=== PATIENT | female | born 1945 | race Caucasian/White ===

== ENCOUNTER 2024-11-12 11:23 | Outpatient (AMB) | payer MEDICARE, SELFPAY ==
--- NOTE | 2024-11-12 11:28 | A.OFFPC_ITS ---
Vital Signs 11/12/24 11:30 Height 5 ft 3.2 in Weight 171 lb BMI 30.1 BP 126/60 Blood Pressure Location Rt brachial Position Sitting Respiration 18 Pulse 52 Pulse Source Pulse Oximeter Temp 98.1 F Temp Source Oral Pulse Oximetry (%) 95 Oxygen Delivery Method Room Air Intake Visit Reasons: Est care HTN Intake Note: Pt is here today for New patient visit. Allergies No Known Allergies Allergy (Verified 11/12/24 11:34) Medication List - Last Reconciled 11/12/24 by Carolina Madison MD amiodarone 200 mg PO DAILY amlodipine-olmesartan 10-40 mg 1 tab PO DAILY biotin PO citalopram 10 mg PO DAILY glucosamine-chondroitin (Osteo Bi-Flex) PO indapamide 1.5 mg PO QAM levothyroxine 75 mcg PO DAILY mecobalamin (vitamin B12) PO rivaroxaban (Xarelto) 15 mg PO DAILY Tobacco use date assessed: 11/12/24 Fall risk assessment: No Falls in past year Last assessed Fall Risk: 11/12/24 Dental Screening Dental Screen Date: 11/12/24 Did you have a dental visit in the last 12 months?: Yes Did you have a dental problem in the last 6 months where you did not have access to dental care?: No Was dental information given to patient?: Patient has dentist HPI Est care HTN HPI Details 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 She lives in [place] for most of the year but comes to visit her family for 3 months in the summer. Past medical history includes hypertension new onset AFib with a in the last year and hypothyroidism. Patient does not have any medical records. Her daughter is concerned about patient's fluctuating blood pressure and low heart rate. Patient denies palpitation chest pain shortness or breath nausea vomiting. [facility] Medical History (Updated 11/12/24 @ 17:02 by Carolina Madison MD) GERD (gastroesophageal reflux disease) A-fib HTN (hypertension) Surgical History (Updated 11/12/24 @ 12:22 by Carolina Madison MD) Hx of thyroidectomy Hx of breast surgery History of back surgery Family History (Updated 11/12/24 @ 11:42 by Umm Alvarado Rosa) Father Hypertension Heart attack Mother No problems noted. Social History (Updated 11/12/24 @ 17:02 by Carolina Madison MD) Household Members Other:: , lives in [place] for most of the year Housing: House Patient Tobacco Use Status: Former Tobacco user e-Cigarette/Vaping Use: Never Used service: No Current occupational status: retired Cognitive needs: No Hearing needs: No Vision needs: Yes Questionnaire PHQ-9 Over the last 2 weeks, how often have you been bothered by any of the following problems? 1. Little interest or pleasure in doing things: not at all 2. Feeling down, depressed, or hopeless: not at all 3. Trouble falling or staying asleep, or sleeping too much: not at all 4. Feeling tired or having little energy: not at all 5. Poor appetite or overeating: several days 6. Feeling bad about yourself - or that you are a failure or have let yourself or your family down: not at all 7. Trouble concentrating on things, such as reading the newspaper or watching television: not at all 8. Moving or speaking so slowly that other people could have noticed. Or the opposite - being so fidgety or restless that you have been moving around a lot more than usual: not at all 9. Thoughts that you would be better off or of hurting yourself in some way: not at all Total score: 1 Depression Screening Interpretation: Negative Depression Screening Done: Yes 15696 - PHQ-9 Billing: Yes Source: Developed by Drs. Candido De Oliveira, [place], Jomar Diamond and colleagues, with an educational jeny from [employer]. AUDIT C Alcohol Use Questionnaire (AUDIT-C) 1. How often do you have a drink containing alcohol?: Never 3. How often do you have six or more drinks on one occasion?: Never Total Score: 0 Review of Systems Const All systems reviewed & are unremarkable except as noted in HPI and below Eyes Reports no additional complaints ENT Reports no additional complaints Card Reports no additional complaints Resp Reports no additional complaints GI Reports no additional complaints Reports no additional complaints Physical exam (Primary Care) Vital Signs: Last Vital Signs Temp 98.1 F 11/12/24 11:30 Pulse 52 11/12/24 11:30 Resp 18 11/12/24 11:30 BP 126/60 11/12/24 11:30 Pulse Ox 95 11/12/24 11:30 Oxygen Delivery Method Room Air 11/12/24 11:30 BMI result Body Mass Index 30.1 Tobacco/Smoking Status: Tobacco use Status Tobacco use date assessed 11/12/24 11/12/24 11:42 Patient Tobacco Use Status Former Tobacco user 11/12/24 11:42 e-Cigarette/Vaping Use Never Used 11/12/24 11:42 PHQ-9: PHQ-9 Score PHQ-9: Total score 1 11/12/24 12:30 Depression Screening Interpretation: Negative Const General: no acute distress HENMT Head: Yes normal to inspection Face and sinus: Yes normal facial exam Throat: Yes posterior oropharynx normal Eyes General: appearance normal, both eyes and all related structures Neck Neck: Yes supple Resp Effort & Inspection: normal respiratory effort Auscultation: clear to auscultation bilaterally Cardio Rhythm: regular rhythm Heart sounds: S1 normal heart sound present and S2 normal heart sound present GI Inspection: Yes normal to inspection Palpation (GI): Soft to palpation Percussion: Yes normal to percussion Auscultation: normal bowel sounds Extrem Other: Trace pedal edema bilaterally Coding Level of Care Code New Pt Level 4 (71718) Complex EM visit Add On G2211 Diagnoses Hx of colonoscopy Z98.890 GERD (gastroesophageal reflux disease) K21.9 A-fib I48.91 HTN (hypertension) I10 Additional Codes PHQ-9 - 14058 - PHQ-9 Billing: Yes ([id number]) Assessment & Plan Assessment & Plan (1) Hx of colonoscopy: Comment: 2021 negative, Dr. Tobias Code(s): Z98.890 - Other specified postprocedural states Category: Surgical Plan: up to date (2) GERD (gastroesophageal reflux disease): Comment: Chronic GERD on PPI, patient will have EGD by GI Code(s): K21.9 - Gastro-esophageal reflux disease without esophagitis Category: Medical Plan: Continue PPI (3) A-fib: Comment: 01/2024 dxd in [place] Code(s): I48.91 - Unspecified atrial fibrillation Category: Medical Plan: Anticoagulated on Xarelto and rhythm controlled on amiodarone. Obtain echoca rdiogram (4) HTN (hypertension): Code(s): I10 - Essential (primary) hypertension Category: Medical Plan: Continue current medications patient will return for fasting labs Orders: Orders Comprehensive [place]. Panel Fast Today I10 - Essential (primary) hypertension, I48.91 - Unspecified atrial fibrillation, I50.9 - Heart failure, unspecified TSH reflex Free T4 Today I10 - Essential (primary) hypertension, I48.91 - Unspecified atrial fibrillation, I50.9 - Heart failure, unspecified Lipid Panel Today I10 - Essential (primary) hypertension, I48.91 - Unspecified atrial fibrillation, I50.9 - Heart failure, unspecified Vitamin D 25-OH Total Today I10 - Essential (primary) hypertension, I48.91 - Unspecified atrial fibrillation, I50.9 - Heart failure, unspecified Complete Blood Count Auto Diff Today I10 - Essential (primary) hypertension, I48.91 - Unspecified atrial fibrillation, I50.9 - Heart failure, unspecified B Type Natriuretic Peptide Today I10 - Essential (primary) hypertension, I48.91 - Unspecified atrial fibrillation, I50.9 - Heart failure, unspecified CA echo transthoracic complete Today I50.9 - Heart failure, unspecified AMB EKG-In Office Today I10 - Essential (primary) hypertension, I48.91 - Unspecified atrial fibrillation Referrals Gastroenterology Referral K21.9 - Gastro-esophageal reflux disease without esophagitis Medications: New amlodipine-olmesartan 10-40 mg 1 tab PO DAILY 90 tabs 0RF
[2024-11-12 11:30] VITALS: BP 126/60; PULSE 52; RESP 18; TEMP 36.7; O2SAT 95; BMI 30.1
--- OUTSIDE RECORDS SUMMARY | 2024-11-12 11:44 | XMS_ITS | Clinical Summary ---
Author Organization [facility] Address [address] [place] [address] Care Team Providers Care Manufacturing Project Manager Name Role Phone Nicolette Wilson DO Primary Care Provider [phone] Allergies No known active allergies Medications Medication Sig Dispensed Refills Start Date End Date Status levothyroxine (SYNTHROID, LEVOXYL) tablet 100 mcg Take 100 mcg by mouth daily. 3 06/06/2017 Active irbesartan (AVAPRO) 300 MG tablet TAKE ONE TABLET BY MOUTH DAILY 3 06/06/2017 Active amLODIPine (NORVASC) tablet 5 mg Take 5 mg by mouth daily. 3 06/06/2017 Active hydroCHLOROthiazide (MICROZIDE) 12.5 MG capsule TAKE 1 CAPSULE ONCE A DAY ORALLY 90 DAYS 3 06/06/2017 Active citalopram (CELEXA) 20 MG tablet Take 20 mg by mouth daily. 0 Active fluocinonide (LIDEX) 0.05 % external solution Apply 0.25 application topically 2 (two) times a day. 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 BMI 31.0-31.9,adult 08/05/2017 Breast cancer 06/17/2009 Overview: Left Breast Tx lumpectomy and XRT 01/2010 Osteopenia Depression Immunizations Name Administration Dates Next Due Pneumococcal Conjugate PCV13 09/21/2017 Family History Medical History Relation Name Comments Coronary artery disease Father Stroke Father Breast cancer Maternal Cousin Hypertension Mother Stroke Mother Relation Name Status Comments Brother Father [place], CVD Maternal Cousin Breast Cance r Maternal Grandfather Maternal Grandmother Mother CVD, HTN Paternal Grandfather Paternal Grandmother Sister Alive Social History Tobacco Use Types Packs/Day Years Used Date Smoking Tobacco: Former Smokeless Tobacco: Never Alcohol Use Standard Drinks/Week Comments No 0 (1 standard drink = 0.6 oz pur e alcohol) Sex and Gender Information Value Date Recorded Sex Assigned at Not on file Gender Identity Not on file Sexual Orientation Not on file Last Filed Vital Signs Vital Sign Reading Time Taken Comments Blood Pressure 108/62 08/05/2017 1:10 PM EST Pulse 64 08/05/2017 1:10 PM EST Temperature 36.9 ??C (98.4 ??F) 08/05/2017 1:10 PM ES T Respiratory Rate 16 08/05/2017 1:10 PM EST Oxygen Saturation 93% 08/05/2017 1:10 PM EST Inhaled Oxygen Concentration - - Weight 83.9 kg (185 lb) 08/05/2017 1:10 PM EST P t reported Height 162.6 cm (5' 4 ) 08/05/2017 1:10 PM EST P t reporrted Body Mass Index 31.76 08/05/2017 1:10 PM EST Plan of Treatment Health Maintenance Due Date Last Done Comments Hepatitis C Screening 1945 COVID-19 Vaccine (#1) 1950 Depression Screening 1957 Preventative Health Evaluation 09/04/1963 DTap / Tdap / Td (1 - Tdap) 1964 Shingrix-Zoster Vaccine (1 of 2) 1964 Fall Risk Assessment 2010 Osteoporosis Screening (DEXA Scan) 2010 Pneumococcal Vaccine (2 of 2 - PPSV23 or PCV20) 11/16/2017 09/21/2017 RSV Adult > 60+ Yrs or Pregn ant (1 - 1-dose 75+ series) 2020 Influenza Vaccine (#1) 2024 Hepatitis B Vaccines Aged Out No long er eligible based on patient's age to complete this topic RSV Ped < 20 months Aged Out No longe r eligible based on patient's age to complete this topic Care Teams Manufacturing Project Manager Relationship Specialty Start Date End Date Nicolette Wilson DO PCP - General Family Medicine 07/16/17
== END 2024-11-12 17:05 | disposition home or self-care (01) ==
LOC: HO.HMCC 11:24
PROVIDERS: PCP Internal Medicine; Visit Provider Internal Medicine
DX: Z98.890 Other specified postprocedural states (principal); K21.9 Gastro-esophageal reflux disease without esophagitis; I48.91 Unspecified atrial fibrillation; I10 Essential (primary) hypertension

== ENCOUNTER → 2024-11-12 11:23 | Outpatient (BNVA) | payer MEDICARE, SELFPAY | PROVIDERS: PCP Internal Medicine; Visit Provider Internal Medicine | DX: K21.9 Gastro-esophageal reflux disease without esophagitis (principal); I10 Essential (primary) hypertension; I48.91 Unspecified atrial fibrillation; Z98.890 Other specified postprocedural states | CPT/HCPCS: 96127; 99202 ==

== ENCOUNTER → 2024-11-17 09:57 | Outpatient (REF) | payer MEDICARE, SELFPAY ==
--- NOTE | 2024-11-17 10:04 | CA_ITS ---
Transthoracic Echocardiogram Patient (Last, First, Middle): Ingris Mitchell, Gender: Female Date of : 1945 Age: 79 Procedure Date: 11/17/2024 Procedure Type: Transthoracic Echocardiogram Location: OP Height: 160.02 cm Weight: 77.57 kg BSA: 1.81 m2 Heart Rate: bpm BP: 126 / 60 mmHg Petroleum Engineer: TESSA Referring MD: Carolina Madison MD Symptoms: I50.9 - Heart failure, unspecified Study Quality: Adequate ECG Rhythm: Sinus Conclusions: - The left ventricular systolic function is normal. The calculated ejection fraction is 66% by biplane method. - There is moderate to severe aortic valve regurgitation. - There is moderate dilatation of the ascending aorta measuring 5.00 cm. Findings Left Ventricle Normal left ventricular cavity size. There is normal left ventricular wall thickness. The left ventricular systolic function is normal. The calculated ejection fraction is 66% by biplane method. There is no evidence of regional wall motion abnormalities. Evidence suggests grade I (mild) diastolic dysfunction. Right Ventricle Normal right ventricular cavity size and systolic function. Atria The left atrium is moderately dilated. The right atrium is mildly dilated. Aortic Valve There is a normal trileaflet aortic valve. There is no aortic valve stenosis. There is moderate to severe aortic valve regurgitation. Mitral Valve There is mild mitral annular calcification. There is mild mitral valve regurgitation. There is no mitral valve stenosis. Pulmonic Valve The pulmonic valve is likely normal. Tricuspid Valve There is mild tricuspid valve regurgitation. Mild pulmonary hypertension is present. Great Vessels The aortic annulus and aortic arch are normal in size. There is moderate dilatation of the ascending aorta measuring 5.00 cm. Venous The inferior vena cava is mildly dilated and collapses less than 50% with inspiration. Pericardium/Pleural There is no evidence of pericardial effusion. Prior Study Comparison Changes noted compared to prior study dated: 09/21/2016. Progression of aortic regurgitation; increase in ascending aortic size. Measurements 2D Linear Measurements IVSd: 1.00 0.6-0.9/0.6-1.0 cm LVIDd: 5.37 3.9-5.3/4.2-5.9 cm LVIDd Index: 2.97 2.4-3.2/2.2-3.1 cm/m2 LVIDs: 3.46 2.0-3.6 cm LVPWd: 0.77 0.7-1.1 cm LA Diam: 4.30 2.7-3.8/3.0-4.0 cm LAIDs Index: 2.38 1.5-2.3 cm/m2 LV Mass: 216.55 67-162/88-224 g LV Mass Index: 119.64 43-95/49-115 g/m2 LVOT Diam: 2.00 3.0+(-)1.3 cm 2D Systolic Function EF 4C: 65.40 >55% EF 2C: 67.10 >55% EF BiP: 66.40 >55% Mitral Valve MV Pk E: 1.22 MV PK A: 1.21 MV Decel Time: 243.00 E/A: 1.00 E'Lateral: 6.42 E'Medial: 6.64 E/E' Med: 18.40 E/E' Lat: 19.00 PHT: 71.00 MVA PHT: 3.10 Decel Freeborn: 5.04 Aortic Valve AoV Pk Neal: 2.70 AoV Mn Neal: 1.92 AoV VTI: 0.85 AoV Pk Grad: 29.00 Aov Mn Grad: 17.00 NILES Cont.VTI: 2.00 AI Pk Neal: 4.50 AI Freeborn: 2.96 LVOT LVOT Pk Neal: 1.81 LVOT Mn Neal: 1.12 LVOT VTI: 0.54 LVOT Pk Grad: 13.00 LVOT Mn Grad: 6.00 LVOT Diam: 2.00 LVOT Area: 3.14 Diastolic Function MV Pk E: 1.22 MV Pk A: 1.21 E/A: 1.00 E'Medial: 6.64 E/E' Med: 18.40 E' Laterial: 6.42 E/E' Lat: 19.00 Right Ventricle TAPSE (mm): 24.00 TVS' Neal: 11.50 Tricuspid Valve TR Pk Neal: 2.73 TR Pk Grad: 30.00 RA Press: 15.00 RVSP: 45.00 Great Vessels Aorta Sinus of Valsalva: 3.21 2.0-3.5 cm Ao Asc: 5.00 2.1-3.4 cm Ao Arch: 3.40 Updated in Other Vendor System with Status of Final Mian Cowan MD electronically signed on 11/17/2024 3:51:26 PM with status of Final
--- OUTSIDE RECORDS SUMMARY | 2024-11-17 11:23 | XMS_ITS | Clinical Summary ---
Author Organization [facility] Address [address] [place] [address] Care Team Providers Care Archivist Name Role Phone Nicolette Wilson DO Primary Care Provider [phone] Allergies No known active allergies Medications Medication [...] Mother Relation Name Status Comments Brother Father [place], CVD Maternal Cousin Breast Cance r Maternal [...] - 1-dose 75+ series) 2020 Influenza Vaccine (Season Ended) 2025 Hepatitis B Vaccines Aged Out No long er eligible based on patient's age to complete this topic RSV Ped < 20 months Aged Out No longe r eligible based on patient's age to complete this topic Care Teams Archivist Relationship Specialty Start Date End Date Nicolette Wilson DO PCP - General Family Medicine 07/16/17
== END ==
LOC: HO.CARD 09:57
PROVIDERS: PCP Internal Medicine; Visit Provider Internal Medicine
DX: I50.9 Heart failure, unspecified (principal)
CPT/HCPCS: 93306

== ENCOUNTER → 2024-11-17 10:04 | Outpatient (BNV) | payer MEDICARE, SELFPAY | PROVIDERS: PCP Internal Medicine; Visit Provider Internal Medicine | DX: I35.1 Nonrheumatic aortic (valve) insufficiency (principal); I34.0 Nonrheumatic mitral (valve) insufficiency; I51.89 Other ill-defined heart diseases | CPT/HCPCS: 93306 ==

== ENCOUNTER 2024-11-18 11:37 | Outpatient (REF) | payer MEDICARE, SELFPAY ==
--- OUTSIDE RECORDS SUMMARY | 2024-11-18 12:29 | XMS_ITS | Clinical Summary ---
Author Organization [facility] Address [address] [place] [address] Care Team Providers Care Technical Training Coordinator Name Role Phone Nicolette Wilson DO Primary Care Provider [phone] Allergies No known active allergies Medications Medication [...] Mother Relation Name Status Comments Brother Father [place], CVD Maternal Cousin Breast Cance r Maternal [...] age to complete this topic Care Teams Technical Training Coordinator Relationship Specialty Start Date End Date Nicolette Wilson DO PCP - General Family Medicine 07/16/17
[2024-11-18 13:20] LABS: MANUAL DIFF FLAG NO
[2024-11-18 13:28] LABS: Basophils Absolute Auto 0.1 X10*3/uL (0.0-0.2); Basophils Percent Auto 1.7 % (0-2); Eosinophils Absolute Auto 0.1 X10*3/uL (0.0-0.4); Eosinophils Percent Auto 1.3 % (0-4); Hematocrit 38.5 % (37.0-47.0); Hemoglobin 12.2 g/dl (12.0-16.0); Imm Gran Abs Auto 0.02 X10*3/uL (0.00-0.03); Imm Gran Pct Auto 0.4 % (0.0-0.4); Lymphocytes Percent Auto 19.3 % (20-40); Mean Corpuscular HGB Conc 31.7 g/dl (31.0-35.0); Mean Platelet Volume 10.5 fL (9.4-12.3); Monocytes Absolute Auto 0.5 X10*3/uL (0.1-1.2); Monocytes Percent Auto 9.5 % (2-11); Neutrophils Absolute Auto 3.6 x10*3/uL (2.0-8.3); Neutrophils Percent Auto 67.8 % (45-73); Platelet Count 256 X10*3/uL (160-400); Red Blood Count 3.93 X10*6/uL (4.20-5.50); Red Cell Distribution Width 13.3 % (11.0-16.0); White Blood Count 5.3 X10*3/uL (4.8-10.8)
[2024-11-18 13:51] LABS: B Type Natriuretic Peptide 336 pg/mL (<100)
[2024-11-18 14:47] LABS: Alanine Aminotransferase 10 U/L (0-31); Albumin Level 4.1 g/dL (3.5-5.0); Alkaline Phosphatase 41 U/L (39-117); Anion Gap 9 (12-20); Aspartate Amino Transferase 17 U/L (5-31); Bilirubin Total 0.5 mg/dL (0.0-1.0); Blood Urea Nitrogen 28 mg/dL (9-16); Calcium 9.1 mg/dL (8.4-10.2); Carbon Dioxide 30 mmol/L (22-29); Chloride 108 mmol/L (96-108); Cholesterol 183 mg/dL (<200); Estimated Glomerular Filt Rate 27; Glucose Fasting 96 mg/dL (60-99); HDL Cholesterol 50 mg/dL (>40); LDL Cholesterol Calculated 118 mg/dL (<100); Sodium 143 mmol/L (135-145); TSH reflex Free T4 1.57 uIU/mL (0.32-4.0); Total Protein 6.9 g/dL (6.5-8.0); Triglycerides 79 mg/dL (<150); Vitamin D 25-OH Total 23.5 ng/mL (>30)
== END 2024-11-18 11:38 | disposition home or self-care (01) ==
LOC: HO.HMGCLDS 11:37
PROVIDERS: PCP Internal Medicine; Visit Provider Internal Medicine
DX: I48.91 Unspecified atrial fibrillation (principal); I50.9 Heart failure, unspecified; I10 Essential (primary) hypertension
CPT/HCPCS: 36415; 80053; 80061; 82306; 83880; 84443; 85025

== ENCOUNTER 2024-12-04 13:47 | Outpatient (AMB) | payer MEDICARE, SELFPAY ==
--- OUTSIDE RECORDS SUMMARY | 2024-12-04 13:50 | XMS_ITS | Clinical Summary ---
Author Organization [facility] Address [address] [place] [address] Care Team Providers Care Manager Testing Name Role Phone Nicolette Wilson DO Primary Care Provider [phone] Allergies No known active allergies Medications Medication [...] Mother Relation Name Status Comments Brother Father [place], CVD Maternal Cousin Breast Cance r Maternal [...] 64 08/05/2017 1:10 PM EST Temperature 36.9 C (98.4 F) 08/05/2017 1:10 PM EST Respiratory Rate 16 08/05/2017 1:10 PM EST [...] age to complete this topic Care Teams Manager Testing Relationship Specialty Start Date End Date Nicolette Wilson DO PCP - General Family Medicine 07/16/17
--- NOTE | 2024-12-04 14:02 | MHC.PC.OV ---
Vital Signs 12/04/24 14:03 Height 5 ft 3.2 in Weight 173 lb BMI 30.4 BP 110/58 L Blood Pressure Location Rt brachial Position Sitting Respiration 18 Pulse 50 Pulse Source Pulse Oximeter Temp 98.1 F Temp Source Oral Pulse Oximetry (%) 95 Oxygen Delivery Method Room Air Intake Visit Reasons: Follow up Intake Note: Pt is here today for a follow up visit on BP. Allergies No Known Allergies Allergy (Verified 11/12/24 11:34) Medication List - Last Reconciled 12/04/24 by Carolina Madison MD amiodarone 200 mg PO DAILY amlodipine-olmesartan 10-40 mg 1 tab PO DAILY biotin PO citalopram 10 mg PO DAILY citalopram 20 mg PO DAILY glucosamine-chondroitin (Osteo Bi-Flex) PO indapamide 1.5 mg PO QAM levothyroxine 75 mcg PO DAILY mecobalamin (vitamin B12) PO rivaroxaban (Xarelto) 15 mg PO DAILY Tobacco use date assessed: 11/12/24 Dental Screening Dental Screen Date: 11/12/24 HPI Follow up HPI Details Patient presents for the follow-up on hypertension history of AFib rhythm controlled on amiodarone and anticoagulated on Xarelto. Patient reports fluctuating blood pressure readings at home between 150/60 to 110 over 50. She has been compliant with her medications. Patient reports feeling anxious. She has been taking 10 mg of citalopram but is interested in increasing the dose. [facility] Medical History (Updated 12/04/24 @ 15:41 by Carolina Madison MD) Anxiety Bradycardia CKD (chronic kidney disease) stage 4, GFR 15-29 ml/min Sleep apnea Aortic regurgitation GERD (gastroesophageal reflux disease) A-fib HTN (hypertension) Surgical History Hx of thyroidectomy Hx of breast surgery History of back surgery Family History Father Hypertension Heart attack Mother No problems noted. Social History Household Members Other:: , lives in [place] for most of the year Housing: House Patient Tobacco Use Status: Former Tobacco user e-Cigarette/Vaping Use: Never Used service: No Current occupational status: retired Cognitive needs: No Hearing needs: No Vision needs: Yes Questionnaire Thrive Questionnaire Date Thrive assessed: 12/04/24 I am a: Patient What is your living situation today?: I have a steady place to live Within the past 12 months, did the food you bought not last and you didn't have the money to get more?: Never true Within the past 12 months, did you worry whether your food would run out before you got money to buy more?: Never true Do you have trouble paying for medicines?: Yes Do you have trouble getting transportation to medical appointments?: No Do you have trouble paying your heating and electricity bill?: No Do you have trouble taking care of your child, family member or friend?: No Do you have trouble with day-to-day activities such as bathing, preparing meals, shopping, managing finances, etc.?: No Are you currently unemployed and looking for a job?: No Are you interested in more education?: No Please select the resources that you would like help with: Paying for medicine Currently or been in a relationship where the following occur: No concerns reported THRIVE Score: 0 AUDIT C Alcohol Use Questionnaire (AUDIT-C) 1. How often do you have a drink containing alcohol?: Monthly or less 2. How many drinks containing alcohol do you have on a typical day when you are drinking?: 1 or 2 3. How often do you have six or more drinks on one occasion?: Never Total Score: 1 JEREMY-7 AMB Questionnaire JEREMY-7 Feeling nervous, anxious, or on edge: 0 = Not at all Not being able to stop or control worryin = Not at all Worrying too much about different things: 0 = Not at all Trouble relaxin = Not at all Being so restless that it is hard to sit still: 0 = Not at all Becoming easily annoyed or irritable: 0 = Not at all Feeling afraid as if something awful might happen: 0 = Not at all Total JEREMY-7 score (0-4 normal; 5-9 mild; 10-14 moderate; 15-21 severe): 0 Source: Developed by Drs. Candido De Oliveira, [place], Jomar Diamond and colleagues, with an educational jeny from [employer]. Review of Systems Const All systems reviewed & are unremarkable except as noted in HPI and below ENT Reports no additional complaints Card Reports no additional complaints Resp Reports no additional complaints GI Reports no additional complaints Reports no additional complaints Physical exam (Primary Care) Vital Signs: Last Vital Signs Temp 98.1 F 12/04/24 14:03 Pulse 50 12/04/24 14:03 Resp 18 12/04/24 14:03 BP 110/58 L 12/04/24 14:03 Pulse Ox 95 12/04/24 14:03 Oxygen Delivery Method Room Air 12/04/24 14:03 BMI result Body Mass Index 30.4 Tobacco/Smoking Status: Tobacco use Status Tobacco use date assessed 11/12/24 12/04/24 14:07 Patient Tobacco Use Status Former Tobacco user 12/04/24 14:07 e-Cigarette/Vaping Use Never Used 12/04/24 14:07 Thrive Assessment: Date of Thrive Assessment Date Thrive assessed 12/04/24 12/04/24 14:07 Currently or been in a relationship where the following occur: No concerns reported Const General: no acute distress HENMT Face and sinus: Yes normal facial exam Neck Neck: Yes supple Resp Effort & Inspection: normal respiratory effort Auscultation: clear to auscultation bilaterally Cardio Rate: bradycardic Rhythm: regular rhythm Heart sounds: S1 normal heart sound present and S2 normal heart sound present GI Inspection: Yes normal to inspection Palpation (GI): Soft to palpation Percussion: Yes normal to percussion Extrem General: Yes no clubbing, cyanosis or edema Coding Level of Care Code Est Pt Level 4 (02476) Complex EM visit Add On G2211 Diagnoses CKD (chronic kidney disease) stage 4, GFR 15-29 ml/min N18.4 Sleep apnea G47.30 HTN (hypertension) I10 A-fib I48.91 Aortic regurgitation I35.1 Anxiety F41.9 Assessment & Plan Assessment & Plan (1) CKD (chronic kidney disease) stage 4, GFR 15-29 ml/min: Code(s): N18.4 - Chronic kidney disease, stage 4 (severe) Category: Medical Plan: Patient will have renal ultrasound next month, avoid nephrotoxins monitor renal function (2) Sleep apnea: Comment: History of sleep apnea over 5 years ago Code(s): G47.30 - Sleep apnea, unspecified Category: Medical Plan: Obtain sleep study (3) HTN (hypertension): Code(s): I10 - Essential (primary) hypertension Category: Medical Plan: Continue current medications low-sodium diet discussed with the patient (4) A-fib: Comment: 01/2024 dxd in [place] , EKG consistent with sinus bradycardia question of sick sinus syndrome Code(s): I48.91 - Unspecified atrial fibrillation Category: Medical Plan: Continue amiodarone and anticoagulation. Patient is looking for the install and repair technician (5) Aortic regurgitation: Comment: Echo 10/2024 normal ejection fraction, moderate to severe aortic regurgitation dilated ascending aorta at 5.0 cm Code(s): I35.1 - Nonrheumatic aortic (valve) insufficiency Category: Medical Plan: Patient's daughter is looking for install and repair technician [place] [facility] (6) Anxiety: Code(s): F41.9 - Anxiety disorder, unspecified Category: Medical Plan: Increase citalopram to 20 mg a day follow-up in 3 months with a fasting labs before Orders: Orders Complete Blood Count Auto Diff 3 Months I10 - Essential (primary) hypertension, I48.91 - Unspecified atrial fibrillation, N18.4 - Chronic kidney disease, stage 4 (severe) Vitamin D 25-OH Total 3 Months I10 - Essential (primary) hypertension, I48.91 - Unspecified atrial fibrillation, N18.4 - Chronic kidney disease, stage 4 (severe) UA w Microscopic Today N18.4 - Chronic kidney disease, stage 4 (severe) RT home sleep study Today G47.30 - Sleep apnea, unspecified Comprehensive [place]. Panel Fast 3 Months I10 - Essential (primary) hypertension, I48.91 - Unspecified atrial fibrillation, N18.4 - Chronic kidney disease, stage 4 (severe) Medications: New citalopram 20 mg PO DAILY 30 tabs 3RF
[2024-12-04 14:03] VITALS: BP 110/58; PULSE 50; RESP 18; TEMP 36.7; O2SAT 95; BMI 30.4
== END 2024-12-04 14:49 | disposition home or self-care (01) ==
LOC: HO.HMCC 13:48
PROVIDERS: PCP Internal Medicine; Visit Provider Internal Medicine
DX: I12.9 Hypertensive chronic kidney disease with stage 1 through stage 4 chronic kidney disease, or unspecified chronic kidney disease (principal); N18.4 Chronic kidney disease, stage 4 (severe); I48.91 Unspecified atrial fibrillation; G47.30 Sleep apnea, unspecified; I35.1 Nonrheumatic aortic (valve) insufficiency; F41.9 Anxiety disorder, unspecified

== ENCOUNTER 2024-12-04 13:47 | Outpatient (REF) | payer MEDICARE, SELFPAY ==
[2024-12-04 16:22] LABS: Appearance Urine Clear; Color Urine Yellow; Glucose Urine UA Negative (Negative); Leukocyte Esterase Urine Moderate (2+) (Negative); Nitrite Urine Negative (Negative); UMIC TRIGGER UA YES; Urine Blood Negative (Negative); Urine Ketones Trace mg/dL (Negative); Urine Protein Trace mg/dL (Neg-Trace)
[2024-12-04 16:30] LABS: Bacteria Urine None Seen (None Seen); Hyaline Casts Urine 0-2 /LPF (0-2); RBC Urine 0-2 /HPF (0-2); Squamous Epithelial Cell Urine 0-2 /HPF (0-2)
== END 2024-12-04 13:48 | disposition home or self-care (01) ==
LOC: HO.HMGCLDS 13:47
PROVIDERS: PCP Internal Medicine; Visit Provider Internal Medicine
DX: I12.9 Hypertensive chronic kidney disease with stage 1 through stage 4 chronic kidney disease, or unspecified chronic kidney disease (principal); N18.4 Chronic kidney disease, stage 4 (severe); G47.30 Sleep apnea, unspecified; I48.91 Unspecified atrial fibrillation; I35.1 Nonrheumatic aortic (valve) insufficiency; F41.9 Anxiety disorder, unspecified; Z79.01 Long term (current) use of anticoagulants; Z79.899 Other long term (current) drug therapy
CPT/HCPCS: 81001; 99212

== ENCOUNTER 2024-12-16 13:54 | Outpatient (REF) | payer MEDICARE, SELFPAY ==
--- NOTE | ~2024-12-16 | US_ITS ---
EXAMINATION: US KIDNEY BILATERAL HISTORY: N18.4 - Chronic kidney disease, stage 4 (severe) TECHNIQUE: Real-time grayscale ultrasound imaging of the kidneys was performed and images were reviewed. COMPARISON: There are no prior studies available for comparison. FINDINGS: Right kidney: The right kidney measures 10.3 x 4.6 x 4.6 cm. Renal parenchymal echotexture and thickness are normal. 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 There are peripelvic cysts measuring up to 1.6 cm in size. There is no hydronephrosis or renal calculi. Left Kidney: The left kidney measures 9.5 x 4.9 x 4.8 cm. Renal parenchymal echotexture and thickness are normal. There are peripelvic cysts measuring up to 1.4 cm in size. There is no hydronephrosis or renal calculi. US/US renal BI IMPRESSION: 1. 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 Follow-up is recommended. 2. Bilateral peripelvic cysts as described. Electronically signed by: Candido Rodriguez MD 12/16/2024 02:35 PM EDT
--- OUTSIDE RECORDS SUMMARY | 2024-12-16 14:28 | XMS_ITS | Clinical Summary ---
Author Organization [facility] Address [address] [place] [address] Care Team Providers Care Rn Hematology Name Role Phone Josias Rivers MD Primary Care Provider [phone] Source Comments PLEASE NOTE, if this patient is a minor, it may be UNLAWFUL to discuss sensitive information that is contained in these records (such as FAMILY PLANNING, MENTAL HEALTH or SUBSTANCE ABUSE) with the minor patient's parent or other person without the patient's specific authorization.[facility] Allergies No known active allergies Social History Tobacco Use Types Packs/Day Years Used Date Smoking Tobacco: Former Alcohol Use Standard Drinks/Week Comments No 0 (1 standard drink = 0.6 oz pur e alcohol) Comments No Sex and Gender Information Value Date Recorded Sex Assigned at Not on file Legal Sex Female 6:39 AM PDT Gender Identity Not on file Sexual Orientation Not on file Last Filed Vital Signs Vital Sign Reading Time Taken Comments Blood Pressure 140/98 04/29/2015 10:58 AM EST Pulse 76 04/29/2015 10:58 AM EST Temperature 36.6 C (97.8 F) 04/29/2015 10:58 AM EST Respiratory Rate 19 04/29/2015 10:58 AM EST Oxygen Saturation - - Inhaled Oxygen Concentration - - Weight 78.9 kg (174 lb) 04/29/2015 10:58 AM EST Height 159.4 cm (5' 2.75 ) 04/29/2015 10:[address] Body Mass Index 31.07 04/29/2015 10:58 AM EST Plan of Treatment Not on file Care Teams Rn Hematology Relationship Specialty Start Date End Date Josias Rivers MD [address] [place] [phone] PCP - General Internal Medicine 04/26/15
--- OUTSIDE RECORDS SUMMARY | 2024-12-16 14:28 | XMS_ITS | Clinical Summary ---
Author Organization [facility] Address [address] [place] [address] Care Team Providers Care Hose Suspender Cutter Name Role Phone Nicolette Wilson DO Primary Care Provider [phone] Allergies No known active allergies Medications Medication [...] age to complete this topic Care Teams Hose Suspender Cutter Relationship Specialty Start Date End Date Nicolette Wilson DO PCP - General Family Medicine 07/16/17
--- OUTSIDE RECORDS SUMMARY | 2024-12-16 14:28 | XMS_ITS | Clinical Summary ---
Author Organization [facility] Address [address] [place] [address] Phone Care Team Providers Care Air Intelligence Specialist Name Role Phone Wisam Taylor MD Primary Care Provider [phone] Encounters Date Type Department Care Team Description 11/13/2024 Telephone Gastroenterology [facility] [address] [address] Marisabel Tobias MD appointment from Last 3 Months Social History Tobacco Use Types Packs/Day Years Used Date Smoking Tobacco: Never Assessed Comments Unknown Sex and Gender Information Value Date Recorded Sex Assigned at Not on file Legal Sex Female 10:16 AM EST Gender Identity Not on file Sexual Orientation Not on file Plan of Treatment Upcoming Encounters Date Type Department Care Team ([facility] Contact Info) Description 12/21/2024 9:50 AM EDT Consult [facility] [address] [phone] Hanna Jordan PA [address] [address] Health Maintenance Due Date Last Done Comments COVID-19 Vaccine (#1) 1950 DTaP,Tdap,and Td Vaccines (1 - Tdap) 1964 Zoster Vaccines (1 of 2) 1964 Pneumococcal Vaccine: 50+ Ye ars (2 of 2 - PPSV23) 11/16/2017 09/21/2017 RSV Immunization Adult Patie nts (1 - 1-dose 75+ series) 2020 Cholesterol Screening (Lipid Panel) 11/13/2024 Depression Screening 11/13/2024 Falls Risk Assessment 11/13/2024 Hepatitis C Screening 11/13/2024 Hypertension/CHF/CAD Annual BMP Blood Test 11/13/2024 Medicare Annual Wellness Visit 11/13/2024 Osteoporosis Screening (Bone Density Screening) 11/13/2024 Social Influencers of Health Screening 11/13/2024 Influenza Vaccine (Season Ended) 2025 HIB Vaccines Aged Out No longer eligi ble based on patient's age to complete this topic HPV Vaccines Aged Out No longer eligi ble based on patient's age to complete this topic Hepatitis A Vaccines Aged Out No long er eligible based on patient's age to complete this topic Hepatitis B Vaccines Aged Out No long er eligible based on patient's age to complete this topic IPV Vaccines Aged Out No longer eligi ble based on patient's age to complete this topic MMR Vaccines Aged Out No longer eligi ble based on patient's age to complete this topic Meningococcal ACWY Vaccine Aged Out N o longer eligible based on patient's age to complete this topic Meningococcal B Vaccine Aged Out No l onger eligible based on patient's age to complete this topic RSV Immunization Patients Un raad 20 months Aged Out No longer eligible b ased on patient's age to complete this topic Varicella Vaccines Aged Out No longer eligible based on patient's age to complete this topic Insurance MEDICARE Care Teams Air Intelligence Specialist Relationship Specialty Start Date End Date Wisam Taylor MD [address] [place] [address] PCP - General Internal Medicine 09/11/12
== END 2024-12-16 13:55 | disposition home or self-care (01) ==
LOC: HO.HMGCX 13:54
PROVIDERS: PCP Internal Medicine; Visit Provider Internal Medicine
DX: N18.4 Chronic kidney disease, stage 4 (severe) (principal)
CPT/HCPCS: 76775

== ENCOUNTER → 2024-12-16 13:56 | Outpatient (BNV) | payer MEDICARE, SELFPAY | PROVIDERS: PCP Internal Medicine; Visit Provider Radiology Diagnostic Radiology | DX: N18.4 Chronic kidney disease, stage 4 (severe) (principal) | CPT/HCPCS: 76775 ==

== ENCOUNTER → 2024-12-17 13:58 | Outpatient (REF) | payer MEDICARE, SELFPAY ==
--- OUTSIDE RECORDS SUMMARY | 2024-12-17 14:02 | XMS_ITS | Clinical Summary ---
Author Organization [facility] Address [address] [place] [address] Care Team Providers Care Director Emergency Services Name Role Phone Josias Rivers MD Primary Care Provider Source Comments PLEASE NOTE, if this patient [...] of Treatment Not on file Care Teams Director Emergency Services Relationship Specialty Start Date End Date Josias Rivers MD [address] [place] [phone] PCP - General Internal Medicine 04/26/15
--- OUTSIDE RECORDS SUMMARY | 2024-12-17 14:02 | XMS_ITS | Clinical Summary ---
Author Organization [facility] Address [address] [place] [address] Care Team Providers Care Events Assistant Name Role Phone Nicolette Wilson DO Primary Care Provider [phone] Allergies No known active allergies Medications Medication [...] Mother Relation Name Status Comments Brother Father [place], CVD Maternal Cousin Breast Cance r Maternal [...] age to complete this topic Care Teams Events Assistant Relationship Specialty Start Date End Date Nicolette Wilson DO PCP - General Family Medicine 07/16/17
--- OUTSIDE RECORDS SUMMARY | 2024-12-17 14:02 | XMS_ITS | Clinical Summary ---
Author Organization [facility] Address [address] [place] [address] Phone Care Team Providers Care Program Specialist Name Role Phone Wisam Taylor MD Primary Care Provider [phone] Encounters Date Type Department Care Team Description 11/13/2024 Telephone Gastroenterology [facility] [address] [phone] Marisabel Tobias MD appointment from [...] Upcoming Encounters Date Type Department Care Team ([facility] Contact Info) Description 12/21/2024 9:50 AM EDT Consult [facility] [address] [address] Hanna Jordan PA [address] [address] Health Maintenance Due Date Last Done Comments [...] Influencers of Health Screening 11/13/2024 Influenza Vaccine (#1) 2025 HIB Vaccines Aged Out No longer [...] complete this topic Insurance MEDICARE Care Teams Program Specialist Relationship Specialty Start Date End Date Wisam Taylor MD [address] [place] [address] PCP - General Internal Medicine 09/11/12
== END ==
LOC: HO.SL 13:58
PROVIDERS: PCP Internal Medicine; Visit Provider Internal Medicine
DX: G47.33 Obstructive sleep apnea (adult) (pediatric) (principal); G47.30 Sleep apnea, unspecified
CPT/HCPCS: 95806

== ENCOUNTER 2025-03-09 14:02 | Outpatient (AMB) | payer MEDICARE, SELFPAY ==
--- NOTE | 2025-03-09 14:05 | MHC.PC.OV ---
Vital Signs 03/09/25 14:14 Height 5 ft 3.2 in Weight 170 lb BMI 29.9 BP 108/58 L Blood Pressure Location Rt brachial Position Sitting Respiration 17 Pulse 59 Pulse Source Pulse Oximeter Temp 98.2 F Temp Source Oral Pulse Oximetry (%) 94 Oxygen Delivery Method Room Air Intake Visit Reasons: 3m Follow up Intake Note: Pt is here today for 3 months follow up visit. Allergies No Known Allergies Allergy (Verified 03/09/25 14:15) Tobacco use date assessed: 03/09/25 Fall risk assessment: No Falls in past year Last assessed Fall Risk: 03/09/25 Dental Screening Dental Screen Date: 11/12/24 HPI 3m Follow up HPI Details Patient presents for the follow-up of hypertension, chronic kidney disease stage 4, hypothyroidism, paroxysmal AFib rate controlled on amiodarone and anticoagulated on Xarelto. Patient was evaluated by cardiac surgeon at [facility] for moderately to severe aortic regurgitation and thoracic aortic aneurysm. [facility] Medical History Anxiety Bradycardia CKD (chronic kidney disease) stage 4, GFR 15-29 ml/min Sleep apnea Aortic regurgitation GERD (gastroesophageal reflux disease) A-fib HTN (hypertension) Surgical History Hx of thyroidectomy Hx of breast surgery History of back surgery Family History Father Hypertension Heart attack Mother No problems noted. Social History Household Members Other:: , lives in [place] for most of the year Housing: House Patient Tobacco Use Status: Former Tobacco user e-Cigarette/Vaping Use: Never Used service: No Current occupational status: retired Cognitive needs: No Hearing needs: No Vision needs: Yes Questionnaire PHQ-9 Over the last 2 weeks, how often have you been bothered by any of the following problems? 1. Little interest or pleasure in doing things: not at all 2. Feeling down, depressed, or hopeless: not at all 3. Trouble falling or staying asleep, or sleeping too much: not at all 4. Feeling tired or having little energy: not at all 5. Poor appetite or overeating: several days 6. Feeling bad about yourself - or that you are a failure or have let yourself or your family down: not at all 7. Trouble concentrating on things, such as reading the newspaper or watching television: not at all 8. Moving or speaking so slowly that other people could have noticed. Or the opposite - being so fidgety or restless that you have been moving around a lot more than usual: not at all 9. Thoughts that you would be better off or of hurting yourself in some way: not at all Total score: 1 Depression Screening Interpretation: Negative Depression Screening Done: Yes Source: Developed by Drs. Candido De Oliveira, Jomar Rothman and colleagues, with an educational jeny from [employer]. Thrive Questionnaire Date Thrive assessed: 12/04/24 JEREMY-7 AMB Questionnaire JERMEY-7 Date JEREMY - 7 assessed: 03/09/25 Feeling nervous, anxious, or on edge: 0 = Not at all Not being able to stop or control worryin = Not at all Worrying too much about different things: 0 = Not at all Trouble relaxin = Not at all Being so restless that it is hard to sit still: 0 = Not at all Becoming easily annoyed or irritable: 0 = Not at all Feeling afraid as if something awful might happen: 0 = Not at all Total JEREMY-7 score (0-4 normal; 5-9 mild; 10-14 moderate; 15-21 severe): 0 Source: Developed by Drs. Candido De Oliveira, Jomar Rothman and colleagues, with an educational jeny from [employer]. Review of Systems Const All systems reviewed & are unremarkable except as noted in HPI and below ENT Reports no additional complaints Card Reports no additional complaints Resp Reports no additional complaints GI Reports no additional complaints Reports no additional complaints Physical exam (Primary Care) Vital Signs: Last Vital Signs Temp 98.2 F 03/09/25 14:14 Pulse 59 03/09/25 14:14 Resp 17 03/09/25 14:14 BP 108/58 L 03/09/25 14:14 Pulse Ox 94 03/09/25 14:14 Oxygen Delivery Method Room Air 03/09/25 14:14 BMI result Body Mass Index 29.9 Tobacco/Smoking Status: Tobacco use Status Tobacco use date assessed 03/09/25 03/09/25 14:15 Patient Tobacco Use Status Former Tobacco user 03/09/25 14:06 e-Cigarette/Vaping Use Never Used 03/09/25 14:06 PHQ-9: PHQ-9 Score PHQ-9: Total score 1 03/09/25 14:26 Depression Screening Interpretation: Negative Thrive Assessment: Date of Thrive Assessment Date Thrive assessed 12/04/24 03/09/25 14:06 Const General: no acute distress HENMT Head: Yes normal to inspection Eyes General: appearance normal, both eyes and all related structures Resp Effort & Inspection: normal respiratory effort Auscultation: clear to auscultation bilaterally Cardio Rhythm: regular rhythm Heart sounds: S1 normal heart sound present and S2 normal heart sound present GI Inspection: Yes normal to inspection Palpation (GI): Soft to palpation Percussion: Yes normal to percussion Coding Level of Care Code Est Pt Level 4 (72397) Diagnoses HTN (hypertension) I10 Neuropathy G62.9 Aortic regurgitation I35.1 A-fib I48.91 CKD (chronic kidney disease) stage 4, GFR 15-29 ml/min N18.4 Assessment & Plan Assessment & Plan (1) HTN (hypertension): Code(s): I10 - Essential (primary) hypertension Category: Medical Plan: Continue current medications (2) Neuropathy: Comment: Burning sensation in lower and upper extremities Code(s): G62.9 - Polyneuropathy, unspecified Category: Medical Plan: Check vitamin B12 and D levels (3) Aortic regurgitation: Comment: Echo 10/2024 normal ejection fraction, moderate to severe aortic regurgitation dilated ascending aorta at 5.0 , being evaluated by [facility] Code(s): I35.1 - Nonrheumatic aortic (valve) insufficiency Category: Medical Plan: Follows up with thoracic and cardiac surgeon at [facility] (4) A-fib: Comment: 01/2024 dxd in [place] , EKG consistent with sinus bradycardia question of sick sinus syndrome Code(s): I48.91 - Unspecified atrial fibrillation Category: Medical Plan: ANTICOAGULATED ON XARELTO AND RATE CONTROLLED ON AMIODARONE (5) CKD (chronic kidney disease) stage 4, GFR 15-29 ml/min: Code(s): N18.4 - Chronic kidney disease, stage 4 (severe) Category: Medical Plan: Avoid nephrotoxins monitor renal function, patient has an appointment with diamond die maker today Orders: Orders Vitamin B12 and Folate Today G62.9 - Polyneuropathy, unspecified, I10 - Essential (primary) hypertension Vitamin D 25-OH Total Today G62.9 - Polyneuropathy, unspecified, I10 - Essential (primary) hypertension TSH reflex Free T4 Today G62.9 - Polyneuropathy, unspecified, I10 - Essential (primary) hypertension
[2025-03-09 14:14] VITALS: BP 108/58; PULSE 59; RESP 17; TEMP 36.8; O2SAT 94; BMI 29.9
--- OUTSIDE RECORDS SUMMARY | 2025-03-09 17:18 | XMS_ITS | Clinical Summary ---
Author Organization [facility] Address [address] [facility] [facility] [facility] [address] [place] [address] Phone Care Team Providers [employer] Controls Engineer Name Role Phone Carolina Madison MD Primary Care Provider [phone] Alehsia Leonard MD Unavailable [phone] Bryn Dominguez MD Unavailabl e Allergies Active Allergy Reactions Criticality Noted Date Comments Spice Flavor GI Upset 02/16/2025 Medications amiodarone (PACERONE) 200 MG tablet Take 200 mg by mouth daily. Active amLODIPine-olmes berta (ALEXIS) 10-40 mg per tablet Take 1 tablet by mouth daily. Active citalopram (CELEXA) 20 MG tablet Take 20 mg by mouth daily. Active indapamide (LOZOL) 1.25 mg tablet Take 1.25 mg by mouth every morning. Active levothyroxine (SYNTHROID, LEVOTHROID) 75 MCG tablet Take 75 mcg by mouth every morning. Active rivaroxaban (XARELTO) 15 mg Tab Take 15 mg by mouth daily with dinner. Active Active Problems Problem Noted Date Diagnosed Date S/P cardiac cath 02/09/2025 Aneurysm of ascending aorta without rupture 09/2024 Atrial fibrillation 01/18/2025 Hypertensive disorder 01/18/2025 Severe aortic regurgitation 01/18/2025 On amiodarone therapy 01/18/2025 Stage 4 chronic kidney disease 01/18/2025 Postoperative hypothyroidism 01/18/2025 Encounters Date Type Department Care Team Description 03/08/2025 Orders Only [facility] Division of Cardiac Surgery [address] [facility], 6th [address], [address] [place] [address] Olivier Tate FNP SOB (shortness of breath) (Primary Dx) 02/25/2025 Documentation [facility] of [facility]iac Surgery [address], [address] [place] [address] Olivier Tate FNP 02/22/2025 Telephone [facility] of Cardiac Surgery [address], [address] [place] [address] Aleshia Leonard MD 02/17/2025 9:38 PM EDT - 02/17/2025 11:59 PM EDT Hospital Encounter [facility] Imaging - MRI, [address] Center [address] [place] [address] Bryn Dominguez MD Discharge Disposition: Home or Self Care 02/16/2025 1:45 PM EDT Office Visit [facility] Division of Cardiac Surgery [address], [address] [place] [address] Aleshia Leonard MD Aneurysm of ascending aorta without rupture (Primary Dx) 02/12/2025 1:20 PM EDT Office Visit [facility] Cardiology Referral Images [address] [facility] [address] [place] [address] [facility] Admitting, Provider 02/12/2025 1:15 PM EDT Office Visit [facility] Cardiology Referral Images [address] [address] [facility] Admitting, Provider Diagnosis unknown 02/12/2025 1:10 PM EDT Office Visit [facility] Cardiology Referral Images [address] [facility] [address] [place] [address] [facility] Admitting, Provider Diagnosis unknown 02/12/2025 Procedure Pass [facility] Cardiology Referral Images 125 [facility] [address] [place] [address] 02/12/2025 Procedure Pass [facility] Cardiology Referral Images 125 [facility] [address] [place] [address] 02/12/2025 Orders Only [facility] Cardiovascular Medicine [address] [facility], 5th Floor, [address] [place] [address] Unknown, Jose J, Diagnosis unknown (Primary Dx) 02/12/2025 Documentation [facility] Division of Cardiac Surgery [address], [address] [place] [address] Olivier Tate, MINERAL ENGINEER 02/10/2025 Ancillary Orders [facility] [address] [place] [address] Aleshia Leonard MD 02/09/2025 11:55 AM EDT - 02/09/2025 12:39 PM EDT Surgery [facility] Endoscopy [address] [place] [address] Anastacio Yuen MD TRANSESOPHAGEAL ECHOCARDIOGRAM 02/09/2025 11:39 AM EDT Anesthesia Event [facility] Endoscopy [address] [place] [address] Candido Pryor MD Allen, George Kenton, MD 02/09/2025 9:35 AM EDT - 02/09/2025 11:59 PM EDT Hospital Encounter [facility] Cath/EP Lab [address] [place] [address] Bryn Dominguez MD Discharge Disposition: Home or Self Care 02/09/2025 8:00 AM EDT - 02/09/2025 9:30 AM EDT Surgery [facility] Cath/EP Lab [address] [place] [address] Bryn Dominguez MD Right and Left Heart Catheterization with possible LVGRAM 02/09/2025 7:16 AM EDT - 02/09/2025 1:55 PM EDT Hospital Encounter [facility] Endoscopy [address] [place] [address] Bryn Dominguez MD Discharge Disposition: Home or Self Care 02/09/2025 Procedure Pass [facility] Endoscopy [address] [place] [address] 02/09/2025 Procedure Pass [facility] Cath/EP Lab [address] [place] [address] 01/25/2025 Telephone [facility] Cardiology [address] [place] [address] Vanessa Galicia, FUR FINISHER TAILOR Referral 01/19/2025 Procedure Pass [facility] Imaging - MRI, [address] [place] [address] 01/19/2025 Procedure Pass [facility] Imaging - MRI, [address] [place] [address] 01/19/2025 Telephone [facility] Cardiology [address] [place] [address] Fallon Newberry, ALEXEY CTA of Aorta 01/19/2025 Documentation [facility] Cardiology Virtual Department [address] [place] [address] Bryn Dominguez MD 01/18/2025 1:00 PM EDT Office Visit [facility] Cardiology [address] [place] [address] Bryn Dominguez MD Aneurysm of ascending aorta without rupture (Primary Dx); Severe aortic regurgitation; Hypertensive disorder; Atrial fibrillation, unspecified type; On amiodarone therapy; Postoperative hypothyroidism; Stage 4 chronic kidney disease; Preoperative cardiovascular examination 01/18/2025 Procedure Pass [facility] Cath/EP Lab [address] [place] [address] 12/22/2024 10:20 AM EDT Office Visit [facility] Cardiology Referral Images [address] [facility] [address] [place] [address] [facility] Admitting, Provider Diagnosis unknown 12/22/2024 Telephone [facility] Division of Cardiac Surgery [address] [facility], [address] [place] [address] Aleshia Leonard MD 12/22/2024 Ancillary Orders [facility] General Imaging [address] [place] [address] Aleshia Leonard MD 12/22/2024 Procedure Pass [facility] Cardiology Referral Images [address] [facility] [address] [place] [address] 12/22/2024 Transcribe Orders [facility] Cardiovascular Medicine [address] [facility], 5th Floor, [address] [place] [address] Unknown, MD Jose J Diagnosis unknown (Primary Dx) 12/10/2024 Transcribe Orders [facility] - Virtual Department [address] [place] [address] Carolina Madison MD from Last 3 Months Family History Medical History Relation Comments No Known Problems Brother No Known Problems Daughter 1 No Known Problems Daughter 2 Heart attack Father No Known Problems Mother No Known Problems Sister Relation Status Comments Brother Daughter 1 Alive Daughter 2 Alive Father Mother Sister Alive Social History Tobacco Use Types Packs/Day Years Used Date Smoking Tobacco: Former Cigarettes 0.5 38 1 966 - 2004 Smokeless Tobacco: Never Tobacco Cessation:Counseling Given: Not Answered Comments:Quit 25 years ago Alcohol Use Standard Drinks/Week Comments Yes 2 (1 standard drink = 0.6 oz pur e alcohol) occasionaly Education Answer Date Recorded Are you interested in more education? Not on mellisa e 12/22/2024 Are you concerned about learning? Not on file 12/22/2024 No 12/22/2024 No 12/22/2024 Digital Access Answer Date Recorded No 12/22/2024 No 12/22/2024 Reliable internet access at home? Not on file 12/22/2024 Device with a working camera? Not on file Intimate Partner Violence Answer Date R ecorded Are you denied basic needs s uch as food, clothing, or medical care? No 02/09/2025 In the past 12 months have y ou been in a relationship with a person who hurts, threatens, or tries to control you? No 02/09/2025 Are you denied basic needs s uch as food, clothing, or medical care? No 02/09/2025 In the past 12 months have y ou been in a relationship with a person who hurts, threatens, or tries to control you? No 02/09/2025 Comments No Sex and Gender Information Value Date Recorded Sex Assigned at Not on file Legal Sex Female 6:46 PM EST Gender Identity Not on file Sexual Orientation Not on file Last Filed Vital Signs Vital Sign Reading Time Taken Comments Blood Pressure 152/67 02/16/2025 2:58 PM EDT Pulse 58 02/16/2025 2:58 PM EDT Temperature 36.5 C (97.7 F) 02/16/2025 2:58 PM EDT Respiratory Rate 18 02/16/2025 2:58 PM EDT Oxygen Saturation 92% 02/16/2025 2:58 PM EDT Inhaled Oxygen Concentration - - Weight 77.5 kg (170 lb 14.4 oz) 025 12:59 PM EDT Height 163.5 cm (5' 4.37 ) 01/18/2025 1 2:59 PM EDT Body Mass Index 29 01/18/2025 12:59 PM EDT Plan of Treatment Upcoming Encounters Date Type Department Care Team (Late st Contact Info) Description 03/12/2025 1:00 PM EDT Pre-Admission Testing [facility] Division of Cardiac Surgery [address], [address] [place] [address] Aleshia Leonard MD [address] [place] [phone] MARIA [email or web address] 03/12/2025 2:15 PM EDT Appointment [facility] Pulmonary and Critical Care Unit [address] 2nd [address], [address] [place] [address] Aleshia Leonard MD [address] [place] [address] [email or web address] 03/25/2025 Procedure Pass [facility] PERIOPERATIVE DEPT [address] [place] [phone] 03/25/2025 7:30 AM EDT Hospital Encounter [facility] [address] [place] [phone] Aleshia Leonard MD [address] [place] [phone] MARIA [email or web address] 03/25/2025 7:30 AM EDT - 03/25/2025 1:21 PM EDT Surgery [facility] [address] [place] [phone] Aleshia Leonard MD [address] [place] [address] [place] [address], [place] [address] MARIA [email or web address] AscAoAneurysm Graft Replacement 05/03/2025 1:30 PM EST Office Visit [facility] Cardiology [address] [place] [address] Bryn Dominguez MD [address] [facility], [facility] [place] [address] [email or web address] Scheduled Procedures Name Priority Associated Diagnoses Date/Ti me REPAIR OR REPLACE ANEURYSM ASCENDING AORTA Aortic valve insufficiency, etiology of cardiac valve disease unspecified Ascending aortic aneurysm, unspecified whether ruptured Atrial fibrillation, unspecified type 03/25/2025 7:30 AM EDT AMPUTATION LEFT ATRIAL APPENDAGE Aortic valve insufficiency, etiology of cardiac valve disease unspecified Ascending aortic aneurysm, unspecified whether ruptured Atrial fibrillation, unspecified type 03/25/2025 7:30 AM EDT Health Maintenance Due Date Last Done Comments Adult Td,Tdap Booster 1945 DEPRESSION SCREENING 1957 HEPATITIS C SCREENING 09/04/1963 ZOSTER VACCINES (1 of 2) 09/04/1995 OSTEOPOROSIS SCREENING INITI AL (ONE-TIME) 2010 PNEUMOCOCCAL VACCINES (50+ years) (2 of 2 - PPSV23) 11/16/2017 09/21/2017 RSV VACCINE (1 - 1-dose 75+ series) 2020 INFLUENZA VACCINE (#1) 2025 COVID-19 VACCINE (1 - 2023-2 5 season) 2025 BLOOD PRESSURE 08/16/2025 02/16/2025 ALT LEVEL (ALANINE AMINOTRANSFERASE) 01/18/2026 01/18/2025, 10/10/2009 LIPID PANEL 01/18/2026 01/18/2025 TSH LEVEL 01/18/2026 01/18/2025 CREATININE LEVEL 02/09/2026 02/09/2025, 01/18/2025, 10/10/2009 POTASSIUM LEVEL 02/09/2026 02/09/2025, 01/18/2025, 10/10/2009 SMOKING STATUS SCREENING (On ce After 26 Yrs) Completed 02/16/2025 HEPATITIS A VACCINES Aged Out No long er eligible based on patient's age to complete this topic HIB VACCINES Aged Out No longer eligi ble based on patient's age to complete this topic MENINGOCOCCAL VACCINES (ACWY) Aged Out No longer eligible based on patient's age to complete this topic MENINGOCOCCAL VACCINES (B) Aged Out N o longer eligible based on patient's age to complete this topic Medical Devices Not on file Procedures Procedure Name Priority Date/Time Associated Diagnosis Comments MRI ANGIO ABDOMEN (ABDOMINAL AORTA) WITHOUT CONTRAST Routine 02/17/2025 10:35 PM EDT Aneurysm of ascending aorta without rupture MRI ANGIO CHEST WITHOUT CONTRAST Routine 02/17/2025 10:35 PM EDT Aneurysm of ascending aorta without rupture OUTSIDE CARDIAC CATHETERIZATION Routine 02/12/2025 1:08 PM EDT Diagnosis unknown OUTSIDE ECHO Routine 02/12/2025 1:08 PM EDT Diagnosis unknown OUTSIDE ECHO Routine 02/12/2025 1:08 PM EDT Diagnosis unknown CB COMP W/ AGITATED SALINE Routine 01/16 1:39 PM EDT Severe aortic regurgitation Aneurysm of ascending aorta without rupture Preoperative cardiovascular examination TRANSESOPHAGEAL ECHOCARDIOGRAM 0 02/09/2025 11:11 AM EDT Dysphagia, unspecified type AL ESOPHAGOGASTRODUODENOSCOP Y TRANSORAL DIAGNOSTIC 02/09/2025 11:11 AM EDT Dysphagia, unspecified type ENDOSCOPY PROCEDURE 02/09/2025 11:04 AM EDT CORONARY ARTERIOGRAM Routine 02/09/2025 9:23 AM EDT Severe aortic regurgitation Aneurysm of ascending aorta without rupture Preoperative cardiovascular examination RIGHT AND LEFT HEART CATHETERIZATION WITH POSSIBLE LVGRAM Routine 02/09/2025 9:23 AM EDT Severe aortic regurgitation Aneurysm of ascending aorta without rupture Preoperative cardiovascular examination ECG 12-LEAD Routine 02/09/2025 7:34 AM EDT CBC AND DIFFERENTIAL STAT 02/09/2025 7:30 AM EDT MAGNESIUM STAT 02/09/2025 7:30 AM EDT BASIC METABOLIC PANEL STAT 02/09/2025 7:30 AM EDT CBC AND DIFFERENTIAL Routine 01/18/2025 1:43 PM EDT Severe aortic regurgitation Preoperative cardiovascular examination COMPREHENSIVE METABOLIC PANEL Routine 1:43 PM EDT Severe aortic regurgitation Preoperative cardiovascular examination TSH WITH REFLEX Routine 01/18/2025 1:43 PM EDT Hypothyroidism, unspecified type Preoperative cardiovascular examination LIPID PROFILE WITH DIRECT LDL Routine 1:43 PM EDT Aneurysm of ascending aorta without rupture Preoperative cardiovascular examination NT-PROBNP Routine 01/18/2025 1:43 PM EDT Congestive heart failure ECG 12-LEAD Routine 01/18/2025 1:05 PM EDT Atrial fibrillation, unspecified type Hypertensive disorder OUTSIDE ECHO Routine 12/22/2024 10:16 AM EDT Diagnosis unknown OUTSIDE LAB 12/21/2024 from Last 3 Months Results * MRI ANGIO ABDOMEN (ABDOMINAL AORTA) WITHOUT CONTRAST (02/17/2025 10:35 PM EDT) Anatomical Region Laterality Modality Abdomen Magnetic Resonan ce 02/19/2025 4:53 PM EDT Impressions 02/19/2025 5:34 PM EDT * Aneurysmal ascending aorta (5.1 cm) and mildly dilated descending thoracic aorta (2.7 cm). * No aneurysm in the visualized abdominal aorta. ATTESTATION: I, Dr. Bala Maria as teaching physician, have reviewed the images for this case and if necessary edited the report originally created by Nicolás Alvarez MD. Narrative 02/19/2025 5:34 PM EDT MRI ANGIO CHEST WITHOUT CONTRAST, MRI ANGIO ABDOMEN (ABDOMINAL AORTA) WITHOUT CONTRAST TECHNIQUE: MRA THORACIC AND ABDOMINAL AORTA WITHOUT CONTRAST 3.0 Christina MR Angiogram of the thoracic aorta was performed using routine protocols, without the use of Gadolinium. Due to the nature of 3D MRA acquisition, only limited imaging of the viscera and soft tissues is available for interpretation. 3D IMAGES WITH REFORMATTING AND POST-PROCESSING RECONSTRUCTIONS WERE PERFORMED AND INTERPRETED INDICATIONS:Thoracic aortic aneurysm COMPARISON: Echocardiography report February 09, 2025 FINDINGS: VASCULAR: Aorta: No aortic rupture, dissection, intramural hematoma or wall thickening. Sinus of Valsalva: Not dilated. Sinotubular junction: Effaced. Ascending aorta: Aneurysmal Arch: Left sided, 3 vessel. Descending thoracic aorta: Dilated. THORACIC AORTA MEASUREMENTS: Measurements are as follows (largest diameter short-axis to the centerline): Sinus of Valsalva: 3.4 x 3.1 x 3.2 cm. (Cusp to cusp) Sinotubular junction: 3.8 x 3.7 cm Ascending aorta: 5.1 x 5.0 cm Aortic arch: 3.0 x 3.0 cm Descending aorta: 2.7 x 2.7 cm Suprarenal aorta: 1.8 x 1.7 cm. Infrarenal abdominal aorta: 1.7 x 1.7 cm. The right brachiocephalic, left carotid, and left subclavian artery demonstrate patent flow voids. The celiac artery, superior mesenteric artery, and inferior mesenteric artery demonstrate patent flow voids. Limited evaluation of the bilateral renal arteries. The superior vena cava and brachiocephalic veins are patent. NON VASCULAR: Bilateral renal sinus cysts. Left atrium is dilated (4.4 cm). Procedure Note Bala Maria MD, BECCA - 02/19/2025 MRI ANGIO CHEST WITHOUT CONTRAST, MRI ANGIO ABDOMEN (ABDOMINAL AORTA)WITHOUT CONTRAST TECHNIQUE: MRA THORACIC AND ABDOMINAL AORTA WITHOUT CONTRAST 3.0 Christina MRAngiogram of the thoracic aorta was performed using routine protocols,without the use of Gadolinium. Due to the nature of 3D MRA acquisition,only limited imaging of the viscera and soft tissues is available forinterpretation. 3D IMAGES WITH REFORMATTING AND POST-PROCESSING RECONSTRUCTIONS WEREPERFORMED AND INTERPRETED INDICATIONS:Thoracic aortic aneurysm COMPARISON: Echocardiography report February 09, 2025 FINDINGS: VASCULAR: Aorta: No aortic rupture, dissection, intramural hematoma or wallthickening. Sinus of Valsalva: Not dilated. Sinotubular junction: Effaced. Ascending aorta: Aneurysmal Arch: Left sided, 3 vessel. Descending thoracic aorta: Dilated. THORACIC AORTA MEASUREMENTS: Measurements are as follows (largest diameter short-axis to thecenterline): Sinus of Valsalva: 3.4 x 3.1 x 3.2 cm. (Cusp to cusp) Sinotubular junction: 3.8 x 3.7 cm Ascending aorta: 5.1 x 5.0 cm Aortic arch: 3.0 x 3.0 cm Descending aorta: 2.7 x 2.7 cm Suprarenal aorta: 1.8 x 1.7 cm. Infrarenal abdominal aorta: 1.7 x 1.7 cm. The right brachiocephalic, left carotid, and left subclavian arterydemonstrate patent flow voids. The celiac artery, superior mesentericartery, and inferior mesenteric artery demonstrate patent flow voids.Limited evaluation of the bilateral renal arteries. The superior vena cava and brachiocephalic veins are patent. NON VASCULAR: Bilateral renal sinus cysts. Left atrium is dilated (4.4 cm). IMPRESSION: * Aneurysmal ascending aorta (5.1 cm) and mildly dilated descendingthoracic aorta (2.7 cm). * No aneurysm in the visualized abdominal aorta. ATTESTATION: Dr. Bala Leon as teaching physician, have reviewedthe images for this case and if necessary edited the report originallycreated by Nicolás Alvarez MD. us Bryn Curran MD IMG MR ABDO MEN Final Result * MRI ANGIO CHEST WITHOUT CONTRAST (02/17/2025 10:35 PM EDT) Anatomical Region Laterality Modality Chest Magnetic Resonan ce 02/19/2025 4:53 PM EDT Impressions 02/19/2025 5:34 PM EDT * Aneurysmal ascending aorta (5.1 cm) and mildly dilated descending thoracic aorta (2.7 cm). * No aneurysm in the visualized abdominal aorta. ATTESTATION: I, Dr. Bala Maria as teaching physician, have reviewed the images for this case and if necessary edited the report originally created by Nicolás Alvarez MD. Narrative 02/19/2025 5:34 PM EDT MRI ANGIO CHEST WITHOUT CONTRAST, MRI ANGIO ABDOMEN (ABDOMINAL AORTA) WITHOUT CONTRAST TECHNIQUE: MRA THORACIC AND ABDOMINAL AORTA WITHOUT CONTRAST 3.0 Christina MR Angiogram of the thoracic aorta was performed using routine protocols, without the use of Gadolinium. Due to the nature of 3D MRA acquisition, only limited imaging of the viscera and soft tissues is available for interpretation. 3D IMAGES WITH REFORMATTING AND POST-PROCESSING RECONSTRUCTIONS WERE PERFORMED AND INTERPRETED INDICATIONS:Thoracic aortic aneurysm COMPARISON: Echocardiography report February 09, 2025 FINDINGS: VASCULAR: Aorta: No aortic rupture, dissection, intramural hematoma or wall thickening. Sinus of Valsalva: Not dilated. Sinotubular junction: Effaced. Ascending aorta: Aneurysmal Arch: Left sided, 3 vessel. Descending thoracic aorta: Dilated. THORACIC AORTA MEASUREMENTS: Measurements are as follows (largest diameter short-axis to the centerline): Sinus of Valsalva: 3.4 x 3.1 x 3.2 cm. (Cusp to cusp) Sinotubular junction: 3.8 x 3.7 cm Ascending aorta: 5.1 x 5.0 cm Aortic arch: 3.0 x 3.0 cm Descending aorta: 2.7 x 2.7 cm Suprarenal aorta: 1.8 x 1.7 cm. Infrarenal abdominal aorta: 1.7 x 1.7 cm. The right brachiocephalic, left carotid, and left subclavian artery demonstrate patent flow voids. The celiac artery, superior mesenteric artery, and inferior mesenteric artery demonstrate patent flow voids. Limited evaluation of the bilateral renal arteries. The superior vena cava and brachiocephalic veins are patent. NON VASCULAR: Bilateral renal sinus cysts. Left atrium is dilated (4.4 cm). Procedure Note Bala Maria MD, BECCA - 02/19/2025 MRI ANGIO CHEST WITHOUT CONTRAST, MRI ANGIO ABDOMEN (ABDOMINAL AORTA)WITHOUT CONTRAST TECHNIQUE: MRA THORACIC AND ABDOMINAL AORTA WITHOUT CONTRAST 3.0 Christina MRAngiogram of the thoracic aorta was performed using routine protocols,without the use of Gadolinium. Due to the nature of 3D MRA acquisition,only limited imaging of the viscera and soft tissues is available forinterpretation. 3D IMAGES WITH REFORMATTING AND POST-PROCESSING RECONSTRUCTIONS WEREPERFORMED AND INTERPRETED INDICATIONS:Thoracic aortic aneurysm COMPARISON: Echocardiography report February 09, 2025 FINDINGS: VASCULAR: Aorta: No aortic rupture, dissection, intramural hematoma or wallthickening. Sinus of Valsalva: Not dilated. Sinotubular junction: Effaced. Ascending aorta: Aneurysmal Arch: Left sided, 3 vessel. Descending thoracic aorta: Dilated. THORACIC AORTA MEASUREMENTS: Measurements are as follows (largest diameter short-axis to thecenterline): Sinus of Valsalva: 3.4 x 3.1 x 3.2 cm. (Cusp to cusp) Sinotubular junction: 3.8 x 3.7 cm Ascending aorta: 5.1 x 5.0 cm Aortic arch: 3.0 x 3.0 cm Descending aorta: 2.7 x 2.7 cm Suprarenal aorta: 1.8 x 1.7 cm. Infrarenal abdominal aorta: 1.7 x 1.7 cm. The right brachiocephalic, left carotid, and left subclavian arterydemonstrate patent flow voids. The celiac artery, superior mesentericartery, and inferior mesenteric artery demonstrate patent flow voids.Limited evaluation of the bilateral renal arteries. The superior vena cava and brachiocephalic veins are patent. NON VASCULAR: Bilateral renal sinus cysts. Left atrium is dilated (4.4 cm). IMPRESSION: * Aneurysmal ascending aorta (5.1 cm) and mildly dilated descendingthoracic aorta (2.7 cm). * No aneurysm in the visualized abdominal aorta. ATTESTATION: I, Dr. Bala Maria as teaching physician, have reviewedthe images for this case and if necessary edited the report originallycreated by Nicolás Alvarez MD. Bryn Curran MD IMG MR CHES T Final Result * Outside Cath Study (02/12/2025 1:08 PM EDT) Other Narrative SYSTEMGENERATED, DOCUMENTATION - 02/12/2025 1:08 PM EDT Outside Images for comparison purposes only. Provider [facility] Admitting CV CARDIAC CATH ORDERABLE S Final Result * Outside Echo Report Only (02/12/2025 1:08 PM EDT) Other Narrative SYSTEMGENERATED, DOCUMENTATION - 02/12/2025 1:08 PM EDT Outside Images for comparison purposes only. Provider [facility] Admitting CV ECHO ORDERABLES Final Result * Outside Echo Report Only (02/12/2025 1:08 PM EDT) Other Narrative SYSTEMGENERATED, DOCUMENTATION - 02/12/2025 1:08 PM EDT Outside Images for comparison purposes only. Provider [facility] Admitting CV ECHO ORDERABLES Final Result * CB COMP W/ AGITATED SALINE (02/09/2025 1:39 PM EDT) Aortic Sinus Diameter 34 <40 mm Ascending Aorta Diameter 49 <36 mm Aortic Valve Area 2.1 cm2 Aortic Valve Peak Velocity 2.3 m/s Aortic Valve Peak Gradient 22 mmHg Aortic Valve Mean Gradient 12 mmHg Aortic Valve Prosthetic Peak Gradient 22 mmHg Aortic Valve Prosthetic Mean Gradient 12 mmHg Left Ventricular Outflow Tract Diameter 2.0 cm LVOT VTI REST 45.0 cm Aortic Valve Time Velocity Integral 67.6 cm Aortic Valve Dimensionless Index 0.67 Left Ventricular Outflow Tract Stroke Volume 141 mL Aortic Valve Regurgitation Pressure Half Time 647 ms Tricuspid Valve Peak Velocity 2.3 m/s Right Ventricle to Right Atrium Pressure Gradient 21 mmHg Right Ventricle Peak Systolic Pressure (Assuming RAP 10) 31 mmHg MGB CV ECHO TV RVSP (ASSUMING RAP OF 5) 26 mmHg RVSP (Exclusive of RAP) 21 mmHg MGB CV AV DIMENSIONLESS INDEX (VTI) - STRESS ECHO DOBUT - REST 0.67 Height 164 cm Weight 78.00 kg Body Surface Area 1.80 m2 Systolic BP 143 mmHg Diastolic BP 43 mmHg Aortic Valve Area Index 1.2 cm2/m2 AoV Area Index by Height 0.0 cm Aortic Valve Area Index by Height Squared 0.0 Left Ventricular Outflow Tract Stroke Volume Index 79 >35 mL/m2 Aortic Valve Sinus Index by BSA 19 mm/m2 Aorta Sinus Index by Height 2.07 cm/m Aorta Sinus CSA index by Height 5.53 cm2/m Ascending Aorta Index 27 mm/m2 Asc Aorta CSA Index by Height 11.49 cm2/m Ascending Aorta Index 27 mm Aortic Sinus Index 19 mm Ascending Aorta Diameter 27 mm Aortic Valve Sinus Index 1 19 19 - 27 mm AO ASC DIAM BSA INDEX 27.22 Ejection Fraction 65 50 - 75 % Anatomical Region Laterality Modality Heart Other, Ultrasoun d Narrative 02/09/2025 2:26 PM EDT Normal LV systolic function. EF 65%. Lipomatous hypertrophy. Atrial septum with aneurysmal excursion. PFO suspected. Aortic valve tricuspid. Ascending aorta severely dilated up to 4.9 cm. Moderate aortic regurgitation - suboptimal coaptation of leaflets. Mildly eccentric jet. Mild mitral regurgitation - central jet. Mild tricuspid regurgitation. Estimated PASP exclusive of RA pressure 21 mmHg. No comparison study. Left Ventricle There is normal left ventricular systolic function. The LV ejection fraction is 65%. There are no wall motion abnormalities. Right Ventricle The right ventricle is normal in size. There is normal right ventricular systolic function. Left Atrium The left atrium is dilated. There is no thrombus detected in the left atrial appendage. Right Atrium The right atrium is normal in size. There is a prominent Eustachian valve (normal variant). Mitral Valve The mitral valve appears normal. There is no mitral stenosis. There is mild mitral regurgitation. Tricuspid Valve The tricuspid valve appears normal. There is mild tricuspid regurgitation. The RV systolic pressure was calculated at 21 mmHg (using TR peak velocity of 2.3 m/s and exclusive of RA pressure). Aortic Valve The aortic valve is tricuspid. There is no aortic stenosis. There is moderate aortic regurgitation. Vena contractor 0.59 cm. Jet with ~ 35% of LVOT. The ascending aorta is severely dilated. The ascending aortic diameter is 49 mm (normal: < 36 mm). The ascending aorta index by BSA is 27 mm/m2 (normal: <= 19 mm/m2). The ascending aortic cross-sectional area/height is 11.49 cm2/m (normal: < 10 cm2/m). Pulmonic Valve There is no obvious structural abnormality. Pericardium Trace anterior pericardial fluid versus prominent fat pad. General Findings The image quality was good (2). Propofol used during this echo procedure. For more information regarding the medications administered, please refer to the Epic MAR. Status post: other procedure not listed. Meds reconciled and timeout performed and reviewed (see chart). Consent was obtained from: patient Consent was obtained by: Monster Driscoll MD, PAPO. Consent obtained by: Consent obtained with help of [employer] membership manager as well as family members. Frannie Alves APRN.. Probe-placing MD: Monster Driscoll MD, MBBS. Image acquisition MD: Monster Driscoll MD, MBBS. The predominant rhythm during the study was sinus. Patient tolerated the procedure well. No adverse reaction to medication was noted. . No complications observed during the procedure. There were no probe complications noted. Procedure was performed in the endoscopy suite as a EGD study done initially to rule out any esophageal strictures given her for history of dysphagia. None were noted. No dilatation procedure was required. No difficulty in passing the echo probe. Comparison Findings Compared to prior TTE on 11/17/2024, IAS/IVS There is increased mobility of the interatrial septum. The interatrial septum appears thickened consistent with lipomatous hypertrophy (normal variant). 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 There is evidence suggestive of a patent foramen ovale (PFO) by agitated saline contrast. us Bryn Curran MD CV ECHO ORD ERABLES Final Result * ENDOSCOPY PROCEDURE (02/09/2025 11:04 AM EDT) 02/09/2025 11:0 4 AM EDT Narrative Transcriptions Anastacio Yuen MD - 02/09/2025 11:04 AM EDT [facility] Patient Name: Ingris Mitchell Procedure Date: 02/09/2025 11:04 AM Date of : 1945 Age: 79 Gender: Female Attending MD: Anastacio Yuen MD, Instrument Name: [id number] Diagnostic EGD Procedure: Upper GI endoscopy Indications: Esophageal dysphagia, EGD evaluation prior to CB Providers: Anastacio Yuen MD, Trini Hassan, RN, Raymond Green,RN Medicines: Monitored Anesthesia Care Referring MD: Carolina Madison Complications: No immediate complications. Procedure: Pre-Anesthesia Assessment: - - Using IV propofol under the supervision of an anesthesiologist was determined to be medically necessary for this procedure based on review of the patient's medical history, medications, and prior anesthesia history. - Prior to the procedure, a History and Physicalwas performed, and patient medications and allergieswere reviewed. The patient is competent. The risks and benefits of the procedure and the sedation optionsand risks were discussed with the patient. Allquestions were answered and informed consent was obtained. Patient identification and proposed procedure were verified by the physician in the endoscopy suite. Mental Status Examination: normal. AirwayExamination: normal oropharyngeal airway and neck mobility. Respiratory Examination: clear to auscultation. CV Examination: normal. Prophylactic Antibiotics: The patient does not require prophylactic antibiotics. Prior Anticoagulants: The patient has taken no previous anticoagulant or antiplatelet agents.After reviewing the risks and benefits, the patient was deemed in satisfactory condition to undergo the procedure. The anesthesia plan was to use general anesthesia. Immediately prior to administration of medications, the patient was re-assessed foradequacy to receive sedatives. The heart rate, respiratory rate, oxygen saturations, blood pressure, adequacyof pulmonary ventilation, and response to care were monitored throughout the procedure. The physical status of the patient was re-assessed after the procedure. Informed consent was obtained from the patient following a description of the possiblecomplications involving the procedure including, but not limitedto perforation, bleeding, infection, need for surgery, blood transfusions (unless Bahai),heart and respiratory complications amongst others. The endoscope was passed under direct vision.Throughout the procedure, the patient's blood pressure, pulse, end tidal CO2, and oxygen saturations weremonitored continuously. The Endoscope was introduced throughthe mouth, and advanced to the second part of duodenum. The upper GI endoscopy was accomplished without difficulty. The patient tolerated the procedurewell. Findings: A small hiatal hernia was present. The entire examined stomach was normal. The examined duodenum was normal. Impression: - Small hiatal hernia. - Normal stomach. - Normal examined duodenum. - No specimens collected. Recommendation: - Refer to a office machine embossograph operator as previously scheduled.The CB will be scheduled and endoscopy forcontinuation of her sedation for patient's convenience Anastacio Yuen MD 02/09/2025 11:53:27 AM This report has been signed electronically. Number of Addenda: 0 Estimated Blood Loss: Estimated blood loss: none. [address] [place] [id number] us Unknown Unknown GI PROCEDURE ORDERABLES Final Result * RIGHT AND LEFT HEART CATHETERIZATION WITH POSSIBLE LVGRAM, CORONARY ARTERIOGRAM (02/09/2025 9:23 AMEDT) Anatomical Region Laterality Modality X-Ray Angiograph y Narrative 02/09/2025 9:38 AM EDT Minimal luminal irregularities. Procedure Details Patient informed of risks/benefits, alternatives discussed and questions answered. Consent obtained and placed in chart. Patient brought to the catheterization laboratory in the fasting state. Time out performed with entire team and patient. Access site prepped and draped in standard sterile fashion. Appropriate conscious sedation provided. Access site anesthetized using Lidocaine 2%. Right internal jugular vein accessed using US-guidance, modified Seldinger technique, and micropuncture kit. Sheath upsized to 7F sheath. Clark-Srikanth catheter advanced and balloon inflated. Catheter passed into pulmonary artery, hemodynamics recorded, mixed venous oximetry obtained, and thermodilution cardiac outputs performed. Access site anesthetized using Lidocaine 2%. Right radial artery accessed using US-guidance, modified Seldinger technique, and 6F Glidesheath Slender sheath advanced into the vessel. 5F JR4 catheter advanced into the left ventricle over a wire. Pressure recorded and pullback across the aortic valve performed. 5F JR4 used for RCA. 5F Ryan used for LM. Multiple angiographic views obtained. Equipment removed and hemostasis achieved with manual pressure and TR Band. I, Bryn Curran MD, was personally present for the length of the entire sedation procedure from first injection and continuously throughout for 31 minutes. Patient was stable in post-procedure status. Findings: O2 sats: Arterial 88%, RA 63%, PA 67% RA 8-10, RV 34/12, PA 32/13 (21), PCWP 14 mmHg Kirti Thermodilution CO 3.5 3.02 CI 1.9 1.6 LVEDP 14-16 mmHg Coronary Findings Diagnostic Dominance: Right Left Main: The vessel is large and is angiographically normal. Left Anterior Descending: The vessel is moderate in size. The vessel exhibits minimal luminal irregularities. First Diagonal Branch: The vessel is moderate in size. The vessel exhibits minimal luminal irregularities. Second Diagonal Branch: The vessel is small. Left Circumflex: The vessel is moderate in size. The vessel exhibits minimal luminal irregularities. First Obtuse Marginal Branch: The vessel is small. Second Obtuse Marginal Branch: The vessel is moderate in size and is angiographically normal. Right Coronary Artery: The vessel is large. The vessel exhibits minimal luminal irregularities. Right Posterior Descending Artery: The vessel is moderate in size and is angiographically normal. First Right Posterolateral Branch: The vessel is moderate in size and is angiographically normal. Intervention No interventions have been documented. Study Details Pleasant 79 y.o. 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 Plan Plan/Additional Recommendations: -Routine post-procedure care. us Bryn Curran MD CV CARDIAC CATH ORDERABLES Final Result * ECG 12-LEAD (02/09/2025 7:34 AM EDT) Only the most recent of2 resultswithin the time period is included. Systolic Blood Pressure [facility] Diastolic Blood Pressure [facility] Ventricular Rate EKG/MIN 48 BPM [facility] Atrial Rate 48 BPM [facility] AL Interval 176 ms [facility] QRS Duration 94 ms [facility] QT Interval 528 ms [facility] QTC Interval 471 ms [facility] P [place] 48 degrees [facility] R Wave [place] -20 degrees [facility] T Wave [place] 12 degrees [facility] 02/09/2025 7:34 AM EDT 02/09/2025 8:28 AM EDT Narrative [facility] - 02/09/2025 8:28 AM EDT Sinus bradycardia Otherwise normal ECG When compared with ECG of 18-Jan-2025 13:05, AL interval has decreased Confirmed by Bryn Glez ([id number]) on 02/09/2025 8:28:42 AM Bryn Curran MD ECG ORDERAB LES Final Result [facility] * (ABNORMAL) CBC and differential (02/09/2025 7:30 AM EDT) Only the most recent of2 resultswithin the time period is included. WBC 6.40 4.00 - 11.00 K/uL [facility] RBC 3.97(L) 4.00 - 5.20 M/uL [facility] HGB 12.7 12.0 - 16.0 g/dL [facility] HCT 38.6 36.0 - 46.0 % [facility] PLT 246 150 - 450 K/uL [facility] MCV 97.2 80.0 - 100.0 fL [facility] MCH 32.0(H) 27.0 - 31.0 pg [facility] MCHC 32.9 32.0 - 36.0 g/dL [facility] RDW 13.0 11.5 - 14.5 % [facility] MPV 10.1 8.4 - 12.0 fL [facility] NRBC 0.00 0.00 /100 WBCs [facility] ABSOLUTE NRBC 0.00 0.00 K/uL [facility] DIFF METHOD Auto [facility] NEUTS 60.5 48.0 - 76.0 % [facility] LYMPHS 25.6 18.0 - 41.0 % [facility] MONOS 11.1(H) 4.0 - 11.0 % [facility] EOS 1.7 0.0 - 5.0 % [facility] BASOS 0.9 0.0 - 1.5 % [facility] ABSOLUTE NEUTS 3.87 1.92 - 7.60 K/uL [facility] ABSOLUTE LYMPHS 1.64 0.72 - 4.10 K/uL [facility] ABSOLUTE MONOS 0.71 0.16 - 1.10 K/uL [facility] ABSOLUTE EOS 0.11 0.00 - 0.50 K/uL [facility] ABSOLUTE BASOS 0.06 0.00 - 0.15 K/uL [facility] % IMMATURE GRANS 0.2 0.0 - 0.9 % [facility] Comment:An increased IG of > 2% has been shown to be an early screen for acute infection. IG can also be elevated in severe inflammatory response, MDS, CMPN, etc. ABS IMMATURE GRANS 0.01 0.00 - 0.09 K/uL [facility] Blood 02/09/2025 7:30 AM EDT 02/09/2025 7:35 AM EDT us Bryn Curran MD LAB BLOOD O RDERABLES [place] [address], [facility] [phone] * (ABNORMAL) Magnesium (02/09/2025 7:30 AM EDT) MAGNESIUM 2.8(H) 1.7 - 2.6 mg/dL [facility] Blood 02/09/2025 7:30 AM EDT 02/09/2025 7:35 AM EDT us Bryn Curran MD LAB BLOOD O RDERABLES Final Result Performing Organization Address City/[facility]/ZIP Co de Phone Number [address] [phone] * (ABNORMAL) Basic metabolic panel (02/09/2025 7:30 AM EDT) SODIUM 141 136 - 145 mmol/L [facility] CHLORIDE 103 98 - 107 mmol/L [facility] POTASSIUM 4.1 3.4 - 5.1 mmol/L [facility] CO2 25 20 - 31 mmol/L [facility] BUN 34(H) 6 - 23 mg/dL [facility] CREATININE 2.08(H) 0.5 - 1.0 mg/dL [facility] GLUCOSE 102(H) 70 - 100 mg/dL [facility] CALCIUM 9.5 8.5 - 10.5 mg/dL [facility] EGFR 24 mL/min/1.7 3m2 [facility] Comment:Estimated glomerular filtration rate calculated using the CKD-EPI refit equation. ANION GAP 13 3 - 17 mmol/L [facility] Blood 02/09/2025 7:30 AM EDT 02/09/2025 7:35 AM EDT us Bryn Curran MD LAB BLOOD O RDERABLES Final Result Performing Organization Address [facility]/ZIP Co de Phone Number [address] [phone] * (ABNORMAL) Lipid profile with direct LDL (01/18/2025 1:43 PM EDT) CHOLESTEROL 210(H) 0 - 200 mg/dL [facility] TRIGLYCERIDES 118 0 - 150 mg/dL [facility] HDL 66 40 - 80 mg/dL [facility] LDL Chol (Direct) 134(H) 0 - 130 mg/dL [facility] CARDIAC RISK RATIO 3.2 [facility] Blood 01/18/2025 1:43 PM EDT 01/18/2025 1:46 PM EDT us Bryn Curran MD LAB BLOOD O RDERABLES Final Result Performing Organization Address City/State/[facility] Co de Phone Number [address] [phone] * (ABNORMAL) Comprehensive metabolic panel (01/18/2025 1:43 PM EDT) SODIUM 143 136 - 145 mmol/L [facility] POTASSIUM 4.3 3.4 - 5.1 mmol/L [facility] CHLORIDE 104 98 - 107 mmol/L [facility] CO2 27 20 - 31 mmol/L [facility] BUN 33(H) 6 - 23 mg/dL [facility] CREATININE 2.08(H) 0.5 - 1.0 mg/dL [facility] GLUCOSE 89 70 - 100 mg/dL [facility] ALBUMIN 4.4 3.5 - 5.0 g/dL [facility] TOTAL PROTEIN 7.3 6.4 - 8.3 g/dL [facility] CALCIUM 9.2 8.5 - 10.5 mg/dL [facility] ALKALINE PHOSPHATASE 47 40 - 130 U/L [facility] TOTAL BILIRUBIN 0.4 0 - 1.2 mg/dL [facility] AST 13 0 - 33 U/L [facility] ALT 10 0 - 34 U/L [facility] EGFR 24 mL/min/1.7 3m2 [facility] Comment:Estimated glomerular filtration rate calculated using the CKD-EPI refit equation. ANION GAP 12 3 - 17 mmol/L [facility] Blood 01/18/2025 1:43 PM EDT 01/18/2025 1:46 PM EDT us Bryn Curran MD LAB BLOOD O RDERABLES Final Result [address] [phone] * TSH with reflex (01/18/2025 1:43 PM EDT) SCREENING PANEL: TSH 2.77 0.34 - 5.9 uIU/mL [facility] Blood 01/18/2025 1:43 PM EDT 01/18/2025 1:46 PM EDT us Bryn Curran MD LAB BLOOD O RDERABLES Final Result Performing Organization Address [facility]/ZIP Co de Phone Number [address] [phone] * NT-proBNP (01/18/2025 1:43 PM EDT) NT-PROBNP 628 0 - 1,800 pg/mL [facility] Blood 01/18/2025 1:43 PM EDT 01/18/2025 1:46 PM EDT us Brny Curran MD LAB BLOOD O RDERABLES Final Result Performing Organization Address City/[facility]/ZIP Co de Phone Number [address] [phone] * Outside Echo Report Only (12/22/2024 10:16 AM EDT) Other Narrative SYSTEMGENERATED, DOCUMENTATION - 12/22/2024 10:16 AM EDT Outside Images for comparison purposes only. us Provider [facility] Admitting CV ECHO ORDERABLES Final Result * Outside Lab (12/21/2024) us Scanning Interface Provider LAB BLOOD ORDERABLES Final Result from Last 3 Months Insurance MEDICARE PART A & B MEDICARE PART A & B MEDICARE PART A & B MEDICARE PART A & B MEDICARE PART A & B Advance Directives For more information, please contact: [phone] (9AM - 5PM [facility], Saturday-Saturday) Documents on File Type Date Recorded Patient Lifter Driver Expl anation Advance Directive - Non Epic LMR 10/10/2009 12:00 AM [employer] 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 It is not the complete legal health record.[facility]
--- OUTSIDE RECORDS SUMMARY | 2025-03-09 17:18 | XMS_ITS | Clinical Summary ---
Author Organization [facility] Address [address] [place] [address] Care Team Providers Care Shell Mold Bonder Name Role Phone Nicolette Wilson DO Primary Care Provider [phone] Allergies No known active allergies Medications Medication [...] Mother Relation Name Status Comments Brother Father [place], CVD Maternal Cousin Breast Cance r Maternal [...] 1-dose 75+ series) 2020 Influenza Vaccine (#1) 2025 Hepatitis B Vaccines Aged Out No long er eligible based on patient's age to complete this topic RSV Ped < 20 months Aged Out No longe r eligible based on patient's age to complete this topic Care Teams Shell Mold Bonder Relationship Specialty Start Date End Date Nicolette Wilson DO PCP - General Family Medicine 07/16/17
--- OUTSIDE RECORDS SUMMARY | 2025-03-09 17:18 | XMS_ITS | Encounter Summary ---
Author Organization [facility] Address [address] [place] [address] Phone Care Team Providers Care Sales Representative Meats Name Role Phone Carolina Madison MD Primary Care Provider [phone] Aleshia Leonard MD Unavailable [phone] Bryn Dominguez MD Unavailabl e Encounter Details Date Type Department Care Team (Late st Contact Info) Description 02/12/2025 Procedure Pass [facility] Cardiology Referral Images [address] [place] [address] Social History Tobacco Use Types Packs/Day Years Used Date Smoking Tobacco: Former Cigarettes Smokeless Tobacco: Never Comments:Quit 25 years ago Alcohol Use Standard Drinks/Week Comments Yes 0 (1 standard drink = 0.6 oz [...] on file Sexual Orientation Not on file documented as of this encounter Plan of Treatment Upcoming Encounters Date Type Department Care Team (Late st Contact Info) Description 03/12/2025 1:00 PM EDT Pre-Admission Testing [facility] Division of Cardiac Surgery [address] 6th [address], [address] [place] [address] Aleshia Leonard MD [address] [place] [id number] MARIA [email or web address] 03/12/2025 2:15 PM EDT Appointment [facility] Pulmonary and Critical Care Unit [address] [place] [address], 2nd Floor, [address] [place] [address] Aleshia Leonard MD [address] [place] [id number] [email or web address] 03/25/2025 Procedure Pass [facility] PERIOPERATIVE DEPT [address] [place] [phone] 03/25/2025 7:30 AM EDT Hospital Encounter [facility] PERIOPERATIVE DEPT [address] [place] [phone] Aleshia Leonard MD [address] [place] [phone] [email or web address] 03/25/2025 7:30 AM EDT - 03/25/2025 1:21 PM EDT Surgery [facility] PERIOPERATIVE DEPT [address] [place] [phone] Aleshia Leonard MD [address] [place] [id number] MARIA [email or web address] Graft Replacement 05/03/2025 1:30 PM EST Office Visit [facility] Cardiology [address] [place] [address] Bryn Dominguez MD [address] [place] [address] [email or web address] Scheduled Procedures Name Priority Associated Diagnoses Date/Ti [...] fibrillation, unspecified type 03/25/2025 7:30 AM EDT documented as of this encounter Visit Diagnoses Not on filedocumented in this encounter Care Teams Sales Representative Meats Relationship Specialty Start Date End Date Carolina Madison MD [address] [place] [address] PCP - General Internal Medicine 12/10/24 Aleshia Leonard MD [address] [place] [id number] [email or web address] Thoracic Surgery 01/26/25 Bryn Dominguez MD [address] [place] [address] [email or web address] Cardiology 02/25/25 documented as of this encounter Additional Source Comments The information contained in this document represents components of the legal health record. It is not the complete legal health record.[facility]
--- OUTSIDE RECORDS SUMMARY | 2025-03-09 17:18 | XMS_ITS | Encounter Summary ---
Author Organization [facility] Address [address] [facility] [address] [place] [address] Phone Care Team Providers Care Government Sales Manager Name Role Phone Carolina Madison MD Primary Care Provider [phone] Aleshia Leonard MD Unavailable [phone] Bryn Dominguez MD Unavailabl e Encounter Details Date Type Department Care Team (Late st Contact Info) Description 02/09/2025 Procedure Pass [facility] Cath/EP Lab [address] [place] [address] Social History Tobacco Use Types Packs/Day Years [...] Description 03/12/2025 1:00 PM EDT Pre-Admission Testing [facility] Division of Cardiac Surgery [address] [facility], 6th Floor, [address] [place] [address] Aleshia Leonard MD [address] [place] [address] MARIA VICTORIA@[facility] 03/12/2025 2:15 PM EDT Appointment [facility] Pulmonary and Critical Care Unit [address] [place] [address], 2nd Floor, [address] [place] [address] Aleshia Leonard MD [address] [place] [address] MARIA VICTORIA@[facility] 03/25/2025 Procedure Pass [facility] PERIOPERATIVE DEPT [address] [place] [phone] 03/25/2025 7:30 AM EDT Hospital Encounter [facility] PERIOPERATIVE DEPT [address] [place] [phone] Aleshia Leonard MD [address] [place] [address] MARIA VICTORIA@[facility] 03/25/2025 7:30 AM EDT - 03/25/2025 1:21 PM EDT Surgery [facility] PERIOPERATIVE DEPT [address] [place] [phone] Aleshia Leonard MD [address] [place] [address] MARIA VICTORIA@[email or web address] AscAoAneurysm Graft Replacement 05/03/2025 1:30 PM EST Office Visit [facility] Cardiology [address] [place] [address] Bryn Dominguez MD 19 [place] [address] [email or web address] Scheduled Procedures Name Priority Associated Diagnoses [...] on filedocumented in this encounter Care Teams Government Sales Manager Relationship Specialty Start Date End Date Carolina Madison MD [address] [facility] [place] [address] PCP - General Internal Medicine 12/10/24 Aleshia Leonard MD [address] [place] [address] [address] [place] [address] MARIA VICTORIA@[email or web address] Thoracic Surgery 01/26/25 Bryn Dominguez MD [address] [place] [address] [email or web address] Cardiology 02/25/25 documented as of this encounter Additional Source Comments The information contained in this document represents components of the legal health record. It is not the complete legal health record.[facility]
--- OUTSIDE RECORDS SUMMARY | 2025-03-09 17:18 | XMS_ITS | Encounter Summary ---
Author Organization [facility] Address [address] [place] [address] Phone Care Team Providers Care Plate Straightener Name Role Phone Carolina Madison MD Primary Care Provider [phone] Aleshia Leonard MD Unavailable [phone] Bryn Dominguez MD Unavailabl e Encounter Details Date Type Department Care Team (Late st Contact Info) Description 03/08/2025 Orders Only [facility] Division of Cardiac Surgery [address] [facility], 6th Floor, [address] [place] [address] Olivier Tate FNP [address] [facility] [address] [place] [address] [email or web address] SOB (shortness of breath) (Primary Dx) Social History Tobacco Use Types Packs/Day Years Used Date Smoking Tobacco: Former Cigarettes 0.5 38 1 966 - 2004 Smokeless Tobacco: Never Comments:Quit 25 years ago [...] Description 03/12/2025 1:00 PM EDT Pre-Admission Testing [facility] Division of Cardiac Surgery [address] [facility], 6th Floor, [address] [place] [address] Aleshia Leonard MD [address] [place] [address] MARIA VICTORIA@[facility] 03/12/2025 2:15 PM EDT Appointment [facility] Pulmonary and Critical Care Unit [address] [place] [address], 2nd Floor, [address] [place] [address] Aleshia Leonard MD [address] [place] [address] MARIA VICTORIA@[facility] 03/25/2025 Procedure Pass [facility] PERIOPERATIVE DEPT [address] [place] [phone] 03/25/2025 7:30 AM EDT Hospital Encounter [facility] PERIOPERATIVE DEPT [address] [place] [phone] Aleshia Leonard MD [address] [place] [address] MARIA VICTORIA@[facility] 03/25/2025 7:30 AM EDT - 03/25/2025 1:21 PM EDT Surgery [facility] PERIOPERATIVE DEPT [address] [place] [phone] Aleshia Leonard MD [address] [address] MARIA VICTORIA@[facility] AscAoAneurysm Graft Replacement 05/03/2025 1:30 PM EST Office Visit [facility] Cardiology 19 [place] [address] Bryn Dominguez MD 19 [place] [address] [email or web address] Scheduled Orders Name Type Priority Associated Diagnoses Orde r Schedule Pulmonary Function Test Reason for Exam: Dyspnea/Shortness of Breath; Type of PFT Test: Spirometry with bronchodilator, DLCO, Lung Volumes; Performing Location: [facility] [place]; Request Procedure [place]: PFT; Type: PFT - Complete; [facility] PFT Lab will ... PFT Routine SOB (shortness of breath) Expected: 03/15/2025, Expires: 06/07/2025 Scheduled Procedures Name Priority Associated Diagnoses Date/Ti [...] documented as of this encounter Visit Diagnoses Diagnosis SOB (shortness of breath)- Primary Shortness of breath Aortic valve insufficiency, etiology of cardiac valve disease unspecified Ascending aortic aneurysm, unspecified whether ruptured Atrial fibrillation, unspecified type documented in this encounter Care Teams Plate Straightener Relationship Specialty [place] [address] [place] [address] [place] [address] PCP - General Internal Medicine 12/10/24 Aleshia Leonard MD [address] [place] [address] MARIA VICTORIA@[facility] Thoracic Surgery 01/26/25 Bryn Dominguez MD [address] [place] [address] [email or web address] Cardiology 02/25/25 documented as of this encounter Additional Source Comments The information contained in this document represents components of the legal health record. It is not the complete legal health record.[facility]
--- OUTSIDE RECORDS SUMMARY | 2025-03-09 17:18 | XMS_ITS | Encounter Summary ---
Author Organization [facility] Address [address] [facility] [address] [place] [address] Phone Care Team Providers Care Cytometry Technologist Name Role Phone Caroilna Madison MD Primary Care Provider [phone] Aleshia Leonard MD Unavailable [phone] Bryn Dominguez MD Unavailabl e Encounter Details Date Type Department Care Team (Late st Contact Info) Description 02/09/2025 Procedure Pass [facility] Endoscopy [address] [place] [address] Social History Tobacco Use Types Packs/Day Years [...] Description 03/12/2025 1:00 PM EDT Pre-Admission Testing [facility] Division of Cardiac Surgery [address] [facility], 6th Floor, [address] [place] [address] Aleshia Leonard MD [address] [place] [address] MARIA VICTORIA@[facility] 03/12/2025 2:15 PM EDT Appointment [facility] Pulmonary and Critical Care Unit [address] [place] [address], 2nd Floor, [address] [place] [address] Aleshia Leonard MD [address] [place] [address] MARIA VICTORIA@[facility] 03/25/2025 Procedure Pass [facility] PERIOPERATIVE DEPT [address] [place] [phone] 03/25/2025 7:30 AM EDT Hospital Encounter [facility] PERIOPERATIVE DEPT [address] [place] [phone] Aleshia Leonard MD [address] [place] [address] MARIA VICTORIA@[facility] 03/25/2025 7:30 AM EDT - 03/25/2025 1:21 PM EDT Surgery [facility] PERIOPERATIVE DEPT [address] [place] [phone] Aleshia Leonard MD [address] [place] [address] MARIA VICTORIA@[email or web address] AscAoAneurysm Graft Replacement 05/03/2025 1:30 PM EST Office Visit [facility] Cardiology [address] [place] [address] Bryn Dominguez MD 19 [place] [address] [email or web address] Scheduled Procedures Name Priority Associated Diagnoses [...] on filedocumented in this encounter Care Teams Cytometry Technologist Relationship Specialty Start Date End Date Carolina Madison MD [address] [facility] [place] [address] PCP - General Internal Medicine 12/10/24 Aleshia Leonard MD [address] [place] [address] MARIA VICTORIA@[facility] Thoracic Surgery 01/26/25 Bryn Dominguez MD [address] [place] [address] [email or web address] Cardiology 02/25/25 documented as of this encounter Additional Source Comments The information contained in this document represents components of the legal health record. It is not the complete legal health record.[facility]
--- OUTSIDE RECORDS SUMMARY | 2025-03-09 17:18 | XMS_ITS | Encounter Summary ---
Author Organization [facility] Address [address] [facility] [address] [place] [address] Phone Care Team Providers Care Web Services Architect Name Role Phone Carolina Madison MD Primary Care Provider [phone] Aleshia Leonard MD Unavailable [phone] Bryn Dominguez MD Unavailabl e Encounter Details Date Type Department Care Team (Late st Contact Info) Description 02/12/2025 Procedure Pass [facility] Cardiology Referral Images [address] [place] [address] Social History Tobacco Use Types Packs/Day Years [...] Description 03/12/2025 1:00 PM EDT Pre-Admission Testing [facility] Division of Cardiac Surgery [address] [facility], 6th Floor, [address] [place] [address] Aleshia Leonard MD [address] [place] [address] MARIA VICTORIA@[facility] 03/12/2025 2:15 PM EDT Appointment [facility] Pulmonary and Critical Care Unit [address] [place] [address], 2nd Floor, [address] [place] [address] Aleshia Leonard MD [address] [place] [address] MARIA VICTORIA@[facility] 03/25/2025 Procedure Pass [facility] PERIOPERATIVE DEPT [address] [place] [phone] 03/25/2025 7:30 AM EDT Hospital Encounter [facility] PERIOPERATIVE DEPT [address] [place] [phone] Aleshia Leonard MD [address] [place] [address] MARIA VICTORIA@[facility] 03/25/2025 7:30 AM EDT - 03/25/2025 1:21 PM EDT Surgery [facility] PERIOPERATIVE DEPT [address] [place] [phone] Aleshia Leonard MD [address] [place] [address] MARIA VICTORIA@[facility] AscAoAneurysm Graft Replacement 05/03/2025 1:30 PM EST Office Visit [facility] Cardiology 19 [place] [address] Bryn Dominguez MD 19 [place] [address] [email or web address] Scheduled Procedures Name Priority Associated Diagnoses [...] on filedocumented in this encounter Care Teams Web Services Architect Relationship Specialty Start Date End Date Carolina Madison MD [address] [facility] [place] [place] [address] PCP - General Internal Medicine 12/10/24 Aleshia Leonard MD [address] [place] [address] MARIA VICTORIA@[facility] Thoracic Surgery 01/26/25 Bryn Dominguez MD 19 [place] [address] [email or web address] Cardiology 02/25/25 documented as of this encounter Additional Source Comments The information contained in this document represents components of the legal health record. It is not the complete legal health record.[facility]
--- OUTSIDE RECORDS SUMMARY | 2025-03-09 17:18 | XMS_ITS | Encounter Summary ---
Author Organization [facility] Address [address] [facility] [address] [place] [address] Phone Care Team Providers Care Clothing Supervisor Name Role Phone Carolina Madison MD Primary Care Provider [phone] Aleshia Leonard MD Unavailable [phone] Bryn Dominguez MD Unavailabl e Encounter Details Date Type Department Care Team (Late st Contact Info) Description 01/18/2025 Procedure Pass [facility] Cath/EP Lab [address] [place] [address] Social History Tobacco Use Types Packs/Day Years [...] with a working camera? Not on file Comments No Sex and Gender Information Value Date Recorded Sex Assigned at Not on file Legal Sex Female 6:46 PM EST Gender Identity Not on file Sexual Orientation Not on file documented as of this encounter Plan of Treatment Upcoming Encounters Date Type Department Care Team (Late st Contact Info) Description 03/12/2025 1:00 PM EDT Pre-Admission Testing [facility] Division of Cardiac Surgery [address] [place] [address], 6th Floor, [address] [place] [address] Aleshia Leonard MD [address] [place] [address] MARIA VICTORIA@[facility] 03/12/2025 2:15 PM EDT Appointment [facility] Pulmonary and Critical Care Unit [address] [place] [address], 2nd Floor, [address] [place] [address] Aleshia Leonard MD [address] [place] [address] MARIA VICTORIA@[facility] 03/25/2025 Procedure Pass [facility] PERIOPERATIVE DEPT [address] [place] [phone] 03/25/2025 7:30 AM EDT Hospital Encounter [facility] PERIOPERATIVE DEPT [address] [place] [phone] Aleshia Leonard MD [address] [place] [address] MARIA VICTORIA@[facility] 03/25/2025 7:30 AM EDT - 03/25/2025 1:21 PM EDT Surgery [facility] PERIOPERATIVE DEPT [address] [place] [phone] Aleshia Leonard MD [address] [place] [address] MARIA VICTORIA@[facility] AscAoAneurysm Graft Replacement 05/03/2025 1:30 PM EST Office Visit [facility] [place] [address] Bryn Dominguez MD 19 [place] [address] [email or web address] Scheduled Procedures Name Priority Associated Diagnoses [...] on filedocumented in this encounter Care Teams Clothing Supervisor Relationship Specialty Start Date End Date Carolina Madison MD [address] [facility] [address] PCP - General Internal Medicine 12/10/24 Aleshia Leonard MD [address] [place] [address] MARIA VICTORIA@[facility] Thoracic Surgery 01/26/25 Bryn Dominguez MD 19 [facility] [place] [address] [email or web address] Cardiology 02/25/25 documented as of this encounter Additional Source Comments The information contained in this document represents components of the legal health record. It is not the complete legal health record.[facility]
--- OUTSIDE RECORDS SUMMARY | 2025-03-09 17:18 | XMS_ITS ---
[facility] Name [facility] Unknown Encounters Encounter Type Encounter Reason Primary Diagnosis Location Date Ambulatory [facility] 03/27/2024 Care Team Organization Name Specialty Phone Email Start Date End Da te [facility] 2024
--- OUTSIDE RECORDS SUMMARY | 2025-03-09 17:18 | XMS_ITS | Encounter Summary ---
Author Organization [facility] Address [address] [facility] [address] [place] [address] Phone Care Team Providers Care Rattle Leak And Squeak Repairer Name Role Phone Carolina Madison MD Primary Care Provider [phone] Aleshia Leonard MD Unavailable [phone] Bryn Dominguez MD Unavailabl e Encounter Details Date Type Department Care Team (Late st Contact Info) Description 12/22/2024 Telephone [facility] Division of Cardiac Surgery [address] [facility], 6th Floor, [address] [place] [address] Aleshia Leonard MD [address] [place] [address] [address] [place] [address] MARIA VICTORIA@[facility] Social History Tobacco Use Types Packs/Day Years Used Date Smoking Tobacco: Never Assessed Education Answer Date Recorded Are you interested in more education? Not on mellisa e 12/22/2024 Are you concerned about learning? Not on file 12/22/2024 No 12/22/2024 No 12/22/2024 Digital Access Answer Date Recorded No 12/22/2024 No 12/22/2024 Reliable internet access at home? Not on file 12/22/2024 Device with a working camera? Not on file Comments Unknown Sex and Gender Information Value Date Recorded Sex Assigned at Not on file Legal Sex Female 6:46 PM EST Gender Identity Not on file Sexual Orientation Not on file documented as of this encounter Plan of Treatment Upcoming Encounters Date Type Department Care Team (Late st Contact Info) Description 03/12/2025 1:00 PM EDT Pre-Admission Testing [facility] Division of Cardiac Surgery [address] [facility], 6th Floor, [address] [place] [address] Aleshia Leonard MD [address] [place] [address] MARIA VICTORIA@[facility] 03/12/2025 2:15 PM EDT Appointment [facility] Pulmonary and Critical Care Unit [address] [place] [address], 2nd Floor, [address] [place] [address] Aleshia Leonard MD [address] [place] [address] MARIA VICTORIA@[facility] 03/25/2025 Procedure Pass [facility] PERIOPERATIVE DEPT [address] [place] [phone] 03/25/2025 7:30 AM EDT Hospital Encounter [facility] PERIOPERATIVE DEPT [address] [place] [phone] Aleshia Leonard MD [address] [place] [address] MARIA VICTORIA@[facility] 03/25/2025 7:30 AM EDT - 03/25/2025 1:21 PM EDT Surgery [facility] PERIOPERATIVE DEPT [address] [place] [phone] Aleshia Leonard MD [address] [place] [address] MARIA VICTORIA@[facility] AscAoAneurysm Graft Replacement 05/03/2025 1:30 PM EST Office Visit [facility] Cardiology [address] [place] [address] Bryn Dominguez MD 19 [place] [phone] [email or web address] Scheduled Procedures Name Priority Associated Diagnoses [...] on filedocumented in this encounter Care Teams Rattle Leak And Squeak Repairer Relationship Specialty Start Date End Date Carolina Madison MD [address] [facility] [place] [address] PCP - General Internal Medicine 12/10/24 Aleshia Leonard MD [address] [place] [address] MARIA VICTORIA@[facility] Thoracic Surgery 01/26/25 Bryn Dominguez MD 19 [facility] [place] [address] [email or web address] Cardiology 02/25/25 documented as of this encounter Additional Source Comments The information contained in this document represents components of the legal health record. It is not the complete legal health record.[facility]
--- OUTSIDE RECORDS SUMMARY | 2025-03-09 17:18 | XMS_ITS | Clinical Summary ---
Author Organization [facility] Address [address] [place] [address] Care Team Providers Care Emergency Medical Dispatcher Name Role Phone Josias Rivers MD Primary Care Provider [phone] Source Comments PLEASE NOTE, if this patient [...] of Treatment Not on file Care Teams Emergency Medical Dispatcher Relationship Specialty Start Date End Date Josias Rivers MD [address] [place] [phone] PCP - General Internal Medicine 04/26/15
--- OUTSIDE RECORDS SUMMARY | 2025-03-09 17:18 | XMS_ITS | Encounter Summary ---
Author Organization [facility] Address [address] [place] [address] [place] [address] Phone Care Team Providers Care Room Attendant Name Role Phone Carolina Madison MD Primary Care Provider [phone] Aleshia Leonard MD Unavailable [phone] Bryn Dominguez MD Unavailabl e Encounter Details Date Type Department Care Team (Late st Contact Info) Description 01/19/2025 Procedure Pass [facility] Imaging - MRI, Main [place] [address] [id number] Social History Tobacco Use Types Packs/Day Years [...] Description 03/12/2025 1:00 PM EDT Pre-Admission Testing [facility] Division of Cardiac Surgery [address] [facility], 6th Floor, [address] [place] [address] Aleshia Leonard MD [address] [place] [address] MARIA VICTORIA@[facility] 03/12/2025 2:15 PM EDT Appointment [facility] Pulmonary and Critical Care Unit [address] [place] [address], 2nd Floor, [address] [place] [address] Aleshia Leonard MD [address] [place] [address] MARIA VICTORIA@[facility] 03/25/2025 Procedure Pass [facility] PERIOPERATIVE DEPT [address] [place] [phone] 03/25/2025 7:30 AM EDT Hospital Encounter [facility] PERIOPERATIVE DEPT [address] [place] [phone] Aleshia Leonard MD [address] [place] [address] MARIA VICTORIA@[facility] 03/25/2025 7:30 AM EDT - 03/25/2025 1:21 PM EDT Surgery [facility] PERIOPERATIVE DEPT [address] [place] [phone] Aleshia Leonard MD [address] [place] [phone] MARIA VICTORIA@[facility] AscAoAneurysm Graft Replacement 05/03/2025 1:30 PM EST [place] [address] Bryn Dominguez MD 19 [place] [address] [email or web address] Scheduled Procedures Name Priority Associated Diagnoses [...] on filedocumented in this encounter Care Teams Room Attendant Relationship Specialty Start Date End Date Carolina Madison MD [address] [facility] [place] [address] PCP - General Internal Medicine 12/10/24 Aleshia Leonard MD [address] [place] [address] MARIA VICTORIA@[email or web address] Thoracic Surgery 01/26/25 Bryn Dominguez MD [address] [place] [address] [email or web address] Cardiology 02/25/25 documented as of this encounter Additional Source Comments The information contained in this document represents components of the legal health record. It is not the complete legal health record.[facility]
--- OUTSIDE RECORDS SUMMARY | 2025-03-09 17:18 | XMS_ITS | Encounter Summary ---
Author Organization [facility] Address [address] [place] [address] Phone Care Team Providers Care Clerk Telegraph Service Name Role Phone Carolina Madison MD Primary Care Provider [phone] Aleshia Leonard MD Unavailable [phone] Bryn Dominguez MD Unavailabl e Encounter Details Date Type Department Care Team (Late st Contact Info) Description 12/22/2024 Procedure Pass [facility] Cardiology Referral Images [address] [place] [address] Social History Tobacco Use Types Packs/Day Years [...] Description 03/12/2025 1:00 PM EDT Pre-Admission Testing [facility] Division of Cardiac Surgery [address] [facility], 6th Floor, [address] [place] [address] Aleshia Leonard MD [address] [place] [address] MARIA VICTORIA@[facility] 03/12/2025 2:15 PM EDT Appointment [facility] Pulmonary and Critical Care Unit [address] [place] [address], 2nd Floor, [address] [place] [address] Aleshia Leonard MD [address] [place] [address] MARIA VICTORIA@[facility] 03/25/2025 Procedure Pass [facility] PERIOPERATIVE DEPT [address] [place] [phone] 03/25/2025 7:30 AM EDT Hospital Encounter [facility] PERIOPERATIVE DEPT [address] [place] [phone] Aleshia Leonard MD [address] [place] [address] MARIA VICTORIA@[facility] 03/25/2025 7:30 AM EDT - 03/25/2025 1:21 PM EDT Surgery [facility] PERIOPERATIVE DEPT [address] [place] [phone] Aleshia Leonard MD [address] [place] [address] MARIA VICTORIA@[facility] AscAoAneurysm Graft Replacement 05/03/2025 1:30 PM EST Office Visit [facility] Cardiology [address] [place] [address] Bryn Dominguez MD [address] [place] [address] [email or web address] Scheduled Procedures Name Priority Associated Diagnoses [...] on filedocumented in this encounter Care Teams Clerk Telegraph Service Relationship Specialty Start Date End Date Carolina Madison MD [address] [facility] [place] [address] PCP - General Internal Medicine 12/10/24 Aleshia Leonard MD [address] [place] [address] MARIA VICTORIA@[email or web address] Thoracic Surgery 01/26/25 Bryn Dominguez MD [address] [place] [address] [email or web address] Cardiology 02/25/25 documented as of this encounter Additional Source Comments The information contained in this document represents components of the legal health record. It is not the complete legal health record.[facility]
--- OUTSIDE RECORDS SUMMARY | 2025-03-09 17:18 | XMS_ITS | Encounter Summary ---
Author Organization [facility] Address [address] [place] [address] [place] [address] Phone Care Team Providers Care Adobe Developer Name Role Phone Carolina Madison MD Primary Care Provider [phone] Aleshia Leonard MD Unavailable [phone] Bryn Dominguez MD Unavailabl e Encounter Details Date Type Department Care Team (Late st Contact Info) Description 01/19/2025 Procedure Pass [facility] - MRI, Main [place] [address] [id number] Social History Tobacco Use Types Packs/Day Years [...] Description 03/12/2025 1:00 PM EDT Pre-Admission Testing [facility] Division of Cardiac Surgery [address] [facility], 6th Floor, [address] [place] [address] Aleshia Leonard MD [address] [place] [address] MARIA VICTORIA@[facility] 03/12/2025 2:15 PM EDT Appointment [facility] Pulmonary and Critical Care Unit [address] [place] [address], 2nd Floor, [address] [place] [address] Aleshia Leonard MD [address] [place] [address] MARIA VICTORIA@[facility] 03/25/2025 Procedure Pass [facility] PERIOPERATIVE DEPT [address] [place] [phone] 03/25/2025 7:30 AM EDT Hospital Encounter [facility] PERIOPERATIVE DEPT [address] [place] [phone] Aleshia Leonard MD [address] [place] [address] MARIA VICTORIA@[facility] 03/25/2025 7:30 AM EDT - 03/25/2025 1:21 PM EDT Surgery [facility] PERIOPERATIVE DEPT [address] [place] [phone] Aleshia Leonard MD [address] [place] [address] MARIA VICTORIA@[facility] AscAoAneurysm Graft Replacement 05/03/2025 1:30 PM EST Office [place] [address] Bryn Dominguez MD 19 [place] [address] [email or web address] Scheduled Procedures Name Priority Associated Diagnoses [...] on filedocumented in this encounter Care Teams Adobe Developer Relationship Specialty Start Date End Date Carolina Madison MD [address] [facility] [place] [address] PCP - General Internal Medicine 12/10/24 Aleshia Leonard MD [address] [place] [address] MARIA VICTORIA@[email or web address] Thoracic Surgery 01/26/25 Bryn Dominguez MD [address] [place] [address] [email or web address] Cardiology 02/25/25 documented as of this encounter Additional Source Comments The information contained in this document represents components of the legal health record. It is not the complete legal health record.[facility]
--- OUTSIDE RECORDS SUMMARY | 2025-03-09 17:18 | XMS_ITS | Clinical Summary ---
Author Organization [facility] Address [address] [place] [address] Phone Care Team Providers Care Apprentice Carpenter Name Role Phone Wisam Taylor MD Primary Care Provider [phone] Allergies No known active allergies Medications amLODIPine-olme sartan (ALEXIS) 10-40 mg per tablet Take 1 tablet by mouth 1 (one) time each day. Active citalopram (CeleXA) 20 mg tablet Take 1 tablet (20 mg total) by mouth 1 (one) time each day. Active indapamide (LOZOL) 1.25 mg tablet Take 1.5 mg by mouth 1 (one) time each day in the morning. Active amiodarone (PACERONE) 200 mg tablet Take 1 tablet (200 mg total) by mouth 1 (one) time each day. Active rivaroxaban (XARELTO) 15 mg tablet Take by mouth 1 (one) time each day. Take with food. Active levothyroxine (SYNTHROID, LEVOTHROID) 75 mcg tablet Take 1 tablet (75 mcg total) by mouth 1 (one) time each day before breakfast. Active omeprazole (PriLOSEC) [address] capsule Take 1 capsule (20 mg total) by mouth at bedtime. Do not crush or chew. 30 each 3 12/21/2024 6 Active docusate sodium (Colace) 100 mg capsule Take 1 capsule (100 mg total) by mouth 2 (two) times a day. 60 each 3 12/21/2024 5 Active Encounters Date Type Department Care Team Description 12/21/2024 9:50 AM EDT Consult Gastroenterology - [place] [address] [place] [phone] Hanna Jordan PA Gastroesophageal reflux disease without esophagitis (Primary Dx); Hiatal hernia; Esophageal stenosis; History of colon polyps from Last 3 Months Social History Tobacco Use Types Packs/Day Years Used Date Smoking Tobacco: Never Assessed Comments Unknown Sex and Gender Information Value Date Recorded Sex Assigned at Not on file Legal Sex Female 10:16 AM EST Gender Identity Not on file Sexual Orientation Not on file Last Filed Vital Signs Vital Sign Reading Time Taken Comments Blood Pressure 104/58 12/21/2024 10:04 AM EDT Pulse 65 12/21/2024 10:04 AM EDT Temperature - - Respiratory Rate - - Oxygen Saturation 96% 12/21/2024 10:04 AM EDT Inhaled Oxygen Concentration - - Weight 77.6 kg (171 lb) 12/21/2024 10:04 AM EDT Height 162.6 cm (5' 4 ) 12/21/2024 10:04 AM EDT Body Mass Index 29.35 12/21/2024 10:04 AM EDT Plan of Treatment Upcoming Encounters Date Type Department Care Team (Late st Contact Info) Description 03/24/2025 9:50 AM EDT Office Visit Gastroenterology [address] [phone] Hanna Jordan PA 175 [facility] 200 [place] [address] Health Maintenance Due Date Last Done Comments COVID-19 Vaccine (#1) 1950 Zoster Vaccines (1 of 2) 1964 Pneumococcal Vaccine: 50+ Years (3 of 3 - PPSV23, PCV20 or PCV21) 11/16/2017 09/21/2017, 06/07/2006 RSV Immunization Adult Patients (1 - 1-dose 75+ series) 2020 DTaP,Tdap,and Td Vaccines (3 - Td or Tdap) 06/09/2024 06/09/2014, 11/03/2010 Depression Screening 06/17/2024 Cholesterol Screening (Lipid Panel) 11/13/2024 Falls Risk Assessment 11/13/2024 Hepatitis C Screening 11/13/2024 Hypertension/CHF/CAD Annual BMP Blood Test 11/13/2024 Medicare Annual Wellness Visit 11/13/2024 Osteoporosis Screening (Bone Density Screening) 11/13/2024 Social Influencers of Health Screening 11/13/2024 Influenza Vaccine (#1) 2025 06/06/2017 HIB Vaccines Aged Out No longer eligi [...] to complete this topic RSV Immunization Patients Under 20 months Aged Out No longer eligible b ased on patient's age to complete this topic Varicella Vaccines Aged Out No longer eligible based on patient's age to complete this topic Insurance MEDICARE Care Teams Apprentice Carpenter Relationship Specialty Start Date End Date Wisam Taylor MD [address] [place] [address] PCP - General Internal Medicine 09/11/12
== END 2025-03-09 15:33 | disposition home or self-care (01) ==
LOC: HO.HMCC 14:02
PROVIDERS: PCP Internal Medicine; Visit Provider Internal Medicine
DX: I12.9 Hypertensive chronic kidney disease with stage 1 through stage 4 chronic kidney disease, or unspecified chronic kidney disease (principal); N18.4 Chronic kidney disease, stage 4 (severe); I48.91 Unspecified atrial fibrillation; G62.9 Polyneuropathy, unspecified; I35.1 Nonrheumatic aortic (valve) insufficiency

== ENCOUNTER → 2025-03-09 14:02 | Outpatient (BNVA) | payer MEDICARE, SELFPAY | PROVIDERS: PCP Internal Medicine; Visit Provider Internal Medicine | DX: I12.9 Hypertensive chronic kidney disease with stage 1 through stage 4 chronic kidney disease, or unspecified chronic kidney disease (principal); N18.4 Chronic kidney disease, stage 4 (severe); I48.91 Unspecified atrial fibrillation; G62.9 Polyneuropathy, unspecified; I35.1 Nonrheumatic aortic (valve) insufficiency; Z79.899 Other long term (current) drug therapy | CPT/HCPCS: 96127; 99202; 99212 ==

== ENCOUNTER 2025-03-09 16:11 | Outpatient (AMB) | payer MEDICARE, SELFPAY ==
[2025-03-09 16:14] VITALS: BP 120/48; PULSE 57; O2SAT 91; BMI 30.3
--- NOTE | 2025-03-09 16:14 | HO.NEPHOV_ITS ---
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 - Chronic kidney disease with creatinine 1.78 and kidney function 27% as of November. - Preparing for aortic valve replacement surgery on March 25. - History of hypertension and atrial fibrillation, on amiodarone and Xarelto. - Past surgeries: breast, back, thyroidectomy. - Breast cancer treated 14 years ago with surgery and medications. - History of melanoma. - Reports edema, especially with socks. - Medications: amlodipine, Olmesartan, citalopram, indapamide, levothyroxine, vitamin B12. [facility] History Anxiety Bradycardia CKD (chronic kidney disease) stage 4, GFR 15-29 ml/min Sleep apnea Aortic regurgitation GERD (gastroesophageal reflux disease) A-fib HTN (hypertension) Surgical History Hx of thyroidectomy Hx of breast surgery History of back surgery Family History Father Hypertension Heart attack Mother No problems noted. Social History Household Members Other:: , lives in [place] for most of the year Housing: House Patient Tobacco Use Status: Former Tobacco user e-Cigarette/Vaping Use: Never Used service: No Current occupational status: retired Cognitive needs: No Hearing needs: No Vision needs: Yes Review of Systems Const Denies fever(s) and Denies weight loss Card Denies chest pain Resp Denies cough and Denies hemoptysis GI Denies abdominal pain, Denies diarrhea and Denies nausea Musc Denies back pain Neuro Denies focal weakness Physical Exam Vital Signs: Last Vital Signs Pulse 57 03/09/25 16:14 BP 120/48 L 03/09/25 16:14 Pulse Ox 91 L 03/09/25 16:14 Oxygen Delivery Method Room Air 03/09/25 16:14 BMI result Body Mass Index 30.3 BP 110/40 Sitting and Standing Right UE Physical Exam General: Awake. Comfortable. HENT: Neck supple. Mucosa moist. Pulmonary: Lungs aeration equal. No rales. Cardiology: Heart S1-S2 heard. No gallop.Murmur + Abdomen: Soft. Non tender. Bowel sounds normal. Neurologic: No involuntary movements. No myoclonus. Losing balance, feels like being pulled to one side. Extremities: Trace edema, especially when wearing socks. No rash. Results Reviewed Nephrology Results: Hgb, (12.0-16.0) 12.2 g/dl 11/18/24 WBC, (4.8-10.8) 5.3 X10*3/uL 11/18/24 Plt Count, (160-400) 256 X10*3/uL 11/18/24 Sodium, (135-145) 143 mmol/L 11/18/24 Potassium, (3.3-5.1) 4.0 mmol/L 11/18/24 Chloride, (96-108) 108 mmol/L 11/18/24 Carbon Dioxide, (22-29) 30 mmol/L H 11/18/24 BUN, (9-16) 28 mg/dL H 11/18/24 Creatinine, (0.5-1.4) 1.78 mg/dL H 11/18/24 Calcium, (8.4-10.2) 9.1 mg/dL 11/18/24 Urine Protein, (Neg-Trace) Trace mg/dL 12/04/24 Renal US 12/16/24 Assessment & Plan Assessment & Plan (1) HTN (hypertension): Code(s): I10 - Essential (primary) hypertension Category: Medical (2) CKD (chronic kidney disease) stage 4, GFR 15-29 ml/min: Code(s): N18.4 - Chronic kidney disease, stage 4 (severe) Category: Medical Plan 1. Chronic Kidney Disease Serum creatinine was 1.78 mg/dL with the an estimated GFR of 27 mL/minute in November of 2024 No further readings are available. The exact baseline is not known at this time Urinalysis did not reveal any significant blood or protein. No casts. Renal ultrasonogram in December 2024 was unremarkable. Both kidneys appeared normal. No hydronephrosis. 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 She is on high dose of angiotensin receptor tasha along with a diuretic. Acute kidney injury due to hypoperfusion can not be ruled out yet My recommendation would be to decrease olmesartan by 50%. Discontinue amlodipine/olmesartan 10/40 and replace it with amlodipine olmesartan 10/20 one a day. - Monitor kidney function with blood tests today or tomorrow, repeat in a week to 10 days to see if there is any improvement in renal function after this adjustment. - Adjust medications to optimize kidney function before surgery. - Discussed surgery risks on kidney function, monitor pre/jesse and post- operatively. - Drink at least four glasses of water daily unless otherwise instructed. - Avoid NSAIDs like Aleve, Advil, and Motrin. 2. H/o Hypertension - Adjusted amlodipine and Olmesartan dosage from 10/40 to 10/20. - Reassess medication needs post-surgery. 3. Atrial Fibrillation - Continue amiodarone and Xarelto. At this point there is no absolute contraindication for cardiac surgery. She will returned to the office in the next few weeks prior to the surgery Orders: Orders Basic Metabolic Panel Today I10 - Essential (primary) hypertension, N18.4 - Chronic kidney disease, stage 4 (severe) UA and rflx microscopic Today N18.4 - Chronic kidney disease, stage 4 (severe) Total Protein Urine Random Today N18.4 - Chronic kidney disease, stage 4 (severe) Blood Urea Nitrogen 10 Days N18.4 - Chronic kidney disease, stage 4 (severe) Complete Blood Count no Diff Today N18.4 - Chronic kidney disease, stage 4 (severe) Creatinine Urine Today N18.4 - Chronic kidney disease, stage 4 (severe) Medications: New amlodipine-olmesartan 10-20 mg 1 tab PO DAILY 30 tabs 0RF Discontinued amlodipine-olmesartan 10-40 mg Discontinued Reason: Doctor's Order 1 tab PO DAILY 90 tabs 0RF Coding Level of Care Code New Pt Level 4 (95629) Diagnoses HTN (hypertension) I10 CKD (chronic kidney disease) stage 4, GFR 15-29 ml/min N18.4
== END 2025-03-09 16:46 | disposition home or self-care (01) ==
LOC: HO.HKA 16:11
PROVIDERS: PCP Internal Medicine; Visit Provider Internal Medicine Hypertension Specialist
DX: I12.9 Hypertensive chronic kidney disease with stage 1 through stage 4 chronic kidney disease, or unspecified chronic kidney disease (principal); N18.4 Chronic kidney disease, stage 4 (severe)
CPT/HCPCS: 99204

== ENCOUNTER 2025-03-10 11:28 | Outpatient (REF) | payer MEDICARE, SELFPAY ==
[2025-03-10 12:17] LABS: Hematocrit 37.6 % (37.0-47.0); Hemoglobin 12.6 g/dl (12.0-16.0); Mean Corpuscular HGB Conc 33.5 g/dl (31.0-35.0); Mean Corpuscular Hemoglobin 32.1 pg (27.0-33.0); Mean Corpuscular Volume 95.7 fL (80.0-98.0); NRBC Abs Auto 0.000 X10*3/uL (0.0-0.012); NRBC Pct Auto 0.0 /100WBC (0.0-0.2); Platelet Count 244 X10*3/uL (160-400); Red Blood Count 3.93 X10*6/uL (4.20-5.50); White Blood Count 4.6 X10*3/uL (4.8-10.8)
[2025-03-10 12:38] LABS: Appearance Urine Clear; Glucose Urine UA Negative (Negative); PH 5.5 (5.0-9.0); Specific Gravity - Urine 1.015 (1.005-1.025)
[2025-03-10 13:14] LABS: Anion Gap 12 (12-20); Blood Urea Nitrogen 32 mg/dL (9-16); Calcium 9.0 mg/dL (8.4-10.2); Carbon Dioxide 29 mmol/L (22-29); Chloride 105 mmol/L (96-108); Estimated Glomerular Filt Rate 25; Potassium 4.3 mmol/L (3.3-5.1); Sodium 142 mmol/L (135-145)
[2025-03-10 13:17] LABS: Total Protein Urine Random 10 mg/dL (<12)
[2025-03-10 13:31] LABS: Folate 6.4 ng/mL (> or = 4.0); Vitamin B12 1795 pg/mL (200-900)
--- OUTSIDE RECORDS SUMMARY | 2025-03-10 14:35 | XMS_ITS | Encounter Summary ---
Author Organization [facility] Address [address] [place] [address] Phone Care Team Providers Care Contract Associate Manager Name Role Phone Carolina Madison MD Primary Care Provider [phone] Aleshia Leonard MD Unavailable [phone] Bryn Dominguez MD Unavailabl e Encounter Details Date Type Department Care Team (Late st Contact Info) Description 03/08/2025 Orders Only [facility] Division of Cardiac Surgery [address] [facility], 6th Floor, [address] [place] [address] Olivier aTte FNP [address] [facility] [address] [place] [address] [email or web address] SOB (shortness of breath) (Primary Dx) Social [...] Description 03/12/2025 1:00 PM EDT Pre-Admission Testing [facility] Division of Cardiac Surgery [address] [facility], 6th Floor, [address] [place] [address] Aleshia Leonard MD [address] [place] [address] MARIA VICTORIA@[facility] 03/12/2025 2:15 PM EDT Appointment [facility] Pulmonary and Critical Care Unit [address] [place] [address], 2nd Floor, [address] [place] [address] Aleshia Leonard MD [address] [place] [address] MARIA VICTORIA@[facility] 03/25/2025 Procedure Pass [facility] PERIOPERATIVE DEPT [address] [place] [phone] 03/25/2025 7:30 AM EDT Hospital Encounter [facility] PERIOPERATIVE DEPT [address] [place] [phone] Aleshia Leonard MD [address] [place] [address] MARIA VICTORIA@[facility] 03/25/2025 7:30 AM EDT - 03/25/2025 1:21 PM EDT Surgery [facility] PERIOPERATIVE DEPT [address] [place] [phone] Aleshia Leonard MD [address] [address] MARIA VICTORIA@[facility] AscAoAneurysm Graft Replacement 05/03/2025 1:30 PM EST Office Visit [facility] Cardiology 19 [place] [address] Bryn Dominguez MD 19 [place] [address] [email or web address] Scheduled Orders Name Type Priority Associated Diagnoses Orde r Schedule Pulmonary Function Test Reason for Exam: Dyspnea/Shortness of Breath; Type of PFT Test: Spirometry with bronchodilator, DLCO, Lung Volumes; Performing Location: [facility] Main [place]; Request Procedure [place]: PFT; Type: PFT - Complete; [facility] PFT Lab will ... PFT Routine SOB [...] type documented in this encounter Care Teams Contract Associate Manager Relationship Specialty [place] [address] [place] [address] [place] [address] PCP - General Internal Medicine 12/10/24 Aleshia Leonard MD [address] [place] [address] MARIA VICTORIA@[email or web address] Thoracic Surgery 01/26/25 Bryn Dominguez MD [address] [place] [address] [email or web address] Cardiology 02/25/25 documented as of this encounter Additional Source Comments The information contained in this document represents components of the legal health record. It is not the complete legal health record.[facility]
--- OUTSIDE RECORDS SUMMARY | 2025-03-10 14:35 | XMS_ITS | Encounter Summary ---
Author Organization [facility] Address [address] [facility] [address] [place] [address] Phone Care Team Providers Care Sba Underwriter Name Role Phone Carolina Madison MD Primary Care Provider [phone] Aleshia Leonard MD Unavailable [phone] Bryn Dominguez MD Unavailabl e Encounter Details Date Type Department Care Team (Late st Contact Info) Description 02/12/2025 Procedure Pass [facility] Cardiology Referral Images [address] [place] [address] Social History Tobacco Use Types Packs/Day Years [...] Description 03/12/2025 1:00 PM EDT Pre-Admission Testing [facility] Division of Cardiac Surgery [address] [facility], 6th Floor, [address] [place] [address] Aleshia Leonard MD [address] [place] [address] MARIA VICTORIA@[facility] 03/12/2025 2:15 PM EDT Appointment [facility] Pulmonary and Critical Care Unit [address] [place] [address], 2nd Floor, [address] [place] [address] Aleshia Leonard MD [address] [place] [address] MARIA VICTORIA@[facility] 03/25/2025 Procedure Pass [facility] PERIOPERATIVE DEPT [address] [place] [phone] 03/25/2025 7:30 AM EDT Hospital Encounter [facility] PERIOPERATIVE DEPT [address] [place] [phone] Aleshia Leonard MD [address] [place] [address] MARIA VICTORIA@[facility] 03/25/2025 7:30 AM EDT - 03/25/2025 1:21 PM EDT Surgery [facility] PERIOPERATIVE DEPT [address] [place] [phone] Aleshia Leonard MD [address] [place] [address] MARIA VICTORIA@[email or web address] AscAoAneurysm Graft Replacement 05/03/2025 1:30 PM EST Office Visit [facility] Cardiology 19 [place] [address] Bryn Dominguez MD 19 [place] [address] [email or web address] Scheduled Procedures Name Priority Associated Diagnoses [...] on filedocumented in this encounter Care Teams Sba Underwriter Relationship Specialty Start Date End Date Carolina Madison MD [address] [facility] [place] [address] PCP - General Internal Medicine 12/10/24 Aleshia Leonard MD [address] [place] [address] MARIA VICTORIA@[facility] Thoracic Surgery 01/26/25 Bryn Dominguez MD 19 [place] [address] [email or web address] Cardiology 02/25/25 documented as of this encounter Additional Source Comments The information contained in this document represents components of the legal health record. It is not the complete legal health record.[facility]
--- OUTSIDE RECORDS SUMMARY | 2025-03-10 14:35 | XMS_ITS | Encounter Summary ---
Author Organization [facility] Address [address] [facility] [address] [place] [address] Phone Care Team Providers Care Bicycle Messenger Name Role Phone Carolina Madison MD Primary Care Provider [phone] Aleshia Leonard MD Unavailable [phone] Bryn Dominguez MD Unavailabl e Encounter Details Date Type Department Care Team (Late st Contact Info) Description 02/12/2025 Procedure Pass [facility] Cardiology Referral Images [address] [place] [address] Social History Tobacco Use Types Packs/Day Years [...] Description 03/12/2025 1:00 PM EDT Pre-Admission Testing [facility] Division of Cardiac Surgery [address] [facility], 6th Floor, [address] [place] [address] Aleshia Leonard MD [address] [place] [address] MARIA VICTORIA@[facility] 03/12/2025 2:15 PM EDT Appointment [facility] Pulmonary and Critical Care Unit [address] [place] [address], 2nd Floor, [address] [place] [address] Aleshia Leonard MD [address] [place] [address] MARIA VICTORIA@[facility] 03/25/2025 Procedure Pass [facility] PERIOPERATIVE DEPT [address] [place] [phone] 03/25/2025 7:30 AM EDT Hospital Encounter [facility] PERIOPERATIVE DEPT [address] [place] [phone] Aleshia Leonard MD [address] [place] [address] MARIA VICTORIA@[facility] 03/25/2025 7:30 AM EDT - 03/25/2025 1:21 PM EDT Surgery [facility] PERIOPERATIVE DEPT [address] [place] [phone] Aleshia Leonard MD [address] [place] [address] MARIA VICTORIA@[facility] AscAoAneurysm Graft Replacement 05/03/2025 1:30 PM EST Office Visit [facility] Cardiology 19 [place] [address] Bryn Dominguez MD 19 [place] [address] [email or web address] Scheduled Procedures Name Priority Associated Diagnoses [...] on filedocumented in this encounter Care Teams Bicycle Messenger Relationship Specialty Start Date End Date Carolina Madison MD [address] [facility] [place] [address] PCP - General Internal Medicine 12/10/24 Aleshia Leonard MD [address] [place] [address] MARIA VICTORIA@[facility] Thoracic Surgery 01/26/25 Bryn Dominguez MD 19 [place] [address] [email or web address] Cardiology 02/25/25 documented as of this encounter Additional Source Comments The information contained in this document represents components of the legal health record. It is not the complete legal health record.[facility]
--- OUTSIDE RECORDS SUMMARY | 2025-03-10 14:35 | XMS_ITS | Encounter Summary ---
Author Organization [facility] Address [address] [facility] [address] [place] [address] Phone Care Team Providers Care Mgmt Analyst Name Role Phone Carolina Madison MD Primary Care Provider [phone] Aleshia Leonard MD Unavailable [phone] Bryn Dominguez MD Unavailabl e Encounter Details Date Type Department Care Team (Late st Contact Info) Description 01/18/2025 Procedure Pass [facility] Cath/EP Lab [address] [place] [address] Social History Tobacco Use Types Packs/Day Years [...] Description 03/12/2025 1:00 PM EDT Pre-Admission Testing [facility] Division of Cardiac Surgery [address] [place] [address], 6th Floor, [address] [place] [address] Aleshia Leonard MD [address] [place] [address] MARIA VICTORIA@[facility] 03/12/2025 2:15 PM EDT Appointment [facility] Pulmonary and Critical Care Unit [address] [place] [address], 2nd Floor, [address] [place] [address] Aleshia Leonard MD [address] [place] [phone] MARIA VICTORIA@[facility] 03/25/2025 Procedure Pass [facility] PERIOPERATIVE DEPT [address] [place] [phone] 03/25/2025 7:30 AM EDT Hospital Encounter [facility] PERIOPERATIVE DEPT [address] [place] [phone] Aleshia Leonard MD [address] [place] [address] MARIA VICTORIA@[facility] 03/25/2025 7:30 AM EDT - 03/25/2025 1:21 PM EDT Surgery [facility] PERIOPERATIVE DEPT [address] [place] [phone] Aleshia Leonard MD [address] [place] [address] MARIA VICTORIA@[facility] AscAoAneurysm Graft Replacement 05/03/2025 1:30 PM EST Office Visit [facility] [place] [address] Bryn Dominguez MD [address] [place] [address] [email or web address] Scheduled Procedures Name Priority Associated [...] on filedocumented in this encounter Care Teams Mgmt Analyst Relationship Specialty Start Date End Date Carolina Madison MD [address] [place] [address] PCP - General Internal Medicine 12/10/24 Aleshia Leonard MD [address] [place] [address] MARIA VICTORIA@[email or web address] Thoracic Surgery 01/26/25 Bryn Dominguez MD 19 [facility], [place] [address] [email or web address] Cardiology 02/25/25 documented as of this encounter Additional Source Comments The information contained in this document represents components of the legal health record. It is not the complete legal health record.[facility]
--- OUTSIDE RECORDS SUMMARY | 2025-03-10 14:35 | XMS_ITS | Encounter Summary ---
Author Organization [facility] Address [address] [facility] [address] [place] [address] Phone Care Team Providers Care Tipple Greaser Name Role Phone Carolina Madison MD Primary Care Provider [phone] Aleshia Leonard MD Unavailable [phone] Bryn Dominguez MD Unavailabl e Encounter Details Date Type Department Care Team (Late st Contact Info) Description 02/09/2025 Procedure Pass [facility] Cath/EP Lab [address] [place] [address] Social History Tobacco Use Types Packs/Day Years [...] [place] Division of Cardiac Surgery [address] [facility], 6th Floor, [address] [place] [address] Aleshia Leonard MD [address] [place] [address] MARIA VICTORIA@[facility] 03/12/2025 2:15 PM EDT Appointment [facility] [place] [facility] Pulmonary and Critical Care Unit [address] [place] [address], 2nd Floor, [address] [place] [address] Aleshia Leonard MD [address] [place] [address] MARIA VICTORIA@[facility] 03/25/2025 Procedure Pass [facility] [place] PERIOPERATIVE DEPT [address] [place] [phone] 03/25/2025 7:30 AM EDT Hospital Encounter [facility] [place] PERIOPERATIVE DEPT [address] [place] [phone] Aleshia Leonard MD [address] [place] [phone] MARIA VICTORIA@[facility] 03/25/2025 7:30 AM EDT - 03/25/2025 1:21 PM EDT Surgery [facility] [place] PERIOPERATIVE DEPT [address] [place] [address] [phone] Aleshia Leonard MD [address] [place] [address] MARIA VICTORIA@[email or web address] AscAoAneurysm Graft Replacement 05/03/2025 1:30 PM EST Office Visit [facility] Cardiology [address] [place] [address] Bryn Dominguez MD 19 [place] [address] [email or web address] Scheduled Procedures Name Priority Associated Diagnoses [...] on filedocumented in this encounter Care Teams Tipple Greaser Relationship Specialty Start Date End Date Carolina Madison MD [address] [facility] [place] [address] PCP - General Internal Medicine 12/10/24 Aleshia Leonard MD [address] [place] [address] [address] [place] [address] MARIA VICTORIA@[facility] [email or web address].[facility] Thoracic Surgery 01/26/25 Bryn Dominguez MD 19 [place] [address] [email or web address] Cardiology 02/25/25 documented as of this encounter Additional Source Comments The information contained in this document represents components of the legal health record. It is not the complete legal health record.[facility]
--- OUTSIDE RECORDS SUMMARY | 2025-03-10 14:35 | XMS_ITS | Clinical Summary ---
Author Organization [facility] Address [address] [place] [address] Care Team Providers Care Automotive Buyer Name Role Phone Nicolette Wilson DO Primary Care Provider [phone] Allergies No known active allergies Medications Medication [...] Mother Relation Name Status Comments Brother Father [place], CVD Maternal Cousin Breast Cance r Maternal [...] age to complete this topic Care Teams Automotive Buyer Relationship Specialty Start Date End Date Nicolette Wilson DO PCP - General Family Medicine 07/16/17
--- OUTSIDE RECORDS SUMMARY | 2025-03-10 14:35 | XMS_ITS | Encounter Summary ---
Author Organization [facility] Address [address] [facility] [address] [place] [address] Phone Care Team Providers Care Visual Display Manager Name Role Phone Carolina Madison MD Primary Care Provider [phone] Aleshia Leonard MD Unavailable [phone] Bryn Dominguez MD Unavailabl e Encounter Details Date Type Department Care Team (Late st Contact Info) Description 02/09/2025 Procedure Pass [facility] Endoscopy [address] [place] [address] Social History Tobacco Use Types Packs/Day Years [...] Description 03/12/2025 1:00 PM EDT Pre-Admission Testing [facility] Division of Cardiac Surgery [address] [facility], 6th Floor, [address] [place] [address] Aleshia Leonard MD [address] [place] [address] MARIA VICTORIA@[facility] 03/12/2025 2:15 PM EDT Appointment [facility] Pulmonary and Critical Care Unit [address] [place] [address], 2nd Floor, [address] [place] [address] Aleshia Leonard MD [address] [place] [address] MARIA VICTORIA@[facility] 03/25/2025 Procedure Pass [facility] PERIOPER[facility]IVE DEPT [address] [place] [phone] 03/25/2025 7:30 AM EDT Hospital Encounter [facility]PT [address] [place] [phone] Aleshia Leonard MD [address] [place] [address] MARIA VICTORIA@[facility] 03/25/2025 7:30 AM EDT - 03/25/2025 1:21 PM EDT Surgery [facility]PT [address] [place] [phone] Aleshia Leonard MD [address] [place] [address] MARIA VICTORIA@[email or web address] AscAoAneurysm Graft Replacement 05/03/2025 1:30 PM EST Office Visit [facility] Cardiology [address] [place] [address] Bryn Dominguez MD [address] [place] [address] [email or web address] Scheduled Procedures Name Priority Associated [...] on filedocumented in this encounter Care Teams Visual Display Manager Relationship Specialty Start Date End Date Carolina Madison MD [address] [facility] [place] [address] PCP - General Internal Medicine 12/10/24 Aleshia Leonard MD [address] [place] [address] MARIA VICTORIA@[email or web address] Thoracic Surgery 01/26/25 Bryn Dominguez MD 19 [place] [address] [email or web address] Cardiology 02/25/25 documented as of this encounter Additional Source Comments The information contained in this document represents components of the legal health record. It is not the complete legal health record.[facility]
--- OUTSIDE RECORDS SUMMARY | 2025-03-10 14:35 | XMS_ITS | Clinical Summary ---
Author Organization [facility] Address [address] [place] [address] Phone Care Team Providers Care Big Data Solutions Architect Name Role Phone Wisam Taylor MD Primary Care Provider [phone] Allergies No known active allergies Medications amLODIPine-olme [...] 12/21/2024 9:50 AM EDT Consult Gastroenterology - [place] [address] [place] [phone] Hanna Jordan PA Gastroesophageal reflux disease without [...] 03/24/2025 9:50 AM EDT Office Visit Gastroenterology [address] [phone] Hanna Jordan PA 175 [facility] 200 [place] [address] Health Maintenance Due Date Last Done Comments [...] complete this topic Insurance MEDICARE Care Teams Big Data Solutions Architect Relationship Specialty Start Date End Date Wisam Taylor MD [address] [place] [address] PCP - General Internal Medicine 09/11/12
--- OUTSIDE RECORDS SUMMARY | 2025-03-10 14:35 | XMS_ITS | Encounter Summary ---
Author Organization [facility] Address [address] [place] [address] [place] [address] Phone Care Team Providers Care Supervisor Of Instruction Name Role Phone Carolina Madison MD Primary Care Provider [phone] Aleshia Leonard MD Unavailable [phone] Bryn Dominguez MD Unavailabl e Encounter Details Date Type Department Care Team (Late st Contact Info) Description 01/19/2025 Procedure Pass [facility] Imaging - MRI, Main [place] [address] [phone] Social History Tobacco Use Types Packs/Day Years [...] Description 03/12/2025 1:00 PM EDT Pre-Admission Testing [facility] Division of Cardiac Surgery [address] [facility], 6th Floor, [address] [place] [address] Aleshia Leonard MD [address] [place] [phone] MARIA VICTORIA@[facility] 03/12/2025 2:15 PM EDT Appointment [facility] Pulmonary and Critical Care Unit [address] [place] [address], 2nd Floor, [address] [place] [address] Aleshia Leonard MD [address] [place] [address] MARIA VICTORIA@[facility] 03/25/2025 Procedure Pass [facility] PERIOPERATIVE DEPT [address] [place] [phone] 03/25/2025 7:30 AM EDT Hospital Encounter [facility] PERIOPERATIVE DEPT [address] [place] [phone] Aleshia Leonard MD [address] [place] [phone] MARIA VICTORIA@[facility] 03/25/2025 7:30 AM EDT - 03/25/2025 1:21 PM EDT Surgery [facility] PERIOPERATIVE DEPT [address] [place] [phone] Aleshia Leonard MD [address] [place] [address] MARIA VICTORIA@[facility] AscAoAneurysm Graft Replacement 05/03/2025 1:30 PM EST Office [place] [address] Bryn Dominguez MD [address] [place] [address] [email or web address] Scheduled Procedures Name Priority Associated Diagnoses [...] on filedocumented in this encounter Care Teams Supervisor Of Instruction Relationship Specialty Start Date End Date Carolina Madison MD [address] [place] [address] PCP - General Internal Medicine 12/10/24 Aleshia Leonard MD [address] [place] [address] MARIA VICTORIA@[email or web address] Thoracic Surgery 01/26/25 Bryn Dominguez MD [address] [place] [address] [email or web address] Cardiology 02/25/25 documented as of this encounter Additional Source Comments The information contained in this document represents components of the legal health record. It is not the complete legal health record.[facility]
--- OUTSIDE RECORDS SUMMARY | 2025-03-10 14:35 | XMS_ITS | Encounter Summary ---
Author Organization [facility] Address [address] [place] [address] [place] [address] Phone Care Team Providers Care Blooming Mill Supervisor Name Role Phone Carolina Madison MD Primary Care Provider Aleshia Leonard MD Unavailable [phone] Bryn Dominguez MD Unavailabl e Encounter Details Date Type Department Care Team (Late st Contact Info) Description 01/19/2025 Procedure Pass [facility] Imaging - MRI, Main [place] [address] [phone] Social History Tobacco Use Types Packs/Day Years [...] Description 03/12/2025 1:00 PM EDT Pre-Admission Testing [facility] Division of Cardiac Surgery [address] [facility], 6th Floor, [address] [place] [address] Aleshia Leonard MD [address] [place] [phone] MARIA VICTORIA@[facility] 03/12/2025 2:15 PM EDT Appointment [facility] Pulmonary and Critical Care Unit [address] [place] [address], 2nd Floor, [address] [place] [address] Aleshia Leonard MD [address] [place] [address] MARIA VICTORIA@[facility] 03/25/2025 Procedure Pass [facility] PERI[facility]IVE DEPT [address] [place] [phone] 03/25/2025 7:30 AM EDT Hospital Encounter [facility]PT [address] [place] [phone] Aleshia Leonard MD [address] [place] [address] MARIA VICTORIA@[facility] 03/25/2025 7:30 AM EDT - 03/25/2025 1:21 PM EDT Surgery [facility] PERI[facility]IVE DEPT [address] [place] [phone] Aleshia Leonard MD [address] [place] [address] MARIA VICTORIA@[facility] AscAoAneurysm Graft Replacement 05/03/2025 1:30 PM EST Office [place] [address] Bryn Dominguez MD [address] [place] [address] [email or web address] Scheduled Procedures Name Priority Associated Diagnoses [...] on filedocumented in this encounter Care Teams [place]ing Mill Supervisor Relationship Specialty Start Date End Date Carolina Madison MD [address] [place] [address] PCP - General Internal Medicine 12/10/24 Aleshia Leonard MD [address] [place] [address] MARIA VICTORIA@[email or web address] Thoracic Surgery 01/26/25 Bryn Dominguez MD [address] [place] [address] [email or web address] Cardiology 02/25/25 documented as of this encounter Additional Source Comments The information contained in this document represents components of the legal health record. It is not the complete legal health record.[facility]
--- OUTSIDE RECORDS SUMMARY | 2025-03-10 14:36 | XMS_ITS | Encounter Summary ---
Author Organization [facility] Address [address] [facility] [address] [place] [address] Phone Care Team Providers Care Edi Analyst Name Role Phone Carolina Madison MD Primary Care Provider [phone] Aleshia Leonard MD Unavailable [phone] Bryn Dominguez MD Unavailabl e Encounter Details Date Type Department Care Team (Late st Contact Info) Description 12/22/2024 Procedure Pass [facility] Cardiology Referral Images [address] [place] [address] Social History Tobacco Use Types Packs/Day Years [...] Description 03/12/2025 1:00 PM EDT Pre-Admission Testing [facility] Division of Cardiac Surgery [address] [facility], 6th Floor, [address] [place] [address] Aleshia Leonard MD [address] [place] [address] MARIA VICTORIA@[facility] 03/12/2025 2:15 PM EDT Appointment [facility] Pulmonary and Critical Care Unit [address] [place] [address], 2nd Floor, [address] [place] [address] Aleshia Leonard MD [address] [place] [address] MARIA VICTORIA@[facility] 03/25/2025 Procedure Pass [facility] PERIOPERATIVE DEPT [address] [place] [phone] 03/25/2025 7:30 AM EDT Hospital Encounter [facility] PERIOPERATIVE DEPT [address] [place] [phone] Aleshia Leonard MD [address] [place] [address] MARIA VICTORIA@[facility] 03/25/2025 7:30 AM EDT - 03/25/2025 1:21 PM EDT Surgery [facility] PERIOPERATIVE DEPT [address] [place] [phone] Aleshia Leonard MD [address] [place] [phone] MARIA VICTORIA@[facility] AscAoAneurysm Graft Replacement 05/03/2025 1:30 PM EST Office Visit [facility] Cardiology [address] [place] [address] Bryn Dominguez MD [address] [place] [address] [email or web address] Scheduled [...] on filedocumented in this encounter Care Teams Edi Analyst Relationship Specialty Start Date End Date Carolina Madison MD [address] [facility] [place] [address] PCP - General Internal Medicine 12/10/24 Aleshia Leonard MD [address] [place] [address] MARIA VICTORIA@[email or web address] Thoracic Surgery 01/26/25 Bryn Dominguez MD [address] [place] [address] [email or web address] Cardiology 02/25/25 documented as of this encounter Additional Source Comments The information contained in this document represents components of the legal health record. It is not the complete legal health record.[facility]
--- OUTSIDE RECORDS SUMMARY | 2025-03-10 14:36 | XMS_ITS | Clinical Summary ---
Author Organization [facility] Address [address] [place] [address] Care Team Providers Care Paralegal Specialist Name Role Phone Josias Rivers MD Primary Care Provider [phone] Source Comments PLEASE NOTE, if this patient [...] of Treatment Not on file Care Teams Paralegal Specialist Relationship Specialty Start Date End Date Josias Rivers MD [address] [place] [phone] PCP - General Internal Medicine 04/26/15
--- OUTSIDE RECORDS SUMMARY | 2025-03-10 14:36 | XMS_ITS | Clinical Summary ---
Author Organization [facility] Address [address] [facility] [address] [place] [address] Phone Care Team Providers Care Coil Winder Name Role Phone Carolina Madison MD Primary Care Provider [phone] Aleshia Leonard MD Unavailable [phone] Bryn Dominguez MD Unavailabl e Allergies Active [...] Department Care Team Description 03/08/2025 Orders Only [facility] [place] of [place]iac Surgery [address] [facility], 6th Floor, [address] [place] [address] Olivier Tate FNP SOB (shortness of breath) (Primary Dx) 02/25/2025 Documentation [facility] of Cardiac Surgery [address] [facility], 6th Floor, [address] [place] [address] Olivier Tate FNP 02/22/2025 Telephone [facility] [place] of [place]iac Surgery [address] [facility], 6th Floor, [address] [place] [address] Aleshia Leonard MD 02/17/2025 9:38 PM EDT - 02/17/2025 11:59 PM EDT Hospital Encounter [facility] Imaging - MRI, [address] [place] [address] [place] [address] Bryn Dominguez MD Discharge Disposition: Home or Self Care 02/16/2025 1:45 PM EDT Office Visit [facility] of Cardiac Surgery [address] [facility], 6th Floor, [address] [place] [address] Aleshia Leonard MD Aneurysm of ascending aorta without rupture (Primary Dx) 02/12/2025 1:20 PM EDT Office Visit [facility] Cardiology Referral Images [address] [facility] [address] [place] [address] [facility] [place], Provider 02/12/2025 1:15 PM EDT Office Visit [facility] Cardiology Referral Images [address] [address] [facility] [place], Provider Diagnosis unknown 02/12/2025 1:10 PM EDT Office Visit [facility] Cardiology Referral Images [address] [facility] [address] [place] [address] [facility] [place], Provider Diagnosis unknown 02/12/2025 Procedure Pass [facility] Cardiology Referral Images [address] [facility] [address] [place] [address] 02/12/2025 Procedure Pass [facility] Cardiology Referral Images [address] [facility] [address] [place] [address] 02/12/2025 Orders Only [facility] Cardiovascular Medicine [address] [facility], 5th Floor, [address] [place] [address] Unknown, Jose J, Diagnosis unknown (Primary Dx) 02/12/2025 Documentation [facility] Division of Cardiac Surgery [address] [facility], 6th Floor, [address] [place] [address] Olivier Tate, SEX OFFENDER TREATMENT PROFESSIONAL 02/10/2025 Ancillary Orders [facility] [address] [place] [address] Aleshia Leonard MD 02/09/2025 11:55 AM EDT - 02/09/2025 12:39 PM EDT Surgery [facility] Endoscopy [address] [place] [address] Anastacio Yuen MD TRANSESOPHAGEAL ECHOCARDIOGRAM 02/09/2025 11:39 AM EDT Anesthesia Event [facility] Endoscopy [address] [place] [address] Candido Pryor MD Allen, George Kenton, MD 02/09/2025 9:35 AM EDT - 02/09/2025 11:59 PM EDT Hospital Encounter [facility] Cath/EP Lab [address] [place] [address] Bryn Dominguez MD Discharge Disposition: Home or Self Care 02/09/2025 8:00 AM EDT - 02/09/2025 9:30 AM EDT Surgery [facility] Cath/EP Lab [address] [place] [address] Bryn Dominguez MD Right and Left Heart Catheterization with possible LVGRAM 02/09/2025 7:16 AM EDT - 02/09/2025 1:55 PM EDT Hospital Encounter [facility] Endoscopy [address] [place] [address] Bryn Dominguez MD Discharge Disposition: Home or Self Care 02/09/2025 Procedure Pass [facility] Endoscopy [address] [place] [address] 02/09/2025 Procedure Pass [facility] Cath/EP Lab [address] [place] [address] 01/25/2025 Telephone [facility] Cardiology [address] [place] [address] Vanessa Galicia, SEWER PIPE LAYER Referral 01/19/2025 Procedure Pass [facility] Imaging - MRI, [address] [place] [address] [place] [address] 01/19/2025 Procedure Pass [facility] Imaging - MRI, [address] [place] [address] [place] [address] 01/19/2025 Telephone [facility] Cardiology [address] [place] [address] Fallon Newberry, ALEXEY CTA of Aorta 01/19/2025 Documentation [facility] Cardiology Virtual Department [address] [place] [address] Bryn Dominguez MD 01/18/2025 1:00 PM EDT Office Visit [facility] Cardiology [address] [place] [address] Bryn Dominguez MD Aneurysm of ascending aorta without rupture (Primary Dx); Severe aortic regurgitation; Hypertensive disorder; Atrial fibrillation, unspecified type; On amiodarone therapy; Postoperative hypothyroidism; Stage 4 chronic kidney disease; Preoperative cardiovascular examination 01/18/2025 Procedure Pass [facility] Cath/EP Lab [address] [place] [address] 12/22/2024 10:20 AM EDT Office Visit [facility] Cardiology Referral Images [address] [facility] [address] [place] [address] [facility] Admitting, Provider Diagnosis unknown 12/22/2024 Telephone [facility] Division of Cardiac Surgery [address] [facility], 6th Floor, [address] [place] [address] Aleshia Leonard MD 12/22/2024 Ancillary Orders [facility] General Imaging [address] [place] [address] Aleshia Leonard MD 12/22/2024 Procedure Pass [facility] Cardiology Referral Images [address] [facility] [address] [place] [address] 12/22/2024 Transcribe Orders [facility] Cardiovascular Medicine [address] [facility], 5th Floor, [address] [place] [address] Unknown, MD Jose J Diagnosis unknown (Primary Dx) 12/10/2024 Transcribe Orders [facility] - Virtual Department [address] [place] [address] Carolina Madison MD from Last 3 Months [...] PM EDT Pre-Admission Testing [facility] Division of Cardiac Surgery [address] [facility], 6th Floor, [address] [place] [address] Aleshia Leonard MD [address] [place] [address] MARIA VICTORIA@[facility] 03/12/2025 2:15 PM EDT Appointment [facility] Pulmonary and Critical Care Unit [address] [facility], 2nd Floor, [address] [place] [address] Aleshia Leonard MD [address] [place] [address] MARIA VICTORIA@[facility] 03/25/2025 Procedure Pass [facility] PERIOPERATIVE DEPT [address] [place] [phone] 03/25/2025 7:30 AM EDT Hospital Encounter [facility] PERIOPERATIVE DEPT [address] [place] [phone] Aleshia Leonard MD [address] [place] [address] MARIA VICTORIA@[facility] 03/25/2025 7:30 AM EDT - 03/25/2025 1:21 PM EDT Surgery [facility] PERIOPERATIVE DEPT [address] [place] [phone] Aleshia Leonard MD [address] [place] [address] [place] [address], [place] [address] MARIA VICTORIA@[email or web address] [facility] AscAoAneurysm Graft Replacement 05/03/2025 1:30 PM EST Office Visit [facility] Cardiology [address] [place] [address] Bryn Dominguez MD 19 [facility], [facility] [place] [address] [email or web address] Scheduled Procedures Name Priority Associated [...] 02/09/2025 11:11 AM EDT Dysphagia, unspecified type VA ESOPHAGOGASTRODUODENOSCOP Y TRANSORAL DIAGNOSTIC 02/09/2025 11:11 AM [...] Outside Images for comparison purposes only. Provider [facility] Admitting CV CARDIAC CATH ORDERABLE S Final Result * Outside Echo Report Only (02/12/2025 1:08 PM EDT) Other Narrative SYSTEMGENERATED, DOCUMENTATION - 02/12/2025 1:08 PM EDT Outside Images for comparison purposes only. Provider [facility] Admitting CV ECHO ORDERABLES Final Result * Outside Echo Report Only (02/12/2025 1:08 PM EDT) Other Narrative SYSTEMGENERATED, DOCUMENTATION - 02/12/2025 1:08 PM EDT Outside Images for comparison purposes only. Provider [facility] Admitting CV ECHO ORDERABLES Final Result * [...] obtained by: Consent obtained with help of Albanian coin dealer as well as family members. Frannie Alves [...] Yuen MD - 02/09/2025 11:04 AM EDT [facility] Patient Name: Ingris [...] infection, need for surgery, blood transfusions (unless Advent),heart and respiratory complications amongst others. The endoscope [...] specimens collected. Recommendation: - Refer to a leadership intern as previously scheduled.The CB will be scheduled and endoscopy forcontinuation of her sedation for patient's convenience Anastacio Yuen MD 02/09/2025 11:53:27 AM This report has been signed electronically. Number of Addenda: 0 Estimated Blood Loss: Estimated blood loss: none. [address] [place] [phone] us Unknown Unknown GI PROCEDURE ORDERABLES Final [...] micropuncture kit. Sheath upsized to 7F sheath. [facility] catheter advanced and balloon inflated. Catheter passed [...] BPM [facility] Atrial Rate 48 BPM [facility] VA Interval 176 ms [facility] QRS Duration 94 ms [facility] QT Interval 528 ms [facility] QTC Interval 471 ms [facility] P [place] 48 degrees [facility] R Wave [place] -20 degrees [facility] T Wave [place] 12 degrees [facility] 02/09/2025 7:34 AM EDT 02/09/2025 8:28 AM EDT Narrative [facility] - 02/09/2025 8:28 AM EDT Sinus bradycardia Otherwise normal ECG When compared with ECG of 18-Jan-2025 13:05, VA interval has decreased Confirmed by Bryn Glez ([id number]) on 02/09/2025 8:28:42 AM Bryn Curran MD ECG ORDERAB LES Final Result [facility] * (ABNORMAL) CBC and differential (02/09/2025 7:30 AM EDT) Only the most recent of2 resultswithin the time period is included. WBC 6.40 4.00 - 11.00 K/uL [facility] RBC 3.97(L) 4.00 - 5.20 M/uL [facility] HGB 12.7 12.0 - 16.0 g/dL [facility] HCT 38.6 36.0 - 46.0 % [facility] PLT 246 150 - 450 K/uL [facility] MCV 97.2 80.0 - 100.0 fL [facility] MCH 32.0(H) 27.0 - 31.0 pg [facility] MCHC 32.9 32.0 - 36.0 g/dL [facility] RDW 13.0 11.5 - 14.5 % [facility] MPV 10.1 8.4 - 12.0 fL [facility] NRBC 0.00 0.00 /100 WBCs [facility] ABSOLUTE NRBC 0.00 0.00 K/uL [facility] DIFF METHOD [employer] [facility] [place] 60.5 48.0 - 76.0 % [facility] LYMPHS 25.6 18.0 - 41.0 % [facility] MONOS 11.1(H) 4.0 - 11.0 % [facility] EOS 1.7 0.0 - 5.0 % [facility] BASOS 0.9 0.0 - 1.5 % [facility] ABSOLUTE NEUTS 3.87 1.92 - 7.60 K/uL [facility] ABSOLUTE LYMPHS 1.64 0.72 - 4.10 K/uL [facility] ABSOLUTE MONOS 0.71 0.16 - 1.10 K/uL [facility] ABSOLUTE EOS 0.11 0.00 - 0.50 K/uL [facility] ABSOLUTE BASOS 0.06 0.00 - 0.15 K/uL [facility] % IMMATURE GRANS 0.2 0.0 - 0.9 % [facility] Comment:An increased IG of > 2% has been shown to be an early screen for acute infection. IG can also be elevated in severe inflammatory response, MDS, CMPN, etc. ABS IMMATURE GRANS 0.01 0.00 - 0.09 K/uL [facility] Blood 02/09/2025 7:30 AM EDT 02/09/2025 7:35 AM EDT us Bryn Curran MD LAB BLOOD [place] [address], [facility] [phone] * (ABNORMAL) Magnesium (02/09/2025 7:30 AM EDT) MAGNESIUM 2.8(H) 1.7 - 2.6 mg/dL [facility] Blood 02/09/2025 7:30 AM EDT 02/09/2025 7:35 AM EDT us Bryn Curran MD LAB BLOOD O RDERABLES Final Result Performing Organization Address City/[facility]/ZIP Co de Phone Number [address] [phone] * (ABNORMAL) Basic metabolic panel (02/09/2025 7:30 AM EDT) SODIUM 141 136 - 145 mmol/L [facility] CHLORIDE 103 98 - 107 mmol/L [facility] POTASSIUM 4.1 3.4 - 5.1 mmol/L [facility] CO2 25 20 - 31 mmol/L [facility] BUN 34(H) 6 - 23 mg/dL [facility] CREATININE 2.08(H) 0.5 - 1.0 mg/dL [facility] GLUCOSE 102(H) 70 - 100 mg/dL [facility] CALCIUM 9.5 8.5 - 10.5 mg/dL [facility] EGFR 24 mL/min/1.7 3m2 [facility] Comment:Estimated glomerular filtration rate calculated using the CKD-EPI refit equation. ANION GAP 13 3 - 17 mmol/L [facility] Blood 02/09/2025 7:30 AM EDT 02/09/2025 7:35 AM EDT us Bryn Curran MD LAB BLOOD O RDERABLES Final Result Performing Organization Address [facility]/ZIP Co de Phone Number [address] [phone] * (ABNORMAL) Lipid profile with direct LDL (01/18/2025 1:43 PM EDT) CHOLESTEROL 210(H) 0 - 200 mg/dL [facility] TRIGLYCERIDES 118 0 - 150 mg/dL [facility] HDL 66 40 - 80 mg/dL [facility] LDL Chol (Direct) 134(H) 0 - 130 mg/dL [facility] CARDIAC RISK RATIO 3.2 [facility] Blood 01/18/2025 1:43 PM EDT 01/18/2025 1:46 PM EDT us Bryn Curran MD LAB BLOOD O RDERABLES Final Result Performing Organization Address City/State/[facility] Co de Phone Number [address] [phone] * (ABNORMAL) Comprehensive metabolic panel (01/18/2025 1:43 PM EDT) SODIUM 143 136 - 145 mmol/L [facility] POTASSIUM 4.3 3.4 - 5.1 mmol/L [facility] CHLORIDE 104 98 - 107 mmol/L [facility] CO2 27 20 - 31 mmol/L [facility] BUN 33(H) 6 - 23 mg/dL [facility] CREATININE 2.08(H) 0.5 - 1.0 mg/dL [facility] GLUCOSE 89 70 - 100 mg/dL [facility] ALBUMIN 4.4 3.5 - 5.0 g/dL [facility] TOTAL PROTEIN 7.3 6.4 - 8.3 g/dL [facility] CALCIUM 9.2 8.5 - 10.5 mg/dL [facility] ALKALINE PHOSPHATASE 47 40 - 130 U/L [facility] TOTAL BILIRUBIN 0.4 0 - 1.2 mg/dL [facility] AST 13 0 - 33 U/L [facility] ALT 10 0 - 34 U/L [facility] EGFR 24 mL/min/1.7 3m2 [facility] Comment:Estimated glomerular filtration rate calculated using the CKD-EPI refit equation. ANION GAP 12 3 - 17 mmol/L [facility] Blood 01/18/2025 1:43 PM EDT 01/18/2025 1:46 PM EDT us Bryn Curran MD LAB BLOOD O RDERABLES Final Result [address] [phone] * TSH with reflex (01/18/2025 1:43 PM EDT) SCREENING PANEL: TSH 2.77 0.34 - 5.9 uIU/mL [facility] Blood 01/18/2025 1:43 PM EDT 01/18/2025 1:46 PM EDT us Bryn Curran MD LAB BLOOD O RDERABLES Final Result Performing Organization Address [facility]/ZIP Co de Phone Number [address] [phone] * NT-proBNP (01/18/2025 1:43 PM EDT) NT-PROBNP 628 0 - 1,800 pg/mL [facility] Blood 01/18/2025 1:43 PM EDT 01/18/2025 1:46 PM EDT us Bryn Curran MD LAB BLOOD O RDERABLES Final Result Performing Organization Address City/[facility]/ZIP Co de Phone Number [address] [phone] * Outside Echo Report Only (12/22/2024 10:16 AM EDT) Other Narrative SYSTEMGENERATED, DOCUMENTATION - 12/22/2024 10:16 AM EDT Outside Images for comparison purposes only. us Provider [facility] Admitting CV ECHO ORDERABLES Final Result * Outside Lab (12/21/2024) us Scanning Interface Provider LAB BLOOD ORDERABLES Final Result from Last 3 Months Insurance MEDICARE PART A & B MEDICARE PART A & B MEDICARE PART A & B MEDICARE PART A & B MEDICARE PART A & B Advance Directives For more information, please contact: [phone] (9AM - 5PM [facility], Saturday-Saturday) Documents on File Type Date Recorded Patient Silver Buffer Expl anation Advance Directive - Non Epic LMR 10/10/2009 12:00 AM Care Teams Coil Winder Relationship Specialty Start Date End Date Carolina Madison MD [address] [facility] [place] [address] PCP - General Internal Medicine 12/10/24 Aleshia Leonard MD [address] [place] [phone] MARIA [email or web address] Thoracic Surgery 01/26/25 Bryn Dominguez MD [address] [place] [address] [email or web address] Cardiology 02/25/25 Additional Source Comments The information contained in this document represents components of the legal health record. It is not the complete legal health record.[facility]
--- OUTSIDE RECORDS SUMMARY | 2025-03-10 14:36 | XMS_ITS | Encounter Summary ---
Author Organization [facility] Address [address] [facility] [address] [place] [address] Phone Care Team Providers Care Head Waiter/Waitress Name Role Phone Carolina Madison MD Primary Care Provider [phone] Aleshia Leonard MD Unavailable [phone] Bryn Dominguez MD Unavailabl e Encounter Details Date Type Department Care Team (Late st Contact Info) Description 12/22/2024 Telephone [facility] [place] of [place] Surgery [address] [facility], 6th [address], [address] [place] [address] Aleshia Leonard MD [address] [place] [address] [address] [place] [address] MARIA VICTORIA@[email or web address] Social History Tobacco Use Types Packs/Day Years [...] Description 03/12/2025 1:00 PM EDT Pre-Admission Testing [facility] Division of Cardiac Surgery [address] [facility], 6th Floor, [address] [place] [address] Aleshia Leonard MD [address] [place] [phone] MARIA VICTORIA@[facility] 03/12/2025 2:15 PM EDT Appointment [facility] Pulmonary and Critical Care Unit [address] [place] [address], 2nd Floor, [address] [place] [address] Aleshia Leonard MD [address] [place] [phone] MARIA VICTORIA@[facility] 03/25/2025 Procedure Pass [facility] [place] [address] [place] [phone] 03/25/2025 7:30 AM EDT Hospital Encounter [facility] [place] [address] [place] [phone] Aleshia Leonard MD [address] [place] [phone] MARIA VICTORIA@[facility] 03/25/2025 7:30 AM EDT - 03/25/2025 1:21 PM EDT Surgery [facility] [place] [address] [place] [phone] Aleshia Leonard MD [address] [place] [phone] MARIA VICTORIA@[facility] AscAoAneurysm Graft Replacement 05/03/2025 1:30 PM EST Office Visit P Cardiology [address] [place] [phone] Bryn Dominguez MD [address] [place] [phone] [email or web address] [...] on filedocumented in this encounter Care Teams Head Waiter/Waitress Relationship Specialty Start Date End Date Carolina Madison MD [address] [place] [address] PCP - General Internal Medicine 12/10/24 Aleshia Leonard MD [address] [place] [phone] MARIA VICTORIA@[email or web address] Thoracic Surgery 01/26/25 Bryn Dominguez MD [address] [facility], [facility] [place] [address] [email or web address] Cardiology 02/25/25 documented as of this encounter Additional Source Comments The information contained in this document represents components of the legal health record. It is not the complete legal health record.[facility]
== END 2025-03-10 11:29 | disposition home or self-care (01) ==
LOC: HO.LAB 11:28
PROVIDERS: Absent Provider Internal Medicine; PCP Internal Medicine; Visit Provider Internal Medicine Hypertension Specialist
DX: I12.9 Hypertensive chronic kidney disease with stage 1 through stage 4 chronic kidney disease, or unspecified chronic kidney disease (principal); N18.4 Chronic kidney disease, stage 4 (severe); G62.9 Polyneuropathy, unspecified
CPT/HCPCS: 36415; 80048; 81003; 82306; 82570; 82607; 82746; 84156; 84443; 85027

== ENCOUNTER 2025-03-20 10:30 | Outpatient (REF) | payer MEDICARE, SELFPAY ==
--- OUTSIDE RECORDS SUMMARY | 2025-03-20 10:33 | XMS_ITS | Encounter Summary ---
Author Organization [facility] Address [address] [facility] [address] [place] [address] Phone Care Team Providers Care Amr Physician Name Role Phone Carolina Madison MD Primary Care Provider [phone] Aleshia Leonard MD Unavailable [phone] Bryn Dominguez MD Unavailabl e Encounter Details Date Type Department Care Team (Late st Contact Info) Description 02/12/2025 Procedure Pass [facility] Cardiology Referral Images [address] [place] [address] Social History Tobacco Use Types Packs/Day Years [...] Care Team (Late st Contact Info) Description 03/25/2025 Procedure Pass [facility] PERIOPER[place]IVE DEPT [address] [place] [phone] 03/25/2025 7:30 AM EDT Hospital Encounter [facility] PERI[place]IVE DEPT [address] [place] [phone] Aleshia Leonard MD [address] [place] [phone] MARIA VICTORIA@[email or web address] 03/25/2025 7:30 AM EDT - 03/25/2025 6:42 PM EDT Surgery [facility] PERIOPER[place]IVE DEPT [address] [place] [phone] Aleshia Leonard MD [address] [place] [phone] MARIA VICTORIA@[facility] AscAoAneurysm Graft Replacement 05/03/2025 1:30 PM EST Office Visit [facility] Cardiology [address] [place] [address] Bryn Dominguez MD [address] [place] [phone] [email or web address] Scheduled Procedures Name Priority Associated Diagnoses Date/Ti [...] fibrillation, unspecified type 03/25/2025 7:30 AM EDT RECONSTRUCTION AORTIC VALVE Aortic valve insufficiency, etiology of cardiac valve disease unspecified Ascending aortic aneurysm, unspecified whether ruptured Atrial fibrillation, unspecified type 03/25/2025 7:30 AM EDT documented as of this encounter Visit Diagnoses Not on filedocumented in this encounter Care Teams Amr Physician Relationship Specialty Start Date End Date Carolina Madison MD [address] [place] [address] PCP - General Internal Medicine 12/10/24 Aleshia Leonard MD [address] [place] [address] MARIA [email or web address] Thoracic Surgery 01/26/25 Bryn Dominguez MD [address] [place] [address], [facility] [address] [place] [address] [email or web address] Cardiology 02/25/25 documented as of this encounter Additional Source Comments The information contained in this document represents components of the legal health record. It is not the complete legal health record.[facility]
--- OUTSIDE RECORDS SUMMARY | 2025-03-20 10:33 | XMS_ITS | Encounter Summary ---
Author Organization [facility] Address [address] [employer] [address] [place] [address] Phone Care Team Providers Care Aco Coordinator Name Role Phone Carolina Madison MD Primary Care Provider [phone] Aleshia Leonard MD Unavailable [phone] Bryn Dominguez MD Unavailabl e Encounter Details Date Type Department Care Team (Late st Contact Info) Description 02/09/2025 Procedure Pass [facility] Endoscopy [address] [place] [address] Social History Tobacco Use Types Packs/Day Years [...] st Contact Info) Description 03/25/2025 Procedure Pass [facility] [address] [place] [address] 03/25/2025 7:30 AM EDT Hospital Encounter [facility] [address] [place] [address] Aleshia Leonard MD [address] [place] [address] MARIA VICTORIA@[facility] 03/25/2025 7:30 AM EDT - 03/25/2025 6:42 PM EDT Surgery [facility] [address] [place] [phone] Aleshia Leonard MD [address] [place] [address] MARIA VICTORIA@[email or web address] AscAoAneurysm Graft Replacement 05/03/2025 1:30 PM EST Office Visit [facility] Cardiology [address] [place] [address] Bryn Dominguez MD [address] [place] [address] [place] [address] [email or web address] Scheduled Procedures Name Priority Associated Diagnoses [...] on filedocumented in this encounter Care Teams Aco Coordinator Relationship Specialty Start Date End Date Carolina Madison MD [address] [facility] [address] PCP - General Internal Medicine 12/10/24 Aleshia Leonard MD [address] [place] [address] MARIA VICTORIA@[facility] Thoracic Surgery 01/26/25 Bryn Dominguez MD [address] [place] [address], [place] [address] [email or web address] Cardiology 02/25/25 documented as of this encounter Additional Source Comments The information contained in this document represents components of the legal health record. It is not the complete legal health record.[facility]
--- OUTSIDE RECORDS SUMMARY | 2025-03-20 10:33 | XMS_ITS | Encounter Summary ---
Author Organization [facility] Address [address] [facility] [address] [place] [address] Phone Care Team Providers Care Trommel Tender Name Role Phone Carolina Madison MD Primary Care Provider [phone] Aleshia Leonard MD Unavailable [phone] Bryn Dominguez MD Unavailabl e Encounter Details Date Type Department Care Team (Late st Contact Info) Description 02/12/2025 Procedure Pass [facility] Cardiology Referral Images [address] [place] [address] Social History Tobacco Use Types Packs/Day Years [...] st Contact Info) Description 03/25/2025 Procedure Pass [facility] PERIOPERATIVE DEPT [address] [place] [phone] 03/25/2025 7:30 AM EDT Hospital Encounter [facility] PERIOPERATIVE DEPT [address] [place] [phone] Aleshia Leonard MD [address] [place] [address] MARIA VICTORIA@[facility] 03/25/2025 7:30 AM EDT - 03/25/2025 6:42 PM EDT Surgery [facility] PERIOPERATIVE DEPT [address] [place] [phone] Aleshia Leoanrd MD [address] [place] [address] MARIA VICTORIA@[facility] AscAoAneurysm Graft Replacement 05/03/2025 1:30 PM EST Office Visit [facility] Cardiology [address] [place] [address] Bryn Dominguez MD [address] [place] [address] [email or web address] Scheduled Procedures Name Priority Associated Diagnoses [...] on filedocumented in this encounter Care Teams Trommel Tender Relationship Specialty Start Date End Date Carolina Madison MD [address] [facility] [place] [address] PCP - General Internal Medicine 12/10/24 Aleshia Leonard MD [address] [place] [address] MARIA VICTORIA@[email or web address] Thoracic Surgery 01/26/25 Bryn Dominguez MD [address] [place] [address], [place] [address] [email or web address] Cardiology 02/25/25 documented as of this encounter Additional Source Comments The information contained in this document represents components of the legal health record. It is not the complete legal health record.[facility]
--- OUTSIDE RECORDS SUMMARY | 2025-03-20 10:33 | XMS_ITS | Encounter Summary ---
Author Organization [facility] Address [address] [facility] [address] [place] [address] Phone Care Team Providers Care Irrigation Equipment Remover Name Role Phone Carolina Madison MD Primary Care Provider [phone] Aleshia Leonard MD Unavailable [phone] Bryn Dominguez MD Unavailabl e Encounter Details Date Type Department Care Team (Late st Contact Info) Description 12/22/2024 Telephone [facility] Division of Cardiac Surgery [address]th [address], [address] [place] [address] Aleshia Leonard MD [address] [place] [address] [address] [place] [address] MARIA VICTORIA@[facility] Social History Tobacco Use Types Packs/Day Years [...] st Contact Info) Description 03/25/2025 Procedure Pass [facility] [address] [place] [address] 03/25/2025 7:30 AM EDT Hospital Encounter [facility] [address] [place] [address] Aleshia Leonard MD [address] [address] MARIA VICTORIA@[facility] 03/25/2025 7:30 AM EDT - 03/25/2025 6:42 PM EDT Surgery [facility]PT [address] [place] [address] Aleshia Leonard MD [address] [address] MARIA VICTORIA@[facility] AscAoAneurysm Graft Replacement 05/03/2025 1:30 PM EST Office Visit [facility] Cardiology [address] [place] [address] Bryn Dominguez MD [address] [place] [address] [email or web address] Scheduled Procedures Name Priority Associated Diagnoses Date/Ti [...] on filedocumented in this encounter Care Teams Irrigation Equipment Remover Relationship Specialty Start Date End Date Carolina Madison MD [address] [facility] [place] [address] PCP - General Internal Medicine 12/10/24 Aleshia Leonard MD [address] [place] [address] MARIA VICTORIA@[facility] Thoracic Surgery 01/26/25 Bryn Dominguez MD [address] [place] [address], [place] [address] [email or web address] Cardiology 02/25/25 documented as of this encounter Additional Source Comments The information contained in this document represents components of the legal health record. It is not the complete legal health record.[facility]
--- OUTSIDE RECORDS SUMMARY | 2025-03-20 10:33 | XMS_ITS | Encounter Summary ---
Author Organization [facility] Address [address] [place] [address] [place] [address] Phone Care Team Providers Care Bakery Helper Name Role Phone Carolina Madison MD Primary Care Provider [phone] Aleshia Leonard MD Unavailable [phone] Bryn Dominguez MD Unavailabl e Encounter Details Date Type Department Care Team (Late st Contact Info) Description 01/19/2025 Procedure Pass [facility] Imaging - MRI, Main [place] [address] [id number] Social History Tobacco Use Types Packs/Day Years [...] st Contact Info) Description 03/25/2025 Procedure Pass [facility] [address] [place] [address] 03/25/2025 7:30 AM EDT Hospital Encounter [facility] [address] [place] [address] Aleshia Leonard MD [address] [place] [address] MARIA VICTORIA@[email or web address] 03/25/2025 7:30 AM EDT - 03/25/2025 6:42 PM EDT Surgery [facility] [address] [place] [address] Aleshia Leonard MD [address] [place] [address] MARIA VICTORIA@[facility] AscAoAneurysm Graft Replacement 05/03/2025 1:30 PM EST Office Visit [facility] Cardiology [address] [place] [address] Bryn Dominguez MD [address] [place] [address] [email or web address] [place] [place] Scheduled Procedures Name Priority Associated Diagnoses Date/Ti [...] on filedocumented in this encounter Care Teams Bakery Helper Relationship Specialty Start Date End Date Carolian Madison MD [address] [facility] [place] [address] PCP - General Internal Medicine 12/10/24 Aleshia Leonard MD [address] [place] [address] MARIA VICTORIA@[email or web address] Thoracic Surgery 01/26/25 Bryn Dominguez MD [address] [place] [address], [facility] [place] [address] [email or web address] Cardiology 02/25/25 documented as of this encounter Additional Source Comments The information contained in this document represents components of the legal health record. It is not the complete legal health record.[facility]
--- OUTSIDE RECORDS SUMMARY | 2025-03-20 10:33 | XMS_ITS | Clinical Summary ---
Author Organization [facility] Address [address] [place] [address] Care Team Providers Care Blacksmith Hammer Operator Name Role Phone Nicolette Wilson DO Primary Care Provider [phone] Allergies No known active allergies Medications Medication [...] Mother Relation Name Status Comments Brother Father CA, CVD Maternal Cousin Breast Cance r Maternal [...] age to complete this topic Care Teams Blacksmith Hammer Operator Relationship Specialty Start Date End Date Nicolette Wilson DO PCP - General Family Medicine 07/16/17
--- OUTSIDE RECORDS SUMMARY | 2025-03-20 10:33 | XMS_ITS | Clinical Summary ---
Author Organization [facility] Address [address] [place] [address] Phone Care Team Providers Care Business Intelligence Developer Name Role Phone Wisam Taylor MD Primary Care Provider [phone] Allergies No known active allergies Medications amLODIPine-olme [...] day. 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 [address] [facility] [address] [place] [address] Hanna Jordan PA Gastroesophageal reflux disease without [...] Upcoming Encounters Date Type Department Care Team ([facility] st Contact Info) Description 03/24/2025 9:50 AM EDT Office Visit [facility] - [place] [address] [facility] [address] [place] [phone] Hanna Jordan PA [address] [place] [address] Health Maintenance Due Date Last Done Comments COVID-19 Vaccine (#1) 1950 Zoster Vaccines (1 of 2) 1964 Pneumococcal Vaccine: 50+ Years (3 of 3 - PCV20 or PCV21) 11/16/2017 09/21/2017, 06/07/2006 RSV [...] complete this topic Insurance MEDICARE Care Teams Business Intelligence Developer Relationship Specialty Start Date End Date Wisam Taylor MD [address] [place] [phone] PCP - General Internal Medicine 09/11/12
--- OUTSIDE RECORDS SUMMARY | 2025-03-20 10:33 | XMS_ITS | Encounter Summary ---
Author Organization [facility] Address [address] [place] [address] [place] [address] Phone Care Team Providers Care Steeping Press Tender Name Role Phone Carolina Madison MD Primary Care Provider [phone] Aleshia Leonard MD Unavailable [phone] Bryn Dominguez MD Unavailabl e Encounter Details Date Type Department Care Team (Late st Contact Info) Description 01/19/2025 Procedure Pass [facility] Imaging - MRI, Main [place] [address] [phone] Social History Tobacco Use Types Packs/Day Years [...] st Contact Info) Description 03/25/2025 Procedure Pass [facility] [address] [place] [address] 03/25/2025 7:30 AM EDT Hospital Encounter [facility] [address] [place] [address] Aleshia Leonard MD [address] [place] [address] MARIA VICTORIA@[email or web address] 03/25/2025 7:30 AM EDT - 03/25/2025 6:42 PM EDT Surgery [facility] [address] [place] [address] Aleshia Leonard MD [address] [place] [address] MARIA VICTORIA@[facility] AscAoAneurysm Graft Replacement 05/03/2025 1:30 PM EST Office Visit [facility] Cardiology [address] [place] [address] Bryn Dominguez MD 19 [place] [address] [email or web address] Scheduled Procedures Name Priority Associated Diagnoses Date/Ti [...] on filedocumented in this encounter Care Teams Steeping Press Tender Relationship Specialty Start Date End Date Carolina Madison MD [address] [facility] [place] [address] PCP - General Internal Medicine 12/10/24 Aleshia Leonard MD [address] [place] [address] MARIA VICTORIA@[facility] Thoracic Surgery 01/26/25 Bryn Dominguez MD [address] [place] [address], [facility] [place] [address] [email or web address] Cardiology 02/25/25 documented as of this encounter Additional Source Comments The information contained in this document represents components of the legal health record. It is not the complete legal health record.[facility]
--- OUTSIDE RECORDS SUMMARY | 2025-03-20 10:33 | XMS_ITS | Encounter Summary ---
Author Organization [facility] Address [address] [place] [address] Phone Care Team Providers Care Liquor Bridge Operator Name Role Phone Carolina Madison MD Primary Care Provider [phone] Aleshia Leonard MD Unavailable Bryn Dominguez MD Unavailabl e Encounter Details Date Type Department Care Team (Late Contact Info) Description 12/22/2024 Procedure Pass [facility] Cardiology Referral Images [address] [place] [address] Social History Tobacco Use Types Packs/Day Years [...] Encounters Date Type Department Care Team (Late Contact Info) Description 03/25/2025 Procedure Pass [facility] PERI[facility]PT [address] [place] [address] 03/25/2025 7:30 AM EDT Hospital Encounter [facility]PT [address] [place] [address] Aleshia Leonard MD [address] [address] MARIA VICTORIA@[facility] 03/25/2025 7:30 AM EDT - 03/25/2025 6:42 PM EDT Surgery [facility] PERIOPER[facility]IVE DEPT [address] [place] [address] Aleshia Leonard MD [address] [address] MARIA VICTORIA@[facility] AscAoAneurysm Graft Replacement 05/03/2025 1:30 PM EST Office Visit [facility] Cardiology 19 [place] [address] Bryn Dominguez MD 19 [place] [address] [email or web address] Scheduled Procedures Name Priority Associated Diagnoses Date/Ti [...] on filedocumented in this encounter Care Teams Liquor Bridge Operator Relationship Specialty Start Date End Date Carolina Madison MD [address] [place] [address] PCP - General Internal Medicine 12/10/24 Aleshia Leonard MD [address] [place] [address] MARIA VICTORIA@[facility] Thoracic Surgery 01/26/25 Bryn Dominguez MD [address] [place] [address] [email or web address] Cardiology 02/25/25 documented as of this encounter Additional Source Comments The information contained in this document represents components of the legal health record. It is not the complete legal health record.[facility]
--- OUTSIDE RECORDS SUMMARY | 2025-03-20 10:33 | XMS_ITS | Encounter Summary ---
Author Organization [facility] Address [address] [facility] [address] [place] [address] Phone Care Team Providers Care Supervisor Refining Name Role Phone Carolina Madison MD Primary Care Provider [phone] Aleshia Leonard MD Unavailable [phone] Bryn Dominguez MD Unavailabl e Encounter Details Date Type Department Care Team (Late st Contact Info) Description 02/09/[address] [facility] Cath/EP Lab [address] [place] [address] Social History Tobacco Use Types Packs/Day Years [...] st Contact Info) Description 03/25/2025 Procedure Pass [facility] [address] [place] [phone] 03/25/2025 7:30 AM EDT Hospital Encounter [facility] [address] [place] [phone] Aleshia Leonard MD [address] [place] [address] MARIA VICTORIA@[facility] 03/25/2025 7:30 AM EDT - 03/25/2025 6:42 PM EDT Surgery [facility] [address] [place] [phone] Aleshia Leonard MD [address] [place] [address] MARIA VICTORIA@[facility] AscAoAneurysm Graft Replacement 05/03/2025 1:30 PM EST Office Visit [facility] Cardiology [address] [place] [address] Bryn Dominguez MD [address] [place] [address] [email or web address] Scheduled Procedures Name Priority Associated Diagnoses [...] filedocumented in this encounter Care Teams Supervisor Refining Relationship Specialty Start Date End Date Carolina Madison MD [address] [facility] [place] [address] PCP - General Internal Medicine 12/10/24 Aleshia Leonard MD [address] [place] [address] MARIA VICTORIA@[email or web address] Thoracic Surgery 01/26/25 Bryn Dominguez MD [address] [place] [address], [facility] [place] [address] [email or web address] Cardiology 02/25/25 documented as of this encounter Additional Source Comments The information contained in this document represents components of the legal health record. It is not the complete legal health record.[facility]
--- OUTSIDE RECORDS SUMMARY | 2025-03-20 10:33 | XMS_ITS | Encounter Summary ---
Author Organization [facility] Address [address] [facility] [address] [place] [address] Phone Care Team Providers Care Team Leader/Research Psychologist Name Role Phone Carolina Madison MD Primary Care Provider [phone] Aleshia Leonard MD Unavailable Bryn Dominguez MD Unavailabl e Encounter Details Date Type Department Care Team (Late st Contact Info) Description 03/12/2025 Orders Only [facility] EKG LAB VIRTUAL DEPARTMENT [address] [place] [phone] Tasneem Cuevas [address] [place] [phone] [email or web address] Preop cardiovascular exam Social History Tobacco Use Types Packs/Day Years [...] st Contact Info) Description 03/25/2025 Procedure Pass [facility] PERIOPERATIVE DEPT [address] [place] [phone] 03/25/2025 7:30 AM EDT Hospital Encounter [facility] PERIOPERATIVE DEPT [address] [place] [phone] Aleshia Leonard MD [address] [place] [address] MARIA VICTORIA@[facility] 03/25/2025 7:30 AM EDT - 03/25/2025 6:42 PM EDT Surgery [facility] PERIOPERATIVE DEPT [address] [place] [phone] Aleshia Leonard MD [address] [place] [address] MARIA VICTORIA@[facility] AscAoAneurysm Graft Replacement 05/03/2025 1:30 PM EST Office [place] [address] Bryn Dominguez MD 19 [facility], [facility] [place] [address] [email or web address] Scheduled Procedures Name Priority [...] AM EDT documented as of this encounter Procedures Procedure Name Priority Date/Time Associated Diagnosis Comments ECG 12-LEAD Routine 03/12/2025 4:03 PM EDT Preop cardiovascular exam documented in this encounter Results * ECG 12-LEAD (03/12/2025 4:03 PM EDT) Systolic Blood Pressure [facility] Diastolic Blood Pressure [facility] Ventricular Rate EKG/MIN 51 BPM [facility] Atrial Rate 51 BPM [facility] AL Interval 200 ms [facility] QRS Duration 102 ms [facility] QT Interval 512 ms [facility] QTC Interval 471 ms [facility] P [place] 32 degrees [facility] R Wave [place] -15 degrees [facility] T Wave [place] 9 degrees [facility] 03/12/2025 4:03 PM EDT 03/16/2025 12:09 AM EDT Narrative [facility] - 03/16/2025 12:09 AM EDT LOC: [facility] - CADIAC SURG DX: PRE-OP REF: IDA SWEETIE - DIRECTOR OF EXHIBIT DEVELOPMENT SINUS BRADYCARDIA POOR R WAVE PROGRESSION NO PREVIOUS ECGS AVAILABLE us Ida Tate DIRECTOR OF EXHIBIT DEVELOPMENT ECG ORDERABLES Final Result [facility] documented in this encounter Visit Diagnoses Diagnosis Preop cardiovascular exam Pre-operative cardiovascular examination Aortic valve insufficiency, etiology of cardiac valve disease unspecified Ascending aortic aneurysm, unspecified whether ruptured Atrial fibrillation, unspecified type documented in this encounter Care Teams Team Leader/Research Psychologist Relationship Specialty Start Date End Date Carolina Madison MD [address] [facility] [place] [address] PCP - General Internal Medicine 12/10/24 Aleshia Leonard MD [address] [place] [address] MARIA VICTORIA@[facility] Thoracic Surgery 01/26/25 Bryn Dominguez MD 19 [place] [address] [email or web address] Cardiology 02/25/25 documented as of this encounter Additional Source Comments The information contained in this document represents components of the legal health record. It is not the complete legal health record.[facility]
--- OUTSIDE RECORDS SUMMARY | 2025-03-20 10:33 | XMS_ITS | Encounter Summary ---
Author Organization [facility] Address [address] [facility] [address] [place] [phone] Phone Care Team Providers Care Quantity Surveyor Name Role Phone Carolina Madison MD Primary Care Provider [phone] Aleshia Leonrad MD Unavailable [phone] Bryn Dominguez MD Unavailabl e Encounter Details Date Type Department Care Team (Late st Contact Info) Description 01/18/[address] [facility] Cath/EP Lab [address] [place] [address] Social History Tobacco Use Types Packs/Day Years [...] st Contact Info) Description 03/25/2025 Procedure Pass [facility] PERIOPERATIVE DEPT [address] [place] [address] 03/25/2025 7:30 AM EDT Hospital Encounter [facility] PERIOPERATIVE DEPT [address] [place] [address] Aleshia Leonard MD [address] [address] MARIA [email or web address] 03/25/2025 7:30 AM EDT - 03/25/2025 6:42 PM EDT Surgery [facility] PERIOPERATIVE DEPT [address] [place] [address] Aleshia Leonard MD [address] [address] MARIA [email or web address] Graft Replacement 05/03/2025 1:30 PM EST Office Visit [facility] Cardiology [address] [place] [address] Bryn Dominguez MD [address] [place] [address] [email or web address] Scheduled Procedures Name Priority Associated [...] on filedocumented in this encounter Care Teams Quantity Surveyor Relationship Specialty Start Date End Date Carolina Madison MD [address] [facility] [address] PCP - General Internal Medicine 12/10/24 Aleshia Leonard MD [address] [place] [id number] MARIA [email or web address] Thoracic Surgery 01/26/25 Bryn Dominguez MD [address] [place] [address] [place] [address] [email or web address] Cardiology 02/25/25 documented as of this encounter Additional Source Comments The information contained in this document represents components of the legal health record. It is not the complete legal health record.[facility]
--- OUTSIDE RECORDS SUMMARY | 2025-03-20 10:34 | XMS_ITS | Clinical Summary ---
Author Organization [facility] Address [address] [facility] [address] [place] [address] Phone Care Team Providers Care Country Printer Apprentice Name Role Phone Carolina Madison MD Primary Care Provider [phone] Aleshia Leonard MD Unavailable [phone] Bryn Dominguez MD Unavailabl e Allergies Active Allergy Reactions Criticality Noted Date Comments Spice Flavor GI Upset 02/16/2025 Medications amiodarone (PACERONE) 200 MG tablet Take 200 mg by mouth daily. Active amLODIPine-olmes berta (ALEXIS) 10-20 mg per tablet Take 1 tablet by [...] Encounters Date Type Department Care Team Description 03/12/2025 3:49 PM EDT - 03/12/2025 11:59 PM EDT Hospital Encounter [facility] - Emmanuel Berger 2 [address] [facility], 2nd [place] [address] Olivier Tate FNP Discharge Disposition: Home or Self Care 03/12/2025 3:29 PM EDT - 03/12/2025 3:48 PM EDT Hospital Encounter [facility] [address] [place], [place] [address]CC-2 [place] [address] Aleshia Leonard MD Discharge Disposition: Home or Self Care 03/12/2025 2:15 PM EDT - 03/12/2025 3:28 PM EDT Hospital Encounter [facility] [address] [place] [address], 2nd Floor, [address] [place] [address] Aleshia Leonard MD Discharge Disposition: Home or Self Care 03/12/2025 1:00 PM EDT Pre-Admission Testing [facility] [address] [place] [address], 6th Floor, [address] [place] [address] Aleshia Leonard MD Preop cardiovascular exam (Primary Dx); Abnormal finding of blood chemistry, unspecified 03/12/2025 Orders Only [facility] VIRTUAL DEPARTMENT [address] [place] [address] Tasneem Cuevas Preop cardiovascular exam 03/08/2025 Orders Only [facility] [address] [place] [address], 6th Floor, [address] [place] [address] Olivier Tate FNP SOB (shortness of breath) (Primary Dx) 02/25/2025 Documentation [facility] [address] [place] [address], 6th Floor, [address] [place] [address] Olivier Tate FNP 02/22/2025 Telephone [facility] [address] [place] [address], 6th Floor, [address] [place] [address] Aleshia Leonard MD 02/17/2025 9:38 PM EDT - 02/17/2025 11:59 PM EDT Hospital Encounter [facility] - MRI, [address] [address] [place] [address] Bryn Dominguez MD Discharge Disposition: Home or Self Care 02/16/2025 1:45 PM EDT Office Visit [facility] [address] [facility], 6th Floor, [address] [place] [address] Aleshia Leonard MD Aneurysm of ascending aorta without rupture (Primary Dx) 02/12/2025 1:20 PM EDT Office Visit [facility] [address] [facility] [address] [place] [address] [facility] Admitting, Provider 02/12/2025 1:15 PM EDT Office Visit [facility] [address] [facility] [address] [place] [address] [facility] Admitting, Provider Diagnosis unknown 02/12/2025 1:10 PM EDT Office Visit [facility] [address] [facility] [address] [place] [address] [facility] Admitting, Provider Diagnosis unknown 02/12/2025 Procedure Pass [facility] [address] [facility] [address] [place] [address] 02/12/2025 Procedure Pass [facility] [address] [facility] [address] [place] [address] 02/12/2025 Orders Only [facility] [address] [facility], 5th Floor, [address] [place] [address] Unknown, Jose J, Diagnosis unknown (Primary Dx) 02/12/2025 Documentation [facility] [address] [facility], 6th Floor, [address] [place] [address] Olivier Tate FNP 02/10/2025 Ancillary Orders [facility] [address] [place] [address] Aleshia Leonard MD 02/09/2025 11:55 AM EDT - 02/09/2025 12:39 PM EDT Surgery [facility] Endoscopy [address] [place] [address] Anastacio Yuen MD TRANSESOPHAGEAL ECHOCARDIOGRAM 02/09/2025 11:39 AM EDT Anesthesia Event [facility] Endoscopy [address] [place] [address] Candido Pryor MD Allen, King Limon MD 02/09/2025 9:35 AM EDT - 02/09/2025 11:59 PM EDT Hospital Encounter [facility] Cath/EP Lab [address] [place] [address] Bryn Dominguez MD Discharge Disposition: Home or Self Care 02/09/2025 8:00 AM EDT - 02/09/2025 9:30 AM EDT Surgery [facility] Cath/EP Lab [address] [place] [address] Bryn Dominguez MD Right and Left Heart Catheterization with possible LVGRAM 02/09/2025 7:16 AM EDT - 02/09/2025 1:55 PM EDT Hospital Encounter [facility] Endoscopy [address] [place] [address] Bryn Dominguez MD Discharge Disposition: Home or Self Care 02/09/2025 Procedure Pass [facility] Endoscopy [address] [place] [address] 02/09/2025 Procedure Pass [facility] Cath/EP Lab [address] [place] [address] 01/25/2025 Telephone [facility] [address] [facility] [place] [address] Vanessa Galicia LPN Referral 01/19/2025 Procedure Pass [facility] - MRI, [address] [place] [address] [place] [address] 01/19/2025 Procedure Pass [facility], [address] [address] [place] [address] 01/19/2025 Telephone [facility] [address] [facility] [place] [address] Fallon Newberry RN CTA of Aorta 01/19/2025 Documentation [facility] Cardiology Virtual Department [address] [place] [address] Bryn Dominguez MD 01/18/2025 1:00 PM EDT Office Visit [facility] [address] [place] [address] Bryn Dominguez MD Aneurysm of ascending aorta without rupture (Primary Dx); Severe aortic regurgitation; Hypertensive disorder; Atrial fibrillation, unspecified type; On amiodarone therapy; Postoperative hypothyroidism; Stage 4 chronic kidney disease; Preoperative cardiovascular examination 01/18/2025 Procedure Pass [facility] Cath/EP Lab [address] [place] [address] 12/22/2024 10:20 AM EDT Office Visit [facility] [address] [facility] [address] [place] [address] [facility] Admitting, Provider Diagnosis unknown 12/22/2024 Telephone [facility] [address] [facility], 6th Floor, [address] [place] [address] Aleshia Leonard MD 12/22/2024 Ancillary Orders [facility] General Imaging [address] [place] [address] Aleshia Leonard MD 12/22/2024 Procedure Pass [facility] [address] [facility] [address] [place] [address] 12/22/2024 Transcribe Orders [facility] [address] [facility], 5th Floor, [address] [place] [address] Unknown, Jose J, Diagnosis unknown (Primary Dx) from Last 3 Months Family History Medical [...] Pressure 152/67 02/16/2025 2:58 PM EDT Pulse 53 03/12/2025 4:07 PM EDT Temperature 36.4 C (97.6 F) 03/12/2025 4:07 PM EDT Respiratory Rate 18 03/12/2025 4:07 PM EDT Oxygen Saturation 94% 03/12/2025 4:07 PM EDT Inhaled Oxygen Concentration - - Weight 77.5 kg (170 lb 12.8 oz) 03/12/2025 4:07 PM EDT Height 157.5 cm (5' 2 ) 03/12/2025 4:07 PM EDT Body Mass Index 31.24 03/12/2025 4:07 PM EDT Plan of Treatment Upcoming Encounters Date Type Department Care Team (Late st Contact Info) Description 03/25/2025 Procedure Pass [facility] [address] [place] [address] 03/25/2025 7:30 AM EDT Hospital Encounter [facility] [address] [place] [address] Aleshia Leonard MD [address] [address] [email or web address] 03/25/2025 7:30 AM EDT - 03/25/2025 6:42 PM EDT Surgery [facility] [address] [place] [address] Aleshia Leonard MD [address] [address] [email or web address] Graft Replacement 05/03/2025 1:30 PM EST Office Visit [facility] Cardiology [address] [place] [address] Bryn Dominguez MD [address] [facility], [place] [address] [email or web address] Scheduled Procedures Name Priority Associated Diagnoses Date/Ti [...] VACCINES (1 of 2) 09/04/1995 OSTEOPOROSIS SCREENING INITIAL (ONE-TIME) 2010 PNEUMOCOCCAL VACCINES (50+ years) (2 of 2 - PPSV23) 11/16/2017 09/21/2017 RSV VACCINE (1 - 1-dose 75+ series) 2020 INFLUENZA VACCINE (#1) 2025 COVID-19 VACCINE ( season) 2025 BLOOD PRESSURE 08/16/2025 02/16/2025 LIPID PANEL 01/18/2026 01/18/2025 TSH LEVEL 01/18/2026 01/18/2025 ALT LEVEL (ALANINE AMINOTRANSFERASE) 03/12/2026 03/12/2025, 01/18/2025, 10/10/2009 CREATININE LEVEL 03/12/2026 03/12/2025, , 01/18/2025, Additional history exists POTASSIUM LEVEL 03/12/2026 03/12/2025, 01/16, 01/18/2025, Additional history exists SMOKING STATUS SCREENING (Once After 26 Yrs) Completed 02/16/2025 HEPATITIS A [...] 03/12/2025 4:03 PM EDT Preop cardiovascular exam XR CHEST PA AND LATERAL 2 VIEWS Routine 03/12/2025 3:56 PM EDT Preop cardiovascular exam ABO AND RH Routine 03/12/2025 3:46 PM EDT TYPE AND SCREEN (ABO,RH,ANTIBODY SCREEN) Routine 03/12/2025 3:46 PM EDT Preop cardiovascular exam CBC AND DIFFERENTIAL Routine 03/12/2025 3:46 PM EDT Preop cardiovascular exam COMPREHENSIVE METABOLIC PANEL Routine 3:46 PM EDT Preop cardiovascular exam MAGNESIUM Routine 03/12/2025 3:46 PM EDT Preop cardiovascular exam HEMOGLOBIN A1C Routine 03/12/2025 3:46 PM EDT Preop cardiovascular exam Abnormal finding of blood chemistry, unspecified PT-INR Routine 03/12/2025 3:46 PM EDT Preop cardiovascular exam PTT Routine 03/12/2025 3:46 PM EDT Preop cardiovascular exam MRSA/MSSA PRE-OP PCR Routine 03/12/2025 3:46 PM EDT Preop cardiovascular exam HC RESPIRATORY FLOW VOLUME LOOP Routine 03/12/2025 2:29 PM EDT SOB (shortness of breath) MRI ANGIO ABDOMEN (ABDOMINAL AORTA) WITHOUT CONTRAST [...] 02/09/2025 11:11 AM EDT Dysphagia, unspecified type CO ESOPHAGOGASTRODUODENOSCOP Y TRANSORAL DIAGNOSTIC 02/09/2025 11:11 AM [...] 12/21/2024 from Last 3 Months Results * ECG 12-LEAD (03/12/2025 4:03 PM EDT) Only the most recent of3 resultswithin the time period is included. Systolic Blood Pressure [facility] Diastolic Blood Pressure [facility] Ventricular Rate EKG/MIN 51 BPM [facility] Atrial Rate 51 BPM [facility] CO Interval 200 ms [facility] QRS Duration 102 ms [facility] QT Interval 512 ms [facility] QTC Interval 471 ms [facility] P Chauncey 32 degrees [facility] R Wave Chauncey -15 degrees [facility] T Wave Chauncey 9 degrees [facility] 03/12/2025 4:03 PM EDT 03/16/2025 12:09 AM EDT Narrative [facility] - 03/16/2025 12:09 AM EDT LOC: [facility] - CADIAC SURG DX: PRE-OP REF: SOTHERosa LEA - ANGLE ROLL OPERATOR SINUS BRADYCARDIA POOR R WAVE PROGRESSION NO PREVIOUS ECGS AVAILABLE us Olivier Lea ANGLE ROLL OPERATOR ECG ORDERABLES Final Result [facility] * XR CHEST PA AND LATERAL 2 VIEWS (03/12/2025 3:56 PM EDT) Anatomical Region Laterality Modality Chest Computed Radiogr aphy 03/12/2025 3:57 PM EDT Impressions 03/12/2025 4:17 PM EDT Clear lungs. No evidence of pneumonia. ATTESTATION: I, Dr. Dominik Dowell as teaching physician, have reviewed the images for this case and if necessary edited the report originally created by Mayank Figueroa. Narrative 03/12/2025 4:17 PM EDT XR CHEST PA AND LATERAL 2 VIEWS Referring clinician's provided indication for this examination in [facility]: Pre-Op COMPARISON: None available. FINDINGS: Devices/Tubes/Lines: None. Lungs: No focal consolidation or pulmonary edema. Pleura: No pleural effusion or pneumothorax. Heart/Mediastinum: Borderline enlargement of the cardiomediastinal silhouette. Bones/Soft Tissues: Postsurgical changes in the left breast. Degenerative changes of the bones. Procedure Note Dominik Dowell MD - 03/12/2025 XR CHEST PA AND LATERAL 2 VIEWS Referring clinician's provided indication for this examination in [facility]:Pre-Op COMPARISON: None available. FINDINGS: Devices/Tubes/Lines: None. Lungs: No focal consolidation or pulmonary edema. Pleura: No pleural effusion or pneumothorax. Heart/Mediastinum: Borderline enlargement of the cardiomediastinalsilhouette. Bones/Soft Tissues: Postsurgical changes in the left breast. Degenerativechanges of the bones. IMPRESSION: Clear lungs. No evidence of pneumonia. ATTESTATION: I, Dr. Domiink Dowell as teaching physician, have reviewedthe images for this case and if necessary edited the report originallycreated by Mayank Figueroa. Olivier PFEIFFER IMG XR CHEST Final Result * MRSA/MSSA PRE-OP PCR (03/12/2025 3:46 PM EDT) MRSA PCR SCREEN NEGATIVE FOR MRSA (Methicillin Resistant S.aureus) NEGATIVE FOR MRSA (Methicillin Resistant S.aureus) [facility] MSSA PCR SCREEN NEGATIVE FOR MSSA (Methicillin Susceptible S.aureus) NEGATIVE FOR MSSA (Methicillin Susceptible S.aureus) [facility] Comment:This test was conduc rafael as part of Pre-Operative Screening for Staphylococcus aureus. Please direct any questions regarding this result to the Ordering Provider. Nasal (Nasal) 03/12/2025 3:4 6 PM EDT 03/12/2025 5:47 PM EDT Olivier VALLEJOP NON CULTURE MICROBIOLOGY Jessica l Result [address] [address] * (ABNORMAL) Comprehensive metabolic panel (03/12/2025 3:46 PM EDT) Only the most recent of2 resultswithin the time period is included. SODIUM 142 135 - 145 mmol/L [facility] POTASSIUM 4.6 3.4 - 5.0 mmol/L [facility] CHLORIDE 105 98 - 108 mmol/L [facility] CO2 25 23 - 32 mmol/L [facility] BUN 30(H) 8 - 25 mg/dL [facility] CREATININE 2.01(H) 0.50 - 1.00 mg/dL [facility] GLUCOSE 86 70 - 110 mg/dL [facility] ALBUMIN 4.0 3.3 - 5.0 g/dL [facility] TOTAL PROTEIN 6.8 6.0 - 8.3 g/dL [facility] CALCIUM 9.4 8.5 - 10.5 mg/dL [facility] ALKALINE PHOSPHATASE 46 30 - 100 U/L [facility] TOTAL BILIRUBIN 0.4 0.0 - 1.0 mg/dL [facility] AST 16 9 - 32 U/L [facility] ALT 13 7 - 33 U/L [facility] GLOBULIN 2.8 1.9 - 4.1 g/dL [facility] EGFR 25(L) >59 mL/min/1. 73m2 [facility] Comment:Estimated glomerular filtration rate calculated using the CKD-EPI refit equation. ANION GAP 12 3 - 17 mmol/L [facility] 03/12/2025 3:46 PM EDT 03/12/2025 5:50 PM EDT Result [facility] Olivier Tate [facility] LAB BLOOD ORDERABLES Final Re sult Performing Organization Address City/[facility]/ZIP Co de Phone Number [address] [address] * ABO and Rh (03/12/2025 3:46 PM EDT) Expiration Date of Sample 04/11/2025 11:59 PM [facility] ABO A 03/12/2025 6:29 PM EDT [facility] Rh Positive 03/12/2025 6:29 PM EDT [facility] Resulting Agency [facility] 03/12/2025 3:46 PM EDT 03/12/2025 5:16 PM EDT Result [facility] Blood Bank BLOOD BANK TEST ORDERABLES Final Result [address] [address] * PTT (03/12/2025 3:46 PM EDT) APTT 27.6 24.0 - 37.5 sec [facility] Comment:Check MAR for the ta rget range that is ordered for your patient. 03/12/2025 3:46 PM EDT 03/12/2025 5:24 PM EDT Result [facility] Olivier Tate ANGLE ROLL OPERATOR LAB BLOOD ORDERABLES Final Re sult [address] [address] * PT-INR (03/12/2025 3:46 PM EDT) Pathologist [facility] PT 10.7 10.0 - 13.0 sec [facility] INR 0.9 0.9 - 1.1 [facility] 03/12/2025 3:46 PM EDT 03/12/2025 5:24 PM EDT [facility] ANGLE ROLL OPERATOR LAB BLOOD ORDERABLES Final Re sult Performing Organization Address City/[facility]/ZIP Co de Phone Number [address] [address] * (ABNORMAL) CBC and differential (03/12/2025 3:46 PM EDT) Only the most recent of3 resultswithin the time period is included. Pathologist [facility] WBC 5.43 4.00 - 11.00 K/uL [facility] RBC 3.77(L) 4.00 - 5.20 M/uL [facility] HGB 11.9(L) 12.0 - 16.0 g/dL [facility] HCT 37.6 36.0 - 46.0 % [facility] PLT 255 150 - 450 K/uL [facility] MCV 99.7 80.0 - 100.0 fL [facility] MCH 31.6(H) 27.0 - 31.0 pg [facility] MCHC 31.6(L) 32.0 - 36.0 g/dL [facility] RDW 13.5 11.5 - 14.5 % [facility] MPV 10.3 8.4 - 12.0 fL [facility] NRBC 0.00 0.00 /100 WBCs [facility] ABSOLUTE NRBC 0.00 0.00 K/uL [facility] DIFF [employer] [facility] NEUTS 65.7 48.0 - 76.0 % [facility] LYMPHS 20.6 18.0 - 41.0 % [facility] MONOS 10.7 4.0 - 11.0 % [facility] EOS 1.3 0.0 - 5.0 % [facility] BASOS 1.5 0.0 - 1.5 % [facility] % IMMATURE GRANS 0.2 0.0 - 0.9 % [facility] ABSOLUTE NEUTS 3.57 1.92 - 7.60 K/uL [facility] ABSOLUTE LYMPHS 1.12 0.72 - 4.10 K/uL [facility] ABSOLUTE MONOS 0.58 0.16 - 1.10 K/uL [facility] ABSOLUTE EOS 0.07 0.00 - 0.50 K/uL [facility] ABSOLUTE BASOS 0.08 0.00 - 0.15 K/uL [facility] ABS IMMATURE GRANS 0.01 0.00 - 0.09 K/uL [facility] Blood 03/12/2025 3:46 PM EDT 03/12/2025 5:48 PM EDT Olivier Tate [facility] LAB BLOOD ORDERABLES Final Re sult Performing Organization Address [facility] Co de Phone Number [address] [address] * Type and Screen (ABO,Rh,Antibody Screen) (03/12/2025 3:46 PM EDT) Expiration Date of Sample 04/11/2025 11:59 PM [facility] ABO A 03/12/2025 6:29 PM EDT [facility] Rh Positive 03/12/2025 6:29 PM EDT [facility] Resulting Agency [facility] Antibody Screen Negative 03/12/2025 6:20 PM EDT [facility] 03/12/2025 3:46 PM EDT 03/12/2025 5:16 PM EDT Olivier Lea [facility] BLOOD BANK TEST ORDERABLES Fi nal Result Performing Organization Address [facility] Co de Phone Number [address] [address] * (ABNORMAL) Magnesium (03/12/2025 3:46 PM EDT) Only the most recent of2 resultswithin the time period is included. MAGNESIUM 2.5(H) 1.7 - 2.4 mg/dL [facility] 03/12/2025 3:46 PM EDT 03/12/2025 5:50 PM EDT Result [facility] Olivier Tate [facility] LAB BLOOD ORDERABLES Final Re sult Performing Organization Address [facility] Co de Phone Number [address] [address] * (ABNORMAL) Hemoglobin A1c (03/12/2025 3:46 PM EDT) HEMOGLOBIN A1C 5.8(H) 4.3 - 5.6 % [facility] Comment:HbA1c levels 5.7-6.4 % represent pre-diabetes, indicating impaired glucose control and an increased risk of developing diabetes compared with lower HbA1c levels. The diagnostic HbA1c level for diabetes is 6.5% or greater. CALC MEAN BLD GLUC 120 mg/dL [facility] Comment:There is no establis hed normal range for the Calculated Mean Blood Glucose (CMBG), however a HbA1c of 5.6% (upper limit of normal) represents a CMBG of 114 mg/dL. The diagnostic hemoglobin A1c level for diabetes is greater than or equal to 6.5% which represents a CMBG greater than or equal to 140 mg/dL. 03/12/2025 3:46 PM EDT 03/12/2025 5:49 PM EDT Result [facility] Olivier Tate [facility] LAB BLOOD ORDERABLES Final Re sult Performing Organization Address [facility] Co de Phone Number [address] [address] * Pulmonary Function Test Reason for Exam: Dyspnea/Shortness of Breath; Type of PFT Test: Spirometry with bronchodilator, DLCO, Lung Volumes; Performing Location: [facility] [address] [place]; Request Procedure [place]: PFT; Type: PFT - Complete; [facility] PFT Lab will ... (03/12/2025 2:29 PM EDT) Anatomical Region Laterality Modality Other 03/12/2025 2:29 PM EDT Result [facility] Aleshia Leonard MD PFT ORDERABLES Final Result * MRI ANGIO ABDOMEN (ABDOMINAL AORTA) WITHOUT [...] the report originallycreated by Nicolás Alvarez MD. Result [facility] Bryn Curran MD IMG MR RODERICK Reese Final Result * Outside Cath Study (02/12/2025 1:08 PM EDT) Other Narrative SYSTEMGENERATED, DOCUMENTATION - 02/12/2025 1:08 PM EDT Outside Images for comparison purposes only. Result [facility] Provider [facility] Admitting CV CARDIAC CATH ORDERABLE S Final Result * Outside Echo Report Only (02/12/2025 1:08 PM EDT) Other Narrative SYSTEMGENERATED, DOCUMENTATION - 02/12/2025 1:08 PM EDT Outside Images for comparison purposes only. Result [facility] Admitting CV ECHO ORDERABLES Final Result * Outside Echo Report Only (02/12/2025 1:08 PM EDT) Other Narrative SYSTEMGENERATED, DOCUMENTATION - 02/12/2025 1:08 PM EDT Outside Images for comparison purposes only. Result [facility] Admitting CV ECHO ORDERABLES Final Result * [...] Consent was obtained by: Monster Driscoll MD, MBBS. Consent obtained by: Consent obtained with help of Citizen Of [place] first assistant manager as well as family members. Frannie [...] Yuen MD - 02/09/2025 11:04 AM EDT [facility] Patient Name: Ingris Mitchell Procedure Date: 02/09/2025 11:04 AM Date of : 1945 Age: 79 Gender: Female Attending MD: Anastacio Yuen MD, Instrument Name: [id number] Diagnostic EGD Procedure: Upper GI endoscopy Indications: Esophageal dysphagia, EGD evaluation prior to CB Providers: Anastacio Yuen MD, Trini Hassan, ALEXEY, Raymond Green RN Medicines: Monitored Anesthesia Care Referring MD: Carolina [...] infection, need for surgery, blood transfusions (unless Orthodoxy),heart and respiratory complications amongst others. The endoscope [...] specimens collected. Recommendation: - Refer to a print production coordinator as previously scheduled.The CB will be scheduled and endoscopy forcontinuation of her sedation for patient's convenience Anastacio Yuen MD 02/09/2025 11:53:27 AM This report has been signed electronically. Number of Addenda: 0 Estimated Blood Loss: Estimated blood loss: none. [address] [place] [phone] us Unknown Unknown GI PROCEDURE ORDERABLES Final [...] micropuncture kit. Sheath upsized to 7F sheath. Meredith-Srikanth catheter advanced and balloon inflated. Catheter passed [...] CV CARDIAC CATH ORDERABLES Final Result * (ABNORMAL) Basic metabolic panel (02/09/2025 7:30 AM EDT) SODIUM 141 136 - 145 mmol/L [facility] CHLORIDE 103 98 - 107 mmol/L [facility] POTASSIUM 4.1 3.4 - 5.1 mmol/L [facility] CO2 25 20 - 31 mmol/L [facility] BUN 34(H) 6 - 23 mg/dL [facility] CREATININE 2.08(H) 0.5 - 1.0 mg/dL [facility] GLUCOSE 102(H) 70 - 100 mg/dL [facility] CALCIUM 9.5 8.5 - 10.5 mg/dL [facility] EGFR 24 mL/min/1.7 3m2 [facility] Comment:Estimated glomerular filtration rate calculated using the CKD-EPI refit equation. ANION GAP 13 3 - 17 mmol/L [facility] Blood 02/09/2025 7:30 AM EDT 02/09/2025 7:35 AM EDT us Bryn Curran MD LAB BLOOD O RDERABLES Final Result [place] [id number] [phone] * (ABNORMAL) Lipid profile with direct LDL (01/18/2025 1:43 PM EDT) CHOLESTEROL 210(H) 0 - 200 mg/dL [facility] TRIGLYCERIDES 118 0 - 150 mg/dL [facility] HDL 66 40 - 80 mg/dL [facility] LDL Chol (Direct) 134(H) 0 - 130 mg/dL [facility] CARDIAC RISK RATIO 3.2 W [facility] Blood 01/18/2025 1:43 PM EDT 01/18/2025 1:46 PM EDT us Bryn Curran MD LAB BLOOD O RDERABLES Final Result [address] [phone] * TSH with reflex (01/18/2025 1:43 PM EDT) SCREENING PANEL: TSH 2.77 0.34 - 5.9 uIU/mL [facility] Blood 01/18/2025 1:43 PM EDT 01/18/2025 1:46 PM EDT us Bryn Curran MD LAB BLOOD O RDERABLES Final Result Performing Organization Address City/[facility]/[place] [address], [facility] [phone] * NT-proBNP (01/18/2025 1:43 PM EDT) NT-PROBNP 628 0 - 1,800 pg/mL [facility] Blood 01/18/2025 1:43 PM EDT 01/18/2025 1:46 PM EDT us Bryn Curran MD LAB BLOOD O RDERABLES Final Result [place], [place] [address] [phone] * Outside Echo Report Only (12/22/2024 10:16 AM EDT) Other Narrative SYSTEMGENERATED, DOCUMENTATION - 12/22/2024 10:16 AM EDT Outside Images for comparison purposes only. us Provider h Admitting CV ECHO ORDERABLES Final Result * Outside Lab (12/21/2024) us Scanning Interface Provider LAB BLOOD ORDERABLES Final Result from Last 3 Months Insurance MEDICARE PART A & B MEDICARE PART A & B MEDICARE PART A & B MEDICARE PART A & B MEDICARE PART A & B MEDICARE PART A & B Advance Directives For more information, please contact: [phone] (9AM - 5PM [facility], Saturday-Saturday) Documents on File Type Date Recorded Patient Customer Complaint Service Supervisor Expl anation Healthcare Proxy 03/12/2025 1:59 PM Advance Directive - Non Epic LMR 10/10/2009 12:00 AM Care Teams Country Printer Apprentice Relationship Specialty Start Date End Date Carolina Madison MD [address] [place] [address] PCP - General Internal Medicine 12/10/24 Aleshia Leonard MD [address] [address] MARIA [email or web address] Thoracic Surgery 01/26/25 Bryn Dominguez MD [address] [place] [address] [email or web address] Cardiology 02/25/25 Additional Source Comments The information contained in this document represents components of the legal health record. It is not the complete legal health record.[facility]
[2025-03-20 12:09] LABS: Blood Urea Nitrogen 36 mg/dL (9-16)
[2025-03-22 14:30] LABS: Estimated Glomerular Filt Rate 22
== END 2025-03-20 10:31 | disposition home or self-care (01) ==
LOC: HO.LAB 10:30
PROVIDERS: PCP Internal Medicine; Visit Provider Internal Medicine Hypertension Specialist
DX: N18.4 Chronic kidney disease, stage 4 (severe) (principal)
CPT/HCPCS: 36415; 82565; 84520

== ENCOUNTER 2025-03-21 17:49 | Outpatient (REF) | payer MEDICARE, SELFPAY ==
--- OUTSIDE RECORDS SUMMARY | 2025-03-21 17:53 | XMS_ITS | Clinical Summary ---
Author Organization [facility] Address [address] [place] [address] Care Team Providers Care Screw Down Name Role Phone Josias Rivers MD Primary Care Provider [phone] Source Comments PLEASE NOTE, if this patient [...] of Treatment Not on file Care Teams Screw Down Relationship Specialty Start Date End Date Josias Rivers MD [address] [place] [phone] PCP - General Internal Medicine 04/26/15
--- OUTSIDE RECORDS SUMMARY | 2025-03-21 17:53 | XMS_ITS | Encounter Summary ---
Author Organization [facility] Address [address] [facility] [address] [place] [address] Phone Care Team Providers Care Special Agent Group Insurance Name Role Phone Carolina Madison MD Primary Care Provider [phone] Aleshia Leonard MD Unavailable [phone] Bryn Dominguez MD Unavailabl e Encounter Details Date Type Department Care Team (Late st Contact Info) Description 12/22/2024 Telephone [facility] Division of Cardiac Surgery [address] [facility] 6th Floor, [address] [place] [address] Aleshia Leonard MD [address] [place] [address] [address] [place] [address] MARIA VICTORIA@[email or web address] Social History Tobacco Use Types Packs/Day Years [...] Description 03/25/2025 Procedure Pass [facility] PERIOPER[facility]IVE DEPT [address] [place] [phone] 03/25/2025 7:30 AM EDT Hospital Encounter [facility]PT [address] [place] [address] Aleshia Leonard MD [address] [address] MARIA [email or web address]@[email or web address] 03/25/2025 7:30 AM EDT - 03/25/2025 6:42 PM EDT Surgery [facility]PT [address] [place] [address] Aleshia Leonard MD [address] [address] MARIA VICTORIA@[email or web address] AscAoAneurysm Graft Replacement 05/03/2025 1:30 PM EST Office Visit [facility] Cardiology [address] [place] [address] Bryn Dominguez MD [address] [place] [address] [email or web address] Scheduled Procedures Name Priority Associated Diagnoses Date/Ti [...] on filedocumented in this encounter Care Teams Special Agent Group Insurance Relationship Specialty Start Date End Date Carolina Madison MD [address] [facility] [place] [address] PCP - General Internal Medicine 12/10/24 Aleshia Leonard MD [address] [place] [address] MARIA VICTORIA@[email or web address] Thoracic Surgery 01/26/25 Bryn Dominguez MD [address] [place] [address], [place] [address] [email or web address] Cardiology 02/25/25 documented as of this encounter Additional Source Comments The information contained in this document represents components of the legal health record. It is not the complete legal health record.[facility]
--- OUTSIDE RECORDS SUMMARY | 2025-03-21 17:53 | XMS_ITS | Clinical Summary ---
Author Organization [facility] Address [address] [place] [address] Care Team Providers Care Machine Fixer Name Role Phone Nicolette Wilson DO Primary Care Provider [phone] Allergies No known active allergies Medications Medication [...] age to complete this topic Care Teams Machine Fixer Relationship Specialty Start Date End Date Nicolette Wilson DO PCP - General Family Medicine 07/16/17
--- OUTSIDE RECORDS SUMMARY | 2025-03-21 17:53 | XMS_ITS | Encounter Summary ---
Author Organization [facility] Address [address] [facility] [address] [place] [address] Phone Care Team Providers Care Horse Race Starter Name Role Phone Carolina Madison MD Primary Care Provider [phone] Aleshia Leonard MD Unavailable [phone] Bryn Dominguez MD Unavailabl e Encounter Details Date Type Department Care Team (Late st Contact Info) Description 01/18/2025 Procedure Pass [facility] Cath/EP Lab [address] [place] [address] Social History Tobacco Use Types Packs/Day Years [...] 03/25/2025 Procedure Pass [facility] PERIOPERATIVE DEPT [address] [place] [address] 03/25/2025 7:30 AM EDT Hospital Encounter [facility] PERIOPER[facility]IVE DEPT [address] [place] [address] Aleshia Leonard MD [address] [address] MARIA VICTORIA@[email or web address] 03/25/2025 7:30 AM EDT - 03/25/2025 6:42 PM EDT Surgery [facility] PERIOPERATIVE DEPT [address] [place] [address] Aleshia Leonard MD [address] [address] MARIA VICTORIA@[email or web address] AscAoAneurysm Graft Replacement 05/03/2025 1:30 PM EST Office Visit [facility] Cardiology [address] [place] [address] Bryn Dominguez MD [address] [place] [address] [email or web address] Scheduled Procedures Name Priority Associated [...] on filedocumented in this encounter Care Teams Horse Race Starter Relationship Specialty Start Date End Date Carolina Madison MD [address] [facility] [place] [address] PCP - General Internal Medicine 12/10/24 Aleshia Leonard MD [address] [place] [address] MARIA VICTORIA@[email or web address] Thoracic Surgery 01/26/25 Bryn Dominguez MD [address] [place] [address] [place] [address] [email or web address] Cardiology 02/25/25 documented as of this encounter Additional Source Comments The information contained in this document represents components of the legal health record. It is not the complete legal health record.[facility]
--- OUTSIDE RECORDS SUMMARY | 2025-03-21 17:53 | XMS_ITS | Encounter Summary ---
Author Organization [facility] Address [address] [facility] [address] [place] [address] Phone Care Team Providers Care Environmental Department Manager Name Role Phone Carolina Madison MD Primary Care Provider [phone] Aleshia Leonard MD Unavailable [phone] Bryn Dominguez MD Unavailabl e Encounter Details Date Type Department Care Team (Late st Contact Info) Description 02/09/[address] [facility] Cath/EP Lab [address] [place] [address] Social History Tobacco Use Types Packs/Day Years [...] st Contact Info) Description 03/25/2025 Procedure Pass [facility] PERIOPERATIVE DEPT [address] [place] [phone] 03/25/2025 7:30 AM EDT Hospital Encounter [facility] PERIOPERATIVE DEPT [address] [place] [phone] Aleshia Leonard MD [address] [place] [address] MARIA VICTORIA@[email or web address] 03/25/2025 7:30 AM EDT - 03/25/2025 6:42 PM EDT Surgery [facility] PERIOPERATIVE DEPT [address] [place] [phone] Aleshia Leonard MD [address] [place] [address] MARIA VICTORIA@[email or web address] AscAoAneurysm Graft Replacement 05/03/2025 1:30 PM EST Office Visit [facility] Cardiology [address] [place] [address] Bryn Dominguez MD [address] [place] [address] [email or web address] Scheduled Procedures Name Priority Associated Diagnoses [...] on filedocumented in this encounter Care Teams Environmental Department Manager Relationship Specialty Start Date End Date Carolina Madison MD [address] [facility] [address] PCP - General Internal Medicine 12/10/24 Aleshia Leonard MD [address] [place] [address] MARIA [email or web address] Thoracic Surgery 01/26/25 Bryn Dominguez MD [address] [place] [address], [facility] [place] [address] [email or web address] Cardiology 02/25/25 documented as of this encounter Additional Source Comments The information contained in this document represents components of the legal health record. It is not the complete legal health record.[facility]
--- OUTSIDE RECORDS SUMMARY | 2025-03-21 17:53 | XMS_ITS | Encounter Summary ---
Author Organization [facility] Address [address] [facility] [address] [place] [address] Phone Care Team Providers Care Creative Services Intern Name Role Phone Carolina Madison MD Primary Care Provider [phone] Aleshia Leonard MD Unavailable [phone] Bryn Dominguez MD Unavailabl e Encounter Details Date Type Department Care Team (Late st Contact Info) Description 03/12/2025 Orders Only [facility] E[facility] LAB VIRTUAL DEPARTMENT [address] [place] [phone] Tasneem Cuevas [address] [place] [phone] [email or web address] Preop cardiovascular exam Social History Tobacco Use [...] st Contact Info) Description 03/25/2025 Procedure Pass [facility] PERIOPERATIVE DEPT [address] [place] [phone] 03/25/2025 7:30 AM EDT Hospital Encounter [facility] PERIOPER[facility]IVE DEPT [address] [place] [phone] Aleshia Leonard MD [address] [place] [address] MARIA VICTORIA@[email or web address] 03/25/2025 7:30 AM EDT - 03/25/2025 6:42 PM EDT Surgery [facility] PERIOPERATIVE DEPT [address] [place] [phone] Aleshia Leonard MD [address] [place] [phone] MARIA VICTORIA@[email or web address] AscAoAneurysm Graft Replacement 05/03/2025 1:30 PM EST Office [place] [address] Bryn Dominguez MD 19 [facility], [facility] [place] [address] [email or web address] Scheduled Procedures Name Priority Associated Diagnoses [...] BPM [facility] Atrial Rate 51 BPM [facility] [place] Interval 200 ms [facility] QRS Duration 102 ms [facility] QT Interval 512 ms [facility] QTC Interval 471 ms [facility] P [place] 32 degrees [facility] R Wave [place] -15 degrees [facility] T Wave [place] 9 degrees [facility] 03/12/2025 4:03 PM EDT 03/16/2025 12:09 AM EDT Narrative [facility] - 03/16/2025 12:09 AM EDT LOC: [facility] - CADIAC SURG DX: PRE-OP REF: IDA [place] - CODER SINUS BRADYCARDIA POOR R WAVE PROGRESSION NO PREVIOUS ECGS AVAILABLE us Ida Tate CODER ECG ORDERABLES Final Result [facility] documented in this encounter Visit Diagnoses Diagnosis Preop cardiovascular exam Pre-operative cardiovascular examination Aortic valve insufficiency, etiology of cardiac valve disease unspecified Ascending aortic aneurysm, unspecified whether ruptured Atrial fibrillation, unspecified type documented in this encounter Care Teams Creative Services Intern Relationship Specialty Start Date End Date Carolina Madison MD [address] [facility] [place] [address] PCP - General Internal Medicine 12/10/24 Aleshia Leonard MD [address] [place] [phone] MARIA VICTORIA@[email or web address] Thoracic Surgery 01/26/25 Bryn Dominguez MD [address] [place] [address] [email or web address] Cardiology 02/25/25 documented as of this encounter Additional Source Comments The information contained in this document represents components of the legal health record. It is not the complete legal health record.[facility]
--- OUTSIDE RECORDS SUMMARY | 2025-03-21 17:53 | XMS_ITS | Clinical Summary ---
Author Organization [facility] Address [address] [facility] [address] [place] [address] Phone Care Team Providers Care Toddler Nanny Name Role Phone Carolina Madison MD Primary Care Provider [phone] Aleshia Leonard MD Unavailable [phone] Bryn Dominguez MD Unavailabl e Allergies [...] - 03/12/2025 11:59 PM EDT Hospital Encounter [facility] Imaging - Emmanuel Berger 2 [address] [facility], 2nd [place] [address] Olivier Tate FNP Discharge Disposition: Home or Self Care 03/12/2025 3:29 PM EDT - 03/12/2025 3:48 PM EDT Hospital Encounter [facility] PATHOLOGY ACC[address] [place], [place] [address]CC-2 [place] [address] Aleshia Leonard MD Discharge Disposition: Home or Self Care 03/12/2025 2:15 PM EDT - 03/12/2025 3:28 PM EDT Hospital Encounter [facility] Pulmonary and Critical Care Unit [address] [place] [address], 2nd Floor, [address] [place] [address] Aleshia Leonard MD Discharge Disposition: Home or Self Care 03/12/2025 1:00 PM EDT Pre-Admission Testing [facility] Division of Cardiac Surgery [address] [place] [address], 6th Floor, [address] [place] [address] Aleshia Leonard MD Preop cardiovascular exam (Primary Dx); Abnormal finding of blood chemistry, unspecified 03/12/2025 Orders Only [facility] EKG LAB VIRTUAL DEPARTMENT [address] [place] [address] Tasneem Cuevas Preop cardiovascular exam 03/08/2025 Orders Only [facility] Division of Cardiac Surgery [address] [place] [address], 6th Floor, [address] [place] [address] Olivier Tate FNP SOB (shortness of breath) (Primary Dx) 02/25/2025 Documentation [facility] Division of Cardiac Surgery [address] [place] [address], 6th Floor, [address] [place] [address] Olivier Tate FNP 02/22/2025 Telephone [facility] Division of Cardiac Surgery [address] [place] [address], 6th Floor, [address] [place] [address] Aleshia Leonard MD 02/17/2025 9:38 PM EDT - 02/17/2025 11:59 PM EDT Hospital Encounter [facility] Imaging - MRI, [address] [place] [address] Bryn Dominguez MD Discharge Disposition: Home or Self Care 02/16/2025 1:45 PM EDT Office Visit [facility] Division of Cardiac Surgery [address] [facility], 6th Floor, [address] [place] [address] Aleshia Leonard MD Aneurysm of ascending aorta without rupture (Primary Dx) 02/12/2025 1:20 PM EDT Office Visit [facility] Cardiology Referral Images [address] [facility] [address] [place] [address] [facility] Admitting, Provider 02/12/2025 1:15 PM EDT Office Visit [facility] Cardiology Referral Images [address] [facility] [address] [place] [address] [facility] Admitting, Provider Diagnosis unknown 02/12/2025 1:10 PM EDT Office Visit [facility] Cardiology Referral Images [address] [facility] [address] [place] [address] [facility] Admitting, Provider Diagnosis unknown 02/12/2025 Procedure Pass [facility] Cardiology Referral Images [address] [facility] [address] [place] [address] 02/12/2025 Procedure Pass [facility] Cardiology Referral Images [address] [facility] [address] [place] [address] 02/12/2025 Orders Only [facility] Cardiovascular Medicine [address] [facility], 5th Floor, [address] [place] [address] Unknown, Jose J, Diagnosis unknown (Primary Dx) 02/12/2025 Documentation [facility] Division of Cardiac Surgery [address] [facility], 6th Floor, [address] [place] [address] Olivier Tate FNP 02/10/2025 Ancillary Orders [facility] [address] [place] [address] Aleshia Leonard MD 02/09/2025 11:55 AM EDT - 02/09/2025 12:39 PM EDT Surgery [facility] Endoscopy [address] [place] [address] Anastacio Yuen MD TRANSESOPHAGEAL ECHOCARDIOGRAM 02/09/2025 11:39 AM EDT Anesthesia Event [facility] Endoscopy [address] [place] [address] Candido Pryor MD Allen, King Limon MD 02/09/2025 9:35 AM EDT - 02/09/2025 11:59 PM EDT Hospital Encounter [facility] Cath/EP Lab [address] [place] [address] Bryn Dominguez MD Discharge Disposition: Home or Self Care 02/09/2025 8:00 AM EDT - 02/09/2025 9:30 AM EDT Surgery [facility] Cath/EP Lab [address] [place] [address] Bryn Dominguez MD Right and Left Heart Catheterization with possible LVGRAM 02/09/2025 7:16 AM EDT - 02/09/2025 1:55 PM EDT Hospital Encounter [facility] Endoscopy [address] [place] [address] Bryn Dominguez MD Discharge Disposition: Home or Self Care 02/09/2025 Procedure Pass [facility] Endoscopy [address] [place] [address] 02/09/2025 Procedure Pass [facility] Cath/EP Lab [address] [place] [address] 01/25/2025 Telephone [facility] Cardiology [address] [facility] [place] [address] Vanessa Galicia LPN Referral 01/19/2025 Procedure Pass [facility] Imaging - MRI, [address] [place] [address] 01/19/2025 Procedure Pass [facility], [address] [place] [address] 01/19/2025 Telephone [facility] Cardiology [address] [facility] [place] [address] Fallon Newberry RN CTA of Aorta 01/19/2025 Documentation [facility] Cardiology Virtual Department [address] [place] [address] Bryn Dominguez MD 01/18/2025 1:00 PM EDT Office Visit [facility] Cardiology [address] [place] [address] Bryn Dominguez MD Aneurysm of ascending aorta without rupture (Primary Dx); Severe aortic regurgitation; Hypertensive disorder; Atrial fibrillation, unspecified type; On amiodarone therapy; Postoperative hypothyroidism; Stage 4 chronic kidney disease; Preoperative cardiovascular examination 01/18/2025 Procedure Pass [facility] Cath/EP Lab [address] [place] [address] 12/22/2024 10:20 AM EDT Office Visit [facility] Cardiology Referral Images [address] [facility] [address] [place] [address] [facility] Admitting, Provider Diagnosis unknown 12/22/2024 Telephone [facility] Division of Cardiac Surgery [address] [facility], 6th Floor, [address] [place] [address] Aleshia Leonard MD 12/22/2024 Ancillary Orders [facility] Imaging [address] [place] [address] Aleshia Leonard MD 12/22/2024 Procedure Pass [facility] Cardiology Referral Images [address] [facility] [address] [place] [address] 12/22/2024 Transcribe Orders [facility] Cardiovascular Medicine [address] [facility], 5th Floor, [address] [place] [address] Unknown, Jose J, Diagnosis unknown (Primary Dx) [...] [facility] PERIOPERATIVE DEPT [address] [place] [address] 03/25/2025 7:30 AM EDT Hospital Encounter [facility] PERIOPERATIVE DEPT [address] [place] [address] Aleshia Leonard MD [address] [address] [email or web address] 03/25/2025 7:30 AM EDT - 03/25/2025 6:42 PM EDT Surgery [facility] PERIOPERATIVE DEPT [address] [place] [address] Aleshia Leonard MD [address] [address] MARIA [email or web address] AscAoAneurysm Graft Replacement 05/03/2025 1:30 PM EST Office Visit [facility] Cardiology [address] [place] [address] Bryn Dominguez MD [address] [facility], [place] [address] [email or web address] Scheduled Procedures Name Priority [...] 02/09/2025 11:11 AM EDT Dysphagia, unspecified type AK ESOPHAGOGASTRODUODENOSCOP Y TRANSORAL DIAGNOSTIC 02/09/2025 11:11 AM [...] BPM [facility] Atrial Rate 51 BPM [facility] AK Interval 200 ms [facility] QRS Duration 102 ms [facility] QT Interval 512 ms [facility] QTC Interval 471 ms [facility] P [place] 32 degrees [facility] R Wave [place] -15 degrees [facility] T Wave [place] 9 degrees [facility] 03/12/2025 4:03 PM EDT 03/16/2025 12:09 AM EDT Narrative [facility] - 03/16/2025 12:09 AM EDT LOC: [facility] - CADIAC SURG DX: PRE-OP REF: SOTHERosa LEA - PARTNERSHIP MARKETING MANAGER SINUS BRADYCARDIA POOR R WAVE PROGRESSION NO PREVIOUS ECGS AVAILABLE us Olivier Lea PARTNERSHIP MARKETING MANAGER ECG ORDERABLES Final Result [facility] * XR [...] clinician's provided indication for this examination in [facility]: Pre-Op COMPARISON: None available. FINDINGS: Devices/Tubes/Lines: None. Lungs: No focal consolidation or pulmonary edema. Pleura: No pleural effusion or pneumothorax. Heart/Mediastinum: Borderline enlargement of the cardiomediastinal silhouette. Bones/Soft Tissues: Postsurgical changes in the left breast. Degenerative changes of the bones. Procedure Note Dominik Dowell MD - 03/12/2025 XR CHEST PA AND LATERAL 2 VIEWS Referring clinician's provided indication for this examination in [facility]:Pre-Op COMPARISON: None available. FINDINGS: Devices/Tubes/Lines: None. Lungs: No focal consolidation or pulmonary edema. Pleura: No pleural effusion or pneumothorax. Heart/Mediastinum: Borderline enlargement of the cardiomediastinalsilhouette. Bones/Soft Tissues: Postsurgical changes in the left breast. Degenerativechanges of the bones. IMPRESSION: Clear lungs. No evidence of pneumonia. ATTESTATION: I, Dr. Dominik Dowell as teaching physician, have reviewedthe images for this case and if necessary edited the report originallycreated by Mayank Figueroa. Olivier PFEIFFER IMG XR CHEST Final Result * MRSA/MSSA PRE-OP PCR (03/12/2025 3:46 PM EDT) MRSA PCR SCREEN NEGATIVE FOR MRSA (Methicillin Resistant S.aureus) NEGATIVE FOR MRSA (Methicillin Resistant S.aureus) [facility] MSSA PCR SCREEN NEGATIVE FOR MSSA (Methicillin Susceptible S.aureus) NEGATIVE FOR MSSA (Methicillin Susceptible S.aureus) [facility] Comment:This test was conduc rafael as part of Pre-Operative Screening for Staphylococcus aureus. Please direct any questions regarding this result to the Ordering Provider. Nasal (Nasal) 03/12/2025 3:4 6 PM EDT 03/12/2025 5:47 PM EDT Olivier VALLEJOP NON CULTURE MICROBIOLOGY Jessica l Result [address] [address] * (ABNORMAL) Comprehensive metabolic panel (03/12/2025 3:46 PM EDT) Only the most recent of2 resultswithin the time period is included. SODIUM 142 135 - 145 mmol/L [facility] POTASSIUM 4.6 3.4 - 5.0 mmol/L [facility] CHLORIDE 105 98 - 108 mmol/L [facility] CO2 25 23 - 32 mmol/L [facility] BUN 30(H) 8 - 25 mg/dL [facility] CREATININE 2.01(H) 0.50 - 1.00 mg/dL [facility] GLUCOSE 86 70 - 110 mg/dL [facility] ALBUMIN 4.0 3.3 - 5.0 g/dL [facility] TOTAL PROTEIN 6.8 6.0 - 8.3 g/dL [facility] CALCIUM 9.4 8.5 - 10.5 mg/dL [facility] ALKALINE PHOSPHATASE 46 30 - 100 U/L [facility] TOTAL BILIRUBIN 0.4 0.0 - 1.0 mg/dL [facility] AST 16 9 - 32 U/L [facility] ALT 13 7 - 33 U/L [facility] GLOBULIN 2.8 1.9 - 4.1 g/dL [facility] EGFR 25(L) >59 mL/min/1. 73m2 [facility] Comment:Estimated glomerular filtration rate calculated using the CKD-EPI refit equation. ANION GAP 12 3 - 17 mmol/L [facility] 03/12/2025 3:46 PM EDT 03/12/2025 5:50 PM EDT Result [facility] Olivier Tate [employer] LAB BLOOD ORDERABLES Final Re sult Performing Organization Address City/[facility]/ZIP Co de Phone Number [address] [address] * ABO and Rh (03/12/2025 3:46 PM EDT) Expiration Date of Sample 04/11/2025 11:59 PM [facility] ABO A 03/12/2025 6:29 PM EDT [facility] Rh Positive 03/12/2025 6:29 PM EDT [facility] Resulting Agency [facility] 03/12/2025 3:46 PM EDT 03/12/2025 5:16 PM EDT Result [facility] Blood Bank BLOOD BANK TEST ORDERABLES Final Result [address] [address] * PTT (03/12/2025 3:46 PM EDT) APTT 27.6 24.0 - 37.5 sec [facility] Comment:Check MAR for the ta rget range that is ordered for your patient. 03/12/2025 3:46 PM EDT 03/12/2025 5:24 PM EDT Result [facility] Olivier Tate PARTNERSHIP MARKETING MANAGER LAB BLOOD ORDERABLES Final Re sult [address] [address] * PT-INR (03/12/2025 3:46 PM EDT) Pathologist [facility] PT 10.7 10.0 - 13.0 sec [facility] INR 0.9 0.9 - 1.1 [facility] 03/12/2025 3:46 PM EDT 03/12/2025 5:24 PM EDT [facility] PARTNERSHIP MARKETING MANAGER LAB BLOOD ORDERABLES Final Re sult Performing Organization Address City/[facility]/ZIP Co de Phone Number [address] [address] * (ABNORMAL) CBC and differential (03/12/2025 3:46 PM EDT) Only the most recent of3 resultswithin the time period is included. Pathologist [facility] WBC 5.43 4.00 - 11.00 K/uL [facility] RBC 3.77(L) 4.00 - 5.20 M/uL [facility] HGB 11.9(L) 12.0 - 16.0 g/dL [facility] HCT 37.6 36.0 - 46.0 % [facility] PLT 255 150 - 450 K/uL [facility] MCV 99.7 80.0 - 100.0 fL [facility] MCH 31.6(H) 27.0 - 31.0 pg [facility] MCHC 31.6(L) 32.0 - 36.0 g/dL [facility] RDW 13.5 11.5 - 14.5 % [facility] MPV 10.3 8.4 - 12.0 fL [facility] NRBC 0.00 0.00 /100 WBCs [facility] ABSOLUTE NRBC 0.00 0.00 K/uL [facility] DI[facility] [employer] [facility] NEUTS 65.7 48.0 - 76.0 % [facility] LYMPHS 20.6 18.0 - 41.0 % [facility] MONOS 10.7 4.0 - 11.0 % [facility] EOS 1.3 0.0 - 5.0 % [facility] BASOS 1.5 0.0 - 1.5 % [facility] % IMMATURE GRANS 0.2 0.0 - 0.9 % [facility] ABSOLUTE NEUTS 3.57 1.92 - 7.60 K/uL [facility] ABSOLUTE LYMPHS 1.12 0.72 - 4.10 K/uL [facility] ABSOLUTE MONOS 0.58 0.16 - 1.10 K/uL [facility] ABSOLUTE EOS 0.07 0.00 - 0.50 K/uL [facility] ABSOLUTE BASOS 0.08 0.00 - 0.15 K/uL [facility] ABS IMMATURE GRANS 0.01 0.00 - 0.09 K/uL [facility] Blood 03/12/2025 3:46 PM EDT 03/12/2025 5:48 PM EDT Olivier Tate [employer] LAB BLOOD ORDERABLES Final Re sult Performing Organization Address [facility] Co de Phone Number [address] [address] * Type and Screen (ABO,Rh,Antibody Screen) (03/12/2025 3:46 PM EDT) Expiration Date of Sample 04/11/2025 11:59 PM [facility] ABO A 03/12/2025 6:29 PM EDT [facility] Rh Positive 03/12/2025 6:29 PM EDT [facility] Resulting Agency [facility] Antibody Screen Negative 03/12/2025 6:20 PM EDT [facility] 03/12/2025 3:46 PM EDT 03/12/2025 5:16 PM EDT Olivier Lea [employer] BLOOD BANK TEST ORDERABLES Fi nal Result Performing Organization Address [facility] Co de Phone Number [address] [address] * (ABNORMAL) Magnesium (03/12/2025 3:46 PM EDT) Only the most recent of2 resultswithin the time period is included. MAGNESIUM 2.5(H) 1.7 - 2.4 mg/dL [facility] 03/12/2025 3:46 PM EDT 03/12/2025 5:50 PM EDT Result [facility] Olivier Tate [employer] LAB BLOOD ORDERABLES Final Re sult Performing Organization Address [facility] Co de Phone Number [address] [address] * (ABNORMAL) Hemoglobin A1c (03/12/2025 3:46 PM EDT) HEMOGLOBIN A1C 5.8(H) 4.3 - 5.6 % [facility] Comment:HbA1c levels 5.7-6.4 % represent pre-diabetes, indicating impaired glucose control and an increased risk of developing diabetes compared with lower HbA1c levels. The diagnostic HbA1c level for diabetes is 6.5% or greater. CALC MEAN BLD GLUC 120 mg/dL [facility] Comment:There is no establis hed normal range for the Calculated Mean Blood Glucose (CMBG), however a HbA1c of 5.6% (upper limit of normal) represents a CMBG of 114 mg/dL. The diagnostic hemoglobin A1c level for diabetes is greater than or equal to 6.5% which represents a CMBG greater than or equal to 140 mg/dL. 03/12/2025 3:46 PM EDT 03/12/2025 5:49 PM EDT Result [facility] Olivier Tate [employer] LAB BLOOD ORDERABLES Final Re sult Performing Organization Address [facility] Co de Phone Number [address] [address] * Pulmonary Function Test Reason for Exam: Dyspnea/Shortness of Breath; Type of PFT Test: Spirometry with bronchodilator, DLCO, Lung Volumes; Performing Location: [facility] [address]; Request Procedure [place]: PFT; Type: PFT - Complete; [facility] PFT Lab will ... (03/12/2025 2:29 PM EDT) Anatomical Region Laterality Modality Other 03/12/2025 2:29 PM EDT Result [facility] Aleshia Leonard MD PFT ORDERABLES Final [...] report originallycreated by Nicolás Alvarez MD. Result [facility] Bryn Curran MD IMG MR RODERICK Reese Final Result * Outside Cath Study (02/12/2025 1:08 PM EDT) Other Narrative SYSTEMGENERATED, DOCUMENTATION - 02/12/2025 1:08 PM EDT Outside Images for comparison purposes only. Result [facility] Provider [facility] Admitting CV CARDIAC CATH ORDERABLE S Final Result * Outside Echo Report Only (02/12/2025 1:08 PM EDT) Other Narrative SYSTEMGENERATED, DOCUMENTATION - 02/12/2025 1:08 PM EDT Outside Images for comparison purposes only. Result [facility] Admitting CV ECHO ORDERABLES Final Result * Outside Echo Report Only (02/12/2025 1:08 PM EDT) Other Narrative SYSTEMGENERATED, DOCUMENTATION - 02/12/2025 1:08 PM EDT Outside Images for comparison purposes only. Result [facility] Admitting CV ECHO ORDERABLES Final Result [...] obtained by: Consent obtained with help of [place] [employer] retail consultant as well as family members. Frannie Alves [...] Yuen MD - 02/09/2025 11:04 AM EDT [facility] Patient Name: Ingris [...] infection, need for surgery, blood transfusions (unless Yazidism),heart and respiratory complications amongst others. The endoscope [...] specimens collected. Recommendation: - Refer to a email production specialist as previously scheduled.The CB will be scheduled and endoscopy forcontinuation of her sedation for patient's convenience Anastacio Yuen MD 02/09/2025 11:53:27 AM This report has been signed electronically. Number of Addenda: 0 Estimated Blood Loss: Estimated blood loss: none. [address] [place] [phone] us Unknown Unknown GI PROCEDURE ORDERABLES Final [...] micropuncture kit. Sheath upsized to 7F sheath. [place]-Srikanth catheter advanced and balloon inflated. Catheter passed [...] EDT) SODIUM 141 136 - 145 mmol/L [facility] CHLORIDE 103 98 - 107 mmol/L [facility] POTASSIUM 4.1 3.4 - 5.1 mmol/L [facility] CO2 25 20 - 31 mmol/L [facility] BUN 34(H) 6 - 23 mg/dL [facility] CREATININE 2.08(H) 0.5 - 1.0 mg/dL [facility] GLUCOSE 102(H) 70 - 100 mg/dL [facility] CALCIUM 9.5 8.5 - 10.5 mg/dL [facility] EGFR 24 mL/min/1.7 3m2 [facility] Comment:Estimated glomerular filtration rate calculated using the CKD-EPI refit equation. ANION GAP 13 3 - 17 mmol/L [facility] Blood 02/09/2025 7:30 AM EDT 02/09/2025 7:35 AM EDT us Bryn Curran MD LAB BLOOD O RDERABLES Final Result [place] [id number] [phone] * (ABNORMAL) Lipid profile with direct LDL (01/18/2025 1:43 PM EDT) CHOLESTEROL 210(H) 0 - 200 mg/dL [facility] TRIGLYCERIDES 118 0 - 150 mg/dL [facility] HDL 66 40 - 80 mg/dL [facility] LDL Chol (Direct) 134(H) 0 - 130 mg/dL [facility] CARDIAC RISK RATIO 3.2 [facility] Blood 01/18/2025 1:43 PM EDT 01/18/2025 1:46 PM EDT us Bryn Curran MD LAB BLOOD O RDERABLES Final Result [address] [phone] * TSH with reflex (01/18/2025 1:43 PM EDT) SCREENING PANEL: TSH 2.77 0.34 - 5.9 uIU/mL [facility] Blood 01/18/2025 1:43 PM EDT 01/18/2025 1:46 PM EDT us Bryn Curran MD LAB BLOOD O RDERABLES Final Result Performing Organization Address City/[facility]/[place] [address], [facility] [phone] * NT-proBNP (01/18/2025 1:43 PM EDT) NT-PROBNP 628 0 - 1,800 pg/mL [facility] Blood 01/18/2025 1:43 PM EDT 01/18/2025 1:46 PM EDT us Bryn Curran MD LAB BLOOD O RDERABLES Final Result [place], [place] [address] [phone] * Outside Echo Report Only (12/22/2024 10:16 [...] Advance Directives For more information, please contact: [phone] (9AM - 5PM [facility], Saturday-Saturday) Documents on File Type Date Recorded 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 Expl anation Healthcare Proxy 03/12/2025 1:59 PM Advance Directive - Non Epic LMR 10/10/2009 12:00 AM Care Teams Toddler Nanny Relationship Specialty Start Date End Date [place] MD [address] [place] [address] PCP - General Internal Medicine 12/10/24 Aleshia Leonard MD [address] [address] [email or web address] Thoracic Surgery 01/26/25 Bryn Dominguez MD [address] [place] [address] [email or web address] Cardiology 02/25/25 Additional Source Comments The information contained in this document represents components of the legal health record. It is not the complete legal health record.[facility]
--- OUTSIDE RECORDS SUMMARY | 2025-03-21 17:53 | XMS_ITS | Encounter Summary ---
Author Organization [facility] Address [address] [place] [address] [place] [address] Phone Care Team Providers Care Retail Attendant Name Role Phone Carolina [place] MD Primary Care Provider [phone] Aleshia Leonard MD Unavailable [phone] Bryn Dominguez MD Unavailabl e Encounter Details Date Type Department Care Team (Late st Contact Info) Description 01/19/2025 Procedure Pass [facility] Imaging - MRI, Main [place] [address] [id number] Social History Tobacco Use Types Packs/Day Years [...] [facility] [address] [place] [address] 03/25/2025 7:30 AM EDT Hospital Encounter [facility] PER[facility]IVE DEPT [address] [place] [address] Aleshia Leonard MD [address] [place] [address] MARIA VICTORIA@[facility] 03/25/2025 7:30 AM EDT - 03/25/2025 6:42 PM EDT Surgery [facility] PERIOPERATIVE DEPT [address] [place] [address] Aleshia Leonard MD [address] [place] [address] MARIA VICTORIA@[facility] AscAoAneurysm Graft Replacement 05/03/2025 1:30 PM EST Office Visit [facility] Cardiology [address] [place] [address] Bryn Dominguez MD [address] [place] [address] [email or web address] Scheduled Procedures Name Priority Associated Diagnoses [...] on filedocumented in this encounter Care Teams Retail Attendant Relationship Specialty Start Date End Date Carolina [place] MD [address] [facility] [place] [address] PCP - General Internal Medicine 12/10/24 Aleshia Leonard MD [address] [place] [address] MARIA VICTORIA@[email or web address] Thoracic Surgery 01/26/25 Bryn Dominguez MD [address] [place] [address], [place] [address] [email or web address] Cardiology 02/25/25 documented as of this encounter Additional Source Comments The information contained in this document represents components of the legal health record. It is not the complete legal health record.[facility]
--- OUTSIDE RECORDS SUMMARY | 2025-03-21 17:53 | XMS_ITS | Encounter Summary ---
Author Organization [facility] Address [address] [facility] [address] [place] [address] Phone Care Team Providers Care Tractor Technician Name Role Phone Carolina [place] MD Primary Care Provider [phone] Aleshia Leonard MD Unavailable [phone] Bryn Dominguez MD Unavailabl e Encounter Details Date Type Department Care Team (Late st Contact Info) Description 02/12/2025 Procedure Pass [facility] Cardiology Referral Images [address] [place] [address] Social History Tobacco Use Types Packs/Day Years [...] Contact Info) Description 03/25/2025 Procedure Pass [facility] PERIOPERATIVE DEPT [address] [place] [phone] 03/25/2025 7:30 AM EDT Hospital Encounter [facility] PERIOPERATIVE DEPT [address] [place] [phone] Aleshia Leonard MD [address] [place] [address] MARIA VICTORIA@[facility] 03/25/2025 7:30 AM EDT - 03/25/2025 6:42 PM EDT Surgery [facility] PERIOPERATIVE DEPT [address] [place] [phone] Aleshia Leonard MD [address] [place] [address] MARIA VICTORIA@[facility] AscAoAneurysm Graft Replacement 05/03/2025 1:30 PM EST Office Visit [facility] Cardiology [address] [place] [address] Bryn Dominguez MD [address] [place] [address] [email or web address] Scheduled Procedures Name Priority Associated Diagnoses [...] on filedocumented in this encounter Care Teams Tractor Technician Relationship Specialty Start Date End Date Carolina [place] MD [address] [facility] [place] [address] PCP - General Internal Medicine 12/10/24 Aleshia Leonard MD [address] [place] [address] MARIA VICTORIA@[email or web address].[email or web address] Thoracic Surgery 01/26/25 Bryn Dominguez MD [address] [place] [address], [place] [address] [email or web address] Cardiology 02/25/25 documented as of this encounter Additional Source Comments The information contained in this document represents components of the legal health record. It is not the complete legal health record.[facility]
--- OUTSIDE RECORDS SUMMARY | 2025-03-21 17:53 | XMS_ITS | Clinical Summary ---
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 Knee pain, left anterior 08/05/2017 FAUSTINO (obstructive sleep apnea) 08/05/2017 Displacement of lumbar inter vertebral disc without myelopathy 10/01/2012 Radiculitis, lumbosacral 10/01/2012 Breast cancer ([facility] V24, [facility] V28) 010 Overview (03/18/2025): Left Breast Tx lumpectomy and XRT 01/2010 Encounters Date Type Department Care Team Description 12/21/2024 9:50 AM EDT Consult [facility] - [place] [address] [facility] [address] [facility] [address] [place] [address] Hanna Jordan PA Gastroesophageal reflux disease without [...] Upcoming Encounters Date Type Department Care Team ([facility] st Contact Info) Description 03/24/2025 9:50 AM EDT Office Visit [facility] - [place] [address] [facility] [address] [place] [phone] Hanna Jordan PA [address] [place] [address] Health Maintenance Due Date Last Done Comments [...] complete this topic Insurance MEDICARE Care Teams Automobile Radio Repairer Relationship Specialty Start Date End Date Wisam Taylor MD [address] [place] [phone] PCP - General Internal Medicine 09/11/12
--- OUTSIDE RECORDS SUMMARY | 2025-03-21 17:53 | XMS_ITS | Encounter Summary ---
Author Organization [facility] Address [address] [facility] [address] [place] [address] Phone Care Team Providers Care Metal Patternmaker Apprentice Name Role Phone Carolina [place] MD Primary Care Provider [phone] Aleshia Leonard MD Unavailable [phone] Bryn Dominguez MD Unavailabl e Encounter Details Date Type Department Care Team (Late st Contact Info) Description 02/09/2025 Procedure Pass [facility] Endoscopy [address] [place] [address] Social History Tobacco Use Types Packs/Day Years [...] [facility] [address] [place] [address] 03/25/2025 7:30 AM EDT Hospital Encounter [facility] PERI[facility]IVE DEPT [address] [place] [address] Aleshia Leonard MD [address] [place] [address] MARIA VICTORIA@[email or web address] 03/25/2025 7:30 AM EDT - 03/25/2025 6:42 PM EDT Surgery [facility] PERIOPERATIVE DEPT [address] [place] [phone] Aleshia Leonard MD [address] [place] [address] MARIA VICTORIA@[facility] AscAoAneurysm Graft Replacement 05/03/2025 1:30 PM EST Office Visit [facility] Cardiology [address] [place] [address] Bryn Dominguez MD [address] [place] [address] [place] [address] [email or web address] Scheduled Procedures Name Priority Associated Diagnoses [...] on filedocumented in this encounter Care Teams Metal Patternmaker Apprentice Relationship Specialty Start Date End Date Carolina [place] MD [address] [place] [address] PCP - General Internal Medicine 12/10/24 Aleshia Leonard MD [address] [place] [address] MARIA VICTORIA@[email or web address] Thoracic Surgery 01/26/25 Bryn Dominguez MD [address] [place] [address], [place] [address] [email or web address] Cardiology 02/25/25 documented as of this encounter Additional Source Comments The information contained in this document represents components of the legal health record. It is not the complete legal health record.[facility]
--- OUTSIDE RECORDS SUMMARY | 2025-03-21 17:53 | XMS_ITS | Encounter Summary ---
Author Organization [facility] Address [address] [place] [address] [place] [address] Phone Care Team Providers Care Forest Officer Name Role Phone Carolina [place] MD Primary Care Provider [phone] Aleshia Leonard MD Unavailable [phone] Bryn Dominguez MD Unavailabl e Encounter Details Date Type Department Care Team (Late st Contact Info) Description 01/19/2025 Procedure Pass [facility] Imaging - MRI, Main [place] [address] [phone] Social History Tobacco Use Types Packs/Day Years [...] st Contact Info) Description 03/25/2025 Procedure Pass [facility] PERIOPERATIVE DEPT [address] [place] [address] 03/25/2025 7:30 AM EDT Hospital Encounter [facility] PERIOPERATIVE DEPT [address] [place] [address] Aleshia Leonard MD [address] [place] [address] MARIA VICTORIA@[email or web address] 03/25/2025 7:30 AM EDT - 03/25/2025 6:42 PM EDT Surgery [facility] PERIOPERATIVE DEPT [address] [place] [address] Aleshia Leonard MD [address] [place] [address] MARIA VICTORIA@[facility] AscAoAneurysm Graft Replacement 05/03/2025 1:30 PM EST Office Visit [facility] Cardiology [address] [place] [address] Bryn Dominguez MD 19 [place] [address] [email or web address] Scheduled Procedures Name Priority Associated Diagnoses Date/Ti [...] on filedocumented in this encounter Care Teams Forest Officer Relationship Specialty Start Date End Date Carolina [place] MD [address] [facility] [place] [address] PCP - General Internal Medicine 12/10/24 Aleshia Leonard MD [address] [place] [address] MARIA VICTORIA@[facility] Thoracic Surgery 01/26/25 Bryn Dominguez MD [address] [place] [address], [facility] [place] [address] [email or web address] Cardiology 02/25/25 documented as of this encounter Additional Source Comments The information contained in this document represents components of the legal health record. It is not the complete legal health record.[facility]
--- OUTSIDE RECORDS SUMMARY | 2025-03-21 17:53 | XMS_ITS | Encounter Summary ---
Author Organization [facility] Address [address] [facility] [address] [place] [address] Phone Care Team Providers Care Fire Crew Worker Name Role Phone Carolina [place] MD Primary Care Provider [phone] Aleshia Leonard MD Unavailable [phone] Bryn Dominguez MD Unavailabl e Encounter Details Date Type Department Care Team (Late st Contact Info) Description 02/12/2025 Procedure Pass [facility] Cardiology Referral Images [address] [place] [address] Social History Tobacco Use Types Packs/Day Years [...] st Contact Info) Description 03/25/2025 Procedure Pass [facility]IVE DEPT [address] [place] [phone] 03/25/2025 7:30 AM EDT Hospital Encounter [facility] [address] [place] [phone] Aleshia Leonard MD [address] [place] [address] MARIA VICTORIA@[facility] 03/25/2025 7:30 AM EDT - 03/25/2025 6:42 PM EDT Surgery [facility] [address] [place] [phone] Aleshia Leonard MD [address] [place] [address] MARIA VICTORIA@[facility] AscAoAneurysm Graft Replacement 05/03/2025 1:30 PM EST Office Visit [facility] Cardiology [address] [place] [address] Bryn Dominguez MD [address] [place] [address] [email or web address] Scheduled Procedures Name [...] on filedocumented in this encounter Care Teams Fire Crew Worker Relationship Specialty Start Date End Date Carolina [place] MD [address] [facility] [place] [address] PCP - General Internal Medicine 12/10/24 Aleshia Leonard MD [address] [place] [address] MARIA VICTORIA@[email or web address] Thoracic Surgery 01/26/25 Bryn Dominguez MD [address] [place] [address], [facility] [place] [address] [email or web address] Cardiology 02/25/25 documented as of this encounter Additional Source Comments The information contained in this document represents components of the legal health record. It is not the complete legal health record.[facility]
--- OUTSIDE RECORDS SUMMARY | 2025-03-21 17:53 | XMS_ITS | Encounter Summary ---
Author Organization [facility] Address [address] [facility] [address] [place] [address] Phone Care Team Providers Care Agricultural And Forestry Supervisor Name Role Phone Carolina [place] MD Primary Care Provider Aleshia Leonard MD Unavailable [phone] Bryn Dominguez MD Unavailabl e Encounter Details Date Type Department Care Team (Late Contact Info) Description 12/22/2024 Procedure Pass [facility] Cardiology Referral Images [address] [place] [address] Social History Tobacco Use Types Packs/Day Years [...] (Late Contact Info) Description 03/25/2025 Procedure Pass [facility] PERIOPERATIVE DEPT [address] [place] [address] 03/25/2025 7:30 AM EDT Hospital Encounter [facility] PERIOPERATIVE DEPT [address] [place] [address] Aleshia Leonard MD [address] [address] MARIA VICTORIA@[facility] 03/25/2025 7:30 AM EDT - 03/25/2025 6:42 PM EDT Surgery [facility] PERIOPERATIVE DEPT [address] [place] [address] Aleshia Leonard MD [address] [address] MARIA VICTORIA@[facility] AscAoAneurysm Graft Replacement 05/03/2025 1:30 PM EST Office Visit [facility] Cardiology [address] [place] [address] Bryn Dominguez MD 19 [place] [address] [email or web address] Scheduled Procedures [...] on filedocumented in this encounter Care Teams Agricultural And Forestry Supervisor Relationship Specialty Start Date End Date Carolina [place] MD [address] [place] [address] PCP - General Internal Medicine 12/10/24 Aleshia [place] MD [address] [place] [address] MARIA VICTORIA@[email or web address] Thoracic Surgery 01/26/25 Bryn Dominguez MD [address] [place] [address] [email or web address] Cardiology 02/25/25 documented as of this encounter Additional Source Comments The information contained in this document represents components of the legal health record. It is not the complete legal health record.[facility]
== END 2025-03-21 17:50 | disposition home or self-care (01) ==
LOC: HO.LAB 17:49
PROVIDERS: Visit Provider Internal Medicine Hypertension Specialist
DX: Z13.89 Encounter for screening for other disorder (principal)

== ENCOUNTER 2025-03-22 14:05 | Outpatient (AMB) | payer MEDICARE, SELFPAY ==
[2025-03-22 14:08] VITALS: BP 116/40; PULSE 54; O2SAT 91; BMI 30.1
--- NOTE | 2025-03-22 14:08 | HO.NEPHOV_ITS ---
Vital Signs 03/22/25 14:08 Height 5 ft 3.2 in Weight 171 lb BMI 30.1 BP 116/40 L Blood Pressure Location Rt brachial Position Sitting Pulse 54 Pulse Source Pulse Oximeter Pulse Oximetry (%) 91 L Oxygen Delivery Method Room Air Intake Visit Reasons: Mar 22 f/u w/labs, confirmed Chemical Tank Worker Required: No Chemical Tank Worker Services: Chemical Tank Worker Offered & Declined (Daughter will translate ) Accompanied by: Daughter Allergies No Known Allergies Allergy (Verified 03/22/25 14:09) Medication List - Last Reconciled 03/22/25 by Jb Jerez MD amiodarone 200 mg PO DAILY amlodipine-olmesartan 10-20 mg 1 tab PO DAILY citalopram 20 mg PO DAILY indapamide 1.25 mg PO QAM levothyroxine 75 mcg PO DAILY mecobalamin (vitamin B12) PO rivaroxaban (Xarelto) 15 mg PO DAILY HPI Comments Details: - The patient is a 79-year-old female presenting with chronic kidney disease. - Chronic kidney disease with creatinine 1.78 and kidney function 27% as of November. - Preparing for aortic valve replacement surgery on March 25. - History of hypertension and atrial fibrillation, on amiodarone and Xarelto. - Past surgeries: breast, back, thyroidectomy. - Breast cancer treated 14 years ago with surgery and medications. - History of melanoma. - Reports edema, especially with socks. - Medications: amlodipine, Olmesartan, citalopram, indapamide, levothyroxine, vitamin B12. 03/22/25 Overall feels better after lowering Amlodipine/Olmesartan Occasional lightheadedness when she stands- for the past month or so. No syncope No edema PFSH Medical History Anxiety Bradycardia CKD (chronic kidney disease) stage 4, GFR 15-29 ml/min Sleep apnea Aortic regurgitation GERD (gastroesophageal reflux disease) A-fib HTN (hypertension) Surgical History Hx of thyroidectomy Hx of breast surgery History of back surgery Family History Father Hypertension Heart attack Mother No problems noted. Social History Household Members Other:: , lives in [place] for most of the year Housing: House Patient Tobacco Use Status: Former Tobacco user e-Cigarette/Vaping Use: Never Used service: No Current occupational status: retired Cognitive needs: No Hearing needs: No Vision needs: Yes Physical Exam Vital Signs: Last Vital Signs Pulse 54 03/22/25 14:08 BP 116/40 L 03/22/25 14:08 Pulse Ox 91 L 03/22/25 14:08 Oxygen Delivery Method Room Air 03/22/25 14:08 BMI result Body Mass Index 30.1 Physical Exam General: Awake. Comfortable. No orthostatic BP change HENT: Neck supple. Mucosa moist. Pulmonary: Lungs aeration equal. No rales. Cardiology: Heart S1-S2 heard. No gallop.Murmur + Abdomen: Soft. Non tender. Bowel sounds normal. Neurologic: No involuntary movements. No myoclonus. Losing balance, feels like being pulled to one side. Extremities: No edema Results Reviewed Nephrology Results: Hgb, (12.0-16.0) 12.6 g/dl 03/10/25 WBC, (4.8-10.8) 4.6 X10*3/uL L 03/10/25 Plt Count, (160-400) 244 X10*3/uL 03/10/25 Sodium, (135-145) 142 mmol/L 03/10/25 Potassium, (3.3-5.1) 4.3 mmol/L 03/10/25 Chloride, (96-108) 105 mmol/L 03/10/25 Carbon Dioxide, (22-29) 29 mmol/L 03/10/25 BUN, (9-16) 36 mg/dL H 03/20/25 Creatinine, (0.5-1.4) 1.91 mg/dL H 03/10/25 Calcium, (8.4-10.2) 9.0 mg/dL 03/10/25 Urine Protein, (Neg-Trace) Negative mg/dL 03/10/25 Urine Creatinine 90.77 mg/dL 03/10/25 Renal US 12/16/24 Assessment & Plan Assessment & Plan (1) HTN (hypertension): Code(s): I10 - Essential (primary) hypertension Category: Medical (2) CKD (chronic kidney disease) stage 4, GFR 15-29 ml/min: Code(s): N18.4 - Chronic kidney disease, stage 4 (severe) Category: Medical Plan 1. Chronic Kidney Disease Serum creatinine was 1.78 mg/dL with the an estimated GFR of 27 mL/minute in November of 2024 No further readings are available. The exact baseline is not known at this time Urinalysis did not reveal any significant blood or protein. No casts. Renal ultrasonogram in December 2024 was unremarkable. Both kidneys appeared normal. No hydronephrosis. 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 Acute kidney injury due to hypoperfusion can not be ruled out yet Plan was to decrease olmesartan by 50%. Discontinued amlodipine/olmesartan and replaced it with amlodipine olmesartan 10/20 one a day. Repeat labs pending - Drink at least four glasses of water daily unless otherwise instructed. - Avoid NSAIDs like Aleve, Advil, and Motrin. 2. H/o Hypertension BP at goal - Reassess medication needs post-surgery. 3. Atrial Fibrillation - on amiodarone and Xarelto. At this point there is no absolute contraindication for cardiac surgery. Orders: Orders Creatinine Today N18.4 - Chronic kidney disease, stage 4 (severe) Add Laboratory Test 03/21/25 N18.4 - Chronic kidney disease, stage 4 (severe) Coding Level of Care Code Est Pt Level 4 (93947) Diagnoses HTN (hypertension) I10 CKD (chronic kidney disease) stage 4, GFR 15-29 ml/min N18.4
--- OUTSIDE RECORDS SUMMARY | 2025-03-22 16:38 | XMS_ITS | Clinical Summary ---
Author Organization [facility] Address [address] [place] [address] Care Team Providers Care Television Repairman Name Role Phone Nicolette Wilson DO Primary Care Provider [phone] Allergies No known active allergies Medications Medication [...] Mother Relation Name Status Comments Brother Father OR, CVD Maternal Cousin Breast Cance r Maternal [...] age to complete this topic Care Teams Television Repairman Relationship Specialty Start Date End Date Nicolette Wilson DO PCP - General Family Medicine 07/16/17
--- OUTSIDE RECORDS SUMMARY | 2025-03-22 16:38 | XMS_ITS | Encounter Summary ---
Author Organization [facility] Address [address] [facility] [address] [place] [address] Phone Care Team Providers Care Pad Tufter Name Role Phone Carolina Madison MD Primary Care Provider [phone] Aleshia Leonard MD Unavailable [phone] Bryn Dominguez MD Unavailabl e Encounter Details Date Type Department Care Team (Late st Contact Info) Description 02/12/2025 Procedure Pass [facility] Cardiology Referral Images [address] [place] [address] Social History Tobacco Use Types Packs/Day Years [...] Description 03/25/2025 Procedure Pass [facility] PERI[facility]IVE DEPT [address] [place] [phone] 03/25/2025 7:30 AM EDT Hospital Encounter [facility] [address] [place] [phone] Aleshia Leonard MD [address] [place] [address] MARIA VICTORIA@[email or web address] 03/25/2025 7:30 AM EDT - 03/25/2025 6:42 PM EDT Surgery [facility] PERI[facility]IVE [facility]PT [address] [place] [phone] Aleshia Leonard MD [address] [place] [address] MARIA VICTORIA@[facility] AscAoAneurysm Graft Replacement 05/03/2025 1:30 PM EST Office Visit [facility] Cardiology [address] [place] [address] Bryn Dominguez MD [address] [place] [address] [email or web address] Scheduled Procedures Name Priority Associated Diagnoses [...] on filedocumented in this encounter Care Teams Pad Tufter Relationship Specialty Start Date End Date Carolina Madison MD [address] [place] [address] PCP - General Internal Medicine 12/10/24 Aleshia Leonard MD [address] [place] [address] MARIA VICTORIA@[facility].[place] [place] Thoracic Surgery 01/26/25 Bryn Dominguez MD [address] [place] [address], [place] [address] [email or web address] Cardiology 02/25/25 documented as of this encounter Additional Source Comments The information contained in this document represents components of the legal health record. It is not the complete legal health record.[facility]
--- OUTSIDE RECORDS SUMMARY | 2025-03-22 16:38 | XMS_ITS | Encounter Summary ---
Author Organization [facility] Address [address] [facility] [address] [place] [address] Phone Care Team Providers Care School Photograph Editor Name Role Phone Carolina Madison MD Primary Care Provider [phone] Aleshia Leonard MD Unavailable [phone] Bryn Dominguez MD Unavailabl e Encounter Details Date Type Department Care Team (Late st Contact Info) Description 02/09/2025 Procedure Pass [facility] Cath/EP Lab [address] [place] [address] Social History Tobacco Use Types Packs/Day Years [...] Contact Info) Description 03/25/2025 Procedure Pass [facility] PERI[facility]IVE [facility]PT [address] [place] [phone] 03/25/2025 7:30 AM EDT Hospital Encounter [facility]IVE [facility] [address] [place] [phone] Aleshia Leonard MD [address] [place] [address] MARIA VICTORIA@[facility] 03/25/2025 7:30 AM EDT - 03/25/2025 6:42 PM EDT Surgery [facility] PERIOPERATIVE DEPT [address] [place] [phone] Aleshia Leonard MD [address] [place] [address] MARIA VICTORIA@[facility] AscAoAneurysm Graft Replacement 05/03/2025 1:30 PM EST Office Visit [facility] Cardiology [address] [place] [address] Bryn Dominguez MD [address] [place] [address] [email or web address] Scheduled Procedures [...] on filedocumented in this encounter Care Teams School Photograph Editor Relationship Specialty Start Date End Date Carolina Madison MD [address] [facility] [place] [address] PCP - General Internal Medicine 12/10/24 Aleshia Leonard MD [address] [place] [address] MARIA VICTORIA@[facility] Thoracic Surgery 01/26/25 Bryn Dominguez MD [address] [place] [address], [facility] [place] [address] [email or web address] Cardiology 02/25/25 documented as of this encounter Additional Source Comments The information contained in this document represents components of the legal health record. It is not the complete legal health record.[facility]
--- OUTSIDE RECORDS SUMMARY | 2025-03-22 16:38 | XMS_ITS | Encounter Summary ---
Author Organization [facility] Address [address] [facility] [address] [place] [address] Phone Care Team Providers Care Dean Of Education Name Role Phone Carolina Madison MD Primary Care Provider [phone] Aleshia Leonard MD Unavailable [phone] Bryn Dominguez MD Unavailabl e Encounter Details Date Type Department Care Team (Late st Contact Info) Description 02/09/2025 Procedure Pass [facility] Endoscopy [address] [place] [address] Social History Tobacco Use Types Packs/Day Years [...] st Contact Info) Description 03/25/2025 Procedure Pass [facility] PERIOPER[facility]IVE DEPT [address] [place] [address] 03/25/2025 7:30 AM EDT Hospital Encounter [facility] PERIOPERATIVE DEPT [address] [place] [address] Aleshia Leonard MD [address] [place] [address] MARIA VICTORIA@[facility] 03/25/2025 7:30 AM EDT - 03/25/2025 6:42 PM EDT Surgery [facility] PERIOPERATIVE DEPT [address] [place] [phone] Aleshia Leonard MD [address] [place] [address] MARIA VICTORIA@[facility] AscAoAneurysm Graft Replacement 05/03/2025 1:30 PM EST Office Visit [facility] Cardiology [address] [place] [address] Bryn Dominguez MD [address] [place] [address] [place] [address] [email or web address] Scheduled Procedures Name Priority Associated Diagnoses [...] on filedocumented in this encounter Care Teams Dean Of Education Relationship Specialty Start Date End Date Carolina [place] MD [address] [facility] [place] [address] PCP - General Internal Medicine 12/10/24 Aleshia Leonard MD [address] [place] [address] MARIA VICTORIA@[facility].[place] Thoracic Surgery 01/26/25 Bryn Dominguez MD [address] [place] [address], [place] [address] [email or web address] Cardiology 02/25/25 documented as of this encounter Additional Source Comments The information contained in this document represents components of the legal health record. It is not the complete legal health record.[facility]
--- OUTSIDE RECORDS SUMMARY | 2025-03-22 16:38 | XMS_ITS | Encounter Summary ---
Author Organization [facility] Address [address] [place] [address] [place] [address] Phone Care Team Providers Care Ice Cutter Name Role Phone Carolina Madison MD Primary Care Provider [phone] Aleshia Leonard MD Unavailable [phone] Bryn Dominguez MD Unavailabl e Encounter Details Date Type Department Care Team (Late st Contact Info) Description 01/19/2025 Procedure Pass [facility] Imaging - MRI, Main [place] [address] [phone] Social History Tobacco Use Types Packs/Day Years [...] st Contact Info) Description 03/25/2025 Procedure Pass [facility] PERIOPER[facility]IVE DEPT [address] [place] [address] 03/25/2025 7:30 AM EDT Hospital Encounter [facility] PERIOPER[facility]IVE DEPT [address] [place] [address] Aleshia Leonard MD [address] [place] [address] MARIA VICTORIA@[facility] 03/25/2025 7:30 AM EDT - 03/25/2025 6:42 PM EDT Surgery [facility] PERIOPER[facility]IVE DEPT [address] [place] [address] Aleshia Leonadr MD [address] [place] [address] MARIA VICTORIA@[facility] AscAoAneurysm Graft Replacement 05/03/2025 1:30 PM EST Office Visit [facility] Cardiology [address] [place] [address] Bryn Dominguez MD 19 [place] [address] [email or web address] Scheduled Procedures Name Priority Associated Diagnoses [...] on filedocumented in this encounter Care Teams Ice Cutter Relationship Specialty Start Date End Date Carolina [place] MD [address] [place] [address] PCP - General Internal Medicine 12/10/24 Aleshia Leonard MD [address] [place] [address] MARIA VICTORIA@[facility] Thoracic Surgery 01/26/25 Bryn Dominguez MD [address] [place] [address], [facility] [place] [address] [email or web address] Cardiology 02/25/25 documented as of this encounter Additional Source Comments The information contained in this document represents components of the legal health record. It is not the complete legal health record.[facility]
--- OUTSIDE RECORDS SUMMARY | 2025-03-22 16:38 | XMS_ITS | Encounter Summary ---
Author Organization [facility] Address [address] [facility] [address] [place] [address] Phone Care Team Providers Care Derivatives Trader Name Role Phone Carolina Madison MD Primary Care Provider [phone] Aleshia Leonard MD Unavailable [phone] Bryn Dominguez MD Unavailabl e Encounter Details Date Type Department Care Team (Late st Contact Info) Description 03/12/2025 Orders Only [facility] EKG LAB VIRTUAL DEPARTMENT [address] [place] [address] [phone] Tasneem Cuevas [address] [place] [phone] [email or web address] Preop cardiovascular exam Social [...] st Contact Info) Description 03/25/2025 Procedure Pass [facility] PERIOPERATIVE DEPT [address] [place] [phone] 03/25/2025 7:30 AM EDT Hospital Encounter [facility] PERIOPERATIVE DEPT [address] [place] [phone] Aleshia Leonard MD [address] [place] [address] MARIA VICTORIA@[email or web address] 03/25/2025 7:30 AM EDT - 03/25/2025 6:42 PM EDT Surgery [facility] PERIOPERATIVE DEPT [address] [place] [phone] Aleshia Leonard MD [address] [place] [address] MARIA VICTORIA@[facility] AscAoAneurysm Graft Replacement 05/03/2025 1:30 PM EST Office Visit [place] [address] Bryn Dominguez MD [address] [facility], [facility] [place] [address] [email or web address] Scheduled Procedures Name [...] BPM [facility] Atrial Rate 51 BPM [facility] AZ Interval 200 ms [facility] QRS Duration 102 ms [facility] QT Interval 512 ms [facility] QTC Interval 471 ms [facility] P [place] 32 degrees [facility] R Wave [place] -15 degrees [facility] T Wave [place] 9 degrees [facility] 03/12/2025 4:03 PM EDT 03/16/2025 12:09 AM EDT Narrative [facility] - 03/16/2025 12:09 AM EDT LOC: [facility] - CADIAC SURG DX: PRE-OP REF: IDA SWEETIE - SUPERVISING BROKER SINUS BRADYCARDIA POOR R WAVE PROGRESSION NO PREVIOUS ECGS AVAILABLE us Ida Tate SUPERVISING BROKER ECG ORDERABLES Final Result [facility] documented in this encounter Visit Diagnoses Diagnosis Preop cardiovascular exam Pre-operative cardiovascular examination Aortic valve insufficiency, etiology of cardiac valve disease unspecified Ascending aortic aneurysm, unspecified whether ruptured Atrial fibrillation, unspecified type documented in this encounter Care Teams Derivatives Trader Relationship Specialty Start Date End Date Carolina [place] MD [address] [facility] [place] [address] PCP - General Internal Medicine 12/10/24 Aleshia Leonard MD [address] [place] [address] MARIA VICTORIA@[facility] Thoracic Surgery 01/26/25 Bryn Dominguez MD [address] [place] [address] [email or web address] Cardiology 02/25/25 documented as of this encounter Additional Source Comments The information contained in this document represents components of the legal health record. It is not the complete legal health record.[facility]
--- OUTSIDE RECORDS SUMMARY | 2025-03-22 16:38 | XMS_ITS | Encounter Summary ---
Author Organization [facility] Address [address] [place] [address] [place] [address] Phone Care Team Providers Care Gem Carver Name Role Phone Carolina [place] MD Primary Care Provider Aleshia Leonard MD Unavailable [phone] Bryn Dominguez MD Unavailabl e Encounter Details Date Type Department Care Team (Late st Contact Info) Description 01/19/2025 Procedure Pass [facility] Imaging - MRI, Main [place] [address] [phone] Social History Tobacco Use Types Packs/Day Years [...] st Contact Info) Description 03/25/2025 Procedure Pass [facility] PERIOPERATIVE DEPT [address] [place] [address] 03/25/2025 7:30 AM EDT Hospital Encounter [facility] PERIOPERATIVE DEPT [address] [place] [address] Aleshia Leonard MD [address] [place] [address] MARIA VICTORIA@[facility] 03/25/2025 7:30 AM EDT - 03/25/2025 6:42 PM EDT Surgery [facility] PERIOPERATIVE DEPT [address] [place] [address] Aleshia Leonard MD [address] [place] [address] MARIA VICTORIA@[facility] AscAoAneurysm Graft Replacement 05/03/2025 1:30 PM EST Office Visit [facility] Cardiology [address] [place] [address] Bryn Dominguez MD 19 [place] [address] [email or web address] Scheduled Procedures Name Priority Associated Diagnoses [...] on filedocumented in this encounter Care Teams Gem Carver Relationship Specialty Start Date End Date Carolina [place] MD [address] [place] [address] PCP - General Internal Medicine 12/10/24 Aleshia Leonard MD [address] [place] [address] MARIA VICTORIA@[facility] Thoracic Surgery 01/26/25 Bryn Dominguez MD [address] [place] [address], [facility] [place] [address] [email or web address] Cardiology 02/25/25 documented as of this encounter Additional Source Comments The information contained in this document represents components of the legal health record. It is not the complete legal health record.[facility]
--- OUTSIDE RECORDS SUMMARY | 2025-03-22 16:38 | XMS_ITS | Encounter Summary ---
Author Organization [facility] Address [address] [facility] [address] [place] [address] Phone Care Team Providers Care Sweatband Perforator Name Role Phone Carolina Madison MD Primary Care Provider [phone] Aleshia Leonard MD Unavailable [phone] Bryn Dominguez MD Unavailabl e Encounter Details Date Type Department Care Team (Late st Contact Info) Description 02/12/2025 Procedure Pass [facility] Cardiology Referral Images [address] [place] [address] Social History Tobacco Use Types Packs/Day Years [...] st Contact Info) Description 03/25/2025 Procedure Pass [facility] PERIOPERATIVE DEPT [address] [place] [phone] 03/25/2025 7:30 AM EDT Hospital Encounter [facility] PERIOPERATIVE DEPT [address] [place] [phone] Aleshia Leonard MD [address] [place] [address] MARIA VICTORIA@[facility] 03/25/2025 7:30 AM EDT - 03/25/2025 6:42 PM EDT Surgery [facility] PERIOPERATIVE DEPT [address] [place] [phone] Aleshia Leonard MD [address] [place] [address] MARIA VICTORIA@[facility] AscAoAneurysm Graft Replacement 05/03/2025 1:30 PM EST Office Visit [facility] Cardiology [address] [place] [address] Bryn Dominguez MD [address] [place] [address] [email or web address] Scheduled Procedures [...] on filedocumented in this encounter Care Teams Sweatband Perforator Relationship Specialty Start Date End Date Carolina [place] MD [address] [facility] [place] [address] PCP - General Internal Medicine 12/10/24 Aleshia Leonard MD [address] [place] [address] MARIA VICTORIA@[facility].[place] Thoracic Surgery 01/26/25 Bryn Dominguez MD [address] [place] [address], [facility] [place] [address] [email or web address] Cardiology 02/25/25 documented as of this encounter Additional Source Comments The information contained in this document represents components of the legal health record. It is not the complete legal health record.[facility]
--- OUTSIDE RECORDS SUMMARY | 2025-03-22 16:39 | XMS_ITS | Encounter Summary ---
Author Organization [facility] Address [address] [facility] [address] [place] [address] Phone Care Team Providers Care Local Driver Name Role Phone Carolina Madison MD Primary Care Provider [phone] Aleshia Leonard MD Unavailable [phone] Bryn Dominguez MD Unavailabl e Encounter Details Date Type Department Care Team (Late Contact Info) Description 12/22/2024 Procedure Pass [facility] Cardiology Referral Images [address] [place] [address] Social History Tobacco Use Types Packs/Day Years [...] (Late Contact Info) Description 03/25/2025 Procedure Pass [facility] PERIOPERATIVE DEPT [address] [place] [address] 03/25/2025 7:30 AM EDT Hospital Encounter [facility] PERIOPERATIVE DEPT [address] [place] [address] Aleshia Leonard MD [address] [address] MARIA VICTORIA@[facility] 03/25/2025 7:30 AM EDT - 03/25/2025 6:42 PM EDT Surgery [facility] PERIOPERATIVE DEPT [address] [place] [address] Aleshia Leonard MD [address] [address] MARIA VICTORIA@[facility] AscAoAneurysm Graft Replacement 05/03/2025 1:30 PM EST Office Visit [facility] Cardiology 19 [place] [address] Bryn Dominguez MD 19 [place] [address] [email or web address] [facility] Scheduled Procedures Name Priority Associated Diagnoses Date/Ti [...] on filedocumented in this encounter Care Teams Local Driver Relationship Specialty Start Date End Date Carolina [place] MD [address] [place] [address] PCP - General Internal Medicine 12/10/24 Aleshia Leonard MD [address] [place] [address] MARIA VICTORIA@[facility] Thoracic Surgery 01/26/25 Bryn Dominguez MD [address] [place] [address] [email or web address] Cardiology 02/25/25 documented as of this encounter Additional Source Comments The information contained in this document represents components of the legal health record. It is not the complete legal health record.[facility]
--- OUTSIDE RECORDS SUMMARY | 2025-03-22 16:39 | XMS_ITS | Encounter Summary ---
Author Organization [facility] Address [address] [facility] [address] [place] [address] Phone Care Team Providers Care Tap And Die Maker Technician Name Role Phone Carolina [place] MD Primary Care Provider [phone] Aleshia Leonard MD Unavailable [phone] Bryn Dominguez MD Unavailabl e Encounter Details Date Type Department Care Team (Late st Contact Info) Description 12/22/2024 Telephone [facility] Division of Cardiac Surgery [address] [facility]th [address], [address] [place] [address] Aleshia Leonard MD [address] [place] [address] [address] [place] [address] MARIA VICTORIA@[facility] Social History Tobacco Use Types Packs/Day [...] Contact Info) Description 03/25/2025 Procedure Pass [facility] PERIOPERATIVE DEPT [address] [place] [address] 03/25/2025 7:30 AM EDT Hospital Encounter [facility] PERIOPERATIVE DEPT [address] [place] [address] Aleshia Leonard MD [address] [address] MARIA VICTORIA@[facility] 03/25/2025 7:30 AM EDT - 03/25/2025 6:42 PM EDT Surgery [facility] PERIOPERATIVE DEPT [address] [place] [address] Aleshia Leonard MD [address] [address] MARIA VICTORIA@[facility] AscAoAneurysm Graft Replacement 05/03/2025 1:30 PM EST Office Visit [facility] Cardiology [address] [place] [address] Bryn Dominguez MD 19 [place] [address] [email or web address] Scheduled Procedures Name Priority Associated Diagnoses [...] on filedocumented in this encounter Care Teams Tap And Die Maker Technician Relationship Specialty Start Date End Date Carolina [place] MD [address] [place] [address] PCP - General Internal Medicine 12/10/24 Aleshia Leonard MD [address] [place] [address] MARIA VICTORIA@[facility] Thoracic Surgery 01/26/25 Bryn Dominguez MD [address] [place] [address], [place] [address] [email or web address] Cardiology 02/25/25 documented as of this encounter Additional Source Comments The information contained in this document represents components of the legal health record. It is not the complete legal health record.[facility]
--- OUTSIDE RECORDS SUMMARY | 2025-03-22 16:39 | XMS_ITS | Clinical Summary ---
Author Organization [facility] Address [address] [place] [address] Care Team Providers Care Literature Professor Name Role Phone Josias Rivers MD Primary Care Provider [phone] Source Comments PLEASE NOTE, if this patient [...] of Treatment Not on file Care Teams Literature Professor Relationship Specialty Start Date End Date Josias Rivers MD [address] [place] [phone] PCP - General Internal Medicine 04/26/15
--- OUTSIDE RECORDS SUMMARY | 2025-03-22 16:39 | XMS_ITS | Encounter Summary ---
Author Organization [facility] Address [address] [facility] [address] [place] [address] Phone Care Team Providers Care Solar Pool Heating Installer Name Role Phone Carolina Madison MD Primary Care Provider [phone] Aleshia Leonard MD Unavailable [phone] Bryn Dominguez MD Unavailabl e Encounter Details Date Type Department Care Team (Late st Contact Info) Description 01/18/2025 Procedure Pass [facility] Cath/EP Lab [address] [place] [address] Social History Tobacco Use Types Packs/Day Years [...] 03/25/2025 Procedure Pass [facility] PERIOPERATIVE DEPT [address] [place] [address] 03/25/2025 7:30 AM EDT Hospital Encounter [facility] [address] [place] [address] Aleshia Leonard MD [address] [address] MARIA [email or web address] 03/25/2025 7:30 AM EDT - 03/25/2025 6:42 PM EDT Surgery [facility] [address] [place] [address] Aleshia Leonard MD [address] [address] MARIA [email or web address] AscAoAneurysm Graft Replacement 05/03/2025 1:30 PM EST Office Visit [facility] Cardiology [address] [place] [address] Bryn Dominguez MD 19 [place] [address] [email or web address] Scheduled Procedures Name Priority Associated [...] on filedocumented in this encounter Care Teams Solar Pool Heating Installer Relationship Specialty Start Date End Date Carolina Madison MD [address] [place] [place] [address] PCP - General Internal Medicine 12/10/24 Aleshia Leonard MD [address] [place] [address] MARIA [email or web address] Thoracic Surgery 01/26/25 Bryn Dominguez MD [address] [place] [address] [place] [address] [email or web address] Cardiology 02/25/25 documented as of this encounter Additional Source Comments The information contained in this document represents components of the legal health record. It is not the complete legal health record.[facility]
--- OUTSIDE RECORDS SUMMARY | 2025-03-22 16:39 | XMS_ITS | Clinical Summary ---
Author Organization [facility] Address 175 [place] [address] Phone Care Team Providers Care Dental Office Manager Name Role Phone Wisam Taylor MD Primary Care Provider [phone] Allergies No known active allergies Medications amLODIPine-olme [...] crush or chew. 30 each 3 12/21/2024 12/22/19 26 Active docusate sodium (Colace) 100 mg capsule Take 1 capsule (100 mg total) by mouth 2 (two) times a day. 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 Knee pain, left anterior 08/05/2017 FAUSTINO (obstructive sleep apnea) 08/05/2017 Displacement of lumbar inter vertebral disc without myelopathy 10/01/2012 Radiculitis, lumbosacral 10/01/2012 Breast cancer ([facility] V24, [facility] V28) 010 Overview (03/18/2025): Left Breast Tx lumpectomy and XRT 01/2010 Encounters Date Type Department Care Team Description 12/21/2024 9:50 AM EDT Consult Gastroenterology - [place] [facility] 175 [facility] [address] [place] [address] Hanna Jordan PA Gastroesophageal reflux disease without [...] Upcoming Encounters Date Type Department Care Team ([facility] st Contact Info) Description 03/24/2025 9:50 AM EDT Office Visit Gastroenterology - [place] [address] [facility] [address] [place] [phone] Hanna Jordan PA [address] [place] [address] Health Maintenance Due Date Last Done Comments [...] complete this topic Insurance MEDICARE Care Teams Dental Office Manager Relationship Specialty Start Date End Date Wisam Taylor MD [address] [place] [id number] PCP - General Internal Medicine 09/11/12
== END 2025-03-22 14:29 | disposition home or self-care (01) ==
LOC: HO.HKA 14:06
PROVIDERS: PCP Internal Medicine; Visit Provider Internal Medicine Hypertension Specialist
DX: I12.9 Hypertensive chronic kidney disease with stage 1 through stage 4 chronic kidney disease, or unspecified chronic kidney disease (principal); N18.4 Chronic kidney disease, stage 4 (severe)
CPT/HCPCS: 99214

== ENCOUNTER → 2025-03-22 14:05 | Outpatient (BNVA) | payer MEDICARE, SELFPAY | PROVIDERS: PCP Internal Medicine; Visit Provider Internal Medicine Hypertension Specialist | DX: I12.9 Hypertensive chronic kidney disease with stage 1 through stage 4 chronic kidney disease, or unspecified chronic kidney disease (principal); N18.4 Chronic kidney disease, stage 4 (severe) | CPT/HCPCS: 99212 ==

== ENCOUNTER → 2025-04-06 23:59 | Outpatient (BNV) | payer MEDICARE, SELFPAY | PROVIDERS: PCP Internal Medicine; Visit Provider Internal Medicine | DX: I12.9 Hypertensive chronic kidney disease with stage 1 through stage 4 chronic kidney disease, or unspecified chronic kidney disease (principal); I48.91 Unspecified atrial fibrillation; N17.9 Acute kidney failure, unspecified; N18.4 Chronic kidney disease, stage 4 (severe) | CPT/HCPCS: G0180 ==

== ENCOUNTER 2025-04-13 10:28 | Outpatient (AMB) | payer MEDICARE, SELFPAY ==
[2025-04-13 10:33] VITALS: BP 132/62; PULSE 58; O2SAT 96; BMI 28.7
--- NOTE | 2025-04-13 10:33 | HO.NEPHOV ---
Vital Signs 04/13/25 10:33 Height 5 ft 3.2 in Weight 163 lb BMI 28.7 BP 132/62 Blood Pressure Location Lt brachial Position Sitting Pulse 58 Pulse Source Pulse Oximeter Pulse Oximetry (%) 96 Oxygen Delivery Method Room Air Intake Visit Reasons: [facility] F/U,confirmed Nurse First Assist Required: No Accompanied by: Daughter Allergies No Known Allergies Allergy (Verified 04/13/25 10:35) Medication List - Last Reconciled 04/13/25 by Jb Jerez MD amiodarone 200 mg PO DAILY citalopram 20 mg PO DAILY indapamide 1.25 mg PO QAM levothyroxine 75 mcg PO DAILY mecobalamin (vitamin B12) PO metoprolol succinate ER 12.5 mg PO DAILY warfarin 1 mg PO DAILY HPI Comments Details: - The patient is a 79-year-old female presenting with chronic kidney disease. - Chronic kidney disease with creatinine 1.78 and kidney function 27% as of November. - Preparing for aortic valve replacement surgery on March 25. - History of hypertension and atrial fibrillation, on amiodarone and Xarelto. - Past surgeries: breast, back, thyroidectomy. - Breast cancer treated 14 years ago with surgery and medications. - History of melanoma. - Reports edema, especially with socks. - Medications: amlodipine, Olmesartan, citalopram, indapamide, levothyroxine, vitamin B12. 03/22/25 Overall feels better after lowering Amlodipine/Olmesartan Occasional lightheadedness when she stands- for the past month or so. No syncope No edema 04/14/25 - The patient is a 79-year-old female presenting for follow-up regarding Chronic Kidney Disease. - Chronic Kidney Disease: Recent creatinine level of 2.14 mg/dL. - Ascending Aortic Aneurysm: History of aneurysm with graft replacement surgery. - Aortic Insufficiency: Underwent bioprosthetic valve replacement on March 25. - Atrial Fibrillation: On Coumadin for anticoagulation. - Anemia: Hemoglobin decreased to 8.7 g/dL, received transfusion. [facility] Medical History (Updated 04/07/25 @ 16:03 by Carolina Madison MD) Anxiety Bradycardia CKD (chronic kidney disease) stage 4, GFR 15-29 ml/min Sleep apnea Aortic regurgitation GERD (gastroesophageal reflux disease) A-fib HTN (hypertension) Surgical History (Updated 04/13/25 @ 10:35 by VIKI Barbosa) History of open heart surgery (~03/2025) Hx of thyroidectomy Hx of breast surgery History of back surgery Family History Father Hypertension Heart attack Mother No problems noted. Social History Household Members Other:: , lives in [place] for most of the year Housing: House Patient Tobacco Use Status: Former Tobacco user e-Cigarette/Vaping Use: Never Used service: No Current occupational status: retired Cognitive needs: No Hearing needs: No Vision needs: Yes Physical Exam Vital Signs: Last Vital Signs Pulse 58 04/13/25 10:33 BP 132/62 04/13/25 10:33 Pulse Ox 96 04/13/25 10:33 Oxygen Delivery Method Room Air 04/13/25 10:33 BMI result Body Mass Index 28.7 Physical Exam General: Awake. Comfortable. No orthostatic BP change HENT: Neck supple. Mucosa moist. Pulmonary: Lungs aeration equal. No rales. Cardiology: Heart S1-S2 heard. No gallop.Murmur + Abdomen: Soft. Non tender. Bowel sounds normal. Neurologic: No involuntary movements. No myoclonus. Losing balance, feels like being pulled to one side. Extremities: No edema Results Reviewed Results Reviewed: Apr 05, 2025 Cr 2.2 HgB 8.7 Nephrology Results: Hgb, (12.0-16.0) 12.6 g/dl 03/10/25 WBC, (4.8-10.8) 4.6 X10*3/uL L 03/10/25 Plt Count, (160-400) 244 X10*3/uL 03/10/25 Sodium, (135-145) 142 mmol/L 03/10/25 Potassium, (3.3-5.1) 4.3 mmol/L 03/10/25 Chloride, (96-108) 105 mmol/L 03/10/25 Carbon Dioxide, (22-29) 29 mmol/L 03/10/25 BUN, (9-16) 36 mg/dL H 03/20/25 Creatinine, (0.5-1.4) 2.18 mg/dL H 03/20/25 Calcium, (8.4-10.2) 9.0 mg/dL 03/10/25 Urine Protein, (Neg-Trace) Negative mg/dL 03/10/25 Urine Creatinine 90.77 mg/dL 03/10/25 Renal US 12/16/24 Assessment & Plan Assessment & Plan (1) HTN (hypertension): Code(s): I10 - Essential (primary) hypertension Category: Medical (2) CKD (chronic kidney disease) stage 4, GFR 15-29 ml/min: Code(s): N18.4 - Chronic kidney disease, stage 4 (severe) Category: Medical Plan 1. Chronic Kidney Disease Serum creatinine was 1.78 mg/dL with the an estimated GFR of 27 mL/minute in November of 2024 Urinalysis did not reveal any significant blood or protein. No casts. Renal ultrasonogram in December 2024 was unremarkable. Both kidneys appeared normal. No hydronephrosis. 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 - Avoid NSAIDs like Aleve, Advil, and Motrin. 2. H/o Hypertension BP at goal 3. Anemia Post Op Recheck HCT and Iron studies Orders: Orders Basic Metabolic Panel 1 Week N18.4 - Chronic kidney disease, stage 4 (severe) Complete Blood Count no Diff 1 Week N18.4 - Chronic kidney disease, stage 4 (severe) IRON PROFILE 1 Week N18.4 - Chronic kidney disease, stage 4 (severe) Ferritin 1 Week N18.4 - Chronic kidney disease, stage 4 (severe) Medications: New indapamide 1.25 mg PO QAM 30 tabs 1RF Coding Level of Care Code Est Pt Level 4 (22530) Diagnoses HTN (hypertension) I10 CKD (chronic kidney disease) stage 4, GFR 15-29 ml/min N18.4
--- OUTSIDE RECORDS SUMMARY | 2025-04-13 13:04 | XMS_ITS | Encounter Summary ---
Author Organization [facility] Address 399 [facility] [address] [place] [address] Phone Care Team Providers Care Supervisor Payroll Name Role Phone Carolina Madison MD Primary Care Provider [phone] Aleshia Leonard MD Unavailable [phone] Bryn Dominguez MD Unavailabl e Ivonne Chicas APRN Unavailable [phone] Encounter Details Date Type Department Care Team (Late st Contact Info) Description 01/19/2025 Procedure Pass [facility] Imaging - MRI, Main [place] [address] [place] [address] Social History Tobacco Use Types Packs/Day Years [...] Care Team (Late st Contact Info) Description 04/05/2025 Procedure Pass [facility] [place] [address] [facility], 6th [place] [address] 04/29/2025 1:30 PM EST Office Visit [facility] Cardiology [address] [place] [place] [address] 05/04/2025 8:15 AM EST Appointment [facility] [place] [address] [facility], 6th [place] [address] Aleshia Leonard MD 55 [facility] [address] [place] [address] MARIA VICTORIA@[email or web address] 05/04/2025 9:00 AM EST Office Visit [facility] Division of Cardiac Surgery 55 [facility], 6th Floor, [address] [place] [address] Aleshia Leonard MD 55 [facility] [address] [place] [address] MARIA VICTORIA@[email or web address] 06/29/2025 8:30 AM EST Office Visit [facility] Cardiovascular Medicine [address] [facility], 5th Floor, [address] [place] [address] Geronimo Thompson MD 55 [facility] [address] [place] [phone] GEORGINA@[email or web address] documented as of this encounter Visit Diagnoses Not on filedocumented in this encounter Additional Health Concerns Infection Onset Date Last Indicated Resolved Time CoV-Risk Comment:Per note documentation 03/28/2025 03/28/2025 9:57 AM EDT documented as of this encounter Care Teams Supervisor Payroll Relationship Specialty Start Date End Date Carolina Madison [place] [address] PCP - General Internal Medicine 12/10/24 Aleshia Leonard MD [address] [address] MARIA [email or web address] Thoracic Surgery 01/26/25 Bryn Dominguez MD 19 [place] [address] [email or web address] Cardiology 02/25/25 Ivonne Chicas APRN [address] [place] [address] [email or web address] Nurse Practitioner 04/06/25 documented as of this encounter Additional Source Comments The information contained in this document represents components of the legal health record. It is not the complete legal health record.[facility]
--- OUTSIDE RECORDS SUMMARY | 2025-04-13 13:04 | XMS_ITS | Encounter Summary ---
Author Organization [facility] Address [address] [facility] [address] [place] [address] Phone Care Team Providers Care Steam Cleaner Name Role Phone Carolina Madison MD Primary Care Provider [phone] Aleshia Leonard MD Unavailable [phone] Bryn Dominguez MD Unavailabl e LeaderIvonne APRN Unavailable [phone] Encounter Details Date Type Department Care Team (Late st Contact Info) Description 03/25/2025 Procedure Pass [facility]PT [address] [place] [phone] Social History Tobacco Use Types Packs/Day Years [...] as food, clothing, or medical care? No 03/28/2025 In the past 12 months have y ou been in a relationship with a person who hurts, threatens, or tries to control you? No 03/28/2025 Are you denied basic needs s uch as food, clothing, or medical care? No 03/28/2025 In the past 12 months have y ou been in a relationship with a person who hurts, threatens, or tries to control you? No 03/28/2025 Comments No Sex and Gender Information Value Date Recorded Sex Assigned at Not on file Legal Sex Female 6:46 PM EST Gender Identity Not on file Sexual Orientation Not on file documented as of this encounter Functional Status * Calculated C-SSRS Risk Score (Lifetime/Recent) Answer Date of Assessment Author No Risk Indicated 03/28/2025 8:00 AM EDT Debra Barnes RN * Morris Suicide Severity Rating Scale (Screener/Recent Self-Report) Question Answer Date of Assessment Author 1. Wish to be (Past 1 Month) No 03/28/2025 8:00 AM EDT Kaela Fagan, ALEXEY 2. Non-Specific Active Suicidal Thoughts (Past 1 Month) No 03/28/2025 8:00 AM EDT Kaela Fagan RN 6. Suicidal Behavior (Lifetime) No 03/28/2025 8:00 AM EDT Kaela Fagan RN documented as of this encounter Plan of Treatment Upcoming Encounters Date Type Department Care Team (Late st Contact Info) Description 04/05/2025 Procedure Pass [facility] for Outpatient Care - [place] [address] [place] [address], [address] [place] [address] 04/29/2025 1:30 PM EST Office Visit P Cardiology [address] [place] [address] 05/04/2025 8:15 AM EST Appointment [facility] for Outpatient Care - [place] 32 [facility], [address]th [place] [address] Aleshia Leonard MD [address] [facility] [address] [place] [address] MARIA [email or web address] 05/04/2025 9:00 AM EST Office Visit [facility] Division of Cardiac Surgery 55 [facility], 6th Floor, [address] [place] [address] Aleshia Leonard MD 55 [facility] 630 [place] [address] MARIA VICTORIA@[email or web address] 06/29/2025 8:30 AM EST Office Visit [facility] Cardiovascular Medicine [address] [facility], 5th Floor, [address] [place] [address] Geronimo Thompson MD 55 [facility] [address] [place] [phone] [email or web address]@[email or web address] documented as of this encounter Visit Diagnoses Not on filedocumented in this encounter Additional Health Concerns Infection Onset Date Last Indicated Resolved Time CoV-Risk Comment:Per note documentation 03/28/2025 03/28/2025 9:57 AM EDT documented as of this encounter Care Teams Steam Cleaner Relationship Specialty Start Date End Date Carolina Madison MD [address] [place] [address] PCP - General Internal Medicine 12/10/24 Aleshia Leonard MD [address] [address] MARIA [email or web address] Thoracic Surgery 01/26/25 Bryn Dominguez MD 19 [place] [address] [email or web address] Cardiology 02/25/25 Ivonne Chicas APRN 19 [place] [address] Nurse Practitioner 04/06/25 documented as of this encounter Additional Source Comments The information contained in this document represents components of the legal health record. It is not the complete legal health record.[facility]
--- OUTSIDE RECORDS SUMMARY | 2025-04-13 13:04 | XMS_ITS | Encounter Summary ---
Author Organization [facility] Address [address] [facility] [address] [place] [address] Phone Care Team Providers Care Real Time Trader Name Role Phone Carolina Madison MD Primary Care Provider [phone] Aleshia Leonard MD Unavailable [phone] Bryn Dominguez MD Unavailabl e LeaderIvonne APRN Unavailable [phone] Encounter Details Date Type Department Care Team (Late st Contact Info) Description 03/29/2025 Procedure Pass [facility] [address] [place] [address] Social History Tobacco Use Types Packs/Day Years [...] on file 12/22/2024 No 12/22/2024 No 12/22/2024 Food Answer Date Recorded Within the past 6 months we worried whether our food would run out before we got money to buy more. Unable to assess 025 Within the past 6 months the food we bought just didn't last and we didn't have enough money to get more. Unable to assess 03/31/2025 Residential Stability Answer Date Recor ded What is your housing situation today? Unable to assess 03/31/2025 How many times have you moved in the past 12 mon ths? Unable to assess 03/31/2025 Paying for Meds Answer Date Recorded Do you have trouble paying for medicines? Unable to assess 03/31/2025 Paying Utility Bills Answer Date Record ed Do you have trouble paying y our heating or electricity bill? Unable to assess 03/31/2025 Transportation Answer Date Recorded Has the lack of transportati on kept you from medical appointments or from getting medications? Unable to assess 03/31/2025 Digital Access Answer Date Recorded No 03/31/2025 No 03/31/2025 Do you have reliable internet access at home? Un able to assess 03/31/2025 Do you have a device (e.g., phone, tablet, computer) with a working camera? Unable to assess 03/31/2025 Intimate Partner Violence Answer Date R ecorded [...] st Contact Info) Description 04/05/2025 Procedure Pass [facility] for [facility]patient Care - [place] [address] [facility], 6th [place] [address] 04/29/2025 1:30 PM EST Office Visit [facility] Cardiology [address] [facility] [place] [address] 05/04/2025 8:15 AM EST Appointment [facility] for [facility] Care - [place] [address] [facility], 6th [place] [address] Aleshia Leonard MD 55 [facility] 630 [place] [address] MARIA [email or web address] 05/04/2025 9:00 AM EST Office Visit [facility] Division of Cardiac Surgery 55 [facility], 6th Floor, [address] [place] [address] Aleshia Leonard MD 55 [facility] 630 [place] [address] MARIAV ICTORIA@[email or web address] 06/29/2025 8:30 AM EST Office Visit [facility] Cardiovascular Medicine 32 [facility], 5th Floor, [address] [place] [address] Geronimo Thompson MD 55 [facility] [address] [place] [phone] [email or web address] documented as of this encounter Visit Diagnoses Not on filedocumented in this encounter Additional Health Concerns Infection Onset Date Last Indicated Resolved Time CoV-Risk Comment:Per note documentation 03/28/2025 03/28/2025 9:57 AM EDT documented as of this encounter Care Teams Real Time Trader Relationship Specialty Start Date End Date Carolina Madison MD [address] [place] [address] PCP - General Internal Medicine 12/10/24 Aleshia Leonard MD [address] [address] MARIA [email or web address] Thoracic Surgery 01/26/25 Bryn Dominguez MD 19 [place] [address] [email or web address] Cardiology 02/25/25 Leader, Ivonne London APRN 19 [place] [address] [email or web address] Nurse Practitioner 04/06/25 documented as of this encounter Additional Source Comments The information contained in this document represents components of the legal health record. It is not the complete legal health record.[facility]
--- OUTSIDE RECORDS SUMMARY | 2025-04-13 13:04 | XMS_ITS | Encounter Summary ---
Author Organization [facility] Address 399 [facility] [address] [place] [address] Phone Care Team Providers Care Package Center Supervisor Name Role Phone Carolina Madison MD Primary Care Provider [phone] Aleshia Leonard MD Unavailable [phone] Bryn Dominguez MD Unavailabl e Ivonne Chicas APRN Unavailable [phone] Encounter Details Date Type Department Care Team (Late st Contact Info) Description 01/19/2025 Procedure Pass [facility] Imaging - MRI, Main [place] [address] [place] [address] Social History Tobacco Use Types [...] st Contact Info) Description 04/05/2025 Procedure Pass [facility] for Outpatient Care - [place] 32 [facility], 6th [place] [address] 04/29/2025 1:30 PM EST Office Visit [facility]iology [address] [facility] [place] [address] 05/04/2025 8:15 AM EST Appointment [facility] for [facility] Care - [place] [address] [facility], 6th [place] [address] Aleshia Leonard MD 55 [facility] 630 [place] [address] MARIA VICTORIA@[email or web address] 05/04/2025 9:00 AM EST Office Visit [facility] Division of Cardiac Surgery 55 [facility], 6th Floor, [address] [place] [address] Aleshia Leonard MD 55 [facility] 630 [place] [address] MARIA VICTORIA@[email or web address] 06/29/2025 8:30 AM EST Office Visit [facility] Cardiovascular Medicine 32 [facility], 5th Floor, [address] [place] [address] Geronimo Thompson MD 55 [facility] [address] [place] [phone] GEORGINA@[email or web address] documented as of this encounter Visit Diagnoses Not on filedocumented in this encounter Additional Health Concerns Infection Onset Date Last Indicated Resolved Time CoV-Risk Comment:Per note documentation 03/28/2025 03/28/2025 9:57 AM EDT documented as of this encounter Care Teams Package Center Supervisor Relationship Specialty Start Date End Date Carolina Madison MD [place] [place] [address] PCP - General Internal Medicine 12/10/24 Aleshia Leonard MD [address] [address] MARIA [email or web address] Thoracic Surgery 01/26/25 Bryn Dominguez MD 19 [place] [address] [email or web address] Cardiology 02/25/25 Ivonne Chicas APRN [address] [place] [address] [email or web address] Nurse Practitioner 04/06/25 documented as of this encounter Additional Source Comments The information contained in this document represents components of the legal health record. It is not the complete legal health record.[facility]
--- OUTSIDE RECORDS SUMMARY | 2025-04-13 13:05 | XMS_ITS | Encounter Summary ---
Author Organization [facility] Address [address] [facility] [address] [place] [address] Phone Care Team Providers Care Cell Maker Name Role Phone Carolina Madison MD Primary Care Provider [phone] Aleshia Leonard MD Unavailable [phone] Bryn Dominguez MD Unavailabl e LeaderIvonne APRN Unavailable [phone] Encounter Details Date Type Department Care Team (Late st Contact Info) Description 03/25/2025 Procedure Pass [facility] [address] [place] [address] Social History Tobacco Use Types Packs/Day Years [...] 8:00 AM EDT Debra Barnes RN * [place] Suicide Severity Rating Scale (Screener/Recent Self-Report) Question Answer Date of Assessment Author 1. Wish to be (Past 1 Month) No 03/28/2025 8:00 AM EDT Kaela Fagan, ALEXEY 2. Non-Specific Active Suicidal Thoughts (Past 1 Month) No 03/28/2025 8:00 AM EDT Kaela Fagan, ALEXEY 6. Suicidal Behavior (Lifetime) No 03/28/2025 8:00 AM EDT Kaela Fagan, ALEXEY documented as of this encounter Plan of Treatment Upcoming Encounters Date Type Department Care Team (Late st Contact Info) Description 04/05/2025 Procedure Pass [facility] [place] 32 [facility], 6th [place] [address] 04/29/2025 1:30 PM EST Office Visit P Cardiology [address] [place] [address] 05/04/2025 8:15 AM EST Appointment [facility] [place] 32 [facility], 6th [place] [address] Aleshia Leonard MD [address] [facility] [address] [place] [address] MARIA VICTORIA@[email or web address] 05/04/2025 9:00 AM EST Office Visit [facility] Division of Cardiac Surgery 55 [facility], 6th Floor, [address] [place] [address] Aleshia Leonard MD 55 [facility] 630 [place] [address] MARIA VICTORIA@[facility] 06/29/2025 8:30 AM EST Office Visit [facility] Cardiovascular Medicine [address] [facility], 5th Floor, [address] [place] [address] Geronimo Thompson MD 55 [facility] [address] [place] [phone] GEORGINA@[email or web address] documented as of this encounter Visit Diagnoses Not on filedocumented in this encounter Additional Health Concerns Infection Onset Date Last Indicated Resolved Time CoV-Risk Comment:Per note documentation 03/28/2025 03/28/2025 9:57 AM EDT documented as of this encounter Care Teams Cell Maker Relationship Specialty Start Date End Date Carolina Madison MD [address] [place] [address] PCP - General Internal Medicine 12/10/24 Aleshia Leonard MD [address] [address] MARIA VICTORIA@[email or web address] Thoracic Surgery 01/26/25 Bryn Dominguez MD [address] [place] [address] [email or web address] Cardiology 02/25/25 Ivonne Chicas APRN [address] [place] [address] Nurse Practitioner 04/06/25 documented as of this encounter Additional Source Comments The information contained in this document represents components of the legal health record. It is not the complete legal health record.[facility]
--- OUTSIDE RECORDS SUMMARY | 2025-04-13 13:05 | XMS_ITS | Clinical Summary ---
Author Organization [facility] Address [address] [place] [address] Care Team Providers Care Special Assets Officer Name Role Phone Josias Rivers MD Primary [...] of Treatment Not on file Care Teams Special Assets Officer Relationship Specialty Start Date End Date Josias Rivers MD [address] [place] [phone] PCP - General Internal Medicine 04/26/15
--- OUTSIDE RECORDS SUMMARY | 2025-04-13 13:05 | XMS_ITS | Encounter Summary ---
Author Organization [facility] Address [address] [place] [address] [place] [address] Phone Care Team Providers Care Instructor Flying Name Role Phone Carolina Madison MD Primary Care Provider [phone] Aleshia Leonard MD Unavailable [phone] Bryn Dominguez MD Unavailabl e Ivonne Chicas APRN Unavailable [phone] Encounter Details Date Type Department Care Team (Late st Contact Info) Description 01/18/2025 Procedure Pass [facility] Cath/EP Lab [address] [place] [address] Social History Tobacco Use Types Packs/Day Years [...] st Contact Info) Description 04/05/2025 Procedure Pass [facility] - [place] 32 [facility], 6th [place] [address] 04/29/2025 1:30 PM EST Office Visit [facility] Cardiology [address] [place] [address] 05/04/2025 8:15 AM EST Appointment [facility] [place] 32 [facility], 6th [place] [address] Aleshia Leonard MD 55 [facility] [address] [place] [address] MARIA VICTORIA@[facility] 05/04/2025 9:00 AM EST Office [place] [facility] Division of Cardiac Surgery 55 [facility], 6th Floor, [address] [place] [address] Aleshia Leonard MD 55 [facility] [address] [place] [address] MARIA VICTORIA@[facility] 06/29/2025 8:30 AM EST Office Visit [facility] Cardiovascular Medicine 32 [facility], 5th Floor, [address] [place] [address] Geronimo Thompson MD 55 [facility] [address] [place] [phone] GEORGINA@[email or web address] documented as of this encounter Visit Diagnoses Not on filedocumented in this encounter Additional Health Concerns Infection Onset Date Last Indicated Resolved Time CoV-Risk Comment:Per note documentation 03/28/2025 03/28/2025 9:57 AM EDT documented as of this encounter Care Teams Instructor Flying Relationship Specialty Start Date End Date Carolina Madison MD [facility] [place] [address] PCP - General Internal Medicine 6/26/25 Aleshia Leonard MD [address] [place] [address] MARIA VICTORIA@[facility] Thoracic Surgery 01/26/25 Bryn Dominguez MD [address] [place] [address] [email or web address] Cardiology 02/25/25 Ivonne Chicas APRN [address] [place] [address] [email or web address] Nurse Practitioner 04/06/25 documented as of this encounter Additional Source Comments The information contained in this document represents components of the legal health record. It is not the complete legal health record.[facility]
--- OUTSIDE RECORDS SUMMARY | 2025-04-13 13:05 | XMS_ITS | Clinical Summary ---
Author Organization [facility] Address [address] [place] [address] Care Team Providers Care Electric Range Assembler Name Role Phone Nicolette Wilson DO Primary Care Provider [phone] Allergies No known active allergies Medications Medication [...] Mother Relation Name Status Comments Brother Father [place], CVD Maternal Cousin Breast Cance r Maternal [...] age to complete this topic Care Teams Electric Range Assembler Relationship Specialty Start Date End Date Nicolette Wilson DO PCP - General Family Medicine 07/16/17
--- OUTSIDE RECORDS SUMMARY | 2025-04-13 13:05 | XMS_ITS | Clinical Summary ---
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 Knee pain, left anterior 08/05/2017 FAUSTINO (obstructive sleep apnea) 08/05/2017 Displacement of lumbar inter vertebral disc without myelopathy 10/01/2012 Radiculitis, lumbosacral 10/01/2012 Breast cancer ([facility] V24, [facility] V28) 010 Overview (03/18/2025): Left Breast Tx lumpectomy and XRT 01/2010 Social History Tobacco Use Types Packs/Day Years [...] 12/21/2024 10:04 AM EDT Plan of Treatment Health Maintenance Due Date [...] complete this topic Insurance MEDICARE Care Teams Production Support Consultant Relationship Specialty Start Date End Date Wisam Taylor MD [address] [place] [address] PCP - General Internal Medicine 09/11/12
--- OUTSIDE RECORDS SUMMARY | 2025-04-13 13:05 | XMS_ITS | Encounter Summary ---
Author Organization [facility] Address [address] [facility] [address] [place] [address] Phone Care Team Providers Care Radiation Control Specialist Name Role Phone Carolina Madison MD Primary Care Provider [phone] Aleshia Leonard MD Unavailable [phone] Bryn Dominguez MD Unavailabl e Ivonne Chicas APRN Unavailable [phone] Encounter Details Date Type Department Care Team (Late st Contact Info) Description 02/12/2025 Procedure Pass [facility] Cardiology Referral Images [address] [place] [address] Social History Tobacco Use Types Packs/Day Years [...] st Contact Info) Description 04/05/2025 Procedure Pass [facility] - [place] 32 [facility], 6th [place] [address] 04/29/2025 1:30 PM EST Office Visit [facility] Cardiology 19 [place] [address] 05/04/2025 8:15 AM EST Appointment [facility] [place] [address] [facility], 6th [place] [address] Aleshia Leonard MD [address] [address] MARIA VICTORIA@[email or web address] 05/04/2025 9:00 AM EST Office Visit [facility] Division of Cardiac Surgery 55 [facility], 6th Floor, [address] [place] [address] Aleshia Leonard MD [address] [place] [address] MARIA VICTORIA@[email or web address] 06/29/2025 8:30 AM EST Office Visit [facility] Cardiovascular Medicine 32 [facility], 5th Floor, [address] [place] [address] Geronimo Thompson MD [address] [phone] GEORGINA@[email or web address] documented as of this encounter Visit Diagnoses Not on filedocumented in this encounter Additional Health Concerns Infection Onset Date Last Indicated Resolved Time CoV-Risk Comment:Per note documentation 03/28/2025 03/28/2025 9:57 AM EDT documented as of this encounter Care Teams Radiation Control Specialist Relationship Specialty Start Date End Date Carolina Madison MD [address] [place] [address] PCP - General Internal Medicine 12/10/24 Aleshia Leonard MD [address] [place] [address] MARIA VICTORIA@[email or web address] Thoracic Surgery 01/26/25 Bryn Dominguez MD 19 [place] [address] [email or web address] Cardiology 02/25/25 Ivonne Chicas APRN [address] [place] [address] [email or web address] Nurse Practitioner 04/06/25 documented as of this encounter Additional Source Comments The information contained in this document represents components of the legal health record. It is not the complete legal health record.[facility]
--- OUTSIDE RECORDS SUMMARY | 2025-04-13 13:05 | XMS_ITS | Encounter Summary ---
Author Organization [facility] Address [address] [facility] [address] [place] [address] Phone Care Team Providers Care Loom Fixer Name Role Phone Carolina Madison MD Primary Care Provider [phone] Aleshia Leonard MD Unavailable [phone] Bryn Dominguez MD Unavailabl e Ivonne Chicas APRN Unavailable [phone] Reason for Visit * Reason Comments Anticoagulation Encounter Details Date Type Department Care Team (Late st Contact Info) Description 04/08/2025 Telephone [facility] Anticoagulation Clinic [address] [place] [address] Ivonne Chicas APRN 19 [facility] [place] [address] [email or web address] Anticoagulation Social History Tobacco Use Types Packs/Day Years Used Date Smoking Tobacco: Former Cigarettes 0.5 38 1 966 - 2004 Smokeless Tobacco: Never Comments:Quit 25 years ago Alcohol Use Standard Drinks/Week Comments Yes 2 (1 standard drink = 0.6 oz pur e alcohol) occasionally Education Answer Date Recorded Are you interested [...] on file documented as of this encounter Progress Notes * Arpita Murillo, CHASE - 04/08/2025 3:02 PM EDT Called and spoke with daughter, Maciel, gave coumadin regimen and recheck date. She told me vna going on . Asked Ivonne if recheck date can move to and keep 1 mg warfarin. Given the OK. Called and spoke with Boom Rudd gave coumadin regimen and recheck date. Called [phone] * Ivonne Chicas APRN - 04/08/2025 1:46 PM EDT INR today is therapeutic at 2.1. Patient was established as a new patient in our office on 04/06/25 for anticoagulation management. Patient resides in [place] and is living with her daughter Maciel in [facility] [place] for a few months before going back to [place]. Continue on warfarin 1 mg daily. Recheck INR on Saturday04/12/25. documented in this encounter Plan of Treatment Upcoming Encounters Date Type Department Care Team (Late st Contact Info) Description 04/05/2025 Procedure Pass [facility] - [place] [address] [place] [address], [address] [place] [address] 04/29/2025 1:30 PM EST Office Visit [facility] Cardiology [address] [place] [address] 05/04/2025 8:15 AM EST Appointment [facility] Out[facility] - [place] [address] [place] [address], [address] [place] [address] Aleshia Leonard MD [address] [place] [address] MARIA VICTORIA@[email or web address] 05/04/2025 9:00 AM EST Office Visit [facility] Division of Cardiac Surgery [address] [place] [address], [address]th [facility], [address] [place] [address] Aleshia Leonard MD [address] [place] [address] MARIA VICTORIA@[email or web address] 06/29/2025 8:30 AM EST Office Visit [facility] Cardiovascular Medicine 32 [facility], 5th Floor, [address] [place] [address] Geronimo Thompson MD [address] [place] [phone] GEORGINA@[email or web address] documented as of this encounter Procedures Procedure Name Priority Date/Time Associated Diagnosis Comments PT-INR Routine 04/08/2025 documented in this encounter Results * PT-INR (04/08/2025) External Or Transcribed PT-INR 2.1 us Historical Provider LAB BLOOD ORDERABLES Jessica l Result documented in this encounter Visit Diagnoses Diagnosis Atrial fibrillation- Primary intermediate teacher (current) use of anticoagulants Long-term (current) use of anticoagulants documented in this encounter Care Teams Loom Fixer Relationship Specialty Start Date End Date Carolina Madison MD [address] [place] [address] PCP - General Internal Medicine 12/10/24 Aleshia Leonard MD [address] [address] MARIA VICTORIA@[email or web address] Thoracic Surgery 01/26/25 Bryn Dominguez MD 19 [place] [address] [email or web address] Cardiology 02/25/25 Ivonne Chicas APRN [address] [place] [address] [email or web address] Nurse Practitioner 04/06/25 documented as of this encounter Additional Source Comments The information contained in this document represents components of the legal health record. It is not the complete legal health record.[facility]
--- OUTSIDE RECORDS SUMMARY | 2025-04-13 13:05 | XMS_ITS | Encounter Summary ---
Author Organization [facility] Address [address] [facility] [address] [place] [address] Phone Care Team Providers Care Molder Pipe Covering Name Role Phone Carolina Madison MD Primary Care Provider [phone] Aleshia Leonard MD Unavailable Bryn Dominguez MD Unavailabl e Ivonne Chicas APRN Unavailable [phone] Encounter Details Date Type Department Care Team (Late st Contact Info) Description 02/09/2025 Procedure Pass [facility] Cath/EP Lab [address] [place] [address] Social History Tobacco Use Types [...] st Contact Info) Description 04/05/2025 Procedure Pass [facility] Care - [place] 32 [facility], [address]th [place] [address] 04/29/2025 1:30 PM EST Office Visit [facility] Cardiology [address] [place] [address] 05/04/2025 8:15 AM EST Appointment [facility] - [place] [address] [facility], [address]th [place] [address] Aleshia Leonard MD [address] [address] MARIA VICTORIA@[facility] 05/04/2025 9:00 AM EST Office [facility] Division of Cardiac Surgery 55 [facility], 6th Floor, [address] [place] [address] Aleshia Leonard MD [address] [place] [address] MARIA VICTORIA@[facility] 06/29/2025 8:30 AM EST Office Visit [facility] Cardiovascular Medicine 32 [facility], 5th Floor, [address] [place] [address] Geronimo Thompson MD [address] [phone] GEORGINA@[email or web address] documented as of this encounter Visit Diagnoses Not on filedocumented in this encounter Additional Health Concerns Infection Onset Date Last Indicated Resolved Time CoV-Risk Comment:Per note documentation 03/28/2025 03/28/2025 9:57 AM EDT documented as of this encounter Care Teams Molder Pipe Covering Relationship Specialty Start Date End Date Carolina Madison MD [address] [place] [address] PCP - General Internal Medicine 12/10/24 Aleshia Leonard MD [address] [place] [address] MARIA VICTORIA@[facility] Thoracic Surgery 01/26/25 Bryn Dominguez MD 19 [place] [address] [email or web address] Cardiology 02/25/25 Ivonne Chicas APRN [address] [place] [address] [email or web address] Nurse Practitioner 04/06/25 documented as of this encounter Additional Source Comments The information contained in this document represents components of the legal health record. It is not the complete legal health record.[facility]
--- OUTSIDE RECORDS SUMMARY | 2025-04-13 13:05 | XMS_ITS | Encounter Summary ---
Author Organization [facility] Address [address] [facility] [address] [place] [address] Phone Care Team Providers Care Grievance Manager Name Role Phone Carolina Madison MD Primary Care Provider [phone] Aleshia Leonard MD Unavailable Bryn Dominguez MD Unavailabl e Ivonne Chicas APRN Unavailable [phone] Encounter Details Date Type Department Care Team (Late st Contact Info) Description 12/22/2024 Procedure Pass [facility] Cardiology Referral Images [address] [place] [address] Social History Tobacco Use Types Packs/Day Years [...] Department Care Team (Late Contact Info) Description 04/05/2025 Procedure Pass [facility] - [place] [address] [facility], 6th [place] [address] 04/29/2025 1:30 PM EST Office Visit [facility] Cardiology [address] [place] [address] 05/04/2025 8:15 AM EST Appointment [facility] - [place] 32 [facility], 6th [place] [address] Aleshia Leonard MD 55 [facility] [address] [place] [address] MARIA VICTORIA@[facility] 05/04/2025 9:00 AM EST Office Visit [facility] Division of Cardiac Surgery 55 [facility], 6th Floor, [address] [place] [address] Aleshia Leonard MD [address] [address] MARIA VICTORIA@[facility] 06/29/2025 8:30 AM EST Office Visit [facility] Cardiovascular Medicine 32 [facility], 5th Floor, [address] [place] [address] Geronimo Thompson MD [address] [phone] GEORGINA@[facility] documented as of this encounter Visit Diagnoses Not on filedocumented in this encounter Additional Health Concerns Infection Onset Date Last Indicated Resolved Time CoV-Risk Comment:Per note documentation 03/28/2025 03/28/2025 9:57 AM EDT documented as of this encounter Care Teams Grievance Manager Relationship Specialty Start Date End Date Carolina Madison MD [address] [place] [address] PCP - General Internal Medicine 12/10/24 Aleshia Leonard MD [address] [address] MARIA VICTORIA@[email or web address] Thoracic Surgery 01/26/25 Bryn Dominguez MD [address] [place] [address] Cardiology 02/25/25 Ivonne Chicas APRN [address] [place] [address] [email or web address] Nurse Practitioner 04/06/25 documented as of this encounter Additional Source Comments The information contained in this document represents components of the legal health record. It is not the complete legal health record.[facility]
--- OUTSIDE RECORDS SUMMARY | 2025-04-13 13:05 | XMS_ITS | Encounter Summary ---
Author Organization [facility] Address [address] [place] [address] Phone Care Team Providers Care Palaeontologist Name Role Phone Carolina Madison MD Primary Care Provider [phone] Aleshia Leonard MD Unavailable [phone] Bryn Dominguez MD Unavailabl e LeaderIvonne APRN Unavailable [phone] Encounter Details Date Type Department Care Team (Late st Contact Info) Description 12/22/2024 Telephone [facility] Division of Cardiac Surgery [address], 6th [address], [address] [place] [address] Aleshia Leonard MD [address] [facility] [address] [place] [address] MARIA [email or web address] Social History Tobacco Use Types Packs/Day [...] st Contact Info) Description 04/05/2025 Procedure Pass [facility] for Outpatient Care - [place] [address] [facility], 6th [place] [address] 04/29/2025 1:30 PM EST Office Visit [facility] Cardiology [address] [address] 05/04/2025 8:15 AM EST Appointment [facility] Outpatient Care - [place] [address] [facility], 6th [place] [address] Aleshia Leonard MD [address] [facility] [address] [place] [address] MARIA VICTORIA@[email or web address] 05/04/2025 9:00 AM EST Office Visit [facility] Division of Cardiac Surgery [address] 6th [address], [address] [place] [address] Aleshia Leonard MD [address] [facility] [address] [place] [address] MARIA VICTORIA@[email or web address] 06/29/2025 8:30 AM EST Office Visit [facility] Cardiovascular Medicine [address] [facility], 5th Floor, [address] [place] [address] Geronimo Thompson MD [address] [facility] [address] [place] [phone] [email or web address] documented as of this encounter Visit Diagnoses Not on filedocumented in this encounter Additional Health Concerns Infection Onset Date Last Indicated Resolved Time CoV-Risk Comment:Per note documentation 03/28/2025 03/28/2025 9:57 AM EDT documented as of this encounter Care Teams Palaeontologist Relationship Specialty Start Date End Date Carolina Madison MD [facility] [place] [address] PCP - General Internal Medicine 12/10/24 Aleshia Leonard MD [address] [place] [address] MARIA [email or web address] Thoracic Surgery 01/26/25 Bryn Dominguez MD 19 [place] [address] Cardiology 02/25/25 Ivonne Chicas APRN [address] [place] [address] Nurse Practitioner 04/06/25 documented as of this encounter Additional Source Comments The information contained in this document represents components of the legal health record. It is not the complete legal health record.[facility]
--- OUTSIDE RECORDS SUMMARY | 2025-04-13 13:05 | XMS_ITS | Encounter Summary ---
Author Organization [facility] Address [address] [facility] [facility] [address] [place] [address] Phone Care Team Providers Care Pneumatic Tool Repairer Name Role Phone Carolina Madison MD Primary Care Provider [phone] Aleshia Leonard MD Unavailable [phone] Bryn Dominguez MD Unavailabl e Ivonne Chicas APRN Unavailable [phone] Encounter Details Date Type Department Care Team (Late st Contact Info) Description 02/12/2025 Procedure Pass [facility] Cardiology Referral Images [address] [place] [address] Social History Tobacco Use Types Packs/Day Years [...] Services for Outpatient Care - CT [address] [facility], [address]th [place] [address] 04/29/2025 1:30 PM EST Office Visit [facility] Cardiology 19 [place] [address] 05/04/2025 8:15 AM EST Appointment [facility] for Outpatient Care - [place] [address] [facility], [address] [place] [address] Aleshia Leonard MD [address] [address] MARIA VICTORIA@[email or web address] 05/04/2025 9:00 AM EST Office Visit [facility] Division of Cardiac Surgery [address] [facility], 6th Floor, [address] [place] [address] Aleshia Leonard MD [address] [place] [address] MARIA VICTORIA@[email or web address] 06/29/2025 8:30 AM EST Office Visit [facility] Cardiovascular Medicine [address] [facility], 5th Floor, [address] [place] [address] Geronimo Thompson MD [address] [phone] [email or web address] documented as of this encounter Visit Diagnoses Not on filedocumented in this encounter Additional Health Concerns Infection Onset Date Last Indicated Resolved Time CoV-Risk Comment:Per note documentation 03/28/2025 03/28/2025 9:57 AM EDT documented as of this encounter Care Teams Pneumatic Tool Repairer Relationship Specialty Start Date End Date Carolina Madison MD [address] [place] [address] PCP - General Internal Medicine 12/10/24 Aleshia Leonard MD [address] [place] [address] MARIA [email or web address] Thoracic Surgery 01/26/25 Bryn Dominguez MD 19 [place] [address] [email or web address] Cardiology 02/25/25 Ivonne Chicas APRN 19 [place] [address] Nurse Practitioner 04/06/25 documented as of this encounter Additional Source Comments The information contained in this document represents components of the legal health record. It is not the complete legal health record.[facility]
--- OUTSIDE RECORDS SUMMARY | 2025-04-13 13:05 | XMS_ITS | Encounter Summary ---
Author Organization [facility] Address [address] [facility] [address] [place] [address] Phone Care Team Providers Care Water Treatment Plant Engineer Name Role Phone Carolina Madison MD Primary Care Provider [phone] Aleshia Leonard MD Unavailable [phone] Bryn Dominguez MD Unavailabl e Ivonne Chicas APRN Unavailable [phone] Reason for Visit * Reason Comments Anticoagulation Encounter Details Date Type Department Care Team (Late st Contact Info) Description 04/13/2025 Telephone [facility] Anticoagulation Clinic [address] [place] [address] Ivonne Chicas APRN [address] [facility] [place] [address] Anticoagulation Social History Tobacco Use Types Packs/Day [...] of this encounter Progress Notes * Arpita Murillo CMA - 04/13/2025 10:55 AM EDT Called and spoke with daughter, gave coumadin regimen and recheck date. Called and spoke with Ed, amedysis vna, gave coumadin regimen and recheck date. * Ivonne Chicas APRN - 04/13/2025 10:13 AM EDT INR today is therapeutic at 2.0. Patient was established as a new patient in our office on 04/06/25 for anticoagulation management. Patient resides in [place] and is living with her daughter Maciel in [facility] for a few months before going back to [place]. INR trending down. Take warfarin 1.5 mg Tues and 1 mg all other days. Recheck INR on Saturday04/19/25. documented in this encounter Plan of Treatment Upcoming Encounters Date Type Department Care Team (Late st Contact Info) Description 04/05/2025 Procedure Pass [facility] for Outpatient Care - CT [address] [facility], [address] [place] [address] 04/29/2025 1:30 PM EST Office Visit [facility] Cardiology [address] [place] [address] 05/04/2025 8:15 AM EST Appointment [facility] for Outpatient Care - [place] [address] [facility], [address] [place] [address] Aleshia Leonard MD [address] [address] MARIA [email or web address] 05/04/2025 9:00 AM EST Office Visit [facility] Division of Cardiac Surgery [address] [facility], 6th Floor, [address] [place] [address] Aleshia Leonard MD [address] [address] MARIA [email or web address] 06/29/2025 8:30 AM EST Office Visit [facility] Cardiovascular Medicine [address] [facility], 5th [address], [address] [place] [address] Geronimo Magdaleno MD [address] [place] [phone] [email or web address] documented as of this encounter Procedures Procedure Name Priority Date/Time Associated Diagnosis Comments PT-INR Routine 04/13/2025 documented in this encounter Results * PT-INR (04/13/2025) External Or Transcribed PT-INR 2.0 us Historical Provider LAB BLOOD ORDERABLES Jessica l Result documented in this encounter Visit Diagnoses Diagnosis Atrial fibrillation- Primary intermediate (current) use of anticoagulants Long-term (current) use of anticoagulants documented in this encounter Care Teams Water Treatment Plant Engineer Relationship Specialty Start Date End Date Carolina Madison MD [address] [place] [address] PCP - General Internal Medicine 12/10/24 Aleshia Leonard MD [address] [place] [address] MARIA VICTORIA@[email or web address] Thoracic Surgery 01/26/25 Bryn Dominguez MD 19 [place] [address] [email or web address] Cardiology 02/25/25 Ivonne Chicas APRN 19 [place] [address] [email or web address] Nurse Practitioner 04/06/25 documented as of this encounter Additional Source Comments The information contained in this document represents components of the legal health record. It is not the complete legal health record.[facility]
--- OUTSIDE RECORDS SUMMARY | 2025-04-13 13:06 | XMS_ITS | Clinical Summary ---
Author Organization [facility] Address [address] [place] [id number] Phone Care Team Providers Care Bung Remover Name Role Phone Carolina Madison MD Primary Care Provider Aleshia Leonard MD Unavailable [phone] Bryn Dominguez MD Unavailabl e Ivonne Chicas APRN Unavailable [phone] Allergies Active Allergy Reactions Criticality Noted Date Comments Spice Flavor Throat Tightness Medium 02/16/2025 Griffin Shortness Of Breath High 04/06/2025 Medications amiodarone (PACERONE) 200 MG tablet Take 200 mg by mouth daily. Active citalopram (CELEXA) 20 MG tablet Take 20 mg by mouth daily. Active indapamide (LOZOL) 1.25 mg tablet Take 1.25 mg by mouth every morning. Active levothyroxine (SYNTHROID, LEVOTHROID) 75 MCG tablet Take 75 mcg by mouth every morning. Active acetaminophen (TYLENOL) 325 mg tablet Take 2 tablets (650 mg total) by mouth every 6 (six) hours as needed for pain (specific location in comments). 5 Active aspirin 325 MG tablet Take 1 tablet (325 mg total) by mouth daily. 30 tablet 2 5 Active metoprolol succinate (TOPROL-XL) 25 MG 24 hr tablet Take 0.5 tablets (12.5 mg total) by mouth nightly at bedtime. 15 tablet 2 Active polyethylene glycol (MIRALAX) 17 gram packet Take 17 g by mouth daily as needed for mild constipation. 15 packet Active warfarin (COUMADIN) 1 MG tablet Take 0.5-1 tablets (0.5-1 mg total) by mouth daily. Take daily as instructed by [facility] clinic 150 tablet Active cyanocobalamin , vitamin B-12, 100 MCG tablet Take 100 mcg by mouth daily. Active cholecalcifero l (VITAMIN D3) 400 unit tablet Take 400 Units by mouth daily. Active Medication-Nathan e Text Probiotic takes daily Active amLODIPine-olm esartan (ALEXIS) 10-20 mg per tablet Take 1 tablet by mouth daily. 04/05/20 Discontinu ed(Stop Taking at Discharge) rivaroxaban (XARELTO) 15 mg Tab Take 15 mg by mouth daily with dinner. 04/05/20 Discontinu ed(Stop Taking at Discharge) Active Problems Problem Noted Date Diagnosed Date correction (current) use of anticoagulants 2024 Assessment & Plan (04/06/2025 12:18 PM EDT): Continue anticoagulation for atrial fibrillation On warfarin with INR Range 2.0-3.0 for 3 months per [facility] Cardio Surgery Dr Leonard (Started warfarin 03/26/25) Anticoagulation now managed by our office, [facility] Anticoagulation Clinic [phone] Confirmed patient has 1 mg tablets at home. No warfarin refill prescription needed at this time and patient is aware to call our office when one is needed INR yesterday was therapeutic at 2.3. Take warfarin 1 mg /Sat Next INR due 04/08/25 INR standing orders entered in chart and will be faxed to the following labs: [facility] [address] [phone] FAX [phone] [facility] [phone] Confirmed phone #[phone] (dtr Maciel) to be used when calling with anticoag instructions. Added this marketing underwriter's name to Care Team Encounter for education 04/06/2025 Assessment & Plan (04/06/2025 12:13 PM EDT): New patient appointment for warfarin education. Discussed how to take Warfarin, bleeding risks, potential medication interaction and effects if Vitamin K. AVS with warfarin information provided. Aortic valve stenosis with i nsufficiency, etiology of cardiac valve disease unspecified 03/25/2025 S/P cardiac cath 02/09/2025 Aneurysm of ascending aorta without rupture 09/2024 Atrial fibrillation 01/18/2025 Assessment & Plan (04/06/2025 12:13 PM EDT): Continue anticoagulation with warfarin INR goal 2.0-3.[address] Glez [facility] Cardiology Hypertensive disorder 01/18/2025 Severe aortic regurgitation 01/18/2025 On amiodarone therapy 01/18/2025 Stage 4 chronic kidney disease 01/18/2025 Postoperative hypothyroidism 01/18/2025 Encounters Date Type Department Care Team Description 04/13/2025 Telephone [facility] Anticoagulation Clinic [address] [place] [address] Ivonne Chicas APRN Anticoagulation 04/08/2025 Telephone [facility] Anticoagulation Clinic [address] [place] [address] Ivonne Chicas APRN Anticoagulation 04/07/2025 Orders Only [facility] Division of Cardiac Surgery [address] [facility], 6th Floor, [address] [place] [address] Aleshia Leonard MD 04/07/2025 Transcribe Orders [facility] [address] [place] [address], 5th [place] [address] Carolina Madison MD Dysphagia, unspecified type (Primary Dx) 04/06/2025 10:00 AM EDT Telemedicine - audio only [facility] Cardiology [place] [address] [place] [id number] Leader, Ivonne London APRN correction (current) use of anticoagulants (Primary Dx); Atrial fibrillation, unspecified type; Encounter for education 04/02/2025 Telephone [facility] Cardiology [address] [facility] [place] [address] Fallon Rodriguez RN 04/01/2025 8:25 AM EDT Ancillary Procedure [facility] Imaging Bedside Ultrasound VRT [address] [place] [address] Dayana Hodgson MD Kreso, Antonia, MD 03/29/2025 Procedure Pass [facility] Cardiac US [address] [place] [address] 03/28/2025 11:35 AM EDT Ancillary Procedure [facility] Imaging Bedside Ultrasound VRT [address] [place] [address] Juju Sibley, Aleshia Joe MD 03/25/2025 7:32 AM EDT Anesthesia Event [facility] PERIOPERATIVE DEPT [address] [place] [address] Say Mayo MD Jan, Kathryn Michelle, MD, MPH 03/25/2025 7:30 AM EDT - 03/25/2025 6:42 PM EDT Surgery [facility] PERIOPERATIVE DEPT [address] [place] [address] Aleshia Leonard MD ASCENDING AORTIC ANEURYSM GRAFT REPLACEMENT, PFO CLOSURE 03/25/2025 7:15 AM EDT Ancillary Procedure [facility] Imaging Bedside Ultrasound VRT [address] [place] [address] Say Mayo MD Kreso, Antonia, MD 03/25/2025 6:30 AM EDT Ancillary Procedure [facility] Imaging Bedside Ultrasound VRT [address] [place] [address] Say Mayo MD Kreso, Antonia, MD 03/25/2025 5:41 AM EDT - 04/05/2025 12:21 PM EDT Hospital Encounter [facility] [address] [place] [address] Aleshia Leonard MD Discharge Disposition: Home-Health Care [facility] 03/25/2025 Procedure Pass [facility] Cardiac US [address] [place] [address] 03/25/2025 Procedure Pass [facility] PERIOPERATIVE DEPT [address] [place] [address] 03/24/2025 Documentation [facility] Division of Cardiac Surgery [address] [place] [address], 6th Floor, [address] [place] [address] Shilpa Hummel RN 03/12/2025 3:49 PM EDT - 03/12/2025 11:59 PM EDT Hospital Encounter [facility] Antoni - Emmanuel Berger 2 [address] [facility], 2nd [place] [address] Lea, Sothea, OBSTETRICAL TECH Discharge Disposition: Home or Self Care 03/12/2025 3:29 PM EDT - 03/12/2025 3:48 PM EDT Hospital Encounter [facility] PATHOLOGY ACC2 [address] [facility] [place] [address] Aleshia Leonard MD Discharge Disposition: Home or Self Care 03/12/2025 2:15 PM EDT - 03/12/2025 3:28 PM EDT Hospital Encounter [facility] Pulmonary and Critical Care Unit [address] [facility], 2nd Floor, [address] [place] [address] Aleshia Leonard MD Discharge Disposition: Home or Self Care 03/12/2025 1:00 PM EDT Pre-Admission Testing [facility] Division of Cardiac Surgery [address] [place] [address], 6th Floor, [address] [place] [address] Aleshia Leonard MD Preop cardiovascular exam (Primary Dx); Abnormal finding of blood chemistry, unspecified 03/12/2025 Orders Only [facility] EKG LAB VIRTUAL DEPARTMENT [address] [place] [address] Tasneem Cuveas Preop cardiovascular exam 03/08/2025 Orders Only [facility] Division of Cardiac Surgery [address] [facility], 6th Floor, [address] [place] [address] Lea, Sothea, OBSTETRICAL TECH SOB (shortness of breath) (Primary Dx) 02/25/2025 Documentation [facility] Division of Cardiac Surgery [address] [place] [address], 6th Floor, [address] [place] [address] Lea, Sothea, OBSTETRICAL TECH 02/22/2025 Telephone [facility] Division of Cardiac Surgery [address] [place] [address], 6th Floor, [address] [place] [address] Aleshia Leonard MD 02/17/2025 9:38 PM EDT - 02/17/2025 11:59 PM EDT Hospital Encounter [facility] Imaging - MRI, [address] [place] [address] [place] [address] Bryn Dominguez MD Discharge Disposition: Home or Self Care 02/16/2025 1:45 PM EDT Office Visit [facility] Division of Cardiac Surgery [address] [facility], 6th Floor, [address] [place] [address] Aleshia Leonard MD Aneurysm of ascending aorta without rupture (Primary Dx) 02/12/2025 1:20 PM EDT Office Visit [facility] Cardiology Referral Images [address] [facility] [address] [place] [address] [facility] Ad[facility], Provider 02/12/2025 1:15 PM EDT Office Visit [facility] Cardiology Referral Images [address] [facility] [address] [place] [address] [facility] Ad[facility], Provider Diagnosis unknown 02/12/2025 1:10 PM EDT Office Visit [facility] Cardiology Referral Images [address] [facility] [address] [place] [address] [facility] Ad[facility], Provider Diagnosis unknown 02/12/2025 Procedure Pass [facility] Cardiology Referral Images [address] [facility] [address] [place] [address] 02/12/2025 Procedure Pass [facility] Cardiology Referral Images [address] [facility] [address] [place] [address] 02/12/2025 Orders Only [facility] Cardiovascular Medicine [address] [facility], 5th Floor, [address] [place] [address] Unknown, Jose J, Diagnosis unknown (Primary Dx) 02/12/2025 Documentation [facility] Division of Cardiac Surgery [address] [facility], 6th Floor, [address] [place] [address] Olivier Tate FNP 02/10/2025 Ancillary Orders [facility] [place] [facility] [address] [place] [address] Aleshia Leonard MD 02/09/2025 11:55 AM EDT - 02/09/2025 12:39 PM EDT Surgery [facility] Endoscopy [address] [place] [address] Anastacio Yuen MD TRANSESOPHAGEAL ECHOCARDIOGRAM 02/09/2025 11:39 AM EDT Anesthesia Event [facility] Endoscopy [address] [place] [address] Candido Pryor MD Allen, George Kenton, MD 02/09/2025 9:35 AM EDT - 02/09/2025 11:59 PM EDT Hospital Encounter [facility] Cath/EP Lab [address] [place] [address] Bryn Dominguez MD Discharge Disposition: Home or Self Care 02/09/2025 8:00 AM EDT - 02/09/2025 9:30 AM EDT Surgery [facility] Cath/EP Lab [address] [place] [address] Bryn Dominguez MD Right and Left Heart Catheterization with possible LVGRAM 02/09/2025 7:16 AM EDT - 02/09/2025 1:55 PM EDT Hospital Encounter [facility] Endoscopy [address] [place] [address] Bryn Dominguez MD Discharge Disposition: Home or Self Care 02/09/2025 Procedure Pass [facility] Endoscopy [address] [place] [address] 02/09/2025 Procedure Pass [facility] Cath/EP Lab [address] [place] [address] 01/25/2025 Telephone [facility] Cardiology [address] [place] [address] Vanessa Galicia, CARLYN Referral 01/19/2025 Procedure Pass [facility] Imaging - [facility], [address] [place] [address] [place] [address] 01/19/2025 Procedure Pass [facility] Imaging - [facility], [facility] [address] [place] [address] 01/19/2025 Telephone [facility] Cardiology [address] [facility] [place] [address] Fallon Newberry RN CTA of Aorta 01/19/2025 Documentation [facility] Cardiology Virtual Department [address] [facility] [place] [address] Bryn Dominguez MD 01/18/2025 1:00 PM EDT Office Visit [facility] Cardiology [address] [place] [address] Bryn Dominguez MD Aneurysm of ascending aorta without rupture (Primary Dx); Severe aortic regurgitation; Hypertensive disorder; Atrial fibrillation, unspecified type; On amiodarone therapy; Postoperative hypothyroidism; Stage 4 chronic kidney disease; Preoperative cardiovascular examination 01/18/2025 Procedure Pass [facility] Cath/EP Lab [address] [facility] [place] [address] from Last 3 Months Immunizations Immunization Administration Dates Next Due Influenza High-Dose Trivalent Preservative Free IM 04/05/2025 Family History Medical History Relation Comments No [...] have you moved in the past 12 sat ths? Unable to assess 03/31/2025 Paying for [...] Sign Reading Time Taken Comments Blood Pressure 112/53 04/05/2025 10:56 AM EDT Pulse 60 04/05/2025 10:56 AM EDT Temperature 36.8 C (98.2 F) 04/05/2025 10:56 AM EDT Respiratory Rate 18 04/05/2025 10:56 AM EDT Oxygen Saturation 90% 04/05/2025 10:56 AM EDT Inhaled Oxygen Concentration 50% 04/01/2025 1 :17 PM EDT Weight 74.8 kg (165 lb) 04/05/2025 5:00 AM EDT Height 157.5 cm (5' 2 ) 03/25/2025 5:00 PM EDT Body Mass Index 30.18 03/25/2025 5:00 PM EDT Plan of Treatment Upcoming Encounters Date Type Department Care Team (Late st Contact Info) Description 04/05/2025 Procedure Pass [facility] [address] [facility], 6th [place] [address] 04/29/2025 1:30 PM EST Office Visit [facility] Cardiology [address] [place] [address] 05/04/2025 8:15 AM EST Appointment [facility] [address] [facility], 6th [place] [address] Aleshia Leonard MD [address] [facility] [address] [place] [address] [email or web address] 05/04/2025 9:00 AM EST Office Visit [facility] Division of Cardiac Surgery [address] [facility], 6th Floor, [address] [place] [address] Aleshia Leonard MD [address] [facility] [address] [place] [address] [email or web address] 06/29/2025 8:30 AM EST Office Visit [facility] Cardiovascular Medicine [address] [facility], 5th Floor, [address] [place] [address] Geronimo Thompson MD [address] [facility] [address] [place] [phone] [email or web address] Health Maintenance Due Date Last Done Comments Adult Td,Tdap Booster 1945 DEPRESSION SCREENING 1957 HEPATITIS C SCREENING 09/04/1963 ZOSTER VACCINES (1 of 2) 09/04/1995 OSTEOPOROSIS SCREENING INITIAL (ONE-TIME) 2010 PNEUMOCOCCAL VACCINES (50+ years) (2 of 2 - PPSV23) 11/16/2017 09/21/2017 RSV VACCINE (1 - 1-dose 75+ series) 2020 COVID-19 VACCINE (1 - 2024- season) 2025 BLOOD PRESSURE 08/16/2025 02/16/2025 LIPID PANEL 01/18/2026 01/18/2025 TSH LEVEL 01/18/2026 01/18/2025 ALT LEVEL (ALANINE AMINOTRANSFERASE) 04/02/2026 04/02/2025, 04/01/2025, 03/31/2025, Additional history exists POTASSIUM LEVEL 04/05/2026 04/05/2025, 03/17, 04/03/2025, Additional history exists INFLUENZA VACCINE Completed 04/05/2025, 06/06/2017 SMOKING STATUS SCREENING (Once After 26 Yrs) Completed 04/06/2025 HEPATITIS A VACCINES Aged Out No long [...] age to complete this topic Medical Devices Implanted Type Area Trust And Estates Attorney Device Identifier Shelf Expiration Date Model / Serial / Lot Valve Heart 21mm Perimount Magna Ease Bioprosthesis [place] Aortic Pericardial Thermafix - [id number] Implanted:Qty: 1 on 03/25/2025 by Aleshia Leonard MD at [facility] BONETISSUE N/A: Heart [employer] 11/27/2027 [id number] / [id number] / N/A Graft Vascular [id number] Vascutek Gelweave Polyester Woven Straight Aortic - [id number] Implanted:Qty: 1 on 03/25/2025 by Aleshia Leonard MD at [facility] SMDA N/A: Aorta [employer] 01/15/2028 [id number] / [id number] / [id number] Device Clip 35mmatriclip Flex V Jamee Malleable Shaft Sterile - [id number] Implanted:Qty: 1 on 03/25/2025 by Aleshia Leonard MD at [facility] N/A: Heart [employer] 11/16/2027 [id number] / [id number] Procedures Procedure Name Priority Date/Time Associated Diagnosis Comments PT-INR Routine 04/13/2025 PT-INR Routine 04/08/2025 PREPARE RBC Routine 04/06/2025 12:37 AM EDT POCT GLUCOSE Routine 04/05/2025 8:02 AM EDT TYPE AND SCREEN (ABO,RH,ANTIBODY SCREEN) Routine 04/05/2025 5:36 AM EDT CBC Routine 04/05/2025 5:36 AM EDT BASIC METABOLIC PANEL Routine 04/05/2025 5:36 AM EDT PT-INR Routine 04/05/2025 5:36 AM EDT MAGNESIUM Routine 04/05/2025 5:36 AM EDT POCT GLUCOSE Routine 04/04/2025 8:05 PM EDT OSMOLALITY (URINE, RANDOM) Routine 04/04 6:29 PM EDT SODIUM, RANDOM URINE Routine 04/04/2025 6:29 PM EDT POCT GLUCOSE Routine 04/04/2025 5:36 PM EDT POCT GLUCOSE Routine 04/04/2025 12:16 PM EDT TRANSFUSE RED BLOOD CELLS Routine 2024 11:55 AM EDT POCT GLUCOSE Routine 04/04/2025 8:02 AM EDT CBC Routine 04/04/2025 6:18 AM EDT BASIC METABOLIC PANEL Routine 04/04/2025 6:18 AM EDT PT-INR Routine 04/04/2025 6:18 AM EDT MAGNESIUM Routine 04/04/2025 6:18 AM EDT POCT GLUCOSE Routine 04/03/2025 9:06 PM EDT POCT GLUCOSE Routine 04/03/2025 5:10 PM EDT XR CHEST PA AND LATERAL 2 VIEWS Imaging in AM 04/03/2025 1:27 PM EDT POCT GLUCOSE Routine 04/03/2025 12:06 PM EDT POCT GLUCOSE Routine 04/03/2025 8:09 AM EDT CBC Routine 04/03/2025 5:03 AM EDT BASIC METABOLIC PANEL Routine 04/03/2025 5:03 AM EDT PT-INR Routine 04/03/2025 5:03 AM EDT MAGNESIUM Routine 04/03/2025 5:03 AM EDT POCT GLUCOSE Routine 04/02/2025 8:59 PM EDT POCT GLUCOSE Routine 04/02/2025 5:39 PM EDT POCT GLUCOSE Routine 04/02/2025 11:34 AM EDT POCT GLUCOSE Routine 04/02/2025 8:28 AM EDT CREAT. COMMENT Routine 04/02/2025 4:33 AM EDT BASIC METABOLIC PANEL Routine 04/02/2025 4:33 AM EDT CREAT. COMMENT Routine 04/02/2025 12:34 AM EDT PTT Routine 04/02/2025 12:34 AM EDT PT-INR Routine 04/02/2025 12:34 AM EDT CBC Routine 04/02/2025 12:34 AM EDT BASIC METABOLIC PANEL Routine 04/02/2025 12:34 AM EDT MAGNESIUM Routine 04/02/2025 12:34 AM EDT PHOSPHORUS Routine 04/02/2025 12:34 AM EDT LFTS (HEPATIC PANEL) Routine 04/02/2025 12:34 AM EDT LACTIC ACID (LACTATE) Routine 04/02/2025 12:34 AM EDT POCT GLUCOSE Routine 04/01/2025 10:27 PM EDT XR CHEST PORTABLE Timed 04/01/2025 10:13 PM EDT POCT GLUCOSE Routine 04/01/2025 5:44 PM EDT POCT GLUCOSE Routine 04/01/2025 4:58 PM EDT CREAT. COMMENT Routine 04/01/2025 4:55 PM EDT PHOSPHORUS Routine 04/01/2025 4:55 PM EDT MAGNESIUM Routine 04/01/2025 4:55 PM EDT BASIC METABOLIC PANEL Routine 04/01/2025 4:55 PM EDT POTASSIUM (BLOOD GAS) STAT 04/01/2025 12:48 PM EDT GLUCOSE (BLOOD GAS) STAT 04/01/2025 12:48 PM EDT SEROLOGY COMMENT Routine 04/01/2025 11:43 AM EDT RESPIRATORY PATHOGEN PCR PANEL Routine 1 11:43 AM EDT MICROBIOLOGY ADD ON Routine 04/01/2025 10:52 AM EDT POCT GLUCOSE Routine 04/01/2025 9:20 AM EDT CREAT. COMMENT Routine 04/01/2025 9:00 AM EDT PHOSPHORUS Routine 04/01/2025 9:00 AM EDT MAGNESIUM Routine 04/01/2025 9:00 AM EDT BASIC METABOLIC PANEL Routine 04/01/2025 9:00 AM EDT CYSTATIN C Routine 04/01/2025 9:00 AM EDT US BEDSIDE Routine 04/01/2025 8:20 AM EDT POCT GLUCOSE Routine 04/01/2025 3:49 AM EDT XR CHEST PORTABLE Routine 04/01/2025 3:35 AM EDT CREAT. COMMENT Routine 04/01/2025 3:35 AM EDT MAGNESIUM Routine 04/01/2025 3:35 AM EDT PT-INR Routine 04/01/2025 3:35 AM EDT PTT Routine 04/01/2025 3:35 AM EDT CREATININE (RANDOM URINE) Routine 2024 3:35 AM EDT UREA NITROGEN, RANDOM URINE Routine 03/17 3:35 AM EDT BASIC METABOLIC PANEL Routine 04/01/2025 3:35 AM EDT POCT GLUCOSE Routine 04/01/2025 2:47 AM EDT LACTATE (BLOOD GAS) Routine 04/01/2025 2:42 AM EDT GLUCOSE (BLOOD GAS) STAT 04/01/2025 2:42 AM EDT POCT GLUCOSE Routine 04/01/2025 1:31 AM EDT CREAT. COMMENT Routine 04/01/2025 12:58 AM EDT PHOSPHORUS Routine 04/01/2025 12:58 AM EDT MAGNESIUM Routine 04/01/2025 12:58 AM EDT BASIC METABOLIC PANEL Routine 04/01/2025 12:58 AM EDT TYPE AND SCREEN (ABO,RH,ANTIBODY SCREEN) Routine 04/01/2025 12:35 AM EDT CREAT. COMMENT Routine 04/01/2025 12:22 AM EDT CBC Routine 04/01/2025 12:22 AM EDT PT-INR Routine 04/01/2025 12:22 AM EDT PTT Routine 04/01/2025 12:22 AM EDT BASIC METABOLIC PANEL Routine 04/01/2025 12:22 AM EDT MAGNESIUM Routine 04/01/2025 12:22 AM EDT PHOSPHORUS Routine 04/01/2025 12:22 AM EDT LFTS (HEPATIC PANEL) Routine 04/01/2025 12:22 AM EDT LACTATE (BLOOD GAS) Routine 04/01/2025 12:21 AM EDT GLUCOSE (BLOOD GAS) STAT 04/01/2025 12:21 AM EDT POTASSIUM (BLOOD GAS) STAT 04/01/2025 12:21 AM EDT ECG 12-LEAD Routine 04/01/2025 12:11 AM EDT POCT GLUCOSE Routine 03/31/2025 11:56 PM EDT CREAT. COMMENT Routine 03/31/2025 11:56 PM EDT VENOUS BLOOD GAS PLUS Routine 03/31/2025 11:56 PM EDT PHOSPHORUS Routine 03/31/2025 11:56 PM EDT MAGNESIUM Routine 03/31/2025 11:56 PM EDT BASIC METABOLIC PANEL Routine 03/31/2025 11:56 PM EDT POTASSIUM (BLOOD GAS) STAT 03/31/2025 11:56 PM EDT IONIZED CALCIUM STAT 03/31/2025 11:56 PM EDT GLUCOSE (BLOOD GAS) STAT 03/31/2025 11:56 PM EDT POCT GLUCOSE Routine 03/31/2025 10:39 PM EDT CREAT. COMMENT Routine 03/31/2025 9:32 PM EDT BASIC METABOLIC PANEL Routine 03/31/2025 9:32 PM EDT POCT GLUCOSE Routine 03/31/2025 9:30 PM EDT POCT GLUCOSE Routine 03/31/2025 8:31 PM EDT CREAT. COMMENT Routine 03/31/2025 8:25 PM EDT PHOSPHORUS Routine 03/31/2025 8:25 PM EDT MAGNESIUM Routine 03/31/2025 8:25 PM EDT BASIC METABOLIC PANEL Routine 03/31/2025 8:25 PM EDT CREAT. COMMENT Routine 03/31/2025 3:50 PM EDT PHOSPHORUS Routine 03/31/2025 3:50 PM EDT MAGNESIUM Routine 03/31/2025 3:50 PM EDT BASIC METABOLIC PANEL Routine 03/31/2025 3:50 PM EDT VENOUS BLOOD GAS PLUS Routine 03/31/2025 3:46 PM EDT POCT GLUCOSE Routine 03/31/2025 12:25 PM EDT OXYGEN SATURATION, MIXED VENOUS Routine 03/31/2025 9:24 AM EDT VENOUS BLOOD GAS PLUS Routine 03/31/2025 9:24 AM EDT VENOUS BLOOD GAS PLUS Routine 03/31/2025 4:06 AM EDT OXYGEN SATURATION, MIXED VENOUS Routine 03/31/2025 4:06 AM EDT PTT Routine 03/31/2025 4:06 AM EDT PT-INR Routine 03/31/2025 4:06 AM EDT LFTS (HEPATIC PANEL) Routine 03/31/2025 12:10 AM EDT PHOSPHORUS Routine 03/31/2025 12:10 AM EDT MAGNESIUM Routine 03/31/2025 12:10 AM EDT BASIC METABOLIC PANEL Routine 03/31/2025 12:10 AM EDT CBC Routine 03/31/2025 12:10 AM EDT LACTATE (BLOOD GAS) Routine 03/31/2025 12:10 AM EDT OXYGEN SATURATION, MIXED VENOUS Routine 03/31/2025 12:10 AM EDT VENOUS BLOOD GAS PLUS Routine 03/31/2025 12:10 AM EDT XR CHEST PORTABLE Routine 03/30/2025 9:00 PM EDT OXYGEN SATURATION, MIXED VENOUS Routine 03/30/2025 8:18 PM EDT POCT GLUCOSE Routine 03/30/2025 8:00 PM EDT OXYGEN SATURATION, MIXED VENOUS Routine 03/30/2025 8:00 PM EDT LACTATE (BLOOD GAS) Routine 03/30/2025 8:00 PM EDT VENOUS BLOOD GAS PLUS Routine 03/30/2025 8:00 PM EDT POCT GLUCOSE Routine 03/30/2025 5:30 PM EDT MAGNESIUM Routine 03/30/2025 3:07 PM EDT VENOUS BLOOD GAS PLUS Routine 03/30/2025 3:07 PM EDT BASIC METABOLIC PANEL Routine 03/30/2025 3:07 PM EDT TTE COMPREHENSIVE W/ AGITATE D SALINE Routine 03/30/2025 2:30 PM EDT Acute right-sided heart failure US UPPER EXTREMITY VEINS DUPLEX COMPLETE (BILATERAL) Routine 03/30/2025 12:57 PM EDT Edema, unspecified type US LOWER EXTREMITY VEINS DUPLEX COMPLETE (BILATERAL) Routine 03/30/2025 12:57 PM EDT Edema, unspecified type LACTATE (BLOOD GAS) Routine 03/30/2025 12:37 PM EDT VENOUS BLOOD GAS PLUS Routine 03/30/2025 12:37 PM EDT LACTIC ACID (LACTATE) Routine 03/30/2025 8:48 AM EDT MAGNESIUM Routine 03/30/2025 8:48 AM EDT BASIC METABOLIC PANEL Routine 03/30/2025 8:48 AM EDT CBC Routine 03/30/2025 8:48 AM EDT PTT Routine 03/30/2025 5:36 AM EDT PT-INR Routine 03/30/2025 5:36 AM EDT ECG 12-LEAD Routine 03/30/2025 5:33 AM EDT LACTATE (BLOOD GAS) Routine 03/30/2025 2:45 AM EDT ARTERIAL BLOOD GAS PLUS Routine 03/30/20 2:45 AM EDT LFTS (HEPATIC PANEL) Routine 03/29/2025 11:43 PM EDT PHOSPHORUS Routine 03/29/2025 11:43 PM EDT MAGNESIUM Routine 03/29/2025 11:43 PM EDT BASIC METABOLIC PANEL Routine 03/29/2025 11:43 PM EDT CBC Routine 03/29/2025 11:43 PM EDT ARTERIAL BLOOD GAS PLUS Routine 03/29/20 10:05 PM EDT LACTATE (BLOOD GAS) Routine 03/29/2025 10:05 PM EDT XR CHEST PORTABLE Routine 03/29/2025 9:10 PM EDT ARTERIAL BLOOD GAS PLUS Routine 03/29/20 3:59 PM EDT LACTATE (BLOOD GAS) Routine 03/29/2025 3:59 PM EDT LFTS (HEPATIC PANEL) Routine 03/29/2025 3:59 PM EDT PHOSPHORUS Routine 03/29/2025 3:59 PM EDT MAGNESIUM Routine 03/29/2025 3:59 PM EDT BASIC METABOLIC PANEL Routine 03/29/2025 3:59 PM EDT CBC Routine 03/29/2025 3:59 PM EDT LACTATE (BLOOD GAS) Routine 03/29/2025 11:38 AM EDT ARTERIAL BLOOD GAS PLUS Routine 03/29/20 11:38 AM EDT LACTATE (BLOOD GAS) Routine 03/29/2025 7:13 AM EDT ARTERIAL BLOOD GAS PLUS Routine 03/29/20 7:13 AM EDT ECG 12-LEAD Routine 03/29/2025 7:08 AM EDT COVID PANDEMIC RESPIRATORY VIRAL ORDER (PRO) Routine 03/29/2025 5:16 AM EDT XR CHEST PORTABLE Routine 03/29/2025 4:27 AM EDT CREAT. COMMENT Routine 03/29/2025 2:40 AM EDT ARTERIAL BLOOD GAS PLUS Routine 03/29/20 2:40 AM EDT LACTATE (BLOOD GAS) Routine 03/29/2025 2:40 AM EDT LFTS (HEPATIC PANEL) Routine 03/29/2025 2:40 AM EDT PHOSPHORUS Routine 03/29/2025 2:40 AM EDT MAGNESIUM Routine 03/29/2025 2:40 AM EDT BASIC METABOLIC PANEL Routine 03/29/2025 2:40 AM EDT PTT Routine 03/29/2025 2:40 AM EDT PT-INR Routine 03/29/2025 2:40 AM EDT CBC Routine 03/29/2025 2:40 AM EDT MICROBIOLOGY ADD ON Routine 03/29/2025 12:20 AM EDT ARTERIAL BLOOD GAS PLUS Routine 03/28/20 10:40 PM EDT XR CHEST PORTABLE Timed 03/28/2025 9:49 PM EDT ARTERIAL BLOOD GAS PLUS Routine 03/28/20 5:14 PM EDT POTASSIUM (BLOOD GAS) STAT 03/28/2025 4:21 PM EDT COVID PANDEMIC RESPIRATORY VIRAL ORDER (PRO) Routine 03/28/2025 3:35 PM EDT INFLUENZA A & B & RSV (PCR) Routine 03/17 3:35 PM EDT INSERT ARTERIAL LINE Routine 03/28/2025 3:10 PM EDT Acute hypoxic respiratory failure CREAT. COMMENT Routine 03/28/2025 2:50 PM EDT ARTERIAL BLOOD GAS PLUS Routine 03/28/20 2:50 PM EDT MAGNESIUM Routine 03/28/2025 2:50 PM EDT BASIC METABOLIC PANEL Routine 03/28/2025 2:50 PM EDT US BEDSIDE Routine 03/28/2025 11:31 AM EDT CREAT. COMMENT Routine 03/28/2025 7:59 AM EDT MAGNESIUM Routine 03/28/2025 7:59 AM EDT BASIC METABOLIC PANEL Routine 03/28/2025 7:59 AM EDT ECG 12-LEAD Routine 03/28/2025 7:42 AM EDT URINE SEDIMENT Routine 03/28/2025 7:41 AM EDT MICROALBUMIN, URINE Routine 03/28/2025 7:41 AM EDT MICROALBUMIN/CREATININE, RANDOM URINE Routine 03/28/2025 7:41 AM EDT CBC Routine 03/28/2025 7:41 AM EDT HEPARIN PF4 ANTIBODY (HIT) Routine 03/28 7:41 AM EDT FREE LIGHT CHAINS, SERUM Routine 025 7:41 AM EDT SPEP PANEL Routine 03/28/2025 7:41 AM EDT TOTAL PROTEIN CREATININE RATIO, RANDOM URINE Routine 03/28/2025 7:41 AM EDT URINALYSIS W/REFLEX URINE CULTURE Routine 03/28/2025 7:41 AM EDT TYPE AND SCREEN (ABO,RH,ANTIBODY SCREEN) Routine 03/28/2025 2:02 AM EDT CREAT. COMMENT Routine 03/28/2025 2:02 AM EDT LFTS (HEPATIC PANEL) Routine 03/28/2025 2:02 AM EDT PHOSPHORUS Routine 03/28/2025 2:02 AM EDT MAGNESIUM Routine 03/28/2025 2:02 AM EDT BASIC METABOLIC PANEL Routine 03/28/2025 2:02 AM EDT PTT Routine 03/28/2025 2:02 AM EDT PT-INR Routine 03/28/2025 2:02 AM EDT CBC Routine 03/28/2025 2:02 AM EDT XR CHEST PORTABLE Timed 03/27/2025 10:44 PM EDT LACTATE (BLOOD GAS) Routine 03/27/2025 10:20 PM EDT ARTERIAL BLOOD GAS PLUS Routine 03/27/20 10:20 PM EDT ARTERIAL BLOOD GAS PLUS Routine 03/27/20 4:50 PM EDT LACTATE (BLOOD GAS) Routine 03/27/2025 4:50 PM EDT CBC Routine 03/27/2025 12:28 PM EDT LACTATE (BLOOD GAS) Routine 03/27/2025 12:28 PM EDT ARTERIAL BLOOD GAS PLUS Routine 03/27/20 12:28 PM EDT PREPARE RBC Routine 03/27/2025 8:55 AM EDT LACTATE (BLOOD GAS) Routine 03/27/2025 7:24 AM EDT ARTERIAL BLOOD GAS PLUS Routine 03/27/20 7:24 AM EDT ECG 12-LEAD Routine 03/27/2025 7:23 AM EDT PTT Routine 03/27/2025 6:17 AM EDT PT-INR Routine 03/27/2025 6:17 AM EDT CREAT. COMMENT Routine 03/27/2025 2:10 AM EDT LFTS (HEPATIC PANEL) Routine 03/27/2025 2:10 AM EDT PHOSPHORUS Routine 03/27/2025 2:10 AM EDT MAGNESIUM Routine 03/27/2025 2:10 AM EDT BASIC METABOLIC PANEL Routine 03/27/2025 2:10 AM EDT CBC Routine 03/27/2025 2:10 AM EDT ARTERIAL BLOOD GAS PLUS Routine 03/27/20 2:10 AM EDT ARTERIAL BLOOD GAS PLUS Routine 03/26/20 11:25 PM EDT LACTATE (BLOOD GAS) Routine 03/26/2025 10:38 PM EDT ARTERIAL BLOOD GAS PLUS Routine 03/26/20 10:38 PM EDT ARTERIAL BLOOD GAS PLUS Routine 03/26/20 9:44 PM EDT OXYGEN SATURATION, ARTERIAL STAT 03/17 9:32 PM EDT XR CHEST PORTABLE Timed 03/26/2025 8:48 PM EDT LACTIC ACID (LACTATE) Routine 03/26/2025 3:35 PM EDT LFTS (HEPATIC PANEL) Routine 03/26/2025 3:35 PM EDT PHOSPHORUS Routine 03/26/2025 3:35 PM EDT MAGNESIUM Routine 03/26/2025 3:35 PM EDT BASIC METABOLIC PANEL Routine 03/26/2025 3:35 PM EDT CBC Routine 03/26/2025 3:35 PM EDT POCT GLUCOSE Routine 03/26/2025 1:11 PM EDT POCT GLUCOSE Routine 03/26/2025 12:18 PM EDT PHOSPHORUS Routine 03/26/2025 10:23 AM EDT MAGNESIUM Routine 03/26/2025 10:23 AM EDT BASIC METABOLIC PANEL Routine 03/26/2025 10:23 AM EDT LACTATE (BLOOD GAS) Routine 03/26/2025 10:23 AM EDT ARTERIAL BLOOD GAS PLUS Routine 03/26/20 10:23 AM EDT POCT GLUCOSE Routine 03/26/2025 8:37 AM EDT POCT GLUCOSE Routine 03/26/2025 7:38 AM EDT ECG 12-LEAD Routine 03/26/2025 7:19 AM EDT POCT GLUCOSE Routine 03/26/2025 6:33 AM EDT POCT GLUCOSE Routine 03/26/2025 5:46 AM EDT ARTERIAL BLOOD GAS PLUS Routine 03/26/20 5:46 AM EDT LACTATE (BLOOD GAS) Routine 03/26/2025 5:09 AM EDT ARTERIAL BLOOD GAS PLUS Routine 03/26/20 5:09 AM EDT POCT GLUCOSE Routine 03/26/2025 4:38 AM EDT OXYGEN SATURATION, MIXED VENOUS Routine 03/26/2025 3:38 AM EDT POCT GLUCOSE Routine 03/26/2025 3:29 AM EDT ARTERIAL BLOOD GAS PLUS Routine 03/26/20 3:10 AM EDT LACTATE (BLOOD GAS) Routine 03/26/2025 3:10 AM EDT LFTS (HEPATIC PANEL) Routine 03/26/2025 3:10 AM EDT PHOSPHORUS Routine 03/26/2025 3:10 AM EDT MAGNESIUM Routine 03/26/2025 3:10 AM EDT BASIC METABOLIC PANEL Routine 03/26/2025 3:10 AM EDT PTT Routine 03/26/2025 3:10 AM EDT PT-INR Routine 03/26/2025 3:10 AM EDT FIBRINOGEN Routine 03/26/2025 3:10 AM EDT CBC Routine 03/26/2025 3:10 AM EDT XR CHEST PORTABLE Routine 03/26/2025 2:49 AM EDT POCT GLUCOSE Routine 03/26/2025 1:52 AM EDT POCT GLUCOSE Routine 03/26/2025 12:55 AM EDT LACTATE (BLOOD GAS) Routine 03/26/2025 12:01 AM EDT ARTERIAL BLOOD GAS PLUS Routine 03/26/20 12:01 AM EDT POCT GLUCOSE Routine 03/25/2025 11:59 PM EDT LACTATE (BLOOD GAS) Routine 03/25/2025 10:28 PM EDT ARTERIAL BLOOD GAS PLUS Routine 03/25/20 10:28 PM EDT LACTATE (BLOOD GAS) Routine 03/25/2025 9:18 PM EDT ARTERIAL BLOOD GAS PLUS Routine 03/25/20 9:18 PM EDT POCT GLUCOSE Routine 03/25/2025 9:15 PM EDT PHOSPHORUS Routine 03/25/2025 8:13 PM EDT MAGNESIUM Routine 03/25/2025 8:13 PM EDT LACTATE (BLOOD GAS) Routine 03/25/2025 8:13 PM EDT ARTERIAL BLOOD GAS PLUS Routine 03/25/20 8:13 PM EDT POCT GLUCOSE Routine 03/25/2025 8:12 PM EDT POCT GLUCOSE Routine 03/25/2025 7:00 PM EDT ARTERIAL BLOOD GAS PLUS Routine 03/25/20 6:33 PM EDT LACTATE (BLOOD GAS) Routine 03/25/2025 5:59 PM EDT ARTERIAL BLOOD GAS PLUS Routine 03/25/20 5:59 PM EDT LACTATE (BLOOD GAS) Routine 03/25/2025 5:00 PM EDT ARTERIAL BLOOD GAS PLUS Routine 03/25/20 5:00 PM EDT OXYGEN SATURATION, MIXED VENOUS Routine 03/25/2025 3:15 PM EDT ARTERIAL BLOOD GAS PLUS Routine 03/25/20 3:04 PM EDT LACTATE (BLOOD GAS) Routine 03/25/2025 3:04 PM EDT XR CHEST PORTABLE Routine 03/25/2025 3:01 PM EDT ARTERIAL BLOOD GAS PLUS Routine 03/25/20 1:45 PM EDT OXYGEN SATURATION, MIXED VENOUS Routine 03/25/2025 1:45 PM EDT LACTATE (BLOOD GAS) Routine 03/25/2025 1:45 PM EDT LFTS (HEPATIC PANEL) Routine 03/25/2025 1:45 PM EDT PHOSPHORUS Routine 03/25/2025 1:45 PM EDT MAGNESIUM Routine 03/25/2025 1:45 PM EDT BASIC METABOLIC PANEL Routine 03/25/2025 1:45 PM EDT PTT Routine 03/25/2025 1:45 PM EDT PT-INR Routine 03/25/2025 1:45 PM EDT FIBRINOGEN Routine 03/25/2025 1:45 PM EDT CBC Routine 03/25/2025 1:45 PM EDT VANCOMYCIN RESISTANT ENTEROCOCCI (VRE) RECTAL SCREEN Routine 03/25/2025 1:45 PM EDT MRSA NASAL SCREEN Routine 03/25/2025 1:45 PM EDT EXTUBATION Routine 03/25/2025 1:44 PM EDT CB COMP PROBE PLACED BY MICHELE Jade W/ COLOR FLOW AND COMP DOPPLER Routine 03/25/2025 1:23 PM EDT Aortic valve stenosis with insufficiency, etiology of cardiac valve disease unspecified POCT ACTFROM CARDIAC OR Routine 03/25/20 12:39 PM EDT POCT HEPARIN PROTAMINE TITRATION Routine 03/25/2025 12:39 PM EDT FIBRINOGEN STAT 03/25/2025 12:32 PM EDT PTT STAT 03/25/2025 12:32 PM EDT PT-INR STAT 03/25/2025 12:32 PM EDT CBC STAT 03/25/2025 12:32 PM EDT LACTATE (BLOOD GAS) STAT 03/25/2025 12:32 PM EDT ARTERIAL BLOOD GAS PLUS STAT 03/25/20 12:32 PM EDT POCT ACTFROM CARDIAC OR Routine 03/25/20 11:52 AM EDT POCT HEPARIN PROTAMINE TITRATION Routine 03/25/2025 11:52 AM EDT PUMP BLOOD GAS PLUS STAT 03/25/2025 11:44 AM EDT LACTATE (BLOOD GAS) STAT 03/25/2025 11:44 AM EDT POCT ACTFROM CARDIAC OR Routine 03/25/20 11:24 AM EDT POCT HEPARIN PROTAMINE TITRATION Routine 03/25/2025 11:24 AM EDT PUMP BLOOD GAS PLUS STAT 03/25/2025 11:17 AM EDT LACTATE (BLOOD GAS) STAT 03/25/2025 11:17 AM EDT POCT ACTFROM CARDIAC OR Routine 03/25/20 10:54 AM EDT POCT HEPARIN PROTAMINE TITRATION Routine 03/25/2025 10:54 AM EDT PUMP BLOOD GAS PLUS STAT 03/25/2025 10:47 AM EDT LACTATE (BLOOD GAS) STAT 03/25/2025 10:47 AM EDT ANATOMIC PATHOLOGY Routine 03/25/2025 10:37 AM EDT POCT ACTFROM CARDIAC OR Routine 03/25/20 10:22 AM EDT POCT HEPARIN PROTAMINE TITRATION Routine 03/25/2025 10:22 AM EDT PUMP BLOOD GAS PLUS STAT 03/25/2025 10:17 AM EDT LACTATE (BLOOD GAS) STAT 03/25/2025 10:17 AM EDT POCT ACTFROM CARDIAC OR Routine 03/25/20 9:56 AM EDT POCT HEPARIN PROTAMINE TITRATION Routine 03/25/2025 9:56 AM EDT PUMP BLOOD GAS PLUS STAT 03/25/2025 9:47 AM EDT LACTATE (BLOOD GAS) STAT 03/25/2025 9:47 AM EDT POCT ACTFROM CARDIAC OR Routine 03/25/20 9:28 AM EDT POCT HEPARIN PROTAMINE TITRATION Routine 03/25/2025 9:28 AM EDT PUMP BLOOD GAS PLUS STAT 03/25/2025 9:21 AM EDT VENOUS BLOOD GAS PLUS STAT 03/25/2025 9:21 AM EDT LACTATE (BLOOD GAS) STAT 03/25/2025 9:21 AM EDT POCT ACTFROM CARDIAC OR Routine 03/25/20 9:12 AM EDT POCT ACTFROM CARDIAC OR Routine 03/25/20 8:59 AM EDT POCT HEPARIN PROTAMINE TITRATION Routine 03/25/2025 8:59 AM EDT ANES VIP PLUS CATH - CENTRAL PA LINE Routine 03/25/2025 8:36 AM EDT ANES DOUBLE LUMEN SHEATH - P A LINE Routine 03/25/2025 8:36 AM EDT [place] INSERT/PLACE FLOW DIRECT CATH PERF Routine 03/25/2025 8:36 AM EDT [place] ECHO HEART TRANSESOPH PRO BE PLACEMT PERF Routine 03/25/2025 8:36 AM EDT [place] INSERT CATH ART PERCUT SHORTTERM PERF Routine 03/25/2025 8:35 AM EDT POCT HEPARIN DOSE RESPONSE Routine 03/25 7:55 AM EDT AIRWAY PLACEMENT Routine 03/25/2025 7:46 AM EDT POCT HEPARIN DOSE RESPONSE Routine 03/25 7:45 AM EDT BASIC METABOLIC PANEL STAT 03/25/2025 7:42 AM EDT LACTATE (BLOOD GAS) STAT 03/25/2025 7:42 AM EDT ARTERIAL BLOOD GAS PLUS STAT 03/25/20 7:42 AM EDT [place] VALVULOPLASTY AORTIC VALV E OPEN CARD BYP SIMPLE 03/25/2025 7:32 AM EDT Aortic valve insufficiency, etiology of cardiac valve disease unspecified Ascending aortic aneurysm, unspecified whether ruptured Atrial fibrillation, unspecified type Special Needs CPT Code(s):AscAoAneurysm Graft Replacement-- [id number]-- [id number] (Tissue)-- 75630 [place] EXCLUSION JAMEE OPEN TM STRNT/THRCM ANY METHOD 03/25/2025 7:32 AM EDT Aortic valve insufficiency, etiology of cardiac valve disease unspecified Ascending aortic aneurysm, unspecified whether ruptured Atrial fibrillation, unspecified type Special Needs CPT Code(s):AscAoAneurysm Graft Replacement-- [id number]-- [id number] (Tissue)-- [id number] [place] -AORT GRF W/CARD BYP F/AORTIC DS OTH/THN DSJ 03/25/2025 7:32 AM EDT Aortic valve insufficiency, etiology of cardiac valve disease unspecified Ascending aortic aneurysm, unspecified whether ruptured Atrial fibrillation, unspecified type Special Needs CPT Code(s):AscAoAneurysm Graft Replacement-- [id number]-- [id number] (Tissue)-- [id number] ANESTHESIA POINT OF CARE GAMALIEL GE CAPTURE Routine 03/25/2025 7:13 AM EDT ANESTHESIA POINT OF CARE GAMALIEL GE CAPTURE Routine 03/25/2025 6:28 AM EDT ECG 12-LEAD Routine 03/12/2025 4:03 PM EDT [...] 02/09/2025 11:11 AM EDT Dysphagia, unspecified type [place] ESOPHAGOGASTRODUODENOSCOP Y TRANSORAL DIAGNOSTIC 02/09/2025 11:11 AM [...] EDT Atrial fibrillation, unspecified type Hypertensive disorder from Last 3 Months Results * PT-INR (04/13/2025) Only the most recent of17 resultswithin the time period is included. External Or Transcribed PT-INR 2.0 Historical Provider MD LAB BLOOD ORDERABLES Jessica l Result * Prepare RBC, 1 Units (04/06/2025 12:37 AM EDT) Only the most recent of2 resultswithin the time period is included. Product Code [id number] 04/06/2025 12:37 AM EDT [facility] Unit Number [id number] 04/06/20 12:37 AM EDT [facility] Crossmatch Interpretation Compatible 04/04/2025 10:05 AM EDT [facility] Product Status Issued, Final 025 12:37 AM EDT [facility] ABO/Rh of Unit APOS 04/06/2025 12:37 AM EDT [facility] Expiration Date/Time [id number] 04/06/2025 12:37 AM EDT [facility] Unit Barcode [id number] 04/06/2025 12:37 AM EDT [facility] 03/12/2025 5:1 6 PM EDT us Khari Walker PA-C BLOOD BANK PRODUCT ORDE ESSENCE Final Result [facility] [address] [place] [address] * POCT Glucose (04/05/2025 8:02 AM EDT) Only the most recent of41 resultswithin the time period is included. Glucose, POCT 104 70 - 110 mg/dL [facility] 04/05/2025 8:02 AM EDT 04/05/2025 8:04 AM EDT Aleshia Leonard MD POINT OF CARE TEST ORDERABLES F inal Result Performing Organization Address City/[facility] Co de Phone Number [address] [address] * (ABNORMAL) CBC (04/05/2025 5:36 AM EDT) Only the most recent of18 resultswithin the time period is included. WBC 10.87 4.00 - 11.00 K/uL [facility] RBC 2.77(L) 4.00 - 5.20 M/uL [facility] HGB 8.7(L) 12.0 - 16.0 g/dL [facility] HCT 26.7(L) 36.0 - 46.0 % [facility] PLT 384 150 - 450 K/uL [facility] MCV 96.4 80.0 - 100.0 fL [facility] MCH 31.4(H) 27.0 - 31.0 pg [facility] MCHC 32.6 32.0 - 36.0 g/dL [facility] RDW 15.9(H) 11.5 - 14.5 % [facility] MPV 9.9 8.4 - 12.0 fL [facility] NRBC 0.00 0.00 /100 WBCs [facility] ABSOLUTE NRBC 0.00 0.00 K/uL [facility] Blood 04/05/2025 5:36 AM EDT 04/05/2025 6:07 AM EDT Shanelle Mcmullen OBSTETRICAL TECH LAB BLOOD ORDERABLES Final Res ult [address] [address] * Type and Screen (ABO,Rh,Antibody Screen) (04/05/2025 5:36 AM EDT) Only the most recent of4 resultswithin the time period is included. Expiration Date of Sample 04/08/2025 11:59 PM [facility] Antibody Screen Negative 04/05/2025 6:52 AM EDT [facility] Resulting Agency [facility] ABO A 04/05/2025 6:42 AM EDT [facility] Rh Positive 04/05/2025 6:42 AM EDT [facility] Blood 04/05/2025 5:36 AM EDT 04/05/2025 5:49 AM EDT us Khari Walker PA-C BLOOD BANK TEST ORDERAB LES Final Result Performing Organization Address [facility]/ZIP Co de Phone Number [address] [address] * Magnesium (04/05/2025 5:36 AM EDT) Only the most recent of29 resultswithin the time period is included. MAGNESIUM 2.4 1.7 - 2.4 mg/dL [facility] Blood 04/05/2025 5:36 AM EDT 04/05/2025 6:07 AM EDT us Shanelle Mcmullen OBSTETRICAL TECH LAB BLOOD ORDERABLES Final Res ult Performing Organization Address City/[facility] Co de Phone Number [address] [address] * (ABNORMAL) Basic metabolic panel (04/05/2025 5:36 AM EDT) Only the most recent of29 resultswithin the time period is included. SODIUM 140 135 - 145 mmol/L [facility] POTASSIUM 3.6 3.4 - 5.0 mmol/L [facility] CHLORIDE 97(L) 98 - 108 mmol/L [facility] CO2 28 23 - 32 mmol/L [facility] BUN 44(H) 8 - 25 mg/dL [facility] CREATININE 2.21(H) 0.50 - 1.00 mg/dL [facility] GLUCOSE 93 70 - 110 mg/dL [facility] CALCIUM 8.9 8.5 - 10.5 mg/dL [facility] EGFR 22(L) >59 mL/min/1. 73m2 [facility] Comment:Estimated glomerular filtration rate calculated using the CKD-EPI refit equation. ANION GAP 15 3 - 17 mmol/L [facility] Blood 04/05/2025 5:36 AM EDT 04/05/2025 6:07 AM EDT Shanelle Mcmullen OBSTETRICAL TECH LAB BLOOD ORDERABLES Final Res ult Performing Organization Address [facility]/ZIP Co de Phone Number [address] [address] * Sodium, random urine (04/04/2025 6:29 PM EDT) URINE SODIUM 20 mmol/L [facility] Comment:Results must be inte rpreted based on patient context and with other clinical and laboratory data. Urine (Urine) 04/04/2025 6:2 9 PM EDT 04/04/2025 9:32 PM EDT Khari Walker PA-C URINE ORDERABLES Final Result Performing Organization Address [facility] Co de Phone Number [address] [address] * Osmolality, Random Urine (04/04/2025 6:29 PM EDT) URINE OSMOLALITY 326 150 - 1,150 mOsm/kg water [facility] Urine (Urine) 04/04/2025 6:2 9 PM EDT 04/04/2025 9:32 PM EDT Khari Walker PA-C URINE ORDERABLES Final Result Performing Organization Address [facility] Co de Phone Number [address] [address] * Transfuse RBC (04/04/2025 4:29 PM EDT) us Khari Walker PA-C NURSING TREATMENT ORDER TRENT - BLOOD ADMIN Final Result [facility] * XR CHEST PA AND LATERAL 2 VIEWS (04/03/2025 1:27 PM EDT) Anatomical Region Laterality Modality Chest Computed Radiogr aphy 04/03/2025 5:37 PM EDT Impressions 04/03/2025 5:46 PM EDT Status post median sternotomy and aortic valve replacement. Left atrial appendage ligation clip in place. Decreased airspace opacities in lung bases compared to prior exam. Patchy opacities remain in the left midlung and lung bases which may be related to areas of atelectasis. Underlying aspiration or pneumonia would not be able to be excluded in the appropriate clinical setting. Follow-up is recommended to confirm clearing. Small bilateral pleural effusions Unchanged mild enlargement of the cardiac silhouette. RECOMMENDATION: Follow-up is recommended to ensure clearing. Narrative 04/03/2025 5:46 PM EDT XR CHEST PA AND LATERAL 2 VIEWS Referring clinician's provided indication for this examination in [facility]: S/P Cardiac Surgery COMPARISON: April 01, 2025 and prior examinations through February 17, 2025. FINDINGS: Devices/Tubes/Lines: Status post median sternotomy and aortic valve replacement. There is a left atrial appendage ligation clip in place. Lungs: There are decreased opacities in both lung bases. There are patchy airspace opacities that remain in the left midlung and both lung bases. No evidence for pulmonary edema. Pleura: There is mild blunting of the costophrenic angles bilaterally. No evidence for pneumothorax. Heart/Mediastinum: The cardiac silhouette is 59% of the transthoracic diameter consistent with mild enlargement. This is unchanged in appearance. There are mediastinal surgical clips. Bones/Soft Tissues: There are degenerative changes of the spine. Bony thorax and extrathoracic soft tissues are unchanged. Procedure Note Saman Macias MD - 04/03/2025 XR CHEST PA AND LATERAL 2 VIEWS Referring clinician's provided indication for this examination in [facility]:S/P Cardiac Surgery COMPARISON: April 01, 2025 and prior examinations through February. FINDINGS: Devices/Tubes/Lines: Status post median sternotomy and aortic valvereplacement. There is a left atrial appendage ligation clip in place. Lungs: There are decreased opacities in both lung bases. There are patchyairspace opacities that remain in the left midlung and both lung bases. Noevidence for pulmonary edema. Pleura: There is mild blunting of the costophrenic angles bilaterally. Noevidence for pneumothorax. Heart/Mediastinum: The cardiac silhouette is 59% of the transthoracicdiameter consistent with mild enlargement. This is unchanged inappearance. There are mediastinal surgical clips. Bones/Soft Tissues: There are degenerative changes of the spine. Bonythorax and extrathoracic soft tissues are unchanged. IMPRESSION: Status post median sternotomy and aortic valve replacement. Left atrialappendage ligation clip in place. Decreased airspace opacities in lung bases compared to prior exam. Patchyopacities remain in the left midlung and lung bases which may be relatedto areas of atelectasis. Underlying aspiration or pneumonia would not beable to be excluded in the appropriate clinical setting. Follow-up isrecommended to confirm clearing. Small bilateral pleural effusions Unchanged mild enlargement of the cardiac silhouette. RECOMMENDATION: Follow-up is recommended to ensure clearing. Felton Quiroga PA-C IMG XR CHEST Final R esult * Creat. Comment (04/02/2025 4:33 AM EDT) Only the most recent of16 resultswithin the time period is included. Creat Comment Increasing Creatinine Value on your Patient: The calculated GFR may thus overestimate the true GFR and should not be used to guide medication dosing. Negative [facility] 04/02/2025 4:33 AM EDT 04/02/2025 4:53 AM EDT Nicolette Pike LABORATORY OPERATIONS COORDINATOR, DNP LAB BLOOD ORDERAB LES Final Result [address] [address] * (ABNORMAL) LFTs (hepatic panel) (04/02/2025 12:34 AM EDT) Only the most recent of10 resultswithin the time period is included. ALBUMIN 3.2(L) 3.3 - 5.0 g/dL [facility] TOTAL BILIRUBIN 0.5 0.0 - 1.0 mg/dL [facility] DIRECT BILIRUBIN 0.2 0.0 - 0.3 mg/dL [facility] ALKALINE PHOSPHATASE 69 30 - 100 U/L [facility] AST 25 9 - 32 U/L [facility] ALT 13 7 - 33 U/L [facility] TOTAL PROTEIN 6.2 6.0 - 8.3 g/dL [facility] GLOBULIN 3.0 1.9 - 4.1 g/dL [facility] Blood 04/02/2025 12:3 4 AM EDT 04/02/2025 12:55 AM EDT us Nicolette Pike CNP, [facility] LAB BLOOD ORDERAB LES Final Result Performing Organization Address City/[facility] Co de Phone Number [address] [address] * PTT (04/02/2025 12:34 AM EDT) Only the most recent of12 resultswithin the time period is included. APTT 27.8 24.0 - 37.5 sec [facility] Comment:Check MAR for the ta rget range that is ordered for your patient. Blood 04/02/2025 12:3 4 AM EDT 04/02/2025 12:55 AM EDT us Nicolette Pike CNP, [facility] LAB BLOOD ORDERAB LES Final Result Performing Organization Address [facility] Co de Phone Number [address] [address] * Phosphorus (04/02/2025 12:34 AM EDT) Only the most recent of19 resultswithin the time period is included. PHOSPHORUS 3.6 2.6 - 4.5 mg/dL [facility] Blood 04/02/2025 12:3 4 AM EDT 04/02/2025 12:55 AM EDT us Nicolette Pike CNP, [facility] LAB BLOOD ORDERAB LES Final Result Performing Organization Address [facility] Co de Phone Number [address] [address] * Lactate (04/02/2025 12:34 AM EDT) Only the most recent of3 resultswithin the time period is included. LACTIC ACID (MMOL/L) 0.9 0.5 - 2.0 mmol/L [facility] Blood 04/02/2025 12:3 4 AM EDT 04/02/2025 12:54 AM EDT Nicolette Pike LABORATORY OPERATIONS COORDINATOR, DNP LAB BLOOD ORDERAB LES Final Result [facility] [address] [place] [address] * XR Chest Portable (04/01/2025 10:13 PM EDT) Anatomical Region Laterality Modality Chest Computed Radiogr aphy 04/02/2025 9:16 AM EDT Impressions 04/02/2025 9:19 AM EDT Tubes and lines as described. Status post median sternotomy. Status post aortic valve replacement. Cardiomegaly. Slight improvement in interstitial edema with patchy atelectasis at both bases. l il ral pleural effusions. Narrative 04/02/2025 9:19 AM EDT XR CHEST PORTABLE Referring clinician's provided indication for this examination in [facility]: S/P Cardiac Surgery COMPARISON: XR CHEST PORTABLE 03:24:09.000 FINDINGS: Devices/Tubes/Lines: There has been a median sternotomy. There is a RIGHT internal jugular catheter just above the superior vena cava probably in the RIGHT innominate vein. Lungs: Has been some improvement in the interstitial pulmonary edema. There is still edema at the bases with atelectasis also Pleura: Normal. No pleural effusion or pneumothorax. Heart/Mediastinum: Heart remains significantly enlarged. There has been an aortic valve replacement. Bones/Soft Tissues: There has been a median sternotomy Procedure Note Daisha Rao MD - 04/02/2025 XR CHEST PORTABLE Referring clinician's provided indication for this examination in [facility]:S/P Cardiac Surgery COMPARISON: XR CHEST PORTABLE 03:24:09.000 FINDINGS: Devices/Tubes/Lines: There has been a median sternotomy. There is a RIGHTinternal jugular catheter just above the superior vena cava probably inthe RIGHT innominate vein. Lungs: Has been some improvement in the interstitial pulmonary edema.There is still edema at the bases with atelectasis also Pleura: Normal. No pleural effusion or pneumothorax. Heart/Mediastinum: Heart remains significantly enlarged. There has been anaortic valve replacement. Bones/Soft Tissues: There has been a median sternotomy IMPRESSION: Tubes and lines as described. Status post median sternotomy. Status post aortic valve replacement. Cardiomegaly. Slight improvement in interstitial edema with patchy atelectasis at bothbases. l il ral pleural effusions. Shanelle Mcmullen OBSTETRICAL TECH IMG XR CHEST Final Result * GLUCOSE (BLOOD GAS) (04/01/2025 12:48 PM EDT) Only the most recent of4 resultswithin the time period is included. Pathologist [facility] Glucose, whole bld 106 70 - 110 mg/dL [facility] Blood 04/01/2025 12:4 8 PM EDT 04/01/2025 1:03 PM EDT Nicolette Pike CNP, KUSUM LAB BLOOD ORDERAB LES Final Result Performing Organization Address [facility]/ZIP Co de Phone Number [place] [phone] * (ABNORMAL) POTASSIUM (BLOOD GAS) (04/01/2025 12:48 PM EDT) Only the most recent of4 resultswithin the time period is included. [facility] POTASSIUM 3.2(L) 3.5 - 5.0 mmol/L [facility] Blood 04/01/2025 12:4 8 PM EDT 04/01/2025 1:03 PM EDT Nicolette Pike CNP, KUSUM LAB BLOOD ORDERAB LES Final Result Performing Organization Address City/[facility]/ZIP Co de Phone Number [address] [address] * Respiratory Pathogen PCR Panel (04/01/2025 11:43 AM EDT) Pathologist [facility] Specimen Type NASOPHARYNGEAL SWAB [facility] Adenovirus Not Detected Not Detected [facility] Coronavirus, not SARS-CoV-2 Not Detected Not Detected [facility] Comment:This component of th e panel targets Coronavirus 229E, HKU1, NL63, and OC43 only. Human Metapneumovirus Not Detected Not Detected [facility] Influenza A Not Detected Not Detected [facility] Comment:This component of th e panel detects Influenza A and can differentiate among certain Influenza A subtypes including H1, H1-2009, H3, and a non-specified subtype. Influenza B Not Detected Not Detected [facility] Parainfluenza 1-4 Not Detected Not Detected [facility] Respiratory Syncytial Virus Not Detected Not Detected [facility] Human Rhinovirus/Entero virus Not Detected Not Detected [facility] Bordetella Parapertussis Not Detected Not Detected [facility] Bordetella Pertussis Presumptive: Not Detected Presumptiv e: Not Detected [facility] Chlamydia Pneumoniae Presumptive: Not Detected Presumptiv e: Not Detected [facility] Mycoplasma Pneumoniae Presumptive: Not Detected Presumptiv e: Not Detected [facility] Comment: Performance of this assay has not been established for specimens collected from individuals without signs or symptoms of respiratory infections. This test has [place] authorization from the FDA for use by authorized laboratories. 04/01/2025 11:4 3 AM EDT 04/01/2025 11:43 AM EDT us Aleshia Leonard MD MICROBIOLOGY - GENERAL ORDERABL ES Final Result Performing Organization Address [facility]/ZIP Co de Phone Number [facility] [address] [place] [address] * Serology comment (04/01/2025 11:43 AM EDT) SEROLOGY COMMENT Test Added by MD/Care Unit on: [facility] Comment:04/01/25 BY KENTRELL MONTERROSO 04/01/2025 11:4 3 AM EDT 04/01/2025 11:43 AM EDT us Aleshia Leonard MD LAB BLOOD ORDERABLES Final Resu lt Performing Organization Address [facility]/ZIP Co de Phone Number [facility] [address] [place] [address] * Microbiology Add On (04/01/2025 10:52 AM EDT) Only the most recent of2 resultswithin the time period is included. CONTACT INFORMATION [id number] [facility] TEST REQUESTED RESPIRATORY EXPANDED VIRAL PANEL [facility] Comments (Chemistry) ADD ON COMPLETE. [facility] Specimen Type RESPIRATORY NASOPHARYNGEAL SWAB [facility] Specimen Date/Time 03 29 25 0516 [facility] 04/01/2025 10:5 2 AM EDT 04/01/2025 11:45 AM EDT [facility] OBSTETRICAL TECH MICROBIOLOGY - GENERAL ORDERAB LES Final Result Performing Organization Address [facility] Co de Phone Number [address] [address] * (ABNORMAL) Cystatin C (04/01/2025 9:00 AM EDT) Cystatin C 2.58(H) 0.61 - 0.95 mg/L [facility] eGFR (Cystatin C) 19(L) >59 mL/min/1. 73m2 [facility] Comment: Cystatin C-based eGFR may differ substantially from creatinine-based eGFR in patients with abnormal muscle mass or acutely changing renal function. Please interpret together with relevant clinical features. Blood 04/01/2025 9:00 AM EDT 04/01/2025 9:22 AM EDT [facility] OBSTETRICAL TECH LAB BLOOD ORDERABLES Final Res ult Performing Organization Address [facility] Co de Phone Number [address] [address] * Bedside Ultrasound (04/01/2025 8:20 AM EDT) Dayana Hodgson MD IMG POINT OF CARE EXAMS Final R esult * XR Chest Portable (04/01/2025 3:35 AM EDT) Anatomical Region Laterality Modality Chest Computed Radiogr aphy 04/01/2025 8:52 AM EDT Impressions 04/01/2025 12:09 PM EDT Postsurgical changes, tubes, and lines as described above. Bilateral basilar atelectasis and increased pleural effusion on the left. There is interval improvement at the left lung base. Worsened appearance of pulmonary edema. ATTESTATION: I, Dr. Daisha Rao as teaching physician, have reviewed the images for this case and if necessary edited the report originally created by [employer]. Narrative 04/01/2025 12:09 PM EDT XR CHEST PORTABLE Referring clinician's provided indication for this examination in [facility]: Post-Op COMPARISON: XR CHEST PORTABLE FINDINGS: Devices/Tubes/Lines: Status post median sternotomy and aortic valve replacement. There is a left atrial appendage ligation clip in place. There is a right-sided internal jugular sheath. There are overlying external cardiac monitoring leads. Lungs: Bilateral opacity present in the lung bases. Worsened appearance of pulmonary edema. Pleura: Blunting of bilateral costophrenic angles. Heart/Mediastinum: Mild enlargement of cardiac silhouette. Bones/Soft Tissues: Bony thorax and extrathoracic soft tissues are unchanged. Procedure Note Daisha Rao MD - 04/01/2025 XR CHEST PORTABLE Referring clinician's provided indication for this examination in [facility]:Post-Op COMPARISON: XR CHEST PORTABLE FINDINGS: Devices/Tubes/Lines: Status post median sternotomy and aortic valvereplacement. There is a left atrial appendage ligation clip in place.There is a right-sided internal jugular sheath. There are overlyingexternal cardiac monitoring leads. Lungs: Bilateral opacity present in the lung bases. Worsened appearance ofpulmonary edema. Pleura: Blunting of bilateral costophrenic angles. Heart/Mediastinum: Mild enlargement of cardiac silhouette. Bones/Soft Tissues: Bony thorax and extrathoracic soft tissues areunchanged. IMPRESSION: Postsurgical changes, tubes, and lines as described above. Bilateral basilar atelectasis and increased pleural effusion on the left.There is interval improvement at the left lung base. Worsened appearance of pulmonary edema. ATTESTATION: I, Dr. Daisha Rao as teaching physician, have reviewedthe images for this case and if necessary edited the report originallycreated by [employer]. us Salome Farmer PA-C IMG XR CHEST Final Resul t * Urea nitrogen, random urine (04/01/2025 3:35 AM EDT) URINE UREA NITROGEN 123 mg/dL [facility] Urine (Urine) 04/01/2025 3:3 5 AM EDT 04/01/2025 3:54 AM EDT Aleshia Leonard MD URINE ORDERABLES Final Result Performing Organization Address [facility] Co de Phone Number [address] [address] * Creatinine, random urine (04/01/2025 3:35 AM EDT) URINE CREATININE 14 mg/dL [facility] Urine (Urine) 04/01/2025 3:3 5 AM EDT 04/01/2025 3:54 AM EDT Aleshia Leonard MD URINE ORDERABLES Final Result Performing Organization Address [facility] Co de Phone Number [address] [address] * Lactate (blood gas) (04/01/2025 2:42 AM EDT) Only the most recent of35 resultswithin the time period is included. Lactate, blood 1.1 0.5 - 2.0 mmol/L [facility] Blood 04/01/2025 2:42 AM EDT 04/01/2025 2:58 AM EDT Nicolette Pike LABORATORY OPERATIONS COORDINATOR, DNP LAB BLOOD ORDERAB LES Final Result Performing Organization Address [facility] Co de Phone Number [address] [address] * ECG 12-LEAD (04/01/2025 12:11 AM EDT) Only the most recent of9 resultswithin the time period is included. Systolic Blood Pressure 127 mmHg [facility] Diastolic Blood Pressure 58 mmHg [facility] Ventricular Rate EKG/MIN 62 BPM [facility] Atrial Rate 62 BPM [facility] [place] Interval 184 ms [facility] QRS Duration 104 ms [facility] QT Interval 354 ms [facility] QTC Interval 359 ms [facility] P [place] 51 degrees [facility] R Wave [place] -7 degrees [facility] T Wave [place] 47 degrees [facility] 04/01/2025 12:1 1 AM EDT 04/09/2025 6:40 PM EDT Narrative [facility] - 04/09/2025 6:40 PM EDT LOCATION: [facility] - CARDIAC DIAGNOSIS : ARRHYTHMIA REF: JENY PIKE CNP NORMAL SINUS RHYTHM POOR R WAVE PROGRESSION WHEN COMPARED WITH ECG OF 31-Mar-2025 21:36, NO SIGNIFICANT CHANGE WAS FOUND us Nicolette Pike LABORATORY OPERATIONS COORDINATOR, DNP ECG ORDERABLES F inal Result Performing Organization Address City/[facility] Co de Phone Number [email or web address] * (ABNORMAL) VENOUS BLOOD GAS PLUS (03/31/2025 11:56 PM EDT) Only the most recent of9 resultswithin the time period is included. FIO2 0.40/30LP M FIO2/L min [facility] PH 7.46(H) 7.30 - 7.40 [facility] PCO2 53(H) 38 - 50 mm[Hg] [facility] PO2 37 35 - 50 mm[Hg] [facility] Base Excess, unspecified 11.1(H) 0.0 - 3.0 mmol/L [facility] HCO3, unspecified 36(H) 24 - 30 mmol/L [facility] SODIUM 131(L) 135 - 145 mmol/L [facility] POTASSIUM 3.2(L) 3.5 - 5.0 mmol/L [facility] IONIZED CALCIUM 1.17 1.14 - 1.30 mmol/L [facility] Glucose, whole bld 245(H) 70 - 110 mg/dL [facility] HGB (BG) 8.2(L) 12.0 - 16.0 g/dl [facility] SO2-VENOUS (SO2, venous) 63.1 60.0 - 85.0 % [facility] Blood 03/31/2025 11:5 6 PM EDT 04/01/2025 12:02 AM EDT Aleshia Leonard MD LAB BLOOD ORDERABLES Final Resu lt [address] [address] * (ABNORMAL) Ionized calcium (03/31/2025 11:56 PM EDT) IONIZED CALCIUM 1.12(L) 1.14 - 1.30 mmol/L [facility] Blood 03/31/2025 11:5 6 PM EDT 04/01/2025 12:02 AM EDT Nicolette Pike CNP, DNP LAB BLOOD ORDERAB LES Final Result Performing Organization Address [facility] Co de Phone Number [address] [address] * (ABNORMAL) Oxygen saturation, mixed venous (03/31/2025 9:24 AM EDT) Only the most recent of8 resultswithin the time period is included. SO2-MIXED (SO2, mixed bld) 59.9(L) 65.0 - 75.0 % [facility] Blood 03/31/2025 9:24 AM EDT 03/31/2025 9:50 AM EDT Nicolette Pike CNP, KUSUM LAB BLOOD ORDERAB LES Final Result Performing Organization Address [facility] Co de Phone Number [address] [address] * XR Chest Portable (03/30/2025 9:00 PM EDT) Anatomical Region Laterality Modality Chest Computed Radiogr aphy 03/31/2025 9:07 AM EDT Impressions 03/31/2025 9:10 AM EDT Postsurgical changes consistent with recent cardiac surgery and aortic valve replacement. Improved pulmonary edema. Mild bibasilar atelectasis. Small pleural effusions. No pneumothorax. Narrative 03/31/2025 9:10 AM EDT XR CHEST PORTABLE Referring clinician's provided indication for this examination in Epic: Respiratory failure COMPARISON: XR CHEST PORTABLE FINDINGS: Devices/Tubes/Lines: There is a left atrial appendage ligation clip in place. A pulmonary artery catheter is demonstrated with distal tip overlying region of the main pulmonary artery. Lungs: Improved now mild perihilar opacities with continued bibasilar atelectasis. Pleura: Bilateral small pleural effusions. No pneumothorax. Heart/Mediastinum: Surgical changes consistent with recent cardiac surgery and aortic valve replacement. A left atrial appendage ligation clip is present. Bones/Soft Tissues: Status post median sternotomy. Procedure Note Dominik Dowell MD - 03/31/2025 XR CHEST PORTABLE Referring clinician's provided indication for this examination in Epic:Respiratory failure COMPARISON: XR CHEST PORTABLE 2024- FINDINGS: Devices/Tubes/Lines: There is a left atrial appendage ligation clip inplace. A pulmonary artery catheter is demonstrated with distal tipoverlying region of the main pulmonary artery. Lungs: Improved now mild perihilar opacities with continued bibasilaratelectasis. Pleura: Bilateral small pleural effusions. No pneumothorax. Heart/Mediastinum: Surgical changes consistent with recent cardiac surgeryand aortic valve replacement. A left atrial appendage ligation clip ispresent. Bones/Soft Tissues: Status post median sternotomy. IMPRESSION: Postsurgical changes consistent with recent cardiac surgery and aorticvalve replacement. Improved pulmonary edema. Mild bibasilar atelectasis. Small pleural effusions. No pneumothorax. us Aleshia Leonard MD IMG XR CHEST Final Result * TTE COMPREHENSIVE W/ AGITATED SALINE (03/30/2025 2:30 PM EDT) Body Surface Area 1.79 m2 Left Ventricle Internal Diameter End Diastole 41 37 - 52 mm Interventricular Septum Thickness 12 6 - 11 mm Left Ventricle Internal Diameter End Systole 27 <35 mm Left Ventricular Posterior Wall Thickness 12 6 - 11 mm Ascending Aorta Diameter 26 <36 mm Raw LV EF% 57 % Left Atrium Dimension Anterior-Posterior 37 15 - 40 mm Left Ventricular Apical Contribution 10 Left Atrial Volume Index 34 16 - 34 mL/m2 Ejection Fraction 67 50 - 75 % Relative Wall Thickness 0.59 0.22 - 0.42 Left Ventricle indexed to BSA 95.9 g/m2 Left Ventricular Outflow Tract Velocity 1.2 m/s Right Ventricle Basal Diameter 32 25 - 41 mm Left Atrial Volume 61 mL Right Atrium Dimension Superior-Inferior 52 mm Right Atrium Index Superior-Inferior 29 19 - 30 mm/m2 Right Atrium Dimension Medial-Lateral 33 mm Right Atrium Dimension Medial-Lateral 18 13 - 25 mm/m2 Ascending Aorta Index 15 mm/m2 Tricuspid Valve Peak Velocity 2.3 m/s Right Ventricle to Right Atrium Pressure Gradient 21 mmHg Right Ventricle Peak Systolic Pressure (Assuming RAP 10) 31 mmHg MGB CV ECHO TV RVSP (ASSUMING RAP OF 5) 26 mmHg RVSP (Exclusive of RAP) 21 mmHg Ascending Aorta Index 15 mm Ascending Aorta Diameter 15 mm AO ASC DIAM BSA INDEX 14.53 Right Atrium Dimension Medial-Lateral 18 mm/m2 Right Atrium Index Superior-Inferior 29 mm/m2 Aortic Valve Peak Gradient 24 mmHg Aortic Valve Mean Gradient 12 mmHg Aortic Valve Prosthetic Peak Gradient 24 mmHg Aortic Valve Prosthetic Mean Gradient 12 mmHg AV AT 90 ms LVOT VTI REST 24.0 cm Aortic Valve Time Velocity Integral 55.0 cm Aortic Valve Dimensionless Index 0.44 MGB CV AV DIMENSIONLESS INDEX (VTI) - STRESS ECHO DOBUT - REST 0.44 Anatomical Region Laterality Modality Heart Ultrasound Narrative 03/30/2025 9:31 PM EDT Normal functioning bioprosthetic AV Normal LV and RV systolic function Probable trivial intrapulmonary shunting however cannot completely exclude trivial interatrial shunting. Left Ventricle The left ventricle is normal in size. There is symmetric hypertrophy. There is normal left ventricular systolic function. The LV ejection fraction is 67% (calculated via the single dimension method). There are no wall motion abnormalities. Right Ventricle The right ventricle is normal in size. There is normal right ventricular systolic function. Left Atrium The left atrium is normal in size. The left atrial volume index by BSA is 34 mL/m2 (normal: 16-34 mL/m2). Right Atrium The right atrium is normal in size. The IVC is normal in size with normal inspiratory collapse. Mitral Valve There is no evidence of mitral valve prolapse. There is posterior mitral annular calcification. There is mild mitral regurgitation. Tricuspid Valve There is mild tricuspid regurgitation. The RV systolic pressure was calculated at 31 mmHg (using TR peak velocity of 2.3 m/s and assuming an RA pressure of 10 mmHg). Aortic Valve There is a bioprosthetic aortic valve present, which is well-seated (per operative report it is 21mm MagnaEase). Leaflets appear normally mobile. The aortic valve peak and mean prosthetic gradients are 24 mmHg and 12 mmHg respectively. The aortic valve acceleration time is 90 ms. The dimensionless index is 0.44. The left ventricular outflow tract velocity is 1.2 m/s. There is no aortic regurgitation. There is no paravalvular regurgitation. There is a surgical graft present in the ascending aorta. There are increased echoes surrounding the graft most c/w post operative changes. Pulmonic Valve There is mild pulmonic regurgitation. Pericardium There is a pericardial fat pad. There is no pericardial effusion. There is a pleural effusion. General Findings The image quality was fair (3). Agitated saline was administered during the study. The patient is s/p bioprosthetic AVR, PFO closure, JAMEE amputation, and ascending aorta replacement. Technically limited subcostal views. Comparison Findings Compared to prior intraoperative CB report on 03/25/2025, (post-operative portion) findings are similar IAS/IVS There are contrast bubbles that appear in the left heart 5 beats after their delivery to the right atrium. This is most consistent with a trivial intrapulmonary shunting however interatrial shunting cannot be completely excluded. There is a subtle degree of respirophasic shift in the position of the IVS most consistent with an element of interventricular interdependence. us Aleshia Lenoard MD CV ECHO ORDERABLES Final Result * US Upper Extremity Veins Duplex Complete (Bilateral) (03/30/2025 12:57 PM EDT) Anatomical Region Laterality Modality Ultrasound 03/30/2025 1:01 PM EDT Narrative 03/30/2025 9:26 PM EDT UPPER EXTREMITY VENOUS - DVT INDICATION / PERTINENT HISTORY: concern for DVT; Edema TECHNIQUE: An ultrasound evaluation of the internal jugular, subclavian, axillary, brachial, basilic and cephalic veins was performed using fang scale, color Doppler and spectral analysis. FINDINGS: The bilateral internal jugular, brachiocephalic, subclavian, axillary and brachial veins are patent with normal, spontaneous, pulsatile and phasic Doppler flow signals demonstrated. Vein villalobos fully compress with external transducer pressure, where applicable (due to overlying bone, the brachiocephalic and subclavian veins cannot be compressed). The basilic and cephalic veins are patent and fully compressible. IV Line noted in the right internal jugular vein. IMPRESSIONS: 1. No evidence of deep vein thrombosis noted in the right or left upper extremities. 2. No evidence of superficial thrombosis detected in the right or left upper extremities. 3. Portable exam. ATTESTATION: Dr. Lauren Leon as teaching physician, have reviewed the images for this case and if necessary edited the report originally created by TAYLOR WILLINGHAM. Procedure Note Lauren Acevedo MD - 03/30/2025 UPPER EXTREMITY VENOUS - DVT INDICATION / PERTINENT HISTORY: concern for DVT; Edema TECHNIQUE: An ultrasound evaluation of the internal jugular, subclavian, axillary,brachial, basilic and cephalic veins was performed using fang scale, colorDoppler and spectral analysis. FINDINGS: The bilateral internal jugular, brachiocephalic, subclavian, axillary andbrachial veins are patent with normal, spontaneous, pulsatile and phasicDoppler flow signals demonstrated. Vein villalobos fully compress withexternal transducer pressure, where applicable (due to overlying bone, thebrachiocephalic and subclavian veins cannot be compressed). The basilicand cephalic veins are patent and fully compressible. IV Line noted in the right internal jugular vein. IMPRESSIONS: 1. No evidence of deep vein thrombosis noted in the right or left upperextremities. 2. No evidence of superficial thrombosis detected in the right or leftupper extremities. 3. Portable exam. ATTESTATION: Dr. Lauren Leon as teaching physician, havereviewed the images for this case and if necessary edited the reportoriginally created by TAYLOR WILLINGHAM. us Juju Sibley CNP CV US VASCULAR Final Result * US Lower Extremity Veins Duplex Complete (Bilateral) (03/30/2025 12:57 PM EDT) Anatomical Region Laterality Modality Ultrasound 03/30/2025 1:00 PM EDT Narrative 03/30/2025 9:26 PM EDT LOWER EXTREMITY VENOUS - DVT INDICATIONS / NOTES: Edema TECHNIQUE: A venous ultrasound evaluation of common femoral, femoral, proximal profunda femoris vein, popliteal and tibial/peroneal veins was performed using a combination of fang scale imaging, color Doppler and spectral analysis. SIDE: Bilateral FINDINGS: The bilateral common femoral vein, proximal profunda femoris vein, femoral vein in the thigh, popliteal, paired posterior tibial and peroneal veins are patent. Doppler flow signals are normal, spontaneous and respirophasic. Vein villalobos fully compress with external transducer pressure at all levels evaluated. IMPRESSIONS: 1. No evidence of deep vein thrombosis noted in the right or left lower extremities. 2. Portable exam. ATTESTATION: IDr. Lauren as teaching physician, have reviewed the images for this case and if necessary edited the report originally created by TAYLOR WILLINGHAM. Procedure Note Lauren Acevedo MD - 03/30/2025 LOWER EXTREMITY VENOUS - DVT INDICATIONS / NOTES: Edema TECHNIQUE: A venous ultrasound evaluation of common femoral, femoral, proximalprofunda femoris vein, popliteal and tibial/peroneal veins was performedusing a combination of fang scale imaging, color Doppler and spectralanalysis. SIDE: Bilateral FINDINGS: The bilateral common femoral vein, proximal profunda femoris vein, femoralvein in the thigh, popliteal, paired posterior tibial and peroneal veinsare patent. Doppler flow signals are normal, spontaneous andrespirophasic. Vein villalobos fully compress with external transducerpressure at all levels evaluated. IMPRESSIONS: 1. No evidence of deep vein thrombosis noted in the right or left lowerextremities. 2. Portable exam. ATTESTATION: Dr. Lauren Leon as teaching physician, havereviewed the images for this case and if necessary edited the reportoriginally created by TAYLOR WILLINGHAM. us Juju Sibley CNP CV US VASCULAR Final Result * (ABNORMAL) Arterial blood gas PLUS (03/30/2025 2:45 AM EDT) Only the most recent of32 resultswithin the time period is included. FIO2 0.65 FIO2/L min [facility] Comment:HFNC 50L PH 7.51(H) 7.35 - 7.45 [facility] PCO2 53(H) 35 - 42 mm[Hg] [facility] PO2 68(L) 80 - 100 mm[Hg] [facility] Base Excess, unspecified 16.4(H) 0.0 - 3.0 mmol/L [facility] HCO3, unspecified 41(H) 24 - 30 mmol/L [facility] SODIUM 139 135 - 145 mmol/L [facility] POTASSIUM 3.6 3.5 - 5.0 mmol/L [facility] IONIZED CALCIUM 1.00(L) 1.14 - 1.30 mmol/L [facility] Glucose, whole bld 121(H) 70 - 110 mg/dL [facility] HGB (BG) 8.3(L) 12.0 - 16.0 g/dl [facility] O2 Sat (SO2, arterial) 94.9 94.0 - 99.0 % [facility] Blood 03/30/2025 2:45 AM EDT 03/30/2025 2:50 AM EDT us Aleshia Leonard MD LAB BLOOD ORDERABLES Final Resu lt Performing Organization Address City/State/[facility] Co de Phone Number [address] [address] * XR Chest Portable (03/29/2025 9:10 PM EDT) Anatomical Region Laterality Modality Chest Computed Radiogr aphy 03/30/2025 8:28 AM EDT Impressions 03/30/2025 8:30 AM EDT Post surgical changes, tubes and lines as described. Unchanged opacity in lung bases which may be related to areas of atelectasis. Partial atelectasis of the left lower lobe may be present. Unchanged mild pulmonary edema, mild enlargement of cardiac silhouette, and bilateral pleural effusions. Narrative 03/30/2025 8:30 AM EDT XR CHEST PORTABLE Referring clinician's provided indication for this examination in Epic: Pleural Effusion; Pneumonia; Respiratory failure COMPARISON: XR CHEST PORTABLE 04:26:50.000 FINDINGS: Devices/Tubes/Lines: Status post median sternotomy and aortic valve replacement. There is a left atrial appendage ligation clip in place. A pulmonary artery catheter is demonstrated with distal tip overlying region of the main pulmonary artery. There are epicardial pacing leads in place. There are overlying external cardiac monitoring leads. Lungs: There are opacities present in the lung bases bilaterally. There is a mild pulmonary edema pattern. Pleura: There is mild blunting of the costophrenic angles bilaterally unchanged. Heart/Mediastinum: Mild enlargement of the cardiac silhouette is unchanged. The examination is obtained in lordotic patient positioning. Bones/Soft Tissues: Bony thorax and extrathoracic soft tissues are unchanged. Surgical clips are demonstrated overlying the left hemithorax unchanged compared to prior examination. Procedure Note Saman Macias MD - 03/30/2025 XR CHEST PORTABLE Referring clinician's provided indication for this examination in Epic:Pleural Effusion; Pneumonia; Respiratory failure COMPARISON: XR CHEST PORTABLE 04:26:50.000 FINDINGS: Devices/Tubes/Lines: Status post median sternotomy and aortic valvereplacement. There is a left atrial appendage ligation clip in place. Apulmonary artery catheter is demonstrated with distal tip overlying regionof the main pulmonary artery. There are epicardial pacing leads in place.There are overlying external cardiac monitoring leads. Lungs: There are opacities present in the lung bases bilaterally. There tram mild pulmonary edema pattern. Pleura: There is mild blunting of the costophrenic angles bilaterallyunchanged. Heart/Mediastinum: Mild enlargement of the cardiac silhouette isunchanged. The examination is obtained in lordotic patient positioning. Bones/Soft Tissues: Bony thorax and extrathoracic soft tissues areunchanged. Surgical clips are demonstrated overlying the left hemithoraxunchanged compared to prior examination. IMPRESSION: Post surgical changes, tubes and lines as described. Unchanged opacity in lung bases which may be related to areas ofatelectasis. Partial atelectasis of the left lower lobe may be present. Unchanged mild pulmonary edema, mild enlargement of cardiac silhouette,and bilateral pleural effusions. us Joelle Hoang LABORATORY OPERATIONS COORDINATOR IMG XR CHEST Final R esult * COVID Pandemic Respiratory Viral Order (PRO) (03/29/2025 5:16 AM EDT) Only the most recent of2 resultswithin the time period is included. Test Ordered Rapid COVID has been ordered [facility] SPECIMEN SOURCE/DESCRIPTIO N NASOPHARYNGEAL SWAB [facility] SARS-CoV 2 (COVID-19) PCR Negative Negative [facility] Comment: Negative results do not preclude SARS-CoV-2 infection and should not be used as the sole basis for patient management decisions. Negative results must be combined with clinical observations, patient history, and epidemiological information. Optimum specimen types and timing for peak viral levels during infection by SARS-CoV-2 have not been determined. Collection of multiple specimens from the same patient may be necessary to detect the virus. This test has been authorized by the FDA under an Emergency Use Authorization (EUA) for use by authorized laboratories. Other (Nasopharyngeal swab) 03/29/2025 5:16 AM EDT 03/29/2025 8:54 AM EDT us Minal Abraham CNP BODY FLUIDS AND STOOLS ORDERABLE S Final Result [address] [address] * XR Chest Portable (03/29/2025 4:27 AM EDT) Anatomical Region Laterality Modality Chest Computed Radiogr aphy 03/29/2025 9:16 AM EDT Impressions 03/29/2025 9:20 AM EDT No pneumothorax. Pulmonary edema has resolved. Small bilateral pleural effusions. Stable patchy opacities in both mid and lower lungs, LEFT greater than RIGHT, consistent with atelectasis. Underlying pneumonia or aspiration can not be ruled out. Narrative 03/29/2025 9:20 AM EDT XR CHEST PORTABLE Referring clinician's provided indication for this examination in Epic: Dyspnea on exertion COMPARISON: XR CHEST PORTABLE FINDINGS: Devices/Tubes/Lines: RIGHT IJ PA catheter tip is at the level the main pulmonary artery. Lungs: Pulmonary edema has resolved. Stable patchy opacities in both mid and lower lungs, LEFT greater and more confluent than RIGHT. Pleura: No pneumothorax. Small bilateral pleural effusions. Heart/Mediastinum: Expected post-surgical changes following median sternotomy and cardiac surgery. Status post replacement of ascending aortic aneurysm and aortic valve replacement 03/25/2025. LEFT atrial appendage clip is in place. Bones/Soft Tissues: Status post median sternotomy. Procedure Note Prasanth Hayward MD - 03/29/2025 XR CHEST PORTABLE Referring clinician's provided indication for this examination in [facility]:Dyspnea on exertion COMPARISON: XR CHEST PORTABLE FINDINGS: Devices/Tubes/Lines: RIGHT IJ PA catheter tip is at the level the mainpulmonary artery. Lungs: Pulmonary edema has resolved. Stable patchy opacities in both midand lower lungs, LEFT greater and more confluent than RIGHT. Pleura: No pneumothorax. Small bilateral pleural effusions. Heart/Mediastinum: Expected post-surgical changes following mediansternotomy and cardiac surgery. Status post replacement of ascendingaortic aneurysm and aortic valve replacement 03/25/2025. LEFT atrialappendage clip is in place. Bones/Soft Tissues: Status post median sternotomy. IMPRESSION: No pneumothorax. Pulmonary edema has resolved. Small bilateral pleural effusions. Stable patchy opacities in both mid and lower lungs, LEFT greater thanRIGHT, consistent with atelectasis. Underlying pneumonia or aspiration can not be ruled out. Minal Abraham LABORATORY OPERATIONS COORDINATOR IMG XR CHEST Final Result * XR Chest Portable (03/28/2025 9:49 PM EDT) Anatomical Region Laterality Modality Chest Computed Radiogr aphy 03/29/2025 8:52 AM EDT Impressions 03/29/2025 8:56 AM EDT No pneumothorax. Decreased mild pulmonary edema. Small bilateral pleural effusions. Stable patchy opacities in both lower lungs, LEFT greater than RIGHT, consistent with atelectasis. Underlying pneumonia or aspiration can not be ruled out. Narrative 03/29/2025 8:56 AM EDT XR CHEST PORTABLE Referring clinician's provided indication for this examination in [facility]: Pulmonary Edema COMPARISON: XR CHEST PORTABLE FINDINGS: Devices/Tubes/Lines: RIGHT IJ PA catheter tip is in the proximal descending LEFT pulmonary artery. Lungs: [Decreased mild pulmonary edema. Stable patchy opacities in both lower lungs, LEFT greater and more confluent than RIGHT. Pleura: No pneumothorax. Small bilateral pleural effusions. Heart/Mediastinum: Expected post-surgical changes following median sternotomy and cardiac surgery. Status post replacement of ascending aortic aneurysm and aortic valve replacement 03/25/2025. LEFT atrial appendage clip is in place. Bones/Soft Tissues: Status post median sternotomy. Procedure Note Prasanth Hayward MD - 03/29/2025 XR CHEST PORTABLE Referring clinician's provided indication for this examination in Epic:Pulmonary Edema COMPARISON: XR CHEST PORTABLE FINDINGS: Devices/Tubes/Lines: RIGHT IJ PA catheter tip is in the proximaldescending LEFT pulmonary artery. Lungs: [Decreased mild pulmonary edema. Stable patchy opacities in bothlower lungs, LEFT greater and more confluent than RIGHT. Pleura: No pneumothorax. Small bilateral pleural effusions. Heart/Mediastinum: Expected post-surgical changes following mediansternotomy and cardiac surgery. Status post replacement of ascendingaortic aneurysm and aortic valve replacement 03/25/2025. LEFT atrialappendage clip is in place. Bones/Soft Tissues: Status post median sternotomy. IMPRESSION: No pneumothorax. Decreased mild pulmonary edema. Small bilateral pleural effusions. Stable patchy opacities in both lower lungs, LEFT greater than RIGHT,consistent with atelectasis. Underlying pneumonia or aspiration can not beruled out. Juju Sibley CNP IMG XR CHEST Final Result * Influenza A/B, RSV, PCR (03/28/2025 3:35 PM EDT) Specimen Type NASOPHARYNGEAL SWAB [facility] Influenza A PCR NEGATIVE for INFLUENZA A NEGATIVE for INFLUENZA A [facility] Influenza B PCR NEGATIVE for INFLUENZA B NEGATIVE for INFLUENZA B [facility] RSV PCR NEGATIVE for RSV NEGATIVE for RSV [facility] Comment: This test has been authorized by the FDA under an Emergency Use Authorization (EUA) for use by authorized laboratories. 03/28/2025 3:35 PM EDT 03/28/2025 5:42 PM EDT Juju Sibley CNP MICROBIOLOGY - GENERAL ORDERA BLES Final Result [address] [address] * INSERT ARTERIAL LINE (03/28/2025 3:10 PM EDT) Narrative Juju Sibley CNP - 03/28/2025 3:10 PM EDT Juju Sibley CNP 03/28/2025 3:14 PM Arterial Line Date/Time: 03/28/2025 3:10 PM Performed by: Juju Sibley CNP Authorized by: Juju Sibley CNP [place] Protocol: Consent obtained: Yes Time out: Immediately prior to the procedure a time-out was called A time out verifies correct patient, procedure, equipment and site/side marked as required: Indications: Indications: respiratory failure Local anesthesia used?: Yes Anesthesia: Local infiltration Local anesthetic: Lidocaine 1% without epinephrine Lidocaine without Epinephrine total (ml): 1 Procedure Details: Preparation: Patient was prepped and draped in usual sterile fashion Location: Left radial Needle gauge: 20 Seldinger technique: Seldinger technique used Number of attempts: 1 Post-procedure: Post-procedure: Dressing applied Post-procedure CMS: Normal Patient tolerance: Patient tolerated the procedure well with no immediate complications After assessment of right radial artery, severe calcifications were noted. The left radial artery was reviewed and was noted to have minimal calcifications and a larger diameter. After discussion with the ICU attending (Lorenza Silva), it was decided that the left radial was a more appropriate site. Images: Images saved: No Juju Sibley CNP PROCEDURE/MINOR SURGICAL ORDE RABLES Final Result * Bedside Ultrasound (03/28/2025 11:31 AM EDT) Result [place] Juju Sibley CNP IMG POINT OF CARE EXAMS Final Result * Urine Sediment (03/28/2025 7:41 AM EDT) RBC 0-2 0 - 2 /hpf [facility] WBC <10 <10 /hpf [facility] Comment:0 to 2 WBC's per hpf 03/28/2025 7:41 AM EDT 03/28/2025 9:05 AM EDT Result [place] Juju Sibley CNP URINE ORDERABLES Final Result [facility] [address] [place] [address] * (ABNORMAL) Urinalysis w/reflex Urine Culture (03/28/2025 7:41 AM EDT) COLOR COLORLESS(A ) Yellow [facility] CLARITY Clear Clear [facility] GLUCOSE Negative Negative [facility] BILI Negative Negative [facility] KETONES Negative Negative [facility] SPECIFIC GRAVITY 1.008 1.001 - 1.035 [facility] BLOOD 1+(A) Negative [facility] PH 5.0 5.0 - 9.0 [facility] Protein-UA Negative Negative [facility] UROBILINOGEN Negative Negative [facility] NIT[facility] Negative Negative [facility] Leukocyte esterase, ur Negative Negative [facility] Urine (Urine) 03/28/2025 7:4 1 AM EDT 03/28/2025 9:05 AM EDT Result [place] Juju Sibley CNP URINE ORDERABLES Final Result Performing Organization Address [facility] Co de Phone Number [place] [phone] * MICROALBUMIN/CREATININE, RANDOM URINE (03/28/2025 7:41 AM EDT) MICROALB/CRE RATIO TOO LOW TO CALCULATE <30.0 mg/g Cre [facility] 03/28/2025 7:41 AM EDT 03/28/2025 9:05 AM EDT Result [place] Juju Sibley CNP URINE ORDERABLES Final Result Performing Organization Address City/[facility] Co de Phone Number [address] [address] * TOTAL PROTEIN CREATININE RATIO, RANDOM URINE (03/28/2025 7:41 AM EDT) URINE TOTAL PROTEIN <4.0 0.0 - 13.5 mg/dL [facility] URINE CREATININE 25 mg/dL [facility] URINE TP CRE RATIO TOO LOW TO CALCULATE <0.15 [facility] Urine (Urine) 03/28/2025 7:4 1 AM EDT 03/28/2025 9:05 AM EDT us Juju Sibley CNP URINE ORDERABLES Final Result Performing Organization Address City/[facility]/ZIP Co de Phone Number [address] [address] * Heparin PF4 antibody (HIT) (03/28/2025 7:41 AM EDT) Pathologist [facility] HIT IGG ANTIBODY Negative Negative [facility] Comment: This result indicates no heparin dependent, platelet factor 4 antibodies and is inconsistent with heparin induced thrombocytopenia (HIT) with a post test probability <2%. However, clinical correlation is recommended and additional testing including a functional assay such as the serotonin release assay (ANDRE) and a hematology consult is warranted if clinically indicated (intermediate to high pretest probability using 4T's score). Heparin PF4 Antibody 0.00 U/mL [facility] Comment:Nighat ACOSTA, Jericho FAM, Marcia WATERS, Nikhil EDWARDS, Olivia I. High sensitivity and specificity of an automated IgG specific chemiluminescence immunoassay for diagnosis of HIT. Blood. 2017Mar 06 132(12):1345 to 1349. doi: 10.1182/blood 2018 027362. Epub 2017Jan 14. PMID: [id number] PMCID: [id number]. Blood 03/28/2025 7:41 AM EDT 03/28/2025 8:16 AM EDT Juju Maryjotara QUARLES LAB BLOOD ORDERABLES Final Re sult Performing Organization Address City/[facility] Co de Phone Number [facility] [address] [place] [id number] * Microalbumin, Urine (03/28/2025 7:41 AM EDT) Pathologist [facility] URINE MICROALBUMIN <0.2 0.0 - 2.0 mg/dL [facility] 03/28/2025 7:41 AM EDT 03/28/2025 9:05 AM EDT Juju Maryjo [facility] URINE ORDERABLES Final Result Performing Organization Address City/[facility]/ZIP Co de Phone Number [address] [address] * (ABNORMAL) SPEP PANEL (03/28/2025 7:41 AM EDT) Total Protein 4.8(L) 6.0 - 8.3 g/dL [facility] IMMUNOGLOBULIN G 669 614 - 1,295 mg/dL [facility] IgA 154 69 - 309 mg/dL [facility] IMMUNOGLOBULIN M 43(L) 53 - 334 mg/dL [facility] SPEP Normal pattern [facility] Comment: Normal SPEP: Normal pattern Performing Pathologist, Stan Ambriz M.D., Ph.D. [phone] Serum protein electrophoresis results should be evaluated in the context of separately reported serum free light chain levels and ratio when these additional results are available. Blood 03/28/2025 7:41 AM EDT 03/28/2025 8:06 AM EDT Juju Sibley CNP LAB BLOOD ORDERABLES Final Re sult Performing Organization Address City/[facility] Co de Phone Number [address] [address] * (ABNORMAL) Free light chains, serum (03/28/2025 7:41 AM EDT) FREE KAPPA LT CHAIN 39.0(H) 3.3 - 19.4 mg/L [facility] FREE LAMBDA LT CHAIN 33.7(H) 5.7 - 26.3 mg/L [facility] FREE KAPPA LAMBDA RAT 1.16 0.30 - 1.70 [facility] Blood 03/28/2025 7:41 AM EDT 03/28/2025 8:06 AM EDT Juju Sibley CNP LAB BLOOD ORDERABLES Final Re sult [address] [address] * XR Chest Portable (03/27/2025 10:44 PM EDT) Anatomical Region Laterality Modality Chest Computed Radiogr aphy 03/28/2025 8:53 AM EDT Impressions 03/28/2025 8:55 AM EDT Interval progression of pulmonary edema with moderate bilateral pleural effusions. Hazy and consolidative opacities in the bilateral mid and lower lung zones, likely progressive atelectasis and alveolar edema. Pneumonia or aspiration should also be considered in the appropriate clinical setting. Lines and tubes as detailed in the report. Narrative 03/28/2025 8:55 AM EDT XR CHEST PORTABLE Referring clinician's provided indication for this examination in [facility]: Pulmonary Edema COMPARISON: XR CHEST PORTABLE 2024- FINDINGS: Devices/Tubes/Lines: PA catheter tip terminates in the RIGHT main pulmonary artery. Mediastinal tube is present. EKG leads overlie the patient. LEFT chest tube is unchanged. Lungs: Pulmonary edema has progressed. Hazy and consolidative opacities in the bilateral mid and lower lung zones are unchanged. Pleura: There are moderate bilateral pleural effusions. Heart/Mediastinum: Unchanged in appearance. Bones/Soft Tissues: Thoracic skeleton is unchanged. Procedure Note Johnny Sanchez MD - 03/28/2025 XR CHEST PORTABLE Referring clinician's provided indication for this examination in [facility]:Pulmonary Edema COMPARISON: XR CHEST PORTABLE 2024- FINDINGS: Devices/Tubes/Lines: PA catheter tip terminates in the RIGHT mainpulmonary artery. Mediastinal tube is present. EKG leads overlie thepatient. LEFT chest tube is unchanged. Lungs: Pulmonary edema has progressed. Hazy and consolidative opacities inthe bilateral mid and lower lung zones are unchanged. Pleura: There are moderate bilateral pleural effusions. Heart/Mediastinum: Unchanged in appearance. Bones/Soft Tissues: Thoracic skeleton is unchanged. IMPRESSION: Interval progression of pulmonary edema with moderate bilateral pleuraleffusions. Hazy and consolidative opacities in the bilateral mid and lower lungzones, likely progressive atelectasis and alveolar edema. Pneumonia oraspiration should also be considered in the appropriate clinicalsetting. Lines and tubes as detailed in the report. Juju Sibley CNP [facility]R CHEST Final Result * (ABNORMAL) Oxygen saturation, arterial (03/26/2025 9:32 PM EDT) O2 Sat (SO2, arterial) 92.9(L) 94.0 - 99.0 % [facility] Blood 03/26/2025 9:32 PM EDT 03/26/2025 9:35 PM EDT Nicolette Pike CNP, DNP LAB BLOOD ORDERAB LES Final Result [address] [address] * XR Chest Portable (03/26/2025 8:48 PM EDT) Anatomical Region Laterality Modality Chest Computed Radiogr aphy 03/27/2025 9:06 AM EDT Impressions 03/27/2025 9:07 AM EDT Lines and tubes as described. No visible pneumothorax. Cardiomegaly with persistent pulmonary edema and small pleural effusions. Lower lobe opacities may reflect atelectasis, aspiration or pneumonia. Narrative 03/27/2025 9:07 AM EDT XR CHEST PORTABLE Referring clinician's provided indication for this examination in [facility]: Pulmonary Edema COMPARISON: XR CHEST PORTABLE 02:47:41.000 FINDINGS: Devices/Tubes/Lines: Pulmonary serial catheter inserted via right internal jugular approach terminates in the main pulmonary artery. There are mediastinal drains in place. Lungs: Persistent pulmonary edema. Patchy lower lobe opacities. Pleura: Small pleural effusions. No pneumothorax Heart/Mediastinum: Stably enlarged Bones/Soft Tissues: Unchanged Procedure Note Cinda Penaloza MD - 03/27/2025 XR CHEST PORTABLE Referring clinician's provided indication for this examination in [facility]:Pulmonary Edema COMPARISON: XR CHEST PORTABLE 02:47:41.000 FINDINGS: Devices/Tubes/Lines: Pulmonary serial catheter inserted via right internaljugular approach terminates in the main pulmonary artery. There aremediastinal drains in place. Lungs: Persistent pulmonary edema. Patchy lower lobe opacities. Pleura: Small pleural effusions. No pneumothorax Heart/Mediastinum: Stably enlarged Bones/Soft Tissues: Unchanged IMPRESSION: Lines and tubes as described. No visible pneumothorax. Cardiomegaly with persistent pulmonary edema and small pleural effusions.Lower lobe opacities may reflect atelectasis, aspiration or pneumonia. Juju Sibley CNP IMG XR CHEST Final Result * Fibrinogen (03/26/2025 3:10 AM EDT) Only the most recent of3 resultswithin the time period is included. FIBRINOGEN 286 200 - 400 mg/dL [facility] Blood 03/26/2025 3:10 AM EDT 03/26/2025 3:37 AM EDT Nicolette Pike LABORATORY OPERATIONS COORDINATOR, DNP LAB BLOOD ORDERAB LES Final Result [address] [address] * XR Chest Portable (03/26/2025 2:49 AM EDT) Anatomical Region Laterality Modality Chest Computed Radiogr aphy 03/26/2025 11:0 3 AM EDT Impressions 03/26/2025 12:48 PM EDT Tubes and lines as described. No pneumothorax. Increased bibasilar patchy opacities, likely atelectasis. Superimposed pneumonia/aspiration cannot be entirely excluded. Small bilateral pleural effusions have increased. New mild pulmonary edema. ATTESTATION: I, Dr. Ana Flores as teaching physician, have reviewed the images for this case and if necessary edited the report originally created by Danica Junior. Narrative 03/26/2025 12:48 PM EDT XR CHEST PORTABLE Referring clinician's provided indication for this examination in [facility]: Post-Op; cardiac surgery COMPARISON: XR CHEST PORTABLE FINDINGS: Devices/Tubes/Lines: Interval removal of endotracheal and enteric tubes. Right IJ approach pulmonary artery catheter tip terminates in the right pulmonary artery, unchanged in location. Mediastinal drains remain in place. Lungs: Interval increase in bibasilar patchy opacities. New mild pulmonary edema. Pleura: Small bilateral pleural effusions have increased. No pneumothorax. Heart/Mediastinum: Expected post-surgical changes following median sternotomy and cardiac surgery. Left atrial appendage clip. Aortic valve replacement. Bones/Soft Tissues: Median sternotomy with unchanged appearance of the sternal wires. Procedure Note Ana Flores MBBS - 03/26/2025 XR CHEST PORTABLE Referring clinician's provided indication for this examination [facility] [facility] COMPARISON: XR CHEST PORTABLE FINDINGS: Devices/Tubes/Lines: Interval removal of endotracheal and enteric tubes.Right IJ approach pulmonary artery catheter tip terminates in the rightpulmonary artery, unchanged in location. Mediastinal drains remain inplace. Lungs: Interval increase in bibasilar patchy opacities. New mild pulmonaryedema. Pleura: Small bilateral pleural effusions have increased. Nopneumothorax. Heart/Mediastinum: Expected post-surgical changes following mediansternotomy and cardiac surgery. Left atrial appendage clip. Aortic valvereplacement. Bones/Soft Tissues: Median sternotomy with unchanged appearance of thesternal wires. IMPRESSION: Tubes and lines as described. No pneumothorax. Increased bibasilar patchy opacities, likely atelectasis. Superimposedpneumonia/aspiration cannot be entirely excluded. Small bilateral pleural effusions have increased. New mild pulmonary edema. ATTESTATION: IDr. Ana as teaching physician, have reviewed theimages for this case and if necessary edited the report originally createdby Danica Junior. Nicolette Pike LABORATORY OPERATIONS COORDINATOR, DNP IMG XR CHEST F inal Result * XR Chest Portable (03/25/2025 3:01 PM EDT) Anatomical Region Laterality Modality Chest Computed Radiogr aphy 03/25/2025 3:05 PM EDT Impressions 03/25/2025 3:19 PM EDT Status post median sternotomy and ascending aortic aneurysm graft replacement and PFO closure. No pneumothorax. Bibasilar patchy opacities, likely atelectasis. Low lung volumes. Trace bilateral pleural effusions. ATTESTATION: IDr. Prasanth as teaching physician, have reviewed the images for this case and if necessary edited the report originally created by Jacquelyn Mcleod. Narrative 03/25/2025 3:19 PM EDT XR CHEST PORTABLE Referring clinician's provided indication for this examination in [facility]: Post-Op; cardiac surgery COMPARISON: XR CHEST PA AND LATERAL 2 VIEWS FINDINGS: Devices/Tubes/Lines: Right internal jugular pulmonary catheter tip in the right main pulmonary artery. Epicardial pacer wires. Endotracheal tube tip projects approximately 4.7 cm above the bandar. Enteric tube with tip projecting over the stomach. Aortic valve repair. Mediastinal tube projects over the lower midline mediastinum. Lungs: Bibasilar patchy opacities. Low lung volumes. No pulmonary edema. Pleura: No pneumothorax. Mild blunting of the bilateral costophrenic angles. Heart/Mediastinum: Median sternotomy wires are intact. Expected post-surgical changes following median sternotomy and ascending aortic aneurysm graft placement and PFO closure. The heart size is within normal limits. Bones/Soft Tissues: Bony thorax and extrathoracic soft tissues are unchanged. Procedure Note Prasanth Hayward MD - 03/25/2025 XR CHEST PORTABLE Referring clinician's provided indication for this examination in Epic:Post-Op; cardiac surgery COMPARISON: XR CHEST PA AND LATERAL 2 VIEWS FINDINGS: Devices/Tubes/Lines: Right internal jugular pulmonary catheter tip in theright main pulmonary artery. Epicardial pacer wires. Endotracheal tube tipprojects approximately 4.7 cm above the bandar. Enteric tube with tipprojecting over the stomach. Aortic valve repair. Mediastinal tubeprojects over the lower midline mediastinum. Lungs: Bibasilar patchy opacities. Low lung volumes. No pulmonary edema. Pleura: No pneumothorax. Mild blunting of the bilateral costophrenicangles. Heart/Mediastinum: Median sternotomy wires are intact. Expectedpost-surgical changes following median sternotomy and ascending aorticaneurysm graft placement and PFO closure. The heart size is within normallimits. Bones/Soft Tissues: Bony thorax and extrathoracic soft tissues areunchanged. IMPRESSION: Status post median sternotomy and ascending aortic aneurysm graftreplacement and PFO closure. No pneumothorax. Bibasilar patchy opacities, likely atelectasis. Low lung volumes. Trace bilateral pleural effusions. ATTESTATION: I, Dr. Prasanth Hayward as teaching physician, have reviewedthe images for this case and if necessary edited the report originallycreated by Jacquelyn Mcleod. Nicolette Pike LABORATORY OPERATIONS COORDINATOR, DNP IMG XR CHEST F inal Result * MRSA Nasal Screen (03/25/2025 1:45 PM EDT) Special Requests No Special Requests 03/25/2025 1:45 PM EDT [facility] MRSA Nasal Culture NEGATIVE FOR MRSA 03/26/2025 2:03 PM EDT [facility] Other (Nasal) 03/25/2025 1:4 5 PM EDT 03/25/2025 5:18 PM EDT Nicloette Pike CNP, [facility] MICROBIOLOGY - GE NERAL ORDERABLES Final Result Performing Organization Address [facility] Co de Phone Number [place] [phone] * Vancomycin Resistant Enterococci (VRE), Rectal Screen (03/25/2025 1:45 PM EDT) Special Requests No Special Requests 03/25/2025 1:45 PM EDT [facility] VRE Rectal Culture NEGATIVE FOR VRE 03/26/2025 2:16 PM EDT [facility] Stool (Stool swab) 03/25/2025 1:45 PM EDT 03/25/2025 5:20 PM EDT us Nicolette Pike CNP, [facility] MICROBIOLOGY - GE NERAL ORDERABLES Final Result Performing Organization Address [facility] de Phone Number [address] [address] * CB COMP PROBE PLACED BY PREMA W/ COLOR FLOW AND COMP DOPPLER (03/25/2025 1:23 PM EDT) Body Surface Area 1.79 m2 Anatomical Region Laterality Modality Heart Ultrasound Narrative 04/05/2025 8:42 PM EDT General Findings The image quality was good (2). Left Ventricle - Pre There is normal left ventricular systolic function. Left Ventricle - Post There is normal left ventricular systolic function. Right Ventricle - Pre There is normal right ventricular systolic function. Right Ventricle - Post There is normal right ventricular systolic function. Left Atrium - Pre There is no thrombus detected in the left atrium or atrial appendage. There is normal appendage emptying flow velocity. Left Atrium - Post There is no thrombus detected in the left atrium or atrial appendage. There are normal flow patterns in the pulmonary vein. Right Atrium - Pre There is a catheter present in the right atrium. Right Atrium - Post There is a catheter present in the right atrium. Mitral Valve - Pre There is mild to moderate mitral regurgitation. Mitral Valve - Post There is mild to moderate mitral regurgitation. Aortic Valve - Pre The aortic valve is tricuspid. There is no aortic stenosis. There is severe aortic regurgitation. Jet direction is eccentrically directed towards the septum. The mechanism of AI is right coronary leaflet restriction and nodular calcification and fenestration of leaflet tips. There is diastolic flow reversal in the descending thoracic aorta. The aortic sinuses are normal in size. There is effacement of the sinotubular junction. The ascending aorta is dilated. There is no aortic dissection in the visualized portions of the aorta. Aortic Valve - Post There is a 21mm MagnaEase bioprosthetic aortic valve, which is well-seated. There is no aortic stenosis. There is trace aortic regurgitation. There is Grade 2 atheroma (intimal thickening). There is a surgical graft present in the ascending aorta. There is no aortic dissection in the visualized portions of the aorta. Tricuspid Valve - Pre There is trace tricuspid regurgitation. Tricuspid Valve - Post There is trace tricuspid regurgitation. Pulmonic Valve - Pre There is trace pulmonic regurgitation. Pulmonic Valve - Post There is trace pulmonic regurgitation. Pericardium - Pre There is no pericardial effusion. Pericardium - Post There is no pericardial effusion. IAS/IVS - Pre There is evidence of a patent foramen ovale (PFO) by Doppler and agitated saline contrast. IAS/IVS - Post There is evidence suggestive of a patent foramen ovale (PFO) by Doppler. Daniela Motley MD, MPH CV ECHO ORDERABLES Final Result * POCT ACT from cardiac OR (03/25/2025 12:39 PM EDT) Only the most recent of9 resultswithin the time period is included. ACT FROM CARDIAC OR 103 90 - 130 sec [facility] 03/25/2025 12:3 9 PM EDT 03/25/2025 12:37 PM EDT Aleshia Leonard MD POINT OF CARE TEST ORDERABLES F inal Result Performing Organization Address City/[facility]/ZIP Co de Phone Number [address] [address] * POCT Heparin Protamine Titration (03/25/2025 12:39 PM EDT) Only the most recent of8 resultswithin the time period is included. Heparin Protamine Titration 0.0 u/ml [facility] Misc Test Ref Range 0.0-1.2 u/ml [facility] Comment (Coag) Red [facility] 03/25/2025 12:3 9 PM EDT 03/25/2025 12:37 PM EDT Aleshia Leonard MD POINT OF CARE TEST ORDERABLES F inal Result Performing Organization Address [facility] Co de Phone Number [address] [address] * (ABNORMAL) PUMP BLOOD GAS PLUS (03/25/2025 11:44 AM EDT) Only the most recent of6 resultswithin the time period is included. FIO2/FLOW CPB FIO2/L min [facility] TEMP. 37.0 deg C [facility] PH(UNCORRECTED) 7.43 [facility] PH 7.43 7.32 - 7.45 [facility] PCO2(UNCORRECTE D) 38 mm[Hg] [facility] PCO2 38 35 - 50 mm[Hg] [facility] PO2(UNCORRECTED ) 250 mm[Hg] [facility] PO2 250(H) 40 - 90 mm[Hg] [facility] Base Excess, unspecified 0.3 0.0 - 3.0 mmol/L [facility] HCO3, unspecified 25 24 - 30 mmol/L [facility] SODIUM 137 135 - 145 mmol/L [facility] POTASSIUM 5.1(H) 3.5 - 5.0 mmol/L [facility] HGB (BG) 7.6(L) 12.0 - 16.0 g/dl [facility] IONIZED CALCIUM 0.89(L) 1.14 - 1.30 mmol/L [facility] Glucose, whole bld 126(H) 70 - 110 mg/dL [facility] SO2, unspecified 99.6 94.0 - 99.9 % [facility] Comment: SO2 Reference Range: Arterial: 94.0-99.9 Venous: 60.0-85.0 Blood 03/25/2025 11:4 4 AM EDT 03/25/2025 11:49 AM EDT us Say Mayo MD LAB BLOOD ORDERABLES Final Result [address] [address] * Anatomic Pathology (03/25/2025 10:37 AM EDT) Report [address], [place] [address] Surgical Pathology Report Patient Name: ROSSY MITCHELL : 1945 (Age: 79) Sex: F Location: [place] [address] Institution: [facility] Date of Operation: 03/25/2025 Date of Reported: 04/06/2025 13:41 Results To: Aleshia Leonard MD FINAL PATHOLOGIC DIAGNOSIS: A. AORTA EXCISION: AORTITIS Note: The aorta shows marked elastic damage with fibrosis. Multifocal but not diffuse mononuclear inflammation, mostly T cells and macrophages with negligible plasma cells, is identified on multiple sections. Distinct giant cells are identified, A3. 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 Multiple elastic and trichrome stains were evaluated, plus immunohistochemistry for CD3, CD68, CD3, IgG, & IgG4. Reviewed at consensus conference, 04/06/[address] JR Pastrana. B. AORTIC VALVE EXCISION: Myxomatous degeneration. Electronically Signed Out By Mark Gant MD, PHD By his/her signature above, the pathologist listed as making the Final Diagnosis certifies that he/she has personally reviewed the case and confirmed the diagnosis. All slides and stains were of sufficient quality to establish the diagnosis, unless otherwise stated. CLINICAL HISTORY Aortic regurgitation and ascending aortic aneurysm; atrial fibrillation SPECIMENS SUBMITTED: A: AORTA EXCISION B: AORTIC VALVE EXCISION GROSS DESCRIPTION Received fresh in 2 parts, each labeled Rossy Mitchell and . A. Labeled aorta is a 6.5 x 6.0 x 1.4 cm aggregate of large caliber vessel fragments. The tunica externa is bautista-pink with minimal hemorrhage, and the tunica intima is white-bautista and smooth with minimal yellow plaque. Sectioning reveals a white, smooth cut surface. Lockstitch Cup Setter sections are submitted in A1-A2. Additional telephone claims representative sections are submitted in A3-A10 on 04/02/2025. B. Labeled aortic valve are 2 white-bautista, rubbery valvular cusps measuring 2.1 x 1.0 x 0.2 cm and 3.8 x 1.3 x 0.2 cm. The larger fragment appears to be 2 cusps fused at the commissure. The cusps display minimal yellow plaque, and no distinct calcifications or vegetations are identified. Also received is a 0.8 x 0.6 x 0.2 cm aggregate of white-bautista rubbery tissue fragments. Lockstitch Cup Setter sections of each cusp to include the possible fused commissure are submitted in B1. Grossed by: Mimi Campos Immunohistochemical and in-situ hybridization tests performed at [facility] have been developed and their performance characteristics determined by the [facility] Laboratories in the Department of Pathology at [facility]. They have not been cleared or approved by the U.S.Food and Drug Administration (FDA); the FDA has determined that such clearance or approval is not necessary. [facility] Clinical History Aortic regurgitation and ascending aortic aneurysm; atrial fibrillation [facility] Final Diagnosis A. AORTA EXCISION: AORTITIS Note: The aorta shows marked elastic damage with fibrosis. Multifocal but not diffuse mononuclear inflammation, mostly T cells and macrophages with negligible plasma cells, is identified on multiple sections. Distinct giant cells are identified, A3. 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 Multiple elastic and trichrome stains were evaluated, plus immunohistochemistry for CD3, CD68, CD3, IgG, & IgG4. Reviewed at consensus conference, 04/06/[address] JR Pastrana. B. AORTIC VALVE EXCISION: Myxomatous degeneration. [facility] Gross Description Received fresh in 2 parts, each labeled Rossy Mitchell and . A. Labeled aorta is a 6.5 x 6.0 x 1.4 cm aggregate of large caliber vessel fragments. The tunica externa is bautista-pink with minimal hemorrhage, and the tunica intima is white-bautista and smooth with minimal yellow plaque. Sectioning reveals a white, smooth cut surface. Lockstitch Cup Setter sections are submitted in A1-A2. Additional telephone claims representative sections are submitted in A3-A10 on 04/02/2025. B. Labeled aortic valve are 2 white-bautista, rubbery valvular cusps measuring 2.1 x 1.0 x 0.2 cm and 3.8 x 1.3 x 0.2 cm. The larger fragment appears to be 2 cusps fused at the commissure. The cusps display minimal yellow plaque, and no distinct calcifications or vegetations are identified. Also received is a 0.8 x 0.6 x 0.2 cm aggregate of white-bautista rubbery tissue fragments. Lockstitch Cup Setter sections of each cusp to include the possible fused commissure are submitted in B1. [facility] Conversion Type 03/25/2025 1 0:37 AM EDT 03/25/2025 1:40 PM EDT us Aleshia Leonard MD PATHOLOGY ORDERABLES Edited Res ult - Final [address] [address] * [place] INSERT/PLACE FLOW DIRECT CATH PERF, ANES DOUBLE LUMEN SHEATH - PA LINE, ANES VIP PLUS CATH - CENTRAL PA LINE (03/25/2025 8:36 AM EDT) Narrative Say Mayo MD - 03/25/2025 8:36 AM EDT Say Mayo MD 03/25/2025 8:36 AM Pulmonary Artery Line Placement Procedure Note: Start time: 03/25/2025 8:18 AM Anesthesiologist: Say Mayo MD Fellow/Resident/DIRECTOR OF OCCUPATIONAL HEALTH: Daniela Motley MD, MPH Performed: fellow/resident/DIRECTOR OF OCCUPATIONAL HEALTH [place] Protocol performed: consent obtained, patient identified with 2 identifiers, correct procedure verified, correct site and laterality confirmed, verified equipment, coagulation status reviewed and implant history reviewed. . Indication: Indication: hemodynamic monitoring, vasoactive IV medications and vascular access. Central line Checklist: emergency line placement? no timeout performed? yes hand hygiene performed prior to central venous catheter insertion? yes procedure site disinfected per protocol? yes site allowed to dry for 30 seconds? yes personal protection worn? yes catalog library assistant followed standard precautions? yes sterile technique used to drape from head to toe? yes sterile field maintained during procedure? yes guidewires and dilators removed? yes line flushed and capped before removal of drapes? yes dressing applied to site? yes break in sterile procedure? no. Technique: Technique: live ultrasound and surface landmarks Number of Attempts: 1 Venous verification: non-pulsatile flow, wire visualized in SVC/RA by CB and wire visualized in vein by ultrasound Procedure details: Location: right internal jugular Skin prep: chloraprep Central venous catheter type: MAC introducer PA catheter type: VIP+ Ultrasound: Ultrasound image: saved Ultrasound visualization: good Post Procedure: Post Procedure:blood removed, chlorhexidine patch applied, dressing applied and line sutured Assessment/Verification: blood return through port and free fluid flow Complications?: No us Say Mayo MD [place] ANESTHESIA Final Resul t * [place] ECHO HEART TRANSESOPH PROBE PLACEMT PERF (03/25/2025 8:36 AM EDT) Narrative Say Mayo MD - 03/25/2025 8:36 AM EDT Say Mayo MD 03/25/2025 8:36 AM Transesophageal Echocardiogram Procedure Note: Performed by: anesthesiologist Anesthesiologist: Say Mayo MD [place] Protocol performed: consent obtained, patient identified with 2 identifiers, correct procedure verified, correct site and laterality confirmed, verified equipment, coagulation status reviewed and implant history reviewed. Placement notes: probe advanced in esophagus atraumatic Say Mayo MD [place] ANESTHESIA Final Resul t * [place] INSERT CATH ART PERCUT SHORTTERM PERF (03/25/2025 8:35 AM EDT) Narrative Say Mayo MD - 03/25/2025 8:35 AM EDT Say Mayo MD 03/25/2025 9:20 AM Arterial Line Placement Procedure Note: Start Time 03/25/2025 7:22 AM: Location: pre-op Procedure performed by: fellow/resident/DIRECTOR OF OCCUPATIONAL HEALTH Anesthesiologist: Say Mayo MD Fellow/Resident/DIRECTOR OF OCCUPATIONAL HEALTH: Daniela Motley MD, MPH Indication(s): hemodynamic monitoring, arterial blood gas and frequent labs [place] Protocol performed: consent obtained, patient identified with 2 identifiers, correct procedure verified, correct site and laterality confirmed, verified equipment, coagulation status reviewed and implant history reviewed. Procedure details: Skin prep: chlorhexidine gluconate Skin prep agent completely dried prior to procedure. Insertion site scrubbed for 30 seconds. Sterile barriers: hands washed, cap, mask, prep and drape and sterile gloves used Laterality: right Location: radial artery Catheter type: Arrow Catheter size: 20 G Technique: Technique: Seldinger technique Number of attempts: 1 Ultrasound: Ultrasound image: not saved Ultrasound visualization: good Post Procedure: Post procedure: dressing applied Patient tolerance: patient tolerated the procedure well with no immediate complications Transducer type: regular us Say Mayo MD [place] ANESTHESIA Edited Resu lt - Final * POCT heparin dose response (03/25/2025 7:55 AM EDT) Only the most recent of2 resultswithin the time period is included. ACT FROM CARDIAC OR 126 90 - 130 sec [facility] Projected heparin concentration 4.6 u/ml [facility] Heparin dose response 71 50 - 120 sec [facility] 03/25/2025 7:55 AM EDT 03/25/2025 8:00 AM EDT us Aleshia Leonard MD POINT OF CARE TEST ORDERABLES F inal Result [address] [address] * ANES ETT DOUBLE LUMEN - AIRWAY LDA (03/25/2025 7:46 AM EDT) Narrative Say Mayo MD - 03/25/2025 7:46 AM EDT Say Mayo MD 03/25/2025 8:36 AM Airway Placement Procedure Note: Patient was not difficult to intubate. Procedure performed by: fellow/resident/DIRECTOR OF OCCUPATIONAL HEALTH Anesthesiologist: Say Mayo MD Fellow/Resident/DIRECTOR OF OCCUPATIONAL HEALTH: Daniela Motley MD, MPH Airway procedure initiated at:03/25/2025 7:46 AM and ended at. Personal Protective Equipment: Mask: surgical mask Gloves: gloves Mask Ventilation: Quality: easy Adjunct: jaw thrust Airway Placement: Technique: direct laryngoscopy Rapid sequence induction: no Details: Blade type: Mac Blade size: 3 Direct view: grade 1 Number of attempts: 1 ETT type: cuffed ETT size: 7.5 ETT depth at teeth: 21 Tube position confirmed by: EtCO2 Outcomes: Evidence of dental injury? no Complications observed? no Notes: Preoxygenated to ETO2 >80%. Eyes taped prior to airway placement. Atraumatic intubation, vocal cords clear, dentition as preop. Soft bite block in place, tongue in neutral position. Say Mayo MD [place] ANESTHESIA Final Resul t * ANESTHESIA POINT OF CARE IMAGE CAPTURE (03/25/2025 7:13 AM EDT) Anatomical Region Laterality Modality Ultrasound Narrative 03/25/2025 7:13 AM EDT Daniela Motley MD, MPH 03/25/2025 7:13 AM Anesthesia Point of Care Image Capture Performed by: Say Mayo MD Authorized by: Say Mayo MD Accession Number: [id number] Say Mayo MD IMG POINT OF CARE EXAMS Fin al Result * ANESTHESIA POINT OF CARE IMAGE CAPTURE (03/25/2025 6:28 AM EDT) Anatomical Region Laterality Modality Ultrasound Narrative 03/25/2025 6:28 AM EDT Dainela Motley MD, MPH 03/25/2025 6:28 AM Anesthesia Point of Care Image Capture Performed by: Daniela Motley MD, MPH Authorized by: Say Mayo MD Accession Number: [id number] Say Mayo MD IMG POINT OF CARE EXAMS Fin al Result * XR CHEST PA AND LATERAL 2 [...] clinician's provided indication for this examination in Epic: Pre-Op COMPARISON: None available. FINDINGS: Devices/Tubes/Lines: None. Lungs: No focal consolidation or pulmonary edema. Pleura: No pleural effusion or pneumothorax. Heart/Mediastinum: Borderline enlargement of the cardiomediastinal silhouette. Bones/Soft Tissues: Postsurgical changes in the left breast. Degenerative changes of the bones. Procedure Note Dominik Dowell MD - 03/12/2025 XR CHEST PA AND LATERAL 2 VIEWS Referring clinician's provided indication for this examination in Epic:Pre-Op COMPARISON: None available. FINDINGS: Devices/Tubes/Lines: None. Lungs: [...] S.aureus) NEGATIVE FOR MRSA (Methicillin Resistant S.aureus) [facility] MSSA PCR SCREEN NEGATIVE FOR MSSA (Methicillin Susceptible S.aureus) NEGATIVE FOR MSSA (Methicillin Susceptible S.aureus) [facility] Comment:This test was conduc rafael as part of Pre-Operative Screening for Staphylococcus aureus. Please direct any questions regarding this result to the Ordering Provider. Nasal (Nasal) 03/12/2025 3:4 6 PM EDT 03/12/2025 5:47 PM EDT Olivier PFEIFFER NON CULTURE MICROBIOLOGY Jessica l Result [address] [address] * (ABNORMAL) Comprehensive metabolic panel (03/12/2025 3:46 PM EDT) Only the most recent of2 resultswithin the time period is included. SODIUM 142 135 - 145 mmol/L [facility] POTASSIUM 4.6 3.4 - 5.0 mmol/L [facility] CHLORIDE 105 98 - 108 mmol/L [facility] CO2 25 23 - 32 mmol/L [facility] BUN 30(H) 8 - 25 mg/dL [facility] CREATININE 2.01(H) 0.50 - 1.00 mg/dL [facility] GLUCOSE 86 70 - 110 mg/dL [facility] ALBUMIN 4.0 3.3 - 5.0 g/dL [facility] TOTAL PROTEIN 6.8 6.0 - 8.3 g/dL [facility] CALCIUM 9.4 8.5 - 10.5 mg/dL [facility] ALKALINE PHOSPHATASE 46 30 - 100 U/L [facility] TOTAL BILIRUBIN 0.4 0.0 - 1.0 mg/dL [facility] AST 16 9 - 32 U/L [facility] ALT 13 7 - 33 U/L [facility] GLOBULIN 2.8 1.9 - 4.1 g/dL [facility] EGFR 25(L) >59 mL/min/1. 73m2 [facility] Comment:Estimated glomerular filtration rate calculated using the CKD-EPI refit equation. ANION GAP 12 3 - 17 mmol/L [facility] 03/12/2025 3:46 PM EDT 03/12/2025 5:50 PM EDT Olivier Tate [facility] LAB BLOOD ORDERABLES Final Re sult [address] [address] * ABO and Rh (03/12/2025 3:46 PM EDT) Expiration Date of Sample 04/07/2025 11:59 PM [facility] ABO A 04/06/2025 8:35 AM EDT [facility] Rh Positive 04/06/2025 8:35 AM EDT [facility] Comment:Patient Transfused, specimen exp. date updated Resulting Agency [facility] 03/12/2025 3:46 PM EDT 03/12/2025 5:16 PM EDT us Blood Bank BLOOD BANK TEST ORDERABLES Final Result [facility] [address] [place] [address] * (ABNORMAL) CBC and differential (03/12/2025 3:46 PM EDT) Only the most recent of3 resultswithin the time period is included. WBC 5.43 4.00 - 11.00 K/uL [facility] RBC 3.77(L) 4.00 - 5.20 M/uL [facility] HGB 11.9(L) 12.0 - 16.0 g/dL [facility] HCT 37.6 36.0 - 46.0 % [facility] PLT 255 150 - 450 K/uL [facility] MCV 99.7 80.0 - 100.0 fL [facility] MCH 31.6(H) 27.0 - 31.0 pg [facility] MCHC 31.6(L) 32.0 - 36.0 g/dL [facility] RDW 13.5 11.5 - 14.5 % [facility] MPV 10.3 8.4 - 12.0 fL [facility] NRBC 0.00 0.00 /100 WBCs [facility] ABSOLUTE NRBC 0.00 0.00 K/uL [facility] DIFF METHOD Auto [facility] NEUTS 65.7 48.0 - 76.0 % [facility] LYMPHS 20.6 18.0 - 41.0 % [facility] MONOS 10.7 4.0 - 11.0 % [facility] EOS 1.3 0.0 - 5.0 % [facility] BASOS 1.5 0.0 - 1.5 % [facility] % IMMATURE GRANS 0.2 0.0 - 0.9 % [facility] ABSOLUTE NEUTS 3.57 1.92 - 7.60 K/uL [facility] ABSOLUTE LYMPHS 1.12 0.72 - 4.10 K/uL [facility] ABSOLUTE MONOS 0.58 0.16 - 1.10 K/uL [facility] ABSOLUTE EOS 0.07 0.00 - 0.50 K/uL [facility] ABSOLUTE BASOS 0.08 0.00 - 0.15 K/uL [facility] ABS IMMATURE GRANS 0.01 0.00 - 0.09 K/uL [facility] Blood 03/12/2025 3:46 PM EDT 03/12/2025 5:48 PM EDT Olivier Tate [facility] LAB BLOOD ORDERABLES Final Re sult Performing Organization Address [facility]/ZIP Co de Phone Number [address] [address] * (ABNORMAL) Hemoglobin A1c (03/12/2025 3:46 PM EDT) HEMOGLOBIN A1C 5.8(H) 4.3 - 5.6 % [facility] Comment:HbA1c levels 5.7-6.4 % represent pre-diabetes, indicating impaired glucose control and an increased risk of developing diabetes compared with lower HbA1c levels. The diagnostic HbA1c level for diabetes is 6.5% or greater. CALC MEAN BLD GLUC 120 mg/dL [facility] Comment:There is no [facility] normal range for the Calculated Mean Blood Glucose (CMBG), however a HbA1c of 5.6% (upper limit of normal) represents a CMBG of 114 mg/dL. The diagnostic hemoglobin A1c level for diabetes is greater than or equal to 6.5% which represents a CMBG greater than or equal to 140 mg/dL. 03/12/2025 3:46 PM EDT 03/12/2025 5:49 PM EDT [facility] LAB BLOOD ORDERABLES Final Re sult Performing Organization Address [facility]/ZIP Co de Phone Number [address] [address] * Pulmonary Function Test Reason for Exam: Dyspnea/Shortness of Breath; Type of PFT Test: Spirometry with bronchodilator, DLCO, Lung Volumes; Performing Location: [facility] Main [place]; Request Procedure [place]: PFT; Type: PFT - Complete; [facility] PFT Lab will ... (03/12/2025 2:29 PM EDT) Anatomical Region Laterality Modality Other 03/12/2025 2:29 PM EDT us Aleshia Leonard MD PFT ORDERABLES Final Result [...] MD. us Bryn Curran MD IMG MR DAWN PIERRE Final Result * MRI ANGIO CHEST WITHOUT [...] report originallycreated by Nicolás Alvarez MD. Result [facility] Bryn Curran MD IMG MR VAUGHN T Final Result * Outside Cath Study (02/12/2025 1:08 PM EDT) Other Narrative SYSTEMGENERATED, DOCUMENTATION - 02/12/2025 1:08 PM EDT Outside Images for comparison purposes only. Result [facility] Admitting CV CARDIAC CATH ORDERABLE S Final Result * Outside Echo Report Only (02/12/2025 1:08 PM EDT) Other Narrative SYSTEMGENERATED, DOCUMENTATION - 02/12/2025 1:08 PM EDT Outside Images for comparison purposes only. Result [facility] Admitting CV ECHO ORDERABLES Final Result * Outside Echo Report Only (02/12/2025 1:08 PM EDT) Other Narrative SYSTEMGENERATED, DOCUMENTATION - 02/12/2025 1:08 PM EDT Outside Images for comparison purposes only. Result [facility] Admitting CV ECHO ORDERABLES Final Result [...] obtained by: Consent obtained with help of Bermudian mounter flutes and piccolos as well as family members. Frannie Alves [...] Yuen MD - 02/09/2025 11:04 AM EDT [facility] Patient Name: Rossy Mitchell Procedure Date: 02/09/2025 11:04 AM Date of : 1945 Age: 79 Gender: Female Attending MD: Anastacio Yuen MD, Instrument Name: [id number] Diagnostic EGD Procedure: Upper GI endoscopy Indications: Esophageal dysphagia, EGD evaluation prior to CB Providers: Anastacio Yuen MD, Trini Hassan, ALEXEY, Raymond Green,ALEXEY Medicines: Monitored Anesthesia Care Referring MD: Carolina [...] infection, need for surgery, blood transfusions (unless Shinto),heart and respiratory complications amongst others. The endoscope [...] specimens collected. Recommendation: - Refer to a crib pad maker as previously scheduled.The CB will be scheduled and endoscopy forcontinuation of her sedation for patient's convenience Anastacio Yuen MD 02/09/2025 11:53:27 AM This report has been signed electronically. Number of Addenda: 0 Estimated Blood Loss: Estimated blood loss: none. [address] [place] [phone] us Unknown Unknown GI PROCEDURE ORDERABLES Final [...] micropuncture kit. Sheath upsized to 7F sheath. Vassar-Srikanth catheter advanced and balloon inflated. Catheter passed [...] achieved with manual pressure and TR Band. IBryn MD, was personally present for the length [...] CARDIAC CATH ORDERABLES Final Result * (ABNORMAL) Lipid profile with direct LDL (01/18/2025 1:43 PM EDT) [facility] CHOLESTEROL 210(H) 0 - 200 mg/dL [facility] TRIGLYCERIDES 118 0 - 150 mg/dL [facility] HDL 66 40 - 80 mg/dL [facility] LDL Chol (Direct) 134(H) 0 - 130 mg/dL [facility] CARDIAC RISK RATIO 3.2 W [facility] Blood 01/18/2025 1:43 PM EDT 01/18/2025 1:46 PM EDT us Bryn Curran MD LAB BLOOD O RDERABLES Final Result Performing Organization Address [facility]/State/ZIP Co de Phone Number [address] [phone] * TSH with reflex (01/18/2025 1:43 PM EDT) [facility] SCREENING PANEL: TSH 2.77 0.34 - 5.9 uIU/mL [facility] Blood 01/18/2025 1:43 PM EDT 01/18/2025 1:46 PM EDT Bryn Curran MD LAB [place]OD [place] [address], [facility] [phone] * NT-proBNP (01/18/2025 1:43 PM EDT) NT-PROBNP 628 0 - 1,800 pg/mL [facility] Blood 01/18/2025 1:43 PM EDT 01/18/2025 1:46 PM EDT us Bryn Curran MD LAB BLOOD O RDERABLES Final Result Performing Organization Address City/[facility]/[place] [address], [facility] [phone] from Last 3 Months Insurance MEDICARE PART A & B MEDICARE PART A & B MEDICARE PART A & B MEDICARE PART A & B MEDICARE PART A & B MEDICARE PART A & B Advance Directives For more information, please contact: [phone] (9AM - 5PM [facility], Saturday-Saturday) Documents on File Type Date Recorded Patient Lockstitch Cup Setter Expl anation Healthcare Proxy 03/12/2025 1:59 PM Advance Directive - Non Epic LMR 10/10/2009 12:00 AM * Full Code (Latest Code Status on File) Date Activated Date Inactivated Comments 03/25/2025 1:44 PM Question Answer Comments Code Status Confirmed With: Other (specify below ) Code Discussion Comments: OR Care Teams Bung Remover Relationship Specialty Start Date End Date Carolina Madison MD [address] [place] [address] PCP - General Internal Medicine 12/10/24 Aleshia Leonard MD [address] [address] [email or web address] Thoracic Surgery 01/26/25 Bryn Dominguez MD [address] [place] [address] [email or web address] Cardiology 02/25/25 Ivonne Chicas APRN [address] [place] [address] [email or web address] Nurse Practitioner 04/06/25 Additional Source Comments The information contained in this document represents components of the legal health record. It is not the complete legal health record.[facility]
== END 2025-04-13 10:54 | disposition home or self-care (01) ==
LOC: HO.HKA 10:29
PROVIDERS: PCP Internal Medicine; Visit Provider Internal Medicine Hypertension Specialist
DX: I12.9 Hypertensive chronic kidney disease with stage 1 through stage 4 chronic kidney disease, or unspecified chronic kidney disease (principal); N18.4 Chronic kidney disease, stage 4 (severe)
CPT/HCPCS: 99214

== ENCOUNTER → 2025-04-13 10:28 | Outpatient (BNVA) | payer MEDICARE, SELFPAY | PROVIDERS: PCP Internal Medicine; Visit Provider Internal Medicine Hypertension Specialist | DX: I12.9 Hypertensive chronic kidney disease with stage 1 through stage 4 chronic kidney disease, or unspecified chronic kidney disease (principal); N18.4 Chronic kidney disease, stage 4 (severe) | CPT/HCPCS: 99212 ==

== ENCOUNTER 2025-04-21 12:02 | Outpatient (AMB) | payer MEDICARE, SELFPAY ==
[2025-04-21 12:19] VITALS: BP 110/66; PULSE 58; RESP 15; TEMP 36.7; O2SAT 97; BMI 28.7
--- NOTE | 2025-04-21 12:19 | MHC.PC.OV ---
Vital Signs 04/21/25 12:19 Height 5 ft 3.2 in Weight 163 lb BMI 28.7 BP 110/66 Blood Pressure Location Lt brachial Position Sitting Respiration 15 Pulse 58 Pulse Source Pulse Oximeter Temp 98.1 F Temp Source Oral Pulse Oximetry (%) 97 Oxygen Delivery Method Room Air Oxygen Flow Rate 98.1 Intake Visit Reasons: HDF cardiac surgery Intake Note: Pt is here today for a HDF. Allergies No Known Allergies Allergy (Verified 04/21/25 12:24) Medication List - Last Reconciled 04/21/25 by Carolina Madison MD acetaminophen 500 mg PO Q4-6H PRN amiodarone 200 mg PO DAILY aspirin 325 mg PO DAILY citalopram 20 mg PO DAILY docusate sodium 100 mg PO BID indapamide 1.25 mg PO QAM levothyroxine 75 mcg PO DAILY mecobalamin (vitamin B12) PO metoprolol succinate ER 12.5 mg PO DAILY polyethylene glycol 3350 (Miralax) 17 grams PO DAILY PRN warfarin 1 mg PO DAILY Tobacco use date assessed: 03/09/25 Fall risk assessment: No Falls in past year Last assessed Fall Risk: 04/21/25 Dental Screening Dental Screen Date: 11/12/24 HPI HDF cardiac surgery HPI Details Patient presents for hospitalization at [facility]. She underwent ascending aorta aneurysm graft placement and bioprosthetic aortic valve replacement on March 25. Patient has been home for the last week ambulating without difficulties having good appetite and denies any chest pain shortness or breath or palpitations. For atrial fibrillation she was started on Coumadin and will continue for 3 months being monitored by Cou[facility]in Clinic at [facility]. Patient developed worsening of her baseline chronic kidney disease during the hospitalization but has been slowly improving. Patient is established with pack puller. She has a follow-up appointment with the Cardiology and cardiac surgeon at [facility] in the next few weeks. [facility] Medical History Anxiety Bradycardia CKD (chronic kidney disease) stage 4, GFR 15-29 ml/min Sleep apnea Aortic regurgitation GERD (gastroesophageal reflux disease) A-fib HTN (hypertension) Surgical History (Updated 04/21/25 @ 15:40 by Carolina Madison MD) History of aortic valve replacement with bioprosthetic valve S/P ascending aortic aneurysm repair History of open heart surgery (~03/2025) Hx of thyroidectomy Hx of breast surgery History of back surgery Family History Father Hypertension Heart attack Mother No problems noted. Social History Household Members Other:: , lives in [place] for most of the year Housing: House Patient Tobacco Use Status: Former Tobacco user e-Cigarette/Vaping Use: Never Used service: No Current occupational status: retired Cognitive needs: No Hearing needs: No Vision needs: Yes Questionnaire PHQ-9 Over the last 2 weeks, how often have you been bothered by any of the following problems? 1. Little interest or pleasure in doing things: not at all 2. Feeling down, depressed, or hopeless: not at all 3. Trouble falling or staying asleep, or sleeping too much: not at all 4. Feeling tired or having little energy: not at all 5. Poor appetite or overeating: several days 6. Feeling bad about yourself - or that you are a failure or have let yourself or your family down: not at all 7. Trouble concentrating on things, such as reading the newspaper or watching television: not at all 8. Moving or speaking so slowly that other people could have noticed. Or the opposite - being so fidgety or restless that you have been moving around a lot more than usual: not at all 9. Thoughts that you would be better off or of hurting yourself in some way: not at all Total score: 1 Depression Screening Interpretation: Negative Depression Screening Done: Yes Source: Developed by Drs. Candido De Oliveira, [place], Jomar Diamond and colleagues, with an educational jeny from [employer]. Thrive Questionnaire Date Thrive assessed: 12/04/24 I am a: Patient What is your living situation today?: I have a steady place to live Within the past 12 months, did the food you bought not last and you didn't have the money to get more?: Never true Within the past 12 months, did you worry whether your food would run out before you got money to buy more?: Never true Do you have trouble paying for medicines?: Yes Do you have trouble getting transportation to medical appointments?: No Do you have trouble paying your heating and electricity bill?: No Do you have trouble taking care of your child, family member or friend?: No Do you have trouble with day-to-day activities such as bathing, preparing meals, shopping, managing finances, etc.?: No Are you currently unemployed and looking for a job?: No Are you interested in more education?: No Please select the resources that you would like help with: Paying for medicine Currently or been in a relationship where the following occur: No concerns reported THRIVE Score: 0 JEREMY-7 AMB Questionnaire JEREMY-7 Date JEREMY - 7 assessed: 03/09/25 Feeling nervous, anxious, or on edge: 0 = Not at all Not being able to stop or control worryin = Not at all Worrying too much about different things: 0 = Not at all Trouble relaxin = Not at all Being so restless that it is hard to sit still: 0 = Not at all Becoming easily annoyed or irritable: 0 = Not at all Feeling afraid as if something awful might happen: 0 = Not at all Total JEREMY-7 score (0-4 normal; 5-9 mild; 10-14 moderate; 15-21 severe): 0 Source: Developed by Drs. Candido De Oliveira, [place], Jomar Diamond and colleagues, with an educational jeny from [employer]. Review of Systems Const All systems reviewed & are unremarkable except as noted in HPI and below Card Reports no additional complaints Resp Reports no additional complaints GI Reports no additional complaints Reports no additional complaints Physical exam (Primary Care) Vital Signs: Last Vital Signs Temp 98.1 F 04/21/25 12:19 Pulse 58 04/21/25 12:19 Resp 15 04/21/25 12:19 BP 110/66 04/21/25 12:19 Pulse Ox 97 04/21/25 12:19 Oxygen Delivery Method Room Air 04/21/25 12:19 Oxygen Flow Rate 98.1 04/21/25 12:19 BMI result Body Mass Index 28.7 Tobacco/Smoking Status: Tobacco use Status Tobacco use date assessed 03/09/25 04/21/25 12:19 Patient Tobacco Use Status Former Tobacco user 04/21/25 12:19 e-Cigarette/Vaping Use Never Used 04/21/25 12:19 PHQ-9: PHQ-9 Score PHQ-9: Total score 1 04/21/25 12:27 Depression Screening Interpretation: Negative Thrive Assessment: Date of Thrive Assessment Date Thrive assessed 12/04/24 04/21/25 12:19 Currently or been in a relationship where the following occur: No concerns reported Const General: no acute distress HENMT Head: Yes normal to inspection Throat: Yes posterior oropharynx normal Neck Neck: Yes supple Resp Effort & Inspection: normal respiratory effort Auscultation: clear to auscultation bilaterally Cardio Rhythm: regular rhythm Heart sounds: S1 normal heart sound present and S2 normal heart sound present GI Inspection: Yes normal to inspection Extrem General: Yes no clubbing, cyanosis or edema Coding Level of Care Code Est Pt Level 4 (86663) Diagnoses History of aortic valve replacement with bioprosthetic valve Z95.3 A-fib I48.91 CKD (chronic kidney disease) stage 4, GFR 15-29 ml/min N18.4 Assessment & Plan Assessment & Plan (1) History of aortic valve replacement with bioprosthetic valve: Comment: [facility] 03/25/2025 Code(s): Z95.3 - Presence of xenogenic heart valve Category: Surgical Plan: Follow-up with cardiac surgeon (2) A-fib: Comment: 01/2024 dxd in [place] , EKG consistent with sinus bradycardia question of sick sinus syndrome Code(s): I48.91 - Unspecified atrial fibrillation Category: Medical Plan: Anticoagulated On Coumadin for 3 months as per Cardiology at [facility], continue amiodarone for rhythm control (3) CKD (chronic kidney disease) stage 4, GFR 15-29 ml/min: Code(s): N18.4 - Chronic kidney disease, stage 4 (severe) Category: Medical Plan: Avoid nephrotoxins monitor renal function follow-up with nephrology
--- OUTSIDE RECORDS SUMMARY | 2025-04-21 14:44 | XMS_ITS | Encounter Summary ---
Author Organization [facility] Address [address] [facility] [address] [place] [address] Phone Care Team Providers Care Logistics Planning Engineer Name Role Phone Carolina Madison MD Primary Care Provider [phone] Aleshia Leonard MD Unavailable [phone] Bryn Dominguez MD Unavailabl e Ivonne Chicas APRN Unavailable [phone] Encounter Details Date Type Department Care Team (Late st Contact Info) Description 01/19/2025 Procedure Pass [facility] Imaging - MRI, [address] [place] [address] [place] [address] Social History Tobacco Use Types [...] Services for Outpatient Care - [place] [address] [facility], 6th [place] [address] 04/29/2025 1:30 PM EST Office Visit [facility]iology [address] [facility] [place] [address] 05/04/2025 8:15 AM EST Appointment [facility] Services for Outpatient Care - [place] [address] [facility], [address]th [place] [address] Aleshia Leonard MD 55 [facility] [address] [place] [address] MARIA [email or web address] 05/04/2025 9:00 AM EST Office Visit [facility] Division of Cardiac Surgery [address] [facility], 6th Floor, [address] [place] [address] Aleshia Leonard MD 55 [facility] [address] [place] [address] [email or web address] 06/29/2025 8:30 AM EST Office Visit [facility] Cardiovascular Medicine [address] [facility], 5th Floor, [address] [place] [address] Geronimo Thompson MD 55 [facility] [address] [place] [phone] [email or web address] documented as of this encounter Visit Diagnoses Not on filedocumented in this encounter Additional Health Concerns Infection Onset Date Last Indicated Resolved Time CoV-Risk Comment:Per note documentation 03/28/2025 03/28/2025 9:57 AM EDT documented as of this encounter Care Teams Logistics Planning Engineer Relationship Specialty Start Date End Date Carolina Madison [place] [address] PCP - General Internal Medicine 12/10/24 Aleshia Leonard MD [address] [address] MARIA [email or web address] Thoracic Surgery 01/26/25 Bryn Dominguez MD [address] [place] [address] [email or web address] Cardiology 02/25/25 Ivonne Chicas APRN [address] [place] [address] [email or web address] Nurse Practitioner 04/06/25 documented as of this encounter Additional Source Comments The information contained in this document represents components of the legal health record. It is not the complete legal health record.[facility]
--- OUTSIDE RECORDS SUMMARY | 2025-04-21 14:45 | XMS_ITS | Encounter Summary ---
Author Organization [facility] Address [address] [address] Phone Care Team Providers Care Fire Warden Name Role Phone Carolina Madison MD Primary Care Provider [phone] Aleshia Leonard MD Unavailable [phone] Bryn Dominguez MD Unavailabl e Ivonne Chicas APRN Unavailable [phone] Reason for Visit * Reason Comments Anticoagulation Encounter Details Date Type Department Care Team (Late st Contact Info) Description 04/19/2025 Telephone [facility] Anticoagulation Clinic [address] [place] [address] [place]anne Hernandez[place] [place] [id number] [place] [address] [email or web address] Anticoagulation Social History Tobacco Use Types Packs/Day [...] Progress Notes * Arpita Murillo CMA - 04/19/2025 1:30 PM EST Called and spoke with daughter, gave coumadin regimen and recheck date. Left message on machine with Ed, [facility] vna with coumadin regimen and recheck date. * Luanne Hernandez RPH - 04/19/2025 12:42 PM EST INR today is therapeutic at 2.4 Continue warfarin 1.5 mg Tues and 1 mg all other days. Recheck INR in two weeks on 05/03/25 documented in this encounter Plan of Treatment Upcoming Encounters Date Type Department Care Team (Late st Contact Info) Description 04/05/2025 Procedure Pass [facility] for [facility] Care - [place] [address] [facility] [place] [facility], 6th [place] [address] 04/29/2025 1:30 PM EST Office Visit [facility] Cardiology [address] [place] [address] 05/04/2025 8:15 AM EST Appointment [facility] for [facility] Care - [place] [address] [facility] [place] [facility], 6th [place] [address] Aleshia Leonard MD 55 [facility] [address] [place] [address] MARIA [email or web address] 05/04/2025 9:00 AM EST Office Visit [facility] Division of Cardiac Surgery [address] [facility], 6th Floor, [address] [place] [address] Aleshia Leonard MD [address] [place] [address] [address] [place] [address] MARIA [email or web address] 06/29/2025 8:30 AM EST Office Visit [facility] Cardiovascular Medicine [address] [facility] [place] [facility], 5th Floor, [address] [place] [address] Geronimo Thompson MD [address] [phone] [email or web address] documented as of this encounter Procedures Procedure Name Priority Date/Time Associated Diagnosis Comments PT-INR Routine 04/19/2025 documented in this encounter Results * PT-INR (04/19/2025) External Or Transcribed PT-INR 2.4 Blood (Blood) Historical Provider LAB BLOOD BKR ORDERABLES Final Result documented in this encounter Visit Diagnoses Diagnosis 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 Thoracic Surgery 01/26/25 Bryn Dominguez MD [address] [place] [address] Cardiology 02/25/25 Ivonne Chicas APRN [address] [place] [address] Nurse Practitioner 04/06/25 documented as of this encounter Additional Source Comments The information contained in this document represents components of the legal health record. It is not the complete legal health record.[facility]
--- OUTSIDE RECORDS SUMMARY | 2025-04-21 14:45 | XMS_ITS | Encounter Summary ---
Author Organization [facility] Address [address] [facility] [address] [place] [address] Phone Care Team Providers Care Cvicu Rn Name Role Phone Carolina Madison MD Primary Care Provider [phone] Aleshia Leonard MD Unavailable [phone] Bryn Dominguez MD Unavailabl e Ivonne Chicas APRN Unavailable [phone] Encounter Details Date Type Department Care Team (Late st Contact Info) Description 12/22/2024 Procedure Pass [facility] Cardiology Referral Images [address] [place] [address] Social History Tobacco Use Types Packs/Day Years [...] (Late Contact Info) Description 04/05/2025 Procedure Pass [facility] - [place] [address] [facility], 6th [place] [address] 04/29/2025 1:30 PM EST Office Visit [facility] Cardiology [address] [place] [address] 05/04/2025 8:15 AM EST Appointment [facility] [place] [address] [facility], 6th [place] [address] Aleshia Leonard MD 55 [facility] 630 [place] [address] MARIA VICTORIA@[facility] 05/04/2025 9:00 AM EST Office Visit [facility] Division of Cardiac Surgery 55 [facility], 6th Floor, [address] [place] [address] Aleshia Leonard MD [address] [address] MARIA VICTORIA@[facility] 06/29/2025 8:30 AM EST Office Visit [facility] Cardiovascular Medicine [address] [facility], 5th Floor, [address] [place] [address] Geronimo Thompson MD [address] [phone] GEORGINA@[facility] documented as of this encounter Visit Diagnoses Not on filedocumented in this encounter Additional Health Concerns Infection Onset Date Last Indicated Resolved Time CoV-Risk Comment:Per note documentation 03/28/2025 03/28/2025 9:57 AM EDT documented as of this encounter Care Teams Cvicu Rn Relationship Specialty Start Date End Date Carolina Madison MD [address] [place] [address] PCP - General Internal Medicine 12/10/24 Aleshia Leonard MD [address] [address] MARIA VICTORIA@[email or web address] Thoracic Surgery 01/26/25 Bryn Dominguez MD [address] [place] [address] Cardiology 02/25/25 Ivonne Chicas APRN [address] [place] [address] [email or web address] Nurse Practitioner 04/06/25 documented as of this encounter Additional Source Comments The information contained in this document represents components of the legal health record. It is not the complete legal health record.[facility]
--- OUTSIDE RECORDS SUMMARY | 2025-04-21 14:45 | XMS_ITS | Encounter Summary ---
Author Organization [facility] Address [address] [facility] [address] [place] [address] Phone Care Team Providers Care Personal Protection Specialist Name Role Phone Carolina Madison MD Primary Care Provider [phone] Aleshia Leonard MD Unavailable [phone] Bryn Dominguez MD Unavailabl e Ivonne Chicas APRN Unavailable [phone] Encounter Details Date Type Department Care Team (Late st Contact Info) Description 02/09/2025 Procedure Pass [facility] Cath/EP Lab [address] [place] [address] Social History Tobacco Use Types [...] st Contact Info) Description 04/05/2025 Procedure Pass [facility] for Outpatient Care - [place] 32 [facility], 6th [place] [address] 04/29/2025 1:30 PM EST Office Visit [facility] Cardiology 19 [place] [address] 05/04/2025 8:15 AM EST Appointment [facility] for Outpatient Care - [place] [address] [facility], 6th [place] [address] Aleshia Leonard MD [address] [address] MARIA VICTORIA@[facility] 05/04/2025 9:00 AM EST Office Visit [facility] Division of Cardiac Surgery [address] [facility], 6th Floor, [address] [place] [address] Aleshia Leonard MD [address] [place] [address] MARIA VICTORIA@[facility] 06/29/2025 8:30 AM EST Office Visit [facility] Cardiovascular Medicine 32 [facility], 5th Floor, [address] [place] [address] Geronimo Thompson MD [address] [phone] GEORGINA@[email or web address] documented as of this encounter Visit Diagnoses Not on filedocumented in this encounter Additional Health Concerns Infection Onset Date Last Indicated Resolved Time CoV-Risk Comment:Per note documentation 03/28/2025 03/28/2025 9:57 AM EDT documented as of this encounter Care Teams Personal Protection Specialist Relationship Specialty Start Date End Date Carolina Madison MD [address] [place] [address] PCP - General Internal Medicine 12/10/24 Aleshia Leonard MD [address] [place] [address] MARIA VICTORIA@[facility] Thoracic Surgery 01/26/25 Bryn Dominguez MD 19 [place] [address] [email or web address] Cardiology 02/25/25 Ivonne Chicas APRN 19 [place] [address] [email or web address] Nurse Practitioner 04/06/25 documented as of this encounter Additional Source Comments The information contained in this document represents components of the legal health record. It is not the complete legal health record.[facility]
--- OUTSIDE RECORDS SUMMARY | 2025-04-21 14:45 | XMS_ITS | Encounter Summary ---
Author Organization [facility] Address [address] [place] [address] [place] [address] Phone Care Team Providers Care Manager Medical Writing Name Role Phone Carolina Madison MD Primary Care Provider [phone] Aleshia Leonard MD Unavailable [phone] Bryn Dominguez MD Unavailabl e Ivonne Chicas APRN Unavailable [phone] Encounter Details Date Type Department Care Team (Late st Contact Info) Description 01/18/2025 Procedure Pass [facility] Cath/EP Lab [address] [place] [address] Social History Tobacco Use Types [...] st Contact Info) Description 04/05/2025 Procedure Pass [facility] for Outpatient Care - [place] 32 [facility], 6th [place] [address] 04/29/2025 1:30 PM EST Office Visit [facility] Cardiology [address] [place] [address] 05/04/2025 8:15 AM EST Appointment [facility] for [facility]patient Care - [place] [address] [facility], 6th [place] [address] Aleshia Leonard MD 55 [facility] 630 [place] [address] MARIA VICTORIA@[facility] 05/04/2025 9:00 AM EST Office Visit [facility] Division of Cardiac Surgery [address] [facility], 6th Floor, [address] [place] [address] Aleshia Leonard MD 55 [facility] 630 [place] [address] MARIA VICTORIA@[facility] 06/29/2025 8:30 AM EST Office Visit [facility] Cardiovascular Medicine [address] [facility], 5th Floor, [address] [place] [address] Geronimo Thompson MD 55 [facility] [address] [place] [phone] GEORGINA@[email or web address] documented as of this encounter Visit Diagnoses Not on filedocumented in this encounter Additional Health Concerns Infection Onset Date Last Indicated Resolved Time CoV-Risk Comment:Per note documentation 03/28/2025 03/28/2025 9:57 AM EDT documented as of this encounter Care Teams Manager Medical Writing Relationship Specialty Start Date End Date Carolina Madison MD [facility] [place] [address] PCP - General Internal Medicine 6/26/25 Aleshia Leonard MD [address] [place] [address] MARIA VICTORIA@[email or web address] Thoracic Surgery 01/26/25 Bryn Dominguez MD 19 [place] [address] [email or web address] Cardiology 02/25/25 Ivonne Chicas APRN 19 [place] [address] [email or web address] Nurse Practitioner 04/06/25 documented as of this encounter Additional Source Comments The information contained in this document represents components of the legal health record. It is not the complete legal health record.[facility]
--- OUTSIDE RECORDS SUMMARY | 2025-04-21 14:45 | XMS_ITS | Encounter Summary ---
Author Organization [facility] Address [address] [facility] [address] [place] [address] Phone Care Team Providers Care Plate Take Out Worker Name Role Phone Carolina Madison MD Primary Care Provider [phone] Aleshia Leonard MD Unavailable [phone] Bryn Dominguez MD Unavailabl e Ivonne Chicas APRN Unavailable [phone] Encounter Details Date Type Department Care Team (Late st Contact Info) Description 02/09/2025 Procedure Pass [facility] Endoscopy [address] [place] [address] Social History Tobacco Use Types [...] st Contact Info) Description 04/05/2025 Procedure Pass [facility] for Outpatient Care - [place] [address] [facility], 6th [place] [address] 04/29/2025 1:30 PM EST Office Visit [facility] Cardiology [address] [place] [address] 05/04/2025 8:15 AM EST Appointment [facility] for Outpatient Care - [place] [address] [facility], 6th [place] [address] Aleshia Leonard MD [address] [address] MARIA VICTORIA@[email or web address] 05/04/2025 9:00 AM EST Office Visit [facility] Division of Cardiac Surgery [address] [facility], 6th Floor, [address] [place] [address] Aleshia Leonard MD [address] [address] MARIA VICTORIA@[email or web address] 06/29/2025 8:30 AM EST Office Visit [facility] Cardiovascular Medicine [address] [facility], 5th Floor, [address] [place] [address] Geronimo Thompson MD [address] [phone] GEORGINA@[facility] documented as of this encounter Visit Diagnoses Not on filedocumented in this encounter Additional Health Concerns Infection Onset Date Last Indicated Resolved Time CoV-Risk Comment:Per note documentation 03/28/2025 03/28/2025 9:57 AM EDT documented as of this encounter Care Teams Plate Take Out Worker Relationship Specialty Start Date End Date Carolina Madison MD [address] [place] [address] PCP - General Internal Medicine 12/10/24 Aleshia Leonard MD [address] [place] [address] MARIA VICTORIA@[facility] Thoracic Surgery 01/26/25 Bryn Dominguez MD 19 [place] [address] [email or web address] Cardiology 02/25/25 Ivonne Chicas APRN 19 [place] [address] [email or web address] Nurse Practitioner 04/06/25 documented as of this encounter Additional Source Comments The information contained in this document represents components of the legal health record. It is not the complete legal health record.[facility]
--- OUTSIDE RECORDS SUMMARY | 2025-04-21 14:45 | XMS_ITS | Encounter Summary ---
Author Organization [facility] Address [address] [facility] [address] [place] [address] Phone Care Team Providers Care Pool Table Operator Name Role Phone Carolina Madison MD Primary Care Provider [phone] Aleshia Leonard MD Unavailable [phone] Bryn Dominguez MD Unavailabl e LeaderIvonne APRN Unavailable [phone] Encounter Details Date Type Department Care Team (Late st Contact Info) Description 03/25/2025 Procedure Pass [facility] [address] [place] [phone] Social History Tobacco Use Types Packs/Day Years [...] 8:00 AM EDT Debra Barnes RN * [place] Suicide Severity Rating Scale (Screener/Recent Self-Report) Question [...] st Contact Info) Description 04/05/2025 Procedure Pass [facility] for Outpatient Care - CT [address] [place] [address], [address]th [place] [address] 04/29/2025 1:30 PM EST Office Visit P Cardiology [address] [place] [address] 05/04/2025 8:15 AM EST Appointment [facility] for [facility]patient Care - [place] [address] [facility], 6th [place] [address] Aleshia Leonard MD [address] [facility] [address] [place] [address] MARIA VICTORIA@[email or web address] 05/04/2025 9:00 AM EST Office Visit [facility] Division of Cardiac Surgery 55 [facility], 6th Floor, [address] [place] [address] Aleshia Leonard MD 55 [facility] 630 [place] [address] MARIA VICTORIA@[facility] 06/29/2025 8:30 AM EST Office Visit [facility] Cardiovascular Medicine [address] [facility], 5th Floor, [address] [place] [address] Geronimo Thompson MD 55 [facility] [address] [place] [phone] GEORGINA@[facility] documented as of this encounter Visit Diagnoses Not on filedocumented in this encounter Additional Health Concerns Infection Onset Date Last Indicated Resolved Time CoV-Risk Comment:Per note documentation 03/28/2025 03/28/2025 9:57 AM EDT documented as of this encounter Care Teams Pool Table Operator Relationship Specialty Start Date End Date Carolina Madison MD [address] [place] [address] PCP - General Internal Medicine 12/10/24 Aleshia Leonard MD [address] [address] MARIA VICTORIA@[facility] Thoracic Surgery 01/26/25 Bryn Dominguez MD 19 [place] [address] [email or web address] Cardiology 02/25/25 Ivonne Chicas APRN 19 [place] [address] Nurse Practitioner 04/06/25 documented as of this encounter Additional Source Comments The information contained in this document represents components of the legal health record. It is not the complete legal health record.[facility]
--- OUTSIDE RECORDS SUMMARY | 2025-04-21 14:45 | XMS_ITS | Encounter Summary ---
Author Organization [facility] Address [address] [facility] [address] [place] [address] Phone Care Team Providers Care Maintenance Apprentice Name Role Phone Carolina Madison MD Primary Care Provider [phone] Aleshia Leonard MD Unavailable [phone] Bryn Dominguez MD Unavailabl e LeaderIvonne APRN Unavailable [phone] Encounter Details Date Type Department Care Team (Late st Contact Info) Description 03/29/2025 Procedure Pass [facility] Cardiac US [address] [place] [address] Social History Tobacco Use Types Packs/Day Years [...] st Contact Info) Description 04/05/2025 Procedure Pass [facility] for Outpatient Care - CT [address] [facility], 6th [place] [address] 04/29/2025 1:30 PM EST Office Visit [facility] Cardiology [address] [facility] [address] 05/04/2025 8:15 AM EST Appointment [facility] for Outpatient Care - [place] [address] [facility], 6th [place] [address] Aleshia Leonard MD 55 [facility] 630 [place] [address] MARIA VICTORIA@[facility] 05/04/2025 9:00 AM EST Office Visit [facility] Division of Cardiac Surgery [address] [facility], 6th Floor, [address] [place] [address] Aleshia Leonard MD 55 [facility] 630 [place] [address] MARIA VICTORIA@[facility] 06/29/2025 8:30 AM EST Office Visit [facility] Cardiovascular Medicine 32 [facility], 5th Floor, [address] [place] [address] Geronimo Thompson MD 55 [facility] [address] [place] [phone] GEORGINA@[email or web address] documented as of this encounter Visit Diagnoses Not on filedocumented in this encounter Additional Health Concerns Infection Onset Date Last Indicated Resolved Time CoV-Risk Comment:Per note documentation 03/28/2025 03/28/2025 9:57 AM EDT documented as of this encounter Care Teams Maintenance Apprentice Relationship Specialty Start Date End Date Carolina Madison MD [address] [place] [address] PCP - General Internal Medicine 12/10/24 Aleshia Leonard MD [address] [address] MARIA VICTORIA@[facility] Thoracic Surgery 01/26/25 Bryn Dominguez MD 19 [place] [address] [email or web address] Cardiology 02/25/25 Leader, Ivonne London APRN 19 [place] [address] [email or web address] Nurse Practitioner 04/06/25 documented as of this encounter Additional Source Comments The information contained in this document represents components of the legal health record. It is not the complete legal health record.[facility]
--- OUTSIDE RECORDS SUMMARY | 2025-04-21 14:45 | XMS_ITS | Clinical Summary ---
Author Organization [facility] Address [address] [place] [address] Care Team Providers Care Retail Agent Name Role Phone Josias Rivers MD Primary [...] of Treatment Not on file Care Teams Retail Agent Relationship Specialty Start Date End Date Josias Rivers MD [address] [place] [phone] PCP - General Internal Medicine 04/26/15
--- OUTSIDE RECORDS SUMMARY | 2025-04-21 14:45 | XMS_ITS | Clinical Summary ---
Author Organization [address] [facility] Address [address] [place] [address] Phone Care Team Providers Care Couture Alterations Dressmaker Name Role Phone Wisam Taylor MD Primary Care Provider [phone] Allergies No known active allergies Medications amLODIPine-olme [...] crush or chew. 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
--- OUTSIDE RECORDS SUMMARY | 2025-04-21 14:45 | XMS_ITS | Encounter Summary ---
Author Organization [facility] Address [address] [facility] [address] [place] [address] Phone Care Team Providers Care Veterans' Counselor Name Role Phone Carolina Madison MD Primary Care Provider [phone] Aleshia Leonard MD Unavailable [phone] Bryn Dominguez MD Unavailabl e Ivonne Chicas APRN Unavailable [phone] Encounter Details Date Type Department Care Team (Late st Contact Info) Description 02/12/2025 Procedure Pass [facility] Cardiology Referral Images [address] [place] [address] Social History Tobacco Use Types Packs/Day Years [...] [facility] for Outpatient Care - [place] 32 [facility], 6th [place] [address] 04/29/2025 1:30 PM EST Office Visit [facility] Cardiology 19 [place] [address] 05/04/2025 8:15 AM EST Appointment [facility] for [facility]patient Care - [place] [address] [facility], 6th [place] [address] Aleshia Leonard MD [address] [address] MARIA VICTORIA@[facility] 05/04/2025 9:00 AM EST Office Visit [facility] Division of Cardiac Surgery [address] [facility], 6th Floor, [address] [place] [address] Aleshia Leonard MD [address] [place] [address] MARIA VICTORIA@[facility] 06/29/2025 8:30 AM EST Office Visit [facility] Cardiovascular Medicine 32 [facility], 5th Floor, [address] [place] [address] Geronimo Thompson MD [address] [phone] GEORGINA@[facility] documented as of this encounter Visit Diagnoses Not on filedocumented in this encounter Additional Health Concerns Infection Onset Date Last Indicated Resolved Time CoV-Risk Comment:Per note documentation 03/28/2025 03/28/2025 9:57 AM EDT documented as of this encounter Care Teams Veterans' Counselor Relationship Specialty Start Date End Date Carolina Madison MD [address] [place] [address] PCP - General Internal Medicine 12/10/24 Aleshia Leonard MD [address] [place] [address] MARIA VICTORIA@[facility] Thoracic Surgery 01/26/25 Bryn Dominguez MD 19 [place] [address] [email or web address] Cardiology 02/25/25 Ivonne Chicas APRN [address] [place] [address] [email or web address] Nurse Practitioner 04/06/25 documented as of this encounter Additional Source Comments The information contained in this document represents components of the legal health record. It is not the complete legal health record.[facility]
--- OUTSIDE RECORDS SUMMARY | 2025-04-21 14:45 | XMS_ITS | Clinical Summary ---
Author Organization [facility] Address [address] [place] [address] Care Team Providers Care Boiler Erector Name Role Phone Nicolette Wilson DO Primary Care Provider [phone] Allergies No known active allergies Medications Medication [...] age to complete this topic Care Teams Boiler Erector Relationship Specialty Start Date End Date Nicolette Wilson DO PCP - General Family Medicine 07/16/17
--- OUTSIDE RECORDS SUMMARY | 2025-04-21 14:45 | XMS_ITS | Encounter Summary ---
Author Organization [facility] Address [address] [facility] [address] [place] [address] Phone Care Team Providers Care Photolithographic Stripper Name Role Phone Carolina Madison MD Primary Care Provider [phone] Aleshia Leonard MD Unavailable [phone] Bryn Dominguez MD Unavailabl e Ivonne Chicas APRN Unavailable [phone] Encounter Details Date Type Department Care Team (Late st Contact Info) Description 01/19/2025 Procedure Pass [facility] Imaging - MRI, Main [facility] [address] [place] [address] Social History Tobacco Use Types [...] Center for Outpatient Care - [place] 32 [facility], 6th [place] [address] 04/29/2025 1:30 PM EST Office Visit [facility] [address] [facility] [place] [address] 05/04/2025 8:15 AM EST Appointment [facility] for Outpatient Care - [place] 32 [facility], 6th [place] [address] Aleshia Leonard MD 55 [facility] 630 [place] [address] MARIA VICTORIA@[email or web address] 05/04/2025 9:00 AM EST Office Visit [facility] Division of Cardiac Surgery 55 [facility], 6th Floor, [address] [place] [address] Aleshia Leonard MD 55 [facility] 630 [place] [address] MARIA VICTORIA@[email or web address] 06/29/2025 8:30 AM EST Office Visit [facility] Cardiovascular Medicine 32 [facility], 5th Floor, [address] [place] [address] Geronimo Thompson MD 55 [facility] [address] [place] [phone] GEORGINA@[facility] documented as of this encounter Visit Diagnoses Not on filedocumented in this encounter Additional Health Concerns Infection Onset Date Last Indicated Resolved Time CoV-Risk Comment:Per note documentation 03/28/2025 03/28/2025 9:57 AM EDT documented as of this encounter Care Teams Photolithographic Stripper Relationship Specialty Start Date End Date Carolina Madison MD [facility] [place] [address] PCP - General Internal Medicine 12/10/24 Aleshia Leonard MD [address] [address] MARIA VICTORIA@[email or web address] Thoracic Surgery 01/26/25 Bryn Dominguez MD 19 [place] [address] [email or web address] Cardiology 02/25/25 Ivonne Chicas APRN [address] [place] [address] [email or web address] Nurse Practitioner 04/06/25 documented as of this encounter Additional Source Comments The information contained in this document represents components of the legal health record. It is not the complete legal health record.[facility]
--- OUTSIDE RECORDS SUMMARY | 2025-04-21 14:45 | XMS_ITS | Encounter Summary ---
Author Organization [facility] Address [address] [facility] [address] [place] [address] Phone Care Team Providers Care Bit Sharpener Name Role Phone Carolina Madison MD Primary Care Provider [phone] Aleshia Leonard MD Unavailable [phone] Bryn Dominguez MD Unavailabl e Ivonne Chicas APRN Unavailable [phone] Reason for Visit * Reason Comments Anticoagulation Encounter Details Date Type Department Care Team (Late st Contact Info) Description 04/13/2025 Telephone [facility] Anticoagulation Clinic 19 [place] [address] Ivonne Chicas APRN 19 [facility] [place] [address] [email or web address] Anticoagulation Social History Tobacco Use Types Packs/Day [...] 04/06/25 for anticoagulation management. Patient resides in [place] and is living with her daughter Maciel in [facility] for a few months before going back to [place]. INR trending down. Take warfarin 1.5 mg Tues and 1 mg all other days. Recheck INR on Saturday04/19/25. documented in this encounter Plan of Treatment Upcoming Encounters Date Type Department Care Team (Late st Contact Info) Description 04/05/2025 Procedure Pass [facility] for Outpatient Care - [place] 32 [facility], 6th [place] [address] 04/29/2025 1:30 PM EST Office Visit [facility] Cardiology [address] [place] [address] 05/04/2025 8:15 AM EST Appointment [facility] for Outpatient Care - [place] 32 [facility], 6th [place] [address] Aleshia Leonard MD [address] [address] MARIA VICTORIA@[email or web address] 05/04/2025 9:00 AM EST Office Visit [facility] Division of Cardiac Surgery 55 [facility], 6th Floor, [address] [place] [address] Aleshia Leonard MD [address] [address] MARIA VICTORIA@[email or web address] 06/29/2025 8:30 AM EST Office Visit [facility] Cardiovascular Medicine 32 [facility], 5th Floor, [address] [place] [address] Geronimo Magdaleno MD [address] [place] [phone] [email or web address] documented as of this encounter Procedures Procedure Name Priority Date/Time Associated Diagnosis Comments PT-INR Routine 04/13/2025 documented in this encounter Results * PT-INR (04/13/2025) External Or Transcribed PT-INR 2.0 us Historical Provider LAB BLOOD BKR ORDERABLES Final Result documented in this encounter Visit Diagnoses Diagnosis Atrial fibrillation- [facility] (current) use of anticoagulants Long-term (current) use of anticoagulants documented in this encounter Care Teams Bit Sharpener Relationship Specialty Start Date End Date Carolina Madison MD [address] [place] [address] PCP - General Internal Medicine 12/10/24 Aleshia Leonard MD [address] [place] [address] MARIA VICTORIA@[email or web address] Thoracic Surgery 01/26/25 Bryn Dominguez MD 19 [place] [address] [email or web address] Cardiology 02/25/25 Ivonne Chicas APRN 19 [place] [address] [email or web address] Nurse Practitioner 04/06/25 documented as of this encounter Additional Source Comments The information contained in this document represents components of the legal health record. It is not the complete legal health record.[facility]
--- OUTSIDE RECORDS SUMMARY | 2025-04-21 14:45 | XMS_ITS | Encounter Summary ---
Author Organization [facility] Address [address] [facility] [address] [place] [address] Phone Care Team Providers Care Fishing Reel Assembler Name Role Phone Caorlina Madison MD Primary Care Provider [phone] Aleshia Leonard MD Unavailable [phone] Bryn Dominguez MD Unavailabl e LeaderIvonne APRN Unavailable [phone] Encounter Details Date Type Department Care Team (Late st Contact Info) Description 12/22/2024 Telephone [facility] Division of Cardiac Surgery 55 [facility], 6th Floor, [address] [place] [address] Aleshia Leonard MD 55 [facility] 630 [place] [address] MARIA VICTORIA@[email or web address] Social History Tobacco Use Types Packs/Day [...] Services for Outpatient Care - CT 32 [facility], 6th [place] [address] 04/29/2025 1:30 PM EST Office Visit [facility] Cardiology [address] [facility] [place] [address] 05/04/2025 8:15 AM EST Appointment [facility] Outpatient Care - CT 32 [facility], 6th [place] [address] Aleshia Leonard MD 55 [facility] 630 [place] [address] MARIA VICTORIA@[facility] 05/04/2025 9:00 AM EST Office Visit [facility] Division of Cardiac Surgery 55 [facility], 6th Floor, [address] [place] [address] Aleshia Leonard MD 55 [facility] 630 [place] [address] MARIA VICTORIA@[facility] 06/29/2025 8:30 AM EST Office Visit [facility] Cardiovascular Medicine 32 [facility], 5th Floor, [address] [place] [address] Geronimo Thompson MD 55 [facility] [address] [place] [phone] GEORGINA@[facility] documented as of this encounter Visit Diagnoses Not on filedocumented in this encounter Additional Health Concerns Infection Onset Date Last Indicated Resolved Time CoV-Risk Comment:Per note documentation 03/28/2025 03/28/2025 9:57 AM EDT documented as of this encounter Care Teams Fishing Reel Assembler Relationship Specialty Start Date End Date Carolina Madison MD [facility] [place] [address] PCP - General Internal Medicine 12/10/24 Aleshia Leonard MD [address] [place] [address] MARIA VICTORIA@[email or web address] Thoracic Surgery 01/26/25 Bryn Dominguez MD 19 [place] [address] Cardiology 02/25/25 Ivonne Chicas APRN [address] [place] [address] Nurse Practitioner 04/06/25 documented as of this encounter Additional Source Comments The information contained in this document represents components of the legal health record. It is not the complete legal health record.[facility]
--- OUTSIDE RECORDS SUMMARY | 2025-04-21 14:45 | XMS_ITS | Encounter Summary ---
Author Organization [facility] Address [address] [facility] [address] [place] [address] Phone Care Team Providers Care Educational Fundraising Director Name Role Phone Carolina Madison MD Primary Care Provider [phone] Aleshia Leonard MD Unavailable [phone] Bryn Dominguez MD Unavailabl e Ivonne Chicas APRN Unavailable [phone] Encounter Details Date Type Department Care Team (Late st Contact Info) Description 02/12/2025 Procedure Pass [facility] Cardiology Referral Images [address] [place] [address] Social History Tobacco Use Types Packs/Day Years [...] st Contact Info) Description 04/05/2025 Procedure Pass [facility] for Outpatient Care - [place] 32 [facility], 6th [place] [address] 04/29/2025 1:30 PM EST Office Visit [facility] Cardiology 19 [place] [address] 05/04/2025 8:15 AM EST Appointment [facility] for Outpatient Care - [place] 32 [facility], [address]th [place] [address] Aleshia Leonard MD [address] [address] MARIA VICTORIA@[email or web address] 05/04/2025 9:00 AM EST Office Visit [facility] Division of Cardiac Surgery 55 [facility], 6th Floor, [address] [place] [address] Aleshia Leonard MD [address] [place] [address] MARIA VICTORIA@[email or web address] 06/29/2025 8:30 AM EST Office Visit [facility] Cardiovascular Medicine 32 [facility], 5th Floor, [address] [place] [address] Geronimo Thompson MD [address] [phone] GEORGINA@[email or web address] documented as of this encounter Visit Diagnoses Not on filedocumented in this encounter Additional Health Concerns Infection Onset Date Last Indicated Resolved Time CoV-Risk Comment:Per note documentation 03/28/2025 03/28/2025 9:57 AM EDT documented as of this encounter Care Teams Educational Fundraising Director Relationship Specialty Start Date End Date Carolina Madison MD [address] [place] [address] PCP - General Internal Medicine 12/10/24 Aleshia Leonard MD [address] [place] [address] MARIA VICTORIA@[email or web address] Thoracic Surgery 01/26/25 Bryn Dominguez MD 19 [place] [address] [email or web address] Cardiology 02/25/25 Ivonne Chicas APRN 19 [place] [address] [email or web address] Nurse Practitioner 04/06/25 documented as of this encounter Additional Source Comments The information contained in this document represents components of the legal health record. It is not the complete legal health record.[facility]
--- OUTSIDE RECORDS SUMMARY | 2025-04-21 14:45 | XMS_ITS | Encounter Summary ---
Author Organization [facility] Address [address] [facility] [address] [place] [address] Phone Care Team Providers Care Clubhouse Manager Name Role Phone Carolina Madison MD Primary Care Provider [phone] Aleshia Leonard MD Unavailable [phone] Bryn Dominguez MD Unavailabl e LeaderIvonne APRN Unavailable [phone] Encounter Details Date Type Department Care Team (Late st Contact Info) Description 03/25/2025 Procedure Pass [facility]iac US [address] [place] [address] Social History Tobacco Use Types Packs/Day Years [...] 8:00 AM EDT Debra Barnes RN * [place]rell Suicide Severity Rating Scale (Screener/Recent Self-Report) Question [...] Services for Outpatient Care - [place] 32 [facility], [address]th [place] [address] 04/29/2025 1:30 PM EST Office Visit P Cardiology 19 [place] [address] 05/04/2025 8:15 AM EST Appointment [facility] Services for Outpatient Care - [place] 32 [facility], [address]th [place] [address] Aleshia Leonard MD [address] [facility] [address] [place] [address] MARIA VICTORIA@[facility] 05/04/2025 9:00 AM EST Office Visit [facility] Division of Cardiac Surgery 55 [facility], 6th Floor, [address] [place] [address] Aleshia Leonard MD 55 [facility] 630 [place] [address] MARIA VICTORIA@[email or web address] 06/29/2025 8:30 AM EST Office Visit [facility] Cardiovascular Medicine [address] [facility], 5th Floor, [address] [place] [address] Geronimo Thompson MD 55 [facility] [address] [place] [phone] GEORGINA@[facility] documented as of this encounter Visit Diagnoses Not on filedocumented in this encounter Additional Health Concerns Infection Onset Date Last Indicated Resolved Time CoV-Risk Comment:Per note documentation 03/28/2025 03/28/2025 9:57 AM EDT documented as of this encounter Care Teams Clubhouse Manager Relationship Specialty Start Date End Date Carolina Madison MD [address] [place] [address] PCP - General Internal Medicine 12/10/24 Aleshia Leonard MD [address] [address] MARIA VICTORIA@[email or web address] Thoracic Surgery 01/26/25 Bryn Dominguez MD 19 [place] [address] [email or web address] Cardiology 02/25/25 Ivonne Chicas APRN 19 [place] [address] Nurse Practitioner 04/06/25 documented as of this encounter Additional Source Comments The information contained in this document represents components of the legal health record. It is not the complete legal health record.[facility]
--- OUTSIDE RECORDS SUMMARY | 2025-04-21 14:46 | XMS_ITS | Clinical Summary ---
Author Organization [facility] Address [address] [place] [address] Phone Care Team Providers Care Parking Analyst Name Role Phone Carolina Madison MD Primary Care Provider [phone] Aleshia Leonard MD Unavailable [phone] Bryn Dominguez MD Unavailabl e Ivonne Chicas APRN Unavailable [phone] Allergies Active Allergy Reactions Criticality Noted Date Comments Spice Flavor Throat Tightness Medium 02/16/2025 [place] Shortness Of Breath High 04/06/2025 Medications amiodarone [...] mouth daily. Take daily as instructed by [facility] clinic 150 tablet Active cyanocobalamin , [...] Active Problems Problem Noted Date Diagnosed Date long-term (current) use of anticoagulants 2024 Assessment & Plan (04/06/2025 12:18 PM EDT): Continue anticoagulation for atrial fibrillation On warfarin with INR Range 2.0-3.0 for 3 months per [facility] Cardio Surgery Dr Leonard (Started warfarin 03/26/25) Anticoagulation now managed by our office, [facility] Anticoagulation Clinic [phone] Confirmed patient has 1 mg tablets at home. No warfarin refill prescription needed at this time and patient is aware to call our office when one is needed INR yesterday was therapeutic at 2.3. Take warfarin 1 mg /Sat Next INR due 04/08/25 INR standing orders entered in chart and will be faxed to the following labs: [facility] [place] [phone] FAX [phone] [facility] [phone] Confirmed phone #[phone] (dtr Maciel) to be used when calling with anticoag instructions. Added this sheet writer's name to Care Team Encounter for education [...] INR goal 2.0-3.[address] Glez [facility] Cardiology Hypertensive disorder 01/18/2025 Severe aortic regurgitation 01/18/2025 On amiodarone therapy 01/18/2025 Stage 4 chronic kidney disease 01/18/2025 Postoperative hypothyroidism 01/18/2025 Encounters Date Type Department Care Team Description 04/19/2025 Telephone [facility] Anticoagulation Clinic [address] [place] [address] Luanne Hernandez [facility] Anticoagulation 04/13/2025 Telephone [facility] [address] [place] [address] Ivonne Chicas APRN Anticoagulation 04/08/2025 Telephone [facility] Antico[facility] [address] [place] [address] Leader, Ivonne London APRN Anticoagulation 04/07/2025 Orders Only [facility] Division of Cardiac Surgery [address] [facility], 6th [address], [address] [place] [address] Aleshia Leonard MD 04/07/2025 Transcribe Orders [facility] [address] [facility], 5th [place] [address] Carolina Madison MD Dysphagia, unspecified type (Primary Dx) 04/06/2025 10:00 AM EDT Telemedicine - audio only [facility] Cardiology [place] [address] [place] [id number] 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, 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 (Primary Dx); Atrial fibrillation, unspecified type; Encounter for education 04/02/2025 Telephone [facility] Cardiology [address] [place] [address] Fallon Newberry RN 04/01/2025 8:25 AM EDT Ancillary Procedure [facility] Imaging Bedside Ultrasound VRT [address] [place] [address] Dayana Hodgson MD Kreso, Antonia, MD 03/29/2025 Procedure Pass [facility] Cardiac US [address] [place] [address] 03/28/2025 11:35 AM EDT Ancillary Procedure [facility] Imaging Bedside Ultrasound VRT [address] [place] [address] Juju Sibley CNP Kreso, Antonia, MD 03/25/2025 7:32 AM EDT Anesthesia Event [facility] PERIOPERATIVE DEPT [address] [place] [address] Say Mayo MD Jan, Daniela Nowak MD, MPH 03/25/2025 7:30 AM EDT - 03/25/2025 6:42 PM EDT Surgery [facility] PERIOPERATIVE DEPT [address] [place] [address] Aleshia Leonard MD ASCENDING AORTIC ANEURYSM GRAFT REPLACEMENT, PFO CLOSURE 03/25/2025 7:15 AM EDT Ancillary Procedure [facility] Imaging Bedside Ultrasound VRT [address] [place] [address] Say Mayo MD Kreso, Antonia, MD 03/25/2025 6:30 AM EDT Ancillary Procedure [facility] Imaging Bedside Ultrasound VRT [address] [place] [address] Say Maoy MD Kreso, Antonia, MD 03/25/2025 5:41 AM EDT - 04/05/2025 12:21 PM EDT Hospital Encounter [facility] [address] [place] [address] Aleshia Leonard MD Discharge Disposition: Home-Health Care [facility] 03/25/2025 Procedure Pass [facility] Cardiac US [address] [place] [address] 03/25/2025 Procedure Pass [facility] PERIOPERATIVE DEPT [address] [place] [phone] 03/24/2025 Documentation [facility] Division of Cardiac Surgery [address] [facility], 6[address], [address] [place] [address] Shilpa Hummel RN 03/12/2025 3:49 PM EDT - 03/12/2025 11:59 PM EDT Hospital Encounter [facility] Imaging - Emmanuel Berger [address] [place] [address], 2nd [place] [address] Olivier Tate ELEVATOR REPAIR MECHANIC Discharge Disposition: Home or Self Care 03/12/2025 3:29 PM EDT - 03/12/2025 3:48 PM EDT Hospital Encounter [facility] Phleb ACC2 [address] [facility] [place] [address] Aleshia Leonard MD Discharge Disposition: Home or Self Care 03/12/2025 2:15 PM EDT - 03/12/2025 3:28 PM EDT Hospital Encounter [facility] Pulmonary and Critical Care Unit [address] [place] [address], 2nd Floor, [address] [place] [address] Aleshia Leonard MD Discharge Disposition: Home or Self Care 03/12/2025 1:00 PM EDT Pre-Admission Testing [facility] Division of Cardiac Surgery [address] [place] [address], 6th Floor, [address] [place] [address] Aleshia Leonard MD Preop cardiovascular exam (Primary Dx); Abnormal finding of blood chemistry, unspecified 03/12/2025 Orders Only [facility] EKG LAB VIRTUAL DEPARTMENT [address] [place] [address] Tasneem Cuevas Preop cardiovascular exam 03/08/2025 Orders Only [facility] Division of Cardiac Surgery [address] [place] [address], 6th Floor, [address] [place] [address] Olivier Tate, ELEVATOR REPAIR MECHANIC SOB (shortness of breath) (Primary Dx) 02/25/2025 Documentation [facility] Division of Cardiac Surgery [address] [place] [address], 6th Floor, [address] [place] [address] Olivier Tate FNP 02/22/2025 Telephone [facility] Division of Cardiac Surgery [address] [facility], 6th [address], [address] [place] [address] Aleshia Leonard MD 02/17/2025 9:38 PM EDT - 02/17/2025 11:59 PM EDT Hospital Encounter [facility] Imaging - MRI, Main [place] [address] [place] [address] Bryn Dominguez MD Discharge Disposition: Home or Self Care 02/16/2025 1:45 PM EDT Office Visit [facility] Division of Cardiac Surgery [address] [facility], 6th Floor, [address] [place] [address] Aleshia Leonard MD Aneurysm of ascending aorta without rupture (Primary Dx) 02/12/2025 1:20 PM EDT Office Visit [facility] Cardiology Referral Images [address] [facility] [address] [place] [address] [facility] [place], Provider 02/12/2025 1:15 PM EDT Office Visit [facility] Cardiology Referral Images [address] [facility] [address] [place] [address] [facility], Provider Diagnosis unknown 02/12/2025 1:10 PM EDT Office Visit [facility] Cardiology Referral Images [address] [facility] [address] [place] [address] [facility] Ad[facility], Provider Diagnosis unknown 02/12/2025 Procedure Pass [facility] Cardiology Referral Images [address] [facility] [address] [place] [address] 02/12/2025 Procedure Pass [facility] Cardiology Referral Images [address] [facility] [address] [place] [address] 02/12/2025 Orders Only [facility] Cardiovascular Medicine [address] [facility], 5th Floor, [address] [place] [address] Unknown, Jose J, Diagnosis unknown (Primary Dx) 02/12/2025 Documentation [facility] Division of Cardiac Surgery [address] [facility], 6th [address], [address] [place] [address] Olivier Tate FNP 02/10/2025 Ancillary Orders [facility] [address] [place] [address] Aleshia Leonard MD 02/09/2025 11:55 AM EDT - 02/09/2025 12:39 PM EDT Surgery [facility] Endoscopy [address] [place] [address] Anastacio Yuen MD TRANSESOPHAGEAL ECHOCARDIOGRAM 02/09/2025 11:39 AM EDT Anesthesia Event [facility] Endoscopy [address] [place] [address] Candido Pryor MD Allen, George Kenton, MD 02/09/2025 9:35 AM EDT - 02/09/2025 11:59 PM EDT Hospital Encounter [facility] Cath/EP Lab [address] [place] [address] Bryn Dominguez MD Discharge Disposition: Home or Self Care 02/09/2025 8:00 AM EDT - 02/09/2025 9:30 AM EDT Surgery [facility] Cath/EP Lab [address] [place] [address] Bryn Dominguez MD Right and Left Heart Catheterization with possible LVGRAM 02/09/2025 7:16 AM EDT - 02/09/2025 1:55 PM EDT Hospital Encounter [facility] Endoscopy [address] [place] [address] Bryn Dominguez MD Discharge Disposition: Home or Self Care 02/09/2025 Procedure Pass [facility] Endoscopy [address] [place] [address] 02/09/2025 Procedure Pass [facility] Cath/EP Lab [address] [place] [address] 01/25/2025 Telephone [facility] Cardiology [address] [place] [address] Vanessa Galicia, CARLYN Referral 01/19/2025 Procedure Pass [facility], [facility] [address] [place] [address] 01/19/2025 Procedure Pass [facility], [facility] [address] [place] [address] 01/19/2025 Telephone [facility] Cardiology [address] [place] [address] Fallon Newberry RN CTA of Aorta 01/19/2025 Documentation [facility] Cardiology Virtual Department [address] [place] [address] Bryn Dominguez MD 01/18/2025 Procedure Pass [facility] Cath/EP Lab [address] [place] [address] from Last 3 Months Immunizations Immunization Administration [...] st Contact Info) Description 04/05/2025 Procedure Pass [facility] [place] [address] [facility], 6th [place] [address] 04/29/2025 1:30 PM EST Office Visit [facility] Cardiology [address] [place] [address] 05/04/2025 8:15 AM EST Appointment [facility] [place] [address] [facility], 6th [place] [address] Aleshia Leonard MD [address] [facility] [address] [place] [address] MARIA [email or web address] 05/04/2025 9:00 AM EST Office Visit [facility] Division of Cardiac Surgery [address] [facility], 6th Floor, [address] [place] [address] Aleshia Leonard MD [address] [facility] [address] [place] [address] MARIA [email or web address] 06/29/2025 8:30 AM EST Office Visit [facility] Cardiovascular Medicine [address] [facility], 5th Floor, [address] [place] [address] Geronimo Thompson MD [address] [facility] [address] [place] [phone] [email or web address] Health Maintenance Due Date Last Done Comments Adult Td,Tdap Booster 1945 DEPRESSION SCREENING 1957 HEPATITIS C SCREENING 09/04/1963 ZOSTER VACCINES (1 of 2) 09/04/1995 OSTEOPOROSIS SCREENING INITIAL (ONE-TIME) 2010 PNEUMOCOCCAL VACCINES (50+ years) (2 of 2 - PPSV23, PCV20, or PCV21) 11/16/2017 09/21/2017 RSV VACCINE (1 - 1-dose [...] this topic Medical Devices Implanted Type Area Information And Data Architect Analyst Device Identifier Shelf Expiration Date Model / Serial / Lot Valve Heart 21mm Perimount Magna Ease Bioprosthesis [place] Aortic Pericardial Thermafix - [id number] Implanted:Qty: 1 on 03/25/2025 by Aleshia Leonard MD at [facility] BONETISSUE N/A: Heart [employer] 11/27/2027 [id number] / [id number] / N/A Graft Vascular [id number] Vascutek Gelweave Polyester Woven Straight Aortic - [id number] Implanted:Qty: 1 on 03/25/2025 by Aleshia Leonard MD at [facility] SMDA N/A: Aorta [employer] 01/15/2028 [id number] / [id number] / [id number] Device Clip 35mmatriclip Flex V Jamee Malleable Shaft Sterile - [id number] Implanted:Qty: 1 on 03/25/2025 by Aleshia Leonard MD at [facility] N/A: Heart [employer] 11/16/2027 [id number] / / [id number] Procedures Procedure Name Priority Date/Time Associated Diagnosis Comments PT-INR Routine 04/19/2025 PT-INR Routine 04/13/2025 PT-INR Routine 04/08/2025 PREPARE RBC Routine 04/06/2025 12:37 AM EDT POCT GLUCOSE Routine 04/05/2025 8:02 AM EDT HC BLOOD TYPING SEROLOGIC ABO Routine 5:36 AM EDT CBC Routine 04/05/2025 5:36 AM EDT BASIC METABOLIC PANEL (BMP) Routine 03/18 5:36 AM EDT PT-INR Routine 04/05/2025 5:36 AM EDT MAGNESIUM Routine 04/05/2025 5:36 AM EDT ECG 12-LEAD Routine 04/05/2025 5:32 AM EDT POCT GLUCOSE Routine 04/04/2025 8:05 [...] 04/04/2025 6:18 AM EDT BASIC METABOLIC PANEL (BMP) Routine 03/17 6:18 AM EDT PT-INR Routine 04/04/2025 6:18 [...] 04/03/2025 5:03 AM EDT BASIC METABOLIC PANEL (BMP) Routine 03/17 5:03 AM EDT PT-INR Routine 04/03/2025 5:03 AM EDT MAGNESIUM Routine 04/03/2025 5:03 AM EDT POCT GLUCOSE Routine 04/02/2025 8:59 PM EDT POCT GLUCOSE Routine 04/02/2025 5:39 PM EDT POCT GLUCOSE Routine 04/02/2025 11:34 AM EDT POCT GLUCOSE Routine 04/02/2025 8:28 AM EDT CREAT. COMMENT Routine 04/02/2025 4:33 AM EDT BASIC METABOLIC PANEL (BMP) Routine 03/17 4:33 AM EDT CREAT. COMMENT Routine 04/02/2025 12:34 AM EDT PTT Routine 04/02/2025 12:34 AM EDT PT-INR Routine 04/02/2025 12:34 AM EDT CBC Routine 04/02/2025 12:34 AM EDT BASIC METABOLIC PANEL (BMP) Routine 03/17 12:34 AM EDT MAGNESIUM Routine 04/02/2025 12:34 [...] 04/01/2025 4:55 PM EDT BASIC METABOLIC PANEL (BMP) Routine 03/17 4:55 PM EDT POTASSIUM (BLOOD GAS) STAT [...] 04/01/2025 9:00 AM EDT BASIC METABOLIC PANEL (BMP) Routine 03/17 9:00 AM EDT CYSTATIN C WITH ESTIMATED GLOMERULAR FILTRATION RATE (EGFR) Routine 04/01/2025 9:00 AM EDT US BEDSIDE [...] 03/17 3:35 AM EDT BASIC METABOLIC PANEL (BMP) Routine 03/17 3:35 AM EDT POCT GLUCOSE Routine 04/01/2025 2:47 AM EDT LACTATE (BLOOD GAS) Routine 04/01/2025 2:42 AM EDT GLUCOSE (BLOOD GAS) STAT 04/01/2025 2:42 AM EDT POCT GLUCOSE Routine 04/01/2025 1:31 AM EDT CREAT. COMMENT Routine 04/01/2025 12:58 AM EDT PHOSPHORUS Routine 04/01/2025 12:58 AM EDT MAGNESIUM Routine 04/01/2025 12:58 AM EDT BASIC METABOLIC PANEL (BMP) Routine 03/17 12:58 AM EDT HC BLOOD TYPING SEROLOGIC ABO Routine 12:35 AM EDT CREAT. COMMENT Routine 04/01/2025 12:22 AM EDT CBC Routine 04/01/2025 12:22 AM EDT PT-INR Routine 04/01/2025 12:22 AM EDT PTT Routine 04/01/2025 12:22 AM EDT BASIC METABOLIC PANEL (BMP) Routine 03/17 12:22 AM EDT MAGNESIUM Routine 04/01/2025 12:22 [...] 03/31/2025 11:56 PM EDT BASIC METABOLIC PANEL (BMP) Routine 03/17 11:56 PM EDT POTASSIUM (BLOOD GAS) STAT 03/31/2025 11:56 PM EDT IONIZED CALCIUM STAT 03/31/2025 11:56 PM EDT GLUCOSE (BLOOD GAS) STAT 03/31/2025 11:56 PM EDT POCT GLUCOSE Routine 03/31/2025 10:39 PM EDT CREAT. COMMENT Routine 03/31/2025 9:32 PM EDT BASIC METABOLIC PANEL (BMP) Routine 03/17 9:32 PM EDT POCT GLUCOSE Routine 03/31/2025 9:30 PM EDT POCT GLUCOSE Routine 03/31/2025 8:31 PM EDT CREAT. COMMENT Routine 03/31/2025 8:25 PM EDT PHOSPHORUS Routine 03/31/2025 8:25 PM EDT MAGNESIUM Routine 03/31/2025 8:25 PM EDT BASIC METABOLIC PANEL (BMP) Routine 03/17 8:25 PM EDT CREAT. COMMENT Routine 03/31/2025 3:50 PM EDT PHOSPHORUS Routine 03/31/2025 3:50 PM EDT MAGNESIUM Routine 03/31/2025 3:50 PM EDT BASIC METABOLIC PANEL (BMP) Routine 03/17 3:50 PM EDT VENOUS BLOOD GAS PLUS [...] 03/31/2025 12:10 AM EDT BASIC METABOLIC PANEL (BMP) Routine 03/17 12:10 AM EDT CBC Routine 03/31/2025 12:10 [...] 03/30/2025 3:07 PM EDT BASIC METABOLIC PANEL (BMP) Routine 03/17 3:07 PM EDT TTE COMPREHENSIVE W/ AGITATE [...] 03/30/2025 8:48 AM EDT BASIC METABOLIC PANEL (BMP) Routine 03/17 8:48 AM EDT CBC Routine 03/30/2025 8:48 [...] 03/29/2025 11:43 PM EDT BASIC METABOLIC PANEL (BMP) Routine 03/17 11:43 PM EDT CBC Routine 03/29/2025 11:43 [...] 03/29/2025 3:59 PM EDT BASIC METABOLIC PANEL (BMP) Routine 03/17 3:59 PM EDT CBC Routine 03/29/2025 3:59 [...] 03/29/2025 2:40 AM EDT BASIC METABOLIC PANEL (BMP) Routine 03/17 2:40 AM EDT PTT Routine 03/29/2025 2:40 [...] (PRO) Routine 03/28/2025 3:35 PM EDT INFLUENZA A/B, RSV, PCR Routine 03/28/20 3:35 PM EDT INSERT ARTERIAL LINE Routine 03/28/2025 3:10 PM EDT Acute hypoxic respiratory failure CREAT. COMMENT Routine 03/28/2025 2:50 PM EDT ARTERIAL BLOOD GAS PLUS Routine 03/28/20 2:50 PM EDT MAGNESIUM Routine 03/28/2025 2:50 PM EDT BASIC METABOLIC PANEL (BMP) Routine 03/17 2:50 PM EDT US BEDSIDE Routine 03/28/2025 11:31 AM EDT CREAT. COMMENT Routine 03/28/2025 7:59 AM EDT MAGNESIUM Routine 03/28/2025 7:59 AM EDT BASIC METABOLIC PANEL (BMP) Routine 03/17 7:59 AM EDT ECG 12-LEAD Routine 03/28/2025 [...] URINE Routine 03/28/2025 7:41 AM EDT URINALYSIS WITH REFLEX TO URINE CULTURE Routine 03/28/2025 7:41 AM EDT CREAT. COMMENT Routine 03/28/2025 2:02 AM EDT LFTS (HEPATIC PANEL) Routine 03/28/2025 2:02 AM EDT PHOSPHORUS Routine 03/28/2025 2:02 AM EDT MAGNESIUM Routine 03/28/2025 2:02 AM EDT BASIC METABOLIC PANEL (BMP) Routine 03/17 2:02 AM EDT PTT Routine 03/28/2025 2:02 AM EDT PT-INR Routine 03/28/2025 2:02 AM EDT CBC Routine 03/28/2025 2:02 AM EDT HC BLOOD TYPING SEROLOGIC ABO Routine 2:02 AM EDT XR CHEST PORTABLE Timed [...] 03/27/2025 2:10 AM EDT BASIC METABOLIC PANEL (BMP) Routine 03/17 2:10 AM EDT CBC Routine 03/27/2025 2:10 [...] 03/26/2025 3:35 PM EDT BASIC METABOLIC PANEL (BMP) Routine 03/17 3:35 PM EDT CBC Routine 03/26/2025 3:35 PM EDT POCT GLUCOSE Routine 03/26/2025 1:11 PM EDT POCT GLUCOSE Routine 03/26/2025 12:18 PM EDT PHOSPHORUS Routine 03/26/2025 10:23 AM EDT MAGNESIUM Routine 03/26/2025 10:23 AM EDT BASIC METABOLIC PANEL (BMP) Routine 03/17 10:23 AM EDT LACTATE (BLOOD GAS) Routine [...] 03/26/2025 3:10 AM EDT BASIC METABOLIC PANEL (BMP) Routine 03/17 3:10 AM EDT PTT Routine 03/26/2025 3:10 [...] 03/25/2025 1:45 PM EDT BASIC METABOLIC PANEL (BMP) Routine 02/2025 1:45 PM EDT PTT Routine 03/25/2025 1:45 [...] A LINE Routine 03/25/2025 8:36 AM EDT OR INSERT/PLACE FLOW DIRECT CATH PERF Routine 03/25/2025 8:36 AM EDT OR ECHO HEART TRANSESOPH PRO BE PLACEMT PERF Routine 03/25/2025 8:36 AM EDT OR INSERT CATH ART PERCUT SHORTTERM PERF Routine 03/25/2025 8:35 AM EDT POCT HEPARIN DOSE RESPONSE Routine 03/25 7:55 AM EDT AIRWAY PLACEMENT Routine 03/25/2025 7:46 AM EDT POCT HEPARIN DOSE RESPONSE Routine 03/25 7:45 AM EDT BASIC METABOLIC PANEL (BMP) STAT 02/2025 7:42 AM EDT LACTATE (BLOOD GAS) STAT 03/25/2025 7:42 AM EDT ARTERIAL BLOOD GAS PLUS STAT 03/25/20 7:42 AM EDT OR VALVULOPLASTY AORTIC VALV E OPEN CARD BYP SIMPLE 03/25/2025 7:32 AM EDT Aortic valve insufficiency, etiology of cardiac valve disease unspecified Ascending aortic aneurysm, unspecified whether ruptured Atrial fibrillation, unspecified type Special Needs CPT Code(s):AscAoAneurysm Graft Replacement-- [id number]-- [id number] (Tissue)-- [id number] OR EXCLUSION JAMEE OPEN TM STRNT/THRCM ANY METHOD 03/25/2025 7:32 AM EDT Aortic valve insufficiency, etiology of cardiac valve disease unspecified Ascending aortic aneurysm, unspecified whether ruptured Atrial fibrillation, unspecified type Special Needs CPT Code(s):AscAoAneurysm Graft Replacement-- [id number]-- [id number] (Tissue)-- 23087 OR -AORT GRF W/CARD BYP F/AORTIC DS OTH/THN DSJ 03/25/2025 7:32 AM EDT Aortic valve insufficiency, etiology of cardiac valve disease unspecified Ascending aortic aneurysm, unspecified whether ruptured Atrial fibrillation, unspecified type Special Needs CPT Code(s):AscAoAneurysm Graft Replacement-- [id number]-- [id number] (Tissue)-- 95592 ANESTHESIA POINT OF CARE GAMALIEL GE CAPTURE Routine 03/25/2025 7:13 AM EDT ANESTHESIA POINT OF CARE GAMALIEL GE CAPTURE Routine 03/25/2025 6:28 AM EDT ECG 12-LEAD Routine 03/12/2025 4:03 PM EDT Preop cardiovascular exam XR CHEST PA AND LATERAL 2 VIEWS Routine 03/12/2025 3:56 PM EDT Preop cardiovascular exam ABO AND RH Routine 03/12/2025 3:46 PM EDT CBC AND DIFFERENTIAL Routine 03/12/2025 3:46 PM EDT Preop cardiovascular exam COMPREHENSIVE METABOLIC PANE L (CMP) Routine 03/12/2025 3:46 PM EDT Preop cardiovascular exam MAGNESIUM Routine 03/12/2025 3:46 PM EDT Preop cardiovascular exam HEMOGLOBIN A1C Routine 03/12/2025 3:46 PM EDT Preop cardiovascular exam Abnormal finding of blood chemistry, unspecified PT-INR Routine 03/12/2025 3:46 PM EDT Preop cardiovascular exam PTT Routine 03/12/2025 3:46 PM EDT Preop cardiovascular exam HC BLOOD TYPING SEROLOGIC ABO Routine 3:46 PM EDT Preop cardiovascular exam MRSA/MSSA [...] 02/09/2025 11:11 AM EDT Dysphagia, unspecified type OR ESOPHAGOGASTRODUODENOSCOP Y TRANSORAL DIAGNOSTIC 02/09/2025 11:11 AM [...] 02/09/2025 7:30 AM EDT BASIC METABOLIC PANEL (BMP) STAT 01/16 7:30 AM EDT LIPID PROFILE WITH DIRECT LDL Routine 1:43 PM EDT Aneurysm of ascending aorta without rupture Preoperative cardiovascular examination TSH WITH REFLEX Routine 01/18/2025 1:43 PM EDT Hypothyroidism, unspecified type Preoperative cardiovascular examination from Last 3 Months or Most Recently Relevant to Health Maintenance Results * PT-INR (04/19/2025) Only the most recent of18 resultswithin the time period is included. External Or Transcribed PT-INR 2.4 Blood (Blood) us Historical Provider MD LAB BLOOD BKR ORDERABLES Final Result * Prepare RBC, 1 Units (04/06/2025 12:37 AM EDT) Only the most recent of2 resultswithin the time period is included. Product Code [id number] 04/06/2025 12:37 AM EDT [facility] Unit Number [id number] 04/06/20 25 12:37 AM EDT [facility] Crossmatch Interpretation Compatible 04/04/2025 10:05 AM EDT [facility] Product Status Issued, Final 025 12:37 AM EDT [facility] ABO/Rh of Unit APOS 04/06/2025 12:37 AM EDT [facility] Expiration Date/Time [id number] 04/06/2025 12:37 AM EDT [facility] Unit Barcode [id number] 04/06/2025 12:37 AM EDT [facility] 03/12/2025 5:1 6 PM EDT Khari Walker PA-C BLOOD BANK PRODUCT ORDE ESSENCE Final Result [facility] [address] [place] [address] * POCT Glucose (04/05/2025 8:02 AM EDT) Only the most recent of41 resultswithin the time period is included. Glucose, POCT 104 70 - 110 mg/dL [facility] 04/05/2025 8:02 AM EDT 04/05/2025 8:04 AM EDT Aleshia Leonard MD POINT OF CARE TEST ORDERABLES F inal Result Performing Organization Address [facility] Co de Phone Number [address] [address] * (ABNORMAL) CBC (04/05/2025 5:36 AM EDT) Only the most recent of18 resultswithin the time period is included. WBC 10.87 4.00 - 11.00 K/uL [facility] RBC 2.77(L) 4.00 - 5.20 M/uL [facility] HGB 8.7(L) 12.0 - 16.0 g/dL [facility] HCT 26.7(L) 36.0 - 46.0 % [facility] PLT 384 150 - 450 K/uL [facility] MCV 96.4 80.0 - 100.0 fL [facility] MCH 31.4(H) 27.0 - 31.0 pg [facility] MCHC 32.6 32.0 - 36.0 g/dL [facility] RDW 15.9(H) 11.5 - 14.5 % [facility] MPV 9.9 8.4 - 12.0 fL [facility] NRBC 0.00 0.00 /100 WBCs [facility] ABSOLUTE NRBC 0.00 0.00 K/uL [facility] Blood 04/05/2025 5:36 AM EDT 04/05/2025 6:07 AM EDT Shanelle Mcmullen ELEVATOR REPAIR MECHANIC LAB BLOOD BKR ORDERABLES Final Result Performing Organization Address City/[facility]/ZIP Co de Phone Number [address] [address] * Type and Screen (ABO,Rh,Antibody Screen) (04/05/2025 5:36 AM EDT) Only the most recent of4 resultswithin the time period is included. Expiration Date of Sample 04/08/2025 11:59 PM [facility] Antibody Screen Negative 04/05/2025 6:52 AM EDT [facility] Resulting Agency [facility] ABO A 04/05/2025 6:42 AM EDT [facility] Rh Positive 04/05/2025 6:42 AM EDT [facility] Blood 04/05/2025 5:36 AM EDT 04/05/2025 5:49 AM EDT us Khari Walker PA-C LAB BLOOD BANK TEST ORD ERABLES Final Result Performing Organization Address City/[facility]/ZIP Co de Phone Number [address] [address] * Magnesium (04/05/2025 5:36 AM EDT) Only the most recent of29 resultswithin the time period is included. MAGNESIUM 2.4 1.7 - 2.4 mg/dL [facility] Blood 04/05/2025 5:36 AM EDT 04/05/2025 6:07 AM EDT Shanelle Mcmullen ELEVATOR REPAIR MECHANIC LAB BLOOD BKR ORDERABLES Final Result Performing Organization Address City/[facility] Co de Phone Number [address] [address] * (ABNORMAL) Basic metabolic panel (04/05/2025 5:36 AM EDT) Only the most recent of29 resultswithin the time period is included. SODIUM 140 135 - 145 mmol/L [facility] POTASSIUM 3.6 3.4 - 5.0 mmol/L [facility] CHLORIDE 97(L) 98 - 108 mmol/L [facility] CO2 28 23 - 32 mmol/L [facility] BUN 44(H) 8 - 25 mg/dL [facility] CREATININE 2.21(H) 0.50 - 1.00 mg/dL [facility] GLUCOSE 93 70 - 110 mg/dL [facility] CALCIUM 8.9 8.5 - 10.5 mg/dL [facility] EGFR 22(L) >59 mL/min/1. 73m2 [facility] Comment:Estimated glomerular filtration rate calculated using the CKD-EPI refit equation. ANION GAP 15 3 - 17 mmol/L [facility] Blood 04/05/2025 5:36 AM EDT 04/05/2025 6:07 AM EDT Shanelle Mcmullen ELEVATOR REPAIR MECHANIC LAB BLOOD BKR ORDERABLES Final Result Performing Organization Address City/[facility] Co de Phone Number [facility] [address] [place] [address] * ECG 12-LEAD (04/05/2025 5:32 AM EDT) Only the most recent of9 resultswithin the time period is included. Systolic Blood Pressure 127 mmHg [facility] Diastolic Blood Pressure 58 mmHg [facility] Ventricular Rate EKG/MIN 63 BPM [facility] Atrial Rate 63 BPM [facility] OR Interval 174 ms [facility] QRS Duration 88 ms [facility] QT Interval 370 ms [facility] QTC Interval 378 ms [facility] P [place] 57 degrees [facility] R Wave [place] 4 degrees [facility] T Wave [place] 69 degrees [facility] 04/05/2025 5:32 AM EDT 04/20/2025 5:17 PM EST Narrative [facility] - 04/20/2025 5:18 PM EST LOC: EL8 DX: ARRHYTHMIA REF: NICOLETTE PIKE BASELINE ARTIFACT SINUS RHYTHM POOR R WAVE PROGRESSION TENDENCY TO LOW VOLTAGE NONSPECIFIC ST SEGMENT AND T WAVE ABNORMALITIES WHEN COMPARED WITH ECG OF 04-Apr-2025 06:36, LIMB LEAD VOLTAGE IS DECREASED Electronically Signed in [facility] system. Confirmed by Fabien AMARO, JOSE Whitman ([id number]) on 04/20/2025 5:17:57 PM Nicolette Pike DIRECTOR OF HOME ECONOMICS, DNP ECG ORDERABLES F inal Result Performing Organization Address City/[facility]/ZIP Co de Phone Number [facility] * Sodium, random urine (04/04/2025 6:29 PM EDT) URINE SODIUM 20 mmol/L [facility] Comment:Results must be inte rpreted based on patient context and with other clinical and laboratory data. Urine (Urine) 04/04/2025 6:2 9 PM EDT 04/04/2025 9:32 PM EDT Khari TORIBIO-C LAB URINE ORDERABLES Fi nal Result Performing Organization Address [facility] Co de Phone Number [address] [address] * Osmolality, Random Urine (04/04/2025 6:29 PM EDT) URINE OSMOLALITY 326 150 - 1,150 mOsm/kg water [facility] Urine (Urine) 04/04/2025 6:2 9 PM EDT 04/04/2025 9:32 PM EDT Khari Walker PA-C LAB URINE ORDERABLES Fi nal Result Performing Organization Address [facility] Co de Phone Number [address] [address] * Transfuse RBC (04/04/2025 4:29 PM EDT) Khari TORIBIO-C NURSING TREATMENT ORDER TRENT - BLOOD ADMIN Final Result Performing Organization Address [facility] de Phone Number [facility] * XR CHEST PA AND LATERAL [...] provided indication for this examination in Epic: S/P Cardiac Surgery COMPARISON: April 01, 2025 [...] clinician's provided indication for this examination in Epic:S/P Cardiac Surgery COMPARISON: April 01, 2025 and [...] RECOMMENDATION: Follow-up is recommended to ensure clearing. us Felton Quiroga PA-C IMG XR CHEST Final R esult * Creat. Comment (04/02/2025 4:33 AM EDT) Only the most recent of16 resultswithin the time period is included. Creat Comment Increasing Creatinine Value on your Patient: The calculated GFR may thus overestimate the true GFR and should not be used to guide medication dosing. Negative [facility] 04/02/2025 4:33 AM EDT 04/02/2025 4:53 AM EDT Nicolette Pike CNP, DNP LAB BLOOD ORDERAB LES Final Result Performing Organization Address [facility] Co de Phone Number [address] [address] * (ABNORMAL) LFTs (hepatic panel) (04/02/2025 12:34 AM EDT) Only the most recent of10 resultswithin the time period is included. ALBUMIN 3.2(L) 3.3 - 5.0 g/dL [facility] TOTAL BILIRUBIN 0.5 0.0 - 1.0 mg/dL [facility] DIRECT BILIRUBIN 0.2 0.0 - 0.3 mg/dL [facility] ALKALINE PHOSPHATASE 69 30 - 100 U/L [facility] AST 25 9 - 32 U/L [facility] ALT 13 7 - 33 U/L [facility] TOTAL PROTEIN 6.2 6.0 - 8.3 g/dL [facility] GLOBULIN 3.0 1.9 - 4.1 g/dL [facility] Blood 04/02/2025 12:3 4 AM EDT 04/02/2025 12:55 AM EDT Nicolette Pike CNP, DNP LAB BLOOD BKR ORD ERABLES Final Result Performing Organization Address City/[facility] Co de Phone Number [address] [address] * PTT (04/02/2025 12:34 AM EDT) Only the most recent of12 resultswithin the time period is included. APTT 27.8 24.0 - 37.5 sec [facility] Comment:Check MAR for the ta rget range that is ordered for your patient. Blood 04/02/2025 12:3 4 AM EDT 04/02/2025 12:55 AM EDT us Nicolette Pike CNP, KUSUM LAB BLOOD BKR ORD ERABLES Final Result Performing Organization Address City/[facility] Co de Phone Number [address] [address] * Phosphorus (04/02/2025 12:34 AM EDT) Only the most recent of19 resultswithin the time period is included. PHOSPHORUS 3.6 2.6 - 4.5 mg/dL [facility] Blood 04/02/2025 12:3 4 AM EDT 04/02/2025 12:55 AM EDT us Nicolette Pike CNP, KUSUM LAB BLOOD BKR ORD ERABLES Final Result Performing Organization Address City/[facility] Co de Phone Number [address] [address] * Lactate (04/02/2025 12:34 AM EDT) Only the most recent of3 resultswithin the time period is included. LACTIC ACID (MMOL/L) 0.9 0.5 - 2.0 mmol/L [facility] Blood 04/02/2025 12:3 4 AM EDT 04/02/2025 12:54 AM EDT us Nicolette Pike CNP, KUSUM LAB BLOOD BKR ORD ERABLES Final Result Performing Organization Address City/[facility] Co de Phone Number [address] [address] * XR Chest Portable (04/01/2025 10:13 PM [...] clinician's provided indication for this examination in [facility]: S/P Cardiac Surgery COMPARISON: XR CHEST PORTABLE [...] clinician's provided indication for this examination in [facility]:S/P Cardiac Surgery COMPARISON: XR CHEST PORTABLE 03:24:09.000 [...] at bothbases. l il ral pleural effusions. [facility] ELEVATOR REPAIR MECHANIC IMG XR CHEST Final Result * GLUCOSE (BLOOD GAS) (04/01/2025 12:48 PM EDT) Only the most recent of4 resultswithin the time period is included. Glucose, whole bld 106 70 - 110 mg/dL [facility] Blood 04/01/2025 12:4 8 PM EDT 04/01/2025 1:03 PM EDT Nicolette Pike CNP, DNP LAB BLOOD BKR ORD ERABLES Final Result [address] [address] * (ABNORMAL) POTASSIUM (BLOOD GAS) (04/01/2025 12:48 PM EDT) Only the most recent of4 resultswithin the time period is included. POTASSIUM 3.2(L) 3.5 - 5.0 mmol/L [facility] Blood 04/01/2025 12:4 8 PM EDT 04/01/2025 1:03 PM EDT Nicolette Pike CNP, KUSUM LAB BLOOD BKR ORD ERABLES Final Result [address] [address] * Respiratory Pathogen PCR Panel (04/01/2025 11:43 AM EDT) Specimen Type NASOPHARYNGEAL SWAB [facility] Adenovirus Not Detected Not Detected [facility] Coronavirus, not SARS-CoV-2 Not Detected Not Detected [facility] Comment:This component of th e panel targets Coronavirus 229E, HKU1, NL63, and OC43 only. Human Metapneumovirus Not Detected Not Detected [facility] Influenza A Not Detected Not Detected [facility] Comment:This component of th e panel detects Influenza A and can differentiate among certain Influenza A subtypes including H1, H1-2009, H3, and a non-specified subtype. Influenza B Not Detected Not Detected [facility] Parainfluenza 1-4 Not Detected Not Detected [facility] Respiratory Syncytial Virus Not Detected Not Detected [facility] Human Rhinovirus/Entero virus Not Detected Not Detected [facility] Bordetella Parapertussis Not Detected Not Detected [facility] Bordetella Pertussis Presumptive: Not Detected Presumptiv e: Not Detected [facility] Chlamydia Pneumoniae Presumptive: Not Detected Presumptiv e: Not Detected [facility] Mycoplasma Pneumoniae Presumptive: Not Detected Presumptiv e: Not Detected [facility] Comment: Performance of this assay has not been established for specimens collected from individuals without signs or symptoms of respiratory infections. This test has [place] authorization from the FDA for use by authorized laboratories. 04/01/2025 11:4 3 AM EDT 04/01/2025 11:43 AM EDT Aleshia Leonard MD LAB GENERAL ORDERABLES Final Re sult Performing Organization Address [facility] Co de Phone Number [address] [address] * Serology comment (04/01/2025 11:43 AM EDT) SEROLOGY COMMENT Test Added by MD/Care Unit on: [facility] Comment:04/01/25 BY KENTRELL MONTERROSO 04/01/2025 11:4 3 AM EDT 04/01/2025 11:43 AM EDT Result [facility] Aleshia Leonard MD LAB BLOOD ORDERABLES Final Resu lt Performing Organization Address [facility] Co de Phone Number [address] [address] * Microbiology Add On (04/01/2025 10:52 AM EDT) Only the most recent of2 resultswithin the time period is included. CONTACT INFORMATION [id number] [facility] TEST REQUESTED RESPIRATORY EXPANDED VIRAL PANEL [facility] Comments (Chemistry) ADD ON COMPLETE. [facility] Specimen Type RESPIRATORY NASOPHARYNGEAL SWAB [facility] Specimen Date/Time 515 [facility] 04/01/2025 10:5 2 AM EDT 04/01/2025 11:45 AM EDT Shanelle PFEIFFER LAB GENERAL ORDERABLES Final R esult Performing Organization Address [facility] Co de Phone Number [address] [address] * (ABNORMAL) Cystatin C (04/01/2025 9:00 AM EDT) Cystatin C 2.58(H) 0.61 - 0.95 mg/L [facility] eGFR (Cystatin C) 19(L) >59 mL/min/1. 73m2 [facility] Comment: Cystatin C-based eGFR may differ substantially from creatinine-based eGFR in patients with abnormal muscle mass or acutely changing renal function. Please interpret together with relevant clinical features. Blood 04/01/2025 9:00 AM EDT 04/01/2025 9:22 AM EDT us Shanelle Mcmullen ELEVATOR REPAIR MECHANIC LAB BLOOD BKR ORDERABLES Final Result [facility] [address] [place] [address] * Bedside Ultrasound (04/01/2025 8:20 AM EDT) [...] provided indication for this examination in Epic: Post-Op COMPARISON: XR CHEST PORTABLE FINDINGS: Devices/Tubes/Lines: [...] clinician's provided indication for this examination in Epic:Post-Op COMPARISON: XR CHEST PORTABLE FINDINGS: Devices/Tubes/Lines: Status [...] edited the report originallycreated by Mega Macias. Salome Farmer PA-C IMG XR CHEST Final Resul t * Urea nitrogen, random urine (04/01/2025 3:35 AM EDT) URINE UREA NITROGEN 123 mg/dL [facility] Urine (Urine) 04/01/2025 3:3 5 AM EDT 04/01/2025 3:54 AM EDT us Aleshia Leonard MD LAB URINE ORDERABLES Final Resu lt [facility] [address] [place] [address] * Creatinine, random urine (04/01/2025 3:35 AM EDT) URINE CREATININE 14 mg/dL [facility] Urine (Urine) 04/01/2025 3:3 5 AM EDT 04/01/2025 3:54 AM EDT Aleshia Leonard MD LAB URINE ORDERABLES Final Resu lt [address] [address] * Lactate (blood gas) (04/01/2025 2:42 AM EDT) Only the most recent of35 resultswithin the time period is included. Lactate, blood 1.1 0.5 - 2.0 mmol/L [facility] Blood 04/01/2025 2:42 AM EDT 04/01/2025 2:58 AM EDT Nicolette Pike DIRECTOR OF HOME ECONOMICS, DNP LAB BLOOD BKR ORD ERABLES Final Result Performing Organization Address [facility] Co de Phone Number [address] [address] * (ABNORMAL) VENOUS BLOOD GAS PLUS (03/31/2025 11:56 PM EDT) Only the most recent of9 resultswithin the time period is included. FIO2 0.40/30LP M FIO2/L min [facility] PH 7.46(H) 7.30 - 7.40 [facility] PCO2 53(H) 38 - 50 mm[Hg] [facility] PO2 37 35 - 50 mm[Hg] [facility] Base Excess, unspecified 11.1(H) 0.0 - 3.0 mmol/L [facility] HCO3, unspecified 36(H) 24 - 30 mmol/L [facility] SODIUM 131(L) 135 - 145 mmol/L [facility] POTASSIUM 3.2(L) 3.5 - 5.0 mmol/L [facility] IONIZED CALCIUM 1.17 1.14 - 1.30 mmol/L [facility] Glucose, whole bld 245(H) 70 - 110 mg/dL [facility] HGB (BG) 8.2(L) 12.0 - 16.0 g/dl [facility] SO2-VENOUS (SO2, venous) 63.1 60.0 - 85.0 % [facility] Blood 03/31/2025 11:5 6 PM EDT 04/01/2025 12:02 AM EDT Aleshia Leonard MD LAB BLOOD ORDERABLES Final Resu lt Performing Organization Address [facility] Co de Phone Number [address] [address] * (ABNORMAL) Ionized calcium (03/31/2025 11:56 PM EDT) IONIZED CALCIUM 1.12(L) 1.14 - 1.30 mmol/L [facility] Blood 03/31/2025 11:5 6 PM EDT 04/01/2025 12:02 AM EDT Nicolette Pike CNP, DNP LAB BLOOD BKR ORD ERABLES Final Result Performing Organization Address [facility] Co de Phone Number [address] [address] * (ABNORMAL) Oxygen saturation, mixed venous (03/31/2025 9:24 AM EDT) Only the most recent of8 resultswithin the time period is included. SO2-MIXED (SO2, mixed bld) 59.9(L) 65.0 - 75.0 % [facility] Blood 03/31/2025 9:24 AM EDT 03/31/2025 9:50 AM EDT Nicolette Pike CNP, KUSUM LAB BLOOD BKR ORD ERABLES Final Result Performing Organization Address [facility] Co de Phone Number [address] [address] * XR Chest Portable (03/30/2025 9:00 PM [...] Epic: Respiratory failure COMPARISON: XR CHEST PORTABLE 2024- FINDINGS: [...] clinician's provided indication for this examination in [facility]:Respiratory failure COMPARISON: XR CHEST PORTABLE FINDINGS: Devices/Tubes/Lines: [...] consistent with an element of interventricular interdependence. Aleshia Leonard MD CV ECHO ORDERABLES Final Result * [...] left upper extremities. 3. Portable exam. ATTESTATION: IDr. Lauren as teaching [...] or leftupper extremities. 3. Portable exam. ATTESTATION: IDr. Lauren as teaching physician, havereviewed the images for [...] left lower extremities. 2. Portable exam. ATTESTATION: Dr. Lauren Leon [...] by TAYLOR WILLINGHAM. us Juju Sibley CNP US VASCULAR Final Result * (ABNORMAL) Arterial blood gas PLUS (03/30/2025 2:45 AM EDT) Only the most recent of32 resultswithin the time period is included. FIO2 0.65 FIO2/L min [facility] Comment:HFNC 50L PH 7.51(H) 7.35 - 7.45 [facility] PCO2 53(H) 35 - 42 mm[Hg] [facility] PO2 68(L) 80 - 100 mm[Hg] [facility] Base Excess, unspecified 16.4(H) 0.0 - 3.0 mmol/L [facility] HCO3, unspecified 41(H) 24 - 30 mmol/L [facility] SODIUM 139 135 - 145 mmol/L [facility] POTASSIUM 3.6 3.5 - 5.0 mmol/L [facility] IONIZED CALCIUM 1.00(L) 1.14 - 1.30 mmol/L [facility] Glucose, whole bld 121(H) 70 - 110 mg/dL [facility] HGB (BG) 8.3(L) 12.0 - 16.0 g/dl [facility] O2 Sat (SO2, arterial) 94.9 94.0 - 99.0 % [facility] Blood 03/30/2025 2:45 AM EDT 03/30/2025 2:50 AM EDT us Aleshia Leonard MD LAB BLOOD ORDERABLES Final Resu lt [facility] [address] [place] [address] * XR Chest Portable (03/29/2025 9:10 PM [...] silhouette,and bilateral pleural effusions. us Joelle Hoang DIRECTOR OF HOME ECONOMICS IMG XR CHEST Final R esult * COVID Pandemic Respiratory Viral Order (PRO) (03/29/2025 5:16 AM EDT) Only the most recent of2 resultswithin the time period is included. Test Ordered Rapid COVID has been ordered [facility] SPECIMEN SOURCE/DESCRIPTIO N NASOPHARYNGEAL SWAB [facility] SARS-CoV 2 (COVID-19) PCR Negative Negative [facility] Comment: Negative results do not preclude [...] 5:16 AM EDT 03/29/2025 8:54 AM EDT Minal Jarad [facility] LAB GENERAL ORDERABLES Final Res ult [address] [address] * XR Chest Portable (03/29/2025 4:27 AM [...] clinician's provided indication for this examination in [facility]:Dyspnea on exertion COMPARISON: XR CHEST PORTABLE FINDINGS: [...] can not be ruled out. Minal Abraham [facility] IMG XR CHEST Final Result * XR [...] clinician's provided indication for this examination in [facility]: Pulmonary Edema COMPARISON: XR CHEST PORTABLE FINDINGS: [...] 3:35 PM EDT) Specimen Type NASOPHARYNGEAL SWAB [facility] Influenza A PCR NEGATIVE for INFLUENZA A NEGATIVE for INFLUENZA A [facility] Influenza B PCR NEGATIVE for INFLUENZA B NEGATIVE for INFLUENZA B [facility] RSV PCR NEGATIVE for RSV NEGATIVE for RSV [facility] Comment: This test has been authorized by the FDA under an Emergency Use Authorization (EUA) for use by authorized laboratories. 03/28/2025 3:35 PM EDT 03/28/2025 5:42 PM EDT Juju Sibley CNP LAB GENERAL ORDERABLES Final Result [facility] [address] [place] [address] * INSERT ARTERIAL LINE (03/28/2025 3:10 PM EDT) Narrative Juju Sibley CNP - 03/28/2025 3:10 PM EDT Juju Sibley CNP 03/28/2025 3:14 PM Arterial Line Date/Time: 03/28/2025 3:10 PM Performed by: Juju Sibley CNP Authorized by: Juju Sibley CNP [place] Protocol: Consent obtained: Yes Time out: Immediately [...] * Bedside Ultrasound (03/28/2025 11:31 AM EDT) Juju Sibley CNP IMG POINT OF CARE EXAMS Final Result * Urine Sediment (03/28/2025 7:41 AM EDT) RBC 0-2 0 - 2 /hpf [facility] WBC <10 <10 /hpf [facility] Comment:0 to 2 WBC's per hpf 03/28/2025 7:41 AM EDT 03/28/2025 9:05 AM EDT Juju Sibley CNP URINE ORDERABLES Final Result [address] [address] * (ABNORMAL) Urinalysis w/reflex Urine Culture (03/28/2025 7:41 AM EDT) COLOR COLORLESS(A ) Yellow [facility] CLARITY Clear Clear [facility] GLUCOSE Negative Negative [facility] BILI Negative Negative [facility] KETONES Negative Negative [facility] SPECIFIC GRAVITY 1.008 1.001 - 1.035 [facility] BLOOD 1+(A) Negative [facility] PH 5.0 5.0 - 9.0 [facility] Protein-UA Negative Negative [facility] UROBILINOGEN Negative Negative [facility] NITR[facility] Negative Negative [facility] Leukocyte esterase, ur Negative Negative [facility] Urine (Urine) 03/28/2025 7:4 1 AM EDT 03/28/2025 9:05 AM EDT Juju Sibley CNP LAB URINE ORDERABLES Final Re sult Performing Organization Address [facility]/ZIP Co de Phone Number [address] [address] * MICROALBUMIN/CREATININE, RANDOM URINE (03/28/2025 7:41 AM EDT) Pathologist [facility] MICROALB/CRE RATIO TOO LOW TO CALCULATE <30.0 mg/g Cre [facility] 03/28/2025 7:41 AM EDT 03/28/2025 9:05 AM EDT Juju Sibley [facility] URINE ORDERABLES Final Result Performing Organization Address [facility] Co de Phone Number [address] [address] * TOTAL PROTEIN CREATININE RATIO, RANDOM URINE (03/28/2025 7:41 AM EDT) URINE TOTAL PROTEIN <4.0 0.0 - 13.5 mg/dL [facility] URINE CREATININE 25 mg/dL [facility] URINE TP CRE RATIO TOO LOW TO CALCULATE <0.15 [facility] Urine (Urine) 03/28/2025 7:4 1 AM EDT 03/28/2025 9:05 AM EDT Juju Sibley CNP LAB URINE ORDERABLES Final Re sult Performing Organization Address [facility] Co de Phone Number [facility] [address] [place] [address] * Heparin PF4 antibody (HIT) (03/28/2025 7:41 AM EDT) HIT IGG ANTIBODY Negative Negative [facility] Comment: This result indicates no [...] 4T's score). Heparin PF4 Antibody 0.00 U/mL [facility] Comment:Nighat ACOSTA, Jericho FAM, Marcia WATERS, Nikhil EDWARDS, Olivia I. High sensitivity and specificity of an automated IgG specific chemiluminescence immunoassay for diagnosis of HIT. Blood. 2017Mar 06 132(12):1345 to 1349. doi: 10.1182/blood 2018 [id number]. Epub 2017Jan 14. PMID: [id number] PMCID: [id number]. Blood 03/28/2025 7:41 AM EDT 03/28/2025 8:16 AM EDT Juju Sibley [facility] LAB BLOOD BKR ORDERABLES Jessica l Result Performing Organization Address [facility] Co de Phone Number [facility] [address] [place] [address] * Microalbumin, Urine (03/28/2025 7:41 AM EDT) URINE MICROALBUMIN <0.2 0.0 - 2.0 mg/dL [facility] 03/28/2025 7:41 AM EDT 03/28/2025 9:05 AM EDT Juju Sibley [facility] LAB URINE ORDERABLES Final Re sult Performing Organization Address [facility]/ZIP Co de Phone Number [address] [address] * (ABNORMAL) SPEP PANEL (03/28/2025 7:41 AM EDT) Total Protein 4.8(L) 6.0 - 8.3 g/dL [facility] IMMUNOGLOBULIN G 669 614 - 1,295 mg/dL [facility] IgA 154 69 - 309 mg/dL [facility] IMMUNOGLOBULIN M 43(L) 53 - 334 mg/dL [facility] SPEP Normal pattern [facility] Comment: Normal SPEP: Normal pattern Performing Pathologist, Stan Ambriz M.D., Ph.D. [phone] Serum protein electrophoresis results should be evaluated in the context of separately reported serum free light chain levels and ratio when these additional results are available. Blood 03/28/2025 7:41 AM EDT 03/28/2025 8:06 AM EDT Juju Sibley CNP LAB BLOOD BKR ORDERABLES Jessica l Result Performing Organization Address [facility] Co de Phone Number [address] [address] * (ABNORMAL) Free light chains, serum (03/28/2025 7:41 AM EDT) FREE KAPPA LT CHAIN 39.0(H) 3.3 - 19.4 mg/L [facility] FREE LAMBDA LT CHAIN 33.7(H) 5.7 - 26.3 mg/L [facility] FREE KAPPA LAMBDA RAT 1.16 0.30 - 1.70 [facility] Blood 03/28/2025 7:41 AM EDT 03/28/2025 8:06 AM EDT Juju Sibley DIRECTOR OF HOME ECONOMICS LAB BLOOD BKR ORDERABLES Jessica l Result Performing Organization Address [facility] Co de Phone Number [address] [address] * XR Chest Portable (03/27/2025 10:44 PM [...] clinician's provided indication for this examination in [facility]: Pulmonary Edema COMPARISON: XR CHEST PORTABLE FINDINGS: Devices/Tubes/Lines: PA catheter tip terminates in [...] clinician's provided indication for this examination in [facility]:Pulmonary Edema COMPARISON: XR CHEST PORTABLE FINDINGS: Devices/Tubes/Lines: PA catheter tip terminates in [...] detailed in the report. Juju Sibley CNP IMG XR CHEST Final Result * (ABNORMAL) Oxygen saturation, arterial (03/26/2025 9:32 PM EDT) O2 Sat (SO2, arterial) 92.9(L) 94.0 - 99.0 % [facility] Blood 03/26/2025 9:32 PM EDT 03/26/2025 9:35 PM EDT us Nicolette Pike DIRECTOR OF HOME ECONOMICS, DNP LAB BLOOD BKR ORD ERABLES Final Result [address] [address] * XR Chest Portable (03/26/2025 8:48 PM [...] clinician's provided indication for this examination in [facility]: Pulmonary Edema COMPARISON: XR CHEST PORTABLE 02:47:41.000 [...] clinician's provided indication for this examination in [facility]:Pulmonary Edema COMPARISON: XR CHEST PORTABLE 02:47:41.000 FINDINGS: [...] included. FIBRINOGEN 286 200 - 400 mg/dL [facility] Blood 03/26/2025 3:10 AM EDT 03/26/2025 3:37 AM EDT Nicolette Pike DIRECTOR OF HOME ECONOMICS, DNP LAB BLOOD BKR ORD ERABLES Final Result [address] [address] * XR Chest Portable (03/26/2025 2:49 AM [...] provided indication for this examination in Epic: Post-Op; cardiac surgery COMPARISON: XR CHEST PORTABLE [...] clinician's provided indication for this examination in [facility]:Post-Op; cardiac surgery COMPARISON: XR CHEST PORTABLE FINDINGS: [...] Ana Flores as teaching physician, have reviewed theimages for this case and if necessary edited the report originally createdby Danica Junior. Nicolette Pike DIRECTOR OF HOME ECONOMICS, DNP IMG XR CHEST F inal Result [...] Dr. Prasanth Hayward as teaching physician, have reviewed the images for this case and if necessary edited the report originally created by Jacquelyn Mcleod. Narrative 03/25/2025 3:19 PM EDT XR CHEST PORTABLE Referring clinician's provided indication for this examination in [facility]: Post-Op; cardiac surgery COMPARISON: XR CHEST PA [...] report originallycreated by Jacquelyn Mcleod. Nicolette Pike CNP, DNP IMG XR CHEST F inal Result * MRSA Nasal Screen (03/25/2025 1:45 PM EDT) Special Requests No Special Requests 03/25/2025 1:45 PM EDT [facility] MRSA Nasal Culture NEGATIVE FOR MRSA 03/26/2025 2:03 PM EDT [facility] Other (Nasal) 03/25/2025 1:4 5 PM EDT 03/25/2025 5:18 PM EDT Nicolette Pike CNP, DNP LAB MICROBIOLOGY CULTURE ORDERABLES Final Result Performing Organization Address [facility] Co de Phone Number [address] [address] * Vancomycin Resistant Enterococci (VRE), Rectal Screen (03/25/2025 1:45 PM EDT) Pathologist [facility] Special Requests No Special Requests 03/25/2025 1:45 PM EDT [facility] VRE Rectal Culture NEGATIVE FOR VRE 03/26/2025 2:16 PM EDT [facility] Stool (Stool swab) 03/25/2025 1:45 PM EDT 03/25/2025 5:20 PM EDT Nicolette Pike CNP, DNP LAB MICROBIOLOGY CULTURE ORDERABLES Final Result Performing Organization Address [facility] Co de Phone Number [address] [address] * CB COMP PROBE PLACED BY ANES W/ COLOR FLOW AND COMP DOPPLER (03/25/2025 1:23 PM EDT) Pathologist [facility] Body Surface Area 1.79 m2 Anatomical Region [...] a patent foramen ovale (PFO) by Doppler. us Daniela Motley MD, MPH CV ECHO ORDERABLES Final Result * POCT ACT from cardiac OR (03/25/2025 12:39 PM EDT) Only the most recent of9 resultswithin the time period is included. ACT FROM CARDIAC OR 103 90 - 130 sec [facility] 03/25/2025 12:3 9 PM EDT 03/25/2025 12:37 PM EDT us Aleshia Leonard MD LAB POCT ENTER/EDIT ORDERABLES Final Result [address] [address] * POCT Heparin Protamine Titration (03/25/2025 12:39 PM EDT) Only the most recent of8 resultswithin the time period is included. Heparin Protamine Titration 0.0 u/ml [facility] Misc Test Ref Range 0.0-1.2 u/ml [facility] Comment (Coag) Red [facility] 03/25/2025 12:3 9 PM EDT 03/25/2025 12:37 PM EDT us Aleshia Leonard MD POINT OF CARE TEST ORDERABLES F inal Result Performing Organization Address [facility] Co de Phone Number [address] [address] * (ABNORMAL) PUMP BLOOD GAS PLUS (03/25/2025 11:44 AM EDT) Only the most recent of6 resultswithin the time period is included. Pathologist [facility] FIO2/FLOW CPB FIO2/L min [facility] TEMP. 37.0 deg C [facility] PH(UNCORRECTED) 7.43 [facility] PH 7.43 7.32 - 7.45 [facility] PCO2(UNCORRECTE D) 38 mm[Hg] [facility] PCO2 38 35 - 50 mm[Hg] [facility] PO2(UNCORRECTED ) 250 mm[Hg] [facility] PO2 250(H) 40 - 90 mm[Hg] [facility] Base Excess, unspecified 0.3 0.0 - 3.0 mmol/L [facility] HCO3, unspecified 25 24 - 30 mmol/L [facility] SODIUM 137 135 - 145 mmol/L [facility] POTASSIUM 5.1(H) 3.5 - 5.0 mmol/L [facility] HGB (BG) 7.6(L) 12.0 - 16.0 g/dl [facility] IONIZED CALCIUM 0.89(L) 1.14 - 1.30 mmol/L [facility] Glucose, whole bld 126(H) 70 - 110 mg/dL [facility] SO2, unspecified 99.6 94.0 - 99.9 % [facility] Comment: SO2 Reference Range: Arterial: 94.0-99.9 Venous: 60.0-85.0 Blood 03/25/2025 11:4 4 AM EDT 03/25/2025 11:49 AM EDT us Say Mayo MD LAB BLOOD [place] [address] * Anatomic Pathology (Non-MGB) (03/25/2025 10:37 AM EDT) Report [address] [address] Surgical Pathology Report Patient Name: ROSSY MITCHELL : 1945 (Age: 79) Sex: F [facility]: [facility] B08 Institution: [facility] Date of Operation: 03/25/2025 Date of Reported: [...] Sectioning reveals a white, smooth cut surface. Rubber Heel And Sole Press Tender sections are submitted in A1-A2. Additional sales representative public utilities sections are submitted in A3-A10 on 04/02/2025. [...] cm aggregate of white-bautista rubbery tissue fragments. Rubber Heel And Sole Press Tender sections of each cusp to include the possible fused commissure are submitted in B1. Grossed by: Mimi Campos Immunohistochemical and in-situ hybridization tests performed at [facility] have been developed and their performance characteristics determined by the Immunohistochemistry Laboratories in the Department of Pathology at [facility]. They have not been cleared or approved by the U.S.Food and Drug Administration (FDA); the FDA has determined that such clearance or approval is not necessary. [facility] Clinical History Aortic regurgitation and ascending aortic aneurysm; atrial fibrillation [facility] Final Diagnosis A. AORTA EXCISION: AORTITIS [...] Pastrana. B. AORTIC VALVE EXCISION: Myxomatous degeneration. [facility] Gross Description Received fresh in 2 parts, each labeled Rossy Mitchell and . A. Labeled aorta is a 6.5 x 6.0 x 1.4 cm aggregate of large caliber vessel fragments. The tunica externa is bautista-pink with minimal hemorrhage, and the tunica intima is white-bautista and smooth with minimal yellow plaque. Sectioning reveals a white, smooth cut surface. Rubber Heel And Sole Press Tender sections are submitted in A1-A2. Additional sales representative public utilities sections are submitted in A3-A10 on 04/02/2025. [...] cm aggregate of white-bautista rubbery tissue fragments. Rubber Heel And Sole Press Tender sections of each cusp to include the possible fused commissure are submitted in B1. [facility] Conversion Type (Aorta) 03/25/2025 10:37 AM EDT 03/25/2025 1:40 PM EDT Conversion Type (Heart Valve, Three Affiliated Aortic) 03/25/2025 10:37 AM EDT 03/25/2025 1:40 PM EDT Aleshia Leonard MD LAB PATHOLOGY ORDERABLES Edited Result - Final [address] [address] * OR INSERT/PLACE FLOW DIRECT CATH PERF, ANES DOUBLE LUMEN SHEATH - PA LINE, ANES VIP PLUS CATH - CENTRAL PA LINE (03/25/2025 8:36 AM EDT) Narrative Say Mayo MD - 03/25/2025 8:36 AM EDT Say Mayo MD 03/25/2025 8:36 AM Pulmonary Artery Line Placement Procedure Note: Start time: 03/25/2025 8:18 AM Anesthesiologist: Say Mayo MD Fellow/Resident/PHOTOGRAPHIC SPOTTER: Daniela Motley MD, MPH Performed: fellow/resident/PHOTOGRAPHIC SPOTTER [place] Protocol performed: consent obtained, patient identified with [...] 30 seconds? yes personal protection worn? yes support assistant followed standard precautions? yes sterile technique [...] flow Complications?: No us Say Mayo MD OR ANESTHESIA Final Resul t * OR ECHO HEART TRANSESOPH PROBE PLACEMT PERF (03/25/2025 8:36 AM EDT) Narrative Say Mayo MD - 03/25/2025 8:36 AM EDT Say Mayo MD 03/25/2025 8:36 AM Transesophageal Echocardiogram Procedure Note: Performed by: anesthesiologist Anesthesiologist: Say Mayo MD [place] Protocol performed: consent obtained, patient identified with 2 identifiers, correct procedure verified, correct site and laterality confirmed, verified equipment, coagulation status reviewed and implant history reviewed. Placement notes: probe advanced in esophagus atraumatic Say Mayo MD OR ANESTHESIA Final Resul t * OR INSERT CATH ART PERCUT SHORTTERM PERF (03/25/2025 8:35 AM EDT) Say Macdonald MD - 03/25/2025 8:35 AM EDT Say Mayo MD 03/25/2025 9:20 AM Arterial Line Placement Procedure Note: Start Time 03/25/2025 7:22 AM: Location: pre-op Procedure performed by: fellow/resident/PHOTOGRAPHIC SPOTTER Anesthesiologist: Say Mayo MD Fellow/Resident/PHOTOGRAPHIC SPOTTER: Daniela Motley MD, MPH Indication(s): hemodynamic monitoring, arterial blood gas and frequent labs [place] Protocol performed: consent obtained, patient identified with [...] with no immediate complications Transducer type: regular Say Mayo MD OR ANESTHESIA Edited Resu lt - Final * POCT heparin dose response (03/25/2025 7:55 AM EDT) Only the most recent of2 resultswithin the time period is included. ACT FROM CARDIAC OR 126 90 - 130 sec [facility] Projected heparin concentration 4.6 u/ml [facility] Heparin dose response 71 50 - 120 sec [facility] 03/25/2025 7:55 AM EDT 03/25/2025 8:00 AM EDT us Aleshia Leonard MD POINT OF CARE TEST ORDERABLES F inal Result [address] [address] * ANES ETT DOUBLE LUMEN - AIRWAY LDA (03/25/2025 7:46 AM EDT) Narrative Say Mayo MD - 03/25/2025 7:46 AM EDT Say Mayo MD 03/25/2025 8:36 AM Airway Placement Procedure Note: Patient was not difficult to intubate. Procedure performed by: fellow/resident/PHOTOGRAPHIC SPOTTER Anesthesiologist: Say Mayo MD Fellow/Resident/PHOTOGRAPHIC SPOTTER: Daniela Motley MD, MPH Airway procedure initiated [...] block in place, tongue in neutral position. us Say Mayo MD OR ANESTHESIA Final Resul t * ANESTHESIA POINT OF CARE IMAGE CAPTURE (03/25/2025 7:13 AM EDT) Anatomical Region Laterality Modality Ultrasound Narrative 03/25/2025 7:13 AM EDT Daniela Motley MD, MPH 03/25/2025 7:13 AM Anesthesia Point of Care Image Capture Performed by: Say Mayo MD Authorized by: Say Mayo MD Accession Number: [id number] us Say Mayo MD IMG POINT OF CARE EXAMS Fin al Result * ANESTHESIA POINT OF CARE IMAGE CAPTURE (03/25/2025 6:28 AM EDT) Anatomical Region Laterality Modality Ultrasound Narrative 03/25/2025 6:28 AM EDT Daniela Motley MD, MPH 03/25/2025 6:28 AM Anesthesia Point of Care Image Capture Performed by: Daniela Motley MD, MPH Authorized by: Say Mayo MD Accession Number: [id number] us Say Mayo MD IMG POINT OF CARE [...] clinician's provided indication for this examination in [facility]: Pre-Op COMPARISON: None available. FINDINGS: [...] clinician's provided indication for this examination in [facility]:Pre-Op COMPARISON: None available. FINDINGS: Devices/Tubes/Lines: [...] edited the report originallycreated by Mayank Figueroa. Result [facility] Olivier Stilesanda [facility] IMG XR CHEST Final Result * MRSA/MSSA PRE-OP PCR (03/12/2025 3:46 PM EDT) MRSA PCR SCREEN NEGATIVE FOR MRSA (Methicillin Resistant S.aureus) NEGATIVE FOR MRSA (Methicillin Resistant S.aureus) [facility] MSSA PCR SCREEN NEGATIVE FOR MSSA (Methicillin Susceptible S.aureus) NEGATIVE FOR MSSA (Methicillin Susceptible S.aureus) [facility] Comment:This test was conduc rafael as part of Pre-Operative Screening for Staphylococcus aureus. Please direct any questions regarding this result to the Ordering Provider. Nasal (Nasal) 03/12/2025 3:4 6 PM EDT 03/12/2025 5:47 PM EDT Olivier Tate [facility] LAB GENERAL ORDERABLES Final Result Performing Organization Address City/[facility]/ZIP Co de Phone Number [address] [address] * (ABNORMAL) Comprehensive metabolic panel (03/12/2025 3:46 PM EDT) SODIUM 142 135 - 145 mmol/L [facility] POTASSIUM 4.6 3.4 - 5.0 mmol/L [facility] CHLORIDE 105 98 - 108 mmol/L [facility] CO2 25 23 - 32 mmol/L [facility] BUN 30(H) 8 - 25 mg/dL [facility] CREATININE 2.01(H) 0.50 - 1.00 mg/dL [facility] GLUCOSE 86 70 - 110 mg/dL [facility] ALBUMIN 4.0 3.3 - 5.0 g/dL [facility] TOTAL PROTEIN 6.8 6.0 - 8.3 g/dL [facility] CALCIUM 9.4 8.5 - 10.5 mg/dL [facility] ALKALINE PHOSPHATASE 46 30 - 100 U/L [facility] TOTAL BILIRUBIN 0.4 0.0 - 1.0 mg/dL [facility] AST 16 9 - 32 U/L [facility] ALT 13 7 - 33 U/L [facility] GLOBULIN 2.8 1.9 - 4.1 g/dL [facility] EGFR 25(L) >59 mL/min/1. 73m2 [facility] Comment:Estimated glomerular filtration rate calculated using the CKD-EPI refit equation. ANION GAP 12 3 - 17 mmol/L [facility] 03/12/2025 3:46 PM EDT 03/12/2025 5:50 PM EDT Olivier VALLEJOP LAB BLOOD BKR ORDERABLES Jessica l Result [address] [address] * ABO and Rh (03/12/2025 3:46 PM EDT) Expiration Date of Sample 04/07/2025 11:59 PM [facility] ABO A 04/06/2025 8:35 AM EDT [facility] Rh Positive 04/06/2025 8:35 AM EDT [facility] Comment:Patient Transfused, specimen exp. date updated Resulting Agency [facility] 03/12/2025 3:46 PM EDT 03/12/2025 5:16 PM EDT us Blood Bank LAB BLOOD BANK TEST ORDERABLES F inal Result [address] [address] * (ABNORMAL) CBC and differential (03/12/2025 3:46 PM EDT) Only the most recent of2 resultswithin the time period is included. WBC 5.43 4.00 - 11.00 K/uL [facility] RBC 3.77(L) 4.00 - 5.20 M/uL [facility] HGB 11.9(L) 12.0 - 16.0 g/dL [facility] HCT 37.6 36.0 - 46.0 % [facility] PLT 255 150 - 450 K/uL [facility] MCV 99.7 80.0 - 100.0 fL [facility] MCH 31.6(H) 27.0 - 31.0 pg [facility] MCHC 31.6(L) 32.0 - 36.0 g/dL [facility] RDW 13.5 11.5 - 14.5 % [facility] MPV 10.3 8.4 - 12.0 fL [facility] NRBC 0.00 0.00 /100 WBCs [facility] ABSOLUTE NRBC 0.00 0.00 K/uL [facility] DIFF METHOD Auto [facility] NEUTS 65.7 48.0 - 76.0 % [facility] LYMPHS 20.6 18.0 - 41.0 % [facility] MONOS 10.7 4.0 - 11.0 % [facility] EOS 1.3 0.0 - 5.0 % [facility] BASOS 1.5 0.0 - 1.5 % [facility] % IMMATURE GRANS 0.2 0.0 - 0.9 % [facility] ABSOLUTE NEUTS 3.57 1.92 - 7.60 K/uL [facility] ABSOLUTE LYMPHS 1.12 0.72 - 4.10 K/uL [facility] ABSOLUTE MONOS 0.58 0.16 - 1.10 K/uL [facility] ABSOLUTE EOS 0.07 0.00 - 0.50 K/uL [facility] ABSOLUTE BASOS 0.08 0.00 - 0.15 K/uL [facility] ABS IMMATURE GRANS 0.01 0.00 - 0.09 K/uL [facility] Blood 03/12/2025 3:46 PM EDT 03/12/2025 5:48 PM EDT Olivier Lea [facility] LAB BLOOD BKR ORDERABLES Jessica l Result Performing Organization Address [facility] Co de Phone Number [address] [address] * (ABNORMAL) Hemoglobin A1c (03/12/2025 3:46 PM EDT) HEMOGLOBIN A1C 5.8(H) 4.3 - 5.6 % [facility] Comment:HbA1c levels 5.7-6.4 % represent pre-diabetes, indicating impaired glucose control and an increased risk of developing diabetes compared with lower HbA1c levels. The diagnostic HbA1c level for diabetes is 6.5% or greater. CALC MEAN BLD GLUC 120 mg/dL [facility] Comment:There is no establis hed normal range for the Calculated Mean Blood Glucose (CMBG), however a HbA1c of 5.6% (upper limit of normal) represents a CMBG of 114 mg/dL. The diagnostic hemoglobin A1c level for diabetes is greater than or equal to 6.5% which represents a CMBG greater than or equal to 140 mg/dL. 03/12/2025 3:46 PM EDT 03/12/2025 5:49 PM EDT Olivier Tate ELEVATOR REPAIR MECHANIC LAB BLOOD BKR ORDERABLES Jessica l Result Performing Organization Address [facility] Co de Phone Number [address] [address] * Pulmonary Function Test Reason for Exam: Dyspnea/Shortness of Breath; Type of PFT Test: Spirometry with bronchodilator, DLCO, Lung Volumes; Performing Location: [facility] [place]; Request Procedure Labelle: PFT; Type: PFT - Complete; [facility] PFT Lab will ... (03/12/2025 2:29 PM [...] Outside Images for comparison purposes only. Result [facility] Admitting CV CARDIAC CATH ORDERABLE S Final Result * Outside Echo Report Only (02/12/2025 1:08 PM EDT) Other Narrative SYSTEMGENERATED, DOCUMENTATION - 02/12/2025 1:08 PM EDT Outside Images for comparison purposes only. Result [facility] Admitting CV ECHO ORDERABLES Final Result * Outside Echo Report Only (02/12/2025 1:08 PM EDT) Other Narrative SYSTEMGENERATED, DOCUMENTATION - 02/12/2025 1:08 PM EDT Outside Images for comparison purposes only. Result [facility] Admitting CV ECHO ORDERABLES Final Result [...] obtained by: Consent obtained with help of Cambodian supervisor lens generating as well as family members. Frannie Alves APRN.. Probe-placing MD: Monster Driscoll MD, PAPO. Image acquisition MD: Monster Driscoll MD, PAPO. The predominant rhythm during the study was [...] Yuen MD - 02/09/2025 11:04 AM EDT [facility] Patient Name: Rossy Mitchell Procedure Date: 02/09/2025 11:04 AM Date of : 1945 Age: 79 Gender: Female Attending MD: Anastacio Yuen MD, Instrument Name: [id number] Diagnostic EGD Procedure: Upper GI endoscopy Indications: Esophageal dysphagia, EGD evaluation prior to CB Providers: Anastacio Yuen MD, Trini Hassan RN, Raymond Green,ALEXEY Medicines: Monitored Anesthesia Care Referring [...] infection, need for surgery, blood transfusions (unless Religion),heart and respiratory complications amongst others. The endoscope [...] specimens collected. Recommendation: - Refer to a lumber stacker as previously scheduled.The CB will be scheduled and endoscopy forcontinuation of her sedation for patient's convenience Anastacio Yuen MD 02/09/2025 11:53:27 AM This report has been signed electronically. Number of Addenda: 0 Estimated Blood Loss: Estimated blood loss: none. [address] [place] [id number] us Unknown Unknown MD GI PROCEDURE ORDERABLES Final Result * RIGHT [...] micropuncture kit. Sheath upsized to 7F sheath. Tifton-Srikanth catheter advanced and balloon inflated. Catheter passed [...] achieved with manual pressure and TR Band. Bryn Leon MD, was personally present for the length [...] evaluation. Plan Plan/Additional Recommendations: -Routine post-procedure care. Bryn Curran MD CV CARDIAC CATH ORDERABLES Final Result * (ABNORMAL) Lipid profile with direct LDL (01/18/2025 1:43 PM EDT) [facility] CHOLESTEROL 210(H) 0 - 200 mg/dL [facility] TRIGLYCERIDES 118 0 - 150 mg/dL [facility] HDL 66 40 - 80 mg/dL [facility] LDL Chol (Direct) 134(H) 0 - 130 mg/dL [facility] CARDIAC RISK RATIO 3.[address] [facility] Blood 01/18/2025 1:43 PM EDT 01/18/2025 1:46 PM EDT Bryn Curran MD LAB BLOOD B KR ORDERABLES Final Result [address] [phone] * TSH with reflex (01/18/2025 1:43 PM EDT) [facility] SCREENING PANEL: TSH 2.77 0.34 - 5.9 uIU/mL [facility] Blood 01/18/2025 1:43 PM EDT 01/18/2025 1:46 PM EDT Bryn Curran MD LAB BLOOD B KR ORDERABLES Final Result [address] [phone] from Last 3 Months or Most Recently Relevant to Health Maintenance Insurance MEDICARE PART A & B MEDICARE PART A & B MEDICARE PART A & B MEDICARE PART A & B MEDICARE PART A & B MEDICARE PART A & B Advance Directives For more information, please contact: [phone] (9AM - 5PM [facility], Saturday-Saturday) Documents on File Type Date Recorded Patient Rubber Heel And Sole Press Tender Expl anation Healthcare Proxy 03/12/2025 1:59 PM Advance Directive - Non Epic LMR 10/10/2009 12:00 AM * Full Code (Latest Code Status on File) Date Activated Date Inactivated Comments 03/25/2025 1:44 PM Question Answer Comments Code Status Confirmed With: Other (specify below ) Code Discussion Comments: OR Care Teams Parking Analyst Relationship Specialty Start Date End Date Carolina Madison MD [address] [place] [address] PCP - General Internal Medicine 12/10/24 Aleshia Leonard MD [address] [place] [id number] [email or web address] Thoracic Surgery 01/26/25 Bryn Dominguez MD [address] [place] [id number] [email or web address] Cardiology 02/25/25 Ivonne Chicas APRN [address] [place] [phone] [email or web address] Nurse Practitioner 04/06/25 Additional Source Comments The information contained in this document represents components of the legal health record. It is not the complete legal health record.[facility]
== END 2025-04-21 12:44 | disposition home or self-care (01) ==
LOC: HO.HMCC 12:03
PROVIDERS: PCP Internal Medicine; Visit Provider Internal Medicine
DX: Z95.3 Presence of xenogenic heart valve (principal); I48.91 Unspecified atrial fibrillation; N18.4 Chronic kidney disease, stage 4 (severe)

== ENCOUNTER → 2025-04-21 12:02 | Outpatient (BNVA) | payer MEDICARE, SELFPAY | PROVIDERS: PCP Internal Medicine; Visit Provider Internal Medicine | DX: N18.4 Chronic kidney disease, stage 4 (severe) (principal); I48.91 Unspecified atrial fibrillation; Z95.3 Presence of xenogenic heart valve | CPT/HCPCS: 99212 ==

== ENCOUNTER 2025-04-22 13:16 | Outpatient (REF) | payer MEDICARE, SELFPAY ==
[2025-04-22 14:20] LABS: Hematocrit 32.0 % (37.0-47.0); Hemoglobin 10.0 g/dl (12.0-16.0); Mean Corpuscular HGB Conc 31.3 g/dl (31.0-35.0); Mean Corpuscular Hemoglobin 30.5 pg (27.0-33.0); Mean Corpuscular Volume 97.6 fL (80.0-98.0); NRBC Abs Auto 0.000 X10*3/uL (0.0-0.012); NRBC Pct Auto 0.0 /100WBC (0.0-0.2); Platelet Count 372 X10*3/uL (160-400); Red Blood Count 3.28 X10*6/uL (4.20-5.50); White Blood Count 5.2 X10*3/uL (4.8-10.8)
[2025-04-22 14:55] LABS: Anion Gap 10 (12-20); Blood Urea Nitrogen 26 mg/dL (9-16); Calcium 9.6 mg/dL (8.4-10.2); Carbon Dioxide 30 mmol/L (22-29); Chloride 107 mmol/L (96-108); Estimated Glomerular Filt Rate 24; Iron 44 mcg/dL (30-160); Percent Iron Saturation 22 % (15-50); Potassium 3.7 mmol/L (3.3-5.1); Sodium 143 mmol/L (135-145); Total Iron Binding Capacity 199 mcg/dL (228-428); Unsaturated Iron Binding 155 ug/dL
[2025-04-22 15:11] LABS: Ferritin 199 ng/mL (10-250)
--- OUTSIDE RECORDS SUMMARY | 2025-04-22 16:10 | XMS_ITS | Encounter Summary ---
Author Organization [facility] Address 399 [facility] [address] [place] [address] Phone Care Team Providers Care Bar Steward Name Role Phone Carolina Madison MD Primary Care Provider [phone] Aleshia Leonard MD Unavailable [phone] Bryn Dominguez MD Unavailabl e LeaderIvonne APRN Unavailable [phone] Encounter Details Date Type Department Care Team (Late st Contact Info) Description 03/29/2025 Procedure Pass [facility] US [address] [place] [address] Social History Tobacco Use Types Packs/Day Years [...] st Contact Info) Description 04/05/2025 Procedure Pass [facility] - [place] [address] [facility] [facility], 6th [place] [address] 04/29/2025 1:30 PM EST Office Visit [facility] Cardiology [address] [facility] [place] [address] 05/04/2025 8:15 AM EST Appointment [facility] [place] [address] [facility], 6th [place] [address] Aleshia Leonard MD 55 [facility] 630 [place] [address] MARIA VICTORIA@[facility] 05/04/2025 9:00 AM EST Office Visit [facility] Division of [place]iac Surgery 55 [facility], 6th Floor, [address] [place] [address] Aleshia Leonard MD 55 [facility] 630 [place] [address] MARIA VICTORIA@[facility] 06/29/2025 8:30 AM EST Office Visit [facility] Cardiovascular Medicine 32 [facility], 5th Floor, [address] [place] [address] Geronimo Thompson MD 55 [facility] [address] [place] [phone] GEORGINA@[email or web address] documented as of this encounter Visit Diagnoses Not on filedocumented in this encounter Additional Health Concerns Infection Onset Date Last Indicated Resolved Time CoV-Risk Comment:Per note documentation 03/28/2025 03/28/2025 9:57 AM EDT documented as of this encounter Care Teams Bar Steward Relationship Specialty Start Date End Date Carolina Madison MD [address] [place] [address] PCP - General Internal Medicine 12/10/24 Aleshia Leonard MD [address] [address] MARIA VICTORIA@[email or web address] Thoracic Surgery 01/26/25 Bryn Dominguez MD 19 [place] [address] [email or web address] Cardiology 02/25/25 Leader, Ivonne London APRN 19 [place] [address] [email or web address] Nurse Practitioner 04/06/25 documented as of this encounter Additional Source Comments The information contained in this document represents components of the legal health record. It is not the complete legal health record.[facility]
--- OUTSIDE RECORDS SUMMARY | 2025-04-22 16:11 | XMS_ITS | Clinical Summary ---
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
--- OUTSIDE RECORDS SUMMARY | 2025-04-22 16:11 | XMS_ITS | Encounter Summary ---
Author Organization [facility] Address 399 [facility] [address] [place] [address] Phone Care Team Providers Care Sandblaster Stone Name Role Phone Carolina Madison MD Primary Care Provider [phone] Aleshia Leonard MD Unavailable [phone] Bryn Dominguez MD Unavailabl e LeaderIvonne APRN Unavailable [phone] Encounter Details Date Type Department Care Team (Late st Contact Info) Description 03/25/2025 Procedure Pass [facility] Cardiac US [address] [place] [address] Social History Tobacco Use Types Packs/Day Years [...] 8:00 AM EDT Debra Barnes RN * [place] Suicide Severity Rating Scale (Screener/Recent Self-Report) Question [...] Care - CT 32 [facility], 6th [place] [address] 04/29/2025 1:30 PM EST Office Visit [facility] Cardiology 19 [place] [address] 05/04/2025 8:15 AM EST Appointment [facility] - [place] 32 [facility], 6th [place] [address] Aleshia Leonard MD [address] [facility] [address] [place] [address] MARIA VICTORIA@[email or web address] 05/04/2025 9:00 AM EST Office Visit [facility] Division of Cardiac Surgery 55 [facility], 6th Floor, [address] [place] [address] Aleshia Leonard MD 55 [facility] 630 [place] [address] MARIA VICTORIA@[facility] 06/29/2025 8:30 AM EST Office Visit [facility] Cardiovascular Medicine [address] [facility], 5th Floor, [address] [place] [address] Geronimo Thompson MD 55 [facility] [address]B [place] [phone] GEORGINA@[email or web address] documented as of this encounter Visit Diagnoses Not on filedocumented in this encounter Additional Health Concerns Infection Onset Date Last Indicated Resolved Time CoV-Risk Comment:Per note documentation 03/28/2025 03/28/2025 9:57 AM EDT documented as of this encounter Care Teams Sandblaster Stone Relationship Specialty Start Date End Date Carolina Madison MD [address] [place] [address] PCP - General Internal Medicine 12/10/24 Aleshia Leonard MD [address] [address] MARIA VICTORIA@[facility] Thoracic Surgery 01/26/25 Bryn Dominguez MD 19 [place] [address] [email or web address] Cardiology 02/25/25 Ivonne Chicas APRN 19 [place] [address] Nurse Practitioner 04/06/25 documented as of this encounter Additional Source Comments The information contained in this document represents components of the legal health record. It is not the complete legal health record.[facility]
--- OUTSIDE RECORDS SUMMARY | 2025-04-22 16:11 | XMS_ITS | Encounter Summary ---
Author Organization [facility] Address [address] [place] [address] [place] [address] Phone Care Team Providers Care Pot Puller Name Role Phone Carolina Madison MD Primary Care Provider [phone] Aleshia Leonard MD Unavailable [phone] Bryn Dominguez MD Unavailabl e Ivonne Chicas APRN Unavailable [phone] Reason for Visit * Reason Comments Anticoagulation Encounter Details Date Type Department Care Team (Late st Contact Info) Description 04/19/2025 Telephone [facility] Anticoagulation Clinic 19 [place] [address] Luanne Hernandez, [address] [address] [email or web address] Anticoagulation Social History Tobacco Use Types Packs/Day [...] coumadin regimen and recheck date. * Luanne Hernandez, [facility] - 04/19/2025 12:42 PM EST INR today is therapeutic at 2.4 Continue warfarin 1.5 mg Tues and 1 mg all other days. Recheck INR in two weeks on 05/03/25 documented in this encounter Plan of Treatment Upcoming Encounters Date Type Department Care Team (Late st Contact Info) Description 04/05/2025 Procedure Pass [facility] - CT 32 [facility], 6th [place] [address] 04/29/2025 1:30 PM EST Office Visit [facility] Cardiology [address] [facility] [place] [address] 05/04/2025 8:15 AM EST Appointment [facility] - [place] [address] [facility], 6th [place] [address] Aleshia Leonard MD 55 [facility] 630 [place] [address] MARIA VICTORIA@[email or web address] 05/04/2025 9:00 AM EST Office Visit [facility] Division of Cardiac Surgery 55 [facility], 6th Floor, [address] [place] [address] Aleshia Leonard MD [address] [place] [address] 630 [place] [address] MARIA VICTORIA@[facility] 06/29/2025 8:30 AM EST Office Visit [facility] Cardiovascular Medicine 32 [facility], 5th Floor, [address] [place] [address] Geronimo Thompson MD [address] [phone] GEORGINA@[email or web address] documented as of this encounter Procedures Procedure Name Priority Date/Time Associated Diagnosis Comments PT-INR Routine 04/19/2025 documented in this encounter Results * PT-INR (04/19/2025) External Or Transcribed PT-INR 2.4 Blood (Blood) Historical Provider LAB BLOOD BKR ORDERABLES Final Result documented in this encounter Visit Diagnoses Diagnosis Atrial fibrillation- Primary rn long term care (current) use of anticoagulants Long-term (current) use of anticoagulants documented in this encounter Care Teams Pot Puller Relationship Specialty Start Date End Date Carolina Madison MD [address] [place] [address] PCP - General Internal Medicine 12/10/24 Aleshia Leonard MD [address] [place] [address] MARIA [email or web address] Thoracic Surgery 01/26/25 Bryn Dominguez MD 19 [place] [address] Cardiology 02/25/25 Iovnne Chicas APRN 19 [place] [address] Nurse Practitioner 04/06/25 documented as of this encounter Additional Source Comments The information contained in this document represents components of the legal health record. It is not the complete legal health record.[facility]
--- OUTSIDE RECORDS SUMMARY | 2025-04-22 16:11 | XMS_ITS | Encounter Summary ---
Author Organization [facility] Address 399 [facility] [address] [place] [address] Phone Care Team Providers Care Graphics Artist Name Role Phone Carolina Madison MD Primary Care Provider [phone] Aleshia Leonard MD Unavailable [phone] Bryn Dominguez MD Unavailabl e LeaderIvonne APRN Unavailable [phone] Encounter Details Date Type Department Care Team (Late st Contact Info) Description 03/25/2025 Procedure Pass [facility] PERIOPERATIVE DEPT 55 [place] [phone] Social History Tobacco Use Types Packs/Day Years [...] 8:00 AM EDT Debra Barnes RN * [place] Suicide Severity Rating Scale (Screener/Recent Self-Report) Question [...] st Contact Info) Description 04/05/2025 Procedure Pass [facility] - CT [address] [place] [address], [address] [place] [address] 04/29/2025 1:30 PM EST Office Visit P Cardiology 19 [place] [address] 05/04/2025 8:15 AM EST Appointment [facility] - [place] 32 [facility], 6th [place] [address] Aleshia Leonard MD 55 [facility] [address] [place] [address] MARIA VICTORIA@[email or web address] 05/04/2025 9:00 AM EST Office Visit [facility] Division of Cardiac Surgery 55 [facility], 6th Floor, [address] [place] [address] Aleshia Leonard MD 55 [facility] 630 [place] [address] MARIA VICTORIA@[facility] 06/29/2025 8:30 AM EST Office Visit [facility] Cardiovascular Medicine [address] [facility], 5th Floor, [address] [place] [address] Geronimo Thompson MD 55 [facility] [address]B [place] [phone] GEORGINA@[facility] documented as of this encounter Visit Diagnoses Not on filedocumented in this encounter Additional Health Concerns Infection Onset Date Last Indicated Resolved Time CoV-Risk Comment:Per note documentation 03/28/2025 03/28/2025 9:57 AM EDT documented as of this encounter Care Teams Graphics Artist Relationship Specialty Start Date End Date Carolina Madison MD [address] [place] [address] PCP - General Internal Medicine 12/10/24 Aleshia Leonard MD [address] [address] MARIA VICTORIA@[facility] Thoracic Surgery 01/26/25 Bryn Dominguez MD 19 [place] [address] [email or web address] Cardiology 02/25/25 Ivonne Chicas APRN 19 [place] [address] Nurse Practitioner 04/06/25 documented as of this encounter Additional Source Comments The information contained in this document represents components of the legal health record. It is not the complete legal health record.[facility]
--- OUTSIDE RECORDS SUMMARY | 2025-04-22 16:12 | XMS_ITS | Encounter Summary ---
Author Organization [facility] Address 399 [facility] [address] [place] [address] Phone Care Team Providers Care Chisel Trimmer Name Role Phone Carolina Madison MD Primary Care Provider [phone] Aleshia Leonard MD Unavailable [phone] Bryn Dominguez MD Unavailabl e Ivonne Chicas APRN Unavailable [phone] Encounter Details Date Type Department Care Team (Late st Contact Info) Description 01/19/2025 Procedure Pass [facility] Imaging - MRI, Main [place] [address] [place] [address] Social History Tobacco Use Types [...] st Contact Info) Description 04/05/2025 Procedure Pass [facility] - CT 32 [facility], 6th [place] [address] 04/29/2025 1:30 PM EST Office Visit [facility] Cardiology [address] [facility] [place] [address] 05/04/2025 8:15 AM EST Appointment [facility] - CT 32 [facility], 6th [place] [address] Aleshia Leonard MD 55 [facility] 630 [place] [address] MARIA VICTORIA@[facility] 05/04/2025 9:00 AM EST Office Visit [facility] Division of Cardiac Surgery 55 [facility], 6th Floor, [address] [place] [address] Aleshia Leonard MD 55 [facility] 630 [place] [address] MARIA VICTORIA@[facility] 06/29/2025 8:30 AM EST Office Visit [facility] Cardiovascular Medicine 32 [facility], 5th Floor, [address] [place] [address] Geronimo Thompson MD 55 [facility] [address] [place] [phone] GEORGINA@[email or web address] documented as of this encounter Visit Diagnoses Not on filedocumented in this encounter Additional Health Concerns Infection Onset Date Last Indicated Resolved Time CoV-Risk Comment:Per note documentation 03/28/2025 03/28/2025 9:57 AM EDT documented as of this encounter Care Teams Chisel Trimmer Relationship Specialty Start Date End Date Carolina Madison MD [facility] [place] [address] PCP - General Internal Medicine 12/10/24 Aleshia Leonard MD [address] [address] MARIA VICTORIA@[email or web address] Thoracic Surgery 01/26/25 Bryn Dominguez MD 19 [place] [address] [email or web address] Cardiology 02/25/25 Ivonne Chicas APRN [address] [place] [address] [email or web address] Nurse Practitioner 04/06/25 documented as of this encounter Additional Source Comments The information contained in this document represents components of the legal health record. It is not the complete legal health record.[facility]
--- OUTSIDE RECORDS SUMMARY | 2025-04-22 16:12 | XMS_ITS | Clinical Summary ---
Author Organization [facility] Address [address] [place] [address] Care Team Providers Care Person Investigator Name Role Phone Nicolette Wilson DO Primary Care Provider [phone] Allergies No known active allergies Medications Medication [...] Mother Relation Name Status Comments Brother Father [place], CVD Maternal Cousin Breast Cance r Maternal [...] age to complete this topic Care Teams Person Investigator Relationship Specialty Start Date End Date Nicolette Wilson DO PCP - General Family Medicine 07/16/17
--- OUTSIDE RECORDS SUMMARY | 2025-04-22 16:12 | XMS_ITS | Encounter Summary ---
Author Organization [facility] Address 399 [facility] [address] [place] [address] Phone Care Team Providers Care Coal Hauler Name Role Phone Carolina Madison MD Primary Care Provider [phone] Aleshia Leonard MD Unavailable [phone] Bryn Dominguez MD Unavailabl e Ivonne Chicas APRN Unavailable [phone] Reason for Visit * Reason Comments Anticoagulation Encounter Details Date Type Department Care Team (Late st Contact Info) Description 04/13/2025 Telephone [facility] Anticoagulation Clinic 19 [place] [address] Ivonne Chicas APRN 19 [facility] [place] [address] [email or web address] Anticoagulation Social History Tobacco Use Types Packs/Day [...] 04/06/25 for anticoagulation management. Patient resides in [place] and is living with her daughter Maciel in [facility] for a few months before going back to [place]. INR trending down. Take warfarin 1.5 mg Tues and 1 mg all other days. Recheck INR on Saturday04/19/25. documented in this encounter Plan of Treatment Upcoming Encounters Date Type Department Care Team (Late st Contact Info) Description 04/05/2025 Procedure Pass [facility] - [place] 32 [facility], [address]th [place] [address] 04/29/2025 1:30 PM EST Office Visit [facility] Cardiology [address] [place] [address] 05/04/2025 8:15 AM EST Appointment [facility] for [facility] Care - [place] 32 [facility], [address]th [place] [address] Aleshia Leonard MD [address] [address] MARIA VICTORIA@[facility] 05/04/2025 9:00 AM EST Office Visit [facility] Division of Cardiac Surgery 55 [facility], 6th Floor, [address] [place] [address] Aleshia Leonard MD [address] [address] MARIA VICTORIA@[email or web address] 06/29/2025 8:30 AM EST Office Visit [facility] Cardiovascular Medicine 32 [facility], 5th Floor, [address] [place] [address] Geronimo Magdaleno MD [address] [place] [phone] GEORGINA@[email or web address] documented as of this encounter Procedures Procedure Name Priority Date/Time Associated Diagnosis Comments PT-INR Routine 04/13/2025 documented in this encounter Results * PT-INR (04/13/2025) External Or Transcribed PT-INR 2.0 us Historical Provider LAB BLOOD BKR ORDERABLES Final Result documented in this encounter Visit Diagnoses Diagnosis Atrial fibrillation- Primary [facility] (current) use of anticoagulants Long-term (current) use of anticoagulants documented in this encounter Care Teams Coal Hauler Relationship Specialty Start Date End Date Carolina Madison MD [address] [place] [address] PCP - General Internal Medicine 12/10/24 Aleshia Leonard MD [address] [place] [address] [place] [address] MARIA VICTORIA@[email or web address] Thoracic Surgery 01/26/25 Bryn Dominguez MD 19 [place] [address] [email or web address] Cardiology 02/25/25 Ivonne Chicas APRN 19 [place] [address] [email or web address] Nurse Practitioner 04/06/25 documented as of this encounter Additional Source Comments The information contained in this document represents components of the legal health record. It is not the complete legal health record.[facility]
--- OUTSIDE RECORDS SUMMARY | 2025-04-22 16:12 | XMS_ITS | Clinical Summary ---
Author Organization [facility] Address [address] [place] [address] Phone Care Team Providers Care Insulation Supervisor Name Role Phone Carolina Madison MD Primary Care Provider [phone] Aleshia Leonard MD Unavailable [phone] Bryn Dominguez MD Unavailabl e Ivonne Chicas APRN Unavailable [phone] Allergies Active Allergy Reactions Criticality Noted Date Comments Spice Flavor Throat Tightness Medium 02/16/2025 [place] Shortness Of Breath High 04/06/2025 Medications amiodarone [...] mouth daily. Take daily as instructed by [facility] AMS clinic 150 tablet Active cyanocobalamin [...] Active Problems Problem Noted Date Diagnosed Date USP (current) use of anticoagulants 2024 Assessment & Plan (04/06/2025 12:18 PM EDT): Continue anticoagulation for atrial fibrillation On warfarin with INR Range 2.0-3.0 for 3 months per [facility] Cardio Surgery Dr Leonard (Started warfarin 03/26/25) Anticoagulation now managed by our office, [facility] Anticoagulation Clinic [phone] Confirmed patient has 1 mg tablets at home. No warfarin refill prescription needed at this time and patient is aware to call our office when one is needed INR yesterday was therapeutic at 2.3. Take warfarin 1 mg /Sat Next INR due 04/08/25 INR standing orders entered in chart and will be faxed to the following labs: [facility] [place] [phone] FAX [phone] [facility] [phone] Confirmed phone #[phone] (dtr Maciel) to be used when calling with anticoag instructions. Added this staff writer's name to Care Team Encounter for [...] INR goal 2.0-3.[address] Glez [facility] Cardiology Hypertensive disorder 01/18/2025 Severe aortic regurgitation 01/18/2025 On amiodarone therapy 01/18/2025 Stage 4 chronic kidney disease 01/18/2025 Postoperative hypothyroidism 01/18/2025 Encounters Date Type Department Care Team Description 04/19/2025 Telephone [facility] Anticoagulation Clinic [address] [place] [address] Luanne Hernandez [facility] Anticoagulation 04/13/2025 Telephone [facility] Anticoagulation Clinic [address] [place] [address] Ivonne Chicas APRN Anticoagulation 04/08/2025 Telephone [facility] Anticoagulation Clinic [address] [place] [address] Leader, Ivonne London APRN Anticoagulation 04/07/2025 Orders Only [facility] Division of Cardiac Surgery [address] [facility], 6th Floor, [address] [place] [address] Aleshia Leonard MD 04/07/2025 Transcribe Orders [facility] [address] 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 anticoagulants (Primary Dx); Atrial fibrillation, unspecified type; Encounter for education 04/02/2025 Telephone [facility] Cardiology [address] [place] [address] Fallon Newberry RN 04/01/2025 8:25 AM EDT Ancillary Procedure [facility] Imaging Bedside Ultrasound VRT [address] [place] [address] Dayana Hodgson MD Kreso, Antonia, MD 03/29/2025 Procedure Pass [facility] Cardiac US [address] [place] [address] 03/28/2025 11:35 AM EDT Ancillary Procedure [facility] Imaging Bedside Ultrasound VRT [address] [place] [address] Juju [place] CNP Kreso, Antonia, MD 03/25/2025 7:32 AM EDT Anesthesia Event [facility] PERIOPERATIVE DEPT [address] [place] [address] Say Mayo MD Jan, Daniela Nowak MD, MPH 03/25/2025 7:30 AM EDT - 03/25/2025 6:42 PM EDT Surgery [facility] PERIOPERATIVE DEPT [address] [place] [address] Aleshia Leonard MD ASCENDING AORTIC ANEURYSM GRAFT REPLACEMENT, PFO CLOSURE 03/25/2025 7:15 AM EDT Ancillary Procedure [facility] Imaging Bedside Ultrasound VRT [address] [place] [address] Say Mayo MD Kreso, Antonia, MD 03/25/2025 6:30 AM EDT Ancillary Procedure [facility] Imaging Bedside Ultrasound VRT [address] [place] [address] Say Mayo MD Kreso, Antonia, MD 03/25/2025 5:41 AM EDT - 04/05/2025 12:21 PM EDT Hospital Encounter [facility] [address] [place] [address] Aleshia Leonard MD Discharge Disposition: Home-Health Care [facility] 03/25/2025 Procedure Pass [facility] Cardiac US [address] [place] [address] 03/25/2025 Procedure Pass [facility] PERIOPERATIVE DEPT [address] [place] [phone] 03/24/2025 Documentation [facility] Division of Cardiac Surgery [address] [facility], 6th Floor, [address] [place] [address] Shilpa Hummel RN 03/12/2025 3:49 PM EDT - 03/12/2025 11:59 PM EDT Hospital Encounter [facility] Imaging - Emmanuel Berger [address] [place] [address], 2nd [place] [address] Olivier Tate PAY AGENT Discharge Disposition: Home or Self Care 03/12/2025 3:29 PM EDT - 03/12/2025 3:48 PM EDT Hospital Encounter [facility] Phleb ACC2 [address] [facility] [place] [address] Aleshia Leonard MD Discharge Disposition: Home or Self Care 03/12/2025 2:15 PM EDT - 03/12/2025 3:28 PM EDT Hospital Encounter [facility] Pulmonary and Critical Care Unit [address] [place] [address], 2nd Floor, [address] [place] [address] Aleshia Leonard MD Discharge Disposition: Home or Self Care 03/12/2025 1:00 PM EDT Pre-Admission Testing [facility] Division of Cardiac Surgery [address] [place] [address], 6th Floor, [address] [place] [address] Aleshia Leonard MD Preop cardiovascular exam (Primary Dx); Abnormal finding of blood chemistry, unspecified 03/12/2025 Orders Only [facility] EKG LAB VIRTUAL DEPARTMENT [address] [place] [address] Tasneem Cuevas Preop cardiovascular exam 03/08/2025 Orders Only [facility] Division of Cardiac Surgery [address] [place] [address], 6th Floor, [address] [place] [address] Olivier Tate, PAY AGENT SOB (shortness of breath) (Primary Dx) 02/25/2025 Documentation [facility] Division of Cardiac Surgery [address] [place] [address], 6th Floor, [address] [place] [address] Olivier Tate FNP 02/22/2025 Telephone [facility] Division of Cardiac Surgery [address] [facility], 6th Floor, [address] [place] [address] Aleshia Leonard MD 02/17/2025 9:38 PM EDT - 02/17/2025 11:59 PM EDT Hospital Encounter [facility] Imaging - MRI, Main [place] [address] [place] [address] Bryn Dominguez MD Discharge Disposition: Home or Self Care 02/16/2025 1:45 PM EDT Office Visit [facility] Division of Cardiac Surgery [address] [facility], 6th Floor, [address] [place] [address] Aleshia Leonard MD Aneurysm of ascending aorta without rupture (Primary Dx) 02/12/2025 1:20 PM EDT Office Visit [facility] Cardiology Referral Images [address] [facility] [address] [place] [address] [facility] Ad[facility], Provider 02/12/2025 1:15 PM EDT Office Visit [facility] Cardiology Referral Images [address] [facility] [address] [place] [address] [facility] [place], Provider Diagnosis unknown 02/12/2025 1:10 PM EDT Office Visit [facility] Cardiology Referral Images [address] [facility] [address] [place] [address] [facility] Ad[place], Provider Diagnosis unknown 02/12/2025 Procedure Pass [facility] Cardiology Referral Images [address] [facility] [address] [place] [address] 02/12/2025 Procedure Pass [facility] Cardiology Referral Images [address] [facility] [address] [place] [address] 02/12/2025 Orders Only [facility] Cardiovascular Medicine [address] [facility], 5th Floor, [address] [place] [address] Unknown, Jose J, Diagnosis unknown (Primary Dx) 02/12/2025 Documentation [facility] Division of Cardiac Surgery [address] [facility], 6th Floor, [address] [place] [address] Olivier Tate FNP 02/10/2025 Ancillary Orders [facility] [address] [place] [address] Aleshia Leonard MD 02/09/2025 11:55 AM EDT - 02/09/2025 12:39 PM EDT Surgery [facility] Endoscopy [address] [place] [address] Anastacio Yuen MD TRANSESOPHAGEAL ECHOCARDIOGRAM 02/09/2025 11:39 AM EDT Anesthesia Event [facility] Endoscopy [address] [place] [address] Candido Pryor MD Allen, George Kenton, MD 02/09/2025 9:35 AM EDT - 02/09/2025 11:59 PM EDT Hospital Encounter [facility] Cath/EP Lab [address] [place] [address] Bryn Dominguez MD Discharge Disposition: Home or Self Care 02/09/2025 8:00 AM EDT - 02/09/2025 9:30 AM EDT Surgery [facility] Cath/EP Lab [address] [place] [address] Bryn Dominguez MD Right and Left Heart Catheterization with possible LVGRAM 02/09/2025 7:16 AM EDT - 02/09/2025 1:55 PM EDT Hospital Encounter [facility] Endoscopy [address] [place] [address] Bryn Dominguez MD Discharge Disposition: Home or Self Care 02/09/2025 Procedure Pass [facility] Endoscopy [address] [place] [address] 02/09/2025 Procedure Pass [facility] Cath/EP Lab [address] [place] [address] 01/25/2025 Telephone [facility] Cardiology [address] [facility] [place] [address] Vanessa Galicia, CARLYN Referral 01/19/2025 Procedure Pass [facility] - [facility], [facility] [address] [place] [address] 01/19/2025 Procedure Pass [facility], [facility] [address] [place] [address] 01/18/2025 Procedure Pass [facility] Cath/EP Lab [address] [place] [address] from Last 3 Months Immunizations Immunization Administration [...] st Contact Info) Description 04/05/2025 Procedure Pass [facility] [place] [address] [facility], 6th [place] [address] 04/29/2025 1:30 PM EST Office Visit [facility] Cardiology [address] [facility] [place] [address] 05/04/2025 8:15 AM EST Appointment [facility] [place] [address] [facility], 6th [place] [address] Aleshia Leonard MD [address] [place] [address] MARIA [email or web address] 05/04/2025 9:00 AM EST Office Visit [facility] Division of Cardiac Surgery [address] [facility], 6th Floor, [address] [place] [address] Aleshia Leonard MD [address] [facility] [address] [place] [address] MARIA [email or web address] 06/29/2025 8:30 AM EST Office Visit [facility] Cardiovascular Medicine [address] [facility], 5th Floor, [address] [place] [address] Geronimo Thompson MD [address] [facility] [address] [place] [phone] [email or web address] Maintenance Due Date Last Done Comments Adult Td,Tdap Booster 1945 DEPRESSION SCREENING 1957 HEPATITIS C SCREENING 09/04/1963 ZOSTER VACCINES (1 of 2) 09/04/1995 OSTEOPOROSIS SCREENING INITIAL (ONE-TIME) 2010 PNEUMOCOCCAL VACCINES (50+ years) (2 of 2 - PPSV23, PCV20, or PCV21) 11/16/2017 09/21/2017 RSV VACCINE (1 - 1-dose 75+ series) 2020 COVID-19 VACCINE ( - 2024- season) 2025 BLOOD PRESSURE 08/16/2025 [...] this topic Medical Devices Implanted Type Area Computer Equipment Repairer Device Identifier Shelf Expiration Date Model / Serial / Lot Valve Heart 21mm Perimount Magna Ease Bioprosthesis [place] Aortic Pericardial Thermafix - [id number] Implanted:Qty: 1 on 03/25/2025 by Aleshia Leonard MD at [facility] BONETISSUE N/A: Heart [employer] 11/27/2027 [id number] / [id number] / N/A Graft Vascular [id number] Vascutek Gelweave Polyester Woven Straight Aortic - [id number] Implanted:Qty: 1 on 03/25/2025 by Aleshia Leonard MD at [facility] SMDA N/A: Aorta [employer] 01/15/2028 [id number] / [id number] / [id number] Device Clip 35mmatriclip Flex V Jamee Malleable Shaft Sterile - [id number] Implanted:Qty: 1 on 03/25/2025 by Aleshia Leonard MD at [facility] N/A: Heart [employer] 11/16/2027 [id number] / [id number] Procedures Procedure Name Priority Date/Time Associated Diagnosis [...] EDT MAGNESIUM Routine 04/03/2025 5:03 AM EDT ECG 12-LEAD Routine 04/03/2025 4:55 AM EDT POCT GLUCOSE Routine 04/02/2025 8:59 [...] A LINE Routine 03/25/2025 8:36 AM EDT CA INSERT/PLACE FLOW DIRECT CATH PERF Routine 03/25/2025 8:36 AM EDT CA ECHO HEART TRANSESOPH PRO BE PLACEMT PERF Routine 03/25/2025 8:36 AM EDT CA INSERT CATH ART PERCUT SHORTTERM PERF Routine 03/25/2025 8:35 AM EDT POCT HEPARIN DOSE RESPONSE Routine 03/25 7:55 AM EDT AIRWAY PLACEMENT Routine 03/25/2025 7:46 AM EDT POCT HEPARIN DOSE RESPONSE Routine 03/25 7:45 AM EDT BASIC METABOLIC PANEL (BMP) STAT 02/2025 7:42 AM EDT LACTATE (BLOOD GAS) STAT 03/25/2025 7:42 AM EDT ARTERIAL BLOOD GAS PLUS STAT 03/25/20 7:42 AM EDT CA VALVULOPLASTY AORTIC VALV E OPEN CARD BYP SIMPLE 03/25/2025 7:32 AM EDT Aortic valve insufficiency, etiology of cardiac valve disease unspecified Ascending aortic aneurysm, unspecified whether ruptured Atrial fibrillation, unspecified type Special Needs CPT Code(s):AscAoAneurysm Graft Replacement-- [id number]-- 69887QWK (Tissue)-- 86674 CA EXCLUSION JAMEE OPEN TM STRNT/THRCM ANY METHOD 03/25/2025 7:32 AM EDT Aortic valve insufficiency, etiology of cardiac valve disease unspecified Ascending aortic aneurysm, unspecified whether ruptured Atrial fibrillation, unspecified type Special Needs CPT Code(s):AscAoAneurysm Graft Replacement-- [id number]-- 43591HSH (Tissue)-- 74480 CA -AORT GRF W/CARD BYP F/AORTIC DS OTH/THN DSJ 03/25/2025 7:32 AM EDT Aortic valve insufficiency, etiology of cardiac valve disease unspecified Ascending aortic aneurysm, unspecified whether ruptured Atrial fibrillation, unspecified type Special Needs CPT Code(s):AscAoAneurysm Graft Replacement-- [id number]-- 43548PBL (Tissue)-- 33227 ANESTHESIA POINT OF CARE GAMALIEL GE CAPTURE [...] 02/09/2025 11:11 AM EDT Dysphagia, unspecified type CA ESOPHAGOGASTRODUODENOSCOP Y TRANSORAL DIAGNOSTIC 02/09/2025 11:11 AM [...] Provider LAB BLOOD BKR ORDERABLES Final Result * Prepare RBC, 1 Units (04/06/2025 12:37 AM EDT) Only the most recent of2 resultswithin the time period is included. Product Code [id number] 04/06/2025 12:37 AM EDT [facility] Unit Number [id number] 04/06/20 12:37 AM EDT [facility] Crossmatch Interpretation Compatible 04/04/2025 10:05 AM EDT [facility] Product Status Issued, Final 025 12:37 AM EDT [facility] ABO/Rh of Unit APOS 04/06/2025 12:37 AM EDT [facility] Expiration Date/Time [id number] 04/06/2025 12:37 AM EDT [facility] Unit Barcode 6200 04/06/2025 12:37 AM EDT [facility] 03/12/2025 5:1 6 PM EDT Khari Walker PA-C BLOOD BANK PRODUCT ORDE RABLES Final Result Performing Organization Address City/[facility]/ZIP Co de Phone Number [address] [address] * POCT Glucose (04/05/2025 8:02 AM EDT) Only the most recent of41 resultswithin the time period is included. Glucose, POCT 104 70 - 110 mg/dL [facility] 04/05/2025 8:02 AM EDT 04/05/2025 8:04 AM EDT Aleshia Leonard MD POINT OF CARE TEST ORDERABLES F inal Result Performing Organization Address City/[facility]/ZIP Co de Phone Number [address] [address] * (ABNORMAL) CBC (04/05/2025 5:36 AM EDT) Only the most recent of18 resultswithin the time period is included. WBC 10.87 4.00 - 11.00 K/uL [facility] RBC 2.77(L) 4.00 - 5.20 M/uL [facility] HGB 8.7(L) 12.0 - 16.0 g/dL [facility] HCT 26.7(L) 36.0 - 46.0 % [facility] PLT 384 150 - 450 K/uL [facility] MCV 96.4 80.0 - 100.0 fL [facility] MCH 31.4(H) 27.0 - 31.0 pg [facility] MCHC 32.6 32.0 - 36.0 g/dL [facility] RDW 15.9(H) 11.5 - 14.5 % [facility] MPV 9.9 8.4 - 12.0 fL [facility] NRBC 0.00 0.00 /100 WBCs [facility] ABSOLUTE NRBC 0.00 0.00 K/uL [facility] Blood 04/05/2025 5:36 AM EDT 04/05/2025 6:07 AM EDT Shanellenadine Pathako PAY AGENT LAB BLOOD BKR ORDERABLES Final Result [address] [address] * Type and Screen (ABO,Rh,Antibody Screen) (04/05/2025 5:36 AM EDT) Only the most recent of4 resultswithin the time period is included. Expiration Date of Sample 04/08/2025 11:59 PM [facility] Antibody Screen Negative 04/05/2025 6:52 AM EDT [facility] Resulting Agency [facility] ABO A 04/05/2025 6:42 AM EDT [facility] Rh Positive 04/05/2025 6:42 AM EDT [facility] Blood 04/05/2025 5:36 AM EDT 04/05/2025 5:49 AM EDT Khari Walker PA-C LAB BLOOD BANK TEST ORD ERABLES Final Result [address] [address] * Magnesium (04/05/2025 5:36 AM EDT) Only the most recent of29 resultswithin the time period is included. MAGNESIUM 2.4 1.7 - 2.4 mg/dL [facility] Blood 04/05/2025 5:36 AM EDT 04/05/2025 6:07 AM EDT [facility] LAB BLOOD BKR ORDERABLES Final Result Performing Organization Address [facility] Co de Phone Number [address] [address] * (ABNORMAL) Basic metabolic panel (04/05/2025 5:36 AM EDT) Only the most recent of29 resultswithin the time period is included. SODIUM 140 135 - 145 mmol/L [facility] POTASSIUM 3.6 3.4 - 5.0 mmol/L [facility] CHLORIDE 97(L) 98 - 108 mmol/L [facility] CO2 28 23 - 32 mmol/L [facility] BUN 44(H) 8 - 25 mg/dL [facility] CREATININE 2.21(H) 0.50 - 1.00 mg/dL [facility] GLUCOSE 93 70 - 110 mg/dL [facility] CALCIUM 8.9 8.5 - 10.5 mg/dL [facility] EGFR 22(L) >59 mL/min/1. 73m2 [facility] Comment:Estimated glomerular filtration rate calculated using the CKD-EPI refit equation. ANION GAP 15 3 - 17 mmol/L [facility] Blood 04/05/2025 5:36 AM EDT 04/05/2025 6:07 AM EDT [facility] LAB BLOOD BKR ORDERABLES Final Result Performing Organization Address City/[facility]/ZIP Co de Phone Number [address] [address] * ECG 12-LEAD (04/05/2025 5:32 AM EDT) Only the most recent of10 resultswithin the time period is included. Systolic Blood Pressure 127 mmHg [facility] Diastolic Blood Pressure 58 mmHg [facility] Ventricular Rate EKG/MIN 63 BPM [facility] Atrial Rate 63 BPM [facility] CA Interval 174 ms [facility] QRS Duration 88 ms [facility] QT Interval 370 ms [facility] QTC Interval 378 ms [facility] P [place] 57 degrees [facility] R [place] 4 degrees [facility] T [place] 69 degrees [facility] 04/05/2025 5:32 AM EDT [...] JOSE Whitman (296) on 04/20/2025 5:17:57 PM us Nicolette Pike ANIMATION PRODUCER, DNP ECG ORDERABLES F inal Result Performing Organization Address City/[facility]/ZIP Co de Phone Number [facility] * Sodium, random urine (04/04/2025 6:29 PM EDT) URINE SODIUM 20 mmol/L [facility] Comment:Results must be inte rpreted based on patient context and with other clinical and laboratory data. Urine (Urine) 04/04/2025 6:2 9 PM EDT 04/04/2025 9:32 PM EDT us Khari Walker PA-C LAB URINE ORDERABLES Fi nal Result [facility] [address] [place] [address] * Osmolality, Random Urine (04/04/2025 6:29 PM EDT) URINE OSMOLALITY 326 150 - 1,150 mOsm/kg water [facility] Urine (Urine) 04/04/2025 6:2 9 PM EDT 04/04/2025 9:32 PM EDT us Khari Walker PA-C LAB URINE ORDERABLES Fi nal Result [facility] [address] [place] [address] * Transfuse RBC (04/04/2025 4:29 PM EDT) us Khari Walker PA-C NURSING TREATMENT ORDER TRENT - BLOOD ADMIN Final Result Performing Organization Address City/[facility]/ZIP Co de Phone Number [facility] * XR CHEST [...] be used to guide medication dosing. Negative [facility] 04/02/2025 4:33 AM EDT 04/02/2025 4:53 AM EDT us Nicolette Pike CNP, [facility] LAB BLOOD ORDERAB LES Final Result Performing Organization Address [facility] Co de Phone Number [address] [address] * (ABNORMAL) LFTs (hepatic panel) (04/02/2025 12:34 AM EDT) Only the most recent of10 resultswithin the time period is included. ALBUMIN 3.2(L) 3.3 - 5.0 g/dL [facility] TOTAL BILIRUBIN 0.5 0.0 - 1.0 mg/dL [facility] DIRECT BILIRUBIN 0.2 0.0 - 0.3 mg/dL [facility] ALKALINE PHOSPHATASE 69 30 - 100 U/L [facility] AST 25 9 - 32 U/L [facility] ALT 13 7 - 33 U/L [facility] TOTAL PROTEIN 6.2 6.0 - 8.3 g/dL [facility] GLOBULIN 3.0 1.9 - 4.1 g/dL [facility] Blood 04/02/2025 12:3 4 AM EDT 04/02/2025 12:55 AM EDT us Nicolette Pike CNP, [facility] LAB BLOOD BKR ORD ERABLES Final Result Performing Organization Address [facility] Co de Phone Number [address] [address] * PTT (04/02/2025 12:34 AM EDT) Only the most recent of12 resultswithin the time period is included. APTT 27.8 24.0 - 37.5 sec [facility] Comment:Check MAR for the ta rget range that is ordered for your patient. Blood 04/02/2025 12:3 4 AM EDT 04/02/2025 12:55 AM EDT Nicolette Pike CNP, [facility] LAB BLOOD BKR ORD ERABLES Final Result Performing Organization Address City/[facility]/ZIP Co de Phone Number [address] [address] * Phosphorus (04/02/2025 12:34 AM EDT) Only the most recent of19 resultswithin the time period is included. PHOSPHORUS 3.6 2.6 - 4.5 mg/dL [facility] Blood 04/02/2025 12:3 4 AM EDT 04/02/2025 12:55 AM EDT Nicolette Pike CNP, [facility] LAB BLOOD BKR ORD ERABLES Final Result Performing Organization Address [facility] Co de Phone Number [address] [address] * Lactate (04/02/2025 12:34 AM EDT) Only the most recent of3 resultswithin the time period is included. LACTIC ACID (MMOL/L) 0.9 0.5 - 2.0 mmol/L [facility] Blood 04/02/2025 12:3 4 AM EDT 04/02/2025 12:54 AM EDT us Nicolette Pike CNP, KUSUM LAB BLOOD BKR ORD ERABLES Final Result Performing Organization Address City/[facility] Co de Phone Number [address] [address] * XR Chest Portable (04/01/2025 10:13 PM [...] examination in Epic: S/P Cardiac Surgery COMPARISON: XR CHEST PORTABLE [...] clinician's provided indication for this examination in [facility]:S/P Cardiac Surgery COMPARISON: XR CHEST PORTABLE 03:24:09.000 [...] at bothbases. l il ral pleural effusions. [facility] IMG XR CHEST Final Result * GLUCOSE (BLOOD GAS) (04/01/2025 12:48 PM EDT) Only the most recent of4 resultswithin the time period is included. Glucose, whole bld 106 70 - 110 mg/dL [facility] Blood 04/01/2025 12:4 8 PM EDT 04/01/2025 1:03 PM EDT Nicolette Pike ANIMATION PRODUCER, DNP LAB BLOOD BKR ORD ERABLES Final Result [facility] [address] [place] [address] * (ABNORMAL) POTASSIUM (BLOOD GAS) (04/01/2025 12:48 PM EDT) Only the most recent of4 resultswithin the time period is included. POTASSIUM 3.2(L) 3.5 - 5.0 mmol/L [facility] Blood 04/01/2025 12:4 8 PM EDT 04/01/2025 1:03 PM EDT Nicolette Pike ANIMATION PRODUCER, DNP LAB BLOOD BKR ORD ERABLES Final Result Performing Organization Address City/[facility] Co de Phone Number [address] [address] * Respiratory Pathogen PCR Panel (04/01/2025 11:43 AM EDT) Specimen Type NASOPHARYNGEAL SWAB [facility] Adenovirus Not Detected Not Detected [facility] Coronavirus, not SARS-CoV-2 Not Detected Not Detected [facility] Comment:This component of th e panel targets Coronavirus 229E, HKU1, NL63, and OC43 only. Human Metapneumovirus Not Detected Not Detected [facility] Influenza A Not Detected Not Detected [facility] Comment:This component of th e panel detects Influenza A and can differentiate among certain Influenza A subtypes including H1, H1-2009, H3, and a non-specified subtype. Influenza B Not Detected Not Detected [facility] Parainfluenza 1-4 Not Detected Not Detected [facility] Respiratory Syncytial Virus Not Detected Not Detected [facility] Human Rhinovirus/Entero virus Not Detected Not Detected [facility] Bordetella Parapertussis Not Detected Not Detected [facility] Bordetella Pertussis Presumptive: Not Detected Presumptiv e: Not Detected [facility] Chlamydia Pneumoniae Presumptive: Not Detected Presumptiv e: Not Detected [facility] Mycoplasma Pneumoniae Presumptive: Not Detected Presumptiv e: Not Detected [facility] Comment: Performance of this assay has not been established for specimens collected from individuals without signs or symptoms of respiratory infections. This test has [place] authorization from the FDA for use by authorized laboratories. 04/01/2025 11:4 3 AM EDT 04/01/2025 11:43 AM EDT Aleshia Leonard MD LAB GENERAL ORDERABLES Final Re sult Performing Organization Address [facility] Co de Phone Number [address] [address] * Serology comment (04/01/2025 11:43 AM EDT) SEROLOGY COMMENT Test Added by MD/Care Unit on: [facility] Comment:04/01/25 BY KENTRELL MONTERROSO 04/01/2025 11:4 3 AM EDT 04/01/2025 11:43 AM EDT Aleshia Leonard MD LAB BLOOD ORDERABLES Final Resu lt Performing Organization Address [facility] Co de Phone Number [address] [address] * Microbiology Add On (04/01/2025 10:52 AM EDT) Only the most recent of2 resultswithin the time period is included. CONTACT INFORMATION [address] [facility] TEST REQUESTED RESPIRATORY EXPANDED VIRAL PANEL [facility] Comments (Chemistry) ADD ON COMPLETE. [facility] Specimen Type RESPIRATORY NASOPHARYNGEAL SWAB [facility] Specimen Date/Time 03 29 25 05 [facility] 04/01/2025 10:5 2 AM EDT 04/01/2025 11:45 AM EDT Shanelle PFEIFFER LAB GENERAL ORDERABLES Final R esult Performing Organization Address [facility] Co de Phone Number [address] [address] * (ABNORMAL) Cystatin C (04/01/2025 9:00 AM EDT) Cystatin C 2.58(H) 0.61 - 0.95 mg/L [facility] eGFR (Cystatin C) 19(L) >59 mL/min/1. 73m2 [facility] Comment: Cystatin C-based eGFR may differ substantially from creatinine-based eGFR in patients with abnormal muscle mass or acutely changing renal function. Please interpret together with relevant clinical features. Blood 04/01/2025 9:00 AM EDT 04/01/2025 9:22 AM EDT us Shanelle Mcmullen PAY AGENT LAB BLOOD BKR ORDERABLES Final Result [facility] [address] [place] [address] * Bedside Ultrasound (04/01/2025 8:20 AM EDT) us Dayana Hodgson MD IMG POINT OF CARE [...] clinician's provided indication for this examination in [facility]: Post-Op COMPARISON: XR CHEST PORTABLE FINDINGS: Devices/Tubes/Lines: [...] clinician's provided indication for this examination in [facility]:Post-Op COMPARISON: XR CHEST PORTABLE FINDINGS: Devices/Tubes/Lines: Status [...] AM EDT) URINE UREA NITROGEN 123 mg/dL [facility] Urine (Urine) 04/01/2025 3:3 5 AM EDT 04/01/2025 3:54 AM EDT Aleshia Leonard MD LAB URINE ORDERABLES Final Resu lt Performing Organization Address [facility] Co de Phone Number [address] [address] * Creatinine, random urine (04/01/2025 3:35 AM EDT) URINE CREATININE 14 mg/dL [facility] Urine (Urine) 04/01/2025 3:3 5 AM EDT 04/01/2025 3:54 AM EDT Aleshia Leonard MD LAB URINE ORDERABLES Final Resu lt Performing Organization Address City/[facility] Co de Phone Number [address] [address] * Lactate (blood gas) (04/01/2025 2:42 AM EDT) Only the most recent of35 resultswithin the time period is included. Lactate, blood 1.1 0.5 - 2.0 mmol/L [facility] Blood 04/01/2025 2:42 AM EDT 04/01/2025 2:58 AM EDT Nicolette Pike ANIMATION PRODUCER, DNP LAB BLOOD BKR ORD ERABLES Final Result [address] [address] * (ABNORMAL) VENOUS BLOOD GAS PLUS (03/31/2025 11:56 PM EDT) Only the most recent of9 resultswithin the time period is included. FIO2 0.40/30LP M FIO2/L min [facility] PH 7.46(H) 7.30 - 7.40 [facility] PCO2 53(H) 38 - 50 mm[Hg] [facility] PO2 37 35 - 50 mm[Hg] [facility] Base Excess, unspecified 11.1(H) 0.0 - 3.0 mmol/L [facility] HCO3, unspecified 36(H) 24 - 30 mmol/L [facility] SODIUM 131(L) 135 - 145 mmol/L [facility] POTASSIUM 3.2(L) 3.5 - 5.0 mmol/L [facility] IONIZED CALCIUM 1.17 1.14 - 1.30 mmol/L [facility] Glucose, whole bld 245(H) 70 - 110 mg/dL [facility] HGB (BG) 8.2(L) 12.0 - 16.0 g/dl [facility] SO2-VENOUS (SO2, venous) 63.1 60.0 - 85.0 % [facility] Blood 03/31/2025 11:5 6 PM EDT 04/01/2025 12:02 AM EDT Aleshia Leonard MD LAB BLOOD ORDERABLES Final Resu lt Performing Organization Address City/[facility]/ZIP Co de Phone Number [address] [address] * (ABNORMAL) Ionized calcium (03/31/2025 11:56 PM EDT) IONIZED CALCIUM 1.12(L) 1.14 - 1.30 mmol/L [facility] Blood 03/31/2025 11:5 6 PM EDT 04/01/2025 12:02 AM EDT us Nicolette Pike CNP, KUSUM LAB BLOOD BKR ORD ERABLES Final Result Performing Organization Address [facility] Co de Phone Number [address] [address] * (ABNORMAL) Oxygen saturation, mixed venous (03/31/2025 9:24 AM EDT) Only the most recent of8 resultswithin the time period is included. SO2-MIXED (SO2, mixed bld) 59.9(L) 65.0 - 75.0 % [facility] Blood 03/31/2025 9:24 AM EDT 03/31/2025 9:50 AM EDT us Nicolette Pike CNP, KUSUM LAB BLOOD BKR ORD ERABLES Final Result Performing Organization Address [facility] Co de Phone Number [address] [address] * XR Chest Portable (03/30/2025 9:00 PM [...] with an element of interventricular interdependence. us lAeshia Leonard MD CV ECHO ORDERABLES Final Result [...] edited the reportoriginally created by TAYLOR WILLINGHAM. Juju Sibley ANIMATION PRODUCER CV US VASCULAR Final Result * US [...] edited the reportoriginally created by TAYLOR WILLINGHAM. Juju Sibley [facility] US VASCULAR Final Result * (ABNORMAL) Arterial blood gas PLUS (03/30/2025 2:45 AM EDT) Only the most recent of32 resultswithin the time period is included. FIO2 0.65 FIO2/L min [facility] Comment:HFNC 50L PH 7.51(H) 7.35 - 7.45 [facility] PCO2 53(H) 35 - 42 mm[Hg] [facility] PO2 68(L) 80 - 100 mm[Hg] [facility] Base Excess, unspecified 16.4(H) 0.0 - 3.0 mmol/L [facility] HCO3, unspecified 41(H) 24 - 30 mmol/L [facility] SODIUM 139 135 - 145 mmol/L [facility] POTASSIUM 3.6 3.5 - 5.0 mmol/L [facility] IONIZED CALCIUM 1.00(L) 1.14 - 1.30 mmol/L [facility] Glucose, whole bld 121(H) 70 - 110 mg/dL [facility] HGB (BG) 8.3(L) 12.0 - 16.0 g/dl [facility] O2 Sat (SO2, arterial) 94.9 94.0 - 99.0 % [facility] Blood 03/30/2025 2:45 AM EDT 03/30/2025 2:50 AM EDT us Aleshia Leonard MD LAB BLOOD ORDERABLES Final Resu lt [address] [address] * XR Chest Portable (03/29/2025 9:10 PM [...] enlargement of cardiac silhouette,and bilateral pleural effusions. Joelle Hoang ANIMATION PRODUCER IMG XR CHEST Final R esult * COVID Pandemic Respiratory Viral Order (PRO) (03/29/2025 5:16 AM EDT) Only the most recent of2 resultswithin the time period is included. Test Ordered Rapid COVID has been ordered [facility] SPECIMEN SOURCE/DESCRIPTIO N NASOPHARYNGEAL SWAB [facility] SARS-CoV 2 (COVID-19) PCR Negative Negative [facility] Comment: Negative results do not preclude SARS-CoV-2 [...] AM EDT 03/29/2025 8:54 AM EDT Minal Abraham ANIMATION PRODUCER LAB GENERAL ORDERABLES Final Res ult [address] [address] * XR Chest Portable (03/29/2025 4:27 AM [...] clinician's provided indication for this examination in [facility]: Dyspnea on exertion COMPARISON: XR CHEST PORTABLE [...] clinician's provided indication for this examination in Epic:Dyspnea on exertion COMPARISON: XR CHEST PORTABLE FINDINGS: [...] can not be ruled out. Minal Abraham ANIMATION PRODUCER IMG XR CHEST Final Result * XR [...] provided indication for this examination in Epic: Pulmonary Edema COMPARISON: XR CHEST PORTABLE FINDINGS: [...] 3:35 PM EDT) Specimen Type NASOPHARYNGEAL SWAB [facility] Influenza A PCR NEGATIVE for INFLUENZA A NEGATIVE for INFLUENZA A [facility] Influenza B PCR NEGATIVE for INFLUENZA B NEGATIVE for INFLUENZA B [facility] RSV PCR NEGATIVE for RSV NEGATIVE for RSV [facility] Comment: This test has been authorized by the FDA under an Emergency Use Authorization (EUA) for use by authorized laboratories. 03/28/2025 3:35 PM EDT 03/28/2025 5:42 PM EDT Juju Sibley CNP LAB GENERAL ORDERABLES Final Result [facility] [address] [place] [address] * INSERT ARTERIAL LINE (03/28/2025 3:10 PM EDT) Narrative Juju Sibley CNP - 03/28/2025 3:10 PM EDT Juju Sibley CNP 03/28/2025 3:14 PM Arterial Line Date/Time: 03/28/2025 3:10 PM Performed by: Juju Sibley CNP Authorized by: Juju Sibley CNP [place] Protocol: Consent obtained: Yes Time out: Immediately [...] EDT) RBC 0-2 0 - 2 /hpf [facility] WBC <10 <10 /hpf [facility] Comment:0 to 2 WBC's per hpf 03/28/2025 7:41 AM EDT 03/28/2025 9:05 AM EDT Juju Sibley CNP URINE ORDERABLES Final Result [facility] [address] [place] [address] * (ABNORMAL) Urinalysis w/reflex Urine Culture (03/28/2025 7:41 AM EDT) COLOR COLORLESS(A ) Yellow [facility] CLARITY Clear Clear [facility] GLUCOSE Negative Negative [facility] BILI Negative Negative [facility] KETONES Negative Negative [facility] SPECIFIC GRAVITY 1.008 1.001 - 1.035 [facility] BLOOD 1+(A) Negative [facility] PH 5.0 5.0 - 9.0 [facility] Protein-UA Negative Negative [facility] UROBILINOGEN Negative Negative [facility] N[facility] Negative Negative [facility] Leukocyte esterase, ur Negative Negative [facility] Urine (Urine) 03/28/2025 7: 41 AM EDT 03/28/2025 9:05 AM EDT Juju Sibley CNP LAB URINE ORDERABLES Final Re sult Performing Organization Address [facility] Co de Phone Number [address] [address] * MICROALBUMIN/CREATININE, RANDOM URINE (03/28/2025 7:41 AM EDT) MICROALB/CRE RATIO TOO LOW TO CALCULATE <30.0 mg/g Cre [facility] 03/28/2025 7:41 AM EDT 03/28/2025 9:05 AM EDT Juju Sibley CNP URINE ORDERABLES Final Result Performing Organization Address [facility] Co de Phone Number [address] [address] * TOTAL PROTEIN CREATININE RATIO, RANDOM URINE (03/28/2025 7:41 AM EDT) URINE TOTAL PROTEIN <4.0 0.0 - 13.5 mg/dL [facility] URINE CREATININE 25 mg/dL [facility] URINE TP CRE RATIO TOO LOW TO CALCULATE <0.15 [facility] Urine (Urine) 03/28/2025 7:4 1 AM EDT 03/28/2025 9:05 AM EDT Juju Sibley CNP LAB URINE ORDERABLES Final Re sult Performing Organization Address [facility] Co de Phone Number [address] [address] * Heparin PF4 antibody (HIT) (03/28/2025 7:41 AM EDT) [facility] HIT IGG ANTIBODY Negative Negative [facility] Comment: This result indicates [...] 4T's score). Heparin PF4 Antibody 0.00 U/mL [facility] Comment:Nighat ACOSTA, Jericho FAM, Marcia WATERS, Nikhil EDWARDS, Olivia I. High sensitivity and specificity of an automated IgG specific chemiluminescence immunoassay for diagnosis of HIT. Blood. 2017Mar 06 132(12):1345 to 1349. doi: 10.1182/blood 2018 04 023740. Epub 2017Jan 14. PMID: [id number] PMCID: [id number]. Blood 03/28/2025 7:41 AM EDT 03/28/2025 8:16 AM EDT Juju Sibley CNP LAB BLOOD BKR ORDERABLES Jessica l Result [facility] [address] [place] [address] * Microalbumin, Urine (03/28/2025 7:41 AM EDT) [facility] URINE MICROALBUMIN <0.2 0.0 - 2.0 mg/dL [facility] 03/28/2025 7:41 AM EDT 03/28/2025 9:05 AM EDT Juju Sibley ANIMATION PRODUCER LAB URINE ORDERABLES Final Re sult [address] [address] * (ABNORMAL) SPEP PANEL (03/28/2025 7:41 AM EDT) [facility] Total Protein 4.8(L) 6.0 - 8.3 g/dL [facility] IMMUNOGLOBULIN G 669 614 - 1,295 mg/dL [facility] IgA 154 69 - 309 mg/dL [facility] IMMUNOGLOBULIN M 43(L) 53 - 334 mg/dL [facility] SPEP Normal pattern [facility] Comment: Normal SPEP: Normal pattern Performing Pathologist, Stan Ambriz M.D., Ph.D. [phone] Serum protein electrophoresis results should be evaluated in the context of separately reported serum free light chain levels and ratio when these additional results are available. Blood 03/28/2025 7:41 AM EDT 03/28/2025 8:06 AM EDT Juju Sibley ANIMATION PRODUCER LAB BLOOD BKR ORDERABLES Jessica l Result Performing Organization Address [facility] de Phone Number [address] [address] * (ABNORMAL) Free light chains, serum (03/28/2025 7:41 AM EDT) FREE KAPPA LT CHAIN 39.0(H) 3.3 - 19.4 mg/L [facility] FREE LAMBDA LT CHAIN 33.7(H) 5.7 - 26.3 mg/L [facility] FREE KAPPA LAMBDA RAT 1.16 0.30 - 1.70 [facility] Blood 03/28/2025 7:41 AM EDT 03/28/2025 8:06 AM EDT Juju Sibley [facility] LAB BLOOD BKR ORDERABLES Jessica l Result Performing Organization Address [facility] Co de Phone Number [address] [address] * XR Chest Portable (03/27/2025 10:44 PM [...] clinician's provided indication for this examination in [facility]: Pulmonary Edema COMPARISON: XR CHEST PORTABLE 2024- [...] clinician's provided indication for this examination in [facility]:Pulmonary Edema COMPARISON: XR CHEST PORTABLE 2024- FINDINGS: [...] detailed in the report. Juju Sibley CNP IM XR CHEST Final Result * (ABNORMAL) Oxygen saturation, arterial (03/26/2025 9:32 PM EDT) O2 Sat (SO2, arterial) 92.9(L) 94.0 - 99.0 % [facility] Blood 03/26/2025 9:32 PM EDT 03/26/2025 9:35 PM EDT Nicolette Pike CNP, DNP LAB BLOOD BKR ORD ERABLES Final Result [facility] [address] [place] [address] * XR Chest Portable (03/26/2025 8:48 PM [...] clinician's provided indication for this examination in [facility]: Pulmonary Edema COMPARISON: XR CHEST PORTABLE 02:47:41.000 [...] clinician's provided indication for this examination in [facility]:Pulmonary Edema COMPARISON: XR CHEST PORTABLE 02:47:41.000 FINDINGS: [...] included. FIBRINOGEN 286 200 - 400 mg/dL [facility] Blood 03/26/2025 3:10 AM EDT 03/26/2025 3:37 AM EDT Nicolette Pike ANIMATION PRODUCER, DNP LAB BLOOD BKR ORD ERABLES Final Result [address] [address] * XR Chest Portable (03/26/2025 2:49 AM [...] clinician's provided indication for this examination in [facility]: Post-Op; cardiac surgery COMPARISON: XR CHEST PORTABLE 2024- FINDINGS: Devices/Tubes/Lines: Interval removal of endotracheal and [...] clinician's provided indication for this examination in [facility]:Post-Op; cardiac surgery COMPARISON: XR CHEST PORTABLE FINDINGS: [...] report originally createdby Danica Junior. Nicolette Pike ANIMATION PRODUCER, DNP IMG XR CHEST F inal Result [...] Epic: Post-Op; cardiac surgery COMPARISON: XR CHEST PA [...] report originallycreated by Jacquelyn Mcleod. Nicolette Pike ANIMATION PRODUCER, DNP IMG XR CHEST F inal Result * MRSA Nasal Screen (03/25/2025 1:45 PM EDT) Special Requests No Special Requests 03/25/2025 1:45 PM EDT [facility] MRSA Nasal Culture NEGATIVE FOR MRSA 03/26/2025 2:03 PM EDT [facility] Other (Nasal) 03/25/2025 1:4 5 PM EDT 03/25/2025 5:18 PM EDT us Nicolette Pike CNP, KUSUM LAB MICROBIOLOGY CULTURE ORDERABLES Final Result Performing Organization Address [facility] Co de Phone Number [address] [address] * Vancomycin Resistant Enterococci (VRE), Rectal Screen (03/25/2025 1:45 PM EDT) Pathologist [facility] Special Requests No Special Requests 03/25/2025 1:45 PM EDT [facility] VRE Rectal Culture NEGATIVE FOR VRE 03/26/2025 2:16 PM EDT [facility] Stool (Stool swab) 03/25/2025 1:45 PM EDT 03/25/2025 5:20 PM EDT us Nicolette Pike CNP, KUSUM LAB MICROBIOLOGY CULTURE ORDERABLES Final Result Performing Organization Address [facility] Co de Phone Number [address] [address] * CB COMP PROBE PLACED BY PREMA Lozada/ COLOR FLOW AND COMP DOPPLER (03/25/2025 1:23 PM EDT) Pathologist [facility] Body Surface Area 1.79 m2 Anatomical Region [...] CARDIAC OR 103 90 - 130 sec [facility] 03/25/2025 12:3 9 PM EDT 03/25/2025 12:37 PM EDT Aleshia Leonard MD LAB POCT ENTER/EDIT ORDERABLES Final Result [address] [address] * POCT Heparin Protamine Titration (03/25/2025 12:39 PM EDT) Only the most recent of8 resultswithin the time period is included. Heparin Protamine Titration 0.0 u/ml [facility] Misc Test Ref Range 0.0-1.2 u/ml [facility] Comment (Coag) Red [facility] 03/25/2025 12:3 9 PM EDT 03/25/2025 12:37 PM EDT us Aleshia Leonard MD POINT OF CARE TEST ORDERABLES F inal Result Performing Organization Address [facility] Co de Phone Number [address] [address] * (ABNORMAL) PUMP BLOOD GAS PLUS (03/25/2025 11:44 AM EDT) Only the most recent of6 resultswithin the time period is included. FIO2/FLOW CPB FIO2/L min [facility] TEMP. 37.0 deg C [facility] PH(UNCORRECTED) 7.43 [facility] PH 7.43 7.32 - 7.45 [facility] PCO2(UNCORRECTE D) 38 mm[Hg] [facility] PCO2 38 35 - 50 mm[Hg] [facility] PO2(UNCORRECTED ) 250 mm[Hg] [facility] PO2 250(H) 40 - 90 mm[Hg] [facility] Base Excess, unspecified 0.3 0.0 - 3.0 mmol/L [facility] HCO3, unspecified 25 24 - 30 mmol/L [facility] SODIUM 137 135 - 145 mmol/L [facility] POTASSIUM 5.1(H) 3.5 - 5.0 mmol/L [facility] HGB (BG) 7.6(L) 12.0 - 16.0 g/dl [facility] IONIZED CALCIUM 0.89(L) 1.14 - 1.30 mmol/L [facility] [place] Glucose, whole bld 126(H) 70 - 110 mg/dL [facility] [place] SO2, unspecified 99.6 94.0 - 99.9 % [facility] [place] Comment: SO2 Reference Range: Arterial: 94.0-99.9 Venous: 60.0-85.0 Blood 03/25/2025 11:4 4 AM EDT 03/25/2025 11:49 AM EDT us Say Mayo MD LAB BLOOD ORDERABLES Final Result [address] [address] * Anatomic Pathology (Non-MGB) (03/25/2025 10:37 AM EDT) Report [address], [place] [address] Surgical Pathology Report Patient Name: ROSSY MITCHELL : 1945 (Age: 79) Sex: F Location: [place] [address] Institution: [facility] Date of Operation: 03/25/2025 Date [...] Sectioning reveals a white, smooth cut surface. Coal Inspector sections are submitted in A1-A2. Additional it sales representative sections are submitted in A3-A10 on [...] cm aggregate of white-bautista rubbery tissue fragments. Coal Inspector sections of each cusp to include the possible fused commissure are submitted in B1. Grossed by: Mimi Campos Immunohistochemical and in-situ hybridization tests performed at [facility] have been developed and their performance characteristics determined by the Immunohistochemistry Laboratories in the Department of Pathology at [facility]. They have not been cleared or approved by the U.S.Food and Drug Administration (FDA); the FDA has determined that such clearance or approval is not necessary. [facility] [place] Clinical History Aortic regurgitation and ascending aortic aneurysm; atrial fibrillation [facility] [place] Final Diagnosis A. AORTA EXCISION: AORTITIS Note: [...] [place]. B. AORTIC VALVE EXCISION: Myxomatous degeneration. [facility] [place] Gross Description Received fresh in 2 parts, each labeled Rossy Mitchell and . A. Labeled aorta is a 6.5 x 6.0 x 1.4 cm aggregate of large caliber vessel fragments. The tunica externa is bautista-pink with minimal hemorrhage, and the tunica intima is white-bautista and smooth with minimal yellow plaque. Sectioning reveals a white, smooth cut surface. Coal Inspector sections are submitted in A1-A2. Additional it sales representative sections are submitted in A3-A10 on [...] cm aggregate of white-bautista rubbery tissue fragments. Coal Inspector sections of each cusp to include the possible fused commissure are submitted in B1. [facility] [place] Conversion Type (Aorta) 03/25/2025 10:37 AM EDT 03/25/2025 1:40 PM EDT Conversion Type (Heart Valve, [place] Aortic) 03/25/2025 10:37 AM EDT 03/25/2025 1:40 PM EDT Aleshia Leonard MD LAB PATHOLOGY ORDERABLES Edited Result - Final [address] [address] * CA INSERT/PLACE FLOW DIRECT CATH PERF, ANES DOUBLE LUMEN SHEATH - PA LINE, ANES VIP PLUS CATH - CENTRAL PA LINE (03/25/2025 8:36 AM EDT) Narrative Say Mayo MD - 03/25/2025 8:36 AM EDT Say Mayo MD 03/25/2025 8:36 AM Pulmonary Artery Line Placement Procedure Note: Start time: 03/25/2025 8:18 AM Anesthesiologist: Say Mayo MD Fellow/Resident/OCULAR CARE TECHNOLOGIST: Daniela Motley MD, MPH Performed: fellow/resident/OCULAR CARE TECHNOLOGIST [place] Protocol performed: consent obtained, patient identified with [...] 30 seconds? yes personal protection worn? yes news assistant followed standard precautions? yes sterile technique [...] and free fluid flow Complications?: No us Sya Mayo MD CA ANESTHESIA Final Resul t * CA ECHO HEART TRANSESOPH PROBE PLACEMT PERF (03/25/2025 8:36 AM EDT) Narrative Say Mayo MD - 03/25/2025 8:36 AM EDT Say Mayo MD 03/25/2025 8:36 AM Transesophageal Echocardiogram Procedure Note: Performed by: anesthesiologist Anesthesiologist: Say Mayo MD [place] Protocol performed: consent obtained, patient identified with 2 identifiers, correct procedure verified, correct site and laterality confirmed, verified equipment, coagulation status reviewed and implant history reviewed. Placement notes: probe advanced in esophagus atraumatic us Say Mayo MD CA ANESTHESIA Final Resul t * CA INSERT CATH ART PERCUT SHORTTERM PERF (03/25/2025 8:35 AM EDT) Say Macdonald MD - 03/25/2025 8:35 AM EDT Say Mayo MD 03/25/2025 9:20 AM Arterial Line Placement Procedure Note: Start Time 03/25/2025 7:22 AM: Location: pre-op Procedure performed by: fellow/resident/OCULAR CARE TECHNOLOGIST Anesthesiologist: Say Mayo MD Fellow/Resident/OCULAR CARE TECHNOLOGIST: Daniela Motley MD, MPH Indication(s): hemodynamic monitoring, arterial blood gas and frequent labs [place] Protocol performed: consent obtained, patient identified with [...] Transducer type: regular us Say Mayo MD CA ANESTHESIA Edited Resu lt - Final * POCT heparin dose response (03/25/2025 7:55 AM EDT) Only the most recent of2 resultswithin the time period is included. ACT FROM CARDIAC OR 126 90 - 130 sec [facility] [place] Projected heparin concentration 4.6 u/ml [facility] [place] Heparin dose response 71 50 - 120 sec [facility] [place] 03/25/2025 7:55 AM EDT 03/25/2025 8:00 AM EDT Aleshia Leonard MD POINT OF CARE TEST ORDERABLES F inal Result [address] [address] * ANES ETT DOUBLE LUMEN - AIRWAY LDA (03/25/2025 7:46 AM EDT) Narrative Say Mayo MD - 03/25/2025 7:46 AM EDT Say Mayo MD 03/25/2025 8:36 AM Airway Placement Procedure Note: Patient was not difficult to intubate. Procedure performed by: fellow/resident/OCULAR CARE TECHNOLOGIST Anesthesiologist: Say Mayo MD Fellow/Resident/OCULAR CARE TECHNOLOGIST: Daniela Motley MD, MPH Airway procedure initiated [...] tongue in neutral position. Say Mayo MD CA ANESTHESIA Final Resul t * ANESTHESIA POINT OF CARE IMAGE CAPTURE (03/25/2025 7:13 AM EDT) Anatomical Region Laterality Modality Ultrasound Narrative 03/25/2025 7:13 AM EDT Daniela Motley MD, MPH 03/25/2025 7:13 AM Anesthesia Point of Care Image Capture Performed by: Say Mayo MD Authorized by: Say Mayo MD Accession Number: [id number] Say Mayo MD IMG POINT OF CARE EXAMS Fin al Result * ANESTHESIA POINT OF CARE IMAGE CAPTURE (03/25/2025 6:28 AM EDT) Anatomical Region Laterality Modality Ultrasound Narrative 03/25/2025 6:28 AM EDT Daniela Motley MD, MPH 03/25/2025 6:28 AM Anesthesia Point of Care Image Capture Performed by: Daniela Motley MD, MPH Authorized by: Say Mayo MD Accession Number: [id number] Say Mayo MD IMG POINT OF CARE [...] S.aureus) NEGATIVE FOR MRSA (Methicillin Resistant S.aureus) [facility] [place] MSSA PCR SCREEN NEGATIVE FOR MSSA (Methicillin Susceptible S.aureus) NEGATIVE FOR MSSA (Methicillin Susceptible S.aureus) [facility] [place] Comment:This test was conduc rafael as part of Pre-Operative Screening for Staphylococcus aureus. Please direct any questions regarding this result to the Ordering Provider. Nasal (Nasal) 03/12/2025 3:4 6 PM EDT 03/12/2025 5:47 PM EDT Olivier PFEIFFER LAB GENERAL ORDERABLES Final Result [address] [address] * (ABNORMAL) Comprehensive metabolic panel (03/12/2025 3:46 PM EDT) SODIUM 142 135 - 145 mmol/L [facility] [place] POTASSIUM 4.6 3.4 - 5.0 mmol/L [facility] [place] CHLORIDE 105 98 - 108 mmol/L [facility] [place] CO2 25 23 - 32 mmol/L [facility] [place] BUN 30(H) 8 - 25 mg/dL [facility] [place] CREATININE 2.01(H) 0.50 - 1.00 mg/dL [facility] [place] GLUCOSE 86 70 - 110 mg/dL [facility] [place] ALBUMIN 4.0 3.3 - 5.0 g/dL [facility] [place] TOTAL PROTEIN 6.8 6.0 - 8.3 g/dL [facility] [place] CALCIUM 9.4 8.5 - 10.5 mg/dL [facility] [place] ALKALINE PHOSPHATASE 46 30 - 100 U/L [facility] [place] TOTAL BILIRUBIN 0.4 0.0 - 1.0 mg/dL [facility] [place] AST 16 9 - 32 U/L [facility] [place] ALT 13 7 - 33 U/L [facility] [place] GLOBULIN 2.8 1.9 - 4.1 g/dL [facility] [place] EGFR 25(L) >59 mL/min/1. 73m2 [facility] [place] Comment:Estimated glomerular filtration rate calculated using the CKD-EPI refit equation. ANION GAP 12 3 - 17 mmol/L [facility] [place] 03/12/2025 3:46 PM EDT 03/12/2025 5:50 PM EDT us Olivier Tate PAY AGENT LAB BLOOD BKR ORDERABLES Jessica l Result [address] [address] * ABO and Rh (03/12/2025 3:46 PM EDT) Expiration Date of Sample 04/07/2025 11:59 PM [facility] [place] ABO A 04/06/2025 8:35 AM EDT [facility] [place] Rh Positive 04/06/2025 8:35 AM EDT [facility] [place] Comment:Patient Transfused, specimen exp. date updated Resulting Agency [facility] 03/12/2025 3:46 PM EDT 03/12/2025 5:16 PM EDT us Blood Bank LAB BLOOD BANK TEST ORDERABLES F inal Result [facility] [place] [address] [place] [address] * (ABNORMAL) CBC and differential (03/12/2025 3:46 PM EDT) Only the most recent of2 resultswithin the time period is included. WBC 5.43 4.00 - 11.00 K/uL [facility] [place] RBC 3.77(L) 4.00 - 5.20 M/uL [facility] [place] HGB 11.9(L) 12.0 - 16.0 g/dL [facility] [place] HCT 37.6 36.0 - 46.0 % [facility] [place] PLT 255 150 - 450 K/uL [facility] [place] MCV 99.7 80.0 - 100.0 fL [facility] [place] MCH 31.6(H) 27.0 - 31.0 pg [facility] [place] MCHC 31.6(L) 32.0 - 36.0 g/dL [facility] [place] RDW 13.5 11.5 - 14.5 % [facility] [place] MPV 10.3 8.4 - 12.0 fL [facility] [place] NRBC 0.00 0.00 /100 WBCs [facility] [place] ABSOLUTE NRBC 0.00 0.00 K/uL [facility] DIFF METHOD Auto [facility] NEUTS 65.7 48.0 - 76.0 % [facility] [place] LYMPHS 20.6 18.0 - 41.0 % [facility] [place] MONOS 10.7 4.0 - 11.0 % [facility] [place] EOS 1.3 0.0 - 5.0 % [facility] [place] BASOS 1.5 0.0 - 1.5 % [facility] [place] % IMMATURE GRANS 0.2 0.0 - 0.9 % [facility] [place] ABSOLUTE NEUTS 3.57 1.92 - 7.60 K/uL [facility] [place] ABSOLUTE LYMPHS 1.12 0.72 - 4.10 K/uL [facility] [place] ABSOLUTE MONOS 0.58 0.16 - 1.10 K/uL [facility] ABSOLUTE EOS 0.07 0.00 - 0.50 K/uL [facility] [place] ABSOLUTE BASOS 0.08 0.00 - 0.15 K/uL [facility] [place] ABS IMMATURE GRANS 0.01 0.00 - 0.09 K/uL [facility] [place] Blood 03/12/2025 3:46 PM EDT 03/12/2025 5:48 PM EDT Marjoriea Lea PAY AGENT LAB BLOOD BKR ORDERABLES Jessica l Result [address] [address] * (ABNORMAL) Hemoglobin A1c (03/12/2025 3:46 PM EDT) HEMOGLOBIN A1C 5.8(H) 4.3 - 5.6 % [facility] [place] Comment:HbA1c levels 5.7-6.4 % represent pre-diabetes, indicating impaired glucose control and an increased risk of developing diabetes compared with lower HbA1c levels. The diagnostic HbA1c level for diabetes is 6.5% or greater. CALC MEAN BLD GLUC 120 mg/dL [facility] [place] Comment:There is no establis [facility] normal range for the Calculated Mean Blood Glucose (CMBG), however a HbA1c of 5.6% (upper limit of normal) represents a CMBG of 114 mg/dL. The diagnostic hemoglobin A1c level for diabetes is greater than or equal to 6.5% which represents a CMBG greater than or equal to 140 mg/dL. 03/12/2025 3:46 PM EDT 03/12/2025 5:49 PM EDT us Olivier Tate PAY AGENT LAB BLOOD BKR ORDERABLES Jessica l Result Performing Organization Address [facility]/ZIP Co de Phone Number [address] [address] * Pulmonary Function Test Reason for Exam: Dyspnea/Shortness of Breath; Type of PFT Test: Spirometry with bronchodilator, DLCO, Lung Volumes; Performing Location: [facility] Main [place]; Request Procedure [place]: PFT; Type: PFT - Complete; [facility] PFT Lab will ... (03/12/2025 2:29 [...] Dr. Bala Leon as teaching physician, have reviewed the [...] Outside Images for comparison purposes only. Result [facility] Admitting CV CARDIAC CATH ORDERABLE S Final Result * Outside Echo Report Only (02/12/2025 1:08 PM EDT) Other Narrative SYSTEMGENERATED, DOCUMENTATION - 02/12/2025 1:08 PM EDT Outside Images for comparison purposes only. [facility] Admitting CV ECHO ORDERABLES Final Result * Outside Echo Report Only (02/12/2025 1:08 PM EDT) Other Narrative SYSTEMGENERATED, DOCUMENTATION - 02/12/2025 1:08 PM EDT Outside Images for comparison purposes only. [facility] Admitting CV ECHO ORDERABLES Final Result [...] obtained by: Consent obtained with help of [place] public transit trolley driver as well as family members. Frannie Alves [...] Yuen MD - 02/09/2025 11:04 AM EDT [facility] Patient Name: Rossy [...] infection, need for surgery, blood transfusions (unless Orthodox),heart and respiratory complications amongst others. The endoscope [...] specimens collected. Recommendation: - Refer to a car repairer apprentice as previously scheduled.The CB will be scheduled and endoscopy forcontinuation of her sedation for patient's convenience Anastacio Yuen MD 02/09/2025 11:53:27 AM This report has been signed electronically. Number of Addenda: 0 Estimated Blood Loss: Estimated blood loss: none. [address] [place] [phone] us Unknown Unknown GI PROCEDURE ORDERABLES Final [...] micropuncture kit. Sheath upsized to 7F sheath. Epping-Srikanth catheter advanced and balloon inflated. Catheter passed [...] with direct LDL (01/18/2025 1:43 PM EDT) [facility] CHOLESTEROL 210(H) 0 - 200 mg/dL [facility] TRIGLYCERIDES 118 0 - 150 mg/dL [facility] HDL 66 40 - 80 mg/dL [facility] LDL Chol (Direct) 134(H) 0 - 130 mg/dL [facility] CARDIAC RISK RATIO 3.2 [facility] Blood 01/18/2025 1:43 PM EDT 01/18/2025 1:46 PM EDT Bryn Curran MD LAB BLOOD B KR ORDERABLES Final Result [address] [phone] * TSH with reflex (01/18/2025 1:43 PM EDT) [facility] SCREENING PANEL: TSH 2.77 0.34 - 5.9 uIU/mL [facility] Blood 01/18/2025 1:43 PM EDT 01/18/2025 1:46 PM EDT Bryn Curran MD LAB BLOOD B KR ORDERABLES Final Result [address] [phone] from Last 3 Months or Most Recently Relevant to Health Maintenance Insurance MEDICARE PART A & B MEDICARE PART A & B MEDICARE PART A & B MEDICARE PART A & B MEDICARE PART A & B MEDICARE PART A & B Advance Directives For more information, please contact: [phone] (9AM - 5PM [facility], Saturday-Saturday) Documents on File Type Date Recorded Patient Coal Inspector Expl anation Healthcare Proxy 03/12/2025 1:59 PM Advance Directive - Non Epic LMR 10/10/2009 12:00 AM * Full Code (Latest Code Status on File) Date Activated Date Inactivated Comments 03/25/2025 1:44 PM Question Answer Comments Code Status Confirmed With: Other (specify below ) Code Discussion Comments: OR Care Teams Insulation Supervisor Relationship Specialty Start Date End Date Carolina Madison MD [address] [place] [address] PCP - General Internal Medicine 12/10/24 Aleshia Leonard MD [address] [place] [address] [email or web address] Thoracic Surgery 01/26/25 Bryn Dominguez MD [address] [place] [address] [email or web address] Cardiology 02/25/25 LeaderIvonne APRN [address] [place] [address] [email or web address] Nurse Practitioner 04/06/25 Additional Source Comments The information contained in this document represents components of the legal health record. It is not the complete legal health record.[facility]
--- OUTSIDE RECORDS SUMMARY | 2025-04-22 16:12 | XMS_ITS | Encounter Summary ---
Author Organization [facility] Address [address] [place] [address] Phone Care Team Providers Care Lead Java Developer Architect Name Role Phone Carolina Madison MD Primary Care Provider [phone] Aleshia Leonard MD Unavailable [phone] Bryn Dominguez MD Unavailabl e LeaderIvonne APRN Unavailable [phone] Encounter Details Date Type Department Care Team (Late st Contact Info) Description 12/22/2024 Telephone [facility] Division of Cardiac Surgery [address] [facility], 6th [address], [address] [place] [address] Aleshia Leonard MD [address] [facility] [address] [place] [address] [email or web address] Social History Tobacco Use Types Packs/Day Years [...] st Contact Info) Description 04/05/2025 Procedure Pass [facility] [place] [address] [facility]th [place] [address] 04/29/2025 1:30 PM EST Office Visit [facility]iology [address] [place] [address] 05/04/2025 8:15 AM EST Appointment [facility] Outpatient Care - [place] [address] [facility]th [place] [address] Aleshia Leonard MD [address] [facility] [address] [place] [address] [email or web address] 05/04/2025 9:00 AM EST Office Visit [facility] Division of Cardiac Surgery [address] [facility], [address] [place] [address] lAeshia Leonard MD [address] [facility] [address] [place] [address] [email or web address] 06/29/2025 8:30 AM EST Office Visit [facility] Cardiovascular Medicine [address] [facility], 5th [address], [address] [place] [address] Geronimo [place] MD [address] [facility] [address] [place] [phone] [email or web address] documented as of this encounter Visit Diagnoses Not on filedocumented in this encounter Additional Health Concerns Infection Onset Date Last Indicated Resolved Time CoV-Risk Comment:Per note documentation 03/28/2025 03/28/2025 9:57 AM EDT documented as of this encounter Care Teams Lead Java Developer Architect Relationship Specialty Start Date End Date Carolina Madison MD [facility] [address] PCP - General Internal Medicine 12/10/24 Aleshia Leonard MD [address] [place] [id number] [email or web address] Thoracic Surgery 01/26/25 Bryn Dominguez MD [address] [place] [address] Cardiology 02/25/25 Ivonne Chicas APRN [address] [place] [id number] Nurse Practitioner 04/06/25 documented as of this encounter Additional Source Comments The information contained in this document represents components of the legal health record. It is not the complete legal health record.[facility]
--- OUTSIDE RECORDS SUMMARY | 2025-04-22 16:12 | XMS_ITS | Encounter Summary ---
Author Organization [facility] Address [address] [place] [address] Phone Care Team Providers Care V Belt Finisher Name Role Phone Carolina Madison MD Primary Care Provider [phone] Aleshia Leonard MD Unavailable [phone] Bryn Dominguez MD Unavailabl e Ivonne Chicas APRN Unavailable [phone] Encounter Details Date Type Department Care Team (Late st Contact Info) Description 01/19/2025 Procedure Pass [facility] Imaging - MRI, [address] [place] [address] [place] [address] Social History Tobacco Use Types [...] [facility] [place] [address] [facility], 6th [place] [address] 04/29/2025 1:30 PM EST Office Visit [facility] [address] [facility] [place] [address] 05/04/2025 8:15 AM EST Appointment [facility] - [place] [address] [facility], 6th [place] [address] Aleshia Leonard MD [address] [facility] [address] [place] [address] [email or web address] 05/04/2025 9:00 AM EST Office Visit [facility] Division of Cardiac Surgery [address] [facility], 6th Floor, [address] [place] [address] Aleshia Leonard MD [address] [facility] [address] [place] [address] MARIA [email or web address] 06/29/2025 8:30 AM EST Office Visit [facility] Cardiovascular Medicine [address] [facility], 5th [address], [address] [place] [address] Geronimo [place] MD [address] [facility] [address] [place] [phone] [email or web address] documented as of this encounter Visit Diagnoses Not on filedocumented in this encounter Additional Health Concerns Infection Onset Date Last Indicated Resolved Time CoV-Risk Comment:Per note documentation 03/28/2025 03/28/2025 9:57 AM EDT documented as of this encounter Care Teams V Belt Finisher Relationship Specialty Start Date End Date Carolina Madison [place] [address] PCP - General Internal Medicine 12/10/24 Aleshia Leonard MD [address] [address] MARIA [email or web address] Thoracic Surgery 01/26/25 Bryn Dominguez MD 19 [place] [address] [email or web address] Cardiology 02/25/25 Ivonne Chicas APRN [address] [place] [address] [email or web address] Nurse Practitioner 04/06/25 documented as of this encounter Additional Source Comments The information contained in this document represents components of the legal health record. It is not the complete legal health record.[facility]
--- OUTSIDE RECORDS SUMMARY | 2025-04-22 16:12 | XMS_ITS | Encounter Summary ---
Author Organization [facility] Address [address] [facility] [address] [place] [address] Phone Care Team Providers Care Manager Retirement Name Role Phone Carolina Madison MD Primary Care Provider [phone] Aleshia Leonard MD Unavailable [phone] Bryn Dominguez MD Unavailabl e Ivonne Chicas APRN Unavailable [phone] Encounter Details Date Type Department Care Team (Late st Contact Info) Description 02/09/2025 Procedure Pass [facility] Cath/EP Lab [address] [place] [address] Social History Tobacco Use Types [...] Contact Info) Description 04/05/2025 Procedure Pass [facility] - [place] 32 [facility], 6th [place] [address] 04/29/2025 1:30 PM EST Office Visit [facility] Cardiology 19 [place] [address] 05/04/2025 8:15 AM EST Appointment [facility] [place] [address] [facility], [address]th [place] [address] Aleshia Leonard MD [address] [address] MARIA VICTORIA@[facility] 05/04/2025 9:00 AM EST Office Visit [facility] Division of Cardiac Surgery [address] [facility], 6th Floor, [address] [place] [address] Aleshia Leonard MD [address] [place] [address] MARIA VICTORIA@[facility] 06/29/2025 8:30 AM EST Office Visit [facility] Cardiovascular Medicine [address] [facility], 5th Floor, [address] [place] [address] Geronimo Thompson MD [address] [phone] GEORGINA@[facility] documented as of this encounter Visit Diagnoses Not on filedocumented in this encounter Additional Health Concerns Infection Onset Date Last Indicated Resolved Time CoV-Risk Comment:Per note documentation 03/28/2025 03/28/2025 9:57 AM EDT documented as of this encounter Care Teams Manager Retirement Relationship Specialty Start Date End Date Carolina Madison MD [address] [place] [address] PCP - General Internal Medicine 12/10/24 Aleshia Leonard MD [address] [place] [address] MARIA VICTORIA@[facility] Thoracic Surgery 01/26/25 Bryn Dominguez MD 19 [place] [address] [email or web address] Cardiology 02/25/25 Ivonne Chicas APRN 19 [place] [address] [email or web address] Nurse Practitioner 04/06/25 documented as of this encounter Additional Source Comments The information contained in this document represents components of the legal health record. It is not the complete legal health record.[facility]
--- OUTSIDE RECORDS SUMMARY | 2025-04-22 16:12 | XMS_ITS | Encounter Summary ---
Author Organization [facility] Address [address] [facility] [address] [place] [address] Phone Care Team Providers Care Fire Lieutenant Name Role Phone Carolina Madison MD Primary Care Provider Aleshia Leonard MD Unavailable [phone] Bryn Dominguez MD Unavailabl e Ivonne Chicas APRN Unavailable [phone] Encounter Details Date Type Department Care Team (Late st Contact Info) Description 02/09/[address] [facility] Endoscopy [address] [place] [address] Social History Tobacco Use Types [...] Contact Info) Description 04/05/2025 Procedure Pass [facility] for Outpatient Care - [place] 32 [facility], 6th [place] [address] 04/29/2025 1:30 PM EST Office Visit [facility] Cardiology [address] [place] [address] 05/04/2025 8:15 AM EST Appointment [facility] for [facility] Care - [place] 32 [facility], 6th [place] [address] Aleshia Leonard MD [address] [address] MARIA VICTORIA@[facility] 05/04/2025 9:00 AM EST Office Visit [facility] Division of Cardiac Surgery [address] [facility], 6th Floor, [address] [place] [address] Aleshia Leonard MD [address] [address] MARIA VICTORIA@[email or web address] 06/29/2025 8:30 AM EST Office Visit [facility] Cardiovascular Medicine [address] [facility], 5th Floor, [address] [place] [address] Geronimo Thompson MD [address] [phone] GEORGINA@[facility] documented as of this encounter Visit Diagnoses Not on filedocumented in this encounter Additional Health Concerns Infection Onset Date Last Indicated Resolved Time CoV-Risk Comment:Per note documentation 03/28/2025 03/28/2025 9:57 AM EDT documented as of this encounter Care Teams Fire Lieutenant Relationship Specialty Start Date End Date Carolina Madison MD [address] [place] [address] PCP - General Internal Medicine 12/10/24 Aleshia Leonard MD [address] [place] [address] MARIA VICTORIA@[facility] Thoracic Surgery 01/26/25 Bryn Dominguez MD 19 [place] [address] [email or web address] Cardiology 02/25/25 Ivonne Chicas APRN 19 [place] [address] [email or web address] Nurse Practitioner 04/06/25 documented as of this encounter Additional Source Comments The information contained in this document represents components of the legal health record. It is not the complete legal health record.[facility]
--- OUTSIDE RECORDS SUMMARY | 2025-04-22 16:12 | XMS_ITS | Encounter Summary ---
Author Organization [facility] Address [address] [facility] [address] [place] [address] Phone Care Team Providers Care Assembler Fluorescent Lights Name Role Phone Carolina Madison MD Primary Care Provider [phone] Aleshia Leonard MD Unavailable [phone] Bryn Dominguez MD Unavailabl e Ivonne Chicas APRN Unavailable [phone] Encounter Details Date Type Department Care Team (Late st Contact Info) Description 02/12/2025 Procedure Pass [facility] Cardiology Referral Images [address] [place] [address] Social History Tobacco Use Types Packs/Day Years [...] st Contact Info) Description 04/05/2025 Procedure Pass [facility] - [facility] [address] [facility], 6th [place] [address] 04/29/2025 1:30 PM EST Office Visit [facility] Cardiology 19 [place] [address] 05/04/2025 8:15 AM EST Appointment [facility] - [place] [address] [facility], 6th [place] [address] Aleshia Leonard MD [address] [address] MARIA VICTORIA@[facility] 05/04/2025 9:00 AM EST Office Visit [facility] Division of Cardiac Surgery 55 [facility], 6th Floor, [address] [place] [address] Aleshia Leonard MD [address] [place] [address] MARIA VICTORIA@[facility] 06/29/2025 8:30 AM EST Office Visit [facility] Cardiovascular Medicine [address] [facility], 5th Floor, [address] [place] [address] Geronimo Thompson MD [address] [phone] GEORGINA@[email or web address] documented as of this encounter Visit Diagnoses Not on filedocumented in this encounter Additional Health Concerns Infection Onset Date Last Indicated Resolved Time CoV-Risk Comment:Per note documentation 03/28/2025 03/28/2025 9:57 AM EDT documented as of this encounter Care Teams Assembler Fluorescent Lights Relationship Specialty Start Date End Date Carolina Madison MD [address] [place] [address] PCP - General Internal Medicine 12/10/24 Aleshia Leonard MD [address] [place] [address] MARIA VICTORIA@[facility] Thoracic Surgery 01/26/25 Bryn Dominguez MD 19 [place] [address] [email or web address] Cardiology 02/25/25 Ivonne Chicas APRN 19 [place] [address] [email or web address] Nurse Practitioner 04/06/25 documented as of this encounter Additional Source Comments The information contained in this document represents components of the legal health record. It is not the complete legal health record.[facility]
--- OUTSIDE RECORDS SUMMARY | 2025-04-22 16:12 | XMS_ITS | Encounter Summary ---
Author Organization [facility] Address [address] [facility] [address] [place] [address] Phone Care Team Providers Care Knifeman Name Role Phone Carolina Madison MD Primary Care Provider Aleshia Leonard MD Unavailable [phone] Bryn Dominguez MD Unavailabl e Ivonne Chicas APRN Unavailable [phone] Encounter Details Date Type Department Care Team (Late st Contact Info) Description 02/12/2025 Procedure Pass [facility] Cardiology Referral Images [address] [place] [address] Social History Tobacco Use Types Packs/Day Years [...] st Contact Info) Description 04/05/2025 Procedure Pass [facility] - [place] [address] [facility], 6th [place] [address] 04/29/2025 1:30 PM EST Office Visit [facility] Cardiology 19 [place] [address] 05/04/2025 8:15 AM EST Appointment [facility] - [place] [address] [facility], 6th [place] [address] Aleshia Leonard MD [address] [address] MARIA VICTORIA@[email or web address] 05/04/2025 9:00 AM EST Office Visit [facility] Division of Cardiac Surgery [address] [facility], 6th Floor, [address] [place] [address] Aleshia Leonard MD [address] [place] [address] MARIA VICTORIA@[email or web address] 06/29/2025 8:30 AM EST Office Visit [facility] Cardiovascular Medicine [address] [facility], 5th Floor, [address] [place] [address] Geronimo Thompson MD [address] [phone] GEORGINA@[email or web address] documented as of this encounter Visit Diagnoses Not on filedocumented in this encounter Additional Health Concerns Infection Onset Date Last Indicated Resolved Time CoV-Risk Comment:Per note documentation 03/28/2025 03/28/2025 9:57 AM EDT documented as of this encounter Care Teams Knifeman Relationship Specialty Start Date End Date Carolina Madison MD [address] [place] [address] PCP - General Internal Medicine 12/10/24 Aleshia Leonard MD [address] [place] [address] MARIA VICTORIA@[facility] Thoracic Surgery 01/26/25 Bryn Dominguez MD 19 [place] [address] [email or web address] Cardiology 02/25/25 Ivonne Chicas APRN 19 [place] [address] [email or web address] Nurse Practitioner 04/06/25 documented as of this encounter Additional Source Comments The information contained in this document represents components of the legal health record. It is not the complete legal health record.[facility]
--- OUTSIDE RECORDS SUMMARY | 2025-04-22 16:12 | XMS_ITS | Encounter Summary ---
Author Organization [facility] Address [address] [place] [address] [place] [address] Phone Care Team Providers Care Artist Relationship Manager Name Role Phone Carolina Madison MD Primary Care Provider [phone] Aleshia Leonard MD Unavailable [phone] Bryn Dominguez MD Unavailabl e Ivonne Chicas APRN Unavailable [phone] Encounter Details Date Type Department Care Team (Late st Contact Info) Description 01/18/2025 Procedure Pass [facility] Cath/EP Lab [address] [place] [address] Social History Tobacco Use Types [...] Contact Info) Description 04/05/2025 Procedure Pass [facility] - [facility] [address] [facility], 6th [place] [address] 04/29/2025 1:30 PM EST Office Visit [facility] Cardiology [address] [place] [address] 05/04/2025 8:15 AM EST Appointment [facility] - [place] [address] [facility], 6th [place] [address] Aleshia Leonard MD 55 [facility] [address] [place] [address] MARIA VICTORIA@[facility] 05/04/2025 9:00 AM EST Office Visit [facility] Division of Cardiac Surgery 55 [facility], 6th Floor, [address] [place] [address] Aleshia Leonard MD 55 [facility] [address] [place] [address] MARIA VICTORIA@[facility] 06/29/2025 8:30 AM EST Office Visit [facility] Cardiovascular Medicine [address] [facility], 5th Floor, [address] [place] [address] Geronimo Thompson MD [address] [facility] [address] [place] [phone] GEORGINA@[email or web address] documented as of this encounter Visit Diagnoses Not on filedocumented in this encounter Additional Health Concerns Infection Onset Date Last Indicated Resolved Time CoV-Risk Comment:Per note documentation 03/28/2025 03/28/2025 9:57 AM EDT documented as of this encounter Care Teams Artist Relationship Manager Relationship Specialty Start Date End Date Carolina Madison MD [facility] [place] [address] PCP - General Internal Medicine 6/26/25 Aleshia Leonard MD [address] [place] [address] MARIA VICTORIA@[facility] Thoracic Surgery 01/26/25 Bryn Dominguez MD 19 [place] [address] [email or web address] Cardiology 02/25/25 Ivonne Chicas APRN 19 [place] [address] [email or web address] Nurse Practitioner 04/06/25 documented as of this encounter Additional Source Comments The information contained in this document represents components of the legal health record. It is not the complete legal health record.[facility]
--- OUTSIDE RECORDS SUMMARY | 2025-04-22 16:12 | XMS_ITS | Clinical Summary ---
Author Organization [facility] Address [address] [place] [address] Care Team Providers Care Ediphone Operator Name Role Phone Josias Rivers MD Primary Care Provider [phone] Source Comments PLEASE NOTE, if this patient [...] of Treatment Not on file Care Teams Ediphone Operator Relationship Specialty Start Date End Date Josias Rivers MD [address] [place] [phone] PCP - General Internal Medicine 04/26/15
--- OUTSIDE RECORDS SUMMARY | 2025-04-22 16:12 | XMS_ITS | Encounter Summary ---
Author Organization [facility] Address [address] [facility] [address] [place] [address] Phone Care Team Providers Care Hat Forming Machine Feeder Name Role Phone Carolina Madison MD Primary Care Provider [phone] Aleshia Leonard MD Unavailable [phone] Bryn Dominguez MD Unavailabl e Ivonne Chicas APRN Unavailable [phone] Encounter Details Date Type Department Care Team (Late st Contact Info) Description 12/22/2024 Procedure Pass [facility] Cardiology Referral Images [address] [place] [address] Social History Tobacco Use Types Packs/Day Years [...] (Late Contact Info) Description 04/05/2025 Procedure Pass [facility] for [facility] Care - CT [address] [facility], 6th [place] [address] 04/29/2025 1:30 PM EST Office Visit [facility] Cardiology [address] [place] [address] 05/04/2025 8:15 AM EST Appointment [facility] for Outpatient Care - CT [address] [facility], 6th [place] [address] Aleshia Leonard MD 55 [facility] [address] [place] [address] MARIA VICTORIA@[facility] 05/04/2025 9:00 AM EST Office Visit [facility] Division of Cardiac Surgery 55 [facility], 6th Floor, [address] [place] [address] Aleshia Leonard MD [address] [address] MARIA VICTORIA@[facility] 06/29/2025 8:30 AM EST Office Visit [facility] Cardiovascular Medicine [address] [facility], 5th Floor, [address] [place] [address] Geronimo Thompson MD [address] [phone] GEORGINA@[facility] documented as of this encounter Visit Diagnoses Not on filedocumented in this encounter Additional Health Concerns Infection Onset Date Last Indicated Resolved Time CoV-Risk Comment:Per note documentation 03/28/2025 03/28/2025 9:57 AM EDT documented as of this encounter Care Teams Hat Forming Machine Feeder Relationship Specialty Start Date End Date Carolina Madison MD [address] [place] [address] PCP - General Internal Medicine 12/10/24 Aleshia Leonard MD [address] [address] MARIA VICTORIA@[facility] Thoracic Surgery 01/26/25 Bryn Dominguez MD [address] [place] [address] Cardiology 02/25/25 Ivonne Chicas APRN [address] [place] [address] [email or web address] Nurse Practitioner 04/06/25 documented as of this encounter Additional Source Comments The information contained in this document represents components of the legal health record. It is not the complete legal health record.[facility]
--- OUTSIDE RECORDS SUMMARY | 2025-06-03 19:00 | XMS_ITS | Clinical Summary ---
Author Organization Unknown Care Team Providers Care Library Media Specialist Name Role Phone TIA BRAND, AREN Unavailable Unavailable JOSH BLACKBURN, CALEB Unavailable Unavailable DAVID OGDENN, IVAN Unavailable Unavail able JOSE PT, YURIDIA Unavailable Unavailable [facility], TRINITY Unavailable Unavailable [facility], NADE[place] Unavailable Unavailable Payers Payer Name Policy Type Policy Number Effective Date Expira tion Date MEDICARE.NGS.PDGM [id number] Problems Condition Name Condition Details Condition Category Status Onset Date Resolution Date Last Treatment Date Treating Clinician Comments ENCNTR FOR SURGICAL AFTCR FOLLOWING SURGERY ON THE CIRC SYS Active 2024-06 00:00: 00 PRESENCE OF PROSTHETIC HEART VALVE Active 2024-06 00:00: 00 UNSPECIFIED ATRIAL FIBRILLATION Active 2024-06 00:00: 00 ACUTE KIDNEY FAILURE, UNSPECIFIED Active 2024-06 00:00: 00 HYPERTENSIVE CHRONIC KIDNEY DISEASE W STG 1-4/UNSP CHR KDNY Active 2024-06 00:00: 00 CHRONIC KIDNEY DISEASE, STAGE 4 (SEVERE) Active 2024-06 00:00: 00 DEPRESSION, UNSPECIFIED Active 2024-06 00:00: 00 ANXIETY DISORDER, UNSPECIFIED Active 2024-06 00:00: 00 SLEEP APNEA, UNSPECIFIED Active 2024-06 00:00: 00 POSTPROCEDUR AL HYPOTHYROIDI SM Active 2024-06 00:00: 00 GASTRO-ESOPH AGEAL REFLUX DISEASE WITHOUT ESOPHAGITIS Active 2024-06 00:00: 00 [facility] (CURRENT) USE OF ASPIRIN Active 2024-06 00:00: 00 [facility] (CURRENT) USE OF ANTICOAGULAN TS Active 2024-06 00:00: 00 PERSONAL HISTORY OF NICOTINE DEPENDENCE Active 2024-06 00:00: 00 Allergies, Adverse Reactions, Alerts Allergy Name Allergy Type Status Severity Reaction(s) Onset Date Inactive Date Treating Clinician Comments NO KNOWN ALLERGIES Propensity to adverse reactions Active 2024-06 10:52: 03 Medications Ordered Medication Name Filled Medication Name Start Date Stop Date Current Medication? Ordering Clinician Indication Dosage Frequency Signature (SIG) Comments Components amlodipine 5 mg-valsarta n 160 mg tablet 2024-06 00:00: 00 04-06 00:00 :00 No [id number] Per instruc tions Per instructio ns (route: oral) Med Classific ation: Cardiovas cular Therapy Agents metoprolol succinate ER 25 mg tablet,exte nded release 24 hr 2024-06 00:00: 00 Yes [id number] BLOOD PRESSURE 1 tablet DAILY 1 tablet DAILY (route: oral) Med Classific ation: Cardiovas cular Therapy Agents warfarin 1 mg tablet 2024-06 00:00: 00 Yes [id number] BLOOD THINNER 1 tablet DAILY 1 tablet DAILY (route: oral) Med Classific ation: Hematolog ical Agents docusate sodium 100 mg capsule 2024-06 0 00:00: 00 Yes [id number] CONSTIPATIO N 1 capsule TWICE A DAY 1 capsule TWICE A DAY (route: oral) Med Classific ation: Gastroint estinal Therapy Agents amlodipine 10 mg-olmesart an 20 mg tablet 03-10 00:00: 00 04-06 00:00 :00 No [id number] Per instruc tions EVERY DAY Per instructio ns EVERY DAY (route: oral) Med Classific ation: Cardiovas cular Therapy Agents amiodarone 200 mg tablet 2024-06 00:00: 00 Yes [id number] BLOOD PRESSURE 1 tablet DAILY 1 tablet DAILY (route: oral) Med Classific ation: Cardiovas cular Therapy Agents aspirin 325 mg tablet 2024-06 00:00: 00 Yes [id number] ANTIPLATELE T 1 tablet DAILY 1 tablet DAILY (route: oral) Med Classific ation: Analgesic , Anti-infl ammatory or Antipyret ic citalopram 20 mg tablet 2024-06 00:00: 00 Yes [id number] DEPRESSION 1 tablet DAILY 1 tablet DAILY (route: oral) Med Classific ation: Central Nervous System Agents indapamide 1.25 mg tablet 2024-06 00:00: 00 Yes [id number] FLUID RETENTION 1 tablet 2 TIMES A WEEK 1 tablet 2 TIMES A WEEK (route: oral) Med Classific ation: Cardiovas cular Therapy Agents levothyroxi ne 75 mcg tablet 2024-06 00:00: 00 Yes [id number] HYPOTHYROID ISM 1 tablet DAILY 1 tablet DAILY (route: oral) Med Classific ation: Endocrine acetaminoph en 325 mg tablet 2024-06 00:00: 00 Yes [id number] PAIN 2 tablet EVERY 6 HOURS 2 tablet EVERY 6 HOURS (route: oral) Med Classific ation: Analgesic , Anti-infl ammatory or Antipyret ic Vital Signs Vital Name Observation Time Observation Value Commen ts Temperature 2025-04-20 06:49:00.000 97.3 [degF] Temperature 2025-04-14 06:44:00.000 97.3 [degF] Temperature 2025-04-08 12:14:00.000 98.6 [degF] Temperature 2025-04-06 12:33:00.000 98.1 [degF] BMI (%) 2025-04-06 12:12:47.000 29 kg/m2 Height 2025-04-06 12:12:41.000 62 [in_us] Pulse 2025-04-20 06:49:00.000 74 /min Pulse 2025-04-14 06:44:00.000 70 /min Pulse 2025-04-08 12:14:00.000 70 /min Pulse 2025-04-06 12:33:00.000 66 /min O2 Saturation (%) 2025-04-20 06:50:00.000 98 % O2 Saturation (%) 2025-04-14 06:44:00.000 97 % O2 Saturation (%) 2025-04-08 12:18:00.000 96 % O2 Saturation (%) 2025-04-06 12:33:00.000 98 % Respirations 2025-04-20 06:49:00.000 18 /min Respirations 2025-04-14 06:44:00.000 18 /min Respirations 2025-04-08 12:14:00.000 18 /min Respirations 2025-04-06 12:33:00.000 17 /min Weight (lbs) 2025-04-08 12:18:00.000 162.8 [lb_av] Weight (lbs) 2025-04-06 12:12:47.000 163 [lb_av] Systolic Blood Pressure 2025-04-20 06:49:00.000 144 mm [Hg] Systolic Blood Pressure 2025-04-14 06:44:00.000 124 mm [Hg] Systolic Blood Pressure 2025-04-08 12:14:00.000 148 mm [Hg] Systolic Blood Pressure 2025-04-06 12:33:00.000 124 mm [Hg] Diastolic Blood Pressure 2025-04-20 06:49:00.000 80 mm [Hg] Diastolic Blood Pressure 2025-04-14 06:44:00.000 70 mm [Hg] Diastolic Blood Pressure 2025-04-08 12:14:00.000 78 mm [Hg] Diastolic Blood Pressure 2025-04-06 12:33:00.000 78 mm [Hg] Plan of Treatment Planned Activity Planned Date Details Comments Future Scheduled Test RN TO OBSE RVE, ASSESS, EVALUATE, AND DEVELOP AN INDIVIDUALIZED PLAN OF CARE. AGENCY MAY ACCEPT ORDERS FROM CONSULTING PHYSICIANS. RN TO OBSERVE AND ASSESS, KNOWLEDGE MANAGER/INTERNAL COMBUSTION ENGINE ASSEMBLER TO OBSERVE FOR RISK FOR FALLS AND INSTRUCT IN FALL PREVENTION, HOME SAFETY, MEDICATION MANAGEMENT, INFECTION PREVENTION, AND NUTRITION MANAGEMENT. RN/KNOWLEDGE MANAGER/INTERNAL COMBUSTION ENGINE ASSEMBLER NURSE MAY PERFORM O2 SATURATION LEVEL ON ADMISSION AND PRN FOR RN TO ASSESS/KNOWLEDGE MANAGER TO OBSERVE PATIENT, WITH NOTIFICATION TO THE PHYSICIAN IF SATURATION IS 90% IN THE ABSENCE OF MORE SPECIFIC PARAMETERS FROM THE PHYSICIAN. AGENCY MAY PERFORM A RESUMPTION OF CARE VISIT FOLLOWING ANY HOSPITAL ADMISSION. RN/KNOWLEDGE MANAGER/INTERNAL COMBUSTION ENGINE ASSEMBLER TO MONITOR CO-MORBID CONDITIONS LISTED ON THE PLAN OF CARE AND ANY NEW CONDITIONS THAT PRESENT THEMSELVES DURING THIS EPISODE TO IDENTIFY CHANGES AND INTERVENE TO MINIMIZE COMPLICATIONS. [code = RN TO OBSERVE, ASSESS, EVALUATE, AND DEVELOP AN INDIVIDUALIZED PLAN OF CARE. AGENCY MAY ACCEPT ORDERS FROM CONSULTING PHYSICIANS. RN TO OBSERVE AND ASSESS, KNOWLEDGE MANAGER/INTERNAL COMBUSTION ENGINE ASSEMBLER TO OBSERVE FOR RISK FOR FALLS AND INSTRUCT IN FALL PREVENTION, HOME SAFETY, MEDICATION MANAGEMENT, INFECTION PREVENTION, AND NUTRITION MANAGEMENT. RN/KNOWLEDGE MANAGER/INTERNAL COMBUSTION ENGINE ASSEMBLER NURSE MAY PERFORM O2 SATURATION LEVEL ON ADMISSION AND PRN FOR RN TO ASSESS/KNOWLEDGE MANAGER TO OBSERVE PATIENT, WITH NOTIFICATION TO THE PHYSICIAN IF SATURATION IS 90% IN THE ABSENCE OF MORE SPECIFIC PARAMETERS FROM THE PHYSICIAN. AGENCY MAY PERFORM A RESUMPTION OF CARE VISIT FOLLOWING ANY HOSPITAL ADMISSION. RN/KNOWLEDGE MANAGER/INTERNAL COMBUSTION ENGINE ASSEMBLER TO MONITOR CO-MORBID CONDITIONS LISTED ON THE PLAN OF CARE AND ANY NEW CONDITIONS THAT PRESENT THEMSELVES DURING THIS EPISODE TO IDENTIFY CHANGES AND INTERVENE TO MINIMIZE COMPLICATIONS.] Future Scheduled Test RISK FOR H OSPITALIZATION; RN TO ASSESS/TEACH, INTERNAL COMBUSTION ENGINE ASSEMBLER/KNOWLEDGE MANAGER TO OBSERVE/TEACH PATIENT/CAREGIVER ON RISK FOR HOSPITALIZATION/EMERGENCY ROOM VISITS, TEACH SIGNS AND SYMPTOMS THAT PUT PATIENT AT RISK, WHEN TO NOTIFY NURSE/PHYSICIAN OF COMPLICATIONS/DECLINE, AND WHEN TO CALL 911. [code = RISK FOR HOSPITALIZATION; RN TO ASSESS/TEACH, INTERNAL COMBUSTION ENGINE ASSEMBLER/KNOWLEDGE MANAGER TO OBSERVE/TEACH PATIENT/CAREGIVER ON RISK FOR HOSPITALIZATION/EMERGENCY ROOM VISITS, TEACH SIGNS AND SYMPTOMS THAT PUT PATIENT AT RISK, WHEN TO NOTIFY NURSE/PHYSICIAN OF COMPLICATIONS/DECLINE, AND WHEN TO CALL 911.] Future Scheduled Test MEDICATION MANAGEMENT; RN/KNOWLEDGE MANAGER/INTERNAL COMBUSTION ENGINE ASSEMBLER TO REVIEW MEDICATIONS FOR INTERACTIONS, EFFECTIVENESS OF DRUG THERAPY, AND SIGNS/SYMPTOMS OF ADVERSE REACTIONS. MAY INSTRUCT AND REINFORCE MEDICATION TEACHING RELATED TO THE USE OF MEDICATIONS, DOSAGE, FREQUENCY, PURPOSE, SIDE EFFECTS, AND TO REPORT COMPLICATIONS. [code = MEDICATION MANAGEMENT; RN/KNOWLEDGE MANAGER/INTERNAL COMBUSTION ENGINE ASSEMBLER TO REVIEW MEDICATIONS FOR INTERACTIONS, EFFECTIVENESS OF DRUG THERAPY, AND SIGNS/SYMPTOMS OF ADVERSE REACTIONS. MAY INSTRUCT AND REINFORCE MEDICATION TEACHING RELATED TO THE USE OF MEDICATIONS, DOSAGE, FREQUENCY, PURPOSE, SIDE EFFECTS, AND TO REPORT COMPLICATIONS.] Future Scheduled Test ANTITHROMB OTIC MANAGEMENT; RN TO ASSESS AND TEACH, KNOWLEDGE MANAGER/INTERNAL COMBUSTION ENGINE ASSEMBLER TO OBSERVE/TEACH/MONITOR EFFECTIVENESS OF ANTITHROMBOTIC THERAPY. RN/KNOWLEDGE MANAGER/INTERNAL COMBUSTION ENGINE ASSEMBLER TO INSTRUCT ON SIGNS AND SYMPTOMS OF BLEEDING/ADVERSE REACTIONS TO REPORT TO PHYSICIAN. RN/KNOWLEDGE MANAGER/INTERNAL COMBUSTION ENGINE ASSEMBLER TO PERFORM PT/INR VIA VENIPUNCTURE OR COAGUCHECK ON 04/08/2025. RN/KNOWLEDGE MANAGER/INTERNAL COMBUSTION ENGINE ASSEMBLER TO FAX/CALL IN RESULTS TO [facility] TIMELY. [code = ANTITHROMBOTIC MANAGEMENT; RN TO ASSESS AND TEACH, KNOWLEDGE MANAGER/INTERNAL COMBUSTION ENGINE ASSEMBLER TO OBSERVE/TEACH/MONITOR EFFECTIVENESS OF ANTITHROMBOTIC THERAPY. RN/KNOWLEDGE MANAGER/INTERNAL COMBUSTION ENGINE ASSEMBLER TO INSTRUCT ON SIGNS AND SYMPTOMS OF BLEEDING/ADVERSE REACTIONS TO REPORT TO PHYSICIAN. RN/KNOWLEDGE MANAGER/INTERNAL COMBUSTION ENGINE ASSEMBLER TO PERFORM PT/INR VIA VENIPUNCTURE OR COAGUCHECK ON 04/08/2025. RN/KNOWLEDGE MANAGER/INTERNAL COMBUSTION ENGINE ASSEMBLER TO FAX/CALL IN RESULTS TO [facility] TIMELY.] Future Scheduled Test CARDIOVASC ULAR SYSTEM; RN TO ASSESS/TEACH, KNOWLEDGE MANAGER/INTERNAL COMBUSTION ENGINE ASSEMBLER TO OBSERVE/TEACH RELATED TO ALTERED CARDIOVASCULAR STATUS TO MINIMIZE COMPLICATIONS AND REDUCE HOSPITALIZATION. [code = CARDIOVASCULAR SYSTEM; RN TO ASSESS/TEACH, KNOWLEDGE MANAGER/INTERNAL COMBUSTION ENGINE ASSEMBLER TO OBSERVE/TEACH RELATED TO ALTERED CARDIOVASCULAR STATUS TO MINIMIZE COMPLICATIONS AND REDUCE HOSPITALIZATION.] Future Scheduled Test ARRHYTHMIA MANAGEMENT; RN TO ASSESS AND TEACH, KNOWLEDGE MANAGER/INTERNAL COMBUSTION ENGINE ASSEMBLER TO OBSERVE AND TEACH WARNING SIGNS AND SYMPTOMS TO AVOID HOSPITALIZATION. [code = ARRHYTHMIA MANAGEMENT; RN TO ASSESS AND TEACH, KNOWLEDGE MANAGER/INTERNAL COMBUSTION ENGINE ASSEMBLER TO OBSERVE AND TEACH WARNING SIGNS AND SYMPTOMS TO AVOID HOSPITALIZATION.] Future Scheduled Test RN TO ASSE SS/TEACH, KNOWLEDGE MANAGER/INTERNAL COMBUSTION ENGINE ASSEMBLER TO OBSERVE/TEACH SURGICAL AFTERCARE MANAGEMENT TO AVOID HOSPITALIZATION. [code = RN TO ASSESS/TEACH, KNOWLEDGE MANAGER/INTERNAL COMBUSTION ENGINE ASSEMBLER TO OBSERVE/TEACH SURGICAL AFTERCARE MANAGEMENT TO AVOID HOSPITALIZATION.] Future Scheduled Test PAIN MANAG EMENT; RN TO ASSESS AND TEACH, INTERNAL COMBUSTION ENGINE ASSEMBLER/KNOWLEDGE MANAGER TO OBSERVE AND TEACH AND PROVIDE EDUCATION ON PAIN MANAGEMENT TECHNIQUES. [code = PAIN MANAGEMENT; RN TO ASSESS AND TEACH, INTERNAL COMBUSTION ENGINE ASSEMBLER/KNOWLEDGE MANAGER TO OBSERVE AND TEACH AND PROVIDE EDUCATION ON PAIN MANAGEMENT TECHNIQUES.] Future Scheduled Test FALL REDUC TION MANAGEMENT; RN TO ASSESS AND OBSERVE, KNOWLEDGE MANAGER/INTERNAL COMBUSTION ENGINE ASSEMBLER TO OBSERVE FALL RISK FACTORS AND EDUCATE PATIENT/CAREGIVER ON STRATEGIES TO MINIMIZE THE RISK OF FALLING. [code = FALL REDUCTION MANAGEMENT; RN TO ASSESS AND OBSERVE, KNOWLEDGE MANAGER/INTERNAL COMBUSTION ENGINE ASSEMBLER TO OBSERVE FALL RISK FACTORS AND EDUCATE PATIENT/CAREGIVER ON STRATEGIES TO MINIMIZE THE RISK OF FALLING.] Future Scheduled Test SPEECH THE RAPIST TO EVALUATE FOR SWALLOWING DIFFICULTIES. [code = SPEECH THERAPIST TO EVALUATE FOR SWALLOWING DIFFICULTIES.] Goal Patient Goal - GET BACK TO [place]. Goal Provider Goal - A PLAN OF CARE WILL BE ESTABLISHED THAT MEETS THE PATIENT S NEEDS. PATIENT WILL DEMONSTRATE OXYGEN SATURATION WITHIN NORMAL LIMITS OR PATIENT S OPTIMAL LEVEL ESTABLISHED BY THE PHYSICIAN THROUGHOUT CARE. CHANGES TO CO-MORBID CONDITIONS AND ANY NEW CONDITIONS WILL BE IDENTIFIED AND REPORTED TO THE PHYSICIAN. Goal Provider Goal - PATIENT/CAREGIVER WILL VERBALIZE UNDERSTANDING OF SIGNS AND SYMPTOMS THAT PUT THE PATIENT AT RISK FOR HOSPITALIZATION /EMERGENCY ROOM VISITS, WHEN TO NOTIFY NURSE/PHYSICIAN OF COMPLICATIONS/DECLINE AND WHEN TO CALL 911. Goal Provider Goal - PATIENT/CAREGIVER TO VERBALIZE, AND CONSISTENTLY DEMONSTRATE EFFECTIVE, SAFE MANAGEMENT OF MEDICATION INCLUDING KNOWLEDGE OF EFFECTIVENESS, POTENTIAL SIDE EFFECTS AND DRUG REACTIONS AND WHEN TO CONTACT THE APPROPRIATE CARE PROVIDER. PATIENT/CAREGIVER WILL BE ABLE TO VERBALIZE UNDERSTANDING OF MEDICATION REGIMEN AND ACCURATELY TAKE MEDICATIONS PRESCRIBED WITHOUT ADVERSE EFFECTS BY END OF EPISODE. Goal Provider Goal - PATIENT / CAREGIVER WILL PROMPTLY REPORT SIGNS AND SYMPTOMS OF BLEEDING OR ADVERSE REACTIONS TO THE PHYSICIAN. PATIENT/CAREGIVER WILL VERBALIZE UNDERSTANDING OF ANTITHROMBOTIC THERAPY MANAGEMENT BY END OF EPISODE. Goal Provider Goal - PATIENT / CAREGIVER WILL VERBALIZE/DEMONSTRATE UNDERSTANDING OF MEASURES TO MANAGE ALTERED CARDIOVASCULAR STATUS BY END OF EPISODE. Goal Provider Goal - PATIENT / CAREGIVER WILL VERBALIZE/DEMONSTRATE AN ABILITY TO ADHERE TO SELF-MANAGEMENT OF HEART ARRHYTHMIA TO MINIMIZE COMPLICATIONS AND AVOID HOSPITALIZATION BY END OF EPISODE. Goal Provider Goal - PATIENT/CAREGIVER WILL VERBALIZE/DEMONSTRATE POSTOPERATIVE CARE TO MINIMIZE COMPLICATION AND AVOID HOSPITALIZATIONS BY THE END OF THE EPISODE. Goal Provider Goal - PATIENT / CAREGIVER WILL VERBALIZE / DEMONSTRATE UNDERSTANDING OF PAIN CONTROL MEASURES BY END OF EPISODE Goal Provider Goal - PATIENT/CAREGIVER WILL VERBALIZE/DEMONSTRATE UNDERSTANDING OF FALL RISK FACTORS AND IMPLEMENT STRATEGIES TO MINIMIZE FALL RISK. PATIENT/CAREGIVER WILL VERBALIZE/DEMONSTRATE AN ABILITY TO ADHERE TO FALL REDUCTION SELF-MANAGEMENT AND LIFE-STYLE CHANGES BY END OF EPISODE. Progress Notes Progress Notes <paragraph>[Visit Date: 2024 by VIRI PRESLEY LPN]:</paragraph><paragraph>ALERT AND ORIENTED AMBULATES WITHOUT DIFFICULTY VOIDING WITHOUT DIFFICULTY.APPETITE AND HYDRATION ADEQUATE DTR PRESENT DURING VISIT NO COMPLAINTS OF HEADACHE OR DIZZINESS VS STABLE.INR 2.4 NEXT INR TWO WEEKS NO CHANGE TO COUMADIN DOSING.ALL MEDS RECONCILED WITH DTR.PATIENT TO NOTIFY NURSING OF ANY HEALTH ISSUES. PATIENT EDUCATED ON ANTICOAG PRECAUTIONS</paragraph> Encounters Start Date/Time End Date/Time Encounter Type Admission Type Attending Rust Care Department Encounter ID Discharge Date Discharge Status Discharge Condition Discharge Reason Percent Goals Met 2025-04-06 00:00:00 2025-06-04 00:00:00 Outpatient NEW ADMISSION [facility] M[facility]ENO [facility] [id number]
--- OUTSIDE RECORDS SUMMARY | 2025-06-03 19:00 | XMS_ITS | Clinical Summary ---
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 Active 2024-06 00:00: 00 MCC (CURRENT) USE OF ANTICOAGULAN TS Active 2024-06 [...] 2024-06 00:00: 00 04-06 00:00 :00 No [id number] Per instruc tions Per instructio ns (route: oral) Med Classific ation: Cardiovas cular Therapy Agents metoprolol succinate ER 25 mg tablet,exte nded release 24 hr 2024-06 00:00: 00 Yes [id number] BLOOD PRESSURE 1 tablet DAILY 1 tablet DAILY (route: oral) Med Classific ation: Cardiovas cular Therapy Agents warfarin 1 mg tablet 2024-06 00:00: 00 Yes [id number] BLOOD THINNER 1 tablet DAILY 1 tablet DAILY (route: oral) Med Classific ation: Hematolog ical Agents docusate sodium 100 mg capsule 2024-06 0 00:00: 00 Yes [id number] CONSTIPATIO N 1 capsule TWICE A DAY 1 capsule TWICE A DAY (route: oral) Med Classific ation: Gastroint estinal Therapy Agents amlodipine 10 mg-olmesart an 20 mg tablet 03-10 00:00: 00 04-06 00:00 :00 No [id number] Per instruc tions EVERY DAY Per instructio ns EVERY DAY (route: oral) Med Classific ation: Cardiovas cular Therapy Agents amiodarone 200 mg tablet 2024-06 00:00: 00 Yes [id number] BLOOD PRESSURE 1 tablet DAILY 1 tablet DAILY (route: oral) Med Classific ation: Cardiovas cular Therapy Agents aspirin 325 mg tablet 2024-06 00:00: 00 Yes [id number] ANTIPLATELE T 1 tablet DAILY 1 tablet DAILY (route: oral) Med Classific ation: Analgesic , Anti-infl ammatory or Antipyret ic citalopram 20 mg tablet 2024-06 00:00: 00 Yes [id number] DEPRESSION 1 tablet DAILY 1 tablet DAILY (route: oral) Med Classific ation: Central Nervous System Agents indapamide 1.25 mg tablet 2024-06 00:00: 00 Yes [id number] FLUID RETENTION 1 tablet 2 TIMES A WEEK 1 tablet 2 TIMES A WEEK (route: oral) Med Classific ation: Cardiovas cular Therapy Agents levothyroxi ne 75 mcg tablet 2024-06 00:00: 00 Yes [id number] HYPOTHYROID ISM 1 tablet DAILY 1 tablet DAILY (route: oral) Med Classific ation: Endocrine acetaminoph en 325 mg tablet 2024-06 00:00: 00 Yes [id number] PAIN 2 tablet EVERY 6 HOURS 2 [...] CONSULTING PHYSICIANS. RN TO OBSERVE AND ASSESS, CUSTOMER LOYALTY REPRESENTATIVE/SCUDDING INSPECTOR TO OBSERVE FOR RISK FOR FALLS AND INSTRUCT IN FALL PREVENTION, HOME SAFETY, MEDICATION MANAGEMENT, INFECTION PREVENTION, AND NUTRITION MANAGEMENT. RN/CUSTOMER LOYALTY REPRESENTATIVE/SCUDDING INSPECTOR NURSE MAY PERFORM O2 SATURATION LEVEL ON ADMISSION AND PRN FOR RN TO ASSESS/CUSTOMER LOYALTY REPRESENTATIVE TO OBSERVE PATIENT, WITH NOTIFICATION TO THE PHYSICIAN IF SATURATION IS 90% IN THE ABSENCE OF MORE SPECIFIC PARAMETERS FROM THE PHYSICIAN. AGENCY MAY PERFORM A RESUMPTION OF CARE VISIT FOLLOWING ANY HOSPITAL ADMISSION. RN/CUSTOMER LOYALTY REPRESENTATIVE/SCUDDING INSPECTOR TO MONITOR CO-MORBID CONDITIONS LISTED ON THE PLAN OF CARE AND ANY NEW CONDITIONS THAT PRESENT THEMSELVES DURING THIS EPISODE TO IDENTIFY CHANGES AND INTERVENE TO MINIMIZE COMPLICATIONS. [code = RN TO OBSERVE, ASSESS, EVALUATE, AND DEVELOP AN INDIVIDUALIZED PLAN OF CARE. AGENCY MAY ACCEPT ORDERS FROM CONSULTING PHYSICIANS. RN TO OBSERVE AND ASSESS, CUSTOMER LOYALTY REPRESENTATIVE/SCUDDING INSPECTOR TO OBSERVE FOR RISK FOR FALLS AND INSTRUCT IN FALL PREVENTION, HOME SAFETY, MEDICATION MANAGEMENT, INFECTION PREVENTION, AND NUTRITION MANAGEMENT. RN/CUSTOMER LOYALTY REPRESENTATIVE/SCUDDING INSPECTOR NURSE MAY PERFORM O2 SATURATION LEVEL ON ADMISSION AND PRN FOR RN TO ASSESS/CUSTOMER LOYALTY REPRESENTATIVE TO OBSERVE PATIENT, WITH NOTIFICATION TO THE PHYSICIAN IF SATURATION IS 90% IN THE ABSENCE OF MORE SPECIFIC PARAMETERS FROM THE PHYSICIAN. AGENCY MAY PERFORM A RESUMPTION OF CARE VISIT FOLLOWING ANY HOSPITAL ADMISSION. RN/CUSTOMER LOYALTY REPRESENTATIVE/SCUDDING INSPECTOR TO MONITOR CO-MORBID CONDITIONS LISTED ON THE PLAN OF CARE AND ANY NEW CONDITIONS THAT PRESENT THEMSELVES DURING THIS EPISODE TO IDENTIFY CHANGES AND INTERVENE TO MINIMIZE COMPLICATIONS.] Future Scheduled Test RISK FOR H OSPITALIZATION; RN TO ASSESS/TEACH, SCUDDING INSPECTOR/CUSTOMER LOYALTY REPRESENTATIVE TO OBSERVE/TEACH PATIENT/CAREGIVER ON RISK FOR HOSPITALIZATION/EMERGENCY ROOM VISITS, TEACH SIGNS AND SYMPTOMS THAT PUT PATIENT AT RISK, WHEN TO NOTIFY NURSE/PHYSICIAN OF COMPLICATIONS/DECLINE, AND WHEN TO CALL 911. [code = RISK FOR HOSPITALIZATION; RN TO ASSESS/TEACH, SCUDDING INSPECTOR/CUSTOMER LOYALTY REPRESENTATIVE TO OBSERVE/TEACH PATIENT/CAREGIVER ON RISK FOR HOSPITALIZATION/EMERGENCY ROOM VISITS, TEACH SIGNS AND SYMPTOMS THAT PUT PATIENT AT RISK, WHEN TO NOTIFY NURSE/PHYSICIAN OF COMPLICATIONS/DECLINE, AND WHEN TO CALL 911.] Future Scheduled Test MEDICATION MANAGEMENT; RN/CUSTOMER LOYALTY REPRESENTATIVE/SCUDDING INSPECTOR TO REVIEW MEDICATIONS FOR INTERACTIONS, EFFECTIVENESS OF DRUG THERAPY, AND SIGNS/SYMPTOMS OF ADVERSE REACTIONS. MAY INSTRUCT AND REINFORCE MEDICATION TEACHING RELATED TO THE USE OF MEDICATIONS, DOSAGE, FREQUENCY, PURPOSE, SIDE EFFECTS, AND TO REPORT COMPLICATIONS. [code = MEDICATION MANAGEMENT; RN/CUSTOMER LOYALTY REPRESENTATIVE/SCUDDING INSPECTOR TO REVIEW MEDICATIONS FOR INTERACTIONS, EFFECTIVENESS OF DRUG THERAPY, AND SIGNS/SYMPTOMS OF ADVERSE REACTIONS. MAY INSTRUCT AND REINFORCE MEDICATION TEACHING RELATED TO THE USE OF MEDICATIONS, DOSAGE, FREQUENCY, PURPOSE, SIDE EFFECTS, AND TO REPORT COMPLICATIONS.] Future Scheduled Test ANTITHROMB OTIC MANAGEMENT; RN TO ASSESS AND TEACH, CUSTOMER LOYALTY REPRESENTATIVE/SCUDDING INSPECTOR TO OBSERVE/TEACH/MONITOR EFFECTIVENESS OF ANTITHROMBOTIC THERAPY. RN/CUSTOMER LOYALTY REPRESENTATIVE/SCUDDING INSPECTOR TO INSTRUCT ON SIGNS AND SYMPTOMS OF BLEEDING/ADVERSE REACTIONS TO REPORT TO PHYSICIAN. RN/CUSTOMER LOYALTY REPRESENTATIVE/SCUDDING INSPECTOR TO PERFORM PT/INR VIA VENIPUNCTURE OR COAGUCHECK ON 04/08/2025. RN/CUSTOMER LOYALTY REPRESENTATIVE/SCUDDING INSPECTOR TO FAX/CALL IN RESULTS TO [facility] CLINIC TIMELY. [code = ANTITHROMBOTIC MANAGEMENT; RN TO ASSESS AND TEACH, CUSTOMER LOYALTY REPRESENTATIVE/SCUDDING INSPECTOR TO OBSERVE/TEACH/MONITOR EFFECTIVENESS OF ANTITHROMBOTIC THERAPY. RN/CUSTOMER LOYALTY REPRESENTATIVE/SCUDDING INSPECTOR TO INSTRUCT ON SIGNS AND SYMPTOMS OF BLEEDING/ADVERSE REACTIONS TO REPORT TO PHYSICIAN. RN/CUSTOMER LOYALTY REPRESENTATIVE/SCUDDING INSPECTOR TO PERFORM PT/INR VIA VENIPUNCTURE OR COAGUCHECK ON 04/08/2025. RN/CUSTOMER LOYALTY REPRESENTATIVE/SCUDDING INSPECTOR TO FAX/CALL IN RESULTS TO COUMADIN CLINIC TIMELY.] Future Scheduled Test CARDIOVASC ULAR SYSTEM; RN TO ASSESS/TEACH, CUSTOMER LOYALTY REPRESENTATIVE/SCUDDING INSPECTOR TO OBSERVE/TEACH RELATED TO ALTERED CARDIOVASCULAR STATUS TO MINIMIZE COMPLICATIONS AND REDUCE HOSPITALIZATION. [code = CARDIOVASCULAR SYSTEM; RN TO ASSESS/TEACH, CUSTOMER LOYALTY REPRESENTATIVE/SCUDDING INSPECTOR TO OBSERVE/TEACH RELATED TO ALTERED CARDIOVASCULAR STATUS TO MINIMIZE COMPLICATIONS AND REDUCE HOSPITALIZATION.] Future Scheduled Test ARRHYTHMIA MANAGEMENT; RN TO ASSESS AND TEACH, CUSTOMER LOYALTY REPRESENTATIVE/SCUDDING INSPECTOR TO OBSERVE AND TEACH WARNING SIGNS AND SYMPTOMS TO AVOID HOSPITALIZATION. [code = ARRHYTHMIA MANAGEMENT; RN TO ASSESS AND TEACH, CUSTOMER LOYALTY REPRESENTATIVE/SCUDDING INSPECTOR TO OBSERVE AND TEACH WARNING SIGNS AND SYMPTOMS TO AVOID HOSPITALIZATION.] Future Scheduled Test RN TO ASSE SS/TEACH, CUSTOMER LOYALTY REPRESENTATIVE/SCUDDING INSPECTOR TO OBSERVE/TEACH SURGICAL AFTERCARE MANAGEMENT TO AVOID HOSPITALIZATION. [code = RN TO ASSESS/TEACH, CUSTOMER LOYALTY REPRESENTATIVE/SCUDDING INSPECTOR TO OBSERVE/TEACH SURGICAL AFTERCARE MANAGEMENT TO AVOID HOSPITALIZATION.] Future Scheduled Test PAIN MANAG EMENT; RN TO ASSESS AND TEACH, SCUDDING INSPECTOR/CUSTOMER LOYALTY REPRESENTATIVE TO OBSERVE AND TEACH AND PROVIDE EDUCATION ON PAIN MANAGEMENT TECHNIQUES. [code = PAIN MANAGEMENT; RN TO ASSESS AND TEACH, SCUDDING INSPECTOR/CUSTOMER LOYALTY REPRESENTATIVE TO OBSERVE AND TEACH AND PROVIDE EDUCATION ON PAIN MANAGEMENT TECHNIQUES.] Future Scheduled Test FALL REDUC TION MANAGEMENT; RN TO ASSESS AND OBSERVE, CUSTOMER LOYALTY REPRESENTATIVE/SCUDDING INSPECTOR TO OBSERVE FALL RISK FACTORS AND EDUCATE PATIENT/CAREGIVER ON STRATEGIES TO MINIMIZE THE RISK OF FALLING. [code = FALL REDUCTION MANAGEMENT; RN TO ASSESS AND OBSERVE, CUSTOMER LOYALTY REPRESENTATIVE/SCUDDING INSPECTOR TO OBSERVE FALL RISK FACTORS AND EDUCATE [...] End Date/Time Encounter Type Admission Type Attending [facility] Care Department Encounter ID Discharge Date Discharge Status Discharge Condition Discharge Reason Percent Goals Met 2025-04-06 00:00:00 2025-06-04 00:00:00 Outpatient NEW ADMISSION [facility] [id number] 29.41
== END 2025-04-22 13:17 | disposition home or self-care (01) ==
LOC: HO.LAB 13:16
PROVIDERS: Absent Provider Internal Medicine; PCP Internal Medicine; Visit Provider Internal Medicine Hypertension Specialist
DX: N18.4 Chronic kidney disease, stage 4 (severe) (principal)
CPT/HCPCS: 36415; 80048; 82728; 83540; 85027

== ENCOUNTER 2025-05-10 13:14 | Outpatient (AMB) | payer MEDICARE, SELFPAY ==
--- OUTSIDE RECORDS SUMMARY | 2025-05-07 15:10 | XMS_ITS | Encounter Summary ---
Author Organization [facility] Address [address] [place] [address] Phone Care Team Providers Care Crisis Counselor Name Role Phone Carolina Madison MD Primary Care Provider [phone] Aleshia Leonard MD Unavailable [phone] Bryn Dominguez MD Unavailabl e Ivonne Chicas APRN Unavailable [phone] Reason for Referral * MRI/CAT Scan - Closed Specialty Diagnoses / Procedures Referred By Seferino escobedo Referred To Contact Radiology Diagnoses Aneurysm of ascending aorta without rupture Procedures CT Angio Chest [place]lesh[place] [address] Phone: tel: fax: mailto:[email or web address] Referral ID Status Reason Start Date Expiration Date Visits Re quested Visits Authorized [id number] Closed 04/05/2025 1 1 Reason for Visit * MRI/CAT Scan - Closed Specialty Diagnoses / Procedures Referred By Seferino escobedo Referred To Contact Radiology Diagnoses Aneurysm of ascending aorta without rupture Procedures CT Angio Chest Aleshia Leonard MD [address] [place] [address] Phone: tel: fax: mailto:[email or web address] [email or web address] Referral ID Status Reason Start Date Expiration Date Visits Re quested Visits Authorized [id number] Closed 04/05/2025 1 1 Encounter Details Date Type Department Care Team (Latest Contact Info) Description 05/07/2025 3:10 PM EST - 05/07/2025 11:59 PM EST Hospital Encounter [facility] for [facility] Care - CT [address] [facility], 6th [place] [address] Aleshia Leonard MD [address] [place] [address] MARIA VICTORIA@[email or web address] Arrived Discharge Disposition: Home or Self Care Social History Tobacco Use Types Packs/Day Years Used Date Smoking Tobacco: Former Cigarettes 0.5 38 1 966 - 2003 Smokeless Tobacco: Never Comments:Quit 25 years ago [...] on file documented as of this encounter Medications at Time of Discharge acetaminophen (TYLENOL) 325 mg tablet Take 2 tablets (650 mg total) by mouth every 6 (six) hours as needed for pain (specific location in comments). 04/05/2025 amiodarone (PACERONE) 200 MG tablet Take 200 mg by mouth daily. aspirin 325 MG tablet Take 1 tablet (325 mg total) by mouth daily. 30 tablet 2 04/06/2025 cholecalciferol (VITAMIN D3) 400 unit tablet Take 400 Units by mouth daily. citalopram (CELEXA) 20 MG tablet Take 20 mg by mouth daily. cyanocobalamin, vitamin B-12, 100 MCG tablet Take 100 mcg by mouth daily. indapamide (LOZOL) 1.25 mg tablet Take 1.25 mg by mouth every morning. levothyroxine (SYNTHROID, LEVOTHROID) 75 MCG tablet Take 75 mcg by mouth every morning. Medication-Free Text Probiotic takes daily metoprolol succinate (TOPROL-XL) 25 MG 24 hr tablet Take 0.5 tablets (12.5 mg total) by mouth nightly at bedtime. 15 tablet 2 04/05/2025 polyethylene glycol (MIRALAX) 17 gram packet Take 17 g by mouth daily as needed for mild constipation. 15 packet 04/05/2025 warfarin (COUMADIN) 1 MG tablet Take 0.5-1 tablets (0.5-1 mg total) by mouth daily. Take daily as instructed by [facility] clinic 150 tablet 04/06/2025 documented as of this encounter Plan of Treatment Upcoming Encounters Date Type Department Care Team (Late st Contact Info) Description 05/11/2025 2:00 PM EST Office Visit [facility] Division of Cardiac Surgery [address] [facility], 6th Floor, [address] [place] [address] Aleshia Leonard MD 55 [facility] [address] [place] [address] MARIA VICTORIA@[email or web address] 05/27/2025 2:20 PM EST Office Visit [facility] Rheumatology [place] [address] [facility], 4th Floor, [address] [place] [address] Salvador Anaya MD 55 [facility] [address] [place] [phone] KRISTINA@[email or web address] [facility] 06/29/2025 8:30 AM EST Office Visit [facility] Cardiovascular Medicine [address] [facility], 5th Floor, [address] [place] [address] Geronimo Thompson MD 55 [facility] [address] [place] [phone] [email or web address] Pending Results Name Type Priority Associated Diagnoses Date /Time CT Angio Chest Imaging Routine Aneurysm of ascending aorta without rupture 05/07/2025 4:09 PM EST Scheduled Orders Name Type Priority Associated Diagnoses Orde r Schedule CT Angio Chest Imaging Routine Aneurysm of ascending aorta without rupture As Needed for 1 Occurrences starting 05/07/2025 until 05/07/2025 documented as of this encounter Visit Diagnoses Diagnosis Aneurysm of ascending aorta without rupture documented in this encounter Care Teams Crisis Counselor Relationship Specialty Start Date End Date Carolina Madison MD [address] [place] [address] PCP - General Internal Medicine 12/10/24 Aleshia Leonard MD [address] [place] [address] MARIA VICTORIA@[email or web address] Thoracic Surgery 01/26/25 Bryn Dominguez MD 19 [place] [address] [email or web address] Cardiology 02/25/25 Ivonne Chicas APRN 19 [place] [address] Nurse Practitioner 04/06/25 documented as of this encounter Additional Source Comments The information contained in this document represents components of the legal health record. It is not the complete legal health record.[facility]
--- NOTE | 2025-05-10 13:15 | HO.NEPHOV ---
Vital Signs 05/10/25 13:16 Height 5 ft 3.2 in Weight 163 lb BMI 28.7 BP 120/60 Blood Pressure Location Rt brachial Position Sitting Pulse 54 Pulse Source Pulse Oximeter Pulse Oximetry (%) 95 Oxygen Delivery Method Room Air Intake Visit Reasons: 1 month f/u w/ labs Strategic Partnership Specialist Required: No Accompanied by: Daughter Allergies No Known Allergies Allergy (Verified 05/10/25 13:17) Medication List - Last Reconciled 05/10/25 by Jb Jerez MD acetaminophen 500 mg PO Q4-6H PRN amiodarone 200 mg PO DAILY aspirin 325 mg PO DAILY citalopram 20 mg PO DAILY docusate sodium 100 mg PO BID indapamide 0.625 mg PO QAM levothyroxine 75 mcg PO DAILY mecobalamin (vitamin B12) PO metoprolol succinate ER 12.5 mg PO DAILY polyethylene glycol 3350 (Miralax) 17 grams PO DAILY PRN warfarin 1 mg PO DAILY HPI Comments Details: - The patient is a 79-year-old female presenting with chronic kidney disease. - Chronic kidney disease with creatinine 1.78 and kidney function 27% as of November. - Preparing for aortic valve replacement surgery on March 25. - History of hypertension and atrial fibrillation, on amiodarone and Xarelto. - Past surgeries: breast, back, thyroidectomy. - Breast cancer treated 14 years ago with surgery and medications. - History of melanoma. - Reports edema, especially with socks. - Medications: amlodipine, Olmesartan, citalopram, indapamide, levothyroxine, vitamin B12. 03/22/25 Overall feels better after lowering Amlodipine/Olmesartan Occasional lightheadedness when she stands- for the past month or so. No syncope No edema 04/14/25 - The patient is a 79-year-old female presenting for follow-up regarding Chronic Kidney Disease. - Chronic Kidney Disease: Recent creatinine level of 2.14 mg/dL. - Ascending Aortic Aneurysm: History of aneurysm with graft replacement surgery. - Aortic Insufficiency: Underwent bioprosthetic valve replacement on March 25. - Atrial Fibrillation: On Coumadin for anticoagulation. - Anemia: Hemoglobin decreased to 8.7 g/dL, received transfusion. 05/10/25 The patient is a 79 year old individual presenting for follow-up of chronic kidney disease. The patient's hemoglobin has recently improved from 8.7 to 10 g/dL without iron supplementation to date. The patient has chronic kidney disease with a recent creatinine that improved to 2.03 mg/dL, which is considered a stable baseline. The patient has a known diagnosis of aortic stenosis and is scheduled to see a cardiac surgeon for follow-up. A recently recommended CT scan with contrast by the cardiac surgeon was declined due to the risk of contrast-induced kidney injury. The patient reports no shortness of breath, no difficulty with urination, and no swelling. The patient's weight and blood pressure have been stable. The patient is planning to travel to [place] and will be away from June until approximately October or November. [facility] Medical History Anxiety Bradycardia CKD (chronic kidney disease) stage 4, GFR 15-29 ml/min Sleep apnea Aortic regurgitation GERD (gastroesophageal reflux disease) A-fib HTN (hypertension) Surgical History History of aortic valve replacement with bioprosthetic valve S/P ascending aortic aneurysm repair History of open heart surgery (~03/2025) Hx of thyroidectomy Hx of breast surgery History of back surgery Family History Father Hypertension Heart attack Mother No problems noted. Social History Household Members Other:: , lives in [place] for most of the year Housing: House Patient Tobacco Use Status: Former Tobacco user e-Cigarette/Vaping Use: Never Used service: No Current occupational status: retired Cognitive needs: No Hearing needs: No Vision needs: Yes Physical Exam Vital Signs: Last Vital Signs Pulse 54 05/10/25 13:16 BP 120/60 05/10/25 13:16 Pulse Ox 95 05/10/25 13:16 Oxygen Delivery Method Room Air 05/10/25 13:16 BMI result Body Mass Index 28.7 Comfortable Neck supple no JVD. Lungs entry equal no rales. Heart S1-S2 heard no gallop or rub. Abdomen soft nontender. Neuro alert awake oriented. No asterixis. Extremities no edema. Results Reviewed Nephrology Results: Hgb, (12.0-16.0) 10.0 g/dl L Δ 04/22/25 WBC, (4.8-10.8) 5.2 X10*3/uL 04/22/25 Plt Count, (160-400) 372 X10*3/uL Δ 04/22/25 Sodium, (135-145) 143 mmol/L 04/22/25 Potassium, (3.3-5.1) 3.7 mmol/L 04/22/25 Chloride, (96-108) 107 mmol/L 04/22/25 Carbon Dioxide, (22-29) 30 mmol/L H 04/22/25 BUN, (9-16) 26 mg/dL H 04/22/25 Creatinine, (0.5-1.4) 2.03 mg/dL H 04/22/25 Calcium, (8.4-10.2) 9.6 mg/dL Δ 04/22/25 Urine Protein, (Neg-Trace) Negative mg/dL 03/10/25 Urine Creatinine 90.77 mg/dL 03/10/25 Renal US 12/16/24 Assessment & Plan Assessment & Plan (1) HTN (hypertension): Code(s): I10 - Essential (primary) hypertension Category: Medical (2) CKD (chronic kidney disease) stage 4, GFR 15-29 ml/min: Code(s): N18.4 - Chronic kidney disease, stage 4 (severe) Category: Medical Plan 1. Chronic Kidney Disease Urinalysis did not reveal any significant blood or protein. No casts. Renal ultrasonogram in December 2024 was unremarkable. Both kidneys appeared normal. No hydronephrosis. 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 - Avoid NSAIDs like Aleve, Advil, and Motrin. 2. H/o Hypertension BP at goal 3. Anemia Post Op HCT improved Iron supplement PO Orders: Orders Complete Blood Count no Diff 6 Months N18.4 - Chronic kidney disease, stage 4 (severe) Basic Metabolic Panel 6 Months N18.4 - Chronic kidney disease, stage 4 (severe) Medications: New ferrous sulfate 300 mg (5 mL) PO DAILY 120 mL 3RF Changed From indapamide 1.25 mg PO QAM 30 tabs 1RF To indapamide 0.625 mg PO QAM Coding Level of Care Code Est Pt Level 4 (81506) Diagnoses HTN (hypertension) I10 CKD (chronic kidney disease) stage 4, GFR 15-29 ml/min N18.4
[2025-05-10 13:16] VITALS: BP 120/60; PULSE 54; O2SAT 95; BMI 28.7
--- OUTSIDE RECORDS SUMMARY | 2025-05-10 17:53 | XMS_ITS | Encounter Summary ---
Author Organization [facility] Address [address] [place] [address] Phone Care Team Providers Care Data Modeling Architect Name Role Phone Carolina Madison MD Primary Care Provider [phone] Aleshia Leonard MD Unavailable Bryn Dominguez MD Unavailabl e Ivonne Chicas APRN Unavailable [phone] Encounter Details Date Type Department Care Team (Late st Contact Info) Description 02/12/2025 Procedure Pass [facility] Cardiology Referral Images [address] [place] [address] Social History Tobacco Use Types Packs/Day Years [...] Description 05/11/2025 2:00 PM EST Office Visit [facility] Division of Cardiac Surgery [address] [facility], 6th Floor, [address] [place] [address] Aleshia Leonard MD [address] [facility] [address] [place] [address] MARIA [email or web address] SHAHLA 05/27/2025 2:20 PM EST Office Visit [facility] Rheumatology [place] [address] [facility], 4th Floor, [address] [place] [address] Salvador Anaya MD 55 [facility] [address] [place] [phone] KRISTINA@[email or web address] .[facility] 06/29/2025 8:30 AM EST Office Visit [facility] Cardiovascular Medicine [address] [facility], 5th Floor, [address] [place] [address] Geronimo Thompson MD 55 [facility] [address] [place] [phone] [email or web address]. [email or web address] documented as of this encounter Visit Diagnoses Not on filedocumented in this encounter Additional Health Concerns Infection Onset Date Last Indicated Resolved Time CoV-Risk Comment:Per note documentation 03/28/2025 03/28/2025 9:57 AM EDT documented as of this encounter Care Teams Data Modeling Architect Relationship Specialty Start Date End Date Carolina Madison MD [address] [place] [address] PCP - General Internal Medicine 12/10/24 Aleshia Leonard MD [address] [address] MARIA VICTORIA@[email or web address] Thoracic Surgery 01/26/25 Bryn Dominguez MD 19 [place] [address] Cardiology 02/25/25 Ivonne Chicas APRN 19 [place] [address] Nurse Practitioner 04/06/25 documented as of this encounter Additional Source Comments The information contained in this document represents components of the legal health record. It is not the complete legal health record.[facility]
--- OUTSIDE RECORDS SUMMARY | 2025-05-10 17:53 | XMS_ITS | Encounter Summary ---
Author Organization [facility] Address [address] [facility] [address] [place] [address] Phone Care Team Providers Care Net Web Application Developer Name Role Phone Carolina Madison MD Primary Care Provider [phone] Aleshia Leonard MD Unavailable Bryn Dominguez MD Unavailabl e Ivonne Chicas APRN Unavailable [phone] Encounter Details Date Type Department Care Team (Late st Contact Info) Description 02/09/[address] [facility] Endoscopy [address] [place] [address] Social History Tobacco Use Types [...] Description 05/11/2025 2:00 PM EST Office Visit [facility] Division of Cardiac Surgery [address] [facility], 6th Floor, [address] [place] [address] Aleshia Leonard MD 55 [facility] [address] [place] [address] MARIA [email or web address] SHAHLA 05/27/2025 2:20 PM EST Office Visit [facility] Rheumatology [place] [address] [facility], 4th Floor, [address] [place] [address] Salvador Anaya MD 55 [facility] [address] [place] [phone] KRISTINA@[email or web address] .[facility] 06/29/2025 8:30 AM EST Office Visit [facility] Cardiovascular Medicine [address] [facility], 5th Floor, [address] [place] [address] Geronimo Thompson MD [address] [facility] [address] [place] [phone] GEORGINA@[email or web address]. shahla documented as of this encounter Visit Diagnoses Not on filedocumented in this encounter Additional Health Concerns Infection Onset Date Last Indicated Resolved Time CoV-Risk Comment:Per note documentation 03/28/2025 03/28/2025 9:57 AM EDT documented as of this encounter Care Teams Net Web Application Developer Relationship Specialty Start Date End Date Carolina Madison MD [address] [place] [address] PCP - General Internal Medicine 12/10/24 Aleshia Leonard MD [address] [address] MARIA [email or web address] Thoracic Surgery 01/26/25 Bryn Dominguez MD 19 [place] [address] Cardiology 02/25/25 Ivonne Chcias APRN 19 [place] [address] Nurse Practitioner 04/06/25 documented as of this encounter Additional Source Comments The information contained in this document represents components of the legal health record. It is not the complete legal health record.[facility]
--- OUTSIDE RECORDS SUMMARY | 2025-05-10 17:53 | XMS_ITS | Encounter Summary ---
Author Organization [facility] Address [address] [facility] [address] [place] [address] Phone Care Team Providers Care Rv Mechanic Name Role Phone Carolina Madison MD Primary Care Provider [phone] Aleshia Leonard MD Unavailable [phone] Bryn Dominguez MD Unavailabl e Ivonne Chicas APRN Unavailable [phone] Encounter Details Date Type Department Care Team (Late st Contact Info) Description 01/19/2025 Procedure Pass [facility] Imaging - MRI, Main [place] [address] [place] [address] Social History Tobacco Use Types [...] Description 05/11/2025 2:00 PM EST Office Visit [facility] Division of Cardiac Surgery [address] [facility], 6th Floor, [address] [place] [address] Aleshia Leonard MD 55 [facility] 630 [place] [address] MARIA VICTORIA@[email or web address]. [email or web address] 05/27/2025 2:20 PM EST Office Visit [facility] Rheumatology [place] [address] [facility], 4th Floor, [address] [place] [address] Salvador Anaya MD [address] [facility] [address] [place] [phone] KRISTINA@[email or web address] 06/29/2025 8:30 AM EST Office Visit [facility] Cardiovascular Medicine [address] [facility], 5th Floor, [address] [place] [address] Geronimo Thompson MD 55 [facility] [address] [place] [phone] GEORGINA@[email or web address]. shahla documented as of this encounter Visit Diagnoses Not on filedocumented in this encounter Additional Health Concerns Infection Onset Date Last Indicated Resolved Time CoV-Risk Comment:Per note documentation 03/28/2025 03/28/2025 9:57 AM EDT documented as of this encounter Care Teams Rv Mechanic Relationship Specialty Start Date End Date Carolina Madison MD [address] [place] [address] PCP - General Internal Medicine 12/10/24 Aleshia Leonard MD [address] [facility] [address] [place] [address] MARIA VICTORIA@[email or web address] Thoracic Surgery 01/26/25 Bryn Dominguez MD 19 [place] [address] [email or web address] Cardiology 02/25/25 Ivonne Chicas APRN [address] [place] [address] [email or web address] Nurse Practitioner 04/06/25 documented as of this encounter Additional Source Comments The information contained in this document represents components of the legal health record. It is not the complete legal health record.[facility]
--- OUTSIDE RECORDS SUMMARY | 2025-05-10 17:53 | XMS_ITS | Encounter Summary ---
Author Organization [facility] Address [address] [facility] [address] [place] [address] Phone Care Team Providers Care Mainframe Architect Name Role Phone Carolina Madison MD Primary Care Provider [phone] Aleshia Leonard MD Unavailable [phone] Bryn Dominguez MD Unavailabl e LeaderIvonne APRN Unavailable [phone] Encounter Details Date Type Department Care Team (Late st Contact Info) Description 03/25/2025 Procedure Pass [facility] Cardiac US [address] [place] [address] Social History Tobacco Use Types Packs/Day Years [...] 8:00 AM EDT Debra Barnes RN * [place] Suicide Severity Rating Scale (Screener/Recent Self-Report) Question [...] Description 05/11/2025 2:00 PM EST Office Visit [facility] Division of Cardiac Surgery [address] [place] [address], 6th Floor, [address] [place] [address] Aleshia Leonard MD [address] [place] [address] [address] [place] [address] MARIA VICTORIA@[email or web address] SHAHLA 05/27/2025 2:20 PM EST Office Visit [facility] Rheumatology [place] [address] [facility], 4th Floor, [address] [place] [address] Salvador Anaya MD [address] [place] [address] [address] [place] [address] [email or web address] 06/29/2025 8:30 AM EST Office Visit [facility] Cardiovascular Medicine [address] [facility], 5th Floor, [address] [place] [address] Geronimo Thompson MD 55 [facility] [address] [place] [phone] GEORGINA@[email or web address]. shahla documented as of this encounter Visit Diagnoses Not on filedocumented in this encounter Additional Health Concerns Infection Onset Date Last Indicated Resolved Time CoV-Risk Comment:Per note documentation 03/28/2025 03/28/2025 9:57 AM EDT documented as of this encounter Care Teams Mainframe Architect Relationship Specialty Start Date End Date Carolina Madison MD [address] [place] [address] PCP - General Internal Medicine 12/10/24 Aleshia Leonard MD 55 [facility] [address] [place] [address] MARIA VICTORIA@[email or web address] Thoracic Surgery 01/26/25 Bryn Dominguez MD 19 [place] [address] [email or web address] Cardiology 02/25/25 Ivonne Chicas APRN 19 [place] [address] [email or web address] Nurse Practitioner 04/06/25 documented as of this encounter Additional Source Comments The information contained in this document represents components of the legal health record. It is not the complete legal health record.[facility]
--- OUTSIDE RECORDS SUMMARY | 2025-05-10 17:53 | XMS_ITS | Encounter Summary ---
Author Organization [facility] Address [address] [facility] [address] [place] [address] Phone Care Team Providers Care Melting Furnace Skimmer Name Role Phone Carolina Madison MD Primary Care Provider [phone] Aleshia Leonard MD Unavailable [phone] Bryn Dominguez MD Unavailabl e LeaderIvonne APRN Unavailable [phone] Encounter Details Date Type Department Care Team (Late st Contact Info) Description 03/25/2025 Procedure Pass [facility] PERIOPERATIVE DEPT [address] [place] [phone] Social History Tobacco Use Types Packs/Day Years [...] 8:00 AM EDT Debra Barnes RN * [place] Suicide Severity Rating Scale (Screener/Recent Self-Report) Question Answer Date of Assessment Author 1. Wish to be (Past 1 Month) No 03/28/2025 8:00 AM EDT Kaela Fagan RN 2. Non-Specific Active Suicidal Thoughts (Past 1 Month) No 03/28/2025 8:00 AM EDT Kaela Fagan RN 6. Suicidal Behavior (Lifetime) No 03/28/2025 8:00 AM EDT Kaela Fagan RN documented as of this encounter Plan of Treatment Upcoming Encounters Date Type Department Care Team (Late st Contact Info) Description 05/11/2025 2:00 PM EST Office Visit [facility] Division of Cardiac Surgery [address] [place] [address], 6th Floor, [address] [place] [address] Aleshia Leonard MD [address] [place] [address] [address] [place] [address] MARIA VICTORIA@[email or web address]. SHAHLA 05/27/2025 2:20 PM EST Office Visit [facility] Rheumatology [place] [address] [facility], 4th Floor, [address] [place] [address] Salvador Anaya MD [address] [place] [address] [address] [place] [address] [email or web address] 06/29/2025 8:30 AM EST Office Visit [facility] Cardiovascular Medicine [address] [facility], 5th Floor, [address] [place] [address] Geronimo Thompson MD [address] [facility] [address] [place] [phone] GEORGINA@[email or web address]. shahla documented as of this encounter Visit Diagnoses Not on filedocumented in this encounter Additional Health Concerns Infection Onset Date Last Indicated Resolved Time CoV-Risk Comment:Per note documentation 03/28/2025 03/28/2025 9:57 AM EDT documented as of this encounter Care Teams Melting Furnace Skimmer Relationship Specialty Start Date End Date Carolina Madison MD [facility] [place] [address] PCP - General Internal Medicine 12/10/24 Aleshia Leonard MD [address] [facility] [address] [place] [address] MARIA VICTORIA@[email or web address] Thoracic Surgery 01/26/25 Bryn Dominguez MD 19 [place] [address] [email or web address] Cardiology 02/25/25 Ivonne Chicas APRN 19 [place] [address] [email or web address] Nurse Practitioner 04/06/25 documented as of this encounter Additional Source Comments The information contained in this document represents components of the legal health record. It is not the complete legal health record.[facility]
--- OUTSIDE RECORDS SUMMARY | 2025-05-10 17:53 | XMS_ITS | Encounter Summary ---
Author Organization [facility] Address [address] [facility] [address] [place] [address] Phone Care Team Providers Care Senior Staff Specialized Employment Name Role Phone Carolina Madison MD Primary Care Provider [phone] Aleshia Leonard MD Unavailable [phone] Bryn Dominguez MD Unavailabl e LeaderIvonne APRN Unavailable [phone] Encounter Details Date Type Department Care Team (Late st Contact Info) Description 03/29/2025 Procedure Pass [facility] Cardiac US [address] [place] [address] Social History Tobacco Use Types Packs/Day Years [...] Description 05/11/2025 2:00 PM EST Office Visit [facility] Division of Cardiac Surgery [address] [place] [address], 6th Floor, [address] [place] [address] Aleshia Leonard MD 55 [facility] [address] [place] [address] MARIA VICTORIA@[email or web address] SHAHLA 05/27/2025 2:20 PM EST Office Visit [facility] Rheumatology [address], 4th Floor, [address] [place] [address] Salvador Anaya MD 55 [facility] [address] [place] [address] KRISTINA@[email or web address] 06/29/2025 8:30 AM EST Office Visit [facility] Cardiovascular Medicine [address] [facility], 5th Floor, [address] [place] [address] Geronimo Thompson MD [address] [facility] [address] [place] [phone] GEORGINA@[email or web address] documented as of this encounter Visit Diagnoses Not on filedocumented in this encounter Additional Health Concerns Infection Onset Date Last Indicated Resolved Time CoV-Risk Comment:Per note documentation 03/28/2025 03/28/2025 9:57 AM EDT documented as of this encounter Care Teams Senior Staff Specialized Employment Relationship Specialty Start Date End Date Carolina Madison MD [address] [place] [address] PCP - General Internal Medicine 12/10/24 Aleshia Leonard MD 55 [facility] [address] [place] [address] MARIA VICTORIA@[email or web address] Thoracic Surgery 01/26/25 Bryn Dominguez MD 19 [place] [address] [email or web address] [place] [place] Cardiology 02/25/25 Ivonne Chicas APRN 19 [place] [address] [email or web address] Nurse Practitioner 04/06/25 documented as of this encounter Additional Source Comments The information contained in this document represents components of the legal health record. It is not the complete legal health record.[facility]
--- OUTSIDE RECORDS SUMMARY | 2025-05-10 17:53 | XMS_ITS | Encounter Summary ---
Author Organization [facility] Address [address] [facility] [address] [place] [address] Phone Care Team Providers Care Crepe Maker Name Role Phone Carolina Madison MD Primary Care Provider [phone] Aleshia Leonard MD Unavailable [phone] Bryn Dominguez MD Unavailabl e LeaderIvonne APRN Unavailable [phone] Encounter Details Date Type Department Care Team (Late st Contact Info) Description 04/29/2025 Telephone [facility] Division of Cardiac Surgery [address] [facility], 6th Floor, [address] [place] [address] Aleshia Leonard MD 55 [facility] 630 [place] [address] MARIA VICTORIA@[facility] Social History Tobacco Use Types [...] Description 05/11/2025 2:00 PM EST Office Visit [facility] Division of Cardiac Surgery [address] [facility], 6th Floor, [address] [place] [address] Aleshia Leonard MD [address] [place] [address] MARIA VICTORIA@[email or web address] SHAHLA 05/27/2025 2:20 PM EST Office Visit [facility] Rheumatology [place] 55 [facility], 4th Floor, [address] [place] [address] Salvador Anaya MD 55 [facility] [address] [place] [address] KRISTINA@[facility] 06/29/2025 8:30 AM EST Office Visit [facility] Cardiovascular Medicine [address] [facility], 5th Floor, [address] [place] [address] Geronimo Thompson MD [address] [facility] [address] [place] [address] GEORGINA@[email or web address] du documented as of this encounter Visit Diagnoses Not on filedocumented in this encounter Care Teams Crepe Maker Relationship Specialty Start Date End Date Carolina Madison MD [address] [place] [address] PCP - General Internal Medicine 12/10/24 Aleshia Leonard MD [address] [facility] [address] [place] [address] MARIA VICTORIA@[facility] Thoracic Surgery 01/26/25 Bryn Dominguez MD 19 [place] [address] [email or web address] Cardiology 02/25/25 Ivonne Chicas APRN 19 [place] [address] Nurse Practitioner 04/06/25 documented as of this encounter Additional Source Comments The information contained in this document represents components of the legal health record. It is not the complete legal health record.[facility]
--- OUTSIDE RECORDS SUMMARY | 2025-05-10 17:53 | XMS_ITS | Encounter Summary ---
Author Organization [facility] Address [address] [facility] [address] [place] [address] Phone Care Team Providers Care Reservations Agent Name Role Phone Carolina Madison MD Primary Care Provider [phone] Aleshia Leonard MD Unavailable [phone] Bryn Dominguez MD Unavailabl e LeaderIvonne APRN Unavailable [phone] Encounter Details Date Type Department Care Team (Late st Contact Info) Description 04/05/2025 Procedure Pass [facility] [place] [address] [facility], 6th [place] [address] Social History Tobacco Use Types Packs/Day Years [...] Description 05/11/2025 2:00 PM EST Office Visit [facility] Division of Cardiac Surgery [address] [facility], 6th Floor, [address] [place] [address] Aleshia Leonard MD 55 [facility] [address] [place] [address] MARIA VICTORIA@[email or web address] SHAHLA 05/27/2025 2:20 PM EST Office Visit [facility] Rheumatology [place] 55 [facility], 4th Floor, [address] [place] [address] Salvador Anaya MD 55 [facility] [address] [place] [address] KRISTINA@[email or web address] 06/29/2025 8:30 AM EST Office Visit [facility] Cardiovascular Medicine [address] [facility], 5th Floor, [address] [place] [address] Geronimo Thompson MD 55 [facility] [address] [place] [phone] GEORGINA@[email or web address]. shahla documented as of this encounter Visit Diagnoses Not on filedocumented in this encounter Care Teams Reservations Agent Relationship Specialty Start Date End Date Carolina Madison MD [address] [place] [address] PCP - General Internal Medicine 12/10/24 Aleshia Leonard MD 55 [facility] [address] [place] [address] MARIA VICTORIA@[email or web address] Thoracic Surgery 01/26/25 Bryn Dominguez MD 19 [place] [address] [email or web address] Cardiology 02/25/25 Ivonne Chicas APRN 19 [place] [address] [email or web address] Nurse Practitioner 04/06/25 documented as of this encounter Additional Source Comments The information contained in this document represents components of the legal health record. It is not the complete legal health record.[facility]
--- OUTSIDE RECORDS SUMMARY | 2025-05-10 17:53 | XMS_ITS | Clinical Summary ---
Author Organization [facility] Address [address] [place] [address] Care Team Providers Care Department Store Manager Name Role Phone Nicolette Wilson DO Primary Care Provider [phone] Allergies No known active allergies Medications Medication [...] Mother Relation Name Status Comments Brother Father [place], CVD Maternal Cousin Breast Cance r Maternal [...] age to complete this topic Care Teams Department Store Manager Relationship Specialty Start Date End Date Nicolette Wilson DO PCP - General Family Medicine 07/16/17
--- OUTSIDE RECORDS SUMMARY | 2025-05-10 17:53 | XMS_ITS | Encounter Summary ---
Author Organization [facility] Address [address] [facility] [address] [place] [address] Phone Care Team Providers Care Specialist Wound Care Name Role Phone Carolina Madison MD Primary Care Provider [phone] Aleshia Leonard MD Unavailable [phone] Bryn Dominguez MD Unavailabl e Ivonne Chicas APRN Unavailable [phone] Encounter Details Date Type Department Care Team (Late st Contact Info) Description 01/19/2025 Procedure Pass [facility] - MRI, Main [place] [address] [place] [address] Social History Tobacco Use Types [...] 05/11/2025 2:00 PM EST Office Visit [facility] Division of Cardiac Surgery [address] [facility], 6th Floor, [address] [place] [address] Aleshia Leonard MD 55 [facility] 630 [place] [address] MARIA VICTORIA@[email or web address]. [email or web address] 05/27/2025 2:20 PM EST Office Visit [facility] Rheumatology [place] 55 [facility], 4th Floor, [address] [place] [address] Salvador Anaya MD 55 [facility] [address] [place] [phone] KRISTINA@[email or web address] 06/29/2025 8:30 AM EST Office Visit [facility] Cardiovascular Medicine 32 [facility], 5th Floor, [address] [place] [address] Geronimo Thompson MD 55 [facility] [address] [place] [address] GEORGINA@[email or web address]. [email or web address] documented as of this encounter Visit Diagnoses Not on filedocumented in this encounter Additional Health Concerns Infection Onset Date Last Indicated Resolved Time CoV-Risk Comment:Per note documentation 03/28/2025 03/28/2025 9:57 AM EDT documented as of this encounter Care Teams Specialist Wound Care Relationship Specialty Start Date End Date Carolina Madison MD [address] [place] [address] PCP - General Internal Medicine 12/10/24 Aleshia Leonard MD 55 [facility] 630 [place] [address] MARIA VICTORIA@[email or web address] Thoracic Surgery 01/26/25 Bryn Dominguez MD 19 [place] [address] Cardiology 02/25/25 Ivonne Chicas APRN [address] [place] [address] Nurse Practitioner 04/06/25 documented as of this encounter Additional Source Comments The information contained in this document represents components of the legal health record. It is not the complete legal health record.[facility]
--- OUTSIDE RECORDS SUMMARY | 2025-05-10 17:53 | XMS_ITS | Encounter Summary ---
Author Organization [facility] Address [address] [facility] [address] [place] [address] Phone Care Team Providers Care Sleeve Wheel Maker Name Role Phone Carolina Madison MD Primary Care Provider [phone] Aleshia Leonard MD Unavailable [phone] Bryn Dominguez MD Unavailabl e Ivonne Chicas APRN Unavailable [phone] Encounter Details Date Type Department Care Team (Late st Contact Info) Description 02/12/2025 Procedure Pass [facility] Cardiology Referral Images [address] [place] [address] Social History Tobacco Use Types Packs/Day Years [...] 05/11/2025 2:00 PM EST Office Visit [facility] Division of Cardiac Surgery 55 [facility], 6th Floor, [address] [place] [address] Aleshia Leonard MD 55 [facility] [address] [place] [address] MARIA VICTORIA@[email or web address] SHAHLA 05/27/2025 2:20 PM EST Office Visit [facility] Rheumatology [place] 55 [facility], 4th Floor, [address] [place] [address] Salvador Anaya MD 55 [facility] [address] [place] [address] KRISTINA@[email or web address] 06/29/2025 8:30 AM EST Office Visit [facility] Cardiovascular Medicine 32 [facility], 5th Floor, [address] [place] [address] Geronimo Thompson MD 55 [facility] [address] [place] [address] GEORGINA@[email or web address]. shahla documented as of this encounter Visit Diagnoses Not on filedocumented in this encounter Additional Health Concerns Infection Onset Date Last Indicated Resolved Time CoV-Risk Comment:Per note documentation 03/28/2025 03/28/2025 9:57 AM EDT documented as of this encounter Care Teams Sleeve Wheel Maker Relationship Specialty Start Date End Date Carolina Madison MD [address] [place] [address] PCP - General Internal Medicine 12/10/24 Aleshia Leonard MD [address] [address] MARIA VICTORIA@[email or web address] Thoracic Surgery 01/26/25 Bryn Dominguez MD 19 [place] [address] Cardiology 02/25/25 Ivonne Chicas APRN 19 [place] [address] Nurse Practitioner 04/06/25 documented as of this encounter Additional Source Comments The information contained in this document represents components of the legal health record. It is not the complete legal health record.[facility]
--- OUTSIDE RECORDS SUMMARY | 2025-05-10 17:54 | XMS_ITS | Encounter Summary ---
Author Organization [facility] Address [address] [place] [address] [place] [address] Phone Care Team Providers Care Shirring Machine Operator Automatic Name Role Phone Carolina Madison MD Primary Care Provider [phone] Aleshia Leonard MD Unavailable [phone] Bryn Dominguez MD Unavailabl e Ivonne Chicas APRN Unavailable [phone] Encounter Details Date Type Department Care Team (Late st Contact Info) Description 01/18/2025 Procedure Pass [facility] Cath/EP Lab [address] [place] [address] Social History Tobacco Use Types [...] [facility] [place] Division of Cardiac Surgery [address] [facility], 6th Floor, [address] [place] [address] Aleshia Leonard MD 55 [facility] 630 [place] [address] MARIA VICTORIA@[email or web address] SHAHLA 05/27/2025 2:20 PM EST Office Visit [facility] Rheumatology [place] 55 [facility], 4th Floor, [address] [place] [address] Salvador Anaya MD 55 [facility] [address] [place] [phone] KRISTINA@[facility] 06/29/2025 8:30 AM EST Office Visit [facility] Cardiovascular Medicine 32 [facility], 5th Floor, [address] [place] [address] Geronimo Thompson MD 55 [facility] [address] [place] [address] GEORGINA@[email or web address]. shahla documented as of this encounter Visit Diagnoses Not on filedocumented in this encounter Additional Health Concerns Infection Onset Date Last Indicated Resolved Time CoV-Risk Comment:Per note documentation 03/28/2025 03/28/2025 9:57 AM EDT documented as of this encounter Care Teams Shirring Machine Operator Automatic Relationship Specialty Start Date End Date Carolina Madison MD [address] [place] [address] PCP - General Internal Medicine 12/10/24 Aleshia Leonard MD 55 [facility] 630 [place] [address] MARIA VICTORIA@[facility] Thoracic Surgery 01/26/25 Bryn Dominguez MD 19 [place] [address] [email or web address] Cardiology 02/25/25 Ivonne Chicas APRN 19 [place] [address] [email or web address] Nurse Practitioner 04/06/25 documented as of this encounter Additional Source Comments The information contained in this document represents components of the legal health record. It is not the complete legal health record.[facility]
--- OUTSIDE RECORDS SUMMARY | 2025-05-10 17:54 | XMS_ITS | Clinical Summary ---
Author Organization 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
--- OUTSIDE RECORDS SUMMARY | 2025-05-10 17:54 | XMS_ITS | Encounter Summary ---
Author Organization [facility] Address [address] [facility] [address] [place] [address] Phone Care Team Providers Care Cattle Broker Name Role Phone Carolina Madison MD Primary Care Provider [phone] Aleshia Leonard MD Unavailable [phone] Bryn Dominguez MD Unavailabl e Ivonne Chicas APRN Unavailable [phone] Encounter Details Date Type Department Care Team (Late st Contact Info) Description 12/22/2024 Procedure Pass [facility] [place] Referral Images [address] [place], [place] [id number] Social History Tobacco Use Types Packs/Day Years [...] Description 05/11/2025 2:00 PM EST Office Visit [facility] Division of Cardiac Surgery [address] [place] [address], 6th Floor, [address] [place] [address] Aleshia Leonard MD [address] [facility] 630 [place] [address] MARIA VICTORIA@[email or web address] SHAHLA 05/27/2025 2:20 PM EST Office Visit [facility] [place]umatology [place] 55 [facility], 4th Floor, [address] [place] [address] Salvador Anaya MD 55 [facility] [address] [place] [phone] KRISTINA@[email or web address] 06/29/2025 8:30 AM EST Office Visit [facility] Cardiovascular Medicine 32 [facility], 5th Floor, [address] [place] [address] Geronimo Thompson MD 55 [facility] [address] [place] [address] GEORGINA@[email or web address]. shahla documented as of this encounter Visit Diagnoses Not on filedocumented in this encounter Additional Health Concerns Infection Onset Date Last Indicated Resolved Time CoV-Risk Comment:Per note documentation 03/28/2025 03/28/2025 9:57 AM EDT documented as of this encounter Care Teams Cattle Broker Relationship Specialty Start Date End Date Carolina Madison MD [address] [place] [address] PCP - General Internal Medicine 12/10/24 Aleshia Leonard MD [address] [facility] 630 [place] [address] MARIA VICTORIA@[email or web address] Thoracic Surgery 01/26/25 Bryn Dominguez MD 19 [place] [address] Cardiology 02/25/25 LeaderIvonne APRN 19 [place] [address] Nurse Practitioner 04/06/25 documented as of this encounter Additional Source Comments The information contained in this document represents components of the legal health record. It is not the complete legal health record.[facility]
--- OUTSIDE RECORDS SUMMARY | 2025-05-10 17:54 | XMS_ITS | Encounter Summary ---
Author Organization [facility] Address [address] [facility] [address] [place] [address] Phone Care Team Providers Care Neonatal Social Worker Name Role Phone Carolina Madison MD Primary Care Provider [phone] Aleshia Leonard MD Unavailable [phone] Bryn Dominguez MD Unavailabl e Ivonne Chicas APRN Unavailable [phone] Encounter Details Date Type Department Care Team (Late st Contact Info) Description 02/09/2025 Procedure Pass [facility] Cath/EP Lab [address] [place] [address] Social History Tobacco Use Types [...] [place] Division of Cardiac Surgery 55 [facility], 6th Floor, [address] [place] [address] Aleshia Leonard MD [address] [facility] 630 [place] [address] MARIA [email or web address] SHAHLA 05/27/2025 2:20 PM EST Office Visit [facility] Rheumatology [place] 55 [facility], 4th Floor, [address] [place] [address] Salvador Anaya MD 55 [facility] [address] [place] [phone] KRISTINA@[email or web address] 06/29/2025 8:30 AM EST Office Visit [facility] Cardiovascular Medicine 32 [facility], 5th Floor, [address] [place] [address] Geronimo Thompson MD 55 [facility] [address] [place] [phone] GEORGINA@[facility]. shahla documented as of this encounter Visit Diagnoses Not on filedocumented in this encounter Additional Health Concerns Infection Onset Date Last Indicated Resolved Time CoV-Risk Comment:Per note documentation 03/28/2025 03/28/2025 9:57 AM EDT documented as of this encounter Care Teams Neonatal Social Worker Relationship Specialty Start Date End Date Carolina Madison MD [address] [place] [address] PCP - General Internal Medicine 12/10/24 Aleshia Leonard MD [address] [address] MARIA VICTORIA@[facility] Thoracic Surgery 01/26/25 Bryn Dominguez MD 19 [place] [address] Cardiology 02/25/25 Ivonne Chicas APRN 19 [place] [address] Nurse Practitioner 04/06/25 documented as of this encounter Additional Source Comments The information contained in this document represents components of the legal health record. It is not the complete legal health record.[facility]
--- OUTSIDE RECORDS SUMMARY | 2025-05-10 17:54 | XMS_ITS | Encounter Summary ---
Author Organization [facility] Address [address] [facility] [address] [place] [address] Phone Care Team Providers Care Supervisor Plastering Name Role Phone Carolina Madison MD Primary Care Provider [phone] Aleshia Leonard MD Unavailable [phone] Bryn Dominguez MD Unavailabl e LeaderIvonne APRN Unavailable [phone] Encounter Details Date Type Department Care Team (Late st Contact Info) Description 12/22/2024 Telephone [facility] Division of Cardiac Surgery [address] [facility], 6th Floor, [address] [place] [address] Aleshia Leonard MD 55 [facility] 630 [place] [address] MARIA VICTORIA@[email or web address] Social History Tobacco Use Types Packs/Day [...] Description 05/11/2025 2:00 PM EST Office Visit [facility] Division of Cardiac Surgery [address] [facility], 6th Floor, [address] [place] [address] Aleshia Leonard MD 55 [facility] 630 [place] [address] MARIA VICTORIA@[email or web address] SHAHLA 05/27/2025 2:20 PM EST Office Visit [facility] Rheumatology [place] 55 [facility], 4th Floor, [address] [place] [address] Salvador Anaya MD 55 [facility] [address] [place] [phone] KRISTINA@[facility] .[facility] 06/29/2025 8:30 AM EST Office Visit [facility] Cardiovascular Medicine 32 [facility], 5th Floor, [address] [place] [address] Geronimo Thompson MD 55 [facility] [address] [place] [phone] GEORGINA@[facility]. shahla documented as of this encounter Visit Diagnoses Not on filedocumented in this encounter Additional Health Concerns Infection Onset Date Last Indicated Resolved Time CoV-Risk Comment:Per note documentation 03/28/2025 03/28/2025 9:57 AM EDT documented as of this encounter Care Teams Supervisor Plastering Relationship Specialty Start Date End Date Carolina Madison MD [address] [place], [place] [phone] PCP - General Internal Medicine 12/10/24 Aleshia Leonard MD 55 [facility] [address] [place] [address] MARIA VICTORIA@[facility] Thoracic Surgery 01/26/25 Bryn Dominguez MD [address] [place] [address] Cardiology 02/25/25 Ivonne Chicas APRN [address] [place] [address] Nurse Practitioner 04/06/25 documented as of this encounter Additional Source Comments The information contained in this document represents components of the legal health record. It is not the complete legal health record.[facility]
--- OUTSIDE RECORDS SUMMARY | 2025-05-10 17:55 | XMS_ITS | Clinical Summary ---
Author Organization [facility] Address [address] [place] [address] Phone Care Team Providers Care Customer Sales Specialist Name Role Phone Carolina Madison MD Primary Care Provider [phone] Aleshia Leonard MD Unavailable [phone] Bryn Dominguez MD Unavailabl e Ivonne Chicas APRN Unavailable [phone] Allergies Active Allergy Reactions Criticality Noted Date Comments Spice Flavor Throat Tightness Medium 02/16/2025 [place] Shortness Of Breath High 04/06/2025 Medications amiodarone [...] mouth nightly at bedtime. 15 tablet 2 5 Active polyethylene glycol (MIRALAX) 17 gram packet Take 17 g by mouth daily as needed for mild constipation. 15 packet Active warfarin (COUMADIN) 1 MG tablet Take 0.5-1 tablets (0.5-1 mg total) by mouth daily. Take daily as instructed by [facility] clinic 150 tablet Active cyanocobalamin, vitamin B-12, 100 MCG tablet Take 100 mcg by mouth daily. Active cholecalciferol (VITAMIN D3) 400 unit tablet Take 400 Units by mouth daily. Active Medication-Free Text Probiotic takes daily Active Active Problems Problem Noted Date Diagnosed Date FDC (current) use of anticoagulants 2024 Assessment & Plan (04/06/2025 12:18 PM EDT): Continue anticoagulation for atrial fibrillation On warfarin with INR Range 2.0-3.0 for 3 months per [facility] Cardio Surgery Dr Leonard (Started warfarin 03/26/25) Anticoagulation now managed by our office, [facility] [phone] Confirmed patient has 1 mg tablets at home. No warfarin refill prescription needed at this time and patient is aware to call our office when one is needed INR yesterday was therapeutic at 2.3. Take warfarin 1 mg /Sat Next INR due 04/08/25 INR standing orders entered in chart and will be faxed to the following labs: [facility] [address] [phone] FAX [phone] [facility] [phone] Confirmed phone #[phone] (dtr Dariuszun) to be used when calling with anticoag instructions. Added this keno writer's name to Care Team Encounter for [...] Aneurysm of ascending aorta without rupture 09/2024 Overview (04/28/2025): s/p AVR (21mm MagnaEase), ascending aorta replacement (26mm graft), LAAA and PFO closure with Dr. Leonard on 03/25/25 Atrial fibrillation 01/18/2025 Assessment & Plan (04/06/2025 12:13 PM EDT): Continue anticoagulation with warfarin INR goal 2.0-3.[address] Glez [facility] Cardiology Hypertensive disorder 01/18/2025 Severe aortic regurgitation 01/18/2025 Overview (04/28/2025): s/p AVR (21mm MagnaEase), ascending aorta replacement (26mm graft), LAAA and PFO closure with Dr. Leonard on 03/25/25 On amiodarone therapy 01/18/2025 Stage 4 chronic kidney disease 01/18/2025 Postoperative hypothyroidism 01/18/2025 Encounters Date Type Department Care Team Description 05/07/2025 3:10 PM EST - 05/07/2025 11:59 PM EST Hospital Encounter [facility] - [place] [address] [facility], 6th [place] [address] Aleshia Leonard MD Arrived Discharge Disposition: Home or Self Care 05/03/2025 Telephone [facility] [address] [place] [address] Leader, Ivonne London APRN Anticoagulation 04/29/2025 1:30 PM EST Office Visit [facility] Cardiology [address] [facility] [place] [address] Bryn Dominguez MD Miers, Cynthia Jane, NP Aneurysm of ascending aorta without rupture (Primary Dx); Hypertension, unspecified type; Severe aortic regurgitation 04/29/2025 Telephone [facility] [address] [facility] [address] Ivonne Chicas APRN Anticoagulation 04/29/2025 Telephone [facility] Division of Cardiac Surgery [address] [facility], 6th Floor, [address] [place] [address] Aleshia Leonard MD 04/28/2025 Telephone [facility] 19 [facility] [place] [address] Luanne Hernandez [facility] Established Patient 04/19/2025 Telephone [facility] [address] [facility] [place] [address] [facility] 04/13/2025 Telephone [facility] [address] [facility] [address] Leader, Ivonne London APRN Anticoagulation 04/08/2025 Telephone [facility] [address] [facility] [place] [address] Leader, Ivonne London APRN Anticoagulation 04/07/2025 Orders Only [facility] Division of Cardiac Surgery [address] [facility], 6th Floor, [address] [place] [address] Aleshia Leonard MD 04/07/2025 Transcribe Orders [facility] [address] [facility], 5th [place] [address] Carolina Madison MD Dysphagia, unspecified type (Primary Dx) 04/06/2025 10:00 AM EDT Telemedicine - audio only [facility] Cardiology [address] [phone] 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, 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 (Primary Dx); Atrial fibrillation, unspecified type; Encounter for education 04/05/2025 Procedure Pass [facility] - CT [address] [facility] [address], 6th [place] [address] 04/02/2025 Telephone [facility] [place] [address] Fallon Newberry RN 04/01/2025 8:25 AM EDT Ancillary Procedure [facility] Imaging Bedside Ultrasound VRT [address] [place] [address] Dayana Hodgson MD Kreso, Antonia, MD 03/29/2025 Procedure Pass [facility] Cardiac US [address] [place] [address] 03/28/2025 11:35 AM EDT Ancillary Procedure [facility] Imaging Bedside Ultrasound VRT [address] [place] [address] Juju Sibley CNP Kreso, Antonia, MD 03/25/2025 7:32 AM EDT Anesthesia Event [facility] PERIOPERATIVE DEPT [address] [place] [phone] Say Mayo MD Jan, Daniela Nowak MD, MPH 03/25/2025 7:30 AM EDT - 03/25/2025 6:42 PM EDT Surgery [facility] PERIOPERATIVE DEPT [address] [place] [phone] Aleshia Leonard MD ASCENDING AORTIC ANEURYSM GRAFT REPLACEMENT, PFO CLOSURE 03/25/2025 7:15 AM EDT Ancillary Procedure [facility] Imaging Bedside Ultrasound VRT [address] [place] [address] Say Mayo MD Kreso, Antonia, MD 03/25/2025 6:30 AM EDT Ancillary Procedure [facility] Imaging Bedside Ultrasound VRT [address] [place] [address] Say Mayo MD Kreso, Antonia, MD 03/25/2025 5:41 AM EDT - 04/05/2025 12:21 PM EDT Hospital Encounter [facility] Polk [address] [place] [address] Aleshia Leonard MD Discharge Disposition: Home-Health Care [facility] 03/25/2025 Procedure Pass [facility] Cardiac US [address] [place] [address] 03/25/2025 Procedure Pass [facility] PERIOPERATIVE DEPT [address] [place] [phone] 03/24/2025 Documentation [facility] Division of Cardiac Surgery [address] [facility], 6th Floor, [address] [place] [address] Shilpa Hummel RN 03/12/2025 3:49 PM EDT - 03/12/2025 11:59 PM EDT Hospital Encounter [facility] Imaging - Xrjax, Benitez 2 [address] [facility], 2nd [place] [address] Olivier Tate FNP Discharge Disposition: Home or Self Care 03/12/2025 3:29 PM EDT - 03/12/2025 3:48 PM EDT Hospital Encounter [facility] [address] [facility] [place] [address] Aleshia Leonard MD Discharge Disposition: Home or Self Care 03/12/2025 2:15 PM EDT - 03/12/2025 3:28 PM EDT Hospital Encounter [facility] Pulmonary and Critical Care Unit [address] [facility], 2nd Floor, [address] [place] [address] Aleshia Leonard MD Discharge Disposition: Home or Self Care 03/12/2025 1:00 PM EDT Pre-Admission Testing [facility] Division of Cardiac Surgery [address] [facility], 6th Floor, [address] [place] [address] Aleshia Leonard MD Preop cardiovascular exam (Primary Dx); Abnormal finding of blood chemistry, unspecified 03/12/2025 Orders Only [facility] EKG LAB VIRTUAL DEPARTMENT [address] [place] [address] Tasneem Cuevas Preop cardiovascular exam 03/08/2025 Orders Only [facility] Division of Cardiac Surgery [address] [facility], 6th Floor, [address] [place] [address] Olivier Tate FNP SOB (shortness of breath) (Primary Dx) 02/25/2025 Documentation [facility] Division of Cardiac Surgery [address] [facility], 6th Floor, [address] [place] [address] Olivier Tate FNP 02/22/2025 Telephone [facility] Division of Cardiac Surgery [address] [place] [address], 6th Floor, [address] [place] [address] Aleshia Leonard MD 02/17/2025 9:38 PM EDT - 02/17/2025 11:59 PM EDT Hospital Encounter [facility] Imaging - MRI, Main [place] [address] [place] [address] Bryn Dominguez MD Discharge Disposition: Home or Self Care 02/16/2025 1:45 PM EDT Office Visit [facility] Division of Cardiac Surgery [address] [facility], 6th Floor, [address] [place] [address] Aleshia Leonard MD Aneurysm of ascending aorta without rupture (Primary Dx) 02/12/2025 1:20 PM EDT Office Visit [facility] Cardiology Referral Images [address] [facility] [address] [place] [address] [place] Admitting, Provider 02/12/2025 1:15 PM EDT Office Visit [facility] Cardiology Referral Images [address] [facility] [address] [place] [address] [place] Admitting, Provider Diagnosis unknown 02/12/2025 1:10 PM EDT Office Visit [facility] Cardiology Referral Images [address] [facility] [address] [place] [address] [place] Admitting, Provider Diagnosis unknown 02/12/2025 Procedure Pass [facility] Cardiology Referral Images [address] [facility] [address] [place] [address] 02/12/2025 Procedure Pass [facility] Cardiology Referral Images [address] [facility] [address] [place] [address] 02/12/2025 Orders Only [facility] Cardiovascular Medicine [address] [facility], 5th Floor, [address] [place] [address] Unknown, Jose J, Diagnosis unknown (Primary Dx) 02/12/2025 Documentation [facility] Division of Cardiac Surgery [address] [facility], 6th Floor, [address] [place] [address] Olivier Tate FNP 02/10/2025 Ancillary Orders [facility] [address] [place] [address] Aleshia Leonard MD 02/09/2025 11:55 AM EDT - 02/09/2025 12:39 PM EDT Surgery [facility] Endoscopy [address] [place] [address] Anastacio Yuen MD TRANSESOPHAGEAL ECHOCARDIOGRAM 02/09/2025 11:39 AM EDT Anesthesia Event [facility] Endoscopy [address] [place] [address] Candido Pryor MD Allen, King Limon MD 02/09/2025 9:35 AM EDT - 02/09/2025 11:59 PM EDT Hospital Encounter [facility] Cath/EP Lab [address] [place] [address] Bryn Dominguez MD Discharge Disposition: Home or Self Care 02/09/2025 8:00 AM EDT - 02/09/2025 9:30 AM EDT Surgery [facility] Cath/EP Lab [address] [place] [address] Bryn Dominguez MD Right and Left Heart Catheterization with possible LVGRAM 02/09/2025 7:16 AM EDT - 02/09/2025 1:55 PM EDT Hospital Encounter [facility] Endoscopy [address] [place] [address] Bryn Dominguez MD Discharge Disposition: Home or Self Care 02/09/2025 Procedure Pass [facility] Endoscopy [address] [place] [address] 02/09/2025 Procedure Pass [facility] Cath/EP Lab [address] [place] [address] 01/19/2025 Procedure Pass [facility] [address] [place] [address] 01/19/2025 Procedure Pass [facility] [address] [place] [address] 01/18/2025 Procedure Pass [facility] Cath/EP Lab [address] [place] [address] from Last 3 Months Immunizations Immunization Administration [...] Sign Reading Time Taken Comments Blood Pressure 130/70 04/29/2025 1:09 PM EST Pulse 53 04/29/2025 1:09 PM EST Temperature 36.8 C (98.2 F) 04/05/2025 10:56 AM EDT Respiratory Rate 18 04/05/2025 10:56 AM EDT Oxygen Saturation 97% 04/29/2025 1:09 PM EST Inhaled Oxygen Concentration 50% 04/01/2025 1 :17 PM EDT Weight 72.6 kg (160 lb) 04/29/2025 1:09 PM EST Height 157.5 cm (5' 2 ) 04/29/2025 1:09 PM EST Body Mass Index 29.26 04/29/2025 1:09 PM EST Plan of Treatment Upcoming Encounters Date Type Department Care Team (Late st Contact Info) Description 05/11/2025 2:00 PM EST Office Visit [facility] Division of Cardiac Surgery [address] [facility], 6th Floor, [address] [place] [address] Aleshia Leonard MD 55 [facility] [address] [place] [address] MARIA [email or web address] 05/27/2025 2:20 PM EST Office Visit [facility] Rheumatology [place] [address] [facility], 4th Floor, [address] [place] [address] Salvador Anaya MD 55 [facility] [address] [place] [phone] [email or web address] 06/29/2025 8:30 AM EST Office Visit [facility] Cardiovascular Medicine [address] [facility], 5th Floor, [address] [place] [address] Geronimo Thompson MD 55 [facility] [address] [place] [phone] [email or web address] Health Maintenance Due Date Last Done Comments Adult Td,Tdap Booster 1945 DEPRESSION SCREENING 1957 HEPATITIS C SCREENING 09/04/1963 ZOSTER VACCINES (1 of 2) 09/04/1995 OSTEOPOROSIS SCREENING INITIAL (ONE-TIME) 2010 PNEUMOCOCCAL VACCINES (50+ years) (2 of 2 - PPSV23, PCV20, or PCV21) 11/16/2017 09/21/2017 RSV VACCINE (1 - 1-dose 75+ series) 2020 COVID-19 VACCINE (1 - 2024- season) 2025 BLOOD PRESSURE 10/27/2025 04/29/2025 LIPID PANEL 01/18/2026 01/18/2025 TSH LEVEL 01/18/2026 01/18/2025 ALT LEVEL (ALANINE AMINOTRANSFERASE) 04/02/2026 04/02/2025, 04/01/2025, 03/31/2025, Additional history exists POTASSIUM LEVEL 04/29/2026 04/29/2025, 03/18, 04/04/2025, Additional history exists INFLUENZA VACCINE Completed 04/05/2025, 06/06/2017 SMOKING STATUS SCREENING (Once After 26 Yrs) Completed 04/29/2025 HEPATITIS A VACCINES Aged Out No long [...] this topic Medical Devices Implanted Type Area Wool Mixer Device Identifier Shelf Expiration Date Model / Serial / Lot Valve Heart 21mm Perimount Magna Ease Bioprosthesis [place] Aortic Pericardial Thermafix - [id number] Implanted:Qty: 1 on 03/25/2025 by Aleshia Leonard MD at [facility] BONETISSUE N/A: Heart [employer] 11/27/2027 [id number] / [id number] / N/A Graft Vascular [id number] Vascutek Gelweave Polyester Woven Straight Aortic - [id number] Implanted:Qty: 1 on 03/25/2025 by Aleshia Leonard MD at [facility] SMDA N/A: Aorta [employer] 01/15/2028 [id number] / [id number] Device Clip 35mmatriclip Flex V Jamee Malleable Shaft Sterile - [id number] Implanted:Qty: 1 on 03/25/2025 by Aleshia Leonard MD at [facility] N/A: Heart [employer] 11/16/2027 [id number] / [id number] Procedures Procedure Name Priority Date/Time Associated Diagnosis Comments BASIC METABOLIC PANEL (BMP) Routine 04/17 2:23 PM EST Severe aortic regurgitation CBC Routine 04/29/2025 2:23 PM EST Severe aortic regurgitation PT-INR Routine 04/29/2025 2:23 PM EST 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 COMMENT Routine 03/31/2025 9:32 [...] A LINE Routine 03/25/2025 8:36 AM EDT WA INSERT/PLACE FLOW DIRECT CATH PERF Routine 03/25/2025 8:36 AM EDT WA ECHO HEART TRANSESOPH PRO BE PLACEMT PERF Routine 03/25/2025 8:36 AM EDT WA INSERT CATH ART PERCUT SHORTTERM PERF Routine 03/25/2025 8:35 AM EDT POCT HEPARIN DOSE RESPONSE Routine 03/25 7:55 AM EDT AIRWAY PLACEMENT Routine 03/25/2025 7:46 AM EDT POCT HEPARIN DOSE RESPONSE Routine 03/25 7:45 AM EDT BASIC METABOLIC PANEL (BMP) STAT 02/2025 7:42 AM EDT LACTATE (BLOOD GAS) STAT 03/25/2025 7:42 AM EDT ARTERIAL BLOOD GAS PLUS STAT 03/25/20 7:42 AM EDT WA VALVULOPLASTY AORTIC VALV E OPEN CARD BYP SIMPLE 03/25/2025 7:32 AM EDT Aortic valve insufficiency, etiology of cardiac valve disease unspecified Ascending aortic aneurysm, unspecified whether ruptured Atrial fibrillation, unspecified type Special Needs CPT Code(s):AscAoAneurysm Graft Replacement-- [id number]-- [id number] (Tissue)-- 75027 [place] EXCLUSION JAMEE OPEN TM STRNT/THRCM ANY METHOD 03/25/2025 7:32 AM EDT Aortic valve insufficiency, etiology of cardiac valve disease unspecified Ascending aortic aneurysm, unspecified whether ruptured Atrial fibrillation, unspecified type Special Needs CPT Code(s):AscAoAneurysm Graft Replacement-- [id number]-- [id number] (Tissue)-- 73000 [place] -AORT GRF W/CARD BYP F/AORTIC DS OTH/THN DSJ 03/25/2025 7:32 AM EDT Aortic valve insufficiency, etiology of cardiac valve disease unspecified Ascending aortic aneurysm, unspecified whether ruptured Atrial fibrillation, unspecified type Special Needs CPT Code(s):AscAoAneurysm Graft Replacement-- [id number]-- 48556MVE (Tissue)-- 12482 ANESTHESIA POINT OF CARE GAMALIEL GE CAPTURE [...] 02/09/2025 11:11 AM EDT Dysphagia, unspecified type WA ESOPHAGOGASTRODUODENOSCOP Y TRANSORAL DIAGNOSTIC 02/09/2025 11:11 AM [...] Recently Relevant to Health Maintenance Results * (ABNORMAL) PT-INR (04/29/2025 2:23 PM EST) Only the most recent of19 resultswithin the time period is included. PT 27.6(H) 11.5 - 14.2 sec 04/29/2025 2:59 PM [facility] INR 2.5(H) 0.9 - 1.1 04/29/2025 2:59 PM [facility] Comment:Therapeutic Range 2. 0 - 3.5 Blood 04/29/2025 2:23 PM EST 04/29/2025 2:40 PM EST us Ivonne Chicas APRN LAB BLOOD BKR ORDERABLES Fin al Result [address] [phone] * (ABNORMAL) CBC (04/29/2025 2:23 PM EST) Only the most recent of19 resultswithin the time period is included. WBC 6.05 4.00 - 11.00 K/uL 04/29/2025 2:56 PM [facility] RBC 3.45(L) 4.00 - 5.20 M/uL 04/29/2025 2:56 PM [facility] Hemoglobin 10.5(L) 12.0 - 16.0 g/dL 04/29/2025 2:56 PM [facility] Hematocrit 33.8(L) 36.0 - 46.0 % 04/29/2025 2:56 PM [facility] MCV 98.0 80.0 - 100.0 fL 04/29/2025 2:56 PM [facility] MCH 30.4 27.0 - 31.0 pg 04/29/2025 2:56 PM [facility] MCHC 31.1(L) 32.0 - 36.0 g/dL 04/29/2025 2:56 PM [facility] PLT 282 150 - 450 K/uL 04/29/2025 2:56 PM [facility] MPV 9.7 8.4 - 12.0 fL 04/29/2025 2:56 PM [facility] RDW-CV 14.6(H) 11.5 - 14.5 % 04/29/2025 2:56 PM [facility] Absolute NRBC 0.00 <=0.00 K cells/uL 04/29/2025 2:56 PM [facility] NRBC 0.0 <=0.0 /100 WBCs 04/29/2025 2:56 PM [facility] Blood (Blood) Venipuncture / Unknown 04/29/2025 2:23 PM EST 04/29/2025 2:41 PM EST Chelo Nuñez CORPORATE DEVELOPMENT OFFICER LAB BLOOD BKR ORDERABLES F inal Result [address] [phone] * (ABNORMAL) Basic Metabolic Panel (BMP) (04/29/2025 2:23 PM EST) Only the most recent of30 resultswithin the time period is included. Sodium 143 136 - 145 mmol/L 04/29/2025 3:17 PM [facility] Potassium 4.3 3.4 - 5.1 mmol/L 04/29/2025 3:17 PM [facility] Chloride 105 98 - 107 mmol/L 04/29/2025 3:17 PM [facility] CO2 28 20 - 31 mmol/L 04/29/2025 3:17 PM [facility] Anion Gap 10 3 - 17 mmol/L 04/29/2025 3:17 PM [facility] BUN 26(H) 6 - 23 mg/dL 04/29/2025 3:17 PM [facility] Creatinine 1.85(H) 0.50 - 1.00 mg/dL 04/29/2025 3:17 PM [facility] eGFR 27(L) >59 mL/min/1.7 3m2 04/29/2025 3:17 PM [facility] Comment:Estimated glomerular filtration rate calculated using the CKD-EPI refit equation. Glucose 93 70 - 99 mg/dL 04/29/2025 3:17 PM [facility] Calcium 9.5 8.5 - 10.5 mg/dL 04/29/2025 3:17 PM [facility] Blood (Blood) Venipuncture / Unknown 04/29/2025 2:23 PM EST 04/29/2025 2:41 PM EST us Chelo Nuñez CORPORATE DEVELOPMENT OFFICER LAB BLOOD BKR ORDERABLES F inal Result [address] [phone] * Prepare RBC, 1 Units (04/06/2025 12:37 AM EDT) Only the most recent of2 resultswithin the time period is included. Product Code [id number] 04/06/2025 12:37 AM EDT [facility] Unit Number [id number] 04/06/20 12:37 AM EDT [facility] Crossmatch Interpretation Compatible 04/04/2025 10:05 AM EDT [facility] Product Status Issued, Final 025 12:37 AM EDT [facility] ABO/Rh of Unit APOS 04/06/2025 12:37 AM EDT [facility] Expiration Date/Time [id number] 04/06/2025 12:37 AM EDT [facility] Unit Barcode [id number] 04/06/2025 12:37 AM EDT [facility] 03/12/2025 5:1 6 PM EDT us Khari Walker PA-C BLOOD BANK PRODUCT ORDE RABHORTENCIA Final Result [facility] [address] [place] [address] * POCT Glucose (04/05/2025 8:02 AM EDT) Only the most recent of41 resultswithin the time period is included. Glucose, POCT 104 70 - 110 mg/dL [facility] 04/05/2025 8:02 AM EDT 04/05/2025 8:04 AM EDT Aleshai Leonard MD POINT OF CARE TEST ORDERABLES F inal Result Performing Organization Address City/[facility] Co de Phone Number [address] [address] * Type and Screen (ABO,Rh,Antibody Screen) (04/05/2025 5:36 AM EDT) Only the most recent of4 resultswithin the time period is included. Expiration Date of Sample 04/08/2025 11:59 PM [facility] Antibody Screen Negative 04/05/2025 6:52 AM EDT [facility] Resulting Agency [facility] ABO A 04/05/2025 6:42 AM EDT [facility] Rh Positive 04/05/2025 6:42 AM EDT [facility] Blood 04/05/2025 5:36 AM EDT 04/05/2025 5:49 AM EDT Khari Walker PA-C LAB BLOOD BANK TEST ORD ERABLES Final Result Performing Organization Address [facility]/ZIP Co de Phone Number [address] [address] * Magnesium (04/05/2025 5:36 AM EDT) Only the most recent of29 resultswithin the time period is included. MAGNESIUM 2.4 1.7 - 2.4 mg/dL [facility] Blood 04/05/2025 5:36 AM EDT 04/05/2025 6:07 AM EDT Shanelle Mcmullen TURNER IN LAB BLOOD BKR ORDERABLES Final Result Performing Organization Address City/[facility]/ZIP Co de Phone Number [address] [address] * ECG 12-LEAD (04/05/2025 5:32 AM EDT) Only the most recent of13 resultswithin the time period is included. Systolic Blood Pressure 127 mmHg [facility] Diastolic Blood Pressure 58 mmHg [facility] Ventricular Rate EKG/MIN 63 BPM [facility] Atrial Rate 63 BPM [facility] [place] Interval 174 ms [facility] QRS Duration 88 ms [facility] QT Interval 370 ms [facility] QTC Interval 378 ms [facility] P [place] 57 degrees [facility] R Wave [place] 4 degrees [facility] T Wave [place] 69 degrees [facility] 04/05/2025 5:32 AM EDT [...] on 04/20/2025 5:17:57 PM us Nicolette Pike PIPE CHIPPER, DNP ECG ORDERABLES F inal Result Performing Organization Address City/[facility]/ZIP Co de Phone Number [facility] * Sodium, random urine (04/04/2025 6:29 PM EDT) URINE SODIUM 20 mmol/L [facility] Comment:Results must be inte rpreted based on patient context and with other clinical and laboratory data. Urine (Urine) 04/04/2025 6:2 9 PM EDT 04/04/2025 9:32 PM EDT us Khari Walker PA-C LAB URINE ORDERABLES Fi nal Result [facility] [address] [place] [address] * Osmolality, Random Urine (04/04/2025 6:29 PM EDT) URINE OSMOLALITY 326 150 - 1,150 mOsm/kg water [facility] Urine (Urine) 04/04/2025 6:2 9 PM EDT 04/04/2025 9:32 PM EDT us Khari Walker PA-C LAB URINE ORDERABLES Fi nal Result [facility] [address] [place] [address] * Transfuse RBC (04/04/2025 4:29 PM EDT) us Khari Walker PA-C NURSING TREATMENT ORDER TRENT - BLOOD ADMIN Final Result Performing Organization Address City/[facility]/ZIP Co de Phone Number [facility] * [...] be used to guide medication dosing. Negative [facility] 04/02/2025 4:33 AM EDT 04/02/2025 4:53 AM EDT us Nicolette Pike CNP, KUSUM LAB BLOOD ORDERAB LES Final Result Performing Organization Address [facility] Co de Phone Number [address] [address] * (ABNORMAL) LFTs (hepatic panel) (04/02/2025 12:34 AM EDT) Only the most recent of10 resultswithin the time period is included. ALBUMIN 3.2(L) 3.3 - 5.0 g/dL [facility] TOTAL BILIRUBIN 0.5 0.0 - 1.0 mg/dL [facility] DIRECT BILIRUBIN 0.2 0.0 - 0.3 mg/dL [facility] ALKALINE PHOSPHATASE 69 30 - 100 U/L [facility] AST 25 9 - 32 U/L [facility] ALT 13 7 - 33 U/L [facility] TOTAL PROTEIN 6.2 6.0 - 8.3 g/dL [facility] GLOBULIN 3.0 1.9 - 4.1 g/dL [facility] Blood 04/02/2025 12:3 4 AM EDT 04/02/2025 12:55 AM EDT us Nicolette Pike CNP, KUSUM LAB BLOOD BKR ORD ERABLES Final Result Performing Organization Address [facility] Co de Phone Number [address] [address] * PTT (04/02/2025 12:34 AM EDT) Only the most recent of12 resultswithin the time period is included. APTT 27.8 24.0 - 37.5 sec [facility] Comment:Check MAR for the ta rget range that is ordered for your patient. Blood 04/02/2025 12:3 4 AM EDT 04/02/2025 12:55 AM EDT Nicolette Pike CNP, KUSUM LAB BLOOD BKR ORD ERABLES Final Result Performing Organization Address City/[facility]/ZIP Co de Phone Number [address] [address] * Phosphorus (04/02/2025 12:34 AM EDT) Only the most recent of19 resultswithin the time period is included. PHOSPHORUS 3.6 2.6 - 4.5 mg/dL [facility] Blood 04/02/2025 12:3 4 AM EDT 04/02/2025 12:55 AM EDT Nicolette Pike CNP, KUSUM LAB BLOOD BKR ORD ERABLES Final Result Performing Organization Address [facility] Co de Phone Number [address] [address] * Lactate (04/02/2025 12:34 AM EDT) Only the most recent of3 resultswithin the time period is included. LACTIC ACID (MMOL/L) 0.9 0.5 - 2.0 mmol/L [facility] Blood 04/02/2025 12:3 4 AM EDT 04/02/2025 12:54 AM EDT us Nicolette Pike CNP, KUSUM LAB BLOOD BKR ORD ERABLES Final Result Performing Organization Address City/[facility] Co de Phone Number [address] [address] * XR Chest Portable (04/01/2025 10:13 PM [...] at bothbases. l il ral pleural effusions. [facility] CHEST Final Result * GLUCOSE (BLOOD GAS) (04/01/2025 12:48 PM EDT) Only the most recent of4 resultswithin the time period is included. Glucose, whole bld 106 70 - 110 mg/dL [facility] Blood 04/01/2025 12:4 8 PM EDT 04/01/2025 1:03 PM EDT Nicolette Pike PIPE CHIPPER, DNP LAB BLOOD BKR ORD ERABLES Final Result [facility] [address] [place] [address] * (ABNORMAL) POTASSIUM (BLOOD GAS) (04/01/2025 12:48 PM EDT) Only the most recent of4 resultswithin the time period is included. POTASSIUM 3.2(L) 3.5 - 5.0 mmol/L [facility] Blood 04/01/2025 12:4 8 PM EDT 04/01/2025 1:03 PM EDT Nicolette Pike PIPE CHIPPER, DNP LAB BLOOD BKR ORD ERABLES Final Result Performing Organization Address City/[facility] Co de Phone Number [address] [address] * Respiratory Pathogen PCR Panel (04/01/2025 11:43 AM EDT) Specimen Type NASOPHARYNGEAL SWAB [facility] Adenovirus Not Detected Not Detected [facility] Coronavirus, not SARS-CoV-2 Not Detected Not Detected [facility] Comment:This component of th e panel targets Coronavirus 229E, HKU1, NL63, and OC43 only. Human Metapneumovirus Not Detected Not Detected [facility] Influenza A Not Detected Not Detected [facility] Comment:This component of th e panel detects Influenza A and can differentiate among certain Influenza A subtypes including H1, H1-2009, H3, and a non-specified subtype. Influenza B Not Detected Not Detected [facility] Parainfluenza 1-4 Not Detected Not Detected [facility] Respiratory Syncytial Virus Not Detected Not Detected [facility] Human Rhinovirus/Entero virus Not Detected Not Detected [facility] Bordetella Parapertussis Not Detected Not Detected [facility] Bordetella Pertussis Presumptive: Not Detected Presumptiv e: Not Detected [facility] Chlamydia Pneumoniae Presumptive: Not Detected Presumptiv e: Not Detected [facility] Mycoplasma Pneumoniae Presumptive: Not Detected Presumptiv e: Not Detected [facility] Comment: Performance of this assay has not been established for specimens collected from individuals without signs or symptoms of respiratory infections. This test has De Michell authorization from the FDA for use by authorized laboratories. 04/01/2025 11:4 3 AM EDT 04/01/2025 11:43 AM EDT Aleshia Leonard MD LAB GENERAL ORDERABLES Final Re sult Performing Organization Address [facility] Co de Phone Number [address] [address] * Serology comment (04/01/2025 11:43 AM EDT) SEROLOGY COMMENT Test Added by MD/Care Unit on: [facility] Comment:04/01/25 BY KENTRELL MONTERROSO 04/01/2025 11:4 3 AM EDT 04/01/2025 11:43 AM EDT Aleshia Leonard MD LAB BLOOD ORDERABLES Final Resu lt Performing Organization Address [facility] Co de Phone Number [address] [address] * Microbiology Add On (04/01/2025 10:52 AM EDT) Only the most recent of2 resultswithin the time period is included. CONTACT INFORMATION [id number] [facility] TEST REQUESTED RESPIRATORY EXPANDED VIRAL PANEL [facility] Comments (Chemistry) ADD ON COMPLETE. [facility] Specimen Type RESPIRATORY NASOPHARYNGEAL SWAB [facility] Specimen Date/Time 03 29 25 05 [facility] 04/01/2025 10:5 2 AM EDT 04/01/2025 11:45 AM EDT Shanelle PFEIFFER LAB GENERAL ORDERABLES Final R esult Performing Organization Address [facility] Co de Phone Number [address] [address] * (ABNORMAL) Cystatin C (04/01/2025 9:00 AM EDT) Cystatin C 2.58(H) 0.61 - 0.95 mg/L [facility] eGFR (Cystatin C) 19(L) >59 mL/min/1. 73m2 [facility] Comment: Cystatin C-based eGFR may differ substantially from creatinine-based eGFR in patients with abnormal muscle mass or acutely changing renal function. Please interpret together with relevant clinical features. Blood 04/01/2025 9:00 AM EDT 04/01/2025 9:22 AM EDT us Shanelle Mcmullen TURNER IN LAB BLOOD BKR ORDERABLES Final Result [facility] [address] [place] [address] * Bedside Ultrasound (04/01/2025 8:20 AM EDT) [...] AM EDT) URINE UREA NITROGEN 123 mg/dL [facility] Urine (Urine) 04/01/2025 3:3 5 AM EDT 04/01/2025 3:54 AM EDT Aleshia Leonard MD LAB URINE ORDERABLES Final Resu lt Performing Organization Address [facility] Co de Phone Number [address] [address] * Creatinine, random urine (04/01/2025 3:35 AM EDT) URINE CREATININE 14 mg/dL [facility] Urine (Urine) 04/01/2025 3:3 5 AM EDT 04/01/2025 3:54 AM EDT Aleshia Leonard MD LAB URINE ORDERABLES Final Resu lt Performing Organization Address City/[facility] Co de Phone Number [address] [address] * Lactate (blood gas) (04/01/2025 2:42 AM EDT) Only the most recent of35 resultswithin the time period is included. Lactate, blood 1.1 0.5 - 2.0 mmol/L [facility] Blood 04/01/2025 2:42 AM EDT 04/01/2025 2:58 AM EDT Nicolette Pike PIPE CHIPPER, DNP LAB BLOOD BKR ORD ERABLES Final Result [address] [address] * (ABNORMAL) VENOUS BLOOD GAS PLUS (03/31/2025 11:56 PM EDT) Only the most recent of9 resultswithin the time period is included. FIO2 0.40/30LP M FIO2/L min [facility] PH 7.46(H) 7.30 - 7.40 [facility] PCO2 53(H) 38 - 50 mm[Hg] [facility] PO2 37 35 - 50 mm[Hg] [facility] Base Excess, unspecified 11.1(H) 0.0 - 3.0 mmol/L [facility] HCO3, unspecified 36(H) 24 - 30 mmol/L [facility] SODIUM 131(L) 135 - 145 mmol/L [facility] POTASSIUM 3.2(L) 3.5 - 5.0 mmol/L [facility] IONIZED CALCIUM 1.17 1.14 - 1.30 mmol/L [facility] Glucose, whole bld 245(H) 70 - 110 mg/dL [facility] HGB (BG) 8.2(L) 12.0 - 16.0 g/dl [facility] SO2-VENOUS (SO2, venous) 63.1 60.0 - 85.0 % [facility] Blood 03/31/2025 11:5 6 PM EDT 04/01/2025 12:02 AM EDT Aleshia Leonard MD LAB BLOOD ORDERABLES Final Resu lt Performing Organization Address City/[facility]/ZIP Co de Phone Number [address] [address] * (ABNORMAL) Ionized calcium (03/31/2025 11:56 PM EDT) IONIZED CALCIUM 1.12(L) 1.14 - 1.30 mmol/L [facility] Blood 03/31/2025 11:5 6 PM EDT 04/01/2025 12:02 AM EDT us Nicolette Pike CNP, KUSUM LAB BLOOD BKR ORD ERABLES Final Result Performing Organization Address [facility] Co de Phone Number [address] [address] * (ABNORMAL) Oxygen saturation, mixed venous (03/31/2025 9:24 AM EDT) Only the most recent of8 resultswithin the time period is included. SO2-MIXED (SO2, mixed bld) 59.9(L) 65.0 - 75.0 % [facility] Blood 03/31/2025 9:24 AM EDT 03/31/2025 9:50 AM EDT us Nicolette Pike CNP, KUSUM LAB BLOOD BKR ORD ERABLES Final Result Performing Organization Address [facility] Co de Phone Number [address] [address] * XR Chest Portable (03/30/2025 9:00 PM [...] an element of interventricular interdependence. us Aleshia Leonard MD CV ECHO ORDERABLES Final [...] reportoriginally created by TAYLOR WILLINGHAM. Juju Sibley PIPE CHIPPER CV US VASCULAR Final Result * US [...] reportoriginally created by TAYLOR WILLINGHAM. Juju Sibley [facility] US VASCULAR Final Result * (ABNORMAL) Arterial blood gas PLUS (03/30/2025 2:45 AM EDT) Only the most recent of32 resultswithin the time period is included. FIO2 0.65 FIO2/L min [facility] Comment:HFNC 50L PH 7.51(H) 7.35 - 7.45 [facility] PCO2 53(H) 35 - 42 mm[Hg] [facility] PO2 68(L) 80 - 100 mm[Hg] [facility] Base Excess, unspecified 16.4(H) 0.0 - 3.0 mmol/L [facility] HCO3, unspecified 41(H) 24 - 30 mmol/L [facility] SODIUM 139 135 - 145 mmol/L [facility] POTASSIUM 3.6 3.5 - 5.0 mmol/L [facility] IONIZED CALCIUM 1.00(L) 1.14 - 1.30 mmol/L [facility] Glucose, whole bld 121(H) 70 - 110 mg/dL [facility] HGB (BG) 8.3(L) 12.0 - 16.0 g/dl [facility] O2 Sat (SO2, arterial) 94.9 94.0 - 99.0 % [facility] Blood 03/30/2025 2:45 AM EDT 03/30/2025 2:50 AM EDT us Aleshia Leonard MD LAB BLOOD ORDERABLES Final Resu lt [address] [address] * XR Chest Portable (03/29/2025 9:10 PM [...] cardiac silhouette,and bilateral pleural effusions. Joelle Hoang PIPE CHIPPER IMG XR CHEST Final R esult * COVID Pandemic Respiratory Viral Order (PRO) (03/29/2025 5:16 AM EDT) Only the most recent of2 resultswithin the time period is included. Test Ordered Rapid COVID has been ordered [facility] SPECIMEN SOURCE/DESCRIPTIO N NASOPHARYNGEAL SWAB [facility] SARS-CoV 2 (COVID-19) PCR Negative Negative [facility] Comment: Negative results do not preclude SARS-CoV-2 [...] EDT 03/29/2025 8:54 AM EDT Minal Abraham PIPE CHIPPER LAB GENERAL ORDERABLES Final Res ult [address] [address] * XR Chest Portable (03/29/2025 4:27 AM [...] can not be ruled out. Minal Abraham PIPE CHIPPER IMG XR CHEST Final Result * XR [...] 3:35 PM EDT) Specimen Type NASOPHARYNGEAL SWAB [facility] Influenza A PCR NEGATIVE for INFLUENZA A NEGATIVE for INFLUENZA A [facility] Influenza B PCR NEGATIVE for INFLUENZA B NEGATIVE for INFLUENZA B [facility] RSV PCR NEGATIVE for RSV NEGATIVE for RSV [facility] Comment: This test has been authorized by the FDA under an Emergency Use Authorization (EUA) for use by authorized laboratories. 03/28/2025 3:35 PM EDT 03/28/2025 5:42 PM EDT Juju Sibley CNP LAB GENERAL ORDERABLES Final Result [facility] [address] [place] [address] * INSERT ARTERIAL LINE (03/28/2025 3:10 PM EDT) Narrative Juju Sibley CNP - 03/28/2025 3:10 PM EDT Juju Sibley CNP 03/28/2025 3:14 PM Arterial Line Date/Time: 03/28/2025 3:10 PM Performed by: Juju Sibley CNP Authorized by: Juju Sibley CNP [place] Protocol: Consent obtained: Yes Time out: Immediately [...] EDT) RBC 0-2 0 - 2 /hpf [facility] WBC <10 <10 /hpf [facility] Comment:0 to 2 WBC's per hpf 03/28/2025 7:41 AM EDT 03/28/2025 9:05 AM EDT Juju Sibley CNP URINE ORDERABLES Final Result [facility] [address] [place] [address] * (ABNORMAL) Urinalysis w/reflex Urine Culture (03/28/2025 7:41 AM EDT) COLOR COLORLESS(A ) Yellow [facility] CLARITY Clear Clear [facility] GLUCOSE Negative Negative [facility] BILI Negative Negative [facility] KETONES Negative Negative [facility] SPECIFIC GRAVITY 1.008 1.001 - 1.035 [facility] BLOOD 1+(A) Negative [facility] PH 5.0 5.0 - 9.0 [facility] Protein-UA Negative Negative [facility] UROBILINOGEN Negative Negative [facility] NITR[facility] Negative Negative [facility] Leukocyte esterase, ur Negative Negative [facility] Urine (Urine) 03/28/2025 7:4 1 AM EDT 03/28/2025 9:05 AM EDT Juju Sibley CNP LAB URINE ORDERABLES Final Re sult Performing Organization Address [facility] Co de Phone Number [address] [address] * MICROALBUMIN/CREATININE, RANDOM URINE (03/28/2025 7:41 AM EDT) MICROALB/CRE RATIO TOO LOW TO CALCULATE <30.0 mg/g Cre [facility] 03/28/2025 7:41 AM EDT 03/28/2025 9:05 AM EDT Juju Sibley CNP URINE ORDERABLES Final Result Performing Organization Address [facility] Co de Phone Number [address] [address] * TOTAL PROTEIN CREATININE RATIO, RANDOM URINE (03/28/2025 7:41 AM EDT) URINE TOTAL PROTEIN <4.0 0.0 - 13.5 mg/dL [facility] URINE CREATININE 25 mg/dL [facility] URINE TP CRE RATIO TOO LOW TO CALCULATE <0.15 [facility] Urine (Urine) 03/28/2025 7:4 1 AM EDT 03/28/2025 9:05 AM EDT Juju Sibley CNP LAB URINE ORDERABLES Final Re sult Performing Organization Address City/[facility]/ZIP Co de Phone Number [address] [address] * Heparin PF4 antibody (HIT) (03/28/2025 7:41 AM EDT) [facility] HIT IGG ANTIBODY Negative Negative [facility] Comment: This result [...] 4T's score). Heparin PF4 Antibody 0.00 U/mL [facility] Comment:Nighat ACOSTA, Jericho FMA, Marcia WATERS, Nikhil EDWARDS, Olivia I. High sensitivity and specificity of an automated IgG specific chemiluminescence immunoassay for diagnosis of HIT. Blood. 2017Mar 06 132(12):1345 to 1349. doi: 10.1182/blood 2018 04 [id number]. Epub 2017Jan 14. PMID: [id number] PMCID: [id number]. Blood 03/28/2025 7:41 AM EDT 03/28/2025 8:16 AM EDT Juju Sibley PIPE CHIPPER LAB BLOOD BKR ORDERABLES Jessica l Result Performing Organization Address City/[facility]/ZIP Co de Phone Number [facility] [address] [place] [address] * Microalbumin, Urine (03/28/2025 7:41 AM EDT) [facility] URINE MICROALBUMIN <0.2 0.0 - 2.0 mg/dL [facility] 03/28/2025 7:41 AM EDT 03/28/2025 9:05 AM EDT Juju Sibley PIPE CHIPPER LAB URINE ORDERABLES Final Re sult Performing Organization Address City/[facility]/ZIP Co de Phone Number [address] [address] * (ABNORMAL) SPEP PANEL (03/28/2025 7:41 AM EDT) Total Protein 4.8(L) 6.0 - 8.3 g/dL [facility] IMMUNOGLOBULIN G 669 614 - 1,295 mg/dL [facility] IgA 154 69 - 309 mg/dL [facility] IMMUNOGLOBULIN M 43(L) 53 - 334 mg/dL [facility] SPEP Normal pattern [facility] Comment: Normal SPEP: Normal pattern Performing Pathologist, Stan Ambriz M.D., Ph.D. [phone] Serum protein electrophoresis results should be evaluated in the context of separately reported serum free light chain levels and ratio when these additional results are available. Blood 03/28/2025 7:41 AM EDT 03/28/2025 8:06 AM EDT Juju Sibley CNP LAB BLOOD BKR ORDERABLES Jessica l Result Performing Organization Address [facility] Co de Phone Number [address] [address] * (ABNORMAL) Free light chains, serum (03/28/2025 7:41 AM EDT) FREE KAPPA LT CHAIN 39.0(H) 3.3 - 19.4 mg/L [facility] FREE LAMBDA LT CHAIN 33.7(H) 5.7 - 26.3 mg/L [facility] FREE KAPPA LAMBDA RAT 1.16 0.30 - 1.70 [facility] Blood 03/28/2025 7:41 AM EDT 03/28/2025 8:06 AM EDT Juju Sibley [facility] LAB BLOOD BKR ORDERABLES Jessica l Result Performing Organization Address City/[facility] Co de Phone Number [address] [address] * XR Chest Portable (03/27/2025 10:44 PM [...] (SO2, arterial) 92.9(L) 94.0 - 99.0 % [facility] Blood 03/26/2025 9:32 PM EDT 03/26/2025 9:35 PM EDT Nicolette Pike CNP, DNP LAB BLOOD BKR ORD ERABLES Final Result [facility] [address] [place] [address] * XR Chest Portable (03/26/2025 8:48 PM [...] included. FIBRINOGEN 286 200 - 400 mg/dL [facility] Blood 03/26/2025 3:10 AM EDT 03/26/2025 3:37 AM EDT us Nicolette Pike PIPE CHIPPER, DNP LAB BLOOD BKR ORD ERABLES Final Result [address] [address] * XR Chest Portable (03/26/2025 2:49 AM [...] report originally createdby Danica Junior. Nicolette Pike PIPE CHIPPER, DNP IMG XR CHEST F inal Result [...] report originallycreated by Jacquelyn Mcleod. Nicolette Pike PIPE CHIPPER, DNP IMG XR CHEST F inal Result * MRSA Nasal Screen (03/25/2025 1:45 PM EDT) Pathologist [facility] Special Requests No Special Requests 03/25/2025 1:45 PM EDT [facility] MRSA Nasal Culture NEGATIVE FOR MRSA 03/26/2025 2:03 PM EDT [facility] Other (Nasal) 03/25/2025 1:4 5 PM EDT 03/25/2025 5:18 PM EDT us Nicolette Pike CNP, KUSUM LAB MICROBIOLOGY CULTURE ORDERABLES Final Result Performing Organization Address [facility] Co de Phone Number [address] [address] * Vancomycin Resistant Enterococci (VRE), Rectal Screen (03/25/2025 1:45 PM EDT) Pathologist [facility] Special Requests No Special Requests 03/25/2025 1:45 PM EDT [facility] VRE Rectal Culture NEGATIVE FOR VRE 03/26/2025 2:16 PM EDT [facility] Stool (Stool swab) 03/25/2025 1:45 PM EDT 03/25/2025 5:20 PM EDT us Nicolette Pike CNP, KUSUM LAB MICROBIOLOGY CULTURE ORDERABLES Final Result Performing Organization Address [facility] de Phone Number [address] [address] * CB COMP PROBE PLACED BY PREMA W/ COLOR FLOW AND COMP DOPPLER (03/25/2025 1:23 PM EDT) Pathologist [facility] Body Surface Area 1.79 m2 [...] CARDIAC OR 103 90 - 130 sec [facility] 03/25/2025 12:3 9 PM EDT 03/25/2025 12:37 PM EDT Aleshia Leonard MD LAB POCT ENTER/EDIT ORDERABLES Final Result [address] [address] * POCT Heparin Protamine Titration (03/25/2025 12:39 PM EDT) Only the most recent of8 resultswithin the time period is included. Heparin Protamine Titration 0.0 u/ml [facility] Misc Test Ref Range 0.0-1.2 u/ml [facility] Comment (Coag) Red [facility] 03/25/2025 12:3 9 PM EDT 03/25/2025 12:37 PM EDT Aleshia Leonard MD POINT OF CARE TEST ORDERABLES F inal Result Performing Organization Address City/[facility] Co de Phone Number [address] [address] * (ABNORMAL) PUMP BLOOD GAS PLUS (03/25/2025 11:44 AM EDT) Only the most recent of6 resultswithin the time period is included. FIO2/FLOW CPB FIO2/L min [facility] TEMP. 37.0 deg C [facility] PH(UNCORRECTED) 7.43 [facility] PH 7.43 7.32 - 7.45 [facility] PCO2(UNCORRECTE D) 38 mm[Hg] [facility] PCO2 38 35 - 50 mm[Hg] [facility] PO2(UNCORRECTED ) 250 mm[Hg] [facility] PO2 250(H) 40 - 90 mm[Hg] [facility] Base Excess, unspecified 0.3 0.0 - 3.0 mmol/L [facility] HCO3, unspecified 25 24 - 30 mmol/L [facility] SODIUM 137 135 - 145 mmol/L [facility] POTASSIUM 5.1(H) 3.5 - 5.0 mmol/L [facility] HGB (BG) 7.6(L) 12.0 - 16.0 g/dl [facility] IONIZED CALCIUM 0.89(L) 1.14 - 1.30 mmol/L [facility] Glucose, whole bld 126(H) 70 - 110 mg/dL [facility] SO2, unspecified 99.6 94.0 - 99.9 % [facility] Comment: SO2 Reference Range: Arterial: 94.0-99.9 Venous: 60.0-85.0 Blood 03/25/2025 11:4 4 AM EDT 03/25/2025 11:49 AM EDT us Say Mayo MD LAB BLOOD ORDERABLES Final Result [address] [address] * Anatomic Pathology (Non-MGB) (03/25/2025 10:37 AM EDT) Report [address], [place] [address] Surgical Pathology Report Patient Name: ROSSY MITCHELL : 1945 (Age: 79) Sex: F Location: [place] [address] Institution: [facility] Date of Operation: 03/25/2025 Date of Reported: [...] Sectioning reveals a white, smooth cut surface. Pile Driving Nozzleman sections are submitted in A1-A2. Additional wireless sales representative sections are submitted in A3-A10 [...] cm aggregate of white-bautista rubbery tissue fragments. Pile Driving Nozzleman sections of each cusp to include the possible fused commissure are submitted in B1. Grossed by: Mimi Campos Immunohistochemical and in-situ hybridization tests performed at [facility] have been developed and their performance characteristics determined by the [facility] in the Department of Pathology at [facility]. They have not been cleared or approved by the U.S.Food and Drug Administration (FDA); the FDA has determined that such clearance or approval is not necessary. [facility] Clinical History Aortic regurgitation and ascending aortic aneurysm; atrial fibrillation [facility] Final Diagnosis A. AORTA EXCISION: AORTITIS Note: [...] Pastr[place]. B. AORTIC VALVE EXCISION: Myxomatous degeneration. [facility] Gross Description Received fresh in 2 parts, each labeled Rossy Mitchell and . A. Labeled aorta is a 6.5 x 6.0 x 1.4 cm aggregate of large caliber vessel fragments. The tunica externa is bautista-pink with minimal hemorrhage, and the tunica intima is white-bautista and smooth with minimal yellow plaque. Sectioning reveals a white, smooth cut surface. Pile Driving Nozzleman sections are submitted in A1-A2. Additional wireless sales representative sections are submitted in A3-A10 [...] cm aggregate of white-bautista rubbery tissue fragments. Pile Driving Nozzleman sections of each cusp to include the possible fused commissure are submitted in B1. [facility] Conversion Type (Aorta) 03/25/2025 10:37 AM EDT 03/25/2025 1:40 PM EDT Conversion Type (Heart Valve, [place] Aortic) 03/25/2025 10:37 AM EDT 03/25/2025 1:40 PM EDT Aleshia Leonard MD LAB PATHOLOGY ORDERABLES Edited Result - Final [address] [address] * WA INSERT/PLACE FLOW DIRECT CATH PERF, ANES DOUBLE LUMEN SHEATH - PA LINE, ANES VIP PLUS CATH - CENTRAL PA LINE (03/25/2025 8:36 AM EDT) Narrative Say Mayo MD - 03/25/2025 8:36 AM EDT Say Mayo MD 03/25/2025 8:36 AM Pulmonary Artery Line Placement Procedure Note: Start time: 03/25/2025 8:18 AM Anesthesiologist: Say Mayo MD Fellow/Resident/TENNIS RACKET REPAIRER: Daniela Motley MD, MPH Performed: fellow/resident/TENNIS RACKET REPAIRER [place] Protocol performed: consent obtained, patient identified with [...] 30 seconds? yes personal protection worn? yes permit review assistant followed standard precautions? yes sterile technique [...] flow Complications?: No us Say Mayo MD WA ANESTHESIA Final Resul t * WA ECHO HEART TRANSESOPH PROBE PLACEMT PERF (03/25/2025 8:36 AM EDT) Narrative Say Mayo MD - 03/25/2025 8:36 AM EDT Say Mayo MD 03/25/2025 8:36 AM Transesophageal Echocardiogram Procedure Note: Performed by: anesthesiologist Anesthesiologist: Say Mayo MD [place] Protocol performed: consent obtained, patient identified with 2 identifiers, correct procedure verified, correct site and laterality confirmed, verified equipment, coagulation status reviewed and implant history reviewed. Placement notes: probe advanced in esophagus atraumatic us Say Mayo MD WA ANESTHESIA Final Resul t * WA INSERT CATH ART PERCUT SHORTTERM PERF (03/25/2025 8:35 AM EDT) Say Macdonald MD - 03/25/2025 8:35 AM EDT Say Mayo MD 03/25/2025 9:20 AM Arterial Line Placement Procedure Note: Start Time 03/25/2025 7:22 AM: Location: pre-op Procedure performed by: fellow/resident/TENNIS RACKET REPAIRER Anesthesiologist: Say Mayo MD Fellow/Resident/TENNIS RACKET REPAIRER: Daniela Motley MD, MPH Indication(s): hemodynamic monitoring, arterial blood gas and frequent labs [place] Protocol performed: consent obtained, patient identified with [...] Transducer type: regular us Say Mayo MD [place] ANESTHESIA Edited Resu lt - Final * POCT heparin dose response (03/25/2025 7:55 AM EDT) Only the most recent of2 resultswithin the time period is included. ACT FROM CARDIAC OR 126 90 - 130 sec [facility] Projected heparin concentration 4.6 u/ml [facility] Heparin dose response 71 50 - 120 sec [facility] 03/25/2025 7:55 AM EDT 03/25/2025 8:00 AM EDT Aleshia Leonard MD POINT OF CARE TEST ORDERABLES F inal Result [address] [address] * ANES ETT DOUBLE LUMEN - AIRWAY LDA (03/25/2025 7:46 AM EDT) Narrative Say Mayo MD - 03/25/2025 7:46 AM EDT Say Mayo MD 03/25/2025 8:36 AM Airway Placement Procedure Note: Patient was not difficult to intubate. Procedure performed by: fellow/resident/TENNIS RACKET REPAIRER Anesthesiologist: Say Mayo MD Fellow/Resident/TENNIS RACKET REPAIRER: Daniela Motley MD, MPH Airway procedure initiated [...] tongue in neutral position. Say Mayo MD [place] ANESTHESIA Final Resul t * ANESTHESIA POINT OF CARE IMAGE CAPTURE (03/25/2025 7:13 AM EDT) Anatomical Region Laterality Modality Ultrasound Narrative 03/25/2025 7:13 AM EDT Daniela Motley MD, MPH 03/25/2025 7:13 AM Anesthesia Point of Care Image Capture Performed by: Say Mayo MD Authorized by: Say Mayo MD Accession Number: [id number] Say Mayo MD IMG POINT OF CARE EXAMS Fin al Result * ANESTHESIA POINT OF CARE IMAGE CAPTURE (03/25/2025 6:28 AM EDT) Anatomical Region Laterality Modality Ultrasound Narrative 03/25/2025 6:28 AM EDT Daniela Motley MD, MPH 03/25/2025 6:28 AM Anesthesia Point of Care Image Capture Performed by: Daniela Motley MD, MPH Authorized by: Say Mayo MD Accession Number: [id number] Say Mayo MD IMG POINT OF CARE [...] edited the report originally created by Mayank iFgueroa. Narrative 03/12/2025 4:17 PM EDT XR CHEST [...] S.aureus) NEGATIVE FOR MRSA (Methicillin Resistant S.aureus) [facility] MSSA PCR SCREEN NEGATIVE FOR MSSA (Methicillin Susceptible S.aureus) NEGATIVE FOR MSSA (Methicillin Susceptible S.aureus) [facility] Comment:This test was conduc rafael as part of Pre-Operative Screening for Staphylococcus aureus. Please direct any questions regarding this result to the Ordering Provider. Nasal (Nasal) 03/12/2025 3:4 6 PM EDT 03/12/2025 5:47 PM EDT Olivier PFEIFFER LAB GENERAL ORDERABLES Final Result [address] [address] * (ABNORMAL) Comprehensive metabolic panel (03/12/2025 3:46 PM EDT) SODIUM 142 135 - 145 mmol/L [facility] POTASSIUM 4.6 3.4 - 5.0 mmol/L [facility] CHLORIDE 105 98 - 108 mmol/L [facility] CO2 25 23 - 32 mmol/L [facility] BUN 30(H) 8 - 25 mg/dL [facility] CREATININE 2.01(H) 0.50 - 1.00 mg/dL [facility] GLUCOSE 86 70 - 110 mg/dL [facility] ALBUMIN 4.0 3.3 - 5.0 g/dL [facility] TOTAL PROTEIN 6.8 6.0 - 8.3 g/dL [facility] CALCIUM 9.4 8.5 - 10.5 mg/dL [facility] ALKALINE PHOSPHATASE 46 30 - 100 U/L [facility] TOTAL BILIRUBIN 0.4 0.0 - 1.0 mg/dL [facility] AST 16 9 - 32 U/L [facility] ALT 13 7 - 33 U/L [facility] GLOBULIN 2.8 1.9 - 4.1 g/dL [facility] EGFR 25(L) >59 mL/min/1. 73m2 [facility] Comment:Estimated glomerular filtration rate calculated using the CKD-EPI refit equation. ANION GAP 12 3 - 17 mmol/L [facility] 03/12/2025 3:46 PM EDT 03/12/2025 5:50 PM EDT us Olivier Tate TURNER IN LAB BLOOD BKR ORDERABLES Jessica l Result Performing Organization Address City/[facility]/ZIP Co de Phone Number [address] [address] * ABO and Rh (03/12/2025 3:46 PM EDT) Expiration Date of Sample 04/07/2025 11:59 PM [facility] ABO A 04/06/2025 8:35 AM EDT [facility] Rh Positive 04/06/2025 8:35 AM EDT [facility] Comment:Patient Transfused, specimen exp. date updated Resulting Agency [facility] 03/12/2025 3:46 PM EDT 03/12/2025 5:16 PM EDT us Blood Bank LAB BLOOD BANK TEST ORDERABLES F inal Result [facility] [address] [place] [address] * (ABNORMAL) CBC and differential (03/12/2025 3:46 PM EDT) Only the most recent of2 resultswithin the time period is included. WBC 5.43 4.00 - 11.00 K/uL [facility] RBC 3.77(L) 4.00 - 5.20 M/uL [facility] HGB 11.9(L) 12.0 - 16.0 g/dL [facility] HCT 37.6 36.0 - 46.0 % [facility] PLT 255 150 - 450 K/uL [facility] MCV 99.7 80.0 - 100.0 fL [facility] MCH 31.6(H) 27.0 - 31.0 pg [facility] MCHC 31.6(L) 32.0 - 36.0 g/dL [facility] RDW 13.5 11.5 - 14.5 % [facility] MPV 10.3 8.4 - 12.0 fL [facility] NRBC 0.00 0.00 /100 WBCs [facility] ABSOLUTE NRBC 0.00 0.00 K/uL [facility] DIFF [facility] NEUTS 65.7 48.0 - 76.0 % [facility] LYMPHS 20.6 18.0 - 41.0 % [facility] MONOS 10.7 4.0 - 11.0 % [facility] EOS 1.3 0.0 - 5.0 % [facility] BASOS 1.5 0.0 - 1.5 % [facility] % IMMATURE GRANS 0.2 0.0 - 0.9 % [facility] ABSOLUTE NEUTS 3.57 1.92 - 7.60 K/uL [facility] ABSOLUTE LYMPHS 1.12 0.72 - 4.10 K/uL [facility] ABSOLUTE MONOS 0.58 0.16 - 1.10 K/uL [facility] ABSOLUTE EOS 0.07 0.00 - 0.50 K/uL [facility] ABSOLUTE BASOS 0.08 0.00 - 0.15 K/uL [facility] ABS IMMATURE GRANS 0.01 0.00 - 0.09 K/uL [facility] Blood 03/12/2025 3:46 PM EDT 03/12/2025 5:48 PM EDT Marjoriea Lea TURNER IN LAB BLOOD BKR ORDERABLES Jessica l Result [address] [address] * (ABNORMAL) Hemoglobin A1c (03/12/2025 3:46 PM EDT) HEMOGLOBIN A1C 5.8(H) 4.3 - 5.6 % [facility] Comment:HbA1c levels 5.7-6.4 % represent pre-diabetes, indicating impaired glucose control and an increased risk of developing diabetes compared with lower HbA1c levels. The diagnostic HbA1c level for diabetes is 6.5% or greater. CALC MEAN BLD GLUC 120 mg/dL [facility] Comment:There is no [facility] normal range for the Calculated Mean Blood Glucose (CMBG), however a HbA1c of 5.6% (upper limit of normal) represents a CMBG of 114 mg/dL. The diagnostic hemoglobin A1c level for diabetes is greater than or equal to 6.5% which represents a CMBG greater than or equal to 140 mg/dL. 03/12/2025 3:46 PM EDT 03/12/2025 5:49 PM EDT us Olivier Tate TURNER IN LAB BLOOD BKR ORDERABLES Jessica l Result Performing Organization Address City/[facility]/ZIP Co de Phone Number [address] [address] * Pulmonary Function Test Reason for Exam: Dyspnea/Shortness of Breath; Type of PFT Test: Spirometry with bronchodilator, DLCO, Lung Volumes; Performing Location: [facility] Main [place]; Request Procedure Anita: PFT; Type: PFT - Complete; [facility] PFT Lab will ... (03/12/2025 2:29 PM [...] THORACIC AND ABDOMINAL AORTA WITHOUT CONTRAST 3.0 [place] MR Angiogram of the thoracic aorta was [...] Outside Images for comparison purposes only. Result [facility] Admitting CV CARDIAC CATH ORDERABLE S Final Result * Outside Echo Report Only (02/12/2025 1:08 PM EDT) Other Narrative SYSTEMGENERATED, DOCUMENTATION - 02/12/2025 1:08 PM EDT Outside Images for comparison purposes only. [facility] Admitting CV ECHO ORDERABLES Final Result * Outside Echo Report Only (02/12/2025 1:08 PM EDT) Other Narrative SYSTEMGENERATED, DOCUMENTATION - 02/12/2025 1:08 PM EDT Outside Images for comparison purposes only. [facility] Admitting CV ECHO ORDERABLES Final [...] obtained by: Consent obtained with help of Icelandic product lister as well as family members. Frannie Alves [...] Yuen MD - 02/09/2025 11:04 AM EDT [facility] Patient Name: Rossy Mitchell [...] infection, need for surgery, blood transfusions (unless Latter day),heart and respiratory complications amongst others. The endoscope [...] specimens collected. Recommendation: - Refer to a central processing tech as previously scheduled.The CB will be scheduled and endoscopy forcontinuation of her sedation for patient's convenience Anastacio Yuen MD 02/09/2025 11:53:27 AM This report has been signed electronically. Number of Addenda: 0 Estimated Blood Loss: Estimated blood loss: none. [address] [place] [phone] us Unknown Unknown GI PROCEDURE ORDERABLES Final [...] micropuncture kit. Sheath upsized to 7F sheath. [place]-Srikanth catheter advanced and balloon inflated. Catheter passed [...] 210(H) 0 - 200 mg/dL [facility] TRIGLYCERIDES 118 0 - 150 mg/dL [facility] HDL 66 40 - 80 mg/dL [facility] LDL Chol (Direct) 134(H) 0 - 130 mg/dL [facility] CARDIAC RISK RATIO 3.2 [facility] Blood 01/18/2025 1:43 PM EDT 01/18/2025 1:46 PM EDT Bryn Curran MD LAB BLOOD B KR ORDERABLES Final Result [address] [phone] * TSH with reflex (01/18/2025 1:43 PM EDT) SCREENING PANEL: TSH 2.77 0.34 - 5.9 uIU/mL [facility] Blood 01/18/2025 1:43 PM EDT 01/18/2025 1:46 PM EDT us Bryn Curran MD LAB BLOOD B [place] [address], [facility] [phone] from Last 3 Months or Most Recently Relevant to Health Maintenance Insurance MEDICARE PART A & B MEDICARE PART A & B MEDICARE PART A & B MEDICARE PART A & B MEDICARE PART A & B MEDICARE PART A & B Advance Directives For more information, please contact: [phone] (9AM - 5PM [facility], Saturday-Saturday) Documents on File Type Date Recorded Patient Pile Driving Nozzleman Expl anation Healthcare Proxy 03/12/2025 1:59 PM Advance Directive - Non Epic LMR 10/10/2009 12:00 AM * Full Code (Latest Code Status on File) Date Activated Date Inactivated Comments 03/25/2025 1:44 PM Question Answer Comments Code Status Confirmed With: Other (specify below ) Code Discussion Comments: OR Care Teams Customer Sales Specialist Relationship Specialty Start Date End Date Carolina Madison MD [address] [place] [address] PCP - General Internal Medicine 12/10/24 Aleshia Leonard MD [address] [place] [id number] [email or web address], [email or web address] Thoracic Surgery 01/26/25 Bryn Dominguez MD [address] [place] [address] [email or web address] Cardiology 02/25/25 LeaderIvonne APRN [address] [place] [address] [email or web address] Nurse Practitioner 04/06/25 Additional Source Comments The information contained in this document represents components of the legal health record. It is not the complete legal health record.[facility]
== END 2025-05-10 13:35 | disposition home or self-care (01) ==
LOC: HO.HKA 13:15
PROVIDERS: PCP Internal Medicine; Visit Provider Internal Medicine Hypertension Specialist
DX: I12.9 Hypertensive chronic kidney disease with stage 1 through stage 4 chronic kidney disease, or unspecified chronic kidney disease (principal); N18.4 Chronic kidney disease, stage 4 (severe)
CPT/HCPCS: 99214

== ENCOUNTER → 2025-05-10 13:14 | Outpatient (BNVA) | payer MEDICARE, SELFPAY | PROVIDERS: PCP Internal Medicine; Visit Provider Internal Medicine Hypertension Specialist | DX: I12.9 Hypertensive chronic kidney disease with stage 1 through stage 4 chronic kidney disease, or unspecified chronic kidney disease (principal); N18.4 Chronic kidney disease, stage 4 (severe); N17.9 Acute kidney failure, unspecified; Z87.891 Personal history of nicotine dependence; Z79.82 Long term (current) use of aspirin; Z79.01 Long term (current) use of anticoagulants; Z95.2 Presence of prosthetic heart valve | CPT/HCPCS: 99212 ==

== ENCOUNTER 2025-06-16 09:58 | Outpatient (REF) | payer MEDICARE, SELFPAY ==
[2025-06-16 11:25] LABS: INTERNATIONAL NORM RATIO 2.7 (0.9-1.1); Prothrombin Time 32.2 SEC (11.2-13.5)
== END 2025-06-16 09:59 | disposition home or self-care (01) ==
LOC: HO.LAB 09:58
PROVIDERS: PCP Internal Medicine; Visit Provider Internal Medicine Nephrology
DX: I12.9 Hypertensive chronic kidney disease with stage 1 through stage 4 chronic kidney disease, or unspecified chronic kidney disease (principal); N18.4 Chronic kidney disease, stage 4 (severe); N28.1 Cyst of kidney, acquired; Z87.891 Personal history of nicotine dependence
CPT/HCPCS: 36415; 85610

== ENCOUNTER 2025-06-16 09:58 | Outpatient (AMB) | payer MEDICARE, SELFPAY ==
--- NOTE | 2025-06-16 10:02 | HO.NEPHOV_ITS ---
Vital Signs 06/16/25 10:03 Height 5 ft 3.2 in BP 142/68 H Blood Pressure Location Rt brachial Position Sitting Pulse 46 L Pulse Source Pulse Oximeter Pulse Oximetry (%) 95 Oxygen Delivery Method Room Air Intake Visit Reasons: BP concerns/ Pt- Conf Php Developer Required: No Accompanied by: Daughter Allergies No Known Allergies Allergy (Verified 06/16/25 10:04) HPI Comments Details: Ingris is a 79-year-old female presenting with chronic kidney disease stage 4. She had ascending aortic aneurysm which was repaired with a graft. At the same time she underwent bioprosthetic valve replacement on March 25. She has atrial Fibrillation and is on Coumadin for anticoagulation. She is now thought to have aortitis and is going to undergo PET scan( [facility] She has H/O slightly smaller kidney on the left than right but denies any knowledge of GIULIANA. Her HR has been running low and her BP has been running high. She takes Indapamide but does not know why she is on it. She has no fever, chest pain, edema but has balance issues without any orthostatic symptoms. Her renal function has been at baseline. [facility] Medical History (Updated 06/16/25 @ 10:46 by Shayne Munoz MD) Anxiety Bradycardia CKD (chronic kidney disease) stage 4, GFR 15-29 ml/min Sleep apnea Aortic regurgitation GERD (gastroesophageal reflux disease) A-fib HTN (hypertension) Surgical History History of aortic valve replacement with bioprosthetic valve S/P ascending aortic aneurysm repair History of open heart surgery (~03/2025) Hx of thyroidectomy Hx of breast surgery History of back surgery Family History Father Hypertension Heart attack Mother No problems noted. Social History Household Members Other:: , lives in [place] for most of the year Housing: House Patient Tobacco Use Status: Former Tobacco user e-Cigarette/Vaping Use: Never Used service: No Current occupational status: retired Cognitive needs: No Hearing needs: No Vision needs: Yes Review of Systems Const All systems reviewed & are unremarkable except as noted in HPI and below Physical Exam Vital Signs: Last Vital Signs Pulse 46 L 06/16/25 10:03 BP 142/68 H 06/16/25 10:03 Pulse Ox 95 06/16/25 10:03 Oxygen Delivery Method Room Air 06/16/25 10:03 Const General: comfortable and no acute distress Orientation/consciousness: patient oriented x3 HEENT Head: Yes normocephalic Mouth: Normal oral and palatal mucosa present Eyes EOM: EOMs intact bilaterally Neck Neck: Yes supple Resp Auscultation: clear to auscultation bilaterally Cardio Jugular venous distension: no JVD Rate: regular rate GI Palpation (GI): Soft to palpation Auscultation: normal bowel sounds General: Yes no CVA tenderness Back/Spine/Pelvis Back: no CVA tenderness Skin General skin exam: no rashes or lesions noted Neuro General: patient oriented x3 and moves all extremities Extrem General: Yes no pedal edema Results Reviewed Nephrology Results: Hgb, (12.0-16.0) 10.0 g/dl L Δ 04/22/25 WBC, (4.8-10.8) 5.2 X10*3/uL 04/22/25 Plt Count, (160-400) 372 X10*3/uL Δ 04/22/25 Sodium, (135-145) 143 mmol/L 04/22/25 Potassium, (3.3-5.1) 3.7 mmol/L 04/22/25 Chloride, (96-108) 107 mmol/L 04/22/25 Carbon Dioxide, (22-29) 30 mmol/L H 04/22/25 BUN, (9-16) 26 mg/dL H 04/22/25 Creatinine, (0.5-1.4) 2.03 mg/dL H 04/22/25 Calcium, (8.4-10.2) 9.6 mg/dL Δ 04/22/25 Renal US 12/16/24 Assessment & Plan Assessment & Plan (1) HTN (hypertension): Code(s): I10 - Essential (primary) hypertension Category: Medical Qualifiers: Hypertension type: renovascular hypertension Qualified Code(s): I15.0 - Renovascular hypertension (2) CKD (chronic kidney disease) stage 4, GFR 15-29 ml/min: Code(s): N18.4 - Chronic kidney disease, stage 4 (severe) Category: Medical (3) Renal cyst: Code(s): N28.1 - Cyst of kidney, acquired Category: Medical Plan Renal ultrasonogram in December 2024 showed slightly smaller kidney on left. 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 Her serum creatinine is stable. She has no H/O HF. Has not had an ECHO recently. Going to undergo PET for aortitis. I discontinued her Indapamide and started on Spironolactone. F/U labs ordered. May have to get metoprolol adjusted given HR. F/U given Orders: Orders Creatinine 2 Weeks I10 - Essential (primary) hypertension Blood Urea Nitrogen 2 Weeks I10 - Essential (primary) hypertension Electrolytes 2 Weeks I10 - Essential (primary) hypertension Medications: New amiodarone 200 mg PO DAILY 30 tabs 0RF spironolactone 25 mg PO DAILY 30 tabs 6RF Discontinued indapamide Discontinued Reason: Doctor's Order 1.25 mg PO QAM 90 tabs 4RF Coding Level of Care Code Est Pt Level 4 (59197) Diagnoses Renovascular hypertension I15.0 Hypertension type: renovascular hypertension CKD (chronic kidney disease) stage 4, GFR 15-29 ml/min N18.4 Renal cyst N28.1
[2025-06-16 10:03] VITALS: BP 142/68; PULSE 46; O2SAT 95
--- OUTSIDE RECORDS SUMMARY | 2025-06-16 10:54 | XMS_ITS | Encounter Summary ---
Author Organization [facility] Address [address] [facility] [address] [place] [address] Phone Care Team Providers Care Assembler Trim Name Role Phone Carolina Madison MD Primary Care Provider Aleshia Leonard MD Unavailable [phone] Bryn Dominguez MD Unavailabl e LeaderIvonne APRN Unavailable [phone] Encounter Details Date Type Department Care Team (Late st Contact Info) Description 03/25/2025 Procedure Pass [facility] Cardiac Ultrasound [address] [place] [address] Social History Tobacco Use Types Packs/Day Years [...] Care Team (Late st Contact Info) Description 06/01/2025 Procedure [facility] - Pet Scan, [facility] [address] [place] [address] 06/29/2025 8:30 AM EST Office Visit [facility]iology Clinic at the [address], 5th Floor, [address] [place] [address] Geronimo Thompson MD [address] [place] [phone] [email or web address] 06/30/2025 11:15 AM EST Appointment [facility] - Pet Scan, [facility] [address] [place] [address] Salvador Anaya MD [address] [place] [address] [address] [place] [phone] [email or web address] 07/02/2025 11:45 AM EST Office Visit [facility] Clinic [address] [place] [address] Bryn Dominguez MD [address] [facility] [place] [address] 02/17/2026 3:20 PM EDT Office Visit [facility] [address] [facility], 4th Floor, [address] [place] [address] Salvador Anaya MD [address] [facility] [address] [place] [phone] [email or web address] documented as of this encounter Visit Diagnoses Not on filedocumented in this encounter Additional Health Concerns Infection Onset Date Last Indicated Resolved Time CoV-Risk Comment:Per note documentation 03/28/2025 03/28/2025 9:57 AM EDT documented as of this encounter Care Teams Assembler Trim Relationship Specialty Start Date End Date Carolina Madison MD [address] [place] [address] PCP - General Internal Medicine 12/10/24 Aleshia Leonard MD [address] [facility] [address] [place] [address] [email or web address] Thoracic Surgery 01/26/25 Bryn Dominguez MD [address] [place] [address] Cardiology 02/25/25 Ivonne Chicas APRN [address] [place] [address] [email or web address] Nurse Practitioner 04/06/25 documented as of this encounter Additional Source Comments The information contained in this document represents components of the legal health record. It is not the complete legal health record.[facility]
--- OUTSIDE RECORDS SUMMARY | 2025-06-16 10:54 | XMS_ITS | Encounter Summary ---
Author Organization [facility] Address [address] [facility] [address] [place] [address] Phone Care Team Providers Care Tobacco Sample Puller Name Role Phone Carolina Madison MD Primary Care Provider [phone] Aleshia Leonard MD Unavailable [phone] Bryn Dominguez MD Unavailabl e LeaderIvonne APRN Unavailable [phone] Encounter Details Date Type Department Care Team (Late st Contact Info) Description 03/25/2025 Procedure Pass [facility] [address] [place] [phone] Social History Tobacco Use Types Packs/Day Years [...] st Contact Info) Description 06/01/2025 Procedure Pass [facility] Imaging - Pet Scan, [facility] [address] [place] [address] 06/29/2025 8:30 AM EST Office Visit [facility] Clinic at the [facility] [address] [facility], 5th Floor, [address] [place] [address] Geronimo Thompson MD [address] [place] [phone] [email or web address] 06/30/2025 11:15 AM EST Appointment [facility] Imaging - Pet Scan, [facility] [address] [place] [address] Salvador Anaya MD [address] [place] [address] [address] [place] [phone] [email or web address] 07/02/2025 11:45 AM EST Office Visit [facility] Cardiology Clinic [address] [place] [address] Bryn Dominguez MD [address] [place] [address] 02/17/2026 3:20 PM EDT Office Visit [facility] [address] [facility], 4th Floor, [address] [place] [address] Salvador Anaya MD [address] [facility] [address] [place] [phone] [email or web address] documented as of this encounter Visit Diagnoses Not on filedocumented in this encounter Additional Health Concerns Infection Onset Date Last Indicated Resolved Time CoV-Risk Comment:Per note documentation 03/28/2025 03/28/2025 9:57 AM EDT documented as of this encounter Care Teams Tobacco Sample Puller Relationship Specialty Start Date End Date Carolina Madison MD [facility] [place] [address] PCP - General Internal Medicine 12/10/24 Aleshia Leonard MD [address] [facility] [address] [place] [address] MARIA [email or web address] Thoracic Surgery 01/26/25 Bryn Dominguez MD [address] [place] [address] [email or web address] Cardiology 02/25/25 Ivonne Chicas APRN [address] [place] [address] [email or web address] Nurse Practitioner 04/06/25 documented as of this encounter Additional Source Comments The information contained in this document represents components of the legal health record. It is not the complete legal health record.[facility]
--- OUTSIDE RECORDS SUMMARY | 2025-06-16 10:54 | XMS_ITS | Clinical Summary ---
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
--- OUTSIDE RECORDS SUMMARY | 2025-06-16 10:54 | XMS_ITS | Encounter Summary ---
Author Organization [facility] Address [address] [facility] [address] [place] [address] Phone Care Team Providers Care Skidder Lever Operator Name Role Phone Carolina Madison MD Primary Care Provider [phone] Aleshia Leonard MD Unavailable [phone] Bryn Dominguez MD Unavailabl e LeaderIvonne APRN Unavailable [phone] Encounter Details Date Type Department Care Team (Late st Contact Info) Description 03/29/2025 Procedure Pass [facility] Cardiac Ultrasound [address] [place] [address] Social History Tobacco Use Types Packs/Day Years [...] st Contact Info) Description 06/01/2025 Procedure Pass [facility] Imaging - Pet Scan, Main [place] [address] [place] [address] 06/29/2025 8:30 AM EST Office Visit [facility] Cardiology Clinic at the [facility] Heart [address], 5th Floor, [address] [place] [address] Geronmio Thompson MD 55 [facility] [address] [phone] GEORGINA@[email or web address] u 06/30/2025 11:15 AM EST Appointment [facility] Imaging - Pet Scan, Main [place] [address] [place] [address] Salvador Anaya MD [address] [place] [address] [phone] KRISTINA@[facility] 07/02/2025 11:45 AM EST Office Visit [facility] Cardiology [facility] 19 [place] [address] Bryn Dominguez MD 19 [place] [address] [email or web address] 02/17/2026 3:20 PM EDT Office Visit [facility] Rheumatology Clinic [address] [place] [address], 4th Floor, [address] [place] [address] Salvador Anaya MD [address] [place] [phone] KRISTINA@[facility] documented as of this encounter Visit Diagnoses Not on filedocumented in this encounter Additional Health Concerns Infection Onset Date Last Indicated Resolved Time CoV-Risk Comment:Per note documentation 03/28/2025 03/28/2025 9:57 AM EDT documented as of this encounter Care Teams Skidder Lever Operator Relationship Specialty Start Date End Date Carolina Madison MD [address] [place] [address] PCP - General Internal Medicine 12/10/24 Aleshia Leonard MD 55 [facility] [address] [place] [address] MARIA VICTORIA@[email or web address] Thoracic Surgery 01/26/25 Bryn Dominguez MD 19 [place] [address] [email or web address] Cardiology 02/25/25 Ivonne Chicas APRN 19 [place] [address] [email or web address] Nurse Practitioner 04/06/25 documented as of this encounter Additional Source Comments The information contained in this document represents components of the legal health record. It is not the complete legal health record.[facility]
--- OUTSIDE RECORDS SUMMARY | 2025-06-16 10:55 | XMS_ITS | Encounter Summary ---
Author Organization [facility] Address [address] [facility] [address] [place] [address] Phone Care Team Providers Care Repair Order Clerk Name Role Phone Carolina Madison MD Primary Care Provider [phone] Aleshia Leonard MD Unavailable [phone] Bryn Dominguez MD Unavailabl e LeaderIvonne APRN Unavailable [phone] Encounter Details Date Type Department Care Team (Late st Contact Info) Description 04/29/2025 Telephone [facility] Cardiac Surgery Clinic at the [facility] [address] [facility], 6th Floor, [address] [place] [address] Aleshia Leonard MD 55 [facility] 630 [place] [address] MARIA VICTORIA@[email or web address] Social History Tobacco Use Types [...] st Contact Info) Description 06/01/2025 Procedure Pass [facility] Imaging - Pet Scan, Main [place] 2013 [place] [address] 06/29/2025 8:30 AM EST Office Visit [facility] Cardiology Clinic at the [address], 5th Floor, [address] [place] [address] Geronimo Thompson MD 55 [facility] [address] [place] [phone] GEORGINA@[email or web address] u 06/30/2025 11:15 AM EST Appointment [facility] Imaging - Pet Scan, Main [place] [address] [place] [address] Salvador Anaya MD 55 [facility] [place] [phone] KRISTINA@[facility] 07/02/2025 11:45 AM EST Office Visit [facility] [place] [address] Bryn Dominguez MD 19 [place] [address] [email or web address] 02/17/2026 3:20 PM EDT Office Visit [facility] Rheumatology Clinic 55 [facility], 4th Floor, [address] [place] [address] Salvador Anaya MD [address] [place] [phone] KRISTINA@[facility] documented as of this encounter Visit Diagnoses Not on filedocumented in this encounter Care Teams Repair Order Clerk Relationship Specialty Start Date End Date Carolina Madison MD [address] [place] [address] PCP - General Internal Medicine 12/10/24 Aleshia Leonard MD 55 [facility] 630 [place] [address] MARIA VICTORIA@[email or web address] Thoracic Surgery 01/26/25 Bryn Dominguez MD [address] [place] [address] Cardiology 02/25/25 Ivonne Chicas APRN [address] [place] [address] [email or web address] Nurse Practitioner 04/06/25 documented as of this encounter Additional Source Comments The information contained in this document represents components of the legal health record. It is not the complete legal health record.[facility]
--- OUTSIDE RECORDS SUMMARY | 2025-06-16 10:55 | XMS_ITS | Encounter Summary ---
Author Organization [facility] Address [address] [facility] [address] [place] [address] Phone Care Team Providers Care Rubber Process Hand Name Role Phone Carolina Madison MD Primary Care Provider [phone] Aleshia Leonard MD Unavailable [phone] Bryn Dominguez MD Unavailabl e Ivonne Chicas APRN Unavailable [phone] Encounter Details Date Type Department Care Team (Late st Contact Info) Description 02/12/2025 Procedure Pass [facility] Cardiology Referral Images [address] [place] [address] Social History Tobacco Use Types Packs/Day Years [...] st Contact Info) Description 06/01/2025 Procedure Pass [facility] Imaging - Pet Scan, [facility] [address] [place] [address] 06/29/2025 8:30 AM EST Office Visit [facility] Cardiology Clinic at the [address], 5th Floor, [address] [place] [address] Geronimo Thompson MD [address] [place] [phone] GEORGINA@[email or web address] 06/30/2025 11:15 AM EST Appointment [facility] Imaging - Pet Scan, [facility] [address] [place] [address] Salvador Anaya MD [address] [place] [address] [address] [place] [phone] KRISTINA@[email or web address]. [facility] 07/02/2025 11:45 AM EST Office Visit [facility] Cardiology Clinic [address] [place] [address] Bryn Dominguez MD 19 [place] [address] 02/17/2026 3:20 PM EDT Office Visit [facility] 55 [facility], 4th Floor, [address] [place] [address] Salvador Anaya MD 55 [facility] [address] [place] [phone] KRISTINA@[email or web address] documented as of this encounter Visit Diagnoses Not on filedocumented in this encounter Additional Health Concerns Infection Onset Date Last Indicated Resolved Time CoV-Risk Comment:Per note documentation 03/28/2025 03/28/2025 9:57 AM EDT documented as of this encounter Care Teams Rubber Process Hand Relationship Specialty Start Date End Date Carolina Madison MD [facility] [place] [address] PCP - General Internal Medicine 12/10/24 Aleshia Leonard MD 55 [facility] 630 [place] [address] MARIA VICTORIA@[email or web address] Thoracic Surgery 01/26/25 Bryn Dominguez MD 19 [place] [address] [email or web address] Cardiology 02/25/25 Ivonne Chicas APRN 19 [place] [address] [email or web address] Nurse Practitioner 04/06/25 documented as of this encounter Additional Source Comments The information contained in this document represents components of the legal health record. It is not the complete legal health record.[facility]
--- OUTSIDE RECORDS SUMMARY | 2025-06-16 10:55 | XMS_ITS | Encounter Summary ---
Author Organization [facility] Address [address] [facility] [address] [place] [address] Phone Care Team Providers Care Cycle Liaison Name Role Phone Carolina Madison MD Primary Care Provider Aleshia Leonard MD Unavailable [phone] Bryn Dominguez MD Unavailabl e Ivonne Chicas APRN Unavailable [phone] Encounter Details Date Type Department Care Team (Late st Contact Info) Description 01/19/2025 Procedure Pass [facility] Imaging - MRI, Main [place] 2013 [place] [address] Social History Tobacco [...] st Contact Info) Description 06/01/2025 Procedure Pass [facility] Imaging - Pet Scan, [facility] [address] [place] [address] 06/29/2025 8:30 AM EST Office Visit [facility] Cardiology Clinic at the [facility] [address] [facility], 5th Floor, [address] [place] [address] Geronimo Thompson MD [address] [phone] GEORGINA@[email or web address] u 06/30/2025 11:15 AM EST Appointment [facility] Imaging - Pet Scan, [facility] [address] [place] [address] Salvador Anaya MD [address] [place] [phone] KRISTINA@[facility] 07/02/2025 11:45 AM EST Office Visit [facility] Cardiology Clinic [address] [place] [address] Bryn Dominguez MD 19 [place] [address] [email or web address] 02/17/2026 3:20 PM EDT Office Visit [facility] Rheumatology Clinic [address] [facility], 4th Floor, [address] [place] [address] Salvador Anaay MD [address] [place] [phone] KRISTINA@[facility] documented as of this encounter Visit Diagnoses Not on filedocumented in this encounter Additional Health Concerns Infection Onset Date Last Indicated Resolved Time CoV-Risk Comment:Per note documentation 03/28/2025 03/28/2025 9:57 AM EDT documented as of this encounter Care Teams Cycle Liaison Relationship Specialty Start Date End Date Carolina Madison MD [address] [place] [address] PCP - General Internal Medicine 12/10/24 Aleshia Leonard MD [address] [place] [address] MARIA VICTORIA@[email or web address] Thoracic Surgery 01/26/25 Bryn Dominguez MD 19 [place] [address] Cardiology 02/25/25 Ivonne Chicas APRN 19 [place] [address] Nurse Practitioner 04/06/25 documented as of this encounter Additional Source Comments The information contained in this document represents components of the legal health record. It is not the complete legal health record.[facility]
--- OUTSIDE RECORDS SUMMARY | 2025-06-16 10:55 | XMS_ITS | Encounter Summary ---
Author Organization [facility] Address [address] [place] [address] [place] [address] Phone Care Team Providers Care Utility System Repairer Name Role Phone Carolina Madison MD Primary Care Provider [phone] Aleshia Leonard MD Unavailable [phone] Bryn Dominguez MD Unavailabl e Ivonne Chicas APRN Unavailable [phone] Encounter Details Date Type Department Care Team (Late st Contact Info) Description 01/18/2025 Procedure Pass [facility]EP [facility] [address] [place] [address] Social History Tobacco Use Types [...] st Contact Info) Description 06/01/2025 Procedure Pass [facility] Imaging - Pet Scan, Main [place] 2013 [place] [address] 06/29/2025 8:30 AM EST Office Visit [facility] Cardiology Clinic at the [facility] 32 [facility], 5th Floor, [address] [place] [address] Geronimo Thompson MD [address] [phone] GEORGINA@[email or web address] u 06/30/2025 11:15 AM EST Appointment [facility] Imaging - Pet Scan, [facility] 2013 [place] [address] Salvador Anaya MD [address] [place] [phone] KRISTINA@[facility] 07/02/2025 11:45 AM EST Office Visit [facility] Cardiology Clinic [address] [place] [address] Bryn Dominguez MD 19 [place] [address] [email or web address] 02/17/2026 3:20 PM EDT Office Visit [facility] Rheumatology Clinic 55 [facility], 4th Floor, [address] [place] [address] Salvador Anaya MD [address] [place] [phone] KRISTINA@[facility] documented as of this encounter Visit Diagnoses Not on filedocumented in this encounter Additional Health Concerns Infection Onset Date Last Indicated Resolved Time CoV-Risk Comment:Per note documentation 03/28/2025 03/28/2025 9:57 AM EDT documented as of this encounter Care Teams Utility System Repairer Relationship Specialty Start Date End Date Carolina Madison MD [address] [place] [address] PCP - General Internal Medicine 12/10/24 Aleshia Leonard MD [address] [place] [address] MARIA VICTORIA@[email or web address] Thoracic Surgery 01/26/25 Bryn Dominguez MD 19 [place] [address] Cardiology 02/25/25 Ivonne Chicas APRN 19 [place] [address] Nurse Practitioner 04/06/25 documented as of this encounter Additional Source Comments The information contained in this document represents components of the legal health record. It is not the complete legal health record.[facility]
--- OUTSIDE RECORDS SUMMARY | 2025-06-16 10:55 | XMS_ITS | Encounter Summary ---
Author Organization [facility] Address [address] [facility] [address] [place] [address] Phone Care Team Providers Care Leather Polisher Name Role Phone Carolina Madison MD Primary Care Provider [phone] Aleshia Leonard MD Unavailable [phone] Bryn Dominguez MD Unavailabl e Ivonne Chicas APRN Unavailable [phone] Encounter Details Date Type Department Care Team (Late st Contact Info) Description 02/09/[address] [facility] Endoscopy [address] [place] [address] Social History Tobacco Use Types [...] st Contact Info) Description 06/01/2025 Procedure Pass [facility] Imaging - Pet Scan, [facility] 2013 [place] [address] 06/29/2025 8:30 AM EST Office Visit [facility] Cardiology Clinic at the [facility] 32 [facility], 5th Floor, [address] [place] [address] Geronimo Thompson MD [address] [place] [address] [address] [place] [phone] GEORGINA@[email or web address] 06/30/2025 11:15 AM EST Appointment [facility] Imaging - Pet Scan, [facility] [address] [place] [address] Salvador Anaya MD 55 [facility] [address] [place] [phone] KRISTINA@[email or web address]. [email or web address] 07/02/2025 11:45 AM EST Office Visit [facility] Cardiology Clinic [address] [place] [address] Bryn Dominguez MD 19 [place] [address] 02/17/2026 3:20 PM EDT Office Visit [facility] 55 [facility], 4th Floor, [address] [place] [address] Salvador Anaya MD 55 [facility] [address] [place] [phone] KRISTINA@[facility] documented as of this encounter Visit Diagnoses Not on filedocumented in this encounter Additional Health Concerns Infection Onset Date Last Indicated Resolved Time CoV-Risk Comment:Per note documentation 03/28/2025 03/28/2025 9:57 AM EDT documented as of this encounter Care Teams Leather Polisher Relationship Specialty Start Date End Date Carolina Madison MD [address] [place] [address] PCP - General Internal Medicine 12/10/24 Aleshia Leonard MD 55 [facility] 630 [place] [address] MARIA VICTORIA@[facility] Thoracic Surgery 01/26/25 Bryn Dominguez MD 19 [place] [address] [email or web address] Cardiology 02/25/25 Ivonne Chicas APRN 19 [place] [address] Nurse Practitioner 04/06/25 documented as of this encounter Additional Source Comments The information contained in this document represents components of the legal health record. It is not the complete legal health record.[facility]
--- OUTSIDE RECORDS SUMMARY | 2025-06-16 10:55 | XMS_ITS | Encounter Summary ---
Author Organization [facility] Address [address] [facility] [address] [place] [address] Phone Care Team Providers Care Assembler Dry Cell And Battery Name Role Phone Carolina Madison MD Primary Care Provider [phone] Aleshia Leonard MD Unavailable [phone] Bryn Dominguez MD Unavailabl e LeaderIvonne APRN Unavailable [phone] Encounter Details Date Type Department Care Team (Late st Contact Info) Description 02/09/2025 Procedure Pass [facility]/EP Lab [address] [place] [address] Social History Tobacco Use Types [...] st Contact Info) Description 06/01/2025 Procedure Pass [facility] Imaging - Pet Scan, [facility] [address] [place] [address] 06/29/2025 8:30 AM EST Office Visit [facility] Cardiology Clinic at the [facility] 32 [facility], 5th Floor, [address] [place] [address] Geronimo Thompson MD [address] [place] [phone] GEORGINA@[email or web address].[facility] 06/30/2025 11:15 AM EST Appointment [facility] Imaging - Pet Scan, [facility] [address] [place] [address] Salvador Anaya MD [address] [place] [address] [address] [place] [phone] KRISTINA@[email or web address].[place]. [facility] 07/02/2025 11:45 AM EST Office Visit [facility] Cardiology Clinic 19 [place] [address] Bryn Dominguez MD 19 [place] [address] [email or web address] 02/17/2026 3:20 PM EDT Office Visit [facility] 55 [facility], 4th Floor, [address] [place] [address] Salvador Anaya MD 55 [facility] [address] [place] [phone] KRISTINA@[email or web address] documented as of this encounter Visit Diagnoses Not on filedocumented in this encounter Additional Health Concerns Infection Onset Date Last Indicated Resolved Time CoV-Risk Comment:Per note documentation 03/28/2025 03/28/2025 9:57 AM EDT documented as of this encounter Care Teams Assembler Dry Cell And Battery Relationship Specialty Start Date End Date Carolina Madison MD [address] [place] [address] PCP - General Internal Medicine 12/10/24 Aleshia Leonard MD 55 [facility] 630 [place] [address] MARIA VICTORIA@[email or web address] Thoracic Surgery 01/26/25 Bryn Dominguez MD 19 [place] [address] Cardiology 02/25/25 Ivonne Chicas APRN 19 [place] [address] [email or web address] Nurse Practitioner 04/06/25 documented as of this encounter Additional Source Comments The information contained in this document represents components of the legal health record. It is not the complete legal health record.[facility]
--- OUTSIDE RECORDS SUMMARY | 2025-06-16 10:55 | XMS_ITS | Encounter Summary ---
Author Organization [facility] Address [address] [facility] [address] [place] [address] Phone Care Team Providers Care Exercise Manager Name Role Phone Carolina Madison MD Primary Care Provider [phone] Aleshia Leonard MD Unavailable Bryn Dominguez MD Unavailabl e Ivonne Chicas APRN Unavailable [phone] Encounter Details Date Type Department Care Team (Late st Contact Info) Description 01/19/2025 Procedure Pass [facility] Imaging - MRI, Main [place] [address] [place] [address] Social History Tobacco Use Types [...] st Contact Info) Description 06/01/2025 Procedure Pass [facility] Imaging - Pet Scan, [facility] [address] [place] [address] 06/29/2025 8:30 AM EST Office Visit [facility] Cardiology Clinic at the [facility] [address] [facility], 5th Floor, [address] [place] [address] Geronimo Thompson MD [address] [phone] GEORGINA@[email or web address] u 06/30/2025 11:15 AM EST Appointment [facility] Imaging - Pet Scan, [facility] 2013 [place] [address] Salvador Anaya MD [address] [place] [phone] KRISTINA@[facility] 07/02/2025 11:45 AM EST Office Visit [facility] Cardiology Clinic [address] [place] [address] Bryn Dominguez MD 19 [place] [address] [email or web address] 02/17/2026 3:20 PM EDT Office Visit [facility] Rheumatology Clinic [address] [facility], 4th Floor, [address] [place] [address] Salvador Anaya MD [address] [place] [phone] KRISTINA@[facility] documented as of this encounter Visit Diagnoses Not on filedocumented in this encounter Additional Health Concerns Infection Onset Date Last Indicated Resolved Time CoV-Risk Comment:Per note documentation 03/28/2025 03/28/2025 9:57 AM EDT documented as of this encounter Care Teams Exercise Manager Relationship Specialty Start Date End Date Carolina Madison MD [address] [place] [address] PCP - General Internal Medicine 12/10/24 Aleshia Leonard MD [address] [place] [address] MARIA VICTORIA@[email or web address] Thoracic Surgery 01/26/25 Bryn Dominguez MD 19 [place] [address] Cardiology 02/25/25 Ivonne Chicas APRN 19 [place] [address] Nurse Practitioner 04/06/25 documented as of this encounter Additional Source Comments The information contained in this document represents components of the legal health record. It is not the complete legal health record.[facility]
--- OUTSIDE RECORDS SUMMARY | 2025-06-16 10:55 | XMS_ITS | Clinical Summary ---
Author Organization [facility] Address [address] [place] [id number] Phone Care Team Providers Care Security Investigator Name Role Phone Carolina Madison MD Primary Care Provider [phone] Aleshia Leonard MD Unavailable [phone] Bryn Dominguez MD Unavailabl e Ivonne Chicas APRN Unavailable [phone] Allergies Active Allergy Reactions Criticality Noted Date Comments Spice Flavor Throat Tightness Medium 02/16/2025 Isle Shortness Of Breath High 04/06/2025 Medications amiodarone [...] mouth daily. Take daily as instructed by [facility] clinic 150 tablet Active cyanocobalamin, vitamin B-12, 100 MCG tablet Take 100 mcg by mouth daily. Active cholecalciferol (VITAMIN D3) 400 unit tablet Take 400 Units by mouth daily. Active Medication-Free Text Probiotic takes daily Active ferrous sulfate 300 mg (60 mg ramona iron)/5mL syrup Take 300 mg by mouth daily. 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 No warfarin refill prescription needed at this time and patient is aware to call our office when one is needed INR yesterday was therapeutic at 2.3. Take warfarin 1 mg /Sat Next INR due 04/08/25 INR standing orders entered in chart and will be faxed to the following labs: [facility] [place] [phone] FAX [phone] [facility] [phone] Confirmed phone #[phone] (dtr Maciel) to be used when calling with anticoag instructions. Added this short story writer's name to Care Team Encounter for [...] INR goal 2.0-3.[address] Glez [facility] Cardiology Hypertensive disorder 01/18/2025 Severe aortic regurgitation 01/18/2025 Overview (04/28/2025): s/p AVR (21mm MagnaEase), ascending aorta replacement (26mm graft), LAAA and PFO closure with Dr. Leonard on 03/25/25 On amiodarone therapy 01/18/2025 Stage 4 chronic kidney disease 01/18/2025 Postoperative hypothyroidism 01/18/2025 Encounters Date Type Department Care Team Description 06/11/[address] [facility] Anticoagulation Clinic [address] [place] [address] Luanne Hernandez [facility] Anticoagulation 06/09/2025 Orders Only VIRTUAL DEPARTMENT Leader, Ivonne London APRN 06/01/[address] [facility]tico[facility] Clinic [address] [place] [address] Leader, Ivonne London APRN Anticoagulation 05/31/[address] [facility] Cardiology Clinic [address] [place] [address] Fallon Newberry RN endoscopy clearance 05/27/2025 2:20 PM EST Office Visit [facility] Rheumatology [facility] [address] [place] [address], 4th Floor, [address] [place] [address] Salvador Anaya MD Aortitis (Primary Dx) 05/26/[address] [facility] Anticoagulation Clinic [address] [place] [address] Luanne Hernandez, [facility] Anticoagulation 05/19/[address] [facility] Anticoagulation Clinic [address] [place] [address] Luanne Hernandez, [facility] Anticoagulation 05/17/[address] [facility] Anticoagulation [facility] [address] [place] [address] Ivonne Chicas APRN Established Patient 05/12/[address] [facility] Anticoagulation Clinic [address] [place] [address] Luanne Hernandez, [facility] Anticoagulation 05/11/2025 2:00 PM EST Office Visit [facility] Cardiac Surgery Clinic at the [facility] [address] [facility], 6th Floor, [address] [place] [address] Aleshia Leonard MD Status post cardiac surgery (Primary Dx) 05/11/2025 12:37 PM EST - 05/11/2025 11:59 PM EST Hospital Encounter [facility] Imaging - Emmanuel Berger [address] [facility], 2nd [place] [address] Aleshia Leonadr MD Discharge Disposition: Home or Self Care 05/07/2025 3:10 PM EST - 05/07/2025 11:59 PM EST Hospital Encounter [facility] - [place] [address] [facility], 6th [place] [address] Aleshia Leonard MD Discharge Disposition: Home or Self Care 05/03/[address] [facility] Anticoagulation Clinic [address] [place] [address] Ivonne Chicas APRN Anticoagulation 04/29/2025 1:30 PM EST Office Visit [facility] Cardiology Clinic [address] [address] Bryn Dominguez MD Miers, Cynthia Jane, NP Aneurysm of ascending aorta without rupture (Primary Dx); Hypertension, unspecified type; Severe aortic regurgitation 04/29/[address] [facility] Anticoagulation Clinic [address] [facility] [place] [address] Ivonne Chicas APRN Anticoagulation 04/29/2025 Telephone [facility] Cardiac Surgery Clinic at the [facility] [address] [facility], 6th Floor, [address] [place] [address] Aleshia Leonard MD 04/28/[address] [facility] Anticoagulation Clinic 19 [facility] [place] [address] Luanne Hernandez [facility] Established Patient 04/19/[address] [facility] Anticoagulation Clinic [address] [facility] [place] [address] Luanne Hernandez [facility] Anticoagulation 04/13/[address] [facility] Anticoagulation Clinic 19 [facility] [place] [address] Ivonne Chicas APRN Anticoagulation 04/08/[address] [facility] Anticoagulation Clinic 19 [facility] [place] [address] Ivonne Chicas APRN Anticoagulation 04/07/2025 Orders Only [facility] Cardiac Surgery [facility] at the [facility] [address] [facility], 6th Floor, [address] [place] [address] Aleshia Leonard MD 04/07/2025 Transcribe Orders [facility] [address] [facility], 5th [place] [address] Carolina Madison MD Dysphagia, unspecified type (Primary Dx) 04/06/2025 10:00 AM EDT Telemedicine - audio only 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 Cardiology [facility] [address] [id number] Fallon Newberry RN 04/01/2025 8:25 AM EDT Ancillary Procedure [facility] Imaging Bedside Ultrasound VRT [address] [place] [address] Dayana Hodgson MD Kreso, Antonia, MD 03/29/2025 Procedure Pass [facility] Cardiac Ultrasound [address] [place] [address] 03/28/2025 11:35 AM EDT Ancillary Procedure [facility] Imaging Bedside Ultrasound VRT [address] [place] [address] Juju Sibley CNP Kreso, Antonia, MD 03/25/2025 7:32 AM EDT Anesthesia Event [facility] PERIOPERATIVE DEPT [address] [place] [address] Say Mayo MD Jan, Daniela Nowak MD, MPH 03/25/2025 7:30 AM EDT - 03/25/2025 6:42 PM EDT Surgery [facility] PERIOPERATIVE DEPT [address] [place] [address] Aleshia Leonard MD ASCENDING AORTIC ANEURYSM GRAFT REPLACEMENT, PFO CLOSURE 03/25/2025 7:15 AM EDT Ancillary Procedure [facility] Imaging Bedside Ultrasound VRT [address] [place] [address] Say Mayo MD Kreso, Antonia, MD 03/25/2025 6:30 AM EDT Ancillary Procedure [facility] Imaging Bedside Ultrasound VRT [address] [place] [address] Say Mayo MD Kreso, Antonia, MD 03/25/2025 5:41 AM EDT - 04/05/2025 12:21 PM EDT Hospital Encounter [facility] [address] [place] [address] Aleshia Leonard MD Discharge Disposition: Home-Health Care [facility] 03/25/2025 Procedure Pass [facility] Cardiac Ultrasound [address] [place] [address] 03/25/2025 Procedure Pass [facility] PERIOPERATIVE DEPT [address] [place] [phone] 03/24/2025 Documentation [facility] at the [facility] [address] [facility], 6th Floor, [address] [place] [address] Shilpa Hummel RN from Last 3 Months Immunizations Immunization Administration [...] Sign Reading Time Taken Comments Blood Pressure 154/71 05/27/2025 2:45 PM EST Pulse 53 05/27/2025 2:45 PM EST Temperature 36.5 C (97.7 F) 05/27/2025 2:45 PM EST Respiratory Rate 16 05/11/2025 1:31 PM EST Oxygen Saturation 94% 05/27/2025 2:45 PM EST Inhaled Oxygen Concentration 50% 04/01/2025 1 :17 PM EDT Weight 73.5 kg (162 lb) 05/27/2025 2:45 PM EST Height 157.5 cm (5' 2 ) 04/29/2025 1:09 PM EST Body Mass Index 29.63 04/29/2025 1:09 PM EST Plan of Treatment Upcoming Encounters Date Type Department Care Team (Late st Contact Info) Description 06/01/2025 Procedure Pass [facility] Imaging - Pet Scan, Main [address] [place] [address] 06/29/2025 8:30 AM EST Office Visit [facility] Cardiology Clinic at the [facility] Heart [address], 5th Floor, [address] [place] [address] Geronimo Thompson MD [address] [facility] [address] [address] [email or web address] 06/30/2025 11:15 AM EST Appointment [facility] Imaging - Pet Scan, Main [address] [place] [address] Salvador Anaya MD [address] [place] [address] [phone] [email or web address] 07/02/2025 11:45 AM EST Office Visit [facility] Cardiology Clinic [address] [place] [address] Bryn Dominguez MD [address] [place] [address] [email or web address] 02/17/2026 3:20 PM EDT Office Visit [facility] Rheumatology Clinic [address] [place] [address], 4th Floor, [address] [place] [address] Salvador Anaya MD [address] [place] [phone] [email or web address] Health Maintenance Due Date Last Done Comments Adult Td,Tdap Booster 1945 DEPRESSION SCREENING 1957 HEPATITIS C SCREENING 09/04/1963 ZOSTER VACCINES (1 of 2) 09/04/1995 OSTEOPOROSIS SCREENING INITIAL (ONE-TIME) 2010 PNEUMOCOCCAL VACCINES (50+ years) (2 of 2 - PPSV23, PCV20, or PCV21) 11/16/2017 09/21/2017 RSV VACCINE (1 - 1-dose 75+ series) 2020 COVID-19 VACCINE ( - 2024- season) 2025 BLOOD PRESSURE 11/25/2025 05/27/2025 LIPID PANEL 01/18/2026 01/18/2025 TSH LEVEL 01/18/2026 [...] this topic Medical Devices Implanted Type Area Coupon Collection Clerk Device Identifier Shelf Expiration Date Model / Serial / Lot Valve Heart 21mm Perimount Magna Ease Bioprosthesis [place] Aortic Pericardial Thermafix - [id number] Implanted:Qty: 1 on 03/25/2025 by Aleshia Leonard MD at [facility] BONETISSUE N/A: Heart [employer] 11/27/2027 [id number] / [id number] / N/A Graft Vascular 42grc11al Vascutek Gelweave Polyester Woven Straight Aortic - [id number] Implanted:Qty: 1 on 03/25/2025 by Aleshia Leonard MD at [facility] SMDA N/A: Aorta [employer] 01/15/2028 [id number] / [id number] / [id number] Device Clip 35mmatriclip Flex V Jamee Malleable Shaft Sterile - [id number] Implanted:Qty: 1 on 03/25/2025 by Aleshia Leonard MD at [facility] N/A: Heart [employer] 11/16/2027 [id number] / / [id number] Procedures Procedure Name Priority Date/Time Associated Diagnosis Comments OUTSIDE LAB 06/11/2025 PT-INR 06/09/2025 11:09 AM EST PT-INR Routine 06/09/2025 PT-INR Routine 06/01/2025 SEDIMENTATION RATE (ESR) Routine 05/27/2025 4:22 PM EST Aortitis C-REACTIVE PROTEIN (CRP) Routine 05/27/2025 4:22 PM EST Aortitis PT-INR Routine 05/26/2025 PT-INR Routine 05/19/2025 PT-INR Routine 05/12/2025 XR CHEST PA AND LATERAL 2 VIEWS Routine 05/11/2025 12:45 PM EST Aneurysm of ascending aorta without rupture CT CHEST (VASCULAR NON-ANGIO) WITHOUT CONTRAST Routine 05/07/2025 4:09 PM EST Aneurysm of ascending aorta without rupture BASIC METABOLIC PANEL (BMP) Routine 04/29/2025 2:23 PM EST Severe aortic regurgitation CBC Routine 04/29/2025 2:23 PM EST Severe aortic regurgitation PT-INR Routine 04/29/2025 2:23 PM EST USP (current) use of anticoagulants Atrial fibrillation, unspecified type PT-INR Routine 04/19/2025 PT-INR Routine 04/13/2025 PT-INR Routine 04/08/2025 PREPARE RBC Routine 04/06/2025 12:37 AM EDT POCT GLUCOSE Routine 04/05/2025 8:02 AM EDT HC BLOOD TYPING SEROLOGIC ABO Routine 04/05/2025 5:36 AM EDT CBC Routine 04/05/2025 5:36 AM EDT BASIC METABOLIC PANEL (BMP) Routine 04/05/2025 5:36 AM EDT PT-INR Routine 04/05/2025 5:36 AM EDT MAGNESIUM Routine 04/05/2025 5:36 AM EDT ECG 12-LEAD Routine 04/05/2025 5:32 AM EDT POCT GLUCOSE Routine 04/04/2025 8:05 PM EDT OSMOLALITY (URINE, RANDOM) Routine 04/04/2025 6:29 PM EDT SODIUM, RANDOM URINE Routine 04/04/2025 6:29 PM EDT POCT GLUCOSE Routine 04/04/2025 5:36 PM EDT POCT GLUCOSE Routine 04/04/2025 12:16 PM EDT TRANSFUSE RED BLOOD CELLS Routine 04/04/2025 11:55 AM EDT POCT GLUCOSE Routine 04/04/2025 8:02 AM EDT ECG 12-LEAD Routine 04/04/2025 6:36 AM EDT ECG 12-LEAD Routine 04/04/2025 6:36 AM EDT CBC Routine 04/04/2025 6:18 AM EDT BASIC METABOLIC PANEL (BMP) Routine 04/04/2025 6:18 AM EDT PT-INR Routine [...] AM EDT BASIC METABOLIC PANEL (BMP) Routine 04/03/2025 5:03 AM EDT PT-INR Routine [...] AM EDT BASIC METABOLIC PANEL (BMP) Routine 04/02/2025 4:33 AM EDT CREAT. COMMENT Routine 04/02/2025 12:34 AM EDT PTT Routine 04/02/2025 12:34 AM EDT PT-INR Routine 04/02/2025 12:34 AM EDT CBC Routine 04/02/2025 12:34 AM EDT BASIC METABOLIC PANEL (BMP) Routine 04/02/2025 12:34 AM EDT MAGNESIUM Routine [...] PM EDT BASIC METABOLIC PANEL (BMP) Routine 04/01/2025 4:55 PM EDT POTASSIUM (BLOOD GAS) STAT 04/01/2025 12:48 PM EDT GLUCOSE (BLOOD GAS) STAT 04/01/2025 12:48 PM EDT SEROLOGY COMMENT Routine 04/01/2025 11:43 AM EDT RESPIRATORY PATHOGEN PCR PANEL Routine 04/01/2025 11:43 AM EDT MICROBIOLOGY ADD ON Routine 04/01/2025 10:52 AM EDT POCT GLUCOSE Routine 04/01/2025 9:20 AM EDT CREAT. COMMENT Routine 04/01/2025 9:00 AM EDT PHOSPHORUS Routine 04/01/2025 9:00 AM EDT MAGNESIUM Routine 04/01/2025 9:00 AM EDT BASIC METABOLIC PANEL (BMP) Routine 04/01/2025 9:00 AM EDT CYSTATIN C WITH ESTIMATED GLOMERULAR FILTRATION RATE (EGFR) Routine 04/01/2025 9:00 AM EDT US BEDSIDE Routine 04/01/2025 8:20 AM EDT POCT GLUCOSE Routine 04/01/2025 3:49 AM EDT XR CHEST PORTABLE Routine 04/01/2025 3:3 5 AM EDT CREAT. COMMENT Routine 04/01/2025 3:35 AM EDT MAGNESIUM Routine 04/01/2025 3:35 AM EDT PT-INR Routine 04/01/2025 3:35 AM EDT PTT Routine 04/01/2025 3:35 AM EDT CREATININE (RANDOM URINE) Routine 04/01/2025 3:35 AM EDT UREA NITROGEN, RANDOM URINE Routine 04/01/2025 3:35 AM EDT BASIC METABOLIC PANEL (BMP) Routine 04/01/2025 3:35 AM EDT POCT GLUCOSE Routine 04/01/2025 2:47 AM EDT LACTATE (BLOOD GAS) Routine 04/01/2025 2 :42 AM EDT GLUCOSE (BLOOD GAS) STAT 04/01/2025 2 :42 AM EDT POCT GLUCOSE Routine 04/01/2025 1:31 AM EDT CREAT. COMMENT Routine 04/01/2025 12:58 AM EDT PHOSPHORUS Routine 04/01/2025 12:58 AM EDT MAGNESIUM Routine 04/01/2025 12:58 AM EDT BASIC METABOLIC PANEL (BMP) Routine 04/01/2025 12:58 AM EDT HC BLOOD TYPING SEROLOGIC ABO Routine 04/01/2025 12:35 AM EDT CREAT. COMMENT Routine 04/01/2025 12:22 AM EDT CBC Routine 04/01/2025 12:22 AM EDT PT-INR Routine 04/01/2025 12:22 AM EDT PTT Routine 04/01/2025 12:22 AM EDT BASIC METABOLIC PANEL (BMP) Routine 04/01/2025 12:22 AM EDT MAGNESIUM Routine [...] PM EDT BASIC METABOLIC PANEL (BMP) Routine 03/31/2025 11:56 PM EDT POTASSIUM (BLOOD GAS) STAT 03/31/2025 11:56 PM EDT IONIZED CALCIUM STAT 03/31/2025 11:56 PM EDT GLUCOSE (BLOOD GAS) STAT 03/31/2025 11:56 PM EDT POCT GLUCOSE Routine 03/31/2025 10:39 PM EDT ECG 12-LEAD Routine 03/31/2025 9:36 PM EDT CREAT. COMMENT Routine 03/31/2025 9:32 PM EDT BASIC METABOLIC PANEL (BMP) Routine 03/31/2025 9:32 PM EDT POCT GLUCOSE Routine 03/31/2025 9:30 PM EDT POCT GLUCOSE Routine 03/31/2025 8:31 PM EDT CREAT. COMMENT Routine 03/31/2025 8:25 PM EDT PHOSPHORUS Routine 03/31/2025 8:25 PM EDT MAGNESIUM Routine 03/31/2025 8:25 PM EDT BASIC METABOLIC PANEL (BMP) Routine 03/31/2025 8:25 PM EDT CREAT. COMMENT Routine 03/31/2025 3:50 PM EDT PHOSPHORUS Routine 03/31/2025 3:50 PM EDT MAGNESIUM Routine 03/31/2025 3:50 PM EDT BASIC METABOLIC PANEL (BMP) Routine 03/31/2025 3:50 PM EDT VENOUS BLOOD [...] AM EDT BASIC METABOLIC PANEL (BMP) Routine 03/31/2025 12:10 AM EDT CBC Routine 03/31/2025 12:10 AM EDT LACTATE (BLOOD GAS) Routine 03/31/2025 12:10 AM EDT OXYGEN SATURATION, MIXED VENOUS Routine 03/31/2025 12:10 AM EDT VENOUS BLOOD GAS PLUS Routine 03/31/2025 12:10 AM EDT XR CHEST PORTABLE Routine 03/30/2025 9:0 0 PM EDT OXYGEN SATURATION, MIXED VENOUS Routine 03/30/2025 8:18 PM EDT POCT GLUCOSE Routine 03/30/2025 8:00 PM EDT OXYGEN SATURATION, MIXED VENOUS Routine 03/30/2025 8:00 PM EDT LACTATE (BLOOD GAS) Routine 03/30/2025 8 :00 PM EDT VENOUS BLOOD GAS PLUS Routine 03/30/2025 8:00 PM EDT POCT GLUCOSE Routine 03/30/2025 5:30 PM EDT MAGNESIUM Routine 03/30/2025 3:07 PM EDT VENOUS BLOOD GAS PLUS Routine 03/30/2025 3:07 PM EDT BASIC METABOLIC PANEL (BMP) Routine 03/30/2025 3:07 PM EDT TTE COMPREHENSIVE W/ AGITATED SALINE Routine 03/30/2025 2:30 PM EDT Acute [...] AM EDT BASIC METABOLIC PANEL (BMP) Routine 03/30/2025 8:48 AM EDT CBC Routine 03/30/2025 8:48 AM EDT PTT Routine 03/30/2025 5:36 AM EDT PT-INR Routine 03/30/2025 5:36 AM EDT ECG 12-LEAD Routine 03/30/2025 5:33 AM EDT LACTATE (BLOOD GAS) Routine 03/30/2025 2:45 AM EDT ARTERIAL BLOOD GAS PLUS Routine 03/30/2025 2:45 AM EDT LFTS (HEPATIC PANEL) Routine 03/29/2025 11:43 PM EDT PHOSPHORUS Routine 03/29/2025 11:43 PM EDT MAGNESIUM Routine 03/29/2025 11:43 PM EDT BASIC METABOLIC PANEL (BMP) Routine 03/29/2025 11:43 PM EDT CBC Routine 03/29/2025 11:43 PM EDT ARTERIAL BLOOD GAS PLUS Routine 03/29/2025 10:05 PM EDT LACTATE (BLOOD GAS) Routine 03/29/2025 10:05 PM EDT XR CHEST PORTABLE Routine 03/29/2025 9:1 0 PM EDT ARTERIAL BLOOD GAS PLUS Routine 03/29/2025 3:59 PM EDT LACTATE (BLOOD GAS) Routine 03/29/2025 3 :59 PM EDT LFTS (HEPATIC PANEL) Routine 03/29/2025 3:59 PM EDT PHOSPHORUS Routine 03/29/2025 3:59 PM EDT MAGNESIUM Routine 03/29/2025 3:59 PM EDT BASIC METABOLIC PANEL (BMP) Routine 03/29/2025 3:59 PM EDT CBC Routine 03/29/2025 3:59 PM EDT LACTATE (BLOOD GAS) Routine 03/29/2025 11:38 AM EDT ARTERIAL BLOOD GAS PLUS Routine 03/29/2025 11:38 AM EDT LACTATE (BLOOD GAS) Routine 03/29/2025 7 :13 AM EDT ARTERIAL BLOOD GAS PLUS Routine 03/29/2025 7:13 AM EDT ECG 12-LEAD Routine 03/29/2025 7:08 AM EDT COVID PANDEMIC RESPIRATORY VIRAL ORDER (PRO) Routine 03/29/2025 5:16 AM EDT XR CHEST PORTABLE Routine 03/29/2025 4:2 7 AM EDT CREAT. COMMENT Routine 03/29/2025 2:40 AM EDT ARTERIAL BLOOD GAS PLUS Routine 03/29/2025 2:40 AM EDT LACTATE (BLOOD GAS) Routine 03/29/2025 2 :40 AM EDT LFTS (HEPATIC PANEL) Routine 03/29/2025 2:40 AM EDT PHOSPHORUS Routine 03/29/2025 2:40 AM EDT MAGNESIUM Routine 03/29/2025 2:40 AM EDT BASIC METABOLIC PANEL (BMP) Routine 03/29/2025 2:40 AM EDT PTT Routine 03/29/2025 2:40 AM EDT PT-INR Routine 03/29/2025 2:40 AM EDT CBC Routine 03/29/2025 2:40 AM EDT MICROBIOLOGY ADD ON Routine 03/29/2025 12:20 AM EDT ARTERIAL BLOOD GAS PLUS Routine 03/28/2025 10:40 PM EDT XR CHEST PORTABLE Timed 03/28/2025 9:4 9 PM EDT ARTERIAL BLOOD GAS PLUS Routine 03/28/2025 5:14 PM EDT POTASSIUM (BLOOD GAS) STAT 03/28/2025 4:21 PM EDT COVID PANDEMIC RESPIRATORY VIRAL ORDER (PRO) Routine 03/28/2025 3:35 PM EDT INFLUENZA A/B, RSV, PCR Routine 03/28/2025 3:35 PM EDT INSERT ARTERIAL LINE Routine 03/28/2025 3:10 PM EDT Acute hypoxic respiratory failure CREAT. COMMENT Routine 03/28/2025 2:50 PM EDT ARTERIAL BLOOD GAS PLUS Routine 03/28/2025 2:50 PM EDT MAGNESIUM Routine 03/28/2025 2:50 PM EDT BASIC METABOLIC PANEL (BMP) Routine 03/28/2025 2:50 PM EDT US BEDSIDE Routine 03/28/2025 11:31 AM EDT CREAT. COMMENT Routine 03/28/2025 7:59 AM EDT MAGNESIUM Routine 03/28/2025 7:59 AM EDT BASIC METABOLIC PANEL (BMP) Routine 03/28/2025 7:59 AM EDT ECG 12-LEAD Routine 03/28/2025 7:42 AM EDT URINE SEDIMENT Routine 03/28/2025 7:41 AM EDT MICROALBUMIN, URINE Routine 03/28/2025 7 :41 AM EDT MICROALBUMIN/CREATIN INE, RANDOM URINE Routine 03/28/2025 7:41 AM EDT CBC Routine 03/28/2025 7:41 AM EDT HEPARIN PF4 ANTIBODY (HIT) Routine 03/28/2025 7:41 AM EDT FREE LIGHT CHAINS, SERUM Routine 03/28/2025 7:41 AM EDT SPEP PANEL Routine 03/28/2025 [...] AM EDT BASIC METABOLIC PANEL (BMP) Routine 03/28/2025 2:02 AM EDT PTT Routine 03/28/2025 2:02 AM EDT PT-INR Routine 03/28/2025 2:02 AM EDT CBC Routine 03/28/2025 2:02 AM EDT HC BLOOD TYPING SEROLOGIC ABO Routine 03/28/2025 2:02 AM EDT XR CHEST PORTABLE Timed 03/27/2025 10:44 PM EDT LACTATE (BLOOD GAS) Routine 03/27/2025 10:20 PM EDT ARTERIAL BLOOD GAS PLUS Routine 03/27/2025 10:20 PM EDT ARTERIAL BLOOD GAS PLUS Routine 03/27/2025 4:50 PM EDT LACTATE (BLOOD GAS) Routine 03/27/2025 4 :50 PM EDT CBC Routine 03/27/2025 12:28 PM EDT LACTATE (BLOOD GAS) Routine 03/27/2025 12:28 PM EDT ARTERIAL BLOOD GAS PLUS Routine 03/27/2025 12:28 PM EDT PREPARE RBC Routine 03/27/2025 8:55 AM EDT LACTATE (BLOOD GAS) Routine 03/27/2025 7 :24 AM EDT ARTERIAL BLOOD GAS PLUS Routine 03/27/2025 7:24 AM EDT ECG 12-LEAD Routine 03/27/2025 7:23 AM EDT PTT Routine 03/27/2025 6:17 AM EDT PT-INR Routine 03/27/2025 6:17 AM EDT CREAT. COMMENT Routine 03/27/2025 2:10 AM EDT LFTS (HEPATIC PANEL) Routine 03/27/2025 2:10 AM EDT PHOSPHORUS Routine 03/27/2025 2:10 AM EDT MAGNESIUM Routine 03/27/2025 2:10 AM EDT BASIC METABOLIC PANEL (BMP) Routine 03/27/2025 2:10 AM EDT CBC Routine 03/27/2025 2:10 AM EDT ARTERIAL BLOOD GAS PLUS Routine 03/27/2025 2:10 AM EDT ARTERIAL BLOOD GAS PLUS Routine 03/26/2025 11:25 PM EDT LACTATE (BLOOD GAS) Routine 03/26/2025 10:38 PM EDT ARTERIAL BLOOD GAS PLUS Routine 03/26/2025 10:38 PM EDT ARTERIAL BLOOD GAS PLUS Routine 03/26/2025 9:44 PM EDT OXYGEN SATURATION, ARTERIAL STAT 03/26/2025 9:32 PM EDT XR CHEST PORTABLE Timed 03/26/2025 8:4 8 PM EDT LACTIC ACID (LACTATE) Routine 03/26/2025 3:35 PM EDT LFTS (HEPATIC PANEL) Routine 03/26/2025 3:35 PM EDT PHOSPHORUS Routine 03/26/2025 3:35 PM EDT MAGNESIUM Routine 03/26/2025 3:35 PM EDT BASIC METABOLIC PANEL (BMP) Routine 03/26/2025 3:35 PM EDT CBC Routine 03/26/2025 3:35 PM EDT POCT GLUCOSE Routine 03/26/2025 1:11 PM EDT POCT GLUCOSE Routine 03/26/2025 12:18 PM EDT PHOSPHORUS Routine 03/26/2025 10:23 AM EDT MAGNESIUM Routine 03/26/2025 10:23 AM EDT BASIC METABOLIC PANEL (BMP) Routine 03/26/2025 10:23 AM EDT LACTATE (BLOOD GAS) Routine 03/26/2025 10:23 AM EDT ARTERIAL BLOOD GAS PLUS Routine 03/26/2025 10:23 AM EDT POCT GLUCOSE Routine 03/26/2025 8:37 AM EDT POCT GLUCOSE Routine 03/26/2025 7:38 AM EDT ECG 12-LEAD Routine 03/26/2025 7:19 AM EDT POCT GLUCOSE Routine 03/26/2025 6:33 AM EDT POCT GLUCOSE Routine 03/26/2025 5:46 AM EDT ARTERIAL BLOOD GAS PLUS Routine 03/26/2025 5:46 AM EDT LACTATE (BLOOD GAS) Routine 03/26/2025 5 :09 AM EDT ARTERIAL BLOOD GAS PLUS Routine 03/26/2025 5:09 AM EDT POCT GLUCOSE Routine 03/26/2025 4:38 AM EDT OXYGEN SATURATION, MIXED VENOUS Routine 03/26/2025 3:38 AM EDT POCT GLUCOSE Routine 03/26/2025 3:29 AM EDT ARTERIAL BLOOD GAS PLUS Routine 03/26/2025 3:10 AM EDT LACTATE (BLOOD GAS) Routine 03/26/2025 3 :10 AM EDT LFTS (HEPATIC PANEL) Routine 03/26/2025 3:10 AM EDT PHOSPHORUS Routine 03/26/2025 3:10 AM EDT MAGNESIUM Routine 03/26/2025 3:10 AM EDT BASIC METABOLIC PANEL (BMP) Routine 03/26/2025 3:10 AM EDT PTT Routine 03/26/2025 3:10 AM EDT PT-INR Routine 03/26/2025 3:10 AM EDT FIBRINOGEN Routine 03/26/2025 3:10 AM EDT CBC Routine 03/26/2025 3:10 AM EDT XR CHEST PORTABLE Routine 03/26/2025 2:4 9 AM EDT POCT GLUCOSE Routine 03/26/2025 1:52 AM EDT POCT GLUCOSE Routine 03/26/2025 12:55 AM EDT LACTATE (BLOOD GAS) Routine 03/26/2025 12:01 AM EDT ARTERIAL BLOOD GAS PLUS Routine 03/26/2025 12:01 AM EDT POCT GLUCOSE Routine 03/25/2025 11:59 PM EDT LACTATE (BLOOD GAS) Routine 03/25/2025 10:28 PM EDT ARTERIAL BLOOD GAS PLUS Routine 03/25/2025 10:28 PM EDT LACTATE (BLOOD GAS) Routine 03/25/2025 9 :18 PM EDT ARTERIAL BLOOD GAS PLUS Routine 03/25/2025 9:18 PM EDT POCT GLUCOSE Routine 03/25/2025 9:15 PM EDT PHOSPHORUS Routine 03/25/2025 8:13 PM EDT MAGNESIUM Routine 03/25/2025 8:13 PM EDT LACTATE (BLOOD GAS) Routine 03/25/2025 8 :13 PM EDT ARTERIAL BLOOD GAS PLUS Routine 03/25/2025 8:13 PM EDT POCT GLUCOSE Routine 03/25/2025 8:12 PM EDT POCT GLUCOSE Routine 03/25/2025 7:00 PM EDT ARTERIAL BLOOD GAS PLUS Routine 03/25/2025 6:33 PM EDT LACTATE (BLOOD GAS) Routine 03/25/2025 5 :59 PM EDT ARTERIAL BLOOD GAS PLUS Routine 03/25/2025 5:59 PM EDT LACTATE (BLOOD GAS) Routine 03/25/2025 5 :00 PM EDT ARTERIAL BLOOD GAS PLUS Routine 03/25/2025 5:00 PM EDT OXYGEN SATURATION, MIXED VENOUS Routine 03/25/2025 3:15 PM EDT ARTERIAL BLOOD GAS PLUS Routine 03/25/2025 3:04 PM EDT LACTATE (BLOOD GAS) Routine 03/25/2025 3 :04 PM EDT XR CHEST PORTABLE Routine 03/25/2025 3:0 1 PM EDT ARTERIAL BLOOD GAS PLUS Routine 03/25/2025 1:45 PM EDT OXYGEN SATURATION, MIXED VENOUS Routine 03/25/2025 1:45 PM EDT LACTATE (BLOOD GAS) Routine 03/25/2025 1 :45 PM EDT LFTS (HEPATIC PANEL) Routine 03/25/2025 1:45 PM EDT PHOSPHORUS Routine 03/25/2025 1:45 PM EDT MAGNESIUM Routine 03/25/2025 1:45 PM EDT BASIC METABOLIC PANEL (BMP) Routine 03/25/2025 1:45 PM EDT PTT Routine 03/25/2025 1:45 PM EDT PT-INR Routine 03/25/2025 1:45 PM EDT FIBRINOGEN Routine 03/25/2025 1:45 PM EDT CBC Routine 03/25/2025 1:45 PM EDT VANCOMYCIN RESISTANT ENTEROCOCCI (VRE) RECTAL SCREEN Routine 03/25/2025 1:45 PM EDT MRSA NASAL SCREEN Routine 03/25/2025 1:4 5 PM EDT EXTUBATION Routine 03/25/2025 1:44 PM EDT CB COMP PROBE PLACED BY ANES W/ COLOR FLOW AND COMP DOPPLER Routine 03/25/2025 1:23 PM EDT Aortic valve stenosis with insufficiency, etiology of cardiac valve disease unspecified POCT ACTFROM CARDIAC OR Routine 03/25/2025 12:39 PM EDT POCT HEPARIN PROTAMINE TITRATION Routine 03/25/2025 12:39 PM EDT FIBRINOGEN STAT 03/25/2025 12:32 PM EDT PTT STAT 03/25/2025 12:32 PM EDT PT-INR STAT 03/25/2025 12:32 PM EDT CBC STAT 03/25/2025 12:32 PM EDT LACTATE (BLOOD GAS) STAT 03/25/2025 12:32 PM EDT ARTERIAL BLOOD GAS PLUS STAT 03/25/2025 12:32 PM EDT POCT ACTFROM CARDIAC OR Routine 03/25/2025 11:52 AM EDT POCT HEPARIN PROTAMINE TITRATION Routine 03/25/2025 11:52 AM EDT PUMP BLOOD GAS PLUS STAT 03/25/2025 11:44 AM EDT LACTATE (BLOOD GAS) STAT 03/25/2025 11:44 AM EDT POCT ACTFROM CARDIAC OR Routine 03/25/2025 11:24 AM EDT POCT HEPARIN PROTAMINE TITRATION Routine 03/25/2025 11:24 AM EDT PUMP BLOOD GAS PLUS STAT 03/25/2025 11:17 AM EDT LACTATE (BLOOD GAS) STAT 03/25/2025 11:17 AM EDT POCT ACTFROM CARDIAC OR Routine 03/25/2025 10:54 AM EDT POCT HEPARIN PROTAMINE TITRATION Routine 03/25/2025 10:54 AM EDT PUMP BLOOD GAS PLUS STAT 03/25/2025 10:47 AM EDT LACTATE (BLOOD GAS) STAT 03/25/2025 10:47 AM EDT ANATOMIC PATHOLOGY Routine 03/25/2025 10:37 AM EDT POCT ACTFROM CARDIAC OR Routine 03/25/2025 10:22 AM EDT POCT HEPARIN PROTAMINE TITRATION Routine 03/25/2025 10:22 AM EDT PUMP BLOOD GAS PLUS STAT 03/25/2025 10:17 AM EDT LACTATE (BLOOD GAS) STAT 03/25/2025 10:17 AM EDT POCT ACTFROM CARDIAC OR Routine 03/25/2025 9:56 AM EDT POCT HEPARIN PROTAMINE TITRATION Routine 03/25/2025 9:56 AM EDT PUMP BLOOD GAS PLUS STAT 03/25/2025 9 :47 AM EDT LACTATE (BLOOD GAS) STAT 03/25/2025 9 :47 AM EDT POCT ACTFROM CARDIAC OR Routine 03/25/2025 9:28 AM EDT POCT HEPARIN PROTAMINE TITRATION Routine 03/25/2025 9:28 AM EDT PUMP BLOOD GAS PLUS STAT 03/25/2025 9 :21 AM EDT VENOUS BLOOD GAS PLUS STAT 03/25/2025 9:21 AM EDT LACTATE (BLOOD GAS) STAT 03/25/2025 9 :21 AM EDT POCT ACTFROM CARDIAC OR Routine 03/25/2025 9:12 AM EDT POCT ACTFROM CARDIAC OR Routine 03/25/2025 8:59 AM EDT POCT HEPARIN PROTAMINE TITRATION Routine 03/25/2025 8:59 AM EDT ANES VIP PLUS CATH - CENTRAL PA LINE Routine 03/25/2025 8:36 AM EDT ANES DOUBLE LUMEN SHEATH - PA LINE Routine 03/25/2025 8:36 AM EDT [place] INSERT/PLACE FLOW DIRECT CATH PERF Routine 03/25/2025 8:36 AM EDT [place] ECHO HEART TRANSESOPH PROBE PLACEMT PERF Routine 03/25/2025 8:36 AM EDT [place] INSERT CATH ART PERCUT SHORTTERM PERF Routine 03/25/2025 8:35 AM EDT POCT HEPARIN DOSE RESPONSE Routine 03/25/2025 7:55 AM EDT AIRWAY PLACEMENT Routine 03/25/2025 7:46 AM EDT POCT HEPARIN DOSE RESPONSE Routine 03/25/2025 7:45 AM EDT BASIC METABOLIC PANEL (BMP) STAT 03/25/2025 7:42 AM EDT LACTATE (BLOOD GAS) STAT 03/25/2025 7 :42 AM EDT ARTERIAL BLOOD GAS PLUS STAT 03/25/2025 7:42 AM EDT [place] VALVULOPLASTY AORTIC VALVE OPEN CARD BYP SIMPLE 03/25/2025 7:32 AM EDT Aortic valve insufficiency, etiology of cardiac valve disease unspecified Ascending aortic aneurysm, unspecified whether ruptured Atrial fibrillation, unspecified type Special Needs CPT Code(s):AscAoAneurysm Graft Replacement-- [id number]-- [id number] (Tissue)-- 73263 [place] EXCLUSION JAMEE OPEN TM STRNT/THRCM ANY METHOD 03/25/2025 7:32 AM EDT Aortic valve insufficiency, etiology of cardiac valve disease unspecified Ascending aortic aneurysm, unspecified whether ruptured Atrial fibrillation, unspecified type Special Needs CPT Code(s):AscAoAneurysm Graft Replacement-- [id number]-- [id number] (Tissue)-- 20098 [place] -AORT GRF W/CARD BYP F/AORTIC DS OTH/THN DSJ 03/25/2025 7:32 AM EDT Aortic valve insufficiency, etiology of cardiac valve disease unspecified Ascending aortic aneurysm, unspecified whether ruptured Atrial fibrillation, unspecified type Special Needs CPT Code(s):AscAoAneurysm Graft Replacement-- [id number]-- [id number] (Tissue)-- 67901 ANESTHESIA POINT OF CARE IMAGE CAPTURE Routine 03/25/2025 7:13 AM EDT ANESTHESIA POINT OF CARE IMAGE CAPTURE Routine 03/25/2025 6:28 AM EDT LIPID PROFILE WITH DIRECT LDL Routine 01/18/2025 1:43 PM EDT Aneurysm of ascending aorta without rupture Preoperative cardiovascular examination TSH WITH REFLEX Routine 01/18/2025 1:43 PM EDT Hypothyroidism, unspecified type Preoperative cardiovascular examination from Last 3 Months or Most Recently Relevant to Health Maintenance Results * Outside Lab (Non-MGB) (06/11/2025) us Scanning Interface Provider LAB BLOOD BKR ORDERA BLES Final Result * (ABNORMAL) PT-INR (06/09/2025 11:09 AM EST) Only the most recent of24 resultswithin the time period is included. INR 1.9(H) 0.9 - 1.1 [facility] Prothrombin Time 18.8(H) 9.2 - 11.4 SEC [facility] 06/09/2025 11:0 9 AM EST 06/09/2025 Narrative [facility] - 06/12/2025 8:05 AM EST Performed at: [address] - [address] [id number] [employer]: Jovanni Egan MD, Phone: [phone] Specimen Comment: A duplicate report has been generated due to demographic updates. us Ivonne Chicas APRN LAB BLOOD BKR ORDERABLES Fin al Result [facility] * Erythrocyte Sedimentation Rate (ESR) (05/27/2025 4:22 PM EST) ESR 22 0 - 30 mm/h 05/27/2025 6:51 PM EST [facility] Blood (Blood) Venipuncture / Unknown 05/27/2025 4:22 PM EST 05/27/2025 4:23 PM EST Salvador Anaya MD LAB BLOOD BKR ORDERABLES Final Result Performing Organization Address [facility] Co de Phone Number [address] [address] * (ABNORMAL) C-Reactive Protein (CRP) (05/27/2025 4:22 PM EST) C Reactive Protein 15.7(H) <10.0 mg/L 05/27/2025 7:36 PM EST [facility] Comment:NOTE: This reference range is for the evaluation of inflammation. Order CRP, High Sensitivity for cardiac risk status evaluation. Blood (Blood) Venipuncture / Unknown 05/27/2025 4:22 PM EST 05/27/2025 4:23 PM EST Salvador Anaya MD LAB BLOOD BKR ORDERABLES Final Result Performing Organization Address [facility] Co de Phone Number [address] [address] * XR CHEST PA AND LATERAL 2 VIEWS (05/11/2025 12:45 PM EST) Anatomical Region Laterality Modality Chest Computed Radiogr aphy 05/11/2025 1:37 PM EST Impressions 05/11/2025 3:14 PM EST Postsurgical changes consistent with recent cardiac surgery. No pulmonary edema or pneumonia. Trace right pleural effusion. No pneumothorax. Narrative 05/11/2025 3:14 PM EST XR CHEST PA AND LATERAL 2 VIEWS Referring clinician's provided indication for this examination in [facility]: Post-Op; 03/25: AVR and ascending aortic graft COMPARISON: XR CHEST PA AND LATERAL 2 VIEWS 2024- FINDINGS: Devices/Tubes/Lines: None. Lungs: Clear lungs. No pulmonary edema or pneumonia.. Pleura: Trace right pleural effusion. No pneumothorax or left pleural effusion.. Heart/Mediastinum: Postsurgical changes consistent with cardiac/aortic surgery with aortic valve replacement. A left atrial appendage ligation clip is present. Bones/Soft Tissues: Status post sternotomy. No significant skeletal abnormality. Procedure Note Dominik Dowell MD - 05/11/2025 XR CHEST PA AND LATERAL 2 VIEWS Referring clinician's provided indication for this examination in [facility]:Post-Op; 03/25: AVR and ascending aortic graft COMPARISON: XR CHEST PA AND LATERAL 2 VIEWS FINDINGS: Devices/Tubes/Lines: None. Lungs: Clear lungs. No pulmonary edema or pneumonia.. Pleura: Trace right pleural effusion. No pneumothorax or left pleuraleffusion.. Heart/Mediastinum: Postsurgical changes consistent with cardiac/aorticsurgery with aortic valve replacement. A left atrial appendage ligationclip is present. Bones/Soft Tissues: Status post sternotomy. No significant skeletalabnormality. IMPRESSION: Postsurgical changes consistent with recent cardiac surgery. No pulmonary edema or pneumonia. Trace right pleural effusion. No pneumothorax. us Aleshia Leonard MD IMG XR CHEST Final Result * CT CHEST (VASCULAR NON-ANGIO) WITHOUT CONTRAST (05/07/2025 4:09 PM EST) Anatomical Region Laterality Modality Chest, Thoracic Vasculature Comp uted Tomography 05/15/2025 1:19 PM EST Impressions 05/15/2025 1:38 PM EST * Allowing for the noncontrast technique, unremarkable postoperative appearance status post aortic valvular and ascending aortic replacement with left atrial appendage amputation clip. * Persistent dilatation of the [place] thoracic aorta (distal ascending above graft 4.4 cm, arch 3.2 cm, descending 3.1 cm) * Incidental relatively high attenuation of the liver, which can be seen with amiodarone use. Narrative 05/15/2025 1:[address] CHEST (VASCULAR NON-ANGIO) WITHOUT CONTRAST Referring clinician's provided indication for this examination in [facility]: * Thoracic aorta disease, post repair; S/p ascending aorta replacement, routine follow up imaging. COMPARISON: MRI ANGIO CHEST WITHOUT CONTRAST TECHNIQUE: Multidetector-row CT of the chest was performed without intravenous contrast using tailored dose modulation techniques. Images were reconstructed in the axial, coronal, and sagittal planes, including angiographic image post-processing. VASCULAR FINDINGS: ASSESSMENT OF VASCULAR AND NONVASCULAR PATHOLOGY IS SIGNIFICANTLY LIMITED BY LACK OF INTRAVENOUS CONTRAST. ARTERIES: Thoracic aorta: The patient is status post aortic valve and ascending aortic replacement. A left atrial appendage amputation clip is noted. There is also history of PFO closure, though that is not visible on the CT. There is a small amount of fluid around the surgical bed, within the range of expected. Pseudoaneurysm or leak cannot be assessed on noncontrast CT. [place] ascending thoracic aorta, arch, and descending thoracic aorta beyond the graft remain dilated. There is a left-sided 3 vessel arch. Coronary arteries: Moderate amount of coronary arterial calcification. Measurements are as follows (largest diameter short-axis to the centerline): Sinus of Valsalva: 3.4 x 3.4 x 3.1 Ascending aorta ([place] distal above graft): 4.4 x 4.1 cm Aortic arch: 3.2 x 3.0 cm Descending aorta: 3.1 x 2.9 cm There is dilatation of the right brachiocephalic artery. The arch arteries are otherwise normal in caliber. VENOUS: Lack of contrast administration precludes venous evaluation. NON VASCULAR FINDINGS: Devices/Tubes/Lines: None. Lungs: The central airways are patent. There is mild dependent, right middle lobe, lingular lung atelectasis. There is diffuse bronchial wall thickening. There are scattered calcified lung granulomas. Subpleural fibrotic changes in the left upper lobe, consistent with provided history of left breast cancer status post radiation therapy. Lung abnormalities limits sensitivity for small lung nodules. Pleura: Trace bilateral pleural effusions. No pneumothorax. Mediastinum: Postoperative changes as above. Dilated left ventricle and left atrium. Mitral annular calcification. No pericardial effusion. Small hiatal hernia. Lymph Nodes: No lymphadenopathy is identified. Upper Abdomen: Diffusely high attenuation of the liver, which can be seen with amiodarone use. Chest Wall: Surgical clips from left breast surgery. Median sternotomy. Bones/Soft Tissues: Sternotomy wires appear intact. No suspicious destructive osseous lesions. Osteopenia. Procedure Note Armin Hoffmann MD, MPH - 05/15/2025 CT CHEST (VASCULAR NON-ANGIO) WITHOUT CONTRAST Referring clinician's provided indication for this examination in [employer]: *Thoracic aorta disease, post repair; S/p ascending aorta replacement,routine follow up imaging. COMPARISON: MRI ANGIO CHEST WITHOUT CONTRAST TECHNIQUE: Multidetector-row CT of the chest was performed withoutintravenous contrast using tailored dose modulation techniques. Imageswere reconstructed in the axial, coronal, and sagittal planes, includingangiographic image post- processing. VASCULAR FINDINGS: ASSESSMENT OF VASCULAR AND NONVASCULAR PATHOLOGY IS SIGNIFICANTLY LIMITEDBY LACK OF INTRAVENOUS CONTRAST. ARTERIES: Thoracic aorta: The patient is status post aortic valve and ascendingaortic replacement. A left atrial appendage amputation clip is noted.There is also history of PFO closure, though that is not visible on theCT. There is a small amount of fluid around the surgical bed, within the rangeof expected. Pseudoaneurysm or leak cannot be assessed on noncontrastCT. [place] ascending thoracic aorta, arch, and descending thoracic aortabeyond the graft remain dilated. There is a left-sided 3 vessel arch. Coronary arteries: Moderate amount of coronary arterial calcification. Measurements are as follows (largest diameter short-axis to thecenterline): Sinus of Valsalva: 3.4 x 3.4 x 3.1 Ascending aorta ([place] distal above graft): 4.4 x 4.1 cm Aortic arch: 3.2 x 3.0 cm Descending aorta: 3.1 x 2.9 cm There is dilatation of the right brachiocephalic artery. The arch arteriesare otherwise normal in caliber. VENOUS: Lack of contrast administration precludes venous evaluation. NON VASCULAR FINDINGS: Devices/Tubes/Lines: None. Lungs: The central airways are patent. There is mild dependent, rightmiddle lobe, lingular lung atelectasis. There is diffuse bronchial wallthickening. There are scattered calcified lung granulomas. Subpleuralfibrotic changes in the left upper lobe, consistent with provided historyof left breast cancer status post radiation therapy. Lung abnormalitieslimits sensitivity for small lung nodules. Pleura: Trace bilateral pleural effusions. No pneumothorax. Mediastinum: Postoperative changes as above. Dilated left ventricle andleft atrium. Mitral annular calcification. No pericardial effusion. Smallhiatal hernia. Lymph Nodes: No lymphadenopathy is identified. Upper Abdomen: Diffusely high attenuation of the liver, which can be seenwith amiodarone use. Chest Wall: Surgical clips from left breast surgery. Median sternotomy. Bones/Soft Tissues: Sternotomy wires appear intact. No suspiciousdestructive osseous lesions. Osteopenia. IMPRESSION: * Allowing for the noncontrast technique, unremarkable postoperativeappearance status post aortic valvular and ascending aortic replacementwith left atrial appendage amputation clip. * Persistent dilatation of the [place] thoracic aorta (distal ascendingabove graft 4.4 cm, arch 3.2 cm, descending 3.1 cm) * Incidental relatively high attenuation of the liver, which can be seenwith amiodarone use. us Aleshia Leonard MD IMG CT CHEST Final Result * (ABNORMAL) CBC (04/29/2025 2:23 PM EST) Only the most recent of19 resultswithin the time period is included. WBC 6.05 4.00 - 11.00 K/uL 04/29/2025 2:56 PM [facility] RBC 3.45(L) 4.00 - 5.20 M/uL 04/29/2025 2:56 PM [facility] Hemoglobin 10.5(L) 12.0 - 16.0 g/dL 04/29/2025 2:56 PM [facility] Hematocrit 33.8(L) 36.0 - 46.0 % 04/29/2025 2:56 PM [facility] MCV 98.0 80.0 - 100.0 fL 04/29/2025 2:56 PM [facility] MCH 30.4 27.0 - 31.0 pg 04/29/2025 2:56 PM [facility] MCHC 31.1(L) 32.0 - 36.0 g/dL 04/29/2025 2:56 PM [facility] PLT 282 150 - 450 K/uL 04/29/2025 2:56 PM [facility] MPV 9.7 8.4 - 12.0 fL 04/29/2025 2:56 PM [facility] RDW-CV 14.6(H) 11.5 - 14.5 % 04/29/2025 2:56 PM [facility] Absolute NRBC 0.00 <=0.00 K cells/uL 04/29/2025 2:56 PM [facility] NRBC 0.0 <=0.0 /100 WBCs 04/29/2025 2:56 PM [facility] Blood (Blood) Venipuncture / Unknown 04/29/2025 2:23 PM EST 04/29/2025 2:41 PM EST us Chelo Nuñez PERSONAL INJURY ATTORNEY LAB BLOOD BKR ORDERABLES F inal Result [address] [phone] * (ABNORMAL) Basic Metabolic Panel (BMP) (04/29/2025 2:23 PM EST) Only the most recent of29 resultswithin the time period is included. Sodium 143 136 - 145 mmol/L 04/29/2025 3:17 PM [facility] Potassium 4.3 3.4 - 5.1 mmol/L 04/29/2025 3:17 PM [facility] Chloride 105 98 - 107 mmol/L 04/29/2025 3:17 PM [facility] CO2 28 20 - 31 mmol/L 04/29/2025 3:17 PM [facility] Anion Gap 10 3 - 17 mmol/L 04/29/2025 3:17 PM [facility] BUN 26(H) 6 - 23 mg/dL 04/29/2025 3:17 PM [facility] Creatinine 1.85(H) 0.50 - 1.00 mg/dL 04/29/2025 3:17 PM [facility] eGFR 27(L) >59 mL/min/1.7 3m2 04/29/2025 3:17 PM [facility] Comment:Estimated glomerular filtration rate calculated using the CKD-EPI refit equation. Glucose 93 70 - 99 mg/dL 04/29/2025 3:17 PM [facility] Calcium 9.5 8.5 - 10.5 mg/dL 04/29/2025 3:17 PM EST [facility] Blood (Blood) Venipuncture / Unknown 04/29/2025 2:23 PM EST 04/29/2025 2:41 PM EST us Chelo Nuñez PERSONAL INJURY ATTORNEY LAB BLOOD BKR ORDERABLES F inal Result [address] [phone] * Prepare RBC, 1 Units (04/06/2025 12:37 AM EDT) Only the most recent of2 resultswithin the time period is included. Product Code [id number] 04/06/2025 12:37 AM EDT [facility] Unit Number [id number] 04/06/20 12:37 AM EDT [facility] Crossmatch Interpretation Compatible 04/04/2025 10:05 AM EDT [facility] Product Status Issued, Final 025 12:37 AM EDT [facility] ABO/Rh of Unit APOS 04/06/2025 12:37 AM EDT [facility] Expiration Date/Time [id number] 04/06/2025 12:37 AM EDT [facility] Unit Barcode 6200 04/06/2025 12:37 AM EDT [facility] 03/12/2025 5:1 6 PM EDT us Khari Walker PA-C BLOOD BANK PRODUCT ORDE RABHORTENCIA Final Result [facility] [address] [place] [address] * POCT Glucose (04/05/2025 8:02 AM EDT) Only the most recent of41 resultswithin the time period is included. Glucose, POCT 104 70 - 110 mg/dL [facility] 04/05/2025 8:02 AM EDT 04/05/2025 8:04 AM EDT Aleshia Leonard MD POINT OF CARE TEST ORDERABLES F inal Result Performing Organization Address City/[facility]/ZIP Co de Phone Number [address] [address] * Type and Screen (ABO,Rh,Antibody Screen) (04/05/2025 5:36 AM EDT) Only the most recent of3 resultswithin the time period is included. Expiration Date of Sample 04/08/2025 11:59 PM [facility] Antibody Screen Negative 04/05/2025 6:52 AM EDT [facility] Resulting Agency [facility] ABO A 04/05/2025 6:42 AM EDT [facility] Rh Positive 04/05/2025 6:42 AM EDT [facility] Blood 04/05/2025 5:36 AM EDT 04/05/2025 5:49 AM EDT Khari Walker PA-C LAB BLOOD BANK TEST ORD ERABLES Final Result Performing Organization Address City/[facility]/ZIP Co de Phone Number [address] [address] * Magnesium (04/05/2025 5:36 AM EDT) Only the most recent of27 resultswithin the time period is included. Pathologist [facility] MAGNESIUM 2.4 1.7 - 2.4 mg/dL [facility] Blood 04/05/2025 5:36 AM EDT 04/05/2025 6:07 AM EDT Shanelle Mcmullen RN PROCEDURE LAB BLOOD BKR ORDERABLES Final Result Performing Organization Address City/[facility] Co de Phone Number [address] [address] * ECG 12-LEAD (04/05/2025 5:32 AM EDT) Only the most recent of11 resultswithin the time period is included. Systolic Blood Pressure 127 mmHg [facility] Diastolic Blood Pressure 58 mmHg [facility] Ventricular Rate EKG/MIN 63 BPM [facility] Atrial Rate 63 BPM [facility] [place] Interval 174 ms [facility] QRS Duration 88 ms [facility] QT Interval 370 ms [facility] QTC Interval 378 ms [facility] P [place] 57 degrees [facility] R Wave [place] 4 degrees [facility] T Wave [place] 69 degrees [facility] 04/05/2025 5:32 AM EDT [...] (296) on 04/20/2025 5:17:57 PM Nicolette Pike [employer]INFORCING STEEL E[employer]OR, DNP ECG ORDERABLES F inal Result [facility] * Sodium, random urine (04/04/2025 6:29 PM EDT) URINE SODIUM 20 mmol/L [facility] Comment:Results must be inte rpreted based on patient context and with other clinical and laboratory data. Urine (Urine) 04/04/2025 6:2 9 PM EDT 04/04/2025 9:32 PM EDT Khari Walker PA-C LAB URINE ORDERABLES Fi nal Result [facility] [address] [place] [address] * Osmolality, Random Urine (04/04/2025 6:29 PM EDT) URINE OSMOLALITY 326 150 - 1,150 mOsm/kg water [facility] Urine (Urine) 04/04/2025 6:2 9 PM EDT 04/04/2025 9:32 PM EDT Khari Walker PA-C LAB URINE ORDERABLES Fi nal Result [facility] [address] [place] [address] * Transfuse RBC (04/04/2025 4:29 PM EDT) Khari Walker PA-C NURSING TREATMENT ORDER TRENT [...] clinician's provided indication for this examination in [facility]:S/P Cardiac Surgery COMPARISON: April 01, 2025 [...] be used to guide medication dosing. Negative [facility] 04/02/2025 4:33 AM EDT 04/02/2025 4:53 AM EDT Nicolette Pike REINFORCING STEEL ERECTOR, DNP LAB BLOOD ORDERAB LES Final Result [address] [address] * (ABNORMAL) LFTs (hepatic panel) (04/02/2025 12:34 AM EDT) Only the most recent of10 resultswithin the time period is included. Pathologist [facility] ALBUMIN 3.2(L) 3.3 - 5.0 g/dL [facility] TOTAL BILIRUBIN 0.5 0.0 - 1.0 mg/dL [facility] DIRECT BILIRUBIN 0.2 0.0 - 0.3 mg/dL [facility] ALKALINE PHOSPHATASE 69 30 - 100 U/L [facility] AST 25 9 - 32 U/L [facility] ALT 13 7 - 33 U/L [facility] TOTAL PROTEIN 6.2 6.0 - 8.3 g/dL [facility] GLOBULIN 3.0 1.9 - 4.1 g/dL [facility] Blood 04/02/2025 12:3 4 AM EDT 04/02/2025 12:55 AM EDT Nicolette Pike CNP, KUS[facility] LAB BLOOD BKR ORD ERABLES Final Result Performing Organization Address [facility]/ZIP Co de Phone Number [address] [address] * PTT (04/02/2025 12:34 AM EDT) Only the most recent of11 resultswithin the time period is included. Pathologist [facility] APTT 27.8 24.0 - 37.5 sec [facility] Comment:Check MAR for the ta rget range that is ordered for your patient. Blood 04/02/2025 12:3 4 AM EDT 04/02/2025 12:55 AM EDT Nicolette Pike CNP, KUSUM LAB BLOOD BKR ORD ERABLES Final Result [address] [address] * Phosphorus (04/02/2025 12:34 AM EDT) Only the most recent of19 resultswithin the time period is included. Pathologist [facility] PHOSPHORUS 3.6 2.6 - 4.5 mg/dL [facility] Blood 04/02/2025 12:3 4 AM EDT 04/02/2025 12:55 AM EDT Nicolette Pike CNP, DNP LAB BLOOD BKR ORD ERABLES Final Result Performing Organization Address City/[facility]/ZIP Co de Phone Number [address] [address] * Lactate (04/02/2025 12:34 AM EDT) Only the most recent of3 resultswithin the time period is included. LACTIC ACID (MMOL/L) 0.9 0.5 - 2.0 mmol/L [facility] Blood 04/02/2025 12:3 4 AM EDT 04/02/2025 12:54 AM EDT Nicolette Pike CNP, DNP LAB BLOOD BKR ORD ERABLES Final Result Performing Organization Address City/[facility] Co de Phone Number [address] [address] * XR Chest Portable (04/01/2025 10:13 PM [...] this examination in Epic:S/P Cardiac Surgery COMPARISON: XR CHEST PORTABLE 03:24:09.000 [...] l il ral pleural effusions. Shanelle Mcmullen RN PROCEDURE IMG XR CHEST Final Result * GLUCOSE (BLOOD GAS) (04/01/2025 12:48 PM EDT) Only the most recent of4 resultswithin the time period is included. Glucose, whole bld 106 70 - 110 mg/dL [facility] Blood 04/01/2025 12:4 8 PM EDT 04/01/2025 1:03 PM EDT Nicolette Pike [employer], DNP LAB BLOOD BKR ORD ERABLES Final Result [facility] [address] [place] [address] * (ABNORMAL) POTASSIUM (BLOOD GAS) (04/01/2025 12:48 PM EDT) Only the most recent of4 resultswithin the time period is included. POTASSIUM 3.2(L) 3.5 - 5.0 mmol/L [facility] Blood 04/01/2025 12:4 8 PM EDT 04/01/2025 1:03 PM EDT Nicolette Pike [employer], DNP LAB BLOOD BKR ORD ERABLES Final Result [address] [address] * Respiratory Pathogen PCR Panel (04/01/2025 11:43 AM EDT) Specimen Type NASOPHARYNGEAL SWAB [facility] Adenovirus Not Detected Not Detected [facility] Coronavirus, not SARS-CoV-2 Not Detected Not Detected [facility] Comment:This component of e panel targets Coronavirus 229E, HKU1, NL63, and OC43 only. Human Metapneumovirus Not Detected Not Detected [facility] Influenza A Not Detected Not Detected [facility] Comment:This component of e panel detects Influenza A and can differentiate among certain Influenza A subtypes including H1, H1-2009, H3, and a non-specified subtype. Influenza B Not Detected Not Detected [facility] Parainfluenza 1-4 Not Detected Not Detected [facility] Respiratory Syncytial Virus Not Detected Not Detected [facility] Human Rhinovirus/Entero virus Not Detected Not Detected [facility] Bordetella Parapertussis Not Detected Not Detected [facility] Bordetella Pertussis Presumptive: Not Detected Presumptiv e: Not Detected [facility] Chlamydia Pneumoniae Presumptive: Not Detected Presumptiv e: Not Detected [facility] Mycoplasma Pneumoniae Presumptive: Not Detected Presumptiv e: Not Detected [facility] Comment: Performance of this assay has not been established for specimens collected from individuals without signs or symptoms of respiratory infections. This test has [place] authorization from the FDA for use by authorized laboratories. 04/01/2025 11:4 3 AM EDT 04/01/2025 11:43 AM EDT Aleshia Leonard MD LAB GENERAL ORDERABLES Final Re sult [address] [address] * Serology comment (04/01/2025 11:43 AM EDT) SEROLOGY COMMENT Test Added by MD/Care Unit on: [facility] Comment:04/01/25 BY KENTRELL MONTERROSO 04/01/2025 11:4 3 AM EDT 04/01/2025 11:43 AM EDT Aleshia Leonard MD LAB BLOOD ORDERABLES Final Resu lt Performing Organization Address City/[facility]/ZIP Co de Phone Number [address] [address] * Microbiology Add On (04/01/2025 10:52 AM EDT) Only the most recent of2 resultswithin the time period is included. CONTACT INFORMATION [id number] [facility] TEST REQUESTED RESPIRATORY EXPANDED VIRAL PANEL [facility] Comments (Chemistry) ADD ON COMPLETE. [facility] Specimen Type RESPIRATORY NASOPHARYNGEAL SWAB [facility] Specimen Date/Time 515 [facility] 04/01/2025 10:5 2 AM EDT 04/01/2025 11:45 AM EDT [employer] RN PROCEDURE LAB GENERAL ORDERABLES Final R esult Performing Organization Address [facility] Co de Phone Number [address] [address] * (ABNORMAL) Cystatin C (04/01/2025 9:00 AM EDT) Cystatin C 2.58(H) 0.61 - 0.95 mg/L [facility] eGFR (Cystatin C) 19(L) >59 mL/min/1. 73m2 [facility] Comment: Cystatin C-based eGFR may differ substantially from creatinine-based eGFR in patients with abnormal muscle mass or acutely changing renal function. Please interpret together with relevant clinical features. Blood 04/01/2025 9:00 AM EDT 04/01/2025 9:22 AM EDT [employer] RN PROCEDURE LAB BLOOD BKR ORDERABLES Final Result Performing Organization Address City/[facility]/ZIP Co de Phone Number [address] [address] * Bedside Ultrasound (04/01/2025 8:20 AM EDT) us Dayana Hodgson MD IM POINT OF CARE EXAMS Final R esult [...] clinician's provided indication for this examination in [facility]: Post-Op COMPARISON: XR CHEST PORTABLE FINDINGS: [...] clinician's provided indication for this examination in [facility]:Post-Op COMPARISON: XR CHEST PORTABLE FINDINGS: Devices/Tubes/Lines: [...] AM EDT) URINE UREA NITROGEN 123 mg/dL [facility] Urine (Urine) 04/01/2025 3:3 5 AM EDT 04/01/2025 3:54 AM EDT Aleshia Leonard MD LAB URINE ORDERABLES Final Resu lt Performing Organization Address City/[facility] Co de Phone Number [address] [address] * Creatinine, random urine (04/01/2025 3:35 AM EDT) URINE CREATININE 14 mg/dL [facility] Urine (Urine) 04/01/2025 3:3 5 AM EDT 04/01/2025 3:54 AM EDT Aleshia Leonard MD LAB URINE ORDERABLES Final Resu lt Performing Organization Address [facility] Co de Phone Number [address] [address] * Lactate (blood gas) (04/01/2025 2:42 AM EDT) Only the most recent of35 resultswithin the time period is included. Lactate, blood 1.1 0.5 - 2.0 mmol/L [facility] Blood 04/01/2025 2:42 AM EDT 04/01/2025 2:58 AM EDT Nicolette Pike [employer], DNP LAB BLOOD BKR ORD ERABLES Final Result Performing Organization Address City/[facility] Co de Phone Number [address] [address] * (ABNORMAL) VENOUS BLOOD GAS PLUS (03/31/2025 11:56 PM EDT) Only the most recent of9 resultswithin the time period is included. FIO2 0.40/30LP M FIO2/L min [facility] PH 7.46(H) 7.30 - 7.40 [facility] PCO2 53(H) 38 - 50 mm[Hg] [facility] PO2 37 35 - 50 mm[Hg] [facility] Base Excess, unspecified 11.1(H) 0.0 - 3.0 mmol/L [facility] HCO3, unspecified 36(H) 24 - 30 mmol/L [facility] SODIUM 131(L) 135 - 145 mmol/L [facility] POTASSIUM 3.2(L) 3.5 - 5.0 mmol/L [facility] IONIZED CALCIUM 1.17 1.14 - 1.30 mmol/L [facility] Glucose, whole bld 245(H) 70 - 110 mg/dL [facility] HGB (BG) 8.2(L) 12.0 - 16.0 g/dl [facility] SO2-VENOUS (SO2, venous) 63.1 60.0 - 85.0 % [facility] Blood 03/31/2025 11:5 6 PM EDT 04/01/2025 12:02 AM EDT Aleshia Leonard MD LAB BLOOD ORDERABLES Final Resu lt [address] [address] * (ABNORMAL) Ionized calcium (03/31/2025 11:56 PM EDT) IONIZED CALCIUM 1.12(L) 1.14 - 1.30 mmol/L [facility] Blood 03/31/2025 11:5 6 PM EDT 04/01/2025 12:02 AM EDT Nicolette Pike CNP, KUSUM LAB BLOOD BKR ORD ERABLES Final Result Performing Organization Address City/[facility]/ZIP Co de Phone Number [address] [address] * (ABNORMAL) Oxygen saturation, mixed venous (03/31/2025 9:24 AM EDT) Only the most recent of8 resultswithin the time period is included. SO2-MIXED (SO2, mixed bld) 59.9(L) 65.0 - 75.0 % [facility] Blood 03/31/2025 9:24 AM EDT 03/31/2025 9:50 AM EDT Nicolette Pike CNP, KUSUM LAB BLOOD BKR ORD ERABLES Final Result Performing Organization Address [facility] Co de Phone Number [address] [address] * XR Chest Portable (03/30/2025 9:00 PM [...] left upper extremities. 3. Portable exam. ATTESTATION: I, Dr. Lauren Acevedo as teaching physician, have reviewed the images [...] created by TAYLOR WILLINGHAM. us Juju Sibley [employer] CV US VASCULAR Final Result * US [...] or left lowerextremities. 2. Portable exam. ATTESTATION: IDr. Lauren as teaching physician, havereviewed the images for this case and if necessary edited the reportoriginally created by TAYLOR WILLINGHAM. Juju Sibley CNP US VASCULAR Final Result * (ABNORMAL) Arterial blood gas PLUS (03/30/2025 2:45 AM EDT) Only the most recent of32 resultswithin the time period is included. FIO2 0.65 FIO2/L min [facility] Comment:HFNC 50L PH 7.51(H) 7.35 - 7.45 [facility] PCO2 53(H) 35 - 42 mm[Hg] [facility] PO2 68(L) 80 - 100 mm[Hg] [facility] Base Excess, unspecified 16.4(H) 0.0 - 3.0 mmol/L [facility] HCO3, unspecified 41(H) 24 - 30 mmol/L [facility] SODIUM 139 135 - 145 mmol/L [facility] POTASSIUM 3.6 3.5 - 5.0 mmol/L [facility] IONIZED CALCIUM 1.00(L) 1.14 - 1.30 mmol/L [facility] Glucose, whole bld 121(H) 70 - 110 mg/dL [facility] HGB (BG) 8.3(L) 12.0 - 16.0 g/dl [facility] O2 Sat (SO2, arterial) 94.9 94.0 - 99.0 % [facility] Blood 03/30/2025 2:45 AM EDT 03/30/2025 2:50 AM EDT us Aleshia Leonard MD LAB BLOOD ORDERABLES Final Resu lt [facility] [address] [place] [address] * XR Chest Portable (03/29/2025 9:10 PM [...] cardiac silhouette,and bilateral pleural effusions. Joelle Hoang [facility] IM XR CHEST Final R esult * COVID Pandemic Respiratory Viral Order (PRO) (03/29/2025 5:16 AM EDT) Only the most recent of2 resultswithin the time period is included. Test Ordered Rapid COVID has been ordered [facility] SPECIMEN SOURCE/DESCRIPTIO N NASOPHARYNGEAL SWAB [facility] SARS-CoV 2 (COVID-19) PCR Negative Negative [facility] Comment: Negative results do not preclude [...] EDT 03/29/2025 8:54 AM EDT Minal Abraham [employer] LAB GENERAL ORDERABLES Final Res ult [facility] [address] [place] [address] * XR Chest Portable (03/29/2025 4:27 AM EDT) Anatomical Region Laterality Modality Chest Computed Radiogr aphy 03/29/2025 9:1 6 AM EDT Impressions 03/29/2025 9:20 AM EDT No pneumothorax. Pulmonary edema has resolved. Small bilateral pleural effusions. Stable patchy opacities in both mid and lower lungs, LEFT greater than RIGHT, consistent with atelectasis. Underlying pneumonia or aspiration can not be ruled out. Narrative 03/29/2025 9:20 AM EDT XR CHEST PORTABLE Referring clinician's provided indication for this examination in [facility]: Dyspnea on exertion COMPARISON: XR CHEST PORTABLE [...] clinician's provided indication for this examination in [facility]:Dyspnea on exertion COMPARISON: XR CHEST PORTABLE [...] aspiration can not be ruled out. Minal Coxci [employer] IMG XR CHEST Final Result * XR [...] clinician's provided indication for this examination in [facility]: Pulmonary Edema COMPARISON: XR CHEST PORTABLE [...] clinician's provided indication for this examination in [facility]:Pulmonary Edema COMPARISON: XR CHEST PORTABLE FINDINGS: Devices/Tubes/Lines: [...] 3:35 PM EDT) Specimen Type NASOPHARYNGEAL SWAB [facility] Influenza A PCR NEGATIVE for INFLUENZA A NEGATIVE for INFLUENZA A [facility] Influenza B PCR NEGATIVE for INFLUENZA B NEGATIVE for INFLUENZA B [facility] RSV PCR NEGATIVE for RSV NEGATIVE for RSV [facility] Comment: This test has been authorized by the FDA under an Emergency Use Authorization (EUA) for use by authorized laboratories. 03/28/2025 3:35 PM EDT 03/28/2025 5:42 PM EDT Juju Sibley CNP LAB GENERAL ORDERABLES Final Result Performing Organization Address City/State/[facility] Co de Phone Number [address] [address] * INSERT ARTERIAL LINE (03/28/2025 3:10 PM EDT) Narrative Juju Sibley CNP - 03/28/2025 3:10 PM EDT Juju Sibley CNP 03/28/2025 3:14 PM Arterial Line Date/Time: 03/28/2025 3:10 PM Performed by: Juju Sibley CNP Authorized by: Juju Sibley CNP [place] Protocol: Consent obtained: Yes Time out: Immediately [...] EDT) RBC 0-2 0 - 2 /hpf [facility] WBC <10 <10 /hpf [facility] Comment:0 to 2 WBC's per hpf 03/28/2025 7:41 AM EDT 03/28/2025 9:05 AM EDT Juju Sibley CNP URINE ORDERABLES Final Result Performing Organization Address City/State/[facility] Co de Phone Number [address] [address] * (ABNORMAL) Urinalysis w/reflex Urine Culture (03/28/2025 7:41 AM EDT) COLOR COLORLESS(A ) Yellow [facility] CLARITY Clear Clear [facility] GLUCOSE Negative Negative [facility] BILI Negative Negative [facility] KETONES Negative Negative [facility] SPECIFIC GRAVITY 1.008 1.001 - 1.035 [facility] BLOOD 1+(A) Negative [facility] PH 5.0 5.0 - 9.0 [facility] Protein-UA Negative Negative [facility] UROBILINOGEN Negative Negative [facility] NITRITE Negative Negative [facility] Leukocyte esterase, ur Negative Negative [facility] Urine (Urine) 03/28/2025 7:4 1 AM EDT 03/28/2025 9:05 AM EDT Juju Sibley CNP LAB URINE ORDERABLES Final Re sult Performing Organization Address [facility] Co de Phone Number [address] [address] * MICROALBUMIN/CREATININE, RANDOM URINE (03/28/2025 7:41 AM EDT) MICROALB/CRE RATIO TOO LOW TO CALCULATE <30.0 mg/g Cre [facility] 03/28/2025 7:41 AM EDT 03/28/2025 9:05 AM EDT Juju Sibley [employer] URINE ORDERABLES Final Result Performing Organization Address [facility] Co de Phone Number [address] [address] * TOTAL PROTEIN CREATININE RATIO, RANDOM URINE (03/28/2025 7:41 AM EDT) URINE TOTAL PROTEIN <4.0 0.0 - 13.5 mg/dL [facility] URINE CREATININE 25 mg/dL [facility] URINE TP CRE RATIO TOO LOW TO CALCULATE <0.15 [facility] Urine (Urine) 03/28/2025 7:4 1 AM EDT 03/28/2025 9:05 AM EDT Doryslorriejulee Sibley CNP LAB URINE ORDERABLES Final Re sult Performing Organization Address [facility] Co de Phone Number [address] [address] * Heparin PF4 antibody (HIT) (03/28/2025 7:41 AM EDT) HIT IGG ANTIBODY Negative Negative [facility] Comment: This result indicates [...] 4T's score). Heparin PF4 Antibody 0.00 U/mL [facility] Comment:Nighat ACOSTA, Jericho FAM, Marcia WATERS, Nikhil EDWARDS, Olivia I. High sensitivity and specificity of an automated IgG specific chemiluminescence immunoassay for diagnosis of HIT. Blood. 2017Mar 06 132(12):1345 to 1349. doi: 10.1182/blood 2017 09 [id number]. Epub 2017Jan 14. PMID: [id number] PMCID: [id number]. Blood 03/28/2025 7:41 AM EDT 03/28/2025 8:16 AM EDT Juju Sibley [facility] LAB BLOOD BKR ORDERABLES Jessica l Result Performing Organization Address [facility] Co de Phone Number [facility] [address] [place] [address] * Microalbumin, Urine (03/28/2025 7:41 AM EDT) URINE MICROALBUMIN <0.2 0.0 - 2.0 mg/dL [facility] 03/28/2025 7:41 AM EDT 03/28/2025 9:05 AM EDT remoceannathan Maryjo [facility] LAB URINE ORDERABLES Final Re sult Performing Organization Address [facility] Co de Phone Number [address] [address] * (ABNORMAL) SPEP PANEL (03/28/2025 7:41 AM EDT) Total Protein 4.8(L) 6.0 - 8.3 g/dL [facility] IMMUNOGLOBULIN G 669 614 - 1,295 mg/dL [facility] IgA 154 69 - 309 mg/dL [facility] IMMUNOGLOBULIN M 43(L) 53 - 334 mg/dL [facility] SPEP Normal pattern [facility] Comment: Normal SPEP: Normal pattern Performing Pathologist, Stan Ambriz M.D., Ph.D. [phone] Serum protein electrophoresis results should be evaluated in the context of separately reported serum free light chain levels and ratio when these additional results are available. Blood 03/28/2025 7:41 AM EDT 03/28/2025 8:06 AM EDT Juju Sibley [facility] LAB BLOOD BKR ORDERABLES Jessica l Result Performing Organization Address [facility] Co de Phone Number [address] [address] * (ABNORMAL) Free light chains, serum (03/28/2025 7:41 AM EDT) FREE KAPPA LT CHAIN 39.0(H) 3.3 - 19.4 mg/L [facility] FREE LAMBDA LT CHAIN 33.7(H) 5.7 - 26.3 mg/L [facility] FREE KAPPA LAMBDA RAT 1.16 0.30 - 1.70 [facility] Blood 03/28/2025 7:41 AM EDT 03/28/2025 8:06 AM EDT Juju Sibley [facility] LAB BLOOD BKR ORDERABLES Jessica l Result Performing Organization Address [facility] de Phone Number [address] [address] * XR Chest Portable (03/27/2025 10:44 PM [...] (SO2, arterial) 92.9(L) 94.0 - 99.0 % [facility] Blood 03/26/2025 9:32 PM EDT 03/26/2025 9:35 PM EDT Nicolette Pike [employer], DNP LAB BLOOD BKR ORD ERABLES Final Result [facility] [address] [place] [address] * XR Chest Portable (03/26/2025 8:48 PM [...] clinician's provided indication for this examination in [facility]: Pulmonary Edema COMPARISON: XR CHEST PORTABLE [...] clinician's provided indication for this examination in [facility]:Pulmonary Edema COMPARISON: XR CHEST PORTABLE 02:47:41.000 [...] atelectasis, aspiration or pneumonia. Juju Sibley CNP [facility] XR CHEST Final Result * Fibrinogen (03/26/2025 3:10 AM EDT) Only the most recent of3 resultswithin the time period is included. FIBRINOGEN 286 200 - 400 mg/dL [facility] Blood 03/26/2025 3:10 AM EDT 03/26/2025 3:37 AM EDT Nicolette Pike [employer], DNP LAB BLOOD BKR ORD ERABLES Final Result [facility] [address] [place] [address] * XR Chest Portable (03/26/2025 2:49 AM [...] clinician's provided indication for this examination in [facility]: Post-Op; cardiac surgery COMPARISON: XR CHEST [...] clinician's provided indication for this examination in [facility]:Post-Op; cardiac surgery COMPARISON: XR CHEST PORTABLE [...] necessary edited the report originally createdby Danica uJnior. Nicolette Pike [employer], DNP IMG XR CHEST F inal Result [...] edited the report originallycreated by Jacquelyn Mcleod. us Nicolette Pike [employer], DNP IMG XR CHEST F inal Result * MRSA Nasal Screen (03/25/2025 1:45 PM EDT) Special Requests No Special Requests 03/25/2025 1:45 PM EDT [facility] MRSA Nasal Culture NEGATIVE FOR MRSA 03/26/2025 2:03 PM EDT [facility] Other (Nasal) 03/25/2025 1:4 5 PM EDT 03/25/2025 5:18 PM EDT us Nicolette Pike CNP, K[facility]UM LAB MICROBIOLOGY CULTURE ORDERABLES Final Result Performing Organization Address City/[facility]/ZIP Co de Phone Number [address] [address] * Vancomycin Resistant Enterococci (VRE), Rectal Screen (03/25/2025 1:45 PM EDT) Pathologist [facility] Special Requests No Special Requests 03/25/2025 1:45 PM EDT [facility] VRE Rectal Culture NEGATIVE FOR VRE 03/26/2025 2:16 PM EDT [facility] Stool (Stool swab) 03/25/2025 1:45 PM EDT 03/25/2025 5:20 PM EDT Nicolette Pike CNP, [facility] LAB MICROBIOLOGY CULTURE ORDERABLES Final Result Performing Organization Address [facility] Co de Phone Number [address] [address] * CB COMP PROBE PLACED BY ANES W/ COLOR FLOW AND COMP DOPPLER (03/25/2025 1:23 PM EDT) Pathologist [facility] Body Surface Area 1.79 m2 Anatomical Region [...] CARDIAC OR 103 90 - 130 sec [facility] 03/25/2025 12:3 9 PM EDT 03/25/2025 12:37 PM EDT us Aleshia Leonard MD LAB POCT ENTER/EDIT ORDERABLES Final Result [address] [address] * POCT Heparin Protamine Titration (03/25/2025 12:39 PM EDT) Only the most recent of8 resultswithin the time period is included. Heparin Protamine Titration 0.0 u/ml [facility] Misc Test Ref Range 0.0-1.2 u/ml [facility] Comment (Coag) [facility] 03/25/2025 12:3 9 PM EDT 03/25/2025 12:37 PM EDT Aleshia Leonard MD POINT OF CARE TEST ORDERABLES F inal Result [address] [address] * (ABNORMAL) PUMP BLOOD GAS PLUS (03/25/2025 11:44 AM EDT) Only the most recent of6 resultswithin the time period is included. FIO2/FLOW CPB FIO2/L min [facility] TEMP. 37.0 deg C [facility] PH(UNCORRECTED) 7.43 [facility] PH 7.43 7.32 - 7.45 [facility] PCO2(UNCORRECTE D) 38 mm[Hg] [facility] PCO2 38 35 - 50 mm[Hg] [facility] PO2(UNCORRECTED ) 250 mm[Hg] [facility] PO2 250(H) 40 - 90 mm[Hg] [facility] Base Excess, unspecified 0.3 0.0 - 3.0 mmol/L [facility] HCO3, unspecified 25 24 - 30 mmol/L [facility] SODIUM 137 135 - 145 mmol/L [facility] POTASSIUM 5.1(H) 3.5 - 5.0 mmol/L [facility] HGB (BG) 7.6(L) 12.0 - 16.0 g/dl [facility] IONIZED CALCIUM 0.89(L) 1.14 - 1.30 mmol/L [facility] Glucose, whole bld 126(H) 70 - 110 mg/dL [facility] SO2, unspecified 99.6 94.0 - 99.9 % [facility] Comment: SO2 Reference Range: Arterial: 94.0-99.9 Venous: 60.0-85.0 Blood 03/25/2025 11:4 4 AM EDT 03/25/2025 11:49 AM EDT us Say Mayo MD LAB BLOOD ORDERABLES Final Result [address] [address] * Anatomic Pathology (Non-MGB) (03/25/2025 10:37 AM EDT) Report [address], [place] [address] Surgical Pathology Report Patient Name: ROSSY MITCHELL : 1945 (Age: 79) Sex: F [facility]: [facility] Institution: [facility] Date of Operation: 03/25/2025 Date of Reported: [...] Sectioning reveals a white, smooth cut surface. Motion Picture Photographer sections are submitted in A1-A2. Additional patient relations representative sections are submitted in A3-A10 on 04/02/2025. B. Labeled aortic valve are 2 white-abutista, rubbery valvular cusps measuring 2.1 x 1.0 x 0.2 cm and 3.8 x 1.3 x 0.2 cm. The larger fragment appears to be 2 cusps fused at the commissure. The cusps display minimal yellow plaque, and no distinct calcifications or vegetations are identified. Also received is a 0.8 x 0.6 x 0.2 cm aggregate of white-bautista rubbery tissue fragments. Motion Picture Photographer sections of each cusp to include the possible fused commissure are submitted in B1. Grossed by: Mimi Campos Immunohistochemical and in-situ hybridization tests performed at [facility] have been developed and their performance characteristics determined by the Immunohistochemistry Laboratories in the Department of Pathology at [facility] [facility]. They have not been cleared or approved by the U.S.Food and Drug Administration (FDA); the FDA has determined that such clearance or approval is not necessary. [facility] Clinical History Aortic regurgitation and ascending aortic aneurysm; atrial fibrillation [facility] Final Diagnosis A. AORTA EXCISION: AORTITIS [...] Pastrana. B. AORTIC VALVE EXCISION: Myxomatous degeneration. [facility] Gross Description Received fresh in 2 parts, each labeled Rossy Mitchell and . A. Labeled aorta is a 6.5 x 6.0 x 1.4 cm aggregate of large caliber vessel fragments. The tunica externa is bautista-pink with minimal hemorrhage, and the tunica intima is white-bautista and smooth with minimal yellow plaque. Sectioning reveals a white, smooth cut surface. Motion Picture Photographer sections are submitted in A1-A2. Additional patient relations representative sections are submitted in A3-A10 on [...] cm aggregate of white-bautista rubbery tissue fragments. Motion Picture Photographer sections of each cusp to include the possible fused commissure are submitted in B1. [facility] Conversion Type (Aorta) 03/25/2025 10:37 AM EDT 03/25/2025 1:40 PM EDT Conversion Type (Heart Valve, Quinault Aortic) 03/25/2025 10:37 AM EDT 03/25/2025 1:40 PM EDT us Aleshia Leonard MD LAB PATHOLOGY ORDERABLES Edited Result - Final [address] [address] * [place] INSERT/PLACE FLOW DIRECT CATH PERF, ANES DOUBLE LUMEN SHEATH - PA LINE, ANES VIP PLUS CATH - CENTRAL PA LINE (03/25/2025 8:36 AM EDT) Narrative Say Mayo MD - 03/25/2025 8:36 AM EDT Say Mayo MD 03/25/2025 8:36 AM Pulmonary Artery Line Placement Procedure Note: Start time: 03/25/2025 8:18 AM Anesthesiologist: Say Mayo MD Fellow/Resident/VENEER REPAIRER MACHINE: Daniela Motley MD, MPH Performed: fellow/resident/VENEER REPAIRER MACHINE Wolsey Protocol performed: consent obtained, patient identified with [...] 30 seconds? yes personal protection worn? yes assistant department manager followed standard precautions? yes sterile technique used [...] flow Complications?: No us Say Mayo MD [place] ANESTHESIA Final Resul t * [place] ECHO HEART TRANSESOPH PROBE PLACEMT PERF (03/25/2025 8:36 AM EDT) Say Macdonald MD - 03/25/2025 8:36 AM EDT Say Mayo MD 03/25/2025 8:36 AM Transesophageal Echocardiogram Procedure Note: Performed by: anesthesiologist Anesthesiologist: Say Mayo MD Wolsey Protocol performed: consent obtained, patient identified with 2 identifiers, correct procedure verified, correct site and laterality confirmed, verified equipment, coagulation status reviewed and implant history reviewed. Placement notes: probe advanced in esophagus atraumatic Say Mayo MD [place] ANESTHESIA Final Resul t * [place] INSERT CATH ART PERCUT SHORTTERM PERF (03/25/2025 8:35 AM EDT) Say Macdonald MD - 03/25/2025 8:35 AM EDT Say Mayo MD 03/25/2025 9:20 AM Arterial Line Placement Procedure Note: Start Time 03/25/2025 7:22 AM: Location: pre-op Procedure performed by: fellow/resident/VENEER REPAIRER MACHINE Anesthesiologist: Say Mayo MD Fellow/Resident/VENEER REPAIRER MACHINE: Daniela Motley MD, MPH Indication(s): hemodynamic monitoring, arterial blood gas and frequent labs Wolsey Protocol performed: consent obtained, patient identified with [...] complications Transducer type: regular Say Mayo MD [place] ANESTHESIA Edited Resu lt - Final * POCT heparin dose response (03/25/2025 7:55 AM EDT) Only the most recent of2 resultswithin the time period is included. ACT FROM CARDIAC OR 126 90 - 130 sec [facility] Projected heparin concentration 4.6 u/ml [facility] Heparin dose response 71 50 - 120 sec [facility] 03/25/2025 7:55 AM EDT 03/25/2025 8:00 AM EDT Aleshia Leonard MD POINT OF CARE TEST ORDERABLES F inal Result Performing Organization Address City/State/[facility] Co de Phone Number [address] [address] * ANES ETT DOUBLE LUMEN - AIRWAY LDA (03/25/2025 7:46 AM EDT) Narrative Say Mayo MD - 03/25/2025 7:46 AM EDT Say Mayo MD 03/25/2025 8:36 AM Airway Placement Procedure Note: Patient was not difficult to intubate. Procedure performed by: fellow/resident/VENEER REPAIRER MACHINE Anesthesiologist: Say Mayo MD Fellow/Resident/VENEER REPAIRER MACHINE: Daniela Motley MD, MPH Airway procedure initiated [...] in neutral position. us Say Mayo MD [place] ANESTHESIA Final Resul t * ANESTHESIA POINT OF CARE IMAGE CAPTURE (03/25/2025 7:13 AM EDT) Anatomical Region Laterality Modality Ultrasound Narrative 03/25/2025 7:13 AM EDT Daniela Motley MD, MPH 03/25/2025 7:13 AM Anesthesia Point of Care Image Capture Performed by: Say Mayo MD Authorized by: Say Mayo MD Accession Number: [id number] us Say aMyo MD IMG POINT OF CARE EXAMS Fin al Result * ANESTHESIA POINT OF CARE IMAGE CAPTURE (03/25/2025 6:28 AM EDT) Anatomical Region Laterality Modality Ultrasound Narrative 03/25/2025 6:28 AM EDT Daniela Motley MD, MPH 03/25/2025 6:28 AM Anesthesia Point of Care Image Capture Performed by: Daniela Motley MD, MPH Authorized by: Say Mayo MD Accession Number: [id number] us Say Mayo MD IMG POINT OF CARE EXAMS Fin al Result * (ABNORMAL) Lipid profile with direct LDL (01/18/2025 1:43 PM EDT) CHOLESTEROL 210(H) 0 - 200 mg/dL [facility] TRIGLYCERIDES 118 0 - 150 mg/dL [facility] HDL 66 40 - 80 mg/dL [facility] LDL Chol (Direct) 134(H) 0 - 130 mg/dL [facility] CARDIAC RISK RATIO 3.2 [facility] Blood 01/18/2025 1:43 PM EDT 01/18/2025 1:46 PM EDT us Bryn Curran MD LAB BLOOD B [place] [address], [facility] [phone] * TSH with reflex (01/18/2025 1:43 PM EDT) SCREENING PANEL: TSH 2.77 0.34 - 5.9 uIU/mL [facility] Blood 01/18/2025 1:43 PM EDT 01/18/2025 1:46 PM EDT us Bryn Curran MD LAB BLOOD B KR ORDERABLES Final Result Performing Organization Address [facility] [place] [address], [facility] [phone] from Last 3 Months or Most Recently Relevant to Health Maintenance Insurance MEDICARE PART A & B MEDICARE PART A & B MEDICARE PART A & B MEDICARE PART A & B MEDICARE PART A & B MEDICARE PART A & B Advance Directives For more information, please contact: [phone] (9AM - 5PM [facility], Saturday-Saturday) Documents on File Type Date Recorded Patient Motion Picture Photographer Expl anation Healthcare Proxy 03/12/2025 1:59 PM Advance Directive - Non Epic LMR 10/10/2009 12:00 AM * Full Code (Latest Code Status on File) Date Activated Date Inactivated Comments 03/25/2025 1:44 PM Question Answer Comments Code Status Confirmed With: Other (specify below ) Code Discussion Comments: OR Care Teams Security Investigator Relationship Specialty Start Date End Date Carolina Madison MD [address] [place] [address] PCP - General Internal Medicine 12/10/24 lAeshia Leonard MD [address] [address] MARIA [email or web address] LICENSE OF [facility] Thoracic Surgery 01/26/25 Bryn Dominguez MD 19 [place] [address] [email or web address] Cardiology 02/25/25 Ivonne Chicas APRN [address] [place] [address] [email or web address] Nurse Practitioner 04/06/25 Additional Source Comments The information contained in this document represents components of the legal health record. It is not the complete legal health record.[facility]
--- OUTSIDE RECORDS SUMMARY | 2025-06-16 10:55 | XMS_ITS | Clinical Summary ---
Author Organization [facility] Prior to 11/14/[address] [place] [address] Care Team Providers Care Gas Leak Inspector Helper Name Role Phone Nicolette Wilson DO Primary Care Provider [phone] Allergies No known active allergies Medications Medication [...] Mother Relation Name Status Comments Brother Father [place], CVD Maternal Cousin Breast Cance r Maternal [...] age to complete this topic Care Teams Gas Leak Inspector Helper Relationship Specialty Start Date End Date Nicolette Wilson DO PCP - General Family Medicine 07/16/17
--- OUTSIDE RECORDS SUMMARY | 2025-06-16 10:55 | XMS_ITS | Encounter Summary ---
Author Organization [facility] Address [address] [place] [address] Phone Care Team Providers Care Electronic Drafter Name Role Phone Carolina Madison MD Primary Care Provider [phone] Aleshia Leonard MD Unavailable [phone] Bryn Dominguez MD Unavailabl e Ivonne Chicas APRN Unavailable [phone] Reason for Visit * Reason Comments Anticoagulation Encounter Details Date Type Department Care Team (Late st Contact Info) Description 06/11/[address] [facility] Anticoagulation Clinic [address] [place] [address] Luanne Hernandez, [address] [address] [email or web address] Anticoagulation Social History Tobacco Use Types Packs/Day [...] as of this encounter Progress Notes * Luanne Hernandez RPH - 06/11/2025 9:29 AM EST Noted, thank you * Arpita Murillo CMA - 06/11/2025 9:24 AM EST Called and spoke with daughter, gave coumadin regimen and recheck date. Daughter did ask if pt can have a small glass of wine with new years. Discussed a small glass should be fine but not a lot more. * Luanne Hernandez RPH - 06/11/2025 8:51 AM EST INR Saturday (received today) was slightly subtherapeutic at 1.9 Trial warfarin 1.5 mg daily except for 1 mg on Mondays (5.9% increase) Recheck INR one week from Saturday on 06/16/25 documented in this encounter Plan of Treatment Upcoming Encounters Date Type Department Care Team (Late st Contact Info) Description 06/01/2025 Procedure Pass [facility] Imaging - Pet Scan, [facility] [address] [place] [address] 06/29/2025 8:30 AM EST Office Visit [facility] Cardiology Clinic at the [facility] [address] [facility], 5th Floor, [address] [place] [address] Geronimo Thompson MD [address] [place] [address] [address] [place] [phone] [email or web address] 06/30/2025 11:15 AM EST Appointment [facility] Imaging - Pet Scan, [facility] [address] [place] [address] Salvador Anaya MD [address] [facility] [address] [place] [address] [email or web address] 07/02/2025 11:45 AM EST Office Visit [facility] Cardiology Clinic [address] [place] [address] [place] [address] [email or web address] 02/17/2026 3:20 PM EDT Office Visit [facility] [address] [facility], 4th Floor, [address] [place] [address] Salvador Anaya MD [address] [facility] [address] [place] [phone] [email or web address] documented as of this encounter Procedures Procedure Name Priority Date/Time Associated Diagnosis Comments PT-INR Routine 06/09/2025 documented in this encounter Results * PT-INR (06/09/2025) External Or Transcribed PT-INR 1.9 Blood (Blood) 06/09/2025 us Historical Provider LAB BLOOD BKR ORDERABLES Final Result documented in this encounter Visit Diagnoses Diagnosis Atrial fibrillation- Primary [facility] (current) use of anticoagulants Long-term (current) use of anticoagulants documented in this encounter Care Teams Electronic Drafter Relationship Specialty Start Date End Date Carolina Madison MD [address] [place] [address] PCP - General Internal Medicine 12/10/24 Aleshia Leonard MD [address] [place] [address] [address] [place] [address] MARIA [email or web address] Thoracic Surgery 01/26/25 Bryn Dominguez MD 19 [place] [address] Cardiology 02/25/25 LeaderIvonne APRN 19 [place] [address] Nurse Practitioner 04/06/25 documented as of this encounter Additional Source Comments The information contained in this document represents components of the legal health record. It is not the complete legal health record.[facility]
--- OUTSIDE RECORDS SUMMARY | 2025-06-16 10:55 | XMS_ITS | Encounter Summary ---
Author Organization [facility] Address [address] [facility] [address] [place] [address] Phone Care Team Providers Care Guest Relations Agent Name Role Phone Carolina Madison MD Primary Care Provider [phone] Aleshia Leonard MD Unavailable [phone] Bryn Dominguez MD Unavailabl e LeaderIvonne APRN Unavailable [phone] Encounter Details Date Type Department Care Team (Late st Contact Info) Description 12/22/2024 Telephone [facility] Cardiac Surgery Clinic at the [facility] [address] [facility], 6th Floor, [address] [place] [address] Aleshia Leonard MD [address] [address] MARIA [email or web address] Social History Tobacco Use Types Packs/Day Years [...] st Contact Info) Description 06/01/2025 Procedure Pass [facility] Imaging - Pet Scan, [facility] [address] [place] [address] 06/29/2025 8:30 AM EST Office Visit [facility] Cardiology Clinic at the [facility] [address] [facility], 5th Floor, [address] [place] [address] Geronimo Thompson MD [address] [phone] [email or web address] 06/30/2025 11:15 AM EST Appointment [facility] Imaging - Pet Scan, [facility] [address] [place] [address] Salvador Anaya MD [address] [place] [phone] [email or web address] [email or web address] 07/02/2025 11:45 AM EST Office Visit [facility] Cardiology Clinic [address] [place] [address] Bryn Dominguez MD 19 [place] [address] [email or web address] 02/17/2026 3:20 PM EDT Office Visit [facility] Rheumatology Clinic [address] [facility], 4th Floor, [address] [place] [address] Salvador Anaya MD [address] [place] [phone] [email or web address]. [email or web address] documented as of this encounter Visit Diagnoses Not on filedocumented in this encounter Additional Health Concerns Infection Onset Date Last Indicated Resolved Time CoV-Risk Comment:Per note documentation 03/28/2025 03/28/2025 9:57 AM EDT documented as of this encounter Care Teams Guest Relations Agent Relationship Specialty Start Date End Date Carolina Madison MD [facility] [place] [address] PCP - General Internal Medicine 12/10/24 Aleshia Leonard MD [address] [address] MARIA [email or web address] Thoracic Surgery 01/26/25 Bryn Dominguez MD 19 [place] [address] Cardiology 02/25/25 Ivonne Chicas APRN 19 [place] [address] Nurse Practitioner 04/06/25 documented as of this encounter Additional Source Comments The information contained in this document represents components of the legal health record. It is not the complete legal health record.[facility]
--- OUTSIDE RECORDS SUMMARY | 2025-06-16 10:55 | XMS_ITS | Encounter Summary ---
Author Organization [facility] Address [address] [facility] [address] [facility] [address] [place] [address] Phone Care Team Providers Care Landscape Photographer Name Role Phone Carolina Madison MD Primary Care Provider [phone] Aleshia Leonard MD Unavailable [phone] Bryn Dominguez MD Unavailabl e Leader, Ivonne London APRN Unavailable [phone] Encounter Details Date Type Department Care Team (Late st Contact Info) Description 06/09/2025 Orders Only VIRTUAL DEPARTMENT Leader, Ivonne London APRN [address] [facility], [place] [address] Social History Tobacco Use Types Packs/Day Years [...] st Contact Info) Description 06/01/2025 Procedure Pass [facility] Imaging - Pet Scan, [facility] [place] [address] [place] [address] 06/29/2025 8:30 AM EST Office Visit [facility] Cardiology Clinic at the [facility] [address] [facility], 5th Floor, [address] [place] [address] Geronimo Thompson MD [address] [place] [phone] [email or web address] 06/30/2025 11:15 AM EST Appointment [facility] Imaging - Pet Scan, [facility] [place] [address] [place] [address] Salvador Anaya MD [address] [facility] [address] [place] [address] [email or web address] 07/02/2025 11:45 AM EST Office Visit [facility] Cardiology [address] [address] Bryn Dominguez MD 19 [place] [address] [email or web address] 02/17/2026 3:20 PM EDT Office Visit [facility] [address] [place] [address], 4th Floor, [address] [place] [address] Salvador Anaya MD [address] [place] [phone] [email or web address] documented as of this encounter Procedures Procedure Name Priority Date/Time Associated Diagnosis Comments PT-INR 06/09/2025 11:09 AM EST documented in this encounter Results * (ABNORMAL) PT-INR (06/09/2025 11:09 AM EST) INR 1.9(H) 0.9 - 1.1 [facility] Prothrombin Time 18.8(H) 9.2 - 11.4 SEC [facility] 06/09/2025 11:0 9 AM EST 06/09/2025 Narrative [facility] - 06/12/2025 8:05 AM EST Performed at: 01 - [facility] [address] [place], [place] [id number] Mail Rider: Jovanni Egan MD, Phone: [phone] Specimen Comment: A duplicate report has been generated due to demographic updates. us Ivonne Chicas APRN LAB BLOOD BKR ORDERABLES Fin al Result [facility] documented in this encounter Visit Diagnoses Not on filedocumented in this encounter Care Teams Landscape Photographer Relationship Specialty Start Date End Date Carolina Madison MD [address] [place] [address] PCP - General Internal Medicine 12/10/24 Aleshia Leonard MD [address] [place] [address] MARIA [email or web address] Thoracic Surgery 01/26/25 Bryn Dominguez MD 19 [place] [address] Cardiology 02/25/25 Ivonne Chicas APRN 19 [place] [address] Nurse Practitioner 04/06/25 documented as of this encounter Additional Source Comments The information contained in this document represents components of the legal health record. It is not the complete legal health record.[facility]
--- OUTSIDE RECORDS SUMMARY | 2025-06-16 10:55 | XMS_ITS | Encounter Summary ---
Author Organization [facility] Address [address] [facility] [address] [place] [address] Phone Care Team Providers Care Director Of Flight Operations Name Role Phone Carolina Madison MD Primary Care Provider [phone] Aleshia Leonard MD Unavailable [phone] Bryn Doimnguez MD Unavailabl e Ivonne Chicas APRN Unavailable [phone] Encounter Details Date Type Department Care Team (Late st Contact Info) Description 12/22/2024 Procedure Pass [facility] Cardiology Referral Images [address] [facility] [address] [place] [address] Social History Tobacco Use Types Packs/Day Years [...] Department Care Team (Late Contact Info) Description 06/01/2025 Procedure Pass [facility] Imaging - Pet Scan, [facility] [place] [address] [place] [address] 06/29/2025 8:30 AM EST Office Visit [facility] Cardiology Clinic at the [facility] [place] [address] [facility], 5th Floor, [address] [place] [address] Geronimo Thompson MD [address] [phone] [email or web address] 06/30/2025 11:15 AM EST Appointment [facility] Imaging - Pet Scan, [facility] [address] [place] [address] Salvador Anaya MD [address] [place] [phone] [email or web address] 07/02/2025 11:45 AM EST Office Visit [facility] Cardiology Clinic [address] [place] [address] Bryn Dominguez MD 19 [place] [address] [email or web address] 02/17/2026 3:20 PM EDT Office Visit [facility] Rheumatology Clinic [address] [facility], 4th Floor, [address] [place] [address] Salvador Anaya MD [address] [place] [phone] [email or web address] [facility] documented as of this encounter Visit Diagnoses Not on filedocumented in this encounter Additional Health Concerns Infection Onset Date Last Indicated Resolved Time CoV-Risk Comment:Per note documentation 03/28/2025 03/28/2025 9:57 AM EDT documented as of this encounter Care Teams Director Of Flight Operations Relationship Specialty Start Date End Date Carolina Madison MD [address] [place] [address] PCP - General Internal Medicine 12/10/24 Aleshia Leonard MD [address] [address] MARIA [email or web address] [email or web address] 234 BEDS AT THE [facility] Thoracic Surgery 01/26/25 Bryn Dominguez MD 19 [place] [address] [email or web address] Cardiology 02/25/25 Ivonne Chicas APRN 19 [place] [address] [email or web address] Nurse Practitioner 04/06/25 documented as of this encounter Additional Source Comments The information contained in this document represents components of the legal health record. It is not the complete legal health record.[facility]
--- OUTSIDE RECORDS SUMMARY | 2025-06-16 10:55 | XMS_ITS | Encounter Summary ---
Author Organization [facility] Address [address] [place] [address] Phone Care Team Providers Care Residential Roofer Name Role Phone Carolina Madison MD Primary Care Provider [phone] Aleshia Leonard MD Unavailable [phone] Bryn Dominguez MD Unavailabl e Ivonne Chicas APRN Unavailable [phone] Encounter Details Date Type Department Care Team (Late st Contact Info) Description 02/12/2025 Procedure Pass [facility] [address] [place] [address] Social History Tobacco Use Types Packs/Day Years [...] st Contact Info) Description 06/01/2025 Procedure Pass [facility] Imaging - Pet Scan, [facility] [address] [place] [address] 06/29/2025 8:30 AM EST Office Visit [facility] at the [address], 5[address] Floor, [address] [place] [address] Geronimo Thompson MD [address] [place] [phone] [email or web address] 06/30/2025 11:15 AM EST Appointment [facility] Imaging - Pet Scan, [facility] [address] [place] [address] Salvador Anaya MD [address] [place] [address] [address] [place] [phone] [email or web address] 07/02/2025 11:45 AM EST Office Visit [facility] [address] [place] [address] Bryn Dominguez MD 19 [place] [address] 02/17/2026 3:20 PM EDT Office Visit [facility] [address], 4th Floor, [address] [place] [address] Salvador Anaya MD [address] [facility] [address] [place] [phone] [email or web address] documented as of this encounter Visit Diagnoses Not on filedocumented in this encounter Additional Health Concerns Infection Onset Date Last Indicated Resolved Time CoV-Risk Comment:Per note documentation 03/28/2025 03/28/2025 9:57 AM EDT documented as of this encounter Care Teams Residential Roofer Relationship Specialty Start Date End Date Carolina Madison MD [facility] [place] [address] PCP - General Internal Medicine 12/10/24 Aleshia Leonard MD [address] [facility] [address] [place] [address] [email or web address] Thoracic Surgery 01/26/25 Bryn Dominguez MD 19 [place] [address] [email or web address] Cardiology 02/25/25 Ivonne Chicas APRN 19 [place] [address] [email or web address] Nurse Practitioner 04/06/25 documented as of this encounter Additional Source Comments The information contained in this document represents components of the legal health record. It is not the complete legal health record.[facility]
--- OUTSIDE RECORDS SUMMARY | 2025-06-16 10:55 | XMS_ITS | Encounter Summary ---
Author Organization [facility] Address [address] [place] [address] Phone Care Team Providers Care Ice Guard Skating Rink Name Role Phone Carolina Madison MD Primary Care Provider [phone] Aleshia Leonard MD Unavailable [phone] Bryn Dominguez MD Unavailabl e LeaderIvonne APRN Unavailable [phone] Encounter Details Date Type Department Care Team (Late st Contact Info) Description 04/05/2025 Procedure Pass [facility] [place] [address] [facility], 6th [place] [address] Social History Tobacco Use Types Packs/Day Years [...] st Contact Info) Description 06/01/2025 Procedure Pass [facility] Imaging - Pet Scan, [facility] [address] [place] [address] 06/29/2025 8:30 AM EST Office Visit [facility] at the [facility] Heart [address], 5[address], [address] [place] [address] Geronimo Thompson MD [address] [facility] [address] [phone] [email or web address] 06/30/2025 11:15 AM EST Appointment [facility] Imaging - Pet Scan, [facility] [address] [place] [address] Salvador Anaya MD [address] [facility] [address] [phone] [email or web address] 07/02/2025 11:45 AM EST Office Visit [facility] Cardiology [facility] 19 [place] [address] Bryn Dominguez MD 19 [place] [address] [email or web address] 02/17/2026 3:20 PM EDT Office Visit [facility] [address] [facility] [facility], 4th Floor, [address] [place] [address] Salvador Anaya MD [address] [place] [phone] [email or web address] documented as of this encounter Visit Diagnoses Not on filedocumented in this encounter Care Teams Ice Guard Skating Rink Relationship Specialty Start Date End Date Carolina Madison MD [address] [place] [address] PCP - General Internal Medicine 12/10/24 Aleshia Leonard MD [address] [facility] [address] [place] [address] [email or web address] Surgery 01/26/25 Bryn Dominguez MD [address] [place] [address] [email or web address] Cardiology 02/25/25 LeaderIvonne APRN [address] [place] [phone] [email or web address] Nurse Practitioner 04/06/25 documented as of this encounter Additional Source Comments The information contained in this document represents components of the legal health record. It is not the complete legal health record.[facility]
== END 2025-06-16 10:42 | disposition home or self-care (01) ==
LOC: HO.HKA 09:59
PROVIDERS: PCP Internal Medicine; Visit Provider Internal Medicine Nephrology
DX: I15.0 Renovascular hypertension (principal); N18.4 Chronic kidney disease, stage 4 (severe); N28.1 Cyst of kidney, acquired
CPT/HCPCS: 99214